=== PATIENT | male | born 1955 | race Two or more races ===

== ENCOUNTER 2017-09-29 12:45 | Emergency (ER) | payer MEDICAID ==
[~2017-09-29] VITALS: Ht 177.8 cm; Wt 90.3 kg
[2017-09-29 12:46] VITALS: BP 138/80
--- NOTE | 2017-09-29 12:46 | Emergency Room Report ---
History of Present Illness General Source: EMS Present Illness HPI Patient was sent from half-way after G-tube was accidentally removed. The patient was sent in for G-tube replacement. Tube been replaced with a Parks catheter. There was no drainage from the G-tube. Patient had not been vomiting. There was no fever. The patient noted be nonverbal. Allergies: Coded Allergies: No Known Allergies (Unverified , 09/29/17) Patient History Past Medical History: see triage record Reviewed Nursing Documentation: PMH: Agreed; PSxH: Agreed Review of Systems All Other Systems: limited - by nonverbal Physical Exam General Appearance: well appearing, no apparent distress, alert, Chronically Ill Head: atraumatic ENT: other - nonverbal Neck: supple, limited range of motion Respiratory: no respiratory distress Gastrointestinal: soft, other - abdomen with parks through stoma, slight drainage Musculoskeletal: no calf tenderness Neurologic: alert, motor weakness, other - eyes open, makes hand signs Psychiatric: mood/affect normal Skin: no rash, other - slight bleeding from stoma Medical Decision Making Diagnostic Impression: Primary Impression: PEG (percutaneous endoscopic gastrostomy) adjustment/replacement/removal ER Course Patient presented for G-tube replacement. Gastrostomy tube was replaced with sterile technique. Post procedure x-ray showed adequate gastrostomy tube placement. Patient tolerated well without complications. The patient was discharged back to half-way. Patient was return for persistent vomiting, other concerns. Status: improved Disposition: [facility] Condition: Stable Hansel Hernández MD Sep 29, 2017 12:46
[2017-09-29] MEDS ORDERED: Gastrograffin 30ml ORAL ONE (13:00)
--- NOTE | 2017-09-29 13:52 | Diagnostic Imaging Report ---
Indication: Dislodged gastrostomy tube. Status post Gastrostomy tube replacement. Technique: Portable frontal view of the abdomen obtained after injection of 30 mL of Gastrografin via the gastrostomy tube. Comparison: None Findings: Contrast opacification of the stomach, pylorus and proximal small bowel. Bowel gas pattern is nonspecific but not overtly obstructive. No acute osseous abnormality. Impression: Gastrostomy tube in the stomach.
== END 2017-09-29 13:10 ==
LOC: EDBD 12:45 → EMR 13:10
DX: Z43.1 Encounter for attention to gastrostomy (principal)
CPT/HCPCS: 43760; 74018; 99283; Q9963

== ENCOUNTER 2018-04-14 19:58 | Inpatient (IN) | payer MEDICAID, OTHER ==
[~2018-04-14] VITALS: Ht 180.3 cm; Wt 103.9 kg
[~2018-04-14 19:58] MED LIST: COLACE100 MG ORAL; DULCOLAX10 MG RC; FLEET ENEMA133 ML RECTAL; IPRATROPIUM BRO15 ML NS; MIDODRINE HCL10 MG ORAL; MILK OF MA400 MG/51 ORAL; PANTOPRAZOLE SO40 MG ORAL; SENNA8.6 M2 PO; TYLENOL325 MG ORAL; ZINC SULFATE220 M1 ORAL
--- NOTE | 2018-04-14 20:17 | Emergency Room Report ---
History of Present Illness General Chief Complaint: Altered Level of Consciousness Source: Medical Record, EMS Present Illness HPI 62-year-old [facility], history of diabetes dysphagia hyperlipidemia CVA bedbound is presenting with altered mental status. Reportedly patient is more altered than his normal. Patient is able to nod yes and no to questions, he seems to be alert, he is also following commands. It looks like he was discharged from [facility] at the end of January for acute renal failure hyperglycemia and hyperkalemia and respiratory distress Allergies: Coded Allergies: No Known Allergies (Unverified , 09/29/17) Patient History Limited by: medical condition Past Medical History: see triage record Past Surgical History: unable to obtain Pertinent Family History: unable to obtain Reviewed Nursing Documentation: PMH: Agreed; PSxH: Agreed Nursing Documentation-PMH Past Medical History: No History, Except For Hx Hypertension: Yes Hx Diabetes: Yes Hx Cerebrovascular Accident: Yes Review of Systems All Other Systems: limited - nonverb Physical Exam Vital Signs Date Time Temp Pulse Resp B/P (MAP) Pulse Ox O2 Delivery O2 Flow Rate FiO2 04/14/18 19:49 97.9 102 19 112/68 94 Nasal Cannula 2.0 Sp02 EP Interpretation: reviewed, normal General Appearance: mild distress, Chronically Ill Head: normocephalic, atraumatic Eyes: bilateral eye normal inspection, bilateral eye PERRL, bilateral eye EOMI ENT: normal ENT inspection, normal pharynx, normal voice, moist mucus membranes Neck: normal inspection, full range of motion, supple Respiratory: no respiratory distress, no retraction, no accessory muscle use Cardiovascular #1: normal inspection, regular rate, rhythm, no edema, normal capillary refill Cardiovascular #2: 2+ radial (R), 2+ radial (L) Gastrointestinal: other - peg tube, nontender entire abd Genitourinary: no CVA tenderness Musculoskeletal: normal inspection, back normal, normal range of motion, non- tender Neurologic: other - awake, eyes open, answering yes/no questiosn appropriately with head mvoements, squeezes hand on command Psychiatric: other Skin: normal inspection, normal color, no rash, warm/dry, well hydrated, normal turgor Medical Decision Making Diagnostic Impression: Primary Impression: Altered level of consciousness ER Course 61-year-old male here for being more altered than his normal, unknown time frame DDX: Dehydration, metabolic, ACS, UTI, pneumonia, ICH/CVA Plan: Obtain labs, ua, EKG, CXR CT head ER course: Patient has been monitored during ED stay, HD stable awake and alert Signed out to Dr Raines Pls follow up labs and reassess for final disposition Please note that this Emergency Department Report was dictated using [employer] nurse technology software, occasionally this can lead to erroneous entry secondary to interpretation by the dictation equipment. EKG Diagnostic Results EP Interpretation: Yes Rate: Tachycardic Rhythm: NSR ST Segments: No acute changes , PVCs ASA given to patient: No Rhythm Strip EP Interpretation: Yes Rate:105 Rhythm: NSR, + PVCs, no ectopy Chest X-ray CXR: Ordered: Yes 1 view Indication: Altered mental status EP interpretation: Yes Interpretation: No consolidation, no effusion, no PTX, no acute cardiopulmonary disease Impression: No acute disease Electronically signed by Maliha Thomas MD CT/MRI/US Diagnostic Results CT/MRI/US Diagnostic Results : Imaging Test Ordered: CT HEAD Impression No acute intracranial process. Involutional changes with small vessel disease. Old infarcts. Old orbital fractures. Last Vital Signs Date Time Temp Pulse Resp B/P (MAP) Pulse Ox O2 Delivery O2 Flow Rate FiO2 04/14/18 19:49 97.9 102 19 112/68 94 Nasal Cannula 2.0 Maliha Thomas M.D. Apr 14, 2018 20:17
[2018-04-14 21:25] LABS: HEMATOCRIT 28.8 % (42.0-52.0); HEMOGLOBIN 9.1 G/DL (14.2-18.0); MEAN CORPUSCULAR VOLUME 80 FL (80-99); PLATELET COUNT 480 K/UL (150-450); RED BLOOD COUNT 3.61 M/UL (4.70-6.10); RED CELL DISTRIBUTION WIDTH 15.8 % (11.6-14.8); WHITE BLOOD COUNT 18.3 K/UL (4.8-10.8)
[2018-04-14 21:26] LABS: BASOPHILS % (AUTO) 1.6 % (0.0-2.0); EOSINOPHILS % (AUTO) 2.2 % (0.0-3.0); LYMPHOCYTES % (AUTO) 11.3 % (20.0-45.0); MONOCYTES % (AUTO) 5.2 % (1.0-10.0); NEUTROPHILS % (AUTO) 79.7 % (45.0-75.0)
[2018-04-14 21:29] LABS: APPEARANCE,URINE SLIGHTLY CLOUDY; BILIRUBIN, URINE NEGATIVE (NEGATIVE); GLUCOSE, URINE (UA) 3+ (NEGATIVE); KETONES,URINE 1+ (NEGATIVE); LEUKOCYTE ESTERASE ,URINE 1+ (NEGATIVE); NITRITE,URINE NEGATIVE (NEGATIVE); PH,URINE 5 (4.5-8.0); PROTEIN,URINE 3+ (NEGATIVE); UROBILINOGEN,URINE 8 MG/DL (0.0-1.0)
[2018-04-14 21:30] VITALS: BP 145/93
[2018-04-14 21:30] LABS: COLOR,URINE AMBER
[2018-04-14 21:33] LABS: ANION GAP 5 mmol/L (5-15); BLOOD UREA NITROGEN 28 mg/dL (7-18); CALCIUM 8.8 MG/DL (8.5-10.1); CARBON DIOXIDE 32 MMOL/L (21-32); CHLORIDE 96 MMOL/L (98-107); CREATININE 0.7 MG/DL (0.55-1.30); POTASSIUM 3.5 MMOL/L (3.5-5.1); SODIUM 133 MMOL/L (136-145)
[2018-04-14 21:38] LABS: ALANINE AMINOTRANSFERASE 17 U/L (12-78); ALBUMIN 1.5 G/DL (3.4-5.0); ALBUMIN/GLOBULIN RATIO 0.3 (1.0-2.7); ALKALINE PHOSPHATASE 110 U/L (46-116); ASPARTATE AMINO TRANSFERASE 19 U/L (15-37); BILIRUBIN,TOTAL 0.6 MG/DL (0.2-1.0); CREATINE KINASE 44 U/L (26-308)
[2018-04-14] MEDS ORDERED: cefTRIAXone 1 GM in NS 55 ML IVPB ONE (22:15)
[2018-04-14 22:30] VITALS: BP 158/93
[2018-04-14 23:30] VITALS: BP 103/69
[2018-04-15] VITALS (7 sets, daily range): BP systolic 90–137; BP diastolic 48–70
[2018-04-15] MEDS ORDERED: Metoprolol 5mg/5ml Inj IVP ONE (01:00)
[2018-04-15] MEDS ORDERED: dilTIAZem HCl 25mg/5ml Inj ONE (02:41)
[2018-04-15 05:24] LABS: APPEARANCE,URINE CLOUDY; BILIRUBIN, URINE NEGATIVE (NEGATIVE); COLOR,URINE YELLOW; GLUCOSE, URINE (UA) NEGATIVE (NEGATIVE); KETONES,URINE NEGATIVE (NEGATIVE); LEUKOCYTE ESTERASE ,URINE 1+ (NEGATIVE); NITRITE,URINE NEGATIVE (NEGATIVE); PH,URINE 6 (4.5-8.0); PROTEIN,URINE 2+ (NEGATIVE); UROBILINOGEN,URINE 4 MG/DL (0.0-1.0)
[2018-04-15 05:46] LABS: HEMATOCRIT 26.1 % (42.0-52.0); HEMOGLOBIN 8.2 G/DL (14.2-18.0); MEAN CORPUSCULAR VOLUME 80 FL (80-99); PLATELET COUNT 435 K/UL (150-450); RED BLOOD COUNT 3.27 M/UL (4.70-6.10); RED CELL DISTRIBUTION WIDTH 16.3 % (11.6-14.8); WHITE BLOOD COUNT 15.5 K/UL (4.8-10.8)
[2018-04-15 06:01] LABS: ANION GAP 4 mmol/L (5-15); BLOOD UREA NITROGEN 21 mg/dL (7-18); CALCIUM 8.1 MG/DL (8.5-10.1); CARBON DIOXIDE 29 MMOL/L (21-32); CHLORIDE 102 MMOL/L (98-107); CREATININE 0.6 MG/DL (0.55-1.30); POTASSIUM 3.8 MMOL/L (3.5-5.1); SODIUM 135 MMOL/L (136-145)
[2018-04-15] MEDS ORDERED: Zinc Sulfate 220mg cap ORAL SCH (09:00)
[2018-04-15] MEDS ORDERED: Docusate 100mg/10ml Liq NG SCH (09:00)
[2018-04-15] MEDS ORDERED: Milk of Magnesia 30ml Ud ORAL SCH (09:00)
[2018-04-15] MEDS ORDERED: Docusate 100mg cap ORAL SCH (09:00)
[2018-04-15] MEDS ORDERED: Fleet's Enema 133ml RECTAL SCH (09:00)
[2018-04-15] MEDS ORDERED: Midodrine 10mg tab ORAL SCH (09:00)
[2018-04-15] MEDS ORDERED: Acetaminophen 650mg/20.3ml NG PRN ×2 (09:30→15:18)
[2018-04-15] MEDS ORDERED: Acetaminophen 650mg/20.3ml ORAL PRN (09:30)
--- NOTE | 2018-04-15 10:42 | Diagnostic Imaging Report ---
Indication: Shortness of breath Technique: One view of the chest Comparison: none Findings: The heart is upper limits normal in size. The lungs and pleural spaces are clear. Impression: No acute process
[2018-04-15] MEDS ORDERED: Midodrine 10mg tab NG SCH ×2 (13:00→18:00)
--- NOTE | 2018-04-15 13:37 | History and Physical ---
History of Present Illness General Date patient seen: Apr 15, 2018 Time patient seen: 08:30 Reason for Hospitalization: Altered Level of Consciousness Present Illness HPI 62 year old man from [facility], history of diabetes type 2, CVA, dysphagia hyperlipidemia who presented from the facility with confusion, worse than baseline mentation. In ED he was found to have fever of 101 and leukocytosis + pyuria. Patient is unable to provide any information due to his current medical condition Family and Social History - unable to obtain from patient Allergies: Coded Allergies: No Known Allergies (Unverified , 09/29/17) Medication History Scheduled Docusate Sodium* (Colace*), 100 MG ORAL DAILY, (Reported) Magnesium Hydroxide* (Milk Of Magnesia*), 30 ML ORAL DAILY, (Reported) Midodrine* (Proamatine*), 10 MG ORAL THREE TIMES A DAY, (Reported) Na Phos,M-B/Na Phos,Di-Ba* (Fleet Enema*), 133 ML RECTAL DAILY, (Reported) Pantoprazole* (Pantoprazole*), 40 MG ORAL DAILY, (Reported) Zinc Sulfate (Zinc Sulfate*), 220 MG ORAL DAILY, (Reported) Scheduled PRN Acetaminophen (Tylenol), 650 MG ORAL Q6H PRN for Prn Pain/Headache/Temp > 101, ( Reported) Miscellaneous Medications Bisacodyl (Dulcolax), 10 MG RC, (Reported) Ipratropium [place] (Ipratropium [place]), 15 ML NS, (Reported) Sennosides (Senna), 8.6 MG PO, (Reported) Patient History Healthcare decision maker Resuscitation status Advanced Directive on File Review of Systems ROS Narrative Unable to obtain due to acute encephalopathy Physical Exam General Appearance: no apparent distress, alert HEENT: normocephalic, atraumatic Neck: normal alignment, supple Respiratory/Chest: chest wall non-tender, lungs clear, normal breath sounds Cardiovascular/Chest: normal peripheral pulses, normal rate, regular rhythm Abdomen: normal bowel sounds, non tender Neurologic: alert Last 24 Hour Vital Signs Date Time Temp Pulse Resp B/P (MAP) Pulse Ox O2 Delivery O2 Flow Rate FiO2 04/15/18 10:32 98.2 116 20 111/65 (80) 97 04/15/18 05:27 Nasal Cannula 2.0 04/15/18 04:00 101.5 137 40 90/48 (62) 97 04/15/18 01:44 137 153/103 04/15/18 01:34 98.3 121 19 95/59 95 Nasal Cannula 2.0 04/14/18 23:30 97.9 119 19 103/69 97 Nasal Cannula 2.0 04/14/18 22:30 97.9 19 158/93 96 Nasal Cannula 2.0 04/14/18 21:30 97.9 122 19 145/93 96 Nasal Cannula 2.0 04/14/18 20:30 102 19 Nasal Cannula 2.0 04/14/18 19:49 97.9 102 19 112/68 94 Nasal Cannula 2.0 Laboratory Tests Test 04/14/18 20:50 04/14/18 21:10 04/15/18 01:32 04/15/18 04:43 White Blood Count 18.3 K/UL (4.8-10.8) H Red Blood Count 3.61 M/UL (4.70-6.10) L Hemoglobin 9.1 G/DL (14.2-18.0) L Hematocrit 28.8 % (42.0-52.0) L Mean Corpuscular Volume 80 FL (80-99) Mean Corpuscular Hemoglobin 25.3 PG (27.0-31.0) L Mean Corpuscular Hemoglobin Concent 31.7 G/DL (32.0-36.0) L Red Cell Distribution Width 15.8 % (11.6-14.8) H Platelet Count 480 K/UL (150-450) H Mean Platelet Volume 6.3 FL (6.5-10.1) L Neutrophils (%) (Auto) 79.7 % (45.0-75.0) H Lymphocytes (%) (Auto) 11.3 % (20.0-45.0) L Monocytes (%) (Auto) 5.2 % (1.0-10.0) Eosinophils (%) (Auto) 2.2 % (0.0-3.0) Basophils (%) (Auto) 1.6 % (0.0-2.0) Sodium Level 133 MMOL/L (136-145) L Potassium Level 3.5 MMOL/L (3.5-5.1) Chloride Level 96 MMOL/L (98-107) L Carbon Dioxide Level 32 MMOL/L (21-32) Anion Gap 5 mmol/L (5-15) Blood Urea Nitrogen 28 mg/dL (7-18) H Creatinine 0.7 MG/DL (0.55-1.30) Estimat Glomerular Filtration Rate > 60 mL/min (>60) Glucose Level 203 MG/DL (74-106) H Lactic Acid Level 1.30 mmol/L (0.4-2.0) Calcium Level 8.8 MG/DL (8.5-10.1) Total Bilirubin 0.6 MG/DL (0.2-1.0) Aspartate Amino Transf (AST/SGOT) 19 U/L (15-37) Alanine Aminotransferase (ALT/SGPT) 17 U/L (12-78) Alkaline Phosphatase 110 U/L (46-116) Total Creatine Kinase 44 U/L (26-308) Troponin I 0.000 ng/mL (0.000-0.056) Total Protein 7.3 G/DL (6.4-8.2) Albumin 1.5 G/DL (3.4-5.0) L Globulin 5.8 g/dL Albumin/Globulin Ratio 0.3 (1.0-2.7) L Urine Color Sera Yellow Urine Appearance Slightly cloudy Cloudy Urine pH 5 (4.5-8.0) 6 (4.5-8.0) Urine Specific [place] 1.010 (1.005-1.035) 1.015 (1.005-1.035) Urine Protein 3+ (NEGATIVE) H 2+ (NEGATIVE) H Urine Glucose (UA) 3+ (NEGATIVE) H Negative (NEGATIVE) Urine Ketones 1+ (NEGATIVE) H Negative (NEGATIVE) Urine Blood 5+ (NEGATIVE) H 5+ (NEGATIVE) H Urine Nitrite Negative (NEGATIVE) Negative (NEGATIVE) Urine Bilirubin Negative (NEGATIVE) Negative (NEGATIVE) Urine Ictotest Negative (NEGATIVE) Urine Urobilinogen 8 MG/DL (0.0-1.0) H 4 MG/DL (0.0-1.0) H Urine Leukocyte Esterase 1+ (NEGATIVE) H 1+ (NEGATIVE) H Urine RBC Tntc /HPF (0 - 0) H Tntc /HPF (0 - 0) H Urine WBC 5-10 /HPF (0 - 0) H 15-20 /HPF (0 - 0) H Urine Squamous Epithelial Cells Few /LPF (NONE/OCC) None /LPF (NONE/OCC) Urine Bacteria Few /HPF (NONE) Few /HPF (NONE) Arterial Blood pH 7.499 (7.350-7.450) Arterial Blood Partial Pressure CO2 38.3 mmHg (35.0-45.0) Arterial Blood Partial Pressure O2 69.3 mmHg (75.0-100.0) L Arterial Blood HCO3 29.1 mmol/L (22.0-26.0) H Arterial Blood Oxygen Saturation 93.7 % (95-100) L Arterial Blood Base Excess 5.6 (-2-2) H Richi Test Positive Test 04/15/18 05:24 White Blood Count 15.5 K/UL (4.8-10.8) H Red Blood Count 3.27 M/UL (4.70-6.10) L Hemoglobin 8.2 G/DL (14.2-18.0) L Hematocrit 26.1 % (42.0-52.0) L Mean Corpuscular Volume 80 FL (80-99) Mean Corpuscular Hemoglobin 25.1 PG (27.0-31.0) L Mean Corpuscular Hemoglobin Concent 31.5 G/DL (32.0-36.0) L Red Cell Distribution Width 16.3 % (11.6-14.8) H Platelet Count 435 K/UL (150-450) Mean Platelet Volume 6.6 FL (6.5-10.1) Neutrophils (%) (Auto) % (45.0-75.0) Lymphocytes (%) (Auto) % (20.0-45.0) Monocytes (%) (Auto) % (1.0-10.0) Eosinophils (%) (Auto) % (0.0-3.0) Basophils (%) (Auto) % (0.0-2.0) Sodium Level 135 MMOL/L (136-145) L Potassium Level 3.8 MMOL/L (3.5-5.1) Chloride Level 102 MMOL/L (98-107) Carbon Dioxide Level 29 MMOL/L (21-32) Anion Gap 4 mmol/L (5-15) L Blood Urea Nitrogen 21 mg/dL (7-18) H Creatinine 0.6 MG/DL (0.55-1.30) Estimat Glomerular Filtration Rate > 60 mL/min (>60) Glucose Level 196 MG/DL (74-106) H Calcium Level 8.1 MG/DL (8.5-10.1) L Height (Feet): 5 Height (Inches): 11.00 Weight (Pounds): 174 Medications Current Medications Medications (Trade) Dose Ordered Sig/Patience Route PRN Reason Start Time Stop Time Status Last Admin Dose Admin Acetaminophen (Tylenol) 650 mg Q6H PRN NG Prn Pain/Headache/Temp > 101 04/15/18 09:30 05/15/18 04:44 Ceftriaxone Sodium 1 gm/ Dextrose 55 ml @ 110 mls/hr Q24H IVPB 04/15/18 22:00 04/22/18 21:59 Docusate Sodium (Colace) 100 mg DAILY NG 04/15/18 09:00 05/15/18 08:59 04/15/18 12:29 Lansoprazole (Prevacid) 30 mg DAILY NG 04/16/18 09:00 05/16/18 08:59 Magnesium Hydroxide (Mom) 30 ml DAILY NG 04/16/18 09:00 05/15/18 08:59 Midodrine (Pro-Amatine) 10 mg THREE TIMES A DAY NG 04/15/18 13:00 05/15/18 08:59 04/15/18 12:30 Sennosides (Senokot) 8.6 mg BEDTIME NG 04/15/18 21:00 05/15/18 20:59 Sodium Phosphate (Fleet's Sodium Phosl Enema) 133 ml DAILY RECTAL 04/15/18 09:00 05/15/18 08:59 04/15/18 08:42 Zinc Sulfate (Zinc Sulfate) 220 mg DAILY NG 04/16/18 09:00 05/15/18 08:59 Assessment/Plan Assessment/Plan #Acute metabolic encephalopathy #Severe Sepsis #UTI #Hyponatremia -admit to telemetry unit -broaden antibiotic to meropenem -follow up blood and urine culture -IV hydration -Repeat BMP in AM -check serial troponins -ID evaluation -Supportive care -Fall precautions -Aspiration precautions Reginald Pulido MD Apr 15, 2018 13:37
--- NOTE | 2018-04-15 14:09 | Infectious Diseases Prog Note ---
Assessment/Plan Assessment/Plan Full consult dictated: A) 1) sepsis, leukocytosis, fevers 2) uti, + ua 3) pmh noted 4) allergies - nkda P) 1) vancomycin, meropenem 2) check cultures, labs and chest x-ray 3) thank you Subjective Allergies: Coded Allergies: No Known Allergies (Unverified , 09/29/17) Objective Vital Signs Last 24 Hour Vital Signs Date Time Temp Pulse Resp B/P (MAP) Pulse Ox O2 Delivery O2 Flow Rate FiO2 04/15/18 10:32 98.2 116 20 111/65 (80) 97 04/15/18 05:27 Nasal Cannula 2.0 04/15/18 04:00 101.5 137 40 90/48 (62) 97 04/15/18 01:44 137 153/103 04/15/18 01:34 98.3 121 19 95/59 95 Nasal Cannula 2.0 04/14/18 23:30 97.9 119 19 103/69 97 Nasal Cannula 2.0 04/14/18 22:30 97.9 19 158/93 96 Nasal Cannula 2.0 04/14/18 21:30 97.9 122 19 145/93 96 Nasal Cannula 2.0 04/14/18 20:30 102 19 Nasal Cannula 2.0 04/14/18 19:49 97.9 102 19 112/68 94 Nasal Cannula 2.0 Height (Feet): 5 Height (Inches): 11.00 Weight (Pounds): 174 Laboratory Tests Test 04/14/18 20:50 04/14/18 21:10 04/15/18 01:32 04/15/18 04:43 White Blood Count 18.3 K/UL (4.8-10.8) H Red Blood Count 3.61 M/UL (4.70-6.10) L Hemoglobin 9.1 G/DL (14.2-18.0) L Hematocrit 28.8 % (42.0-52.0) L Mean Corpuscular Volume 80 FL (80-99) Mean Corpuscular Hemoglobin 25.3 PG (27.0-31.0) L Mean Corpuscular Hemoglobin Concent 31.7 G/DL (32.0-36.0) L Red Cell Distribution Width 15.8 % (11.6-14.8) H Platelet Count 480 K/UL (150-450) H Mean Platelet Volume 6.3 FL (6.5-10.1) L Neutrophils (%) (Auto) 79.7 % (45.0-75.0) H Lymphocytes (%) (Auto) 11.3 % (20.0-45.0) L Monocytes (%) (Auto) 5.2 % (1.0-10.0) Eosinophils (%) (Auto) 2.2 % (0.0-3.0) Basophils (%) (Auto) 1.6 % (0.0-2.0) Sodium Level 133 MMOL/L (136-145) L Potassium Level 3.5 MMOL/L (3.5-5.1) Chloride Level 96 MMOL/L (98-107) L Carbon Dioxide Level 32 MMOL/L (21-32) Anion Gap 5 mmol/L (5-15) Blood Urea Nitrogen 28 mg/dL (7-18) H Creatinine 0.7 MG/DL (0.55-1.30) Estimat Glomerular Filtration Rate > 60 mL/min (>60) Glucose Level 203 MG/DL (74-106) H Lactic Acid Level 1.30 mmol/L (0.4-2.0) Calcium Level 8.8 MG/DL (8.5-10.1) Total Bilirubin 0.6 MG/DL (0.2-1.0) Aspartate Amino Transf (AST/SGOT) 19 U/L (15-37) Alanine Aminotransferase (ALT/SGPT) 17 U/L (12-78) Alkaline Phosphatase 110 U/L (46-116) Total Creatine Kinase 44 U/L (26-308) Troponin I 0.000 ng/mL (0.000-0.056) Total Protein 7.3 G/DL (6.4-8.2) Albumin 1.5 G/DL (3.4-5.0) L Globulin 5.8 g/dL Albumin/Globulin Ratio 0.3 (1.0-2.7) L Urine Color Sera Yellow Urine Appearance Slightly cloudy Cloudy Urine pH 5 (4.5-8.0) 6 (4.5-8.0) Urine Specific [place] 1.010 (1.005-1.035) 1.015 (1.005-1.035) Urine Protein 3+ (NEGATIVE) H 2+ (NEGATIVE) H Urine Glucose (UA) 3+ (NEGATIVE) H Negative (NEGATIVE) Urine Ketones 1+ (NEGATIVE) H Negative (NEGATIVE) Urine Blood 5+ (NEGATIVE) H 5+ (NEGATIVE) H Urine Nitrite Negative (NEGATIVE) Negative (NEGATIVE) Urine Bilirubin Negative (NEGATIVE) Negative (NEGATIVE) Urine Ictotest Negative (NEGATIVE) Urine Urobilinogen 8 MG/DL (0.0-1.0) H 4 MG/DL (0.0-1.0) H Urine Leukocyte Esterase 1+ (NEGATIVE) H 1+ (NEGATIVE) H Urine RBC Tntc /HPF (0 - 0) H Tntc /HPF (0 - 0) H Urine WBC 5-10 /HPF (0 - 0) H 15-20 /HPF (0 - 0) H Urine Squamous Epithelial Cells Few /LPF (NONE/OCC) None /LPF (NONE/OCC) Urine Bacteria Few /HPF (NONE) Few /HPF (NONE) Arterial Blood pH 7.499 (7.350-7.450) Arterial Blood Partial Pressure CO2 38.3 mmHg (35.0-45.0) Arterial Blood Partial Pressure O2 69.3 mmHg (75.0-100.0) L Arterial Blood HCO3 29.1 mmol/L (22.0-26.0) H Arterial Blood Oxygen Saturation 93.7 % (95-100) L Arterial Blood Base Excess 5.6 (-2-2) H Richi Test Positive Test 04/15/18 05:24 White Blood Count 15.5 K/UL (4.8-10.8) H Red Blood Count 3.27 M/UL (4.70-6.10) L Hemoglobin 8.2 G/DL (14.2-18.0) L Hematocrit 26.1 % (42.0-52.0) L Mean Corpuscular Volume 80 FL (80-99) Mean Corpuscular Hemoglobin 25.1 PG (27.0-31.0) L Mean Corpuscular Hemoglobin Concent 31.5 G/DL (32.0-36.0) L Red Cell Distribution Width 16.3 % (11.6-14.8) H Platelet Count 435 K/UL (150-450) Mean Platelet Volume 6.6 FL (6.5-10.1) Neutrophils (%) (Auto) % (45.0-75.0) Lymphocytes (%) (Auto) % (20.0-45.0) Monocytes (%) (Auto) % (1.0-10.0) Eosinophils (%) (Auto) % (0.0-3.0) Basophils (%) (Auto) % (0.0-2.0) Sodium Level 135 MMOL/L (136-145) L Potassium Level 3.8 MMOL/L (3.5-5.1) Chloride Level 102 MMOL/L (98-107) Carbon Dioxide Level 29 MMOL/L (21-32) Anion Gap 4 mmol/L (5-15) L Blood Urea Nitrogen 21 mg/dL (7-18) H Creatinine 0.6 MG/DL (0.55-1.30) Estimat Glomerular Filtration Rate > 60 mL/min (>60) Glucose Level 196 MG/DL (74-106) H Calcium Level 8.1 MG/DL (8.5-10.1) L Current Medications Medications (Trade) Dose Ordered Sig/Patience Route PRN Reason Start Time Stop Time Status Last Admin Dose Admin Acetaminophen (Tylenol) 650 mg Q6H PRN NG Prn Pain/Headache/Temp > 101 04/15/18 09:30 05/15/18 04:44 Docusate Sodium (Colace) 100 mg DAILY NG 04/15/18 09:00 05/15/18 08:59 04/15/18 12:29 Lansoprazole (Prevacid) 30 mg DAILY NG 04/16/18 09:00 05/16/18 08:59 Magnesium Hydroxide (Mom) 30 ml DAILY NG 04/16/18 09:00 05/15/18 08:59 Meropenem 1 gm/ Sodium Chloride 55 ml @ 110 mls/hr Q8H IVPB 04/15/18 15:00 04/20/18 14:59 Midodrine (Pro-Amatine) 10 mg THREE TIMES A DAY NG 04/15/18 13:00 05/15/18 08:59 04/15/18 12:30 Sennosides (Senokot) 8.6 mg BEDTIME NG 04/15/18 21:00 05/15/18 20:59 Sodium Chloride 1,000 ml @ 150 mls/hr Q6H40M IV 04/15/18 14:00 05/15/18 13:59 Sodium Phosphate (Fleet's Sodium Phosl Enema) 133 ml DAILY RECTAL 04/15/18 09:00 05/15/18 08:59 04/15/18 08:42 Zinc Sulfate (Zinc Sulfate) 220 mg DAILY NG 04/16/18 09:00 05/15/18 08:59 Gwendolyn Marquez MD Apr 15, 2018 14:09
[2018-04-15] MEDS: Vancomycin 1gm/D5W 275ml IVPB SCH ×2 (15:00)
[2018-04-15] MEDS ORDERED: Meropenem 1 GM in NS 55 ML IVPB SCH (15:00)
[2018-04-15] MEDS: Meropenem 1 GM in NS 55 ML IVPB SCH ×2 (15:22→23:33)
[2018-04-15 15:46] LABS: HEMATOCRIT 24.9 % (42.0-52.0); HEMOGLOBIN 7.8 G/DL (14.2-18.0); MEAN CORPUSCULAR VOLUME 80 FL (80-99); PLATELET COUNT 417 K/UL (150-450); RED CELL DISTRIBUTION WIDTH 16.2 % (11.6-14.8); WHITE BLOOD COUNT 12.7 K/UL (4.8-10.8)
[2018-04-15 15:48] LABS: BASOPHILS % (AUTO) 1.3 % (0.0-2.0); EOSINOPHILS % (AUTO) 2.3 % (0.0-3.0); LYMPHOCYTES % (AUTO) 13.9 % (20.0-45.0); MONOCYTES % (AUTO) 4.5 % (1.0-10.0)
[2018-04-15 16:08] LABS: ANION GAP 5 mmol/L (5-15); BLOOD UREA NITROGEN 21 mg/dL (7-18); CALCIUM 7.7 MG/DL (8.5-10.1); CARBON DIOXIDE 31 MMOL/L (21-32); CHLORIDE 103 MMOL/L (98-107); CREATININE 0.5 MG/DL (0.55-1.30); POTASSIUM 3.4 MMOL/L (3.5-5.1); SODIUM 139 MMOL/L (136-145)
[2018-04-15 16:12] LABS: ALANINE AMINOTRANSFERASE 6 U/L (12-78); ALBUMIN 1.1 G/DL (3.4-5.0); ALBUMIN/GLOBULIN RATIO 0.2 (1.0-2.7); ALKALINE PHOSPHATASE 79 U/L (46-116); ASPARTATE AMINO TRANSFERASE 19 U/L (15-37); BILIRUBIN,TOTAL 0.3 MG/DL (0.2-1.0); PHOSPHORUS 3.1 MG/DL (2.5-4.9)
[2018-04-15] MEDS: Vancomycin 1 GM in D5W 275 ML IVPB SCH ×2 (16:12→23:35)
--- NOTE | 2018-04-15 16:55 | Consultation ---
History of Present Illness General Date patient seen: Apr 15, 2018 Chief Complaint: Altered Level of Consciousness Reason for Consultation: sepsis/wounds Present Illness HPI 62 year old male detention resident noted to have leukocytosis, fevers, altered status. admitted for care and management. on admission noted to have multiple wounds requiring care. surgery called to evaluate and assist with care /management. patient seen, chart reviewed, patient examined. Allergies: Coded Allergies: No Known Allergies (Unverified , 09/29/17) Medication History Scheduled Docusate Sodium* (Colace*), 100 MG ORAL DAILY, (Reported) Magnesium Hydroxide* (Milk Of Magnesia*), 30 ML ORAL DAILY, (Reported) Midodrine* (Proamatine*), 10 MG ORAL THREE TIMES A DAY, (Reported) Na Phos,M-B/Na Phos,Di-Ba* (Fleet Enema*), 133 ML RECTAL DAILY, (Reported) Pantoprazole* (Pantoprazole*), 40 MG ORAL DAILY, (Reported) Zinc Sulfate (Zinc Sulfate*), 220 MG ORAL DAILY, (Reported) Scheduled PRN Acetaminophen (Tylenol), 650 MG ORAL Q6H PRN for Prn Pain/Headache/Temp > 101, ( Reported) Miscellaneous Medications Bisacodyl (Dulcolax), 10 MG RC, (Reported) Ipratropium [place]on (Ipratropium [place]), 15 ML NS, (Reported) Sennosides (Senna), 8.6 MG PO, (Reported) Patient History Limited by: medical condition History Provided By: Medical Record, PMD Healthcare decision maker Resuscitation status Advanced Directive on File Past Medical/Surgical History Past Medical/Surgical History: (1) Sacral decubitus ulcer (2) Sepsis (3) Leukocytosis (4) Fever Review of Systems All Other Systems: negative except mentioned in HPI Physical Exam General Appearance: no apparent distress, alert Lines, tubes and drains: peripheral HEENT: mucous membranes moist Neck: normal inspection Respiratory/Chest: normal breath sounds Cardiovascular/Chest: regularly irregular Abdomen: soft, no organomegaly, no mass Extremities: other Skin Exam: other Last 24 Hour Vital Signs Date Time Temp Pulse Resp B/P (MAP) Pulse Ox O2 Delivery O2 Flow Rate FiO2 04/15/18 14:45 95.7 74 16 137/52 (80) 99 04/15/18 10:32 98.2 116 20 111/65 (80) 97 04/15/18 05:27 Nasal Cannula 2.0 04/15/18 04:00 101.5 137 40 90/48 (62) 97 04/15/18 01:44 137 153/103 04/15/18 01:34 98.3 121 19 95/59 95 Nasal Cannula 2.0 04/14/18 23:30 97.9 119 19 103/69 97 Nasal Cannula 2.0 04/14/18 22:30 97.9 19 158/93 96 Nasal Cannula 2.0 04/14/18 21:30 97.9 122 19 145/93 96 Nasal Cannula 2.0 04/14/18 20:30 102 19 Nasal Cannula 2.0 04/14/18 19:49 97.9 102 19 112/68 94 Nasal Cannula 2.0 Laboratory Tests Test 04/14/18 20:50 04/14/18 21:10 04/15/18 01:32 04/15/18 04:43 White Blood Count 18.3 K/UL (4.8-10.8) H Red Blood Count 3.61 M/UL (4.70-6.10) L Hemoglobin 9.1 G/DL (14.2-18.0) L Hematocrit 28.8 % (42.0-52.0) L Mean Corpuscular Volume 80 FL (80-99) Mean Corpuscular Hemoglobin 25.3 PG (27.0-31.0) L Mean Corpuscular Hemoglobin Concent 31.7 G/DL (32.0-36.0) L Red Cell Distribution Width 15.8 % (11.6-14.8) H Platelet Count 480 K/UL (150-450) H Mean Platelet Volume 6.3 FL (6.5-10.1) L Neutrophils (%) (Auto) 79.7 % (45.0-75.0) H Lymphocytes (%) (Auto) 11.3 % (20.0-45.0) L Monocytes (%) (Auto) 5.2 % (1.0-10.0) Eosinophils (%) (Auto) 2.2 % (0.0-3.0) Basophils (%) (Auto) 1.6 % (0.0-2.0) Sodium Level 133 MMOL/L (136-145) L Potassium Level 3.5 MMOL/L (3.5-5.1) Chloride Level 96 MMOL/L (98-107) L Carbon Dioxide Level 32 MMOL/L (21-32) Anion Gap 5 mmol/L (5-15) Blood Urea Nitrogen 28 mg/dL (7-18) H Creatinine 0.7 MG/DL (0.55-1.30) Estimat Glomerular Filtration Rate > 60 mL/min (>60) Glucose Level 203 MG/DL (74-106) H Lactic Acid Level 1.30 mmol/L (0.4-2.0) Calcium Level 8.8 MG/DL (8.5-10.1) Total Bilirubin 0.6 MG/DL (0.2-1.0) Aspartate Amino Transf (AST/SGOT) 19 U/L (15-37) Alanine Aminotransferase (ALT/SGPT) 17 U/L (12-78) Alkaline Phosphatase 110 U/L (46-116) Total Creatine Kinase 44 U/L (26-308) Troponin I 0.000 ng/mL (0.000-0.056) Total Protein 7.3 G/DL (6.4-8.2) Albumin 1.5 G/DL (3.4-5.0) L Globulin 5.8 g/dL Albumin/Globulin Ratio 0.3 (1.0-2.7) L Urine Color Sera Yellow Urine Appearance Slightly cloudy Cloudy Urine pH 5 (4.5-8.0) 6 (4.5-8.0) Urine Specific Baring 1.010 (1.005-1.035) 1.015 (1.005-1.035) Urine Protein 3+ (NEGATIVE) H 2+ (NEGATIVE) H Urine Glucose (UA) 3+ (NEGATIVE) H Negative (NEGATIVE) Urine Ketones 1+ (NEGATIVE) H Negative (NEGATIVE) Urine Blood 5+ (NEGATIVE) H 5+ (NEGATIVE) H Urine Nitrite Negative (NEGATIVE) Negative (NEGATIVE) Urine Bilirubin Negative (NEGATIVE) Negative (NEGATIVE) Urine Ictotest Negative (NEGATIVE) Urine Urobilinogen 8 MG/DL (0.0-1.0) H 4 MG/DL (0.0-1.0) H Urine Leukocyte Esterase 1+ (NEGATIVE) H 1+ (NEGATIVE) H Urine RBC Tntc /HPF (0 - 0) H Tntc /HPF (0 - 0) H Urine WBC 5-10 /HPF (0 - 0) H 15-20 /HPF (0 - 0) H Urine Squamous Epithelial Cells Few /LPF (NONE/OCC) None /LPF (NONE/OCC) Urine Bacteria Few /HPF (NONE) Few /HPF (NONE) Arterial Blood pH 7.499 (7.350-7.450) Arterial Blood Partial Pressure CO2 38.3 mmHg (35.0-45.0) Arterial Blood Partial Pressure O2 69.3 mmHg (75.0-100.0) L Arterial Blood HCO3 29.1 mmol/L (22.0-26.0) H Arterial Blood Oxygen Saturation 93.7 % (95-100) L Arterial Blood Base Excess 5.6 (-2-2) H Richi Test Positive Test 04/15/18 05:24 04/15/18 14:02 04/15/18 15:15 White Blood Count 15.5 K/UL (4.8-10.8) H 12.7 K/UL (4.8-10.8) H Red Blood Count 3.27 M/UL (4.70-6.10) L 3.10 M/UL (4.70-6.10) L Hemoglobin 8.2 G/DL (14.2-18.0) L 7.8 G/DL (14.2-18.0) L Hematocrit 26.1 % (42.0-52.0) L 24.9 % (42.0-52.0) L Mean Corpuscular Volume 80 FL (80-99) 80 FL (80-99) Mean Corpuscular Hemoglobin 25.1 PG (27.0-31.0) L 25.2 PG (27.0-31.0) L Mean Corpuscular Hemoglobin Concent 31.5 G/DL (32.0-36.0) L 31.3 G/DL (32.0-36.0) L Red Cell Distribution Width 16.3 % (11.6-14.8) H 16.2 % (11.6-14.8) H Platelet Count 435 K/UL (150-450) 417 K/UL (150-450) Mean Platelet Volume 6.6 FL (6.5-10.1) 6.2 FL (6.5-10.1) L Neutrophils (%) (Auto) % (45.0-75.0) 78.0 % (45.0-75.0) H Lymphocytes (%) (Auto) % (20.0-45.0) 13.9 % (20.0-45.0) L Monocytes (%) (Auto) % (1.0-10.0) 4.5 % (1.0-10.0) Eosinophils (%) (Auto) % (0.0-3.0) 2.3 % (0.0-3.0) Basophils (%) (Auto) % (0.0-2.0) 1.3 % (0.0-2.0) Sodium Level 135 MMOL/L (136-145) L 139 MMOL/L (136-145) Potassium Level 3.8 MMOL/L (3.5-5.1) 3.4 MMOL/L (3.5-5.1) L Chloride Level 102 MMOL/L (98-107) 103 MMOL/L (98-107) Carbon Dioxide Level 29 MMOL/L (21-32) 31 MMOL/L (21-32) Anion Gap 4 mmol/L (5-15) L 5 mmol/L (5-15) Blood Urea Nitrogen 21 mg/dL (7-18) H 21 mg/dL (7-18) H Creatinine 0.6 MG/DL (0.55-1.30) 0.5 MG/DL (0.55-1.30) L Estimat Glomerular Filtration Rate > 60 mL/min (>60) > 60 mL/min (>60) Glucose Level 196 MG/DL (74-106) H 211 MG/DL (74-106) H Calcium Level 8.1 MG/DL (8.5-10.1) L 7.7 MG/DL (8.5-10.1) L Arterial Blood pH 7.424 (7.350-7.450) Arterial Blood Partial Pressure CO2 45.4 mmHg (35.0-45.0) H Arterial Blood Partial Pressure O2 114.9 mmHg (75.0-100.0) H Arterial Blood HCO3 29.1 mmol/L (22.0-26.0) H Arterial Blood Oxygen Saturation 97.7 % (95-100) Arterial Blood Base Excess 4.2 (-2-2) H Richi Test Positive Lactic Acid Level 0.90 mmol/L (0.4-2.0) Phosphorus Level 3.1 MG/DL (2.5-4.9) Magnesium Level 1.8 MG/DL (1.8-2.4) Total Bilirubin 0.3 MG/DL (0.2-1.0) Aspartate Amino Transf (AST/SGOT) 19 U/L (15-37) Alanine Aminotransferase (ALT/SGPT) 6 U/L (12-78) L Alkaline Phosphatase 79 U/L (46-116) Total Protein 6.0 G/DL (6.4-8.2) L Albumin 1.1 G/DL (3.4-5.0) L Globulin 4.9 g/dL Albumin/Globulin Ratio 0.2 (1.0-2.7) L Height (Feet): 5 Height (Inches): 11.00 Weight (Pounds): 174 Medications Current Medications Medications (Trade) Dose Ordered Sig/Patience Route PRN Reason Start Time Stop Time Status Last Admin Dose Admin Acetaminophen (Tylenol) 650 mg Q6H PRN NG Prn Pain/Headache/Temp > 101 04/15/18 15:18 05/15/18 15:17 Docusate Sodium (Colace) 100 mg DAILY NG 04/16/18 09:00 05/15/18 08:59 Lansoprazole (Prevacid) 30 mg DAILY NG 04/16/18 09:00 05/16/18 08:59 Magnesium Hydroxide (Mom) 30 ml DAILY NG 04/16/18 09:00 05/15/18 08:59 Meropenem 1 gm/ Sodium Chloride 55 ml @ 110 mls/hr Q8H IVPB 04/15/18 16:00 04/20/18 15:59 04/15/18 15:22 Midodrine (Pro-Amatine) 10 mg THREE TIMES A DAY NG 04/15/18 18:00 05/15/18 08:59 Sennosides (Senokot) 8.6 mg BEDTIME NG 04/15/18 21:00 05/15/18 20:59 Sodium Chloride 1,000 ml @ 150 mls/hr Q6H40M IV 04/15/18 15:15 05/15/18 13:59 04/15/18 15:23 Sodium Phosphate (Fleet's Sodium Phosl Enema) 133 ml DAILY RECTAL 04/16/18 09:00 05/15/18 08:59 Vancomycin HCl (Vanco rx to dose) 1 ea DAILY PRN MISC Per rx protocol 04/16/18 09:00 05/15/18 14:14 Vancomycin HCl 1 gm/Dextrose 275 ml @ 183.708 mls/hr Q8H IVPB 04/15/18 16:00 04/20/18 15:59 04/15/18 16:12 Zinc Sulfate (Zinc Sulfate) 220 mg DAILY NG 04/16/18 09:00 05/15/18 08:59 Assessment/Plan Problem List: (1) Sacral decubitus ulcer Assessment & Plan: Pt presents with multiple pressure injuries present on admission. Full thickness pressure injury R trochanter with 60% slough with surrounding pink granulation(L)3.8cm x (W)3.5cm.Periwound clean and intact. Full thickness pressure injury to sacrum .Bone is visible at base of wound .Wound bed otherwise beefy red with tunneling and undermining .Small amt sanguineous exudate noted .(L)10.5cm x (W)9cm x (D)4.1cm ,undermining 7 -4 by 5.8cm @9o'clock,Tunneling at 7o'clock by 7.7cm. Periwound indurated with non- blanchable erythema,with additional scattered partial thickness ulcers noted. # 3 partial thickness wounds distal/lateral R tibia. Wounds are dry without erythema or elevation in skin temp. DTPI lateral R malleolus ,wound is maroon and fluctuant (L)1.1cm x (W)1.2cm. DTPI lateral R heel .Wound is fluctuant with brownish discoloration and marginal erythema (L)2.5cm x (W)1.5cm. Partial thickness wound distal L tibia.wound bed moist and viable. Edges adherent and flat. Periwound is clean and intact (L)1.5cm x (W)1cm. DTPI noted to L lateral Malleolus.Wound is maroon in color and indurated (L) 1.5cm x (W)1.2cm.Periwound is marquez pink. DTPI lateral L malleolus.An indurated area that is maroon in colour with surrounding pink granulation. Periwound is fluctuant without erythema. (L)4cm x (W)3.8cm. Tx.Plan: Cleanse Sacral wound with Saline.Loosely pack with Hydrogel Impregnated Kerlix ( Attn.To tunneling at 7o'clock).Apply Triad Paste periwound.Cover with ABD pad and secure with Tegaderm drsg .Change daily and prn. Apply Triad paste to wound R trochanter.Cover with Optifoam drsg .Change Daily and prn. Apply Cavilon to wounds lateral R lower ext and cover with Optifoam drsg .Change every 3 days and prn. Apply Cavilon Skin Barrier to Lateral L malleolus and L heel .Cover with Optifoam drsg .Change every 7 days andprn. Apply Cavilon Skin Barrier to Wound L lower ext .Cover with Optifoam drsg .Change every 7 days and prn. Apply Cavilon Skin Barrier to L lateral Malleolus and L heel .Cover with Optifoam drsg .Change every 7 days and prn. Air Fluidized mattress. Reposition at least every 2 hours or as tolerated. Off-load heels with pillow. ICD Codes: L89.159 - Pressure ulcer of sacral region, unspecified stage SNOMED: 088012353 (2) Sepsis ICD Codes: A41.9 - Sepsis, unspecified organism SNOMED: 95225172 (3) Fever ICD Codes: R50.9 - Fever, unspecified SNOMED: 540235815 Tonio Raza Apr 15, 2018 16:55
[2018-04-15] MEDS ORDERED: Acetaminophen 650mg/20.3ml GT PRN (17:09)
--- NOTE | 2018-04-15 17:39 | Diagnostic Imaging Report ---
Indications: Altered mental status Technique: Spiral acquisitions obtained through the brain. Angled axial and coronal 5 x 5 mm slices were reconstructed. Total dose length product 1414.31 mGycm. CTDI vol(s) 70.38 mGy. Dose reduction achieved using automated exposure control Comparison: None. Findings: There is some image degradation due to motion artifact. There is age-related enlargement of the ventricles and extra axial CSF spaces. There is periventricular deep white matter low-attenuation. Multiple old lacunar infarcts are seen in the bilateral periventricular deep white matter, the left cerebellar hemisphere, and in the midbrain. There is an area of encephalomalacia involving the left high parietal lobe, consistent with old infarct. No acute intracranial hemorrhage or edema. No mass effect nor midline shift. There is minimal sphenoid sinus mucosal thickening. There is mild inward displacement of the medial orbital hidalgo, could be developmental or posttraumatic. The calvarium is grossly intact. Impression: Limited exam, due to image degradation from motion artifact. Subtle pathology could be obscured Chronic and age-related changes, as described Multiple old infarcts as described Negative for acute intracranial bleed or mass effect This agrees with the preliminary interpretation provided overnight by [facility] teleradiology service. The CT scanner at [facility] is accredited by the [employer] and the scans are performed using protocols designed to limit radiation exposure to as low as reasonably achievable to attain images of sufficient resolution adequate for diagnostic evaluation.
[2018-04-15] MEDS: Midodrine 10mg tab GT SCH (19:30)
[2018-04-15] MEDS: Sennosides 8.6mg tab GT SCH (20:55)
[2018-04-15] MEDS ORDERED: Sennosides 8.6mg tab NG SCH ×2 (21:00)
[2018-04-15] MEDS ORDERED: Lidocaine 1% MPF 10mg/ml 5ml INJ SCH (22:00)
[2018-04-15] MEDS ORDERED: cefTRIAXone 1gm/D5W 55ml IVPB SCH ×2 (22:00)
[2018-04-16] VITALS: BP 108/68
[2018-04-16 04:00] VITALS: BP 105/56
[2018-04-16 06:11] LABS: BASOPHILS % (AUTO) 2.2 % (0.0-2.0); EOSINOPHILS % (AUTO) 2.8 % (0.0-3.0); HEMATOCRIT 25.2 % (42.0-52.0); HEMOGLOBIN 8.1 G/DL (14.2-18.0); LYMPHOCYTES % (AUTO) 12.5 % (20.0-45.0); MEAN CORPUSCULAR VOLUME 81 FL (80-99); MONOCYTES % (AUTO) 6.4 % (1.0-10.0); NEUTROPHILS % (AUTO) 76.1 % (45.0-75.0); PLATELET COUNT 386 K/UL (150-450); RED BLOOD COUNT 3.12 M/UL (4.70-6.10); RED CELL DISTRIBUTION WIDTH 16.3 % (11.6-14.8); WHITE BLOOD COUNT 7.8 K/UL (4.8-10.8)
[2018-04-16 06:52] LABS: ALANINE AMINOTRANSFERASE 7 U/L (12-78); ALBUMIN 1.1 G/DL (3.4-5.0); ALBUMIN/GLOBULIN RATIO 0.2 (1.0-2.7); ALKALINE PHOSPHATASE 70 U/L (46-116); ANION GAP 4 mmol/L (5-15); ASPARTATE AMINO TRANSFERASE 18 U/L (15-37); BILIRUBIN,TOTAL 0.2 MG/DL (0.2-1.0); BLOOD UREA NITROGEN 16 mg/dL (7-18); CALCIUM 7.7 MG/DL (8.5-10.1); CARBON DIOXIDE 29 MMOL/L (21-32); CHLORIDE 105 MMOL/L (98-107); CREATININE 0.5 MG/DL (0.55-1.30); POTASSIUM 3.4 MMOL/L (3.5-5.1); SODIUM 138 MMOL/L (136-145)
[2018-04-16] MEDS: Vancomycin 1 GM in D5W 275 ML IVPB SCH ×3 (08:00→23:50)
[2018-04-16] MEDS: Vancomycin 1gm/D5W 275ml IVPB SCH ×2 (08:56)
[2018-04-16] MEDS ORDERED: Milk of Magnesia 30ml Ud NG SCH ×2 (09:00)
[2018-04-16] MEDS ORDERED: Zinc Sulfate 220mg cap NG SCH ×2 (09:00)
[2018-04-16] MEDS ORDERED: Docusate 100mg/10ml Liq NG SCH (09:00)
--- NOTE | 2018-04-16 09:05 | Diagnostic Imaging Report ---
Indication: Shortness of breath Technique: One view of the chest Comparison: 04/14/2018 Findings: There is some atelectasis at left lung base and equivocal retrocardiac opacity, both of which are new findings. The remainder of the lungs are clear. The pleural spaces are clear. The heart size is upper limits of normal Impression: Left basilar atelectasis. Questionable retrocardiac infiltrate
[2018-04-16] MEDS: Midodrine 10mg tab GT SCH ×3 (09:06→17:29)
[2018-04-16] MEDS: Zinc Sulfate 220mg cap GT SCH (09:06)
[2018-04-16] MEDS: Docusate 100mg/10ml Liq GT SCH (09:06)
[2018-04-16] MEDS: Milk of Magnesia 30ml Ud GT SCH (09:06)
--- NOTE | 2018-04-16 09:17 | General Progress Note ---
Assessment/Plan Assessment/Plan #Acute metabolic encephalopathy #Severe Sepsis #UTI -continue to monitor in step down unit -continue vancomycin and meropenem -ID eval appreciated -continue IV hydration -monitor daily labs -Supportive care -Fall precautions -Aspiration precautions -ok to restart tube feeds #Sacral pressure ulcers,present on admission -seen by Dr. Raza -wound care recs appreciated #Hyponatremia-present on admission, now resolved -continue to monitor BMP VTE PPx Heparin SC I spent 45 minutes on this patient's case, and 25 minutes was dedicated to counseling and/or care coordination. Subjective Date patient seen: Apr 16, 2018 Time patient seen: 08:30 ROS Limited/Unobtainable: Yes Allergies: Coded Allergies: No Known Allergies (Unverified , 09/29/17) Subjective Medicine follow up for sepsis possible due to UTI Also with dacral pressure ulcers, present on admission Overnight was transferred to step down unit for hypotension after [facility] was called. Responded well to IV fluids. More alert today. Objective Last 24 Hour Vital Signs Date Time Temp Pulse Resp B/P (MAP) Pulse Ox O2 Delivery O2 Flow Rate FiO2 04/16/18 04:00 80 04/16/18 04:00 97.6 19 105/56 (72) 96 04/16/18 00:00 97.4 20 108/68 (81) 96 04/16/18 00:00 86 04/15/18 20:07 Nasal Cannula 2.0 04/15/18 20:00 97.1 18 103/70 (81) 96 04/15/18 18:00 95.5 16 95/62 (73) 96 04/15/18 16:00 72 04/15/18 16:00 95.5 63 16 95/56 (69) 96 04/15/18 14:45 Nasal Cannula 2.0 04/15/18 14:45 95.7 74 16 137/52 (80) 99 04/15/18 10:32 98.2 116 20 111/65 (80) 97 Intake and Output 04/15/18 04/16/18 19:00 07:00 Intake Total 685.000 ml 3585.208 ml Output Total 300 ml 900 ml Balance 385.000 ml 2685.208 ml Intake Free Water 250 ml IV Total 685.000 ml 1535.208 ml Other 1800 ml Output Urine Total 300 ml 900 ml Laboratory Tests 04/15/18 14:02: Arterial Blood pH 7.424, Arterial Blood Partial Pressure CO2 45.4H, Arterial Blood Partial Pressure O2 114.9H, Arterial Blood HCO3 29.1H, Arterial Blood Oxygen Saturation 97.7, Arterial Blood Base Excess 4.2H, Richi Test Positive 04/15/18 15:15: White Blood Count 12.7H, Red Blood Count 3.10L, Hemoglobin 7.8L, Hematocrit 24.9L, Mean Corpuscular Volume 80, Mean Corpuscular Hemoglobin 25.2L, Mean Corpuscular Hemoglobin Concent 31.3L, Red Cell Distribution Width 16.2H, Platelet Count 417, Mean Platelet Volume 6.2L, Neutrophils (%) (Auto) 78.0H, Lymphocytes (%) (Auto) 13.9L, Monocytes (%) (Auto) 4.5, Eosinophils (%) (Auto) 2.3, Basophils (%) (Auto) 1.3, Sodium Level 139, Potassium Level 3.4L, Chloride Level 103, Carbon Dioxide Level 31, Anion Gap 5, Blood Urea Nitrogen 21H, Creatinine 0.5L, Estimat Glomerular Filtration Rate > 60, Glucose Level 211H, Lactic Acid Level 0.90, Calcium Level 7.7L, Phosphorus Level 3.1, Magnesium Level 1.8, Total Bilirubin 0.3, Aspartate Amino Transf (AST/SGOT) 19, Alanine Aminotransferase (ALT/SGPT) 6L, Alkaline Phosphatase 79, Total Protein 6.0L, Albumin 1.1L, Globulin 4.9, Albumin/Globulin Ratio 0.2L 04/16/18 05:05: White Blood Count 7.8, Red Blood Count 3.12L, Hemoglobin 8.1L, Hematocrit 25.2L , Mean Corpuscular Volume 81, Mean Corpuscular Hemoglobin 26.0L, Mean Corpuscular Hemoglobin Concent 32.2, Red Cell Distribution Width 16.3H, Platelet Count 386, Mean Platelet Volume 7.1, Neutrophils (%) (Auto) 76.1H, Lymphocytes (%) (Auto) 12.5L, Monocytes (%) (Auto) 6.4, Eosinophils (%) (Auto) 2.8, Basophils (%) (Auto) 2.2H, Sodium Level 138, Potassium Level 3.4L, Chloride Level 105, Carbon Dioxide Level 29, Anion Gap 4L, Blood Urea Nitrogen 16, Creatinine 0.5L, Estimat Glomerular Filtration Rate > 60, Glucose Level 138H , Calcium Level 7.7L, Total Bilirubin 0.2, Aspartate Amino Transf (AST/SGOT) 18 , Alanine Aminotransferase (ALT/SGPT) 7L, Alkaline Phosphatase 70, Total Protein 5.8L, Albumin 1.1L, Globulin 4.7, Albumin/Globulin Ratio 0.2L Height (Feet): 5 Height (Inches): 11.00 Weight (Pounds): 174 General Appearance: alert, confused Neck: normal alignment, normal inspection Cardiovascular: normal rate, regular rhythm Respiratory/Chest: chest wall non-tender, lungs clear, normal breath sounds Abdomen: non tender, soft Neurologic: alert, unresponsive Reginald Pulido MD Apr 16, 2018 09:17
[2018-04-16] MEDS: Meropenem 1 GM in NS 55 ML IVPB SCH ×3 (12:10→23:50)
[2018-04-16] MEDS: Fleet's Enema 133ml RECTAL SCH (12:18)
[2018-04-16] MEDS: Heparin 5000 units/ml inj SUBQ SCH ×2 (12:21→20:12)
[2018-04-16] MEDS: NovoLOG Insulin Flexpen SUBQ SCH ×3 (13:18→20:13)
--- NOTE | 2018-04-16 15:21 | Surgery Progress Note ---
Surgery Progress Note Subjective Additional Comments no acute events. stable. Objective Last 24 Hour Vital Signs Date Time Temp Pulse Resp B/P (MAP) Pulse Ox O2 Delivery O2 Flow Rate FiO2 04/16/18 04:00 80 04/16/18 04:00 97.6 19 105/56 (72) 96 04/16/18 00:00 97.4 20 108/68 (81) 96 04/16/18 00:00 86 04/15/18 20:07 Nasal Cannula 2.0 04/15/18 20:00 97.1 18 103/70 (81) 96 04/15/18 18:00 95.5 16 95/62 (73) 96 04/15/18 16:00 72 04/15/18 16:00 95.5 63 16 95/56 (69) 96 I&O Intake and Output 04/15/18 04/16/18 19:00 07:00 Intake Total 685.000 ml 3585.208 ml Output Total 300 ml 900 ml Balance 385.000 ml 2685.208 ml Intake Free Water 250 ml IV Total 685.000 ml 1535.208 ml Other 1800 ml Output Urine Total 300 ml 900 ml Dressing: saturated Wound: other Drains: other Cardiovascular: RSR Respiratory: clear, decreased breath sounds Abdomen: soft, non-distended Extremities: other Laboratory Tests Test 04/16/18 05:05 White Blood Count 7.8 K/UL (4.8-10.8) Red Blood Count 3.12 M/UL (4.70-6.10) L Hemoglobin 8.1 G/DL (14.2-18.0) L Hematocrit 25.2 % (42.0-52.0) L Mean Corpuscular Volume 81 FL (80-99) Mean Corpuscular Hemoglobin 26.0 PG (27.0-31.0) L Mean Corpuscular Hemoglobin Concent 32.2 G/DL (32.0-36.0) Red Cell Distribution Width 16.3 % (11.6-14.8) H Platelet Count 386 K/UL (150-450) Mean Platelet Volume 7.1 FL (6.5-10.1) Neutrophils (%) (Auto) 76.1 % (45.0-75.0) H Lymphocytes (%) (Auto) 12.5 % (20.0-45.0) L Monocytes (%) (Auto) 6.4 % (1.0-10.0) Eosinophils (%) (Auto) 2.8 % (0.0-3.0) Basophils (%) (Auto) 2.2 % (0.0-2.0) H Sodium Level 138 MMOL/L (136-145) Potassium Level 3.4 MMOL/L (3.5-5.1) L Chloride Level 105 MMOL/L (98-107) Carbon Dioxide Level 29 MMOL/L (21-32) Anion Gap 4 mmol/L (5-15) L Blood Urea Nitrogen 16 mg/dL (7-18) Creatinine 0.5 MG/DL (0.55-1.30) L Estimat Glomerular Filtration Rate > 60 mL/min (>60) Glucose Level 138 MG/DL (74-106) H Calcium Level 7.7 MG/DL (8.5-10.1) L Total Bilirubin 0.2 MG/DL (0.2-1.0) Aspartate Amino Transf (AST/SGOT) 18 U/L (15-37) Alanine Aminotransferase (ALT/SGPT) 7 U/L (12-78) L Alkaline Phosphatase 70 U/L (46-116) Total Protein 5.8 G/DL (6.4-8.2) L Albumin 1.1 G/DL (3.4-5.0) L Globulin 4.7 g/dL Albumin/Globulin Ratio 0.2 (1.0-2.7) L Plan Problems: (1) Sacral decubitus ulcer Assessment & Plan: Pt presents with multiple pressure injuries present on admission. Full thickness pressure injury R trochanter with 60% slough with surrounding pink granulation(L)3.8cm x (W)3.5cm.Periwound clean and intact. Full thickness pressure injury to sacrum .Bone is visible at base of wound .Wound bed otherwise beefy red with tunneling and undermining .Small amt sanguineous exudate noted .(L)10.5cm x (W)9cm x (D)4.1cm ,undermining 7 -4 by 5.8cm @9o'clock,Tunneling at 7o'clock by 7.7cm. Periwound indurated with non- blanchable erythema,with additional scattered partial thickness ulcers noted. # 3 partial thickness wounds distal/lateral R tibia. Wounds are dry without erythema or elevation in skin temp. DTPI lateral R malleolus ,wound is maroon and fluctuant (L)1.1cm x (W)1.2cm. DTPI lateral R heel .Wound is fluctuant with brownish discoloration and marginal erythema (L)2.5cm x (W)1.5cm. Partial thickness wound distal L tibia.wound bed moist and viable. Edges adherent and flat. Periwound is clean and intact (L)1.5cm x (W)1cm. DTPI noted to L lateral Malleolus.Wound is maroon in color and indurated (L) 1.5cm x (W)1.2cm.Periwound is marquez pink. DTPI lateral L malleolus.An indurated area that is maroon in colour with surrounding pink granulation. Periwound is fluctuant without erythema. (L)4cm x (W)3.8cm. Tx.Plan: Cleanse Sacral wound with Saline.Loosely pack with Hydrogel Impregnated Kerlix ( Attn.To tunneling at 7o'clock).Apply Triad Paste periwound.Cover with ABD pad and secure with Tegaderm drsg .Change daily and prn. Apply Triad paste to wound R trochanter.Cover with Optifoam drsg .Change Daily and prn. Apply Cavilon to wounds lateral R lower ext and cover with Optifoam drsg .Change every 3 days and prn. Apply Cavilon Skin Barrier to Lateral L malleolus and L heel .Cover with Optifoam drsg .Change every 7 days andprn. Apply Cavilon Skin Barrier to Wound L lower ext .Cover with Optifoam drsg .Change every 7 days and prn. Apply Cavilon Skin Barrier to L lateral Malleolus and L heel .Cover with Optifoam drsg .Change every 7 days and prn. Air Fluidized mattress. Reposition at least every 2 hours or as tolerated. Off-load heels with pillow. (2) Sepsis Assessment & Plan: leukocytosis resolving. labs noted. orders placed (3) Fever Tonio Raza Apr 16, 2018 15:21
--- NOTE | 2018-04-16 16:04 | Infectious Diseases Prog Note ---
Assessment/Plan Assessment/Plan Full consult dictated: A) 1) sepsis, leukocytosis, fevers 2) uti, + ua, ? pna 3) pmh noted 4) allergies - nkda P) 1) vancomycin, meropenem 2) check cultures, labs and chest x-ray 3) will f/u Subjective Allergies: Coded Allergies: No Known Allergies (Unverified , 09/29/17) Objective Vital Signs Last 24 Hour Vital Signs Date Time Temp Pulse Resp B/P (MAP) Pulse Ox O2 Delivery O2 Flow Rate FiO2 04/16/18 11:40 89 04/16/18 07:42 87 04/16/18 04:00 80 04/16/18 04:00 97.6 19 105/56 (72) 96 04/16/18 00:00 97.4 20 108/68 (81) 96 04/16/18 00:00 86 04/15/18 20:07 Nasal Cannula 2.0 04/15/18 20:00 97.1 18 103/70 (81) 96 04/15/18 18:00 95.5 16 95/62 (73) 96 Height (Feet): 5 Height (Inches): 11.00 Weight (Pounds): 174 Microbiology Date/Time Source Procedure Growth Status 04/14/18 20:50 Blood Blood Culture - Preliminary NO GROWTH AFTER 24 HOURS Resulted 04/14/18 20:35 Blood Blood Culture - Preliminary NO GROWTH AFTER 24 HOURS Resulted 04/15/18 20:10 Nasal Nares Influenza Types A,B Antigen (OLE) - Final Complete 04/15/18 04:43 Urine,Clean Catch Urine Culture - Preliminary NO GROWTH Resulted Laboratory Tests Test 04/16/18 05:05 White Blood Count 7.8 K/UL (4.8-10.8) Red Blood Count 3.12 M/UL (4.70-6.10) L Hemoglobin 8.1 G/DL (14.2-18.0) L Hematocrit 25.2 % (42.0-52.0) L Mean Corpuscular Volume 81 FL (80-99) Mean Corpuscular Hemoglobin 26.0 PG (27.0-31.0) L Mean Corpuscular Hemoglobin Concent 32.2 G/DL (32.0-36.0) Red Cell Distribution Width 16.3 % (11.6-14.8) H Platelet Count 386 K/UL (150-450) Mean Platelet Volume 7.1 FL (6.5-10.1) Neutrophils (%) (Auto) 76.1 % (45.0-75.0) H Lymphocytes (%) (Auto) 12.5 % (20.0-45.0) L Monocytes (%) (Auto) 6.4 % (1.0-10.0) Eosinophils (%) (Auto) 2.8 % (0.0-3.0) Basophils (%) (Auto) 2.2 % (0.0-2.0) H Sodium Level 138 MMOL/L (136-145) Potassium Level 3.4 MMOL/L (3.5-5.1) L Chloride Level 105 MMOL/L (98-107) Carbon Dioxide Level 29 MMOL/L (21-32) Anion Gap 4 mmol/L (5-15) L Blood Urea Nitrogen 16 mg/dL (7-18) Creatinine 0.5 MG/DL (0.55-1.30) L Estimat Glomerular Filtration Rate > 60 mL/min (>60) Glucose Level 138 MG/DL (74-106) H Calcium Level 7.7 MG/DL (8.5-10.1) L Total Bilirubin 0.2 MG/DL (0.2-1.0) Aspartate Amino Transf (AST/SGOT) 18 U/L (15-37) Alanine Aminotransferase (ALT/SGPT) 7 U/L (12-78) L Alkaline Phosphatase 70 U/L (46-116) Total Protein 5.8 G/DL (6.4-8.2) L Albumin 1.1 G/DL (3.4-5.0) L Globulin 4.7 g/dL Albumin/Globulin Ratio 0.2 (1.0-2.7) L Current Medications Medications (Trade) Dose Ordered Sig/Patience Route PRN Reason Start Time Stop Time Status Last Admin Dose Admin Acetaminophen (Tylenol) 650 mg Q6H PRN GT Prn Pain/Headache/Temp > 101 04/15/18 17:09 05/15/18 17:08 Dextrose (Dextrose 50%) 25 ml Q30M PRN IV Hypoglycemia 04/16/18 08:00 05/16/18 07:59 Dextrose (Dextrose 50%) 50 ml Q30M PRN IV Hypoglycemia 04/16/18 08:00 05/16/18 07:59 Docusate Sodium (Colace) 100 mg DAILY GT 04/16/18 09:00 05/15/18 08:59 04/16/18 09:06 Heparin Sodium (Porcine) (Heparin 5000 units/ml) 5,000 units EVERY 12 HOURS SUBQ 04/16/18 09:15 05/16/18 09:14 04/16/18 12:21 Insulin Aspart (NovoLOG) BEFORE MEALS AND HS SUBQ 04/16/18 11:30 05/16/18 11:29 04/16/18 13:18 Lansoprazole (Prevacid) 30 mg DAILY GT 04/16/18 09:00 05/16/18 08:59 04/16/18 09:06 Magnesium Hydroxide (Mom) 30 ml DAILY GT 04/16/18 09:00 05/15/18 08:59 04/16/18 09:06 Meropenem 1 gm/ Sodium Chloride 55 ml @ 110 mls/hr Q8H IVPB 04/15/18 16:00 04/20/18 15:59 04/16/18 15:44 Midodrine (Pro-Amatine) 10 mg THREE TIMES A DAY GT 04/15/18 18:00 05/15/18 08:59 04/16/18 13:21 Sennosides (Senokot) 8.6 mg BEDTIME GT 04/15/18 21:00 05/15/18 20:59 04/15/18 20:55 Sodium Chloride 1,000 ml @ 150 mls/hr Q6H40M IV 04/15/18 15:15 05/15/18 13:59 04/16/18 13:14 Sodium Phosphate (Fleet's Sodium Phosl Enema) 133 ml DAILY RECTAL 04/16/18 09:00 05/15/18 08:59 04/16/18 12:18 Vancomycin HCl (Vanco rx to dose) 1 ea DAILY PRN MISC Per rx protocol 04/16/18 09:00 05/15/18 14:14 Vancomycin HCl 1 gm/Dextrose 275 ml @ 183.708 mls/hr Q8H IVPB 04/15/18 16:00 04/20/18 15:59 04/16/18 08:00 Zinc Sulfate (Zinc Sulfate) 220 mg DAILY GT 04/16/18 09:00 05/15/18 08:59 04/16/18 09:06 Gwendolyn Marquez MD Apr 16, 2018 16:04
[2018-04-16 20:00] VITALS: BP 92/54
[2018-04-16] MEDS: Sennosides 8.6mg tab GT SCH (20:11)
--- NOTE | 2018-04-16 22:00 | Consultation ---
DATE OF CONSULTATION: 04/16/2018 INFECTIOUS DISEASE CONSULTATION: CONSULTING PHYSICIAN: Gwendolyn Marquez M.D. ATTENDING PHYSICIAN: David Lindsey M.D. REFERRING PHYSICIAN: Reginald Pulido M.D. REASON FOR CONSULTATION: Sepsis, leukocytosis, fevers, UTI, pneumonia. CHIEF COMPLAINT: The patient's chief complaint coming to the hospital was confusion, altered mental status, fevers, leukocytosis. HISTORY OF PRESENT ILLNESS: This is a 62-year-old male who comes in to [facility] with altered mental status, fevers, leukocytosis. The patient is septic. Workup shows that he has UTI, pneumonia. Infectious Diseases consult requested for antibiotic management. The patient was placed on Vanco, meropenem. He has a sacral wound that is being followed by Surgery, looks fairly clean. The patient is not a good historian, but is more alert today than yesterday. The patient is continued on Vanco and meropenem for now. He is currently in the step-down unit. REVIEW OF SYSTEMS: CONSTITUTIONAL: The patient has a Naik. He has generalized fatigue, but more alert today. HEAD AND NECK: No head pain or neck pain. CARDIAC: No chest pain. GASTROINTESTINAL: No nausea, vomiting, diarrhea. GENITOURINARY: Has a Naik. PULMONARY: Mild cough, congestion, but no significant increase in secretions or hemoptysis. SKIN: No rash or itching. EXTREMITIES: No extremity pain. NEUROLOGIC: No seizures. PAST MEDICAL HISTORY: Includes the following. The patient has a past medical history of dysphagia, hyperlipidemia, CVA, aspiration risk, diabetes. He comes from a senior living. Comes in with confusion, fevers, leukocytosis. He has a sacral wound that was noted. He has history of hypertension also. ALLERGIES: No known drug allergies. SOCIAL HISTORY: Negative for smoking, alcohol, or drug use currently. FAMILY HISTORY: Noncontributory. MEDICATIONS: Upon reviewing the MAR, he is on following medications. He is on insulin, Vanco, meropenem. He is on IV fluid. He is on docusate. He has been on Prevacid. He is on magnesium hydroxide, zinc sulfate, midodrine, acetaminophen. Outside medications noted also noted and reconciliated. PHYSICAL EXAMINATION: VITAL SIGNS: His T-max was 101.5 and his pulse rate has been as high as 137. Currently temperature 97.6, pulse rate 80, respiratory rate 19, blood pressure 105/56, saturation 96%. GENERAL: The patient is more alert today. No acute distress. HEAD AND NECK: Oral exam, no thrush. Eye exam, no icterus. Neck is supple. Normocephalic. No JVD. HEART: Regular. No obvious gallop or murmur. ABDOMEN: Soft. Positive bowel sounds. Nontender. LUNGS: Few bilateral rhonchi and possible rales at the bases. SKIN: No rash. Sacral wound was noted looks fairly clean. Other wounds were noted. MUSCULOSKELETAL: No effusion. Legs are without cellulitis. PERIPHERAL VASCULAR: No cyanosis or gangrene. GENITOURINARY: He does have a Naik. Urine is cloudy. LINE SITES: Without phlebitis. NEUROLOGIC: Generalized weakness. More responsive today. LABORATORY DATA: White count 7.8, hemoglobin 8.1, white count as high as 18.3 on admission. Creatinine is 0.5. UA had too many to count RBCs, 15 to 20 white blood cells, and 1+ leukocyte esterase. IMAGING STUDIES: Chest x-ray with left atelectasis with possible retrocardiac infiltrate. Cultures, blood and urine culture negative to date. Influenza screen is negative. Sputum culture has been ordered. ASSESSMENT AND PLAN: 1. The patient has sepsis, leukocytosis, fevers, tachycardia, SIRS criteria. Most likely, the patient has UTI, sepsis, rule out pneumonia. The patient is at risk for aspiration and also community-acquired pneumonia. He does have history of CVA and dysphagia putting him at risk for aspiration. Continue meropenem and Vanco for MRSA Streptococcus pneumoniae coverage and gram-negative anaerobic coverage. Continue Vanco, meropenem. Check cultures including urine culture for possible UTI, sputum culture for possible pneumonia, and continue treatment and monitor sepsis status. Leukocytosis and fevers have improved. 2. The patient has a history of CVA. 3. Dysphagia. 4. Aspiration risk. 5. Diabetes. 6. Hypertension. 7. Anemia. 8. Diabetes and hypertension treatment per primary. 9. Dyslipidemia. 10. Decubitus wound looks fairly clean at sacral area, followed by Surgery. Continue wound care per Surgery and protocol. 11. Altered mental status, sepsis, fevers, leukocytosis. 12. Allergies are negative. 13. Family history noncontributory. 14. MAR was noted. 15. Case was discussed with RN. 16. Social history is negative. Gwendolyn Marquez M.D. DR: JADE JOB#: [id number] CC:
[2018-04-17] VITALS: BP 90/52
[2018-04-17 04:00] VITALS: BP 124/74
[2018-04-17 04:57] LABS: BASOPHILS % (AUTO) 1.6 % (0.0-2.0); EOSINOPHILS % (AUTO) 3.2 % (0.0-3.0); HEMATOCRIT 27.1 % (42.0-52.0); HEMOGLOBIN 8.6 G/DL (14.2-18.0); LYMPHOCYTES % (AUTO) 28.6 % (20.0-45.0); MEAN CORPUSCULAR VOLUME 81 FL (80-99); MONOCYTES % (AUTO) 4.3 % (1.0-10.0); NEUTROPHILS % (AUTO) 62.3 % (45.0-75.0); PLATELET COUNT 477 K/UL (150-450); RED BLOOD COUNT 3.35 M/UL (4.70-6.10); RED CELL DISTRIBUTION WIDTH 16.1 % (11.6-14.8); WHITE BLOOD COUNT 6.1 K/UL (4.8-10.8)
[2018-04-17 05:07] LABS: ANION GAP 4 mmol/L (5-15); BLOOD UREA NITROGEN 12 mg/dL (7-18); CALCIUM 7.8 MG/DL (8.5-10.1); CARBON DIOXIDE 29 MMOL/L (21-32); CHLORIDE 103 MMOL/L (98-107); CREATININE 0.5 MG/DL (0.55-1.30); POTASSIUM 3.4 MMOL/L (3.5-5.1); SODIUM 136 MMOL/L (136-145)
[2018-04-17] MEDS: NovoLOG Insulin Flexpen SUBQ SCH ×3 (06:18→18:37)
[2018-04-17 08:00] VITALS: BP 118/70
[2018-04-17] MEDS: Meropenem 1 GM in NS 55 ML IVPB SCH ×2 (08:00→16:10)
[2018-04-17] MEDS: Vancomycin 1 GM in D5W 275 ML IVPB SCH ×2 (08:00→16:10)
--- NOTE | 2018-04-17 08:33 | General Progress Note ---
Assessment/Plan Assessment/Plan #Acute metabolic encephalopathy #Severe Sepsis #UTI -continue to monitor in step down unit -continue vancomycin and meropenem -ID eval appreciated -continue IV hydration -monitor daily labs -Supportive care -Fall precautions -Aspiration precautions -ok to restart tube feeds #Sacral pressure ulcers,present on admission -seen by Dr. Raza -wound care recs appreciated #Hyponatremia-present on admission, now resolved -continue to monitor BMP VTE PPx Heparin SC I have spent over 60 mins reviewing records and tests and communicating with other anesthesiology medical doctor, during/following contact with patient. I spent 40 minutes on this patient's case, and 30 minutes were dedicated to counseling and/or care coordination. Discussed with patient/family, nursing staff, SW/CM, [] regarding clinical status, treatment course, and disposition planning. Time of note may not reflect time of encounter. Subjective Allergies: Coded Allergies: No Known Allergies (Unverified , 09/29/17) Subjective Medicine follow up for sepsis possible due to UTI Also with dacral pressure ulcers, present on admission stable no acute events overnight noted Objective Last 24 Hour Vital Signs Date Time Temp Pulse Resp B/P (MAP) Pulse Ox O2 Delivery O2 Flow Rate FiO2 04/17/18 04:00 98.5 98 24 124/74 (91) 100 04/17/18 04:00 100 04/17/18 04:00 Nasal Cannula 2.0 04/17/18 00:00 97.3 93 24 90/52 (65) 96 04/17/18 00:00 91 04/17/18 00:00 Nasal Cannula 2.0 04/16/18 20:00 97.7 30 92/54 (67) 96 04/16/18 20:00 94 04/16/18 20:00 Nasal Cannula 2.0 04/16/18 16:00 91 04/16/18 12:00 Nasal Cannula 2.0 04/16/18 11:40 89 04/16/18 09:00 Nasal Cannula 2.0 Intake and Output 04/16/18 04/17/18 19:00 07:00 Intake Total 1510 ml 1842.500 ml Output Total 500 ml 450 ml Balance 1010 ml 1392.500 ml Intake Free Water 100 ml IV Total 1010 ml 1182.500 ml Tube Feeding 400 ml 660 ml Output Urine Total 500 ml 450 ml # Bowel Movements 2 Laboratory Tests 04/16/18 22:45: Vancomycin Level Trough 17.7H 04/17/18 03:38: White Blood Count 6.1, Red Blood Count 3.35L, Hemoglobin 8.6L, Hematocrit 27.1L , Mean Corpuscular Volume 81, Mean Corpuscular Hemoglobin 25.6L, Mean Corpuscular Hemoglobin Concent 31.7L, Red Cell Distribution Width 16.1H, Platelet Count 477H, Mean Platelet Volume 7.2, Neutrophils (%) (Auto) 62.3, Lymphocytes (%) (Auto) 28.6, Monocytes (%) (Auto) 4.3, Eosinophils (%) (Auto) 3.2H, Basophils (%) (Auto) 1.6, Sodium Level 136, Potassium Level 3.4L, Chloride Level 103, Carbon Dioxide Level 29, Anion Gap 4L, Blood Urea Nitrogen 12, Creatinine 0.5L, Estimat Glomerular Filtration Rate > 60, Glucose Level 141H , Calcium Level 7.8L Height (Feet): 5 Height (Inches): 11.00 Weight (Pounds): 174 Objective General Appearance: alert, confused Neck: normal alignment, normal inspection Cardiovascular: normal rate, regular rhythm Respiratory/Chest: chest wall non-tender, lungs clear, normal breath sounds Abdomen: non tender, soft Neurologic: alert, unresponsive Pepper Templeton MD Apr 17, 2018 08:33
[2018-04-17] MEDS: Fleet's Enema 133ml RECTAL SCH (09:04)
[2018-04-17] MEDS: Midodrine 10mg tab GT SCH ×3 (09:04→18:36)
[2018-04-17] MEDS: Zinc Sulfate 220mg cap GT SCH (09:04)
[2018-04-17] MEDS: Milk of Magnesia 30ml Ud GT SCH (09:04)
[2018-04-17] MEDS: Docusate 100mg/10ml Liq GT SCH (09:04)
[2018-04-17] MEDS: Heparin 5000 units/ml inj SUBQ SCH ×2 (09:05→20:55)
--- NOTE | 2018-04-17 09:17 | Diagnostic Imaging Report ---
EXAM: XR Chest, 1 View CLINICAL HISTORY: INFECT TECHNIQUE: Frontal view of the chest. COMPARISON: Chest x-ray dated 04/16/18 FINDINGS: Lungs: Sub-segmental atelectasis versus infiltrate in the medial left lung base, unchanged. Unchanged prominent interstitial markings. Pleural space: Unremarkable. The costophrenic angles are sharp. No visible pneumothorax. Heart: Unremarkable. No cardiomegaly. Mediastinum: Unremarkable. Bones/joints: Unremarkable. Tubes, lines and devices: EKG leads overlie the thorax. IMPRESSION: Sub-segmental atelectasis versus infiltrate in the medial left lung base, unchanged.
[2018-04-17 12:00] VITALS: BP 124/71
[2018-04-17 16:00] VITALS: BP 124/74
--- NOTE | 2018-04-17 16:07 | Surgery Progress Note ---
Surgery Progress Note Subjective Additional Comments no acute events. labs improved. Objective Last 24 Hour Vital Signs Date Time Temp Pulse Resp B/P (MAP) Pulse Ox O2 Delivery O2 Flow Rate FiO2 04/17/18 12:00 99.3 100 28 124/71 (88) 100 04/17/18 12:00 Nasal Cannula 2.0 04/17/18 11:51 104 04/17/18 08:00 Nasal Cannula 2.0 04/17/18 08:00 98.5 102 29 118/70 (86) 99 04/17/18 07:59 106 04/17/18 04:00 98.5 98 24 124/74 (91) 100 04/17/18 04:00 100 04/17/18 04:00 Nasal Cannula 2.0 04/17/18 00:00 97.3 93 24 90/52 (65) 96 04/17/18 00:00 91 04/17/18 00:00 Nasal Cannula 2.0 04/16/18 20:00 97.7 30 92/54 (67) 96 04/16/18 20:00 94 04/16/18 20:00 Nasal Cannula 2.0 I&O Intake and Output 04/16/18 04/17/18 18:59 06:59 Intake Total 1450 ml 1902.500 ml Output Total 500 ml 450 ml Balance 950 ml 1452.500 ml Intake Free Water 100 ml IV Total 1010 ml 1182.500 ml Tube Feeding 340 ml 720 ml Output Urine Total 500 ml 450 ml # Bowel Movements 2 Dressing: other Wound: other Drains: other Cardiovascular: RSR Respiratory: clear Abdomen: soft, non-tender, present bowel sounds Extremities: other Laboratory Tests Test 04/16/18 22:45 04/17/18 03:38 Vancomycin Level Trough 17.7 ug/mL (5.0-12.0) H White Blood Count 6.1 K/UL (4.8-10.8) Red Blood Count 3.35 M/UL (4.70-6.10) L Hemoglobin 8.6 G/DL (14.2-18.0) L Hematocrit 27.1 % (42.0-52.0) L Mean Corpuscular Volume 81 FL (80-99) Mean Corpuscular Hemoglobin 25.6 PG (27.0-31.0) L Mean Corpuscular Hemoglobin Concent 31.7 G/DL (32.0-36.0) L Red Cell Distribution Width 16.1 % (11.6-14.8) H Platelet Count 477 K/UL (150-450) H Mean Platelet Volume 7.2 FL (6.5-10.1) Neutrophils (%) (Auto) 62.3 % (45.0-75.0) Lymphocytes (%) (Auto) 28.6 % (20.0-45.0) Monocytes (%) (Auto) 4.3 % (1.0-10.0) Eosinophils (%) (Auto) 3.2 % (0.0-3.0) H Basophils (%) (Auto) 1.6 % (0.0-2.0) Sodium Level 136 MMOL/L (136-145) Potassium Level 3.4 MMOL/L (3.5-5.1) L Chloride Level 103 MMOL/L (98-107) Carbon Dioxide Level 29 MMOL/L (21-32) Anion Gap 4 mmol/L (5-15) L Blood Urea Nitrogen 12 mg/dL (7-18) Creatinine 0.5 MG/DL (0.55-1.30) L Estimat Glomerular Filtration Rate > 60 mL/min (>60) Glucose Level 141 MG/DL (74-106) H Calcium Level 7.8 MG/DL (8.5-10.1) L Plan Problems: (1) Sacral decubitus ulcer Assessment & Plan: Pt presents with multiple pressure injuries present on admission. Full thickness pressure injury R trochanter with 60% slough with surrounding pink granulation(L)3.8cm x (W)3.5cm.Periwound clean and intact. Full thickness pressure injury to sacrum .Bone is visible at base of wound .Wound bed otherwise beefy red with tunneling and undermining .Small amt sanguineous exudate noted .(L)10.5cm x (W)9cm x (D)4.1cm ,undermining 7 -4 by 5.8cm @9o'clock,Tunneling at 7o'clock by 7.7cm. Periwound indurated with non- blanchable erythema,with additional scattered partial thickness ulcers noted. # 3 partial thickness wounds distal/lateral R tibia. Wounds are dry without erythema or elevation in skin temp. DTPI lateral R malleolus ,wound is maroon and fluctuant (L)1.1cm x (W)1.2cm. DTPI lateral R heel .Wound is fluctuant with brownish discoloration and marginal erythema (L)2.5cm x (W)1.5cm. Partial thickness wound distal L tibia.wound bed moist and viable. Edges adherent and flat. Periwound is clean and intact (L)1.5cm x (W)1cm. DTPI noted to L lateral Malleolus.Wound is maroon in color and indurated (L) 1.5cm x (W)1.2cm.Periwound is marquez pink. DTPI lateral L malleolus.An indurated area that is maroon in colour with surrounding pink granulation. Periwound is fluctuant without erythema. (L)4cm x (W)3.8cm. Tx.Plan: Cleanse Sacral wound with Saline.Loosely pack with Hydrogel Impregnated Kerlix ( Attn.To tunneling at 7o'clock).Apply Triad Paste periwound.Cover with ABD pad and secure with Tegaderm drsg .Change daily and prn. Apply Triad paste to wound R trochanter.Cover with Optifoam drsg .Change Daily and prn. Apply Cavilon to wounds lateral R lower ext and cover with Optifoam drsg .Change every 3 days and prn. Apply Cavilon Skin Barrier to Lateral L malleolus and L heel .Cover with Optifoam drsg .Change every 7 days andprn. Apply Cavilon Skin Barrier to Wound L lower ext .Cover with Optifoam drsg .Change every 7 days and prn. Apply Cavilon Skin Barrier to L lateral Malleolus and L heel .Cover with Optifoam drsg .Change every 7 days and prn. Air Fluidized mattress. Reposition at least every 2 hours or as tolerated. Off-load heels with pillow. (2) Sepsis Assessment & Plan: leukocytosis resolving. labs noted. orders placed (3) Fever Tonio Raza Apr 17, 2018 16:07
--- NOTE | 2018-04-17 16:15 | Cardiology Report ---
APPROVED REPORT EKG Measurement Heart [id number] Sinus tachycardia with occasional premature ventricular complexes Otherwise normal ECG
[2018-04-17 20:00] VITALS: BP 117/70
[2018-04-17] MEDS: Sennosides 8.6mg tab GT SCH (20:53)
[2018-04-17] MEDS ORDERED: Acetaminophen 650mg/20.3ml GT PRN (23:15)
[2018-04-18] VITALS (7 sets, daily range): BP systolic 97–123; BP diastolic 53–77
[2018-04-18] MEDS: Meropenem 1 GM in NS 55 ML IVPB SCH ×5 (00:06→23:56)
[2018-04-18] MEDS: NovoLOG Insulin Flexpen SUBQ SCH ×4 (00:09→17:33)
[2018-04-18] MEDS: Vancomycin 1 GM in D5W 275 ML IVPB SCH ×5 (00:12→23:59)
--- NOTE | 2018-04-18 08:08 | General Progress Note ---
Assessment/Plan Assessment/Plan #Acute metabolic encephalopathy #Severe Sepsis #UTI -continue to monitor in step down unit -continue vancomycin and meropenem -ID eval appreciated -continue IV hydration -monitor daily labs -Supportive care -Fall precautions -Aspiration precautions -ok to restart tube feeds #Sacral pressure ulcers,present on admission -seen by Dr. Raza -wound care recs appreciated #Hyponatremia-present on admission, now resolved -continue to monitor BMP VTE PPx Heparin SC I have spent over 60 mins reviewing records and tests and communicating with other medical record coder, during/following contact with patient. I spent 40 minutes on this patient's case, and 30 minutes were dedicated to counseling and/or care coordination. Discussed with patient/family, nursing staff, SW/CM, [] regarding clinical status, treatment course, and disposition planning. Time of note may not reflect time of encounter. Subjective Date patient seen: Apr 18, 2018 Allergies: Coded Allergies: No Known Allergies (Unverified , 09/29/17) Subjective Medicine follow up for sepsis possible due to UTI Also with dacral pressure ulcers, present on admission stable no acute events overnight noted Objective Last 24 Hour Vital Signs Date Time Temp Pulse Resp B/P (MAP) Pulse Ox O2 Delivery O2 Flow Rate FiO2 04/18/18 04:00 97.5 89 22 119/77 (91) 100 04/18/18 04:00 Nasal Cannula 2.0 04/18/18 00:00 Nasal Cannula 2.0 04/18/18 00:00 98.1 89 22 97/53 (68) 100 04/17/18 23:26 97 04/17/18 20:00 Nasal Cannula 2.0 04/17/18 20:00 98.9 91 24 117/70 (86) 100 04/17/18 16:00 Nasal Cannula 2.0 04/17/18 16:00 99.3 91 29 124/74 (91) 99 04/17/18 15:35 97 04/17/18 12:00 99.3 100 28 124/71 (88) 100 04/17/18 12:00 Nasal Cannula 2.0 04/17/18 11:51 104 Intake and Output 04/17/18 04/18/18 19:00 07:00 Intake Total 3230.000 ml 1530 ml Output Total 700 ml 1700 ml Balance 2530.000 ml -170 ml Intake Free Water 150 ml IV Total 2240.000 ml 750 ml Tube Feeding 840 ml 630 ml Other 150 ml Output Urine Total 700 ml 1700 ml # Bowel Movements 1 1 Height (Feet): 5 Height (Inches): 11.00 Weight (Pounds): 174 Objective General Appearance: alert, confused Neck: normal alignment, normal inspection Cardiovascular: normal rate, regular rhythm Respiratory/Chest: chest wall non-tender, lungs clear, normal breath sounds Abdomen: non tender, soft Neurologic: alert, unresponsive Pepper Templeton MD Apr 18, 2018 08:08
[2018-04-18] MEDS: Midodrine 10mg tab GT SCH ×3 (08:24→17:30)
[2018-04-18] MEDS: Docusate 100mg/10ml Liq GT SCH (08:24)
[2018-04-18] MEDS: Milk of Magnesia 30ml Ud GT SCH (08:24)
[2018-04-18] MEDS: Zinc Sulfate 220mg cap GT SCH (08:24)
[2018-04-18] MEDS: Fleet's Enema 133ml RECTAL SCH (08:25)
[2018-04-18] MEDS: Heparin 5000 units/ml inj SUBQ SCH ×2 (08:28→20:50)
--- NOTE | 2018-04-18 15:51 | Surgery Progress Note ---
Surgery Progress Note Subjective Additional Comments no acute evens. stable. Objective Last 24 Hour Vital Signs Date Time Temp Pulse Resp B/P (MAP) Pulse Ox O2 Delivery O2 Flow Rate FiO2 04/18/18 13:22 97.8 87 20 121/71 (88) 100 04/18/18 12:00 97.6 81 17 123/77 (92) 100 04/18/18 08:00 Nasal Cannula 2.0 04/18/18 08:00 97.8 87 20 121/71 (88) 100 04/18/18 07:15 Nasal Cannula 2.0 28 04/18/18 07:15 98 Nasal Cannula 2.0 28 04/18/18 04:00 97.5 89 22 119/77 (91) 100 04/18/18 04:00 Nasal Cannula 2.0 04/18/18 00:00 Nasal Cannula 2.0 04/18/18 00:00 98.1 89 22 97/53 (68) 100 04/17/18 23:26 97 04/17/18 20:00 Nasal Cannula 2.0 04/17/18 20:00 98.9 91 24 117/70 (86) 100 04/17/18 16:00 Nasal Cannula 2.0 04/17/18 16:00 99.3 91 29 124/74 (91) 99 I&O Intake and Output 04/17/18 04/18/18 18:59 06:59 Intake Total 3132.500 ml 1730 ml Output Total 700 ml 1700 ml Balance 2432.500 ml 30 ml Intake Free Water 150 ml IV Total 2192.500 ml 900 ml Tube Feeding 840 ml 630 ml Other 100 ml 50 ml Output Urine Total 700 ml 1700 ml # Bowel Movements 1 1 Dressing: other Wound: other Drains: other Cardiovascular: RSR Respiratory: clear, decreased breath sounds Abdomen: soft, present bowel sounds, non-distended Extremities: other Plan Problems: (1) Sacral decubitus ulcer Assessment & Plan: Pt presents with multiple pressure injuries present on admission. Full thickness pressure injury R trochanter with 60% slough with surrounding pink granulation(L)3.8cm x (W)3.5cm.Periwound clean and intact. Full thickness pressure injury to sacrum .Bone is visible at base of wound .Wound bed otherwise beefy red with tunneling and undermining .Small amt sanguineous exudate noted .(L)10.5cm x (W)9cm x (D)4.1cm ,undermining 7 -4 by 5.8cm @9o'clock,Tunneling at 7o'clock by 7.7cm. Periwound indurated with non- blanchable erythema,with additional scattered partial thickness ulcers noted. # 3 partial thickness wounds distal/lateral R tibia. Wounds are dry without erythema or elevation in skin temp. DTPI lateral R malleolus ,wound is maroon and fluctuant (L)1.1cm x (W)1.2cm. DTPI lateral R heel .Wound is fluctuant with brownish discoloration and marginal erythema (L)2.5cm x (W)1.5cm. Partial thickness wound distal L tibia.wound bed moist and viable. Edges adherent and flat. Periwound is clean and intact (L)1.5cm x (W)1cm. DTPI noted to L lateral Malleolus.Wound is maroon in color and indurated (L) 1.5cm x (W)1.2cm.Periwound is marquez pink. DTPI lateral L malleolus.An indurated area that is maroon in colour with surrounding pink granulation. Periwound is fluctuant without erythema. (L)4cm x (W)3.8cm. Tx.Plan: Cleanse Sacral wound with Saline.Loosely pack with Hydrogel Impregnated Kerlix ( Attn.To tunneling at 7o'clock).Apply Triad Paste periwound.Cover with ABD pad and secure with Tegaderm drsg .Change daily and prn. Apply Triad paste to wound R trochanter.Cover with Optifoam drsg .Change Daily and prn. Apply Cavilon to wounds lateral R lower ext and cover with Optifoam drsg .Change every 3 days and prn. Apply Cavilon Skin Barrier to Lateral L malleolus and L heel .Cover with Optifoam drsg .Change every 7 days andprn. Apply Cavilon Skin Barrier to Wound L lower ext .Cover with Optifoam drsg .Change every 7 days and prn. Apply Cavilon Skin Barrier to L lateral Malleolus and L heel .Cover with Optifoam drsg .Change every 7 days and prn. Air Fluidized mattress. Reposition at least every 2 hours or as tolerated. Off-load heels with pillow. (2) Sepsis Assessment & Plan: leukocytosis resolving. labs noted. orders placed (3) Fever Tonio Raza Apr 18, 2018 15:51
--- NOTE | 2018-04-18 16:46 | Infectious Diseases Prog Note ---
Assessment/Plan Assessment/Plan ASSESSMENT AND PLAN: 1. sepsis, sirs, ? uti, ? pna, leukocytosis, fevers, 1/4 bc + gram + - meropenem and vancomycin - check cultures, labs and chest x-ray 2. The patient has a history of CVA. 3. Dysphagia. 4. Aspiration risk. 5. Diabetes. 6. Hypertension. 7. Anemia. 8. Diabetes and hypertension treatment per primary. 9. Dyslipidemia. 10. Decubitus wound looks fairly clean at sacral area, followed by Surgery. Continue wound care per Surgery and protocol. 11. Altered mental status, sepsis, fevers, leukocytosis. 12. Allergies are negative. 13. Family history noncontributory. 14. MAR was noted. 15. Case was discussed with RN. 16. Social history is negative. Subjective Constitutional: Denies: fever HEENT: Denies: congestion Respiratory: Denies: shortness of breath Cardiovascular: Denies: chest pain Gastrointestinal/Abdominal: Denies: nausea, vomiting, diarrhea Genitourinary: Reports: other - + parks Neurologic: Denies: headache Psychiatric: Denies: depression Skin: Denies: rash Musculoskeletal: Denies: pain Allergies: Coded Allergies: No Known Allergies (Unverified , 09/29/17) Objective Vital Signs Last 24 Hour Vital Signs Date Time Temp Pulse Resp B/P (MAP) Pulse Ox O2 Delivery O2 Flow Rate FiO2 04/18/18 13:22 97.8 87 20 121/71 (88) 100 04/18/18 12:00 97.6 81 17 123/77 (92) 100 04/18/18 08:00 Nasal Cannula 2.0 04/18/18 08:00 97.8 87 20 121/71 (88) 100 04/18/18 07:15 Nasal Cannula 2.0 28 04/18/18 07:15 98 Nasal Cannula 2.0 28 04/18/18 04:00 97.5 89 22 119/77 (91) 100 04/18/18 04:00 Nasal Cannula 2.0 04/18/18 00:00 Nasal Cannula 2.0 04/18/18 00:00 98.1 89 22 97/53 (68) 100 04/17/18 23:26 97 04/17/18 20:00 Nasal Cannula 2.0 04/17/18 20:00 98.9 91 24 117/70 (86) 100 Height (Feet): 5 Height (Inches): 11.00 Weight (Pounds): 174 General Appearance: no acute distress HEENT: normocephalic, atraumatic, anicteric, mucous membranes moist, supple, no JVD Respiratory/Chest: crackles/rales, rhonchi - bilaterally Cardiovascular: normal rate, regular rhythm, no gallop/murmur, no JVD Abdomen: normal bowel sounds, soft, non tender, no organomegaly, non distended Genitourinary: other - + parks - uirne slt cloudy Extremities: no cyanosis Skin: no rash 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 Unchanged prominent interstitial markings. Pleural space: Unremarkable. The costophrenic angles are sharp. No visible pneumothorax. Heart: Unremarkable. No cardiomegaly. Mediastinum: Unremarkable. Bones/joints: Unremarkable. Tubes, lines and devices: EKG leads overlie the thorax. IMPRESSION: Sub-segmental atelectasis versus infiltrate in the medial left lung base, unchanged. Microbiology Date/Time Source Procedure Growth Status 04/15/18 15:30 Blood Blood Culture - Preliminary NO GROWTH AFTER 48 HOURS Resulted 04/15/18 20:10 Nasal Nares Influenza Types A,B Antigen (OLE) - Final Complete 04/15/18 04:43 Urine,Clean Catch Urine Culture - Final NO GROWTH AFTER 48 HOURS Complete 04/15/18 03:00 Rectum - Final NO CARBAPENEM-RESISTANT ENTEROBACTERI... Complete Microbiology Date/Time Source Procedure Growth Status 04/15/18 20:10 Nasal Nares Influenza Types A,B Antigen (OLE) - Final Complete Labs Test 04/16/18 05:05 04/16/18 22:45 04/17/18 03:38 White Blood Count 7.8 K/UL (4.8-10.8) 6.1 K/UL (4.8-10.8) Red Blood Count 3.12 M/UL (4.70-6.10) 3.35 M/UL (4.70-6.10) Hemoglobin 8.1 G/DL (14.2-18.0) 8.6 G/DL (14.2-18.0) Hematocrit 25.2 % (42.0-52.0) 27.1 % (42.0-52.0) Mean Corpuscular Volume 81 FL (80-99) 81 FL (80-99) Mean Corpuscular Hemoglobin 26.0 PG (27.0-31.0) 25.6 PG (27.0-31.0) Mean Corpuscular Hemoglobin Concent 32.2 G/DL (32.0-36.0) 31.7 G/DL (32.0-36.0) Red Cell Distribution Width 16.3 % (11.6-14.8) 16.1 % (11.6-14.8) Platelet Count 386 K/UL (150-450) 477 K/UL (150-450) Mean Platelet Volume 7.1 FL (6.5-10.1) 7.2 FL (6.5-10.1) Neutrophils (%) (Auto) 76.1 % (45.0-75.0) 62.3 % (45.0-75.0) Lymphocytes (%) (Auto) 12.5 % (20.0-45.0) 28.6 % (20.0-45.0) Monocytes (%) (Auto) 6.4 % (1.0-10.0) 4.3 % (1.0-10.0) Eosinophils (%) (Auto) 2.8 % (0.0-3.0) 3.2 % (0.0-3.0) Basophils (%) (Auto) 2.2 % (0.0-2.0) 1.6 % (0.0-2.0) Sodium Level 138 MMOL/L (136-145) 136 MMOL/L (136-145) Potassium Level 3.4 MMOL/L (3.5-5.1) 3.4 MMOL/L (3.5-5.1) Chloride Level 105 MMOL/L (98-107) 103 MMOL/L (98-107) Carbon Dioxide Level 29 MMOL/L (21-32) 29 MMOL/L (21-32) Anion Gap 4 mmol/L (5-15) 4 mmol/L (5-15) Blood Urea Nitrogen 16 mg/dL (7-18) 12 mg/dL (7-18) Creatinine 0.5 MG/DL (0.55-1.30) 0.5 MG/DL (0.55-1.30) Estimat Glomerular Filtration Rate > 60 mL/min (>60) > 60 mL/min (>60) Glucose Level 138 MG/DL (74-106) 141 MG/DL (74-106) Calcium Level 7.7 MG/DL (8.5-10.1) 7.8 MG/DL (8.5-10.1) Total Bilirubin 0.2 MG/DL (0.2-1.0) Aspartate Amino Transf (AST/SGOT) 18 U/L (15-37) Alanine Aminotransferase (ALT/SGPT) 7 U/L (12-78) Alkaline Phosphatase 70 U/L (46-116) Total Protein 5.8 G/DL (6.4-8.2) Albumin 1.1 G/DL (3.4-5.0) Globulin 4.7 g/dL Albumin/Globulin Ratio 0.2 (1.0-2.7) Vancomycin Level Trough 17.7 ug/mL (5.0-12.0) Current Medications Medications (Trade) Dose Ordered Sig/Patience Route PRN Reason Start Time Stop Time Status Last Admin Dose Admin Acetaminophen (Tylenol) 650 mg Q6H PRN GT Prn Pain/Headache/Temp > 101 04/17/18 23:15 05/15/18 17:08 Dextrose (Dextrose 50%) 25 ml Q30M PRN IV Hypoglycemia 04/17/18 22:30 05/16/18 07:59 Dextrose (Dextrose 50%) 50 ml Q30M PRN IV Hypoglycemia 04/17/18 22:30 05/16/18 07:59 Docusate Sodium (Colace) 100 mg DAILY GT 04/18/18 09:00 05/15/18 08:59 04/18/18 08:24 Heparin Sodium (Porcine) (Heparin 5000 units/ml) 5,000 units EVERY 12 HOURS SUBQ 04/18/18 09:00 05/16/18 09:14 04/18/18 08:28 Insulin Aspart (NovoLOG) EVERY 6 HOURS SUBQ 04/18/18 00:00 05/16/18 11:29 04/18/18 12:49 Lansoprazole (Prevacid) 30 mg DAILY GT 04/18/18 09:00 05/16/18 08:59 04/18/18 08:25 Magnesium Hydroxide (Mom) 30 ml DAILY GT 04/18/18 09:00 05/15/18 08:59 04/18/18 08:24 Meropenem 1 gm/ Sodium Chloride 55 ml @ 110 mls/hr Q8H IVPB 04/18/18 00:00 04/20/18 15:59 04/18/18 08:25 Midodrine (Pro-Amatine) 10 mg THREE TIMES A DAY GT 04/18/18 09:00 05/15/18 08:59 04/18/18 12:47 Sennosides (Senokot) 8.6 mg BEDTIME GT 04/18/18 21:00 05/15/18 20:59 Sodium Chloride 1,000 ml @ 150 mls/hr Q6H40M IV 04/17/18 22:15 05/15/18 13:59 04/18/18 05:40 Sodium Phosphate (Fleet's Sodium Phosl Enema) 133 ml DAILY RECTAL 04/18/18 09:00 05/15/18 08:59 Vancomycin HCl (Vanco rx to dose) 1 ea DAILY PRN MISC Per rx protocol 04/18/18 09:00 05/15/18 14:14 Vancomycin HCl 1 gm/Dextrose 275 ml @ 183.708 mls/hr Q8H IVPB 04/18/18 00:00 04/20/18 15:59 04/18/18 09:27 Zinc Sulfate (Zinc Sulfate) 220 mg DAILY GT 04/18/18 09:00 05/15/18 08:59 04/18/18 08:24 Gwendolyn Marquez MD Apr 18, 2018 16:46
[2018-04-18] MEDS: Sennosides 8.6mg tab GT SCH (20:50)
[2018-04-19] VITALS: BP 117/61
[2018-04-19] MEDS: NovoLOG Insulin Flexpen SUBQ SCH ×4 (00:01→17:31)
[2018-04-19 04:00] VITALS: BP 125/73
[2018-04-19 07:43] LABS: BASOPHILS % (AUTO) 1.4 % (0.0-2.0); EOSINOPHILS % (AUTO) 4.4 % (0.0-3.0); HEMATOCRIT 28.8 % (42.0-52.0); HEMOGLOBIN 8.9 G/DL (14.2-18.0); LYMPHOCYTES % (AUTO) 28.5 % (20.0-45.0); MEAN CORPUSCULAR VOLUME 82 FL (80-99); MONOCYTES % (AUTO) 5.4 % (1.0-10.0); NEUTROPHILS % (AUTO) 60.3 % (45.0-75.0); PLATELET COUNT 469 K/UL (150-450); RED BLOOD COUNT 3.51 M/UL (4.70-6.10); RED CELL DISTRIBUTION WIDTH 16.9 % (11.6-14.8); WHITE BLOOD COUNT 6.7 K/UL (4.8-10.8)
[2018-04-19 08:00] VITALS: BP 119/75
[2018-04-19 08:16] LABS: ALANINE AMINOTRANSFERASE 12 U/L (12-78); ALBUMIN 1.3 G/DL (3.4-5.0); ALBUMIN/GLOBULIN RATIO 0.3 (1.0-2.7); ALKALINE PHOSPHATASE 98 U/L (46-116); ANION GAP 3 mmol/L (5-15); ASPARTATE AMINO TRANSFERASE 29 U/L (15-37); BILIRUBIN,TOTAL 0.2 MG/DL (0.2-1.0); BLOOD UREA NITROGEN 6 mg/dL (7-18); CALCIUM 7.7 MG/DL (8.5-10.1); CARBON DIOXIDE 31 MMOL/L (21-32); CHLORIDE 104 MMOL/L (98-107); CREATININE 0.5 MG/DL (0.55-1.30); SODIUM 138 MMOL/L (136-145)
[2018-04-19] MEDS: Milk of Magnesia 30ml Ud GT SCH (08:38)
[2018-04-19] MEDS: Midodrine 10mg tab GT SCH ×3 (08:38→17:23)
[2018-04-19] MEDS: Docusate 100mg/10ml Liq GT SCH (08:38)
[2018-04-19] MEDS: Meropenem 1 GM in NS 55 ML IVPB SCH ×2 (08:38→16:21)
[2018-04-19] MEDS: Zinc Sulfate 220mg cap GT SCH (08:38)
[2018-04-19] MEDS: Fleet's Enema 133ml RECTAL SCH (08:40)
[2018-04-19] MEDS: Heparin 5000 units/ml inj SUBQ SCH ×2 (08:40→21:06)
--- NOTE | 2018-04-19 09:16 | General Progress Note ---
Assessment/Plan Assessment/Plan #Acute metabolic encephalopathy #Severe Sepsis #Staphylococcus bacteremia #Possible UTI -continue vancomycin and meropenem -ID eval following -monitor daily labs -Supportive care -Fall precautions -Aspiration precautions #Sacral pressure ulcers,present on admission -seen by Dr. Raza -wound care recs appreciated #Hyponatremia-present on admission, now resolved -continue to monitor BMP VTE PPx Heparin SC I spent 45 minutes on this patient's case, and 26 minutes was dedicated to counseling and/or care coordination. Subjective Date patient seen: Apr 19, 2018 Time patient seen: 09:00 ROS Limited/Unobtainable: Yes Allergies: Coded Allergies: No Known Allergies (Unverified , 09/29/17) Subjective Medicine follow up for severe sepsis, acute metabolic encephalopathy Also with dacral pressure ulcers, present on admission Blood cltures growing Staphylococcus Objective Last 24 Hour Vital Signs Date Time Temp Pulse Resp B/P (MAP) Pulse Ox O2 Delivery O2 Flow Rate FiO2 04/19/18 04:00 98.6 82 18 125/73 (90) 97 04/19/18 01:00 Nasal Cannula 2.0 04/19/18 00:00 98.0 78 18 117/61 (79) 96 04/18/18 20:00 97.8 80 18 120/65 (83) 100 04/18/18 16:00 97.3 75 20 112/71 (85) 100 04/18/18 13:22 97.8 87 20 121/71 (88) 100 04/18/18 12:00 97.6 81 17 123/77 (92) 100 Intake and Output 04/18/18 04/19/18 19:00 07:00 Intake Total 2245.000 ml 1090 ml Output Total 2700 ml 651 ml Balance -455.000 ml 439 ml Intake Free Water 120 ml 250 ml IV Total 1285.000 ml Tube Feeding 840 ml 840 ml Output Urine Total 2700 ml 650 ml Stool Total 1 ml # Bowel Movements 1 Laboratory Tests 04/19/18 06:30: White Blood Count 6.7, Red Blood Count 3.51L, Hemoglobin 8.9L, Hematocrit 28.8L , Mean Corpuscular Volume 82, Mean Corpuscular Hemoglobin 25.5L, Mean Corpuscular Hemoglobin Concent 31.0L, Red Cell Distribution Width 16.9H, Platelet Count 469H, Mean Platelet Volume 6.2L, Neutrophils (%) (Auto) 60.3, Lymphocytes (%) (Auto) 28.5, Monocytes (%) (Auto) 5.4, Eosinophils (%) (Auto) 4.4H, Basophils (%) (Auto) 1.4, Sodium Level 138, Potassium Level 4.0, Chloride Level 104, Carbon Dioxide Level 31, Anion Gap 3L, Blood Urea Nitrogen 6L, Creatinine 0.5L, Estimat Glomerular Filtration Rate > 60, Glucose Level 145H, Calcium Level 7.7L, Total Bilirubin 0.2, Aspartate Amino Transf (AST/SGOT) 29, Alanine Aminotransferase (ALT/SGPT) 12, Alkaline Phosphatase 98, Total Protein 6.4, Albumin 1.3L, Globulin 5.1, Albumin/Globulin Ratio 0.3L Height (Feet): 5 Height (Inches): 11.00 Weight (Pounds): 174 General Appearance: alert, confused Neck: normal alignment, supple Cardiovascular: normal peripheral pulses, normal rate, regular rhythm Respiratory/Chest: chest wall non-tender, lungs clear, normal breath sounds Abdomen: soft Reginald Pulido MD Apr 19, 2018 09:16
[2018-04-19] MEDS: Vancomycin 1 GM in D5W 275 ML IVPB SCH ×2 (09:31→17:22)
[2018-04-19 12:00] VITALS: BP 121/76
--- NOTE | 2018-04-19 14:49 | Diagnostic Imaging Report ---
Indication: Dyspnea Comparison: 04/17/2018 A single view chest radiograph was obtained. Findings: Interstitial vascular prominence, cardiomegaly demonstrated. There is mild left basal atelectasis versus pneumonia. Findings appear relatively stable. IMPRESSION: Mild interstitial edema/CHF. Left basal parenchymal disease. Correlate for pneumonia
[2018-04-19 16:00] VITALS: BP 118/70
--- NOTE | 2018-04-19 16:18 | Surgery Progress Note ---
Surgery Progress Note Objective Last 24 Hour Vital Signs Date Time Temp Pulse Resp B/P (MAP) Pulse Ox O2 Delivery O2 Flow Rate FiO2 04/19/18 16:00 97.1 69 17 118/70 (86) 97 04/19/18 12:00 98.1 79 18 121/76 (91) 97 04/19/18 09:43 Nasal Cannula 2.0 04/19/18 08:00 97.2 82 18 119/75 (90) 97 04/19/18 04:00 98.6 82 18 125/73 (90) 97 04/19/18 01:00 Nasal Cannula 2.0 04/19/18 00:00 98.0 78 18 117/61 (79) 96 04/18/18 20:00 97.8 80 18 120/65 (83) 100 I&O Intake and Output 04/18/18 04/19/18 18:59 06:59 Intake Total 2215.000 ml 1120 ml Output Total 2700 ml 651 ml Balance -485.000 ml 469 ml Intake Free Water 90 ml 280 ml IV Total 1285.000 ml Tube Feeding 840 ml 840 ml Output Urine Total 2700 ml 650 ml Stool Total 1 ml # Bowel Movements 1 Laboratory Tests Test 04/19/18 06:30 04/19/18 15:20 White Blood Count 6.7 K/UL (4.8-10.8) Red Blood Count 3.51 M/UL (4.70-6.10) L Hemoglobin 8.9 G/DL (14.2-18.0) L Hematocrit 28.8 % (42.0-52.0) L Mean Corpuscular Volume 82 FL (80-99) Mean Corpuscular Hemoglobin 25.5 PG (27.0-31.0) L Mean Corpuscular Hemoglobin Concent 31.0 G/DL (32.0-36.0) L Red Cell Distribution Width 16.9 % (11.6-14.8) H Platelet Count 469 K/UL (150-450) H Mean Platelet Volume 6.2 FL (6.5-10.1) L Neutrophils (%) (Auto) 60.3 % (45.0-75.0) Lymphocytes (%) (Auto) 28.5 % (20.0-45.0) Monocytes (%) (Auto) 5.4 % (1.0-10.0) Eosinophils (%) (Auto) 4.4 % (0.0-3.0) H Basophils (%) (Auto) 1.4 % (0.0-2.0) Sodium Level 138 MMOL/L (136-145) Potassium Level 4.0 MMOL/L (3.5-5.1) Chloride Level 104 MMOL/L (98-107) Carbon Dioxide Level 31 MMOL/L (21-32) Anion Gap 3 mmol/L (5-15) L Blood Urea Nitrogen 6 mg/dL (7-18) L Creatinine 0.5 MG/DL (0.55-1.30) L Estimat Glomerular Filtration Rate > 60 mL/min (>60) Glucose Level 145 MG/DL (74-106) H Calcium Level 7.7 MG/DL (8.5-10.1) L Total Bilirubin 0.2 MG/DL (0.2-1.0) Aspartate Amino Transf (AST/SGOT) 29 U/L (15-37) Alanine Aminotransferase (ALT/SGPT) 12 U/L (12-78) Alkaline Phosphatase 98 U/L (46-116) Total Protein 6.4 G/DL (6.4-8.2) Albumin 1.3 G/DL (3.4-5.0) L Globulin 5.1 g/dL Albumin/Globulin Ratio 0.3 (1.0-2.7) L Vancomycin Level Trough 19.6 ug/mL (5.0-12.0) H Plan Problems: (1) Sacral decubitus ulcer Assessment & Plan: Pt presents with multiple pressure injuries present on admission. Full thickness pressure injury R trochanter with 60% slough with surrounding pink granulation(L)3.8cm x (W)3.5cm.Periwound clean and intact. Full thickness pressure injury to sacrum .Bone is visible at base of wound .Wound bed otherwise beefy red with tunneling and undermining .Small amt sanguineous exudate noted .(L)10.5cm x (W)9cm x (D)4.1cm ,undermining 7 -4 by 5.8cm @9o'clock,Tunneling at 7o'clock by 7.7cm. Periwound indurated with non- blanchable erythema,with additional scattered partial thickness ulcers noted. # 3 partial thickness wounds distal/lateral R tibia. Wounds are dry without erythema or elevation in skin temp. DTPI lateral R malleolus ,wound is maroon and fluctuant (L)1.1cm x (W)1.2cm. DTPI lateral R heel .Wound is fluctuant with brownish discoloration and marginal erythema (L)2.5cm x (W)1.5cm. Partial thickness wound distal L tibia.wound bed moist and viable. Edges adherent and flat. Periwound is clean and intact (L)1.5cm x (W)1cm. DTPI noted to L lateral Malleolus.Wound is maroon in color and indurated (L) 1.5cm x (W)1.2cm.Periwound is marquez pink. DTPI lateral L malleolus.An indurated area that is maroon in colour with surrounding pink granulation. Periwound is fluctuant without erythema. (L)4cm x (W)3.8cm. Tx.Plan: Cleanse Sacral wound with Saline.Loosely pack with Hydrogel Impregnated Kerlix ( Attn.To tunneling at 7o'clock).Apply Triad Paste periwound.Cover with ABD pad and secure with Tegaderm drsg .Change daily and prn. Apply Triad paste to wound R trochanter.Cover with Optifoam drsg .Change Daily and prn. Apply Cavilon to wounds lateral R lower ext and cover with Optifoam drsg .Change every 3 days and prn. Apply Cavilon Skin Barrier to Lateral L malleolus and L heel .Cover with Optifoam drsg .Change every 7 days andprn. Apply Cavilon Skin Barrier to Wound L lower ext .Cover with Optifoam drsg .Change every 7 days and prn. Apply Cavilon Skin Barrier to L lateral Malleolus and L heel .Cover with Optifoam drsg .Change every 7 days and prn. Air Fluidized mattress. Reposition at least every 2 hours or as tolerated. Off-load heels with pillow. (2) Sepsis Assessment & Plan: leukocytosis resolving. labs noted. orders placed (3) Fever ItalovaughnTonio Apr 19, 2018 16:18
[2018-04-19 20:00] VITALS: BP 109/65
[2018-04-19] MEDS ORDERED: Tubing IV Secondary IV ONE (20:01)
[2018-04-19] MEDS ORDERED: Sterile Water For Irrig 2000ml IRRIG ONE (20:01)
[2018-04-19] MEDS: Sennosides 8.6mg tab GT SCH (21:04)
--- NOTE | 2018-04-19 21:45 | Diagnostic Imaging Report ---
APPROVED REPORT CPT Code: 16810 Present Symptoms Comments: BILATERAL LEGS PAIN. BILATERAL: Imaging reveals a patent deep venous system bilaterally. There is no evidence of thrombus within the femoral, popliteal or tibial segments. The greater saphenous veins are also within normal limits. Doppler indicates normal spontaneous flow within these segments.
[2018-04-20] VITALS: BP 101/57
[2018-04-20] MEDS: Meropenem 1 GM in NS 55 ML IVPB SCH ×3 (00:24→16:57)
[2018-04-20] MEDS: NovoLOG Insulin Flexpen SUBQ SCH ×4 (00:33→18:06)
[2018-04-20] MEDS: Vancomycin 1 GM in D5W 275 ML IVPB SCH ×3 (02:32→17:55)
[2018-04-20 04:00] VITALS: BP 107/52
[2018-04-20 08:00] VITALS: BP 137/81
[2018-04-20] MEDS: Fleet's Enema 133ml RECTAL SCH (09:00)
[2018-04-20] MEDS: Heparin 5000 units/ml inj SUBQ SCH ×2 (09:00→20:38)
[2018-04-20] MEDS: Docusate 100mg/10ml Liq GT SCH (09:15)
[2018-04-20] MEDS: Midodrine 10mg tab GT SCH ×3 (09:15→17:54)
[2018-04-20] MEDS: Milk of Magnesia 30ml Ud GT SCH (09:15)
[2018-04-20] MEDS: Zinc Sulfate 220mg cap GT SCH (09:15)
[2018-04-20 12:00] VITALS: BP 135/80
--- NOTE | 2018-04-20 15:52 | General Progress Note ---
Assessment/Plan Assessment/Plan #Acute metabolic encephalopathy #Severe Sepsis #Staphylococcus hominis bacteremia (?contaminant) #Possible UTI -continue vancomycin and meropenem -ID follow up -monitor daily labs -Supportive care -Fall precautions -Aspiration precautions #Sacral pressure ulcers,present on admission -seen by Dr. Raza -wound care recs appreciated #Hyponatremia-present on admission, now resolved -continue to monitor BMP VTE PPx Heparin SC Subjective Date patient seen: Apr 20, 2018 Time patient seen: 08:55 ROS Limited/Unobtainable: Yes Allergies: Coded Allergies: No Known Allergies (Unverified , 09/29/17) Subjective Medicine follow up for severe sepsis, acute metabolic encephalopathy Also with sacral pressure ulcers, present on admission Blood cultures growing Staphylococcus hominis Objective Last 24 Hour Vital Signs Date Time Temp Pulse Resp B/P (MAP) Pulse Ox O2 Delivery O2 Flow Rate FiO2 04/20/18 12:00 97.7 84 17 135/80 (98) 100 04/20/18 09:00 Nasal Cannula 2.0 04/20/18 08:00 97.1 92 18 137/81 (99) 100 04/20/18 04:00 97.2 78 20 107/52 (70) 95 04/20/18 00:00 98.1 93 18 101/57 (72) 100 04/19/18 21:00 Nasal Cannula 2.0 04/19/18 20:00 97.2 82 20 109/65 (80) 100 04/19/18 16:00 97.1 69 17 118/70 (86) 97 Intake and Output 04/19/18 04/20/18 19:00 07:00 Intake Total 1938.708 ml 1280.000 ml Output Total 1400 ml Balance 1938.708 ml -120.000 ml Intake Free Water 100 ml IV Total 1138.708 ml 930.000 ml Tube Feeding 700 ml 350 ml Output Urine Total 1400 ml Height (Feet): 5 Height (Inches): 11.00 Weight (Pounds): 174 General Appearance: no apparent distress, alert Neck: normal alignment, supple Cardiovascular: normal rate, regular rhythm Respiratory/Chest: lungs clear, normal breath sounds Abdomen: non tender Reginald Pulido MD Apr 20, 2018 15:52
[2018-04-20 16:00] VITALS: BP 128/76
--- NOTE | 2018-04-20 16:43 | Infectious Diseases Prog Note ---
Assessment/Plan Assessment/Plan ASSESSMENT AND PLAN: 1. sepsis, sirs, ? uti, ? 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 The patient has a history of CVA. 3. Dysphagia. 4. Aspiration risk. 5. Diabetes. 6. Hypertension. 7. Anemia. 8. Diabetes and hypertension treatment per primary. 9. Dyslipidemia. 10. Decubitus wound looks fairly clean at sacral area, followed by Surgery. Continue wound care per Surgery and protocol. 11. Altered mental status, sepsis, fevers, leukocytosis. 12. Allergies are negative. 13. Family history noncontributory. 14. MAR was noted. 15. Case was discussed with RN. 16. Social history is negative. 17. mrsa and vre colonization Subjective Constitutional: Denies: fever HEENT: Denies: congestion Respiratory: Denies: shortness of breath Cardiovascular: Denies: chest pain Gastrointestinal/Abdominal: Denies: nausea, vomiting, diarrhea Genitourinary: Reports: other - + parks Neurologic: Denies: headache Psychiatric: Reports: other - na Skin: Denies: rash Hematologic: Denies: bleeding Musculoskeletal: Denies: pain Allergies: Coded Allergies: No Known Allergies (Unverified , 09/29/17) Objective Vital Signs Last 24 Hour Vital Signs Date Time Temp Pulse Resp B/P (MAP) Pulse Ox O2 Delivery O2 Flow Rate FiO2 04/20/18 12:00 97.7 84 17 135/80 (98) 100 04/20/18 09:00 Nasal Cannula 2.0 04/20/18 08:00 97.1 92 18 137/81 (99) 100 04/20/18 04:00 97.2 78 20 107/52 (70) 95 04/20/18 00:00 98.1 93 18 101/57 (72) 100 04/19/18 21:00 Nasal Cannula 2.0 04/19/18 20:00 97.2 82 20 109/65 (80) 100 Height (Feet): 5 Height (Inches): 11.00 Weight (Pounds): 174 General Appearance: no acute distress HEENT: normocephalic, atraumatic, anicteric Respiratory/Chest: crackles/rales, rhonchi - bilaterally Cardiovascular: normal rate, regular rhythm, no gallop/murmur, no JVD Abdomen: normal bowel sounds, soft, non tender, no organomegaly, non distended Genitourinary: other - + parks Extremities: no cyanosis Skin: no rash 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 Unchanged prominent interstitial markings. Pleural space: Unremarkable. The costophrenic angles are sharp. No visible pneumothorax. Heart: Unremarkable. No cardiomegaly. Mediastinum: Unremarkable. Bones/joints: Unremarkable. Tubes, lines and devices: EKG leads overlie the thorax. IMPRESSION: Sub-segmental atelectasis versus infiltrate in the medial left lung base, unchanged. Findings: Chest x-ray - 04/19/18 - Interstitial vascular prominence, cardiomegaly demonstrated. There is mild left basal atelectasis versus pneumonia. Findings appear relatively stable. IMPRESSION: Mild interstitial edema/CHF. Left basal parenchymal disease. Correlate for pneumonia Microbiology Date/Time Source Procedure Growth Status 04/15/18 15:30 Blood Blood Culture - Preliminary NO GROWTH AFTER 4 DAYS Resulted 04/19/18 13:20 Sputum Induced Gram Stain - Final Resulted 04/19/18 13:20 Sputum Induced Sputum Culture Pending Resulted 04/15/18 04:43 Urine,Clean Catch Urine Culture - Final NO GROWTH AFTER 48 HOURS Complete 04/15/18 03:00 Rectum - Final NO CARBAPENEM-RESISTANT ENTEROBACTERI... Complete Microbiology Date/Time Source Procedure Growth Status 04/19/18 13:20 Sputum Induced Gram Stain - Final Resulted 04/19/18 13:20 Sputum Induced Sputum Culture Pending Resulted Labs Test 04/19/18 06:30 04/19/18 15:20 White Blood Count 6.7 K/UL (4.8-10.8) Red Blood Count 3.51 M/UL (4.70-6.10) Hemoglobin 8.9 G/DL (14.2-18.0) Hematocrit 28.8 % (42.0-52.0) Mean Corpuscular Volume 82 FL (80-99) Mean Corpuscular Hemoglobin 25.5 PG (27.0-31.0) Mean Corpuscular Hemoglobin Concent 31.0 G/DL (32.0-36.0) Red Cell Distribution Width 16.9 % (11.6-14.8) Platelet Count 469 K/UL (150-450) Mean Platelet Volume 6.2 FL (6.5-10.1) Neutrophils (%) (Auto) 60.3 % (45.0-75.0) Lymphocytes (%) (Auto) 28.5 % (20.0-45.0) Monocytes (%) (Auto) 5.4 % (1.0-10.0) Eosinophils (%) (Auto) 4.4 % (0.0-3.0) Basophils (%) (Auto) 1.4 % (0.0-2.0) Sodium Level 138 MMOL/L (136-145) Potassium Level 4.0 MMOL/L (3.5-5.1) Chloride Level 104 MMOL/L (98-107) Carbon Dioxide Level 31 MMOL/L (21-32) Anion Gap 3 mmol/L (5-15) Blood Urea Nitrogen 6 mg/dL (7-18) Creatinine 0.5 MG/DL (0.55-1.30) Estimat Glomerular Filtration Rate > 60 mL/min (>60) Glucose Level 145 MG/DL (74-106) Calcium Level 7.7 MG/DL (8.5-10.1) Total Bilirubin 0.2 MG/DL (0.2-1.0) Aspartate Amino Transf (AST/SGOT) 29 U/L (15-37) Alanine Aminotransferase (ALT/SGPT) 12 U/L (12-78) Alkaline Phosphatase 98 U/L (46-116) Total Protein 6.4 G/DL (6.4-8.2) Albumin 1.3 G/DL (3.4-5.0) Globulin 5.1 g/dL Albumin/Globulin Ratio 0.3 (1.0-2.7) Vancomycin Level Trough 19.6 ug/mL (5.0-12.0) Current Medications Medications (Trade) Dose Ordered Sig/Patience Route PRN Reason Start Time Stop Time Status Last Admin Dose Admin Acetaminophen (Tylenol) 650 mg Q6H PRN GT Prn Pain/Headache/Temp > 101 04/17/18 23:15 3/16/19 17:08 Dextrose (Dextrose 50%) 25 ml Q30M PRN IV Hypoglycemia 04/17/18 22:30 05/16/18 07:59 Dextrose (Dextrose 50%) 50 ml Q30M PRN IV Hypoglycemia 04/17/18 22:30 05/16/18 07:59 Docusate Sodium (Colace) 100 mg DAILY GT 04/18/18 09:00 05/15/18 08:59 04/20/18 09:15 Heparin Sodium (Porcine) (Heparin 5000 units/ml) 5,000 units EVERY 12 HOURS SUBQ 04/18/18 09:00 05/16/18 09:14 04/20/18 09:00 Insulin Aspart (NovoLOG) EVERY 6 HOURS SUBQ 04/18/18 00:00 05/16/18 11:29 04/20/18 12:17 Lansoprazole (Prevacid) 30 mg DAILY GT 04/18/18 09:00 05/16/18 08:59 04/20/18 09:15 Magnesium Hydroxide (Mom) 30 ml DAILY GT 04/18/18 09:00 05/15/18 08:59 04/20/18 09:15 Meropenem 1 gm/ Sodium Chloride 55 ml @ 110 mls/hr Q8H IVPB 04/18/18 16:00 04/23/18 15:59 04/20/18 09:17 Midodrine (Pro-Amatine) 10 mg THREE TIMES A DAY GT 04/18/18 09:00 05/15/18 08:59 04/20/18 12:48 Sennosides (Senokot) 8.6 mg BEDTIME GT 04/18/18 21:00 05/15/18 20:59 04/19/18 21:04 Sodium Chloride 1,000 ml @ 150 mls/hr Q6H40M IV 04/17/18 22:15 05/15/18 13:59 04/20/18 10:15 Sodium Phosphate (Fleet's Sodium Phosl Enema) 133 ml DAILY RECTAL 04/18/18 09:00 05/15/18 08:59 Vancomycin HCl (Vanco rx to dose) 1 ea DAILY PRN MISC Per rx protocol 04/18/18 16:45 05/15/18 21:59 Vancomycin HCl 1 gm/Dextrose 275 ml @ 183.708 mls/hr Q8HR@0200,1000,1800 IVPB 04/19/18 18:00 04/24/18 17:59 04/20/18 09:58 Zinc Sulfate (Zinc Sulfate) 220 mg DAILY GT 04/18/18 09:00 05/15/18 08:59 04/20/18 09:15 Gwendolyn Marquez MD Apr 20, 2018 16:43
--- NOTE | 2018-04-20 18:38 | Surgery Progress Note ---
Surgery Progress Note Subjective Additional Comments no acute events. stable. improving Objective Last 24 Hour Vital Signs Date Time Temp Pulse Resp B/P (MAP) Pulse Ox O2 Delivery O2 Flow Rate FiO2 04/20/18 16:00 97.6 74 18 128/76 (93) 100 04/20/18 12:00 97.7 84 17 135/80 (98) 100 04/20/18 09:00 Nasal Cannula 2.0 04/20/18 08:00 97.1 92 18 137/81 (99) 100 04/20/18 04:00 97.2 78 20 107/52 (70) 95 04/20/18 00:00 98.1 93 18 101/57 (72) 100 04/19/18 21:00 Nasal Cannula 2.0 04/19/18 20:00 97.2 82 20 109/65 (80) 100 I&O Intake and Output 04/19/18 04/20/18 19:00 07:00 Intake Total 1938.708 ml 1280.000 ml Output Total 1400 ml Balance 1938.708 ml -120.000 ml Intake Free Water 100 ml IV Total 1138.708 ml 930.000 ml Tube Feeding 700 ml 350 ml Output Urine Total 1400 ml Dressing: other Wound: other Drains: other Cardiovascular: RSR Respiratory: clear Abdomen: soft, non-tender, present bowel sounds, non-distended Extremities: other Plan Problems: (1) Sacral decubitus ulcer Assessment & Plan: Pt presents with multiple pressure injuries present on admission. Full thickness pressure injury R trochanter with 60% slough with surrounding pink granulation(L)3.8cm x (W)3.5cm.Periwound clean and intact. Full thickness pressure injury to sacrum .Bone is visible at base of wound .Wound bed otherwise beefy red with tunneling and undermining .Small amt sanguineous exudate noted .(L)10.5cm x (W)9cm x (D)4.1cm ,undermining 7 -4 by 5.8cm @9o'clock,Tunneling at 7o'clock by 7.7cm. Periwound indurated with non- blanchable erythema,with additional scattered partial thickness ulcers noted. # 3 partial thickness wounds distal/lateral R tibia. Wounds are dry without erythema or elevation in skin temp. DTPI lateral R malleolus ,wound is maroon and fluctuant (L)1.1cm x (W)1.2cm. DTPI lateral R heel .Wound is fluctuant with brownish discoloration and marginal erythema (L)2.5cm x (W)1.5cm. Partial thickness wound distal L tibia.wound bed moist and viable. Edges adherent and flat. Periwound is clean and intact (L)1.5cm x (W)1cm. DTPI noted to L lateral Malleolus.Wound is maroon in color and indurated (L) 1.5cm x (W)1.2cm.Periwound is marquez pink. DTPI lateral L malleolus.An indurated area that is maroon in colour with surrounding pink granulation. Periwound is fluctuant without erythema. (L)4cm x (W)3.8cm. Tx.Plan: Cleanse Sacral wound with Saline.Loosely pack with Hydrogel Impregnated Kerlix ( Attn.To tunneling at 7o'clock).Apply Triad Paste periwound.Cover with ABD pad and secure with Tegaderm drsg .Change daily and prn. Apply Triad paste to wound R trochanter.Cover with Optifoam drsg .Change Daily and prn. Apply Cavilon to wounds lateral R lower ext and cover with Optifoam drsg .Change every 3 days and prn. Apply Cavilon Skin Barrier to Lateral L malleolus and L heel .Cover with Optifoam drsg .Change every 7 days andprn. Apply Cavilon Skin Barrier to Wound L lower ext .Cover with Optifoam drsg .Change every 7 days and prn. Apply Cavilon Skin Barrier to L lateral Malleolus and L heel .Cover with Optifoam drsg .Change every 7 days and prn. Air Fluidized mattress. Reposition at least every 2 hours or as tolerated. Off-load heels with pillow. (2) Sepsis Assessment & Plan: leukocytosis resolving. labs noted. orders placed (3) Fever RauldejuanbsaimTonio Apr 20, 2018 18:38
[2018-04-20 20:00] VITALS: BP 124/75
[2018-04-20] MEDS: Sennosides 8.6mg tab GT SCH (20:37)
[2018-04-21] VITALS: BP 108/63
[2018-04-21] MEDS: NovoLOG Insulin Flexpen SUBQ SCH ×4 (00:48→18:20)
[2018-04-21] MEDS: Meropenem 1 GM in NS 55 ML IVPB SCH ×3 (00:54→18:17)
[2018-04-21] MEDS: Vancomycin 1 GM in D5W 275 ML IVPB SCH ×3 (02:07→18:17)
[2018-04-21 04:00] VITALS: BP 117/63
[2018-04-21 07:34] LABS: ANION GAP 2 mmol/L (5-15); BLOOD UREA NITROGEN 7 mg/dL (7-18); CALCIUM 7.6 MG/DL (8.5-10.1); CARBON DIOXIDE 32 MMOL/L (21-32); CHLORIDE 101 MMOL/L (98-107); CREATININE 0.4 MG/DL (0.55-1.30); POTASSIUM 4.1 MMOL/L (3.5-5.1); SODIUM 135 MMOL/L (136-145)
[2018-04-21 07:44] LABS: EOSINOPHILS % (AUTO) 3.4 % (0.0-3.0); HEMATOCRIT 25.9 % (42.0-52.0); HEMOGLOBIN 8.3 G/DL (14.2-18.0); LYMPHOCYTES % (AUTO) 24.4 % (20.0-45.0); MEAN CORPUSCULAR VOLUME 81 FL (80-99); MONOCYTES % (AUTO) 3.2 % (1.0-10.0); NEUTROPHILS % (AUTO) 68.1 % (45.0-75.0); PLATELET COUNT 505 K/UL (150-450); RED CELL DISTRIBUTION WIDTH 17.8 % (11.6-14.8); WHITE BLOOD COUNT 8.5 K/UL (4.8-10.8)
[2018-04-21 08:00] VITALS: BP 123/74
[2018-04-21] MEDS: Zinc Sulfate 220mg cap GT SCH (09:03)
[2018-04-21] MEDS: Milk of Magnesia 30ml Ud GT SCH (09:03)
[2018-04-21] MEDS: Docusate 100mg/10ml Liq GT SCH (09:03)
[2018-04-21] MEDS: Midodrine 10mg tab GT SCH ×3 (09:03→18:19)
[2018-04-21] MEDS: Fleet's Enema 133ml RECTAL SCH (09:04)
[2018-04-21] MEDS: Heparin 5000 units/ml inj SUBQ SCH ×2 (09:13→21:42)
--- NOTE | 2018-04-21 11:53 | General Progress Note ---
Assessment/Plan Assessment/Plan #Acute metabolic encephalopathy #Severe Sepsis #Staphylococcus hominis bacteremia (?contaminant) #Possible UTI vs aspiration PNA -continue vancomycin and meropenem -await sputum culture -ID following -monitor daily labs -Supportive care -Fall precautions -Aspiration precautions #Sacral pressure ulcers,present on admission -seen by Dr. Raza -wound care recs appreciated #Hyponatremia-present on admission, now resolved -continue to monitor BMP VTE PPx Heparin SC Subjective Date patient seen: Apr 21, 2018 Time patient seen: 09:45 ROS Limited/Unobtainable: Yes Allergies: Coded Allergies: No Known Allergies (Unverified , 09/29/17) Subjective Medicine follow up for severe sepsis, acute metabolic encephalopathy Also with sacral pressure ulcers, present on admission Blood cultures growing Staphylococcus hominis thought to be contaminant Objective Last 24 Hour Vital Signs Date Time Temp Pulse Resp B/P (MAP) Pulse Ox O2 Delivery O2 Flow Rate FiO2 04/21/18 09:00 Nasal Cannula 2.0 04/21/18 08:00 97.3 84 20 123/74 (90) 100 04/21/18 04:00 98.0 95 18 117/63 (81) 98 04/21/18 00:00 98.3 75 20 108/63 (78) 100 04/20/18 21:00 Nasal Cannula 2.0 04/20/18 20:00 97.7 77 16 124/75 (91) 100 04/20/18 16:00 97.6 74 18 128/76 (93) 100 04/20/18 12:00 97.7 84 17 135/80 (98) 100 Intake and Output 04/20/18 04/21/18 19:00 07:00 Intake Total 990 ml 2270.000 ml Output Total 1800 ml Balance 990 ml 470.000 ml Intake Free Water 120 ml IV Total 150 ml 1380.000 ml Tube Feeding 840 ml 770 ml Output Urine Total 1800 ml Laboratory Tests 04/21/18 05:50: White Blood Count 8.5, Red Blood Count 3.20L, Hemoglobin 8.3L, Hematocrit 25.9L , Mean Corpuscular Volume 81, Mean Corpuscular Hemoglobin 25.8L, Mean Corpuscular Hemoglobin Concent 31.9L, Red Cell Distribution Width 17.8H, Platelet Count 505H, Mean Platelet Volume 6.4L, Neutrophils (%) (Auto) 68.1, Lymphocytes (%) (Auto) 24.4, Monocytes (%) (Auto) 3.2, Eosinophils (%) (Auto) 3.4H, Basophils (%) (Auto) 1.0, Sodium Level 135L, Potassium Level 4.1, Chloride Level 101, Carbon Dioxide Level 32, Anion Gap 2L, Blood Urea Nitrogen 7 , Creatinine 0.4L, Estimat Glomerular Filtration Rate > 60, Glucose Level 142H, Calcium Level 7.6L Height (Feet): 5 Height (Inches): 11.00 Weight (Pounds): 229 General Appearance: alert Cardiovascular: normal peripheral pulses, normal rate Respiratory/Chest: chest wall non-tender, lungs clear, normal breath sounds, no respiratory distress Abdomen: non tender, soft Reginald Pulido MD Apr 21, 2018 11:53
[2018-04-21 12:00] VITALS: BP 144/75
[2018-04-21 16:00] VITALS: BP 131/77
[2018-04-21 20:00] VITALS: BP 108/66
[2018-04-21] MEDS: Sennosides 8.6mg tab GT SCH (21:39)
[2018-04-22] VITALS: BP 112/71
[2018-04-22] MEDS: Meropenem 1 GM in NS 55 ML IVPB SCH ×2 (00:35→08:00)
[2018-04-22] MEDS: NovoLOG Insulin Flexpen SUBQ SCH ×3 (00:38→12:00)
[2018-04-22] MEDS: Vancomycin 1 GM in D5W 275 ML IVPB SCH ×2 (02:03→09:28)
[2018-04-22 04:30] VITALS: BP 118/72
[2018-04-22 08:00] VITALS: BP 136/76
[2018-04-22] MEDS: Fleet's Enema 133ml RECTAL SCH (09:00)
[2018-04-22] MEDS: Milk of Magnesia 30ml Ud GT SCH (09:27)
[2018-04-22] MEDS: Docusate 100mg/10ml Liq GT SCH (09:27)
[2018-04-22] MEDS: Heparin 5000 units/ml inj SUBQ SCH (09:27)
[2018-04-22] MEDS: Midodrine 10mg tab GT SCH ×2 (09:27→11:59)
[2018-04-22] MEDS: Zinc Sulfate 220mg cap GT SCH (09:27)
--- NOTE | 2018-04-22 10:31 | Diagnostic Imaging Report ---
Indication: Shortness of breath Technique: One view of the chest Comparison: 04/19/2018 Findings: The heart is enlarged. Mild interstitial congestive changes are stable. There may be some pleural fluid on the left. Findings are overall unchanged Impression: Unchanged, over 2 days, findings as above.
[2018-04-22 12:00] VITALS: BP 127/69
--- NOTE | 2018-04-22 13:02 | Surgery Progress Note ---
Surgery Progress Note Subjective Additional Comments wound VAC placed to wound. holding well. Objective Last 24 Hour Vital Signs Date Time Temp Pulse Resp B/P (MAP) Pulse Ox O2 Delivery O2 Flow Rate FiO2 04/22/18 12:00 97.8 74 20 127/69 (88) 100 04/22/18 09:00 Nasal Cannula 2.0 04/22/18 08:00 97.5 90 20 136/76 (96) 97 04/22/18 04:30 97.0 69 18 118/72 (87) 100 04/22/18 00:00 98.2 79 18 112/71 (85) 100 04/21/18 21:00 Nasal Cannula 2.0 04/21/18 20:04 Nasal Cannula 2.0 28 04/21/18 20:04 99 Nasal Cannula 2.0 28 04/21/18 20:00 97.6 83 20 108/66 (80) 100 04/21/18 18:49 98.0 04/21/18 16:00 98.0 86 19 131/77 (95) 96 I&O Intake and Output 04/21/18 04/22/18 19:00 07:00 Intake Total 500 ml 2450.000 ml Output Total 2250 ml 2900 ml Balance -1750 ml -450.000 ml Intake Free Water 360 ml 120 ml IV Total 1560.000 ml Tube Feeding 140 ml 770 ml Output Urine Total 2250 ml 2900 ml # Bowel Movements 1 Dressing: dry Wound: clean Drains: wound vac Cardiovascular: other Respiratory: other Abdomen: soft, non-distended Extremities: other Plan Problems: (1) Sacral decubitus ulcer Assessment & Plan: Pt presents with multiple pressure injuries present on admission. Full thickness pressure injury R trochanter with 60% slough with surrounding pink granulation(L)3.8cm x (W)3.5cm.Periwound clean and intact. Full thickness pressure injury to sacrum .Bone is visible at base of wound .Wound bed otherwise beefy red with tunneling and undermining .Small amt sanguineous exudate noted .(L)10.5cm x (W)9cm x (D)4.1cm ,undermining 7 -4 by 5.8cm @9o'clock,Tunneling at 7o'clock by 7.7cm. Periwound indurated with non- blanchable erythema,with additional scattered partial thickness ulcers noted. # 3 partial thickness wounds distal/lateral R tibia. Wounds are dry without erythema or elevation in skin temp. DTPI lateral R malleolus ,wound is maroon and fluctuant (L)1.1cm x (W)1.2cm. DTPI lateral R heel .Wound is fluctuant with brownish discoloration and marginal erythema (L)2.5cm x (W)1.5cm. Partial thickness wound distal L tibia.wound bed moist and viable. Edges adherent and flat. Periwound is clean and intact (L)1.5cm x (W)1cm. DTPI noted to L lateral Malleolus.Wound is maroon in color and indurated (L) 1.5cm x (W)1.2cm.Periwound is marquez pink. DTPI lateral L malleolus.An indurated area that is maroon in colour with surrounding pink granulation. Periwound is fluctuant without erythema. (L)4cm x (W)3.8cm. Tx.Plan: Wound VAC to sacral wound Apply Triad paste to wound R trochanter.Cover with Optifoam drsg .Change Daily and prn. Apply Cavilon to wounds lateral R lower ext and cover with Optifoam drsg .Change every 3 days and prn. Apply Cavilon Skin Barrier to Lateral L malleolus and L heel .Cover with Optifoam drsg .Change every 7 days andprn. Apply Cavilon Skin Barrier to Wound L lower ext .Cover with Optifoam drsg .Change every 7 days and prn. Apply Cavilon Skin Barrier to L lateral Malleolus and L heel .Cover with Optifoam drsg .Change every 7 days and prn. Air Fluidized mattress. Reposition at least every 2 hours or as tolerated. Off-load heels with pillow. (2) Sepsis Assessment & Plan: leukocytosis resolving. labs noted. orders placed (3) Fever Tonio Raza Apr 22, 2018 13:02
--- NOTE | 2018-04-22 13:47 | Infectious Diseases Prog Note ---
Assessment/Plan Assessment/Plan ASSESSMENT AND PLAN: 1. sepsis, sirs, ? uti, ? 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 The patient has a history of CVA. 3. Dysphagia. 4. Aspiration risk. 5. Diabetes. 6. Hypertension. 7. Anemia. 8. Diabetes and hypertension treatment per primary. 9. Dyslipidemia. 10. Decubitus wound looks fairly clean at sacral area, followed by Surgery. Continue wound care per Surgery and protocol. 11. Altered mental status, sepsis, fevers, leukocytosis. 12. Allergies are negative. 13. Family history noncontributory. 14. MAR was noted. 15. Case was discussed with RN. 16. Social history is negative. 17. mrsa and vre colonization Subjective Constitutional: Denies: fever HEENT: Denies: congestion Respiratory: Denies: shortness of breath Cardiovascular: Denies: chest pain Gastrointestinal/Abdominal: Denies: nausea, vomiting, diarrhea Genitourinary: Reports: other - no parks Neurologic: Reports: confusion, other - no change in mental status Psychiatric: Reports: other - na Skin: Denies: rash Hematologic: Denies: bleeding Musculoskeletal: Denies: pain Allergies: Coded Allergies: No Known Allergies (Unverified , 09/29/17) Objective Vital Signs Last 24 Hour Vital Signs Date Time Temp Pulse Resp B/P (MAP) Pulse Ox O2 Delivery O2 Flow Rate FiO2 04/22/18 12:00 97.8 74 20 127/69 (88) 100 04/22/18 09:00 Nasal Cannula 2.0 04/22/18 08:00 97.5 90 20 136/76 (96) 97 04/22/18 04:30 97.0 69 18 118/72 (87) 100 04/22/18 00:00 98.2 79 18 112/71 (85) 100 04/21/18 21:00 Nasal Cannula 2.0 04/21/18 20:04 Nasal Cannula 2.0 28 04/21/18 20:04 99 Nasal Cannula 2.0 28 04/21/18 20:00 97.6 83 20 108/66 (80) 100 04/21/18 18:49 98.0 04/21/18 16:00 98.0 86 19 131/77 (95) 96 Height (Feet): 5 Height (Inches): 11.00 Weight (Pounds): 229 General Appearance: no acute distress HEENT: atraumatic, anicteric, mucous membranes moist Respiratory/Chest: crackles/rales, rhonchi - bilaterally Cardiovascular: normal rate, regular rhythm, no gallop/murmur, no JVD Abdomen: normal bowel sounds, soft, non tender, no organomegaly, non distended Genitourinary: other - no parks Extremities: no cyanosis Skin: no rash 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 Unchanged prominent interstitial markings. Pleural space: Unremarkable. The costophrenic angles are sharp. No visible pneumothorax. Heart: Unremarkable. No cardiomegaly. Mediastinum: Unremarkable. Bones/joints: Unremarkable. Tubes, lines and devices: EKG leads overlie the thorax. IMPRESSION: Sub-segmental atelectasis versus infiltrate in the medial left lung base, unchanged. Findings: Chest x-ray - 04/19/18 - Interstitial vascular prominence, cardiomegaly demonstrated. There is mild left basal atelectasis versus pneumonia. Findings appear relatively stable. IMPRESSION: Mild interstitial edema/CHF. Left basal parenchymal disease. Correlate for pneumonia Chest x-ray - 04/22/18: Findings: The heart is enlarged. Mild interstitial congestive changes are stable. There may be some pleural fluid on the left. Findings are overall unchanged Impression: Unchanged, over 2 days, findings as above. Microbiology Date/Time Source Procedure Growth Status 04/15/18 15:30 Blood Blood Culture - Final NO GROWTH AFTER 5 DAYS Complete 04/19/18 13:20 Sputum Induced Gram Stain - Final Complete 04/19/18 13:20 Sputum Culture - Final Staphylococcus Aureus - Mrsa Usual Respiratory Leisa Complete 04/15/18 04:43 Urine,Clean Catch Urine Culture - Final NO GROWTH AFTER 48 HOURS Complete 04/15/18 03:00 Rectum - Final NO CARBAPENEM-RESISTANT ENTEROBACTERI... Complete Labs Test 04/19/18 15:20 04/21/18 05:50 Vancomycin Level Trough 19.6 ug/mL (5.0-12.0) White Blood Count 8.5 K/UL (4.8-10.8) Red Blood Count 3.20 M/UL (4.70-6.10) Hemoglobin 8.3 G/DL (14.2-18.0) Hematocrit 25.9 % (42.0-52.0) Mean Corpuscular Volume 81 FL (80-99) Mean Corpuscular Hemoglobin 25.8 PG (27.0-31.0) Mean Corpuscular Hemoglobin Concent 31.9 G/DL (32.0-36.0) Red Cell Distribution Width 17.8 % (11.6-14.8) Platelet Count 505 K/UL (150-450) Mean Platelet Volume 6.4 FL (6.5-10.1) Neutrophils (%) (Auto) 68.1 % (45.0-75.0) Lymphocytes (%) (Auto) 24.4 % (20.0-45.0) Monocytes (%) (Auto) 3.2 % (1.0-10.0) Eosinophils (%) (Auto) 3.4 % (0.0-3.0) Basophils (%) (Auto) 1.0 % (0.0-2.0) Sodium Level 135 MMOL/L (136-145) Potassium Level 4.1 MMOL/L (3.5-5.1) Chloride Level 101 MMOL/L (98-107) Carbon Dioxide Level 32 MMOL/L (21-32) Anion Gap 2 mmol/L (5-15) Blood Urea Nitrogen 7 mg/dL (7-18) Creatinine 0.4 MG/DL (0.55-1.30) Estimat Glomerular Filtration Rate > 60 mL/min (>60) Glucose Level 142 MG/DL (74-106) Calcium Level 7.6 MG/DL (8.5-10.1) Current Medications Medications (Trade) Dose Ordered Sig/Patience Route PRN Reason Start Time Stop Time Status Last Admin Dose Admin Acetaminophen (Tylenol) 650 mg Q6H PRN GT Prn Pain/Headache/Temp > 101 04/17/18 23:15 05/15/18 17:08 04/21/18 18:19 Dextrose (Dextrose 50%) 25 ml Q30M PRN IV Hypoglycemia 04/17/18 22:30 05/16/18 07:59 Dextrose (Dextrose 50%) 50 ml Q30M PRN IV Hypoglycemia 04/17/18 22:30 05/16/18 07:59 Docusate Sodium (Colace) 100 mg DAILY GT 04/18/18 09:00 05/15/18 08:59 04/22/18 09:27 Heparin Sodium (Porcine) (Heparin 5000 units/ml) 5,000 units EVERY 12 HOURS SUBQ 04/18/18 09:00 05/16/18 09:14 04/22/18 09:27 Insulin Aspart (NovoLOG) EVERY 6 HOURS SUBQ 04/18/18 00:00 05/16/18 11:29 04/22/18 12:00 Lansoprazole (Prevacid) 30 mg DAILY GT 04/18/18 09:00 05/16/18 08:59 04/22/18 09:27 Magnesium Hydroxide (Mom) 30 ml DAILY GT 04/18/18 09:00 05/15/18 08:59 04/22/18 09:27 Meropenem 1 gm/ Sodium Chloride 55 ml @ 110 mls/hr Q8H IVPB 04/18/18 16:00 04/23/18 15:59 04/22/18 08:00 Midodrine (Pro-Amatine) 10 mg THREE TIMES A DAY GT 04/18/18 09:00 05/15/18 08:59 04/22/18 11:59 Sennosides (Senokot) 8.6 mg BEDTIME GT 04/18/18 21:00 05/15/18 20:59 04/21/18 21:39 Sodium Chloride 1,000 ml @ 150 mls/hr Q6H40M IV 04/17/18 22:15 05/15/18 13:59 04/22/18 08:55 Sodium Phosphate (Fleet's Sodium Phosl Enema) 133 ml DAILY RECTAL 04/18/18 09:00 05/15/18 08:59 04/21/18 09:04 Vancomycin HCl (Vanco rx to dose) 1 ea DAILY PRN MISC Per rx protocol 04/18/18 16:45 05/15/18 21:59 Vancomycin HCl 1 gm/Dextrose 275 ml @ 183.708 mls/hr Q8HR@0200,1000,1800 IVPB 04/19/18 18:00 04/24/18 17:59 04/22/18 09:28 Zinc Sulfate (Zinc Sulfate) 220 mg DAILY GT 04/18/18 09:00 05/15/18 08:59 04/22/18 09:27 Gwendolyn Marquez MD Apr 22, 2018 13:47
[2018-04-22] MEDS ORDERED: AUGMENTIN 875-1 EAC1 GT (13:53)
[2018-04-22] MEDS ORDERED: BACTRIM DS TAB1 EAC1 GT (13:57)
--- NOTE | 2018-04-22 14:07 | Discharge Summary ---
Discharge Summary Hospital Course Date of Admission Apr 14, 2018 at 21:43 Date of Discharge Admitting Diagnosis AMS HPI Gerard Aldridge is a 62 year old male who was admitted on Apr 14, 2018 at 21: 43 for Altered Mental Status Hospital Course [facility], admitted to the medical service for severe sepsis and acute metabolic encephalopathy - suspected to be due to MRSA pneumonia. He was treated with broad spectrum antibiotics vancomycin and meropenem along with IV fluids. Seen by ID. Sputum culture grew MRSA and antibiotics adjusted, he will be on Augmentin and Bactrim 2 tab bid for 5 more days. Patient will need to have repeat BMP on Thursday to monitor renal function. Patient was also seen by Surgery for sacral ulcer, present on admission, n evidence of infection, wound vac recommended Vac settings 125 mm Hg, continuous, change Thursday and #Acute metabolic encephalopathy #Severe Sepsis, MRSA pneumonia #Staphylococcus hominis bacteremia, contaminant -transition to oral antibiotic -ID follow up appreciated -repeat CBC and BMP next week -Supportive care -Fall precautions -Aspiration precautions #Sacral pressure ulcers,present on admission -seen by Dr. Raza -wound care recs appreciated, will continue with [facility] vac at [facility] #Hyponatremia-present on admission, now resolved -continue to monitor BMP Time spent in preparing discharge was 35 minutes Discharge Medications New Medications: Amoxicillin/Potassium Clav 875-125* (Augmentin 875-125 Tablet*) 1 Each Tablet 1 TAB GT TWICE A DAY for 5 Days, #10 TAB Trimethoprim/Sulfamethoxazole 160/800* (Bactrim Ds Tablet*) 1 Each Tablet 2 TAB GT Q12H for 5 Days, #20 TAB 0 Refills Continued Medications: Acetaminophen (Tylenol) 325 Mg Tablet 650 MG ORAL Q6H PRN for Prn Pain/Headache/Temp > 101, #30 TAB 0 Refills Bisacodyl (Dulcolax) 10 Mg Supp.rect 10 MG RC, SUPP Docusate Sodium* (Colace*) 100 Mg Capsule 100 MG ORAL DAILY, CAP Ipratropium Blanchard (Ipratropium Blanchard) 15 Ml [place] 15 ML NS, SPRAY Magnesium Hydroxide* (Milk Of Magnesia*) 400 Mg/5 Ml Oral.susp 30 ML ORAL DAILY, ML Midodrine* (Proamatine*) 10 Mg Tablet 10 MG ORAL THREE TIMES A DAY, TAB Na Phos,M-B/Na Phos,Di-Ba* (Fleet Enema*) 133 Ml Enema 133 ML RECTAL DAILY, ML 0 Refills Pantoprazole* (Pantoprazole*) 40 Mg Tablet.dr 40 MG ORAL DAILY, TAB Sennosides (Senna) 8.6 Mg Tablet 8.6 MG PO, TAB Zinc Sulfate (Zinc Sulfate*) 220 Mg Capsule 220 MG ORAL DAILY, CAP 0 Refills Discharge Discharge Disposition Patient was discharged to SNF/Subacute Facility(03) Discharge Diagnoses: (1) Sepsis Reginald Pulido MD Apr 22, 2018 14:07
[2018-04-22] MEDS ORDERED: NS 275ml ONE (15:30)
[2018-04-22] MEDS ORDERED: Bactrim-DS 1 tab ORAL SCH (21:00)
[2018-04-22] MEDS ORDERED: Augmentin 875mg Tab ORAL SCH (21:00)
== END 2018-04-22 15:31 | DRG 720 ==
LOC: EDBD 19:58 → EMR 20:15 → 2E 21:43 → EDBEDREQ 04-15 00:21 → 2W 04-15 14:26 → 4E 04-17 22:25
DX: A41.9 Sepsis, unspecified organism (principal); G93.41 Metabolic encephalopathy; J15.212 Pneumonia due to Methicillin resistant Staphylococcus aureus; L89.159 Pressure ulcer of sacral region, unspecified stage; R13.10 Dysphagia, unspecified; E87.1 Hypo-osmolality and hyponatremia; R65.20 Severe sepsis without septic shock; E11.9 Type 2 diabetes mellitus without complications; Z86.73 Personal history of transient ischemic attack (TIA), and cerebral infarction without residual deficits; E78.5 Hyperlipidemia, unspecified; I10 Essential (primary) hypertension; D64.9 Anemia, unspecified
CPT/HCPCS: 36415; 36600; 70450; 71045; 80048; 80053; 80202; 81001; 81003; 82550; 82803; 82962; 83605; 83735; 84100; 84484; 85025; 86710; 87040; 87070; 87081; 87086; 87181; 87205; 93005; 93970; 94760; 96361; 96365; 96375; 99285; J1815

== ENCOUNTER 2018-07-01 10:51 | Inpatient (IN) | payer OTHER ==
[~2018-07-01] VITALS: Ht 172.7 cm; Wt 81.6 kg
[2018-07-01] VITALS (23 sets, daily range): BP systolic 69–129; BP diastolic 45–72
--- NOTE | 2018-07-01 10:44 | Emergency Room Report ---
History of Present Illness General Source: EMS Present Illness HPI Patient is a 62-year-old male who presented after increased altered mental status from nursing facility. Patient was noted to have increased hypotension and tachycardia. He was noted to be more altered than his baseline mental status. Patient is normally nonverbal but is able to track. Patient was noted to have increased congestion and difficulty breathing. He was brought in by EMS. Patient noted to be altered. patient was noted to be previously trach.History is limited by patient's mental status. Allergies: Coded Allergies: No Known Allergies (Unverified , 09/29/17) Patient History Past Medical History: see triage record Reviewed Nursing Documentation: PMH: Agreed; PSxH: Agreed Review of Systems All Other Systems: limited - Review of systems: Review systems is limited by patient's being a poor historian Physical Exam General Appearance: lethargic, Chronically Ill Neck: limited range of motion, other - old tracheostomy Respiratory: no respiratory distress, rhonchi Cardiovascular #1: normal peripheral pulses Gastrointestinal: soft Musculoskeletal: decreased range of motion Neurologic: motor weakness, other - somnolent Skin: other - large sacral decubitus ulcer Procedures Critical Care Time Critical Care Time Patient had a critical medical condition which untreated could potentially result in life or limb threatening injury. Total critical care time excluding procedures approximately 45 minutes. Medical Decision Making Diagnostic Impression: Primary Impression: Fever Additional Impressions: Sacral decubitus ulcer Septic shock Non-STEMI (non-ST elevated myocardial infarction) ER Course Patient presented for fever. Differential diagnosis included wasn't limited to pneumonia, urinary tract infection, drug fever, allergic reaction, sepsis, cholecystitis, among others. Because of complexity of patient's case laboratory testing and imaging studies were ordered. Laboratory showed markedly elevated white blood count. Patient was noted to have increased hypotension was started on IV fluids. Patient started on a Levophed drip. He was given a fluid bolus 30 cc/kg after blood cultures were obtained chest x- ray interpreted by me showed normal cardiac size without definite infiltrate. Patient was noted to have some evidence of urinary infection. He was also noted to have some decubitus ulcers. Patient was given the IV Zosyn as well as vancomycin.PICC line was placed by radiology.Patient was discussed with Dr. Alejo for [facility] due to prior admission. Patient is currently in critical condition. Labs Test 07/01/18 11:00 07/01/18 12:05 White Blood Count 29.4 K/UL (4.8-10.8) Red Blood Count 4.91 M/UL (4.70-6.10) Hemoglobin 11.6 G/DL (14.2-18.0) Hematocrit 37.5 % (42.0-52.0) Mean Corpuscular Volume 76 FL (80-99) Mean Corpuscular Hemoglobin 23.6 PG (27.0-31.0) Mean Corpuscular Hemoglobin Concent 30.9 G/DL (32.0-36.0) Red Cell Distribution Width 18.1 % (11.6-14.8) Platelet Count 330 K/UL (150-450) Mean Platelet Volume 7.2 FL (6.5-10.1) Neutrophils (%) (Auto) % (45.0-75.0) Lymphocytes (%) (Auto) % (20.0-45.0) Monocytes (%) (Auto) % (1.0-10.0) Eosinophils (%) (Auto) % (0.0-3.0) Basophils (%) (Auto) % (0.0-2.0) Differential Total Cells Counted 100 Neutrophils % (Manual) 63 % (45-75) Lymphocytes % (Manual) 4 % (20-45) Monocytes % (Manual) 5 % (1-10) Eosinophils % (Manual) 1 % (0-3) Basophils % (Manual) 0 % (0-2) Metamyelocytes % 1 % (0-0) Myelocytes % 1 % (0-0) Band Neutrophils 25 % (0-8) Platelet Estimate Adequate Platelet Morphology See comment Giant Platelets Rare Hypochromasia 2+ Anisocytosis 2+ Microcytosis 2+ Prothrombin Time 13.1 SEC (9.30-11.50) Prothromb Time International Ratio 1.3 (0.9-1.1) Activated Partial Thromboplast Time 34 SEC (23-33) Urine Color Yellow Urine Appearance Very cloudy Urine pH 8 (4.5-8.0) Urine Specific [place] 1.010 (1.005-1.035) Urine Protein 3+ (NEGATIVE) Urine Glucose (UA) Negative (NEGATIVE) Urine Ketones Negative (NEGATIVE) Urine Blood 5+ (NEGATIVE) Urine Nitrite Negative (NEGATIVE) Urine Bilirubin Negative (NEGATIVE) Urine Urobilinogen 1 MG/DL (0.0-1.0) Urine Leukocyte Esterase 3+ (NEGATIVE) Urine RBC 60-80 /HPF (0 - 0) Urine WBC 30-40 /HPF (0 - 0) Urine Squamous Epithelial Cells None /LPF (NONE/OCC) Urine Bacteria Many /HPF (NONE) Sodium Level 134 MMOL/L (136-145) Potassium Level 4.1 MMOL/L (3.5-5.1) Chloride Level 98 MMOL/L (98-107) Carbon Dioxide Level 22 MMOL/L (21-32) Anion Gap 14 mmol/L (5-15) Blood Urea Nitrogen 28 mg/dL (7-18) Creatinine 1.9 MG/DL (0.55-1.30) Estimat Glomerular Filtration Rate 36.0 mL/min (>60) Glucose Level 180 MG/DL (74-106) Calcium Level 9.2 MG/DL (8.5-10.1) Phosphorus Level 2.1 MG/DL (2.5-4.9) Magnesium Level 1.7 MG/DL (1.8-2.4) Total Bilirubin 0.3 MG/DL (0.2-1.0) Aspartate Amino Transf (AST/SGOT) 49 U/L (15-37) Alanine Aminotransferase (ALT/SGPT) 17 U/L (12-78) Alkaline Phosphatase 109 U/L (46-116) Total Creatine Kinase 734 U/L (26-308) Creatine Kinase MB 10.4 NG/ML (0.0-3.6) Creatine Kinase MB Relative Index 1.4 Troponin I 0.700 ng/mL (0.000-0.056) Total Protein 8.5 G/DL (6.4-8.2) Albumin 1.9 G/DL (3.4-5.0) Globulin 6.6 g/dL Albumin/Globulin Ratio 0.3 (1.0-2.7) Lactic Acid Level 8.50 mmol/L (0.66-2.22) Reevaluation Time: 15:44 See nurse's notes for vitals. Patient was noted to have improved mental status as well as improved perfusion peripherally. Cap refill was noted to be improved. Peripheral pulses are present. Skin is not mottled. Heart rate continues to be tachycardic with a heart rate of 121 oxygen saturation is 95% Status: unchanged Disposition: ADMITTED INPATIENT Condition: Critical Hansel Hernández MD July 01, 2018 10:44
[~2018-07-01 10:51] MED LIST changes: +AUGMENTIN 875-1 EAC1 GT; +BACTRIM DS TAB1 EAC1 GT
[2018-07-01] MEDS ORDERED: Piperacillin/Tazobactam 3.375 GM in NS 110 ML IVPB ONE (11:00)
--- NOTE | 2018-07-01 11:00 | NUR ---
ED Nurse Note: pt was brought in by ambulance from [facility] because of pt altered mental status and hypotension, pt bp upon arrival is 70/30. pt noted to have RR 145 and temp 102.5 rectal. pt came in with g 22 on the left wrist, with g tube and parks catheter. pt is non verbal. upon skin assessment pt noted to have pressure ulcer on left leg and left heel, on right ankle and unstageable pressure ulcer on the sacrococcyx area. ermd on bedside. will continue to monitor.
--- NOTE | 2018-07-01 11:30 | NUR ---
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
[2018-07-01 11:34] LABS: APPEARANCE,URINE VERY CLOUDY; BILIRUBIN, URINE NEGATIVE (NEGATIVE); GLUCOSE, URINE (UA) NEGATIVE (NEGATIVE); HEMATOCRIT 37.5 % (42.0-52.0); HEMOGLOBIN 11.6 G/DL (14.2-18.0); KETONES,URINE NEGATIVE (NEGATIVE); LEUKOCYTE ESTERASE ,URINE 3+ (NEGATIVE); MEAN CORPUSCULAR VOLUME 76 FL (80-99); NITRITE,URINE NEGATIVE (NEGATIVE); PH,URINE 8 (4.5-8.0); PLATELET COUNT 330 K/UL (150-450); PROTEIN,URINE 3+ (NEGATIVE); RED BLOOD COUNT 4.91 M/UL (4.70-6.10); RED CELL DISTRIBUTION WIDTH 18.1 % (11.6-14.8); UROBILINOGEN,URINE 1 MG/DL (0.0-1.0)
[2018-07-01 11:39] LABS: WHITE BLOOD COUNT 29.4 K/UL (4.8-10.8)
[2018-07-01 11:43] LABS: ANION GAP 14 mmol/L (5-15); BLOOD UREA NITROGEN 28 mg/dL (7-18); CALCIUM 9.2 MG/DL (8.5-10.1); CARBON DIOXIDE 22 MMOL/L (21-32); CHLORIDE 98 MMOL/L (98-107); CREATININE 1.9 MG/DL (0.55-1.30); POTASSIUM 4.1 MMOL/L (3.5-5.1); SODIUM 134 MMOL/L (136-145)
[2018-07-01 11:47] LABS: COLOR,URINE YELLOW
--- NOTE | 2018-07-01 11:52 | Diagnostic Imaging Report ---
Indication: Dyspnea Comparison: 04/22/2018 A single view chest radiograph was obtained. Findings: Some vascular and interstitial prominence are noted on the current examination. The heart is borderline enlarged. Lung volumes are low. IMPRESSION: Query mild interstitial edema.
[2018-07-01 11:56] LABS: ALANINE AMINOTRANSFERASE 17 U/L (12-78); ALBUMIN 1.9 G/DL (3.4-5.0); ALBUMIN/GLOBULIN RATIO 0.3 (1.0-2.7); ALKALINE PHOSPHATASE 109 U/L (46-116); ASPARTATE AMINO TRANSFERASE 49 U/L (15-37); BILIRUBIN,TOTAL 0.3 MG/DL (0.2-1.0); CKMB 10.4 NG/ML (0.0-3.6); CREATINE KINASE 734 U/L (26-308); PHOSPHORUS 2.1 MG/DL (2.5-4.9)
[2018-07-01 11:58] LABS: INR 1.3 (0.9-1.1)
[2018-07-01] MEDS ORDERED: Vancomycin 1.5gm Premix 275 ML IVPB ONE (12:00)
[2018-07-01] MEDS ORDERED: Vancomycin 1.5 GM in D5W 275 ML IVPB ONE (12:00)
--- NOTE | 2018-07-01 13:47 | NUR ---
ED Nurse Note: pt bp is 77/50, ermd ordered levophed iv and started on right ac as per md order, titration started @2mcg.
--- NOTE | 2018-07-01 14:15 | NUR ---
ED Nurse Note: pt vomited yellowish vomitus, pt head elevated, ermd made aware and ordered zofran iv and carried out
--- NOTE | 2018-07-01 14:20 | History and Physical ---
History of Present Illness General Date patient seen: July 01, 2018 Reason for Hospitalization: Altered Level of Consciousness Present Illness Allergies: Coded Allergies: No Known Allergies (Unverified , 09/29/17) Medication History Scheduled Amoxicillin/Potassium Clav 875-125* (Augmentin 875-125 Tablet*), 1 TAB GT TWICE A DAY Docusate Sodium* (Colace*), 100 MG ORAL DAILY, (Reported) Magnesium Hydroxide* (Milk Of Magnesia*), 30 ML ORAL DAILY, (Reported) Midodrine* (Proamatine*), 10 MG ORAL THREE TIMES A DAY, (Reported) Na Phos,M-B/Na Phos,Di-Ba* (Fleet Enema*), 133 ML RECTAL DAILY, (Reported) Pantoprazole* (Pantoprazole*), 40 MG ORAL DAILY, (Reported) Trimethoprim/Sulfamethoxazole 160/800* (Bactrim Ds Tablet*), 2 TAB GT Q12H Zinc Sulfate (Zinc Sulfate*), 220 MG ORAL DAILY, (Reported) Scheduled PRN Acetaminophen (Tylenol), 650 MG ORAL Q6H PRN for Prn Pain/Headache/Temp > 101, ( Reported) Miscellaneous Medications Bisacodyl (Dulcolax), 10 MG RC, (Reported) Ipratropium [place] (Ipratropium [place]), 15 ML NS, (Reported) Sennosides (Senna), 8.6 MG PO, (Reported) Patient History Healthcare decision maker Resuscitation status Advanced Directive on File Physical Exam Last 24 Hour Vital Signs Date Time Temp Pulse Resp B/P (MAP) Pulse Ox O2 Delivery O2 Flow Rate FiO2 07/01/18 13:47 68/51 07/01/18 12:31 145 16 Room Air 07/01/18 12:31 102.6 145 16 69/52 98 Room Air 07/01/18 10:41 102.6 148 16 98 Room Air Laboratory Tests Test 07/01/18 11:00 07/01/18 12:05 White Blood Count 29.4 K/UL (4.8-10.8) *H Red Blood Count 4.91 M/UL (4.70-6.10) Hemoglobin 11.6 G/DL (14.2-18.0) L Hematocrit 37.5 % (42.0-52.0) L Mean Corpuscular Volume 76 FL (80-99) L Mean Corpuscular Hemoglobin 23.6 PG (27.0-31.0) L Mean Corpuscular Hemoglobin Concent 30.9 G/DL (32.0-36.0) L Red Cell Distribution Width 18.1 % (11.6-14.8) H Platelet Count 330 K/UL (150-450) Mean Platelet Volume 7.2 FL (6.5-10.1) Neutrophils (%) (Auto) % (45.0-75.0) Lymphocytes (%) (Auto) % (20.0-45.0) Monocytes (%) (Auto) % (1.0-10.0) Eosinophils (%) (Auto) % (0.0-3.0) Basophils (%) (Auto) % (0.0-2.0) Differential Total Cells Counted 100 Neutrophils % (Manual) 63 % (45-75) Lymphocytes % (Manual) 4 % (20-45) L Monocytes % (Manual) 5 % (1-10) Eosinophils % (Manual) 1 % (0-3) Basophils % (Manual) 0 % (0-2) Metamyelocytes % 1 % (0-0) H Myelocytes % 1 % (0-0) H Band Neutrophils 25 % (0-8) H Platelet Estimate Adequate Platelet Morphology See comment Giant Platelets Rare Hypochromasia 2+ Anisocytosis 2+ Microcytosis 2+ Prothrombin Time 13.1 SEC (9.30-11.50) H Prothromb Time International Ratio 1.3 (0.9-1.1) H Activated Partial Thromboplast Time 34 SEC (23-33) H Urine Color Yellow Urine Appearance Very cloudy Urine pH 8 (4.5-8.0) Urine Specific [place] 1.010 (1.005-1.035) Urine Protein 3+ (NEGATIVE) H Urine Glucose (UA) Negative (NEGATIVE) Urine Ketones Negative (NEGATIVE) Urine Blood 5+ (NEGATIVE) H Urine Nitrite Negative (NEGATIVE) Urine Bilirubin Negative (NEGATIVE) Urine Urobilinogen 1 MG/DL (0.0-1.0) H Urine Leukocyte Esterase 3+ (NEGATIVE) H Urine RBC 60-80 /HPF (0 - 0) H Urine WBC 30-40 /HPF (0 - 0) H Urine Squamous Epithelial Cells None /LPF (NONE/OCC) Urine Bacteria Many /HPF (NONE) H Sodium Level 134 MMOL/L (136-145) L Potassium Level 4.1 MMOL/L (3.5-5.1) Chloride Level 98 MMOL/L (98-107) Carbon Dioxide Level 22 MMOL/L (21-32) Anion Gap 14 mmol/L (5-15) Blood Urea Nitrogen 28 mg/dL (7-18) H Creatinine 1.9 MG/DL (0.55-1.30) H Estimat Glomerular Filtration Rate 36.0 mL/min (>60) Glucose Level 180 MG/DL (74-106) H Lactic Acid Level 9.20 mmol/L (0.4-2.0) H 8.50 mmol/L (0.66-2.22) H Calcium Level 9.2 MG/DL (8.5-10.1) Phosphorus Level 2.1 MG/DL (2.5-4.9) L Magnesium Level 1.7 MG/DL (1.8-2.4) L Total Bilirubin 0.3 MG/DL (0.2-1.0) Aspartate Amino Transf (AST/SGOT) 49 U/L (15-37) H Alanine Aminotransferase (ALT/SGPT) 17 U/L (12-78) Alkaline Phosphatase 109 U/L (46-116) Total Creatine Kinase 734 U/L (26-308) H Creatine Kinase MB 10.4 NG/ML (0.0-3.6) H Creatine Kinase MB Relative Index 1.4 Troponin I 0.700 ng/mL (0.000-0.056) Total Protein 8.5 G/DL (6.4-8.2) H Albumin 1.9 G/DL (3.4-5.0) L Globulin 6.6 g/dL Albumin/Globulin Ratio 0.3 (1.0-2.7) L Height (Feet): 5 Height (Inches): 10.00 Weight (Pounds): 170 Medications Current Medications Medications (Trade) Dose Ordered Sig/Patience Route PRN Reason Start Time Stop Time Status Last Admin Dose Admin Norepinephrine Bitartrate 4 mg/ Dextrose 250 ml @ 0 mls/hr Q24H IV 07/01/18 13:30 07/31/18 13:29 07/01/18 13:47 MolReginald Mcgowan MD July 01, 2018 14:20
[2018-07-01] MEDS ORDERED: Heparin1,000 units/500ml Premix(Conc:2 units/ml) IV ONE (14:45)
[2018-07-01] MEDS ORDERED: Acetaminophen 650 MG SUPP RECTAL ONE (14:45)
[2018-07-01] MEDS ORDERED: Albuterol/Ipratropium 3ml neb HHN PRN (14:45)
[2018-07-01] MEDS ORDERED: Lidocaine 1% Plain 30 ml INJ ONE (14:45)
[2018-07-01] MEDS ORDERED: Acetaminophen 650 MG SUPP RECTAL PRN (14:45)
--- NOTE | 2018-07-01 14:49 | History and Physical ---
History of Present Illness General Date patient seen: July 01, 2018 Time patient seen: 14:45 Reason for Hospitalization: Altered Level of Consciousness Present Illness HPI 62 year old man from [facility], history of diabetes type 2, history of CVA, nonverbal, functional quadriplegia, dysphagia, hyperlipidemia who presented from the facility with confusion worse than baseline along with fever and tachycardia. Patient is unable to provide any information, obtained from ED physician. Patient was noted to be febrile to 102, tachycardic and hypotensive in ED with elevated lactate of 9. Patient referred for admission to ICU for septic shock, source possibly from infected sacral pressure ulcer. Social History: custodial resident Family History: Unable to obtain due to encephalopathy Allergies: Coded Allergies: No Known Allergies (Unverified , 09/29/17) Medication History Scheduled Amoxicillin/Potassium Clav 875-125* (Augmentin 875-125 Tablet*), 1 TAB GT TWICE A DAY Docusate Sodium* (Colace*), 100 MG ORAL DAILY, (Reported) Magnesium Hydroxide* (Milk Of Magnesia*), 30 ML ORAL DAILY, (Reported) Midodrine* (Proamatine*), 10 MG ORAL THREE TIMES A DAY, (Reported) Na Phos,M-B/Na Phos,Di-Ba* (Fleet Enema*), 133 ML RECTAL DAILY, (Reported) Pantoprazole* (Pantoprazole*), 40 MG ORAL DAILY, (Reported) Trimethoprim/Sulfamethoxazole 160/800* (Bactrim Ds Tablet*), 2 TAB GT Q12H Zinc Sulfate (Zinc Sulfate*), 220 MG ORAL DAILY, (Reported) Scheduled PRN Acetaminophen (Tylenol), 650 MG ORAL Q6H PRN for Prn Pain/Headache/Temp > 101, ( Reported) Miscellaneous Medications Bisacodyl (Dulcolax), 10 MG RC, (Reported) Ipratropium [place] (Ipratropium [place]), 15 ML NS, (Reported) Sennosides (Senna), 8.6 MG PO, (Reported) Patient History Healthcare decision maker Resuscitation status Advanced Directive on File Review of Systems ROS Narrative Unable to obtain due to encephalopathy Physical Exam General Appearance: alert, confused HEENT: normocephalic, atraumatic Respiratory/Chest: lungs clear, normal breath sounds, other - Tachypneic Cardiovascular/Chest: regular rhythm, tachycardia Abdomen: non tender, soft Neurologic: alert, disoriented Last 24 Hour Vital Signs Date Time Temp Pulse Resp B/P (MAP) Pulse Ox O2 Delivery O2 Flow Rate FiO2 07/01/18 13:47 68/51 07/01/18 12:31 145 16 Room Air 07/01/18 12:31 102.6 145 16 69/52 98 Room Air 07/01/18 10:41 102.6 148 16 98 Room Air Laboratory Tests Test 07/01/18 11:00 07/01/18 12:05 White Blood Count 29.4 K/UL (4.8-10.8) *H Red Blood Count 4.91 M/UL (4.70-6.10) Hemoglobin 11.6 G/DL (14.2-18.0) L Hematocrit 37.5 % (42.0-52.0) L Mean Corpuscular Volume 76 FL (80-99) L Mean Corpuscular Hemoglobin 23.6 PG (27.0-31.0) L Mean Corpuscular Hemoglobin Concent 30.9 G/DL (32.0-36.0) L Red Cell Distribution Width 18.1 % (11.6-14.8) H Platelet Count 330 K/UL (150-450) Mean Platelet Volume 7.2 FL (6.5-10.1) Neutrophils (%) (Auto) % (45.0-75.0) Lymphocytes (%) (Auto) % (20.0-45.0) Monocytes (%) (Auto) % (1.0-10.0) Eosinophils (%) (Auto) % (0.0-3.0) Basophils (%) (Auto) % (0.0-2.0) Differential Total Cells Counted 100 Neutrophils % (Manual) 63 % (45-75) Lymphocytes % (Manual) 4 % (20-45) L Monocytes % (Manual) 5 % (1-10) Eosinophils % (Manual) 1 % (0-3) Basophils % (Manual) 0 % (0-2) Metamyelocytes % 1 % (0-0) H Myelocytes % 1 % (0-0) H Band Neutrophils 25 % (0-8) H Platelet Estimate Adequate Platelet Morphology See comment Giant Platelets Rare Hypochromasia 2+ Anisocytosis 2+ Microcytosis 2+ Prothrombin Time 13.1 SEC (9.30-11.50) H Prothromb Time International Ratio 1.3 (0.9-1.1) H Activated Partial Thromboplast Time 34 SEC (23-33) H Urine Color Yellow Urine Appearance Very cloudy Urine pH 8 (4.5-8.0) Urine Specific [place] 1.010 (1.005-1.035) Urine Protein 3+ (NEGATIVE) H Urine Glucose (UA) Negative (NEGATIVE) Urine Ketones Negative (NEGATIVE) Urine Blood 5+ (NEGATIVE) H Urine Nitrite Negative (NEGATIVE) Urine Bilirubin Negative (NEGATIVE) Urine Urobilinogen 1 MG/DL (0.0-1.0) H Urine Leukocyte Esterase 3+ (NEGATIVE) H Urine RBC 60-80 /HPF (0 - 0) H Urine WBC 30-40 /HPF (0 - 0) H Urine Squamous Epithelial Cells None /LPF (NONE/OCC) Urine Bacteria Many /HPF (NONE) H Sodium Level 134 MMOL/L (136-145) L Potassium Level 4.1 MMOL/L (3.5-5.1) Chloride Level 98 MMOL/L (98-107) Carbon Dioxide Level 22 MMOL/L (21-32) Anion Gap 14 mmol/L (5-15) Blood Urea Nitrogen 28 mg/dL (7-18) H Creatinine 1.9 MG/DL (0.55-1.30) H Estimat Glomerular Filtration Rate 36.0 mL/min (>60) Glucose Level 180 MG/DL (74-106) H Lactic Acid Level 9.20 mmol/L (0.4-2.0) H 8.50 mmol/L (0.66-2.22) H Calcium Level 9.2 MG/DL (8.5-10.1) Phosphorus Level 2.1 MG/DL (2.5-4.9) L Magnesium Level 1.7 MG/DL (1.8-2.4) L Total Bilirubin 0.3 MG/DL (0.2-1.0) Aspartate Amino Transf (AST/SGOT) 49 U/L (15-37) H Alanine Aminotransferase (ALT/SGPT) 17 U/L (12-78) Alkaline Phosphatase 109 U/L (46-116) Total Creatine Kinase 734 U/L (26-308) H Creatine Kinase MB 10.4 NG/ML (0.0-3.6) H Creatine Kinase MB Relative Index 1.4 Troponin I 0.700 ng/mL (0.000-0.056) Total Protein 8.5 G/DL (6.4-8.2) H Albumin 1.9 G/DL (3.4-5.0) L Globulin 6.6 g/dL Albumin/Globulin Ratio 0.3 (1.0-2.7) L Height (Feet): 5 Height (Inches): 10.00 Weight (Pounds): 170 Medications Current Medications Medications (Trade) Dose Ordered Sig/Patience Route PRN Reason Start Time Stop Time Status Last Admin Dose Admin Acetaminophen (Tylenol) 650 mg ONCE ONCE RECTAL 07/01/18 14:45 07/01/18 14:46 Acetaminophen (Tylenol) 650 mg Q4H PRN RECTAL FEVER 07/01/18 14:45 07/31/18 14:44 Albuterol/ Ipratropium (Albuterol/ Ipratropium) 3 ml Q4H PRN HHN Shortness of Breath 07/01/18 14:45 07/06/18 14:44 Chlorhexidine Gluconate (Cristine-Hex 2%) 1 applic DAILY@2000 TOPIC 07/01/18 20:00 07/31/18 19:59 Dextrose (Dextrose 50%) 25 ml Q30M PRN IV Hypoglycemia 07/01/18 14:45 07/31/18 14:44 Dextrose (Dextrose 50%) 50 ml Q30M PRN IV Hypoglycemia 07/01/18 14:45 07/31/18 14:44 Heparin Sodium (Porcine) (Heparin 5000 units/ml) 5,000 units EVERY 12 HOURS SUBQ 07/01/18 21:00 07/31/18 20:59 Heparin Sodium/ Sodium Chloride (Heparin 1000 units/500ml Premix) 1,000 unit ONCE ONCE IV 07/01/18 14:45 07/01/18 14:46 Lidocaine HCl (Xylocaine 1% 30ml) 30 ml ONCE ONCE INJ 07/01/18 14:45 07/01/18 14:46 Norepinephrine Bitartrate 4 mg/ Dextrose 250 ml @ 0 mls/hr Q24H IV 07/01/18 13:30 07/31/18 13:29 07/01/18 13:47 Ondansetron HCl (Zofran) 4 mg Q6H PRN IVP Nausea & Vomiting 07/01/18 14:45 07/31/18 14:44 Piperacillin Sod/ Tazobactam Sod 3.375 gm/Sodium Chloride 110 ml @ 27.5 mls/hr EVERY 8 HOURS IVPB 07/01/18 22:00 07/06/18 21:59 UNV Sodium Chloride 1,000 ml @ 100 mls/hr Q10H IVLG 07/01/18 14:46 07/31/18 14:45 Vancomycin HCl (Vanco rx to dose) 1 ea DAILY PRN MISC Per rx protocol 07/01/18 14:45 07/31/18 14:44 UNV Assessment/Plan Assessment/Plan: #Acute metabolic encephalopathy #Severe Sepsis #Septic shock suspected to be due to infected pressure ulcers #Acute metabolic encephalopathy #Functional quadriplegia #Sacral pressure ulcers,present on admission -admit to ICU, consult Dr. Murrieta -Edwino and Zosyn - monitor drug levels per pharmacy protocol, consult ID -IV fluids -Vasopressors via central line -monitor daily labs -Supportive care -Fall precautions -Aspiration precautions -Surgical consult for wound care recs #DARRIAN secondary to ATN #Hyponatremia -continue IV hydration and treatment of sepsis -Nephrology consulted #Hypotension #Type 2 NSTEMI from demand ischemia from septic shock -continue supportive care -cardiology consult -cardiac monitoring -serial troponin VTE PPx Full Code I spent an additional 38 minutes on review of medical records including prior outside hospital records, consult notes, progress notes, procedures, imaging, labs, hemodynamics, and other clinical documentation. Reginald Pulido MD July 01, 2018 14:49
[2018-07-01] MEDS ORDERED: Albuterol/Ipratropium 3ml neb HHN ONE (15:00)
--- NOTE | 2018-07-01 15:00 | NUR ---
HAND-OFF: Report given to report given to Ginger calvo.
--- NOTE | 2018-07-01 15:08 | Consultation ---
Consult Note Assessment/Plan DICT: [id number] Partha Murrieta MD July 01, 2018 15:08
--- NOTE | 2018-07-01 15:10 | NUR ---
ED Nurse Note: received report from MARIA ELENA Gupta and assumed care, pt currently sinus tach, noted low bp 89/50, tacypnea RR40, on RA, o2sat 100%, noted open trach on neck, noted gtube and parks. pt parks changed 16fr, tolerated well. secured w/ dressing. pt cleaned and changed. noted pressure ulcer sacral, right buttock, left buttock, right heel and ankle and left heel and left lower leg noted. will cont monitor. pt currently nonverbal but makes eyecontact to voice.
--- NOTE | 2018-07-01 15:40 | NUR ---
ED Nurse Note: Pt receiving breathing tx, suctioned as well, will cont monitor.
--- NOTE | 2018-07-01 16:04 | Diagnostic Imaging Report ---
Indication: terminal superintendent venous access Findings: After the indications, procedure, risks, complications, and alternatives of the procedure were explained, written informed consent was obtained. The right upper extremity was prepped with alcohol. All elements of maximal sterile barrier technique were followed including usage of a cap, mask, sterile gown, sterile gloves, hand hygiene and a large sterile sheet. Sonographic evaluation of the upper extremity was performed demonstrating a patent and compressible basilic vein. Access was obtained under real-time ultrasound guidance (with utilization of sterile gel and sterile probe cover) and digital image was saved and archived. An .018 wire was introduced. Needle exchanged for a 5 American peel-away sheath. Measurements were obtained. A 5 American dual-lumen Power PICC line catheter was cut to 35 cm and introduced over the wire. Peel-away sheath and wire were removed.Catheter was secured to the skin using 2-0 Prolene suture. Both ports aspirate and flush easily. Post procedure chest x-ray demonstrates good position of the PICC line catheter within the SVC/innominate vein junction. Impression: Successful placement of an upper extremity PICC line catheter
--- NOTE | 2018-07-01 16:13 | Infectious Diseases Prog Note ---
Assessment/Plan Assessment/Plan Full consult dictated: A) sepsis shock uti possible sacral wound infection sirs, leukocytosis, fevers P) zosyn and vancomycin check cultures, labs and chest x-ray surgery evaluation of wound d/w Dr. Grewal thank you Subjective Allergies: Coded Allergies: No Known Allergies (Unverified , 09/29/17) Objective Vital Signs Last 24 Hour Vital Signs Date Time Temp Pulse Resp B/P (MAP) Pulse Ox O2 Delivery O2 Flow Rate FiO2 07/01/18 14:42 92/46 07/01/18 14:27 100/59 07/01/18 14:12 92/46 07/01/18 14:07 88/50 07/01/18 14:02 83/48 07/01/18 13:57 81/50 07/01/18 13:52 77/50 07/01/18 13:47 68/51 07/01/18 12:31 145 16 Room Air 07/01/18 12:31 102.6 145 16 69/52 98 Room Air 07/01/18 10:41 102.6 148 16 98 Room Air Height (Feet): 5 Height (Inches): 10.00 Weight (Pounds): 170 Laboratory Tests Test 07/01/18 11:00 07/01/18 12:05 White Blood Count 29.4 K/UL (4.8-10.8) *H Red Blood Count 4.91 M/UL (4.70-6.10) Hemoglobin 11.6 G/DL (14.2-18.0) L Hematocrit 37.5 % (42.0-52.0) L Mean Corpuscular Volume 76 FL (80-99) L Mean Corpuscular Hemoglobin 23.6 PG (27.0-31.0) L Mean Corpuscular Hemoglobin Concent 30.9 G/DL (32.0-36.0) L Red Cell Distribution Width 18.1 % (11.6-14.8) H Platelet Count 330 K/UL (150-450) Mean Platelet Volume 7.2 FL (6.5-10.1) Neutrophils (%) (Auto) % (45.0-75.0) Lymphocytes (%) (Auto) % (20.0-45.0) Monocytes (%) (Auto) % (1.0-10.0) Eosinophils (%) (Auto) % (0.0-3.0) Basophils (%) (Auto) % (0.0-2.0) Differential Total Cells Counted 100 Neutrophils % (Manual) 63 % (45-75) Lymphocytes % (Manual) 4 % (20-45) L Monocytes % (Manual) 5 % (1-10) Eosinophils % (Manual) 1 % (0-3) Basophils % (Manual) 0 % (0-2) Metamyelocytes % 1 % (0-0) H Myelocytes % 1 % (0-0) H Band Neutrophils 25 % (0-8) H Platelet Estimate Adequate Platelet Morphology See comment Giant Platelets Rare Hypochromasia 2+ Anisocytosis 2+ Microcytosis 2+ Prothrombin Time 13.1 SEC (9.30-11.50) H Prothromb Time International Ratio 1.3 (0.9-1.1) H Activated Partial Thromboplast Time 34 SEC (23-33) H Urine Color Yellow Urine Appearance Very cloudy Urine pH 8 (4.5-8.0) Urine Specific [place] 1.010 (1.005-1.035) Urine Protein 3+ (NEGATIVE) H Urine Glucose (UA) Negative (NEGATIVE) Urine Ketones Negative (NEGATIVE) Urine Blood 5+ (NEGATIVE) H Urine Nitrite Negative (NEGATIVE) Urine Bilirubin Negative (NEGATIVE) Urine Urobilinogen 1 MG/DL (0.0-1.0) H Urine Leukocyte Esterase 3+ (NEGATIVE) H Urine RBC 60-80 /HPF (0 - 0) H Urine WBC 30-40 /HPF (0 - 0) H Urine Squamous Epithelial Cells None /LPF (NONE/OCC) Urine Bacteria Many /HPF (NONE) H Sodium Level 134 MMOL/L (136-145) L Potassium Level 4.1 MMOL/L (3.5-5.1) Chloride Level 98 MMOL/L (98-107) Carbon Dioxide Level 22 MMOL/L (21-32) Anion Gap 14 mmol/L (5-15) Blood Urea Nitrogen 28 mg/dL (7-18) H Creatinine 1.9 MG/DL (0.55-1.30) H Estimat Glomerular Filtration Rate 36.0 mL/min (>60) Glucose Level 180 MG/DL (74-106) H Lactic Acid Level 9.20 mmol/L (0.4-2.0) H 8.50 mmol/L (0.66-2.22) H Calcium Level 9.2 MG/DL (8.5-10.1) Phosphorus Level 2.1 MG/DL (2.5-4.9) L Magnesium Level 1.7 MG/DL (1.8-2.4) L Total Bilirubin 0.3 MG/DL (0.2-1.0) Aspartate Amino Transf (AST/SGOT) 49 U/L (15-37) H Alanine Aminotransferase (ALT/SGPT) 17 U/L (12-78) Alkaline Phosphatase 109 U/L (46-116) Total Creatine Kinase 734 U/L (26-308) H Creatine Kinase MB 10.4 NG/ML (0.0-3.6) H Creatine Kinase MB Relative Index 1.4 Troponin I 0.700 ng/mL (0.000-0.056) Total Protein 8.5 G/DL (6.4-8.2) H Albumin 1.9 G/DL (3.4-5.0) L Globulin 6.6 g/dL Albumin/Globulin Ratio 0.3 (1.0-2.7) L Current Medications Medications (Trade) Dose Ordered Sig/Patience Route PRN Reason Start Time Stop Time Status Last Admin Dose Admin Acetaminophen (Tylenol) 650 mg Q4H PRN RECTAL FEVER 07/01/18 14:45 07/31/18 14:44 Albuterol/ Ipratropium (Albuterol/ Ipratropium) 3 ml Q4H PRN HHN Shortness of Breath 07/01/18 14:45 07/06/18 14:44 Chlorhexidine Gluconate (Cristine-Hex 2%) 1 applic DAILY@2000 TOPIC 07/01/18 20:00 07/31/18 19:59 Dextrose (Dextrose 50%) 25 ml Q30M PRN IV Hypoglycemia 07/01/18 14:45 07/31/18 14:44 Dextrose (Dextrose 50%) 50 ml Q30M PRN IV Hypoglycemia 07/01/18 14:45 07/31/18 14:44 Heparin Sodium (Porcine) (Heparin 5000 units/ml) 5,000 units EVERY 12 HOURS SUBQ 07/01/18 21:00 07/31/18 20:59 Norepinephrine Bitartrate 4 mg/ Dextrose 250 ml @ 0 mls/hr Q24H IV 07/01/18 13:30 07/31/18 13:29 07/01/18 13:47 Ondansetron HCl (Zofran) 4 mg Q6H PRN IVP Nausea & Vomiting 07/01/18 14:45 07/31/18 14:44 Piperacillin Sod/ Tazobactam Sod 3.375 gm/Sodium Chloride 110 ml @ 27.5 mls/hr EVERY 8 HOURS IVPB 07/01/18 22:00 07/06/18 21:59 UNV Sodium Chloride 1,000 ml @ 100 mls/hr Q10H IVLG 07/01/18 14:46 07/31/18 14:45 Vancomycin HCl (Vanco rx to dose) 1 ea DAILY PRN MISC Per rx protocol 07/01/18 14:45 07/31/18 14:44 UNV Gwendolyn Marquez MD July 01, 2018 16:12
--- NOTE | 2018-07-01 16:20 | NUR ---
ED Nurse Note: pt cleaned and changed.
--- NOTE | 2018-07-01 17:40 | NUR ---
ED Nurse Note: paged Dr. Lindsey to notify pt's current condition, pt has persistent cough, vomiting yellow brown color x2, pt was given zofran per order, ERMD notified regarding pt's condition as well.
--- NOTE | 2018-07-01 18:10 | NUR ---
ED Nurse Note: received order for bipap from RT GRIFFIN at the bedside. pt was suctioned by RT.
--- NOTE | 2018-07-01 19:30 | Consultation ---
DATE OF CONSULTATION: 07/01/2018 PULMONARY CONSULTATION CONSULTING PHYSICIAN: Partha Murrieta M.D. REFERRING PHYSICIAN: Dr. Reginald Alejo. REASON FOR CONSULTATION: Sepsis. HISTORY OF PRESENT ILLNESS: The patient is a 62-year-old male, nursing facility patient with a history of CVA, diabetes, prior tracheostomy, recent admission in April with pneumonia, now presenting from the facility with alteration in mental status, hypotension, increased respiratory secretions. The patient was started on pressors in the emergency room. He is currently on 10 mcg of norepinephrine. T-max is 102.6. He is actually saturating well on room air, but is having some respiratory distress. He tracks at baseline. No further history is available from the patient. History was obtained from record review and speaking with the ER physician and primary doctor. PAST MEDICAL HISTORY: 1. Prior CVA. 2. Nonverbal at baseline. 3. Dysphagia, status post G-tube. 4. Hypertension. 5. Hyperlipidemia. 6. Diabetes. 7. Known sacral wounds. 8. Recent admission with Staph aureus/MRSA pneumonia. PAST SURGICAL HISTORY: Unknown. ALLERGIES: No known drug allergies. MEDICATIONS: Prior to admission, medications reviewed. SOCIAL HISTORY: custodial resident, otherwise unknown. FAMILY HISTORY: Noncontributory. REVIEW OF SYSTEMS: Unobtainable. PHYSICAL EXAMINATION: VITAL SIGNS: Temperature 102.6, pulse 145, respiratory rate 16, and saturating 98% on room air. Blood pressure 68/51 on 10 mcg of norepinephrine. GENERAL: He is a nonverbal male. He tracks with his eyes. He is in mild respiratory distress. HEENT: Normocephalic and atraumatic. Oropharynx clear. NECK: Supple. Prior tracheostomy scar is noted. CHEST: Coarse bilateral rhonchi. HEART: Tachycardic but regular. ABDOMEN: Soft, nontender, and nondistended. G-tube is intact. Sacral wound is noted. EXTREMITIES: No cyanosis, clubbing, or edema. ANCILLARY DATA: White count 29.4, 25% of which is bands, hemoglobin 11.6, hematocrit 37.5, and platelet count 330. INR 1.3. Sodium 134, potassium 4.1, chloride 98, bicarb 24, BUN 28, creatinine 1.9. Creatinine on discharge April 21 was 0.4. Glucose 180. Lactic acid 9.2. Calcium 9.2, phosphorus 2.1, magnesium 1.7, total bilirubin 0.3, AST 49, ALT 17, alkaline phosphatase 109. CK 73, CK-MB 7.4, troponin 0.7. Total protein 8.5 and albumin 1.9. Globulin 6.6, 3+ protein, 5+ blood, 1+ urobilinogen, 3+ leukocyte esterase. No culture data yet. Chest x-ray reviewed by myself shows fluffy bilateral infiltrates. ASSESSMENT: The patient is a 62-year-old male retirement resident with a history of prior CVA, nonverbal at baseline, tracheostomy in the past, G-tube dependent, presenting with altered mental status, hypotension secondary to shock and likely sepsis. I suspect a respiratory source given increased respiratory secretions and scattered bilateral infiltrates. He is saturating well, but we will check ABG to assess baseline gas exchange. He has been started on pressors and broad-spectrum antimicrobial therapy by the emergency department. PROBLEM LIST: 1. Shock/sepsis. 2. Scattered bilateral interstitial opacities, possible multilobar pneumonia. 3. Urinary tract infection. 4. History of MRSA pneumonia in the past. 5. Acute kidney injury. 6. Lactic acidosis. 7. Non ST-elevation myocardial infarction/troponinemia, likely demand ischemia. 8. Protein-calorie malnutrition. 9. Leukocytosis with significant bandemia. 10. custodial resident. 11. 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 12. History of tracheostomy in the past. 13. Dysphagia, status post G-tube treatment. TREATMENT PLAN: 1. Stat ABG. 2. The patient is awaiting central access. 3. Titrate norepinephrine to keep mask greater than 60. 4. Intravenous fluids as tolerated. 5. Broad-spectrum antibiotics, the patient has been started on Zosyn and vancomycin for healthcare associated coverage in the ER. 6. Follow up cultures. 7. Trend lactic acid and monitor renal function. 8. Optimize pulmonary hygiene/mobilize as tolerated. 9. P.r.n. O2 to keep saturations greater than 92%. 10. [id number] and p.r.n. bronchodilators. 11. Hold tube feeds until patient is more stable. 12. DVT prophylaxis, heparin subcutaneous. 13. The patient is a full code, continue to discuss goals of care. Dr. Alejo, thank you for allowing me to assist in the care of your patient. If I may be of any assistance, please do not hesitate to ask. A 60 minutes of critical care time was spent in the care of this patient. Partha Murrieta M.D. DR: Gia JOB#: [id number] CC:
--- NOTE | 2018-07-01 19:50 | NUR ---
ED Nurse Note: REPORT GIVEN TO MARIA ELENA HERNANDEZ FROM ICU
--- NOTE | 2018-07-01 20:09 | NUR ---
NURSE NOTES: RECEIVED PATIENT FROM ER NURSE VIA HOSPITAL BED. PATIENT LETHARGIC, NON VERBAL, NO RESPONSE TO VERBAL STIMULI AT THIS TIME, ON BIPAP I/E /, FIO2 40%, RATE 16, O2 SATURATION OVER 98% NOTED, ABDOMEN SOFT, NO BOWEL MOVEMENT, G TUBE INTACT AND CLAMP STATUS, F/C INTACT AND PATENT PINKISH YELLOW URINE OUTED, PICC LINE TO RIGHT UPPER ARM, INTACT AND PATENT, ONGOING LEVOPHED 18MCG/MIN AND NS AT 100ML/HR VIA PICC LINE, MADE LOWER BED POSITION, HOB 30 DEGREE, PROVIDED CALL LIGHT WITHIN REACH, WILL CONTINUE TO MONITOR.
--- NOTE | 2018-07-01 20:10 | NUR ---
NURSE NOTES: SKIN IS DRY, PRESSURE ULCER TO SACRAL, SCATTERS HYPERPIGMENTATION TO BOTH ISCHIAL AREA, BOTH FEET, OPEN WOUND TO LEFT LATERAL LOWER LEG AND REDNESS TO BOTH MARQUIS AREA.
--- NOTE | 2018-07-01 20:12 | NUR ---
ED Nurse Note: pt transferred to ICU, no belongings, care endorsed to MARIA ELNEA Carlin, advised RN to notify Dr. Lindsey regarding bipap. iv intact and patent.
[2018-07-01] MEDS: Dyna-Hex 2% Top Sol 2oz TOPIC SCH (21:51)
[2018-07-01] MEDS: Heparin 5000 units/ml inj SUBQ SCH (21:52)
[2018-07-01] MEDS: Piperacillin/Tazobactam 3.375 GM in NS 110 ML IVPB SCH (21:54)
--- NOTE | 2018-07-01 22:00 | NUR ---
NURSE NOTES: REPOSITIONED, NO PAIN OR DISTRESS NOTED.
--- NOTE | 2018-07-01 23:00 | Consultation ---
History of Present Illness General Date patient seen: July 01, 2018 Time patient seen: 17:45 Chief Complaint: Altered Level of Consciousness Present Illness HPI Patient was brought in by ambulance from [facility] because of pt altered mental status and hypotension, pt bp upon arrival is 70/30. pt noted to have RR 145 and temp 102.5. He has a history of diabetes type 2, history of CVA, nonverbal, functional quadriplegia, dysphagia, hyperlipidemia. He was started on pressors and sent to ICU. Allergies: Coded Allergies: No Known Allergies (Unverified , 09/29/17) Medication History Scheduled Amoxicillin/Potassium Clav 875-125* (Augmentin 875-125 Tablet*), 1 TAB GT TWICE A DAY Docusate Sodium* (Colace*), 100 MG ORAL DAILY, (Reported) Magnesium Hydroxide* (Milk Of Magnesia*), 30 ML ORAL DAILY, (Reported) Midodrine* (Proamatine*), 10 MG ORAL THREE TIMES A DAY, (Reported) Na Phos,M-B/Na Phos,Di-Ba* (Fleet Enema*), 133 ML RECTAL DAILY, (Reported) Pantoprazole* (Pantoprazole*), 40 MG ORAL DAILY, (Reported) Trimethoprim/Sulfamethoxazole 160/800* (Bactrim Ds Tablet*), 2 TAB GT Q12H Zinc Sulfate (Zinc Sulfate*), 220 MG ORAL DAILY, (Reported) Scheduled PRN Acetaminophen (Tylenol), 650 MG ORAL Q6H PRN for Prn Pain/Headache/Temp > 101, ( Reported) Miscellaneous Medications Bisacodyl (Dulcolax), 10 MG RC, (Reported) Ipratropium [place] (Ipratropium Point Clear), 15 ML NS, (Reported) Sennosides (Senna), 8.6 MG PO, (Reported) Patient History Healthcare decision maker harry kirk Resuscitation status Full Code Advanced Directive on File No Review of Systems Constitutional: Reports: chills, sweats, fever Eye: Reports: no symptoms ENT: Reports: no symptoms Respiratory: Reports: orthopnea, shortness of breath Gastrointestinal: Reports: no symptoms Genitourinary: Reports: no symptoms Musculoskeletal: Reports: no symptoms Skin: Reports: no symptoms Psychiatric: Reports: no symptoms Neurological: Reports: no symptoms Endocrine: Reports: no symptoms Hematologic/Lymphatic: Reports: no symptoms Physical Exam General Appearance: lethargic, moderate distress Lines, tubes and drains: peripheral, central line HEENT: normocephalic, atraumatic, EOMI, pharynx normal, supple, no JVD Neck: non-tender, supple, normal inspection Respiratory/Chest: crackles/rales, rhonchi - bilaterally, rhonchi - left Cardiovascular/Chest: normal peripheral pulses, normal rate, regular rhythm Abdomen: normal bowel sounds, non tender, soft, no organomegaly, no mass Extremities: normal range of motion, non-tender, normal inspection, no calf tenderness, normal capillary refill, non-pitting Neurologic: director voice II-XII grossly normal, motor weakness Last 24 Hour Vital Signs Date Time Temp Pulse Resp B/P (MAP) Pulse Ox O2 Delivery O2 Flow Rate FiO2 07/01/18 22:35 112/67 07/01/18 21:03 106 28 99 Facial 40 07/01/18 20:56 40 07/01/18 20:30 108 18 100/65 (77) 99 07/01/18 20:15 107 07/01/18 20:15 98.6 107 20 116/65 (82) 97 07/01/18 20:14 98.7 104 34 120/67 100 Bi-pap 40 07/01/18 20:00 98.5 105 38 129/50 100 Bi-pap 40 07/01/18 19:54 116 32 95 Facial 40 07/01/18 19:25 40 07/01/18 19:20 118 40 Bi-pap 07/01/18 19:10 98.9 110 35 122/55 98 Bi-pap 40 07/01/18 19:01 128/71 07/01/18 18:15 120 39 95 Facial 40 07/01/18 18:10 98.7 118 40 110/48 96 Bi-pap 40 07/01/18 18:05 114/61 07/01/18 17:35 108/76 07/01/18 17:05 126/38 07/01/18 16:35 101/54 07/01/18 16:26 119 27 95 Room Air 21 07/01/18 16:10 118 30 94 Room Air 21 07/01/18 16:10 118 30 Room Air 21 07/01/18 16:05 113/46 07/01/18 15:50 109/61 07/01/18 15:35 113/46 07/01/18 15:30 100/24 07/01/18 15:25 98/52 07/01/18 15:20 92/50 07/01/18 15:15 87/42 07/01/18 15:10 87/45 07/01/18 15:05 89/56 07/01/18 15:00 86/49 07/01/18 15:00 100.5 118 38 86/49 98 Room Air 07/01/18 15:00 118 38 Room Air 07/01/18 14:42 92/46 07/01/18 14:27 100/59 07/01/18 14:12 92/46 07/01/18 14:07 88/50 07/01/18 14:02 83/48 07/01/18 13:57 81/50 07/01/18 13:52 77/50 07/01/18 13:47 68/51 07/01/18 12:31 145 16 Room Air 07/01/18 12:31 102.6 145 16 69/52 98 Room Air 07/01/18 10:41 102.6 148 16 98 Room Air Laboratory Tests Test 07/01/18 11:00 07/01/18 12:05 07/01/18 16:20 07/01/18 18:09 White Blood Count 29.4 K/UL (4.8-10.8) *H Red Blood Count 4.91 M/UL (4.70-6.10) Hemoglobin 11.6 G/DL (14.2-18.0) L Hematocrit 37.5 % (42.0-52.0) L Mean Corpuscular Volume 76 FL (80-99) L Mean Corpuscular Hemoglobin 23.6 PG (27.0-31.0) L Mean Corpuscular Hemoglobin Concent 30.9 G/DL (32.0-36.0) L Red Cell Distribution Width 18.1 % (11.6-14.8) H Platelet Count 330 K/UL (150-450) Mean Platelet Volume 7.2 FL (6.5-10.1) Neutrophils (%) (Auto) % (45.0-75.0) Lymphocytes (%) (Auto) % (20.0-45.0) Monocytes (%) (Auto) % (1.0-10.0) Eosinophils (%) (Auto) % (0.0-3.0) Basophils (%) (Auto) % (0.0-2.0) Differential Total Cells Counted 100 Neutrophils % (Manual) 63 % (45-75) Lymphocytes % (Manual) 4 % (20-45) L Monocytes % (Manual) 5 % (1-10) Eosinophils % (Manual) 1 % (0-3) Basophils % (Manual) 0 % (0-2) Metamyelocytes % 1 % (0-0) H Myelocytes % 1 % (0-0) H Band Neutrophils 25 % (0-8) H Platelet Estimate Adequate Platelet Morphology See comment Giant Platelets Rare Hypochromasia 2+ Anisocytosis 2+ Microcytosis 2+ Prothrombin Time 13.1 SEC (9.30-11.50) H Prothromb Time International Ratio 1.3 (0.9-1.1) H Activated Partial Thromboplast Time 34 SEC (23-33) H Urine Color Yellow Urine Appearance Very cloudy Urine pH 8 (4.5-8.0) Urine Specific [place] 1.010 (1.005-1.035) Urine Protein 3+ (NEGATIVE) H Urine Glucose (UA) Negative (NEGATIVE) Urine Ketones Negative (NEGATIVE) Urine Blood 5+ (NEGATIVE) H Urine Nitrite Negative (NEGATIVE) Urine Bilirubin Negative (NEGATIVE) Urine Urobilinogen 1 MG/DL (0.0-1.0) H Urine Leukocyte Esterase 3+ (NEGATIVE) H Urine RBC 60-80 /HPF (0 - 0) H Urine WBC 30-40 /HPF (0 - 0) H Urine Squamous Epithelial Cells None /LPF (NONE/OCC) Urine Bacteria Many /HPF (NONE) H Sodium Level 134 MMOL/L (136-145) L Potassium Level 4.1 MMOL/L (3.5-5.1) Chloride Level 98 MMOL/L (98-107) Carbon Dioxide Level 22 MMOL/L (21-32) Anion Gap 14 mmol/L (5-15) Blood Urea Nitrogen 28 mg/dL (7-18) H Creatinine 1.9 MG/DL (0.55-1.30) H Estimat Glomerular Filtration Rate 36.0 mL/min (>60) Glucose Level 180 MG/DL (74-106) H Lactic Acid Level 9.20 mmol/L (0.4-2.0) H 8.50 mmol/L (0.66-2.22) H Calcium Level 9.2 MG/DL (8.5-10.1) Phosphorus Level 2.1 MG/DL (2.5-4.9) L Magnesium Level 1.7 MG/DL (1.8-2.4) L Total Bilirubin 0.3 MG/DL (0.2-1.0) Aspartate Amino Transf (AST/SGOT) 49 U/L (15-37) H Alanine Aminotransferase (ALT/SGPT) 17 U/L (12-78) Alkaline Phosphatase 109 U/L (46-116) Total Creatine Kinase 734 U/L (26-308) H Creatine Kinase MB 10.4 NG/ML (0.0-3.6) H Creatine Kinase MB Relative Index 1.4 Troponin I 0.700 ng/mL (0.000-0.056) Total Protein 8.5 G/DL (6.4-8.2) H Albumin 1.9 G/DL (3.4-5.0) L Globulin 6.6 g/dL Albumin/Globulin Ratio 0.3 (1.0-2.7) L Arterial Blood pH 7.409 (7.350-7.450) 7.378 (7.350-7.450) Arterial Blood Partial Pressure CO2 28.4 mmHg (35.0-45.0) L 31.9 mmHg (35.0-45.0) L Arterial Blood Partial Pressure O2 85.2 mmHg (75.0-100.0) 88.9 mmHg (75.0-100.0) Arterial Blood HCO3 17.6 mmol/L (22.0-26.0) *L 18.4 mmol/L (22.0-26.0) L Arterial Blood Oxygen Saturation 95.8 % (95-100) 96.4 % (95-100) Arterial Blood Base Excess -6.0 (-2-2) L -5.9 (-2-2) L Richi Test Positive Positive Test 07/01/18 21:10 Lactic Acid Level 3.90 mmol/L (0.4-2.0) H Height (Feet): 5 Height (Inches): 8.00 Weight (Pounds): 170 Medications Current Medications Medications (Trade) Dose Ordered Sig/Patience Route PRN Reason Start Time Stop Time Status Last Admin Dose Admin Acetaminophen (Tylenol) 650 mg Q4H PRN RECTAL FEVER 07/01/18 14:45 07/31/18 14:44 Albuterol/ Ipratropium (Albuterol/ Ipratropium) 3 ml Q4H PRN HHN Shortness of Breath 07/01/18 14:45 07/06/18 14:44 Chlorhexidine Gluconate (Cristine-Hex 2%) 1 applic DAILY@2000 TOPIC 07/01/18 20:00 07/31/18 19:59 07/01/18 21:51 Dextrose (Dextrose 50%) 25 ml Q30M PRN IV Hypoglycemia 07/01/18 14:45 07/31/18 14:44 Dextrose (Dextrose 50%) 50 ml Q30M PRN IV Hypoglycemia 07/01/18 14:45 07/31/18 14:44 Heparin Sodium (Porcine) (Heparin 5000 units/ml) 5,000 units EVERY 12 HOURS SUBQ 07/01/18 21:00 07/31/18 20:59 07/01/18 21:52 Norepinephrine Bitartrate 4 mg/ Dextrose 250 ml @ 0 mls/hr Q24H IV 07/01/18 22:00 07/31/18 21:59 07/01/18 22:35 Ondansetron HCl (Zofran) 4 mg Q6H PRN IVP Nausea & Vomiting 07/01/18 14:45 07/31/18 14:44 07/01/18 18:23 Piperacillin Sod/ Tazobactam Sod 3.375 gm/Sodium Chloride 110 ml @ 27.5 mls/hr EVERY 8 HOURS IVPB 07/01/18 22:00 07/06/18 21:59 07/01/18 21:54 Sodium Chloride 1,000 ml @ 100 mls/hr Q10H IVLG 07/01/18 14:46 07/31/18 14:45 07/01/18 21:53 Vancomycin HCl (Vanco rx to dose) 1 ea DAILY PRN MISC Per rx protocol 07/01/18 14:45 07/31/18 14:44 Assessment/Plan Status: deteriorating Assessment/Plan: Assessment/Plan Assessment/Plan: #Acute metabolic encephalopathy #Septic shock suspected to be due to infected pressure ulcers #Acute metabolic encephalopathy #Functional quadriplegia #Sacral pressure ulcers,present on admission #DARRIAN secondary to ATN #Hyponatremia #Hypotension #Type 2 NSTEMI from demand ischemia from septic shock # Diabetes # Hx of stroke Elevated troponin -Continue to trend -Etiology likely sepsis -Defer cardiac cath or stress test at this time Hypotension -Continue pressors, wean as tolerated -Add midodrine prn -IV fluids DM -Insulin sliding scale Hypertension -Hold medications Hyperlipidemia -statin sacral uler -surgery consult Inocente Ponce MD July 01, 2018 23:00
--- NOTE | 2018-07-01 23:30 | Consultation ---
DATE OF CONSULTATION: 07/01/2018 INFECTIOUS DISEASE CONSULTATION CONSULTING PHYSICIAN: Gwendolyn Marquez M.D. ATTENDING PHYSICIAN: David Lindsey M.D. REFERRING PHYSICIAN: Dr. Reginald Robbins. REASON FOR CONSULTATION: Sepsis shock, possible sacral wound infection, and urinary tract infection. CHIEF COMPLAINT: The patient's chief complaint coming in to the hospital is altered mental status and sepsis shock. HISTORY OF PRESENT ILLNESS: This is a 62-year-old male, who has history of multiple medical problems, who I saw in the emergency room at [facility]. The patient is requiring pressors and septic shock with elevated white count. The patient has urinary tract infection, possible sacral wound infection. Infectious Disease consultation is requested for antibiotic management. The patient has been placed on vancomycin and Zosyn. Cultures are pending at this time. Blood and urine cultures have been ordered. The patient will be transferred I believe to the ICU. The patient will continue vancomycin and Zosyn for now. REVIEW OF SYSTEMS: CONSTITUTIONAL: The patient has a Naik. He is on pressors. He is not a very good historian. CARDIAC: He is on pressors. GASTROINTESTINAL: No nausea, vomiting, or diarrhea. GENITOURINARY: He has a Naik. PULMONARY: Mild cough and congestion. SKIN: He has sacral wound. NEUROLOGIC: No seizures, generalized fatigue, weakness, and not a very good historian. PAST MEDICAL HISTORY: The patient's past medical history is extensive. He has a past medical history of the following. The patient has a past medical history of diabetes, dysphagia, history of hyperlipidemia, history of osteoarthritis, hypertension, polyneuropathy, transient ischemic attack, history of cerebral infarction, history of UTIs, history of sepsis, history of encephalopathy, altered mental status, history of hemiplegia, history of hypoxia, failure to thrive, obesity, G-tube, dysphagia, hypercholesteremia, and CVA. MEDICATIONS: Upon reviewing the MAR, the patient is on the following medications. The patient is on Zosyn, chlorhexidine, albuterol treatment, Zofran, acetaminophen, and intravenous fluids. He is on vancomycin, Zosyn, and norepinephrine. Outside medications were noted and reconciliated. ALLERGIES: No known drug allergies. No antibiotic allergies. SOCIAL HISTORY: Negative for smoking, alcohol, or drug abuse. FAMILY HISTORY: Noncontributory. PHYSICAL EXAM: VITAL SIGNS: Blood pressure 92/46, was as low as 81/50 earlier. Temperature is 102.6, pulse rate 145, and respiratory rate 16. T-max 102.6 and saturation 98%. He is on pressors. GENERAL: Weak and opens eyes. HEAD AND NECK: Oral exam, no thrush. Eye exam, no icterus. Normocephalic. Neck is supple. LUNGS: Few bilateral rhonchi and crackles. No definite rales. HEART: Regular. No obvious gallop or murmur. ABDOMEN: Soft. Positive bowel sounds. SKIN: No rash. He has a sacral wound. MUSCULOSKELETAL: No effusion. Sacral wound at this time is covered. I do not have pictures. He has been in the ER. It is difficult to turn him over. Legs are without cellulitis. PERIPHERAL VASCULAR: No cyanosis or gangrene. GENITOURINARY: He has a Naik. Urine is cloudy. LINE SITES: Without phlebitis. NEUROLOGIC: Generalized weakness. Not a very good historian. LABORATORY DATA: Laboratory data is as follows. White count 29.4 and hemoglobin 11.6. Creatinine is 1.9. LFTs were noted. Urinalysis had 3+ leukocyte esterase and 30 to 40 white blood cells, many bacteria. Cultures are pending. Chest x-ray showed possible mild interstitial edema. No focal consolidation. Cultures and chest x-ray have been ordered again. ASSESSMENT AND PLAN: 1. The patient has sepsis shock requiring pressors. He has elevated white count, fevers, SIRS criteria, and likely has urinary tract infection with sepsis shock. Chest x-ray with edema. The patient also could have sacral wound infection. At this time, we will continue broad-spectrum antibiotics, vancomycin, and Zosyn for MRSA gram-negative coverage. Continue vancomycin and Zosyn for sepsis shock, urinary tract infection, possible sacral wound infection, leukocytosis, and fevers. Check cultures. Follow up on chest x-ray and surgical evaluation of the sacral wound. 2. Acute kidney injury with elevated creatinine. 3. Anemia. 4. Diabetes. 5. Hypertension. 6. Hyperlipidemia. 7. Blood sugar and blood pressure treatment primary for diabetes and hypertension. 8. CVA. 9. TIA. 10. Weakness. 11. Skin care protocol. 12. Gastroesophageal reflux disease. 13. Quadriplegia. 14. Dysphagia. 15. Dyslipidemia. 16. No known allergies. 17. Social history is negative. 18. Family history is noncontributory. 19. MAR was noted. 20. Case was discussed with RN. 21. Past medical history is noted. 22. Continue treatment per primary consultants. Gwendolyn Marquez M.D. DR: REMINGTON JOB#: [id number] CC:
[2018-07-02] VITALS (48 sets, daily range): BP systolic 89–119; BP diastolic 50–74
--- NOTE | 2018-07-02 00:10 | NUR ---
NURSE NOTES: ASLEEP STATUS.
--- NOTE | 2018-07-02 01:28 | Consultation ---
History of Present Illness General Date patient seen: July 02, 2018 Chief Complaint: Altered Level of Consciousness Referring physician: Dr. Robbins Present Illness HPI Gerard Kirk is a 62-year-old male, nursing facility patient with a history of CVA, diabetes, prior tracheostomy, functional quadriplegia, dysphagia, hyperlipidemia and recent admission in April with aspiration pneumonia. He now presents from his SNF with increased alteration in mental status, hypotension, and increased respiratory secretions. In the ED, he was found to be febrile and required pressor support for his blood pressure. He is on CPAP mask at time of his assessment in ICU but is intermittently following command as able with LUE and W/D in BLE. No response in his RUE- this may be his baseline given functional quadriplegia Allergies: Coded Allergies: No Known Allergies (Unverified , 09/29/17) Medication History Scheduled Amoxicillin/Potassium Clav 875-125* (Augmentin 875-125 Tablet*), 1 TAB GT TWICE A DAY Docusate Sodium* (Colace*), 100 MG ORAL DAILY, (Reported) Magnesium Hydroxide* (Milk Of Magnesia*), 30 ML ORAL DAILY, (Reported) Midodrine* (Proamatine*), 10 MG ORAL THREE TIMES A DAY, (Reported) Na Phos,M-B/Na Phos,Di-Ba* (Fleet Enema*), 133 ML RECTAL DAILY, (Reported) Pantoprazole* (Pantoprazole*), 40 MG ORAL DAILY, (Reported) Trimethoprim/Sulfamethoxazole 160/800* (Bactrim Ds Tablet*), 2 TAB GT Q12H Zinc Sulfate (Zinc Sulfate*), 220 MG ORAL DAILY, (Reported) Scheduled PRN Acetaminophen (Tylenol), 650 MG ORAL Q6H PRN for Prn Pain/Headache/Temp > 101, ( Reported) Miscellaneous Medications Bisacodyl (Dulcolax), 10 MG RC, (Reported) Ipratropium Crocheron (Ipratropium Crocheron), 15 ML NS, (Reported) Ipratropium/Albuterol Sulfate (DuoNeb 0.5-3(2.5)mg/3ml), 3 ML HHN, (Reported) Sennosides (Senna), 8.6 MG PO, (Reported) Patient History Limited by: medical condition History Provided By: Medical Record Healthcare decision maker harry kirk Resuscitation status Full Code Advanced Directive on File No Review of Systems All Other Systems: negative except mentioned in HPI ROS Narrative Unable to report Physical Exam General Appearance: lethargic, other Lines, tubes and drains: peripheral, other HEENT: normocephalic, atraumatic, anicteric, mucous membranes moist, PERRL Neck: normal alignment Skin Exam: normal pigmentation, warm/dry Neurologic: aphasia, other Last 24 Hour Vital Signs Date Time Temp Pulse Resp B/P (MAP) Pulse Ox O2 Delivery O2 Flow Rate FiO2 07/02/18 01:21 102 24 99 Facial 40 07/02/18 01:00 104 26 105/67 (80) 98 07/02/18 00:30 104 25 107/71 (83) 98 07/02/18 00:00 98.5 103 26 108/72 (84) 98 07/01/18 23:30 104 26 114/67 (83) 98 07/01/18 23:05 103 28 99 Facial 40 07/01/18 23:00 104 25 113/64 (80) 99 07/01/18 22:35 112/67 07/01/18 22:30 105 26 112/67 (82) 98 07/01/18 22:00 107 28 104/72 (83) 98 07/01/18 21:30 108 24 103/68 (80) 98 07/01/18 21:03 106 28 99 Facial 40 07/01/18 21:00 106 27 103/68 (80) 98 07/01/18 20:56 40 07/01/18 20:45 109 30 100/65 (77) 99 07/01/18 20:30 108 18 100/65 (77) 99 07/01/18 20:15 107 07/01/18 20:15 98.6 107 20 116/65 (82) 97 07/01/18 20:14 98.7 104 34 120/67 100 Bi-pap 40 07/01/18 20:00 98.5 105 38 129/50 100 Bi-pap 40 07/01/18 19:54 116 32 95 Facial 40 07/01/18 19:25 40 07/01/18 19:20 118 40 Bi-pap 07/01/18 19:10 98.9 110 35 122/55 98 Bi-pap 40 07/01/18 19:01 128/71 07/01/18 18:15 120 39 95 Facial 40 07/01/18 18:10 98.7 118 40 110/48 96 Bi-pap 40 07/01/18 18:05 114/61 07/01/18 17:35 108/76 07/01/18 17:05 126/38 07/01/18 16:35 101/54 07/01/18 16:26 119 27 95 Room Air 21 07/01/18 16:10 118 30 94 Room Air 21 07/01/18 16:10 118 30 Room Air 21 07/01/18 16:05 113/46 07/01/18 15:50 109/61 07/01/18 15:35 113/46 07/01/18 15:30 100/24 07/01/18 15:25 98/52 07/01/18 15:20 92/50 07/01/18 15:15 87/42 07/01/18 15:10 87/45 07/01/18 15:05 89/56 07/01/18 15:00 86/49 07/01/18 15:00 100.5 118 38 86/49 98 Room Air 07/01/18 15:00 118 38 Room Air 07/01/18 14:42 92/46 07/01/18 14:27 100/59 07/01/18 14:12 92/46 07/01/18 14:07 88/50 07/01/18 14:02 83/48 07/01/18 13:57 81/50 07/01/18 13:52 77/50 07/01/18 13:47 68/51 07/01/18 12:31 145 16 Room Air 07/01/18 12:31 102.6 145 16 69/52 98 Room Air 07/01/18 10:41 102.6 148 16 98 Room Air Intake and Output 07/01/18 07/02/18 19:00 07:00 Intake Total 2660 ml 2927.5 ml Output Total 2200 ml Balance 2660 ml 727.5 ml Intake IV Total 2660 ml 2927.5 ml Output Urine Total 2200 ml Laboratory Tests Test 07/01/18 11:00 07/01/18 12:05 07/01/18 16:20 07/01/18 18:09 White Blood Count 29.4 K/UL (4.8-10.8) *H Red Blood Count 4.91 M/UL (4.70-6.10) Hemoglobin 11.6 G/DL (14.2-18.0) L Hematocrit 37.5 % (42.0-52.0) L Mean Corpuscular Volume 76 FL (80-99) L Mean Corpuscular Hemoglobin 23.6 PG (27.0-31.0) L Mean Corpuscular Hemoglobin Concent 30.9 G/DL (32.0-36.0) L Red Cell Distribution Width 18.1 % (11.6-14.8) H Platelet Count 330 K/UL (150-450) Mean Platelet Volume 7.2 FL (6.5-10.1) Neutrophils (%) (Auto) % (45.0-75.0) Lymphocytes (%) (Auto) % (20.0-45.0) Monocytes (%) (Auto) % (1.0-10.0) Eosinophils (%) (Auto) % (0.0-3.0) Basophils (%) (Auto) % (0.0-2.0) Differential Total Cells Counted 100 Neutrophils % (Manual) 63 % (45-75) Lymphocytes % (Manual) 4 % (20-45) L Monocytes % (Manual) 5 % (1-10) Eosinophils % (Manual) 1 % (0-3) Basophils % (Manual) 0 % (0-2) Metamyelocytes % 1 % (0-0) H Myelocytes % 1 % (0-0) H Band Neutrophils 25 % (0-8) H Platelet Estimate Adequate Platelet Morphology See comment Giant Platelets Rare Hypochromasia 2+ Anisocytosis 2+ Microcytosis 2+ Prothrombin Time 13.1 SEC (9.30-11.50) H Prothromb Time International Ratio 1.3 (0.9-1.1) H Activated Partial Thromboplast Time 34 SEC (23-33) H Urine Color Yellow Urine Appearance Very cloudy Urine pH 8 (4.5-8.0) Urine Specific [place] 1.010 (1.005-1.035) Urine Protein 3+ (NEGATIVE) H Urine Glucose (UA) Negative (NEGATIVE) Urine Ketones Negative (NEGATIVE) Urine Blood 5+ (NEGATIVE) H Urine Nitrite Negative (NEGATIVE) Urine Bilirubin Negative (NEGATIVE) Urine Urobilinogen 1 MG/DL (0.0-1.0) H Urine Leukocyte Esterase 3+ (NEGATIVE) H Urine RBC 60-80 /HPF (0 - 0) H Urine WBC 30-40 /HPF (0 - 0) H Urine Squamous Epithelial Cells None /LPF (NONE/OCC) Urine Bacteria Many /HPF (NONE) H Sodium Level 134 MMOL/L (136-145) L Potassium Level 4.1 MMOL/L (3.5-5.1) Chloride Level 98 MMOL/L (98-107) Carbon Dioxide Level 22 MMOL/L (21-32) Anion Gap 14 mmol/L (5-15) Blood Urea Nitrogen 28 mg/dL (7-18) H Creatinine 1.9 MG/DL (0.55-1.30) H Estimat Glomerular Filtration Rate 36.0 mL/min (>60) Glucose Level 180 MG/DL (74-106) H Lactic Acid Level 9.20 mmol/L (0.4-2.0) H 8.50 mmol/L (0.66-2.22) H Calcium Level 9.2 MG/DL (8.5-10.1) Phosphorus Level 2.1 MG/DL (2.5-4.9) L Magnesium Level 1.7 MG/DL (1.8-2.4) L Total Bilirubin 0.3 MG/DL (0.2-1.0) Aspartate Amino Transf (AST/SGOT) 49 U/L (15-37) H Alanine Aminotransferase (ALT/SGPT) 17 U/L (12-78) Alkaline Phosphatase 109 U/L (46-116) Total Creatine Kinase 734 U/L (26-308) H Creatine Kinase MB 10.4 NG/ML (0.0-3.6) H Creatine Kinase MB Relative Index 1.4 Troponin I 0.700 ng/mL (0.000-0.056) Total Protein 8.5 G/DL (6.4-8.2) H Albumin 1.9 G/DL (3.4-5.0) L Globulin 6.6 g/dL Albumin/Globulin Ratio 0.3 (1.0-2.7) L Arterial Blood pH 7.409 (7.350-7.450) 7.378 (7.350-7.450) Arterial Blood Partial Pressure CO2 28.4 mmHg (35.0-45.0) L 31.9 mmHg (35.0-45.0) L Arterial Blood Partial Pressure O2 85.2 mmHg (75.0-100.0) 88.9 mmHg (75.0-100.0) Arterial Blood HCO3 17.6 mmol/L (22.0-26.0) *L 18.4 mmol/L (22.0-26.0) L Arterial Blood Oxygen Saturation 95.8 % (95-100) 96.4 % (95-100) Arterial Blood Base Excess -6.0 (-2-2) L -5.9 (-2-2) L Richi Test Positive Positive Test 07/01/18 21:10 07/01/18 23:40 Lactic Acid Level 3.90 mmol/L (0.4-2.0) H 2.60 mmol/L (0.66-2.22) H Height (Feet): 5 Height (Inches): 8.00 Weight (Pounds): 170 Medications Current Medications Medications (Trade) Dose Ordered Sig/Patience Route PRN Reason Start Time Stop Time Status Last Admin Dose Admin Acetaminophen (Tylenol) 650 mg Q4H PRN RECTAL FEVER 07/01/18 14:45 07/31/18 14:44 Albuterol/ Ipratropium (Albuterol/ Ipratropium) 3 ml Q4H PRN HHN Shortness of Breath 07/01/18 14:45 07/06/18 14:44 Chlorhexidine Gluconate (Cristine-Hex 2%) 1 applic DAILY@2000 TOPIC 07/01/18 20:00 07/31/18 19:59 07/01/18 21:51 Dextrose (Dextrose 50%) 25 ml Q30M PRN IV Hypoglycemia 07/01/18 14:45 07/31/18 14:44 Dextrose (Dextrose 50%) 50 ml Q30M PRN IV Hypoglycemia 07/01/18 14:45 07/31/18 14:44 Heparin Sodium (Porcine) (Heparin 5000 units/ml) 5,000 units EVERY 12 HOURS SUBQ 07/01/18 21:00 07/31/18 20:59 07/01/18 21:52 Norepinephrine Bitartrate 4 mg/ Dextrose 250 ml @ 0 mls/hr Q24H IV 07/01/18 22:00 07/31/18 21:59 07/01/18 22:35 Ondansetron HCl (Zofran) 4 mg Q6H PRN IVP Nausea & Vomiting 07/01/18 14:45 07/31/18 14:44 07/01/18 18:23 Piperacillin Sod/ Tazobactam Sod 3.375 gm/Sodium Chloride 110 ml @ 27.5 mls/hr EVERY 8 HOURS IVPB 07/01/18 22:00 07/06/18 21:59 07/01/18 21:54 Sodium Chloride 1,000 ml @ 100 mls/hr Q10H IVLG 07/01/18 14:46 07/31/18 14:45 07/01/18 21:53 Vancomycin HCl (Vanco rx to dose) 1 ea DAILY PRN MISC Per rx protocol 07/01/18 14:45 07/31/18 14:44 Objective Narrative He is on CPAP mask at time of his assessment in ICU but is intermittently following command as able with LUE and W/D in BLE. No response in his RUE- this may be his baseline given functional quadriplegia Assessment/Plan Problem List: (1) Acute encephalopathy ICD Codes: G93.40 - Encephalopathy, unspecified SNOMED: 42945816, 410992668 (2) Sepsis ICD Codes: A41.9 - Sepsis, unspecified organism SNOMED: 02621060 (3) Non-STEMI (non-ST elevated myocardial infarction) ICD Codes: I21.4 - Non-ST elevation (NSTEMI) myocardial infarction SNOMED: 43833808 (4) Fever ICD Codes: R50.9 - Fever, unspecified SNOMED: 252244607 Assessment/Plan: Empiric antibiotics as per ID Maintain MAP> 70 Septic Shock - for adequate cerebral perfusion Continue IVF/ Pressors as needed Q2 hr Neuro Checks CT Brain W/O Contrast with plan for MRI if negative to rule out acute CVA Maintain Na 135-145 Maintain normothermia Continue ventilatory support/ wean pressors and vent as able. Replete/ Correct Lytes Track / Trend LFTs, BUN/Cr, CBC, CMP Maintain normoglycemia with ISS Katlin Stokes N.PHammad July 02, 2018 01:28
--- NOTE | 2018-07-02 02:00 | NUR ---
NURSE NOTES: SEEN THE PATIENT BY ABDOUL/NURSING PROGRAM CHAIR, MADE NEW ORDER.
--- NOTE | 2018-07-02 04:20 | NUR ---
NURSE NOTES: MORNING CARE WAS DONE, NO BOWEL MOVEMENT.
[2018-07-02 05:05] LABS: HEMATOCRIT 31.3 % (42.0-52.0); HEMOGLOBIN 9.8 G/DL (14.2-18.0); MEAN CORPUSCULAR VOLUME 76 FL (80-99); PLATELET COUNT 373 K/UL (150-450); RED BLOOD COUNT 4.14 M/UL (4.70-6.10); RED CELL DISTRIBUTION WIDTH 18.3 % (11.6-14.8)
[2018-07-02 05:14] LABS: WHITE BLOOD COUNT 43.3 K/UL (4.8-10.8)
[2018-07-02 05:27] LABS: ALANINE AMINOTRANSFERASE 26 U/L (12-78); ALBUMIN 1.5 G/DL (3.4-5.0); ALKALINE PHOSPHATASE 95 U/L (46-116); ANION GAP 9 mmol/L (5-15); ASPARTATE AMINO TRANSFERASE 68 U/L (15-37); BILIRUBIN,DIRECT 0.2 MG/DL (0.0-0.3); BILIRUBIN,TOTAL 0.5 MG/DL (0.2-1.0); BLOOD UREA NITROGEN 29 mg/dL (7-18); CALCIUM 8.2 MG/DL (8.5-10.1); CARBON DIOXIDE 24 MMOL/L (21-32); CHLORIDE 103 MMOL/L (98-107); CREATININE 1.3 MG/DL (0.55-1.30); POTASSIUM 3.8 MMOL/L (3.5-5.1); SODIUM 136 MMOL/L (136-145)
--- NOTE | 2018-07-02 05:38 | NUR ---
RESPIRATORY NOTE: Received patient in ER by previous RT on bipap setting of 12/5 40% facial mask sating 100%. As I assessed the patient I noticed an open stoma. It was covered with gauze to avoid a leak. Patient was in no distress. ABG was drawn and PH was in normal limits but CO2 was low. Patient was transferred to ICU. Patient remains on the Bipap with current settings and in no distress. Will continue to monitor.
[2018-07-02] MEDS: Piperacillin/Tazobactam 3.375 GM in NS 110 ML IVPB SCH ×3 (05:50→22:26)
--- NOTE | 2018-07-02 06:54 | NUR ---
NURSE NOTES: PATIENT ASLEEP STATUS, ONGOING LEVOPHED 10MCG/MIN VIA PICC LINE, WILL CONTINUE PLAN OF CARE.
--- NOTE | 2018-07-02 07:02 | NUR ---
RESPIRATORY NOTE: Received pt on Bipap 12/5-40% FiO2- back up rate 16, saturates at 98%. Pt has a open stoma, covered by dressing, no redness, no bleeding/drainage noted. Alarms are set and audible, Bipap is plugged into red outlet, ambubag at bedside. Pt in no apparent distress at this time. Will continue to monitor pt.
--- NOTE | 2018-07-02 07:33 | NUR ---
HAND-OFF: Report given to MARIA ELENA RAMOS.
--- NOTE | 2018-07-02 07:34 | NUR ---
NURSE NOTES: Report received from Tesfaye Bell RN. Pt is sleeping in bed. Able to wake up to tactile stimuli. Pt is oriented to name. Afebrile. Sinus tachy with PVCs on surveillance monitor. Bi-pap 12/5, 40%. O2 sat 98%. No respiratory distress noted. Old trach site covered with dressing. G-tube in place and kept patient NPO as per order. Naik in place draining to gravity. Dressing on sacrum and left lower extremity, right ankle, and bilateral heels dry and intact. Awaiting for special mattress to arrive. Right UA PICC line patent and asymptomatic. NS is running at 100cc/hr and Levophed at 10mcg/min. Bed in lowest position. Side rails up x3. Will resume plan of care.
[2018-07-02] MEDS ORDERED: DUONEB 0.5-3(2.53 ML HHN (07:58)
[2018-07-02] MEDS ORDERED: Amikacin Rx to dose MISC PRN (08:15)
--- NOTE | 2018-07-02 08:32 | NUR ---
RADIOLOGY DEPT. , CHEST X-RAY DONE.-P.DYE
[2018-07-02] MEDS: Heparin 5000 units/ml inj SUBQ SCH ×2 (08:40→20:45)
--- NOTE | 2018-07-02 09:45 | NUR ---
RESPIRATORY NOTE: Pt off Bipap per Dr. Dacosta's order. Pt is on 5L NC 40% FiO2, saturates at 97%, pt is tolerating well, RR 25bpm, HR 110bpm, no resp distress noted. Bipap is standby, ABG in 1 hour. Will continue to monitor pt.
--- NOTE | 2018-07-02 09:54 | NUR ---
NURSE NOTES: Wound care nurse assessed wound at bedside. Dressing applied as per protocol by wound care nurse. Dr Dacosta at bedside, assessing the patient. Updated him with pt's current condition, including wound. Order to remove Bi-pap and get an ABG in hour received, noted, and carried out. Notified RT.
[2018-07-02] MEDS ORDERED: Amikacin 1,000 MG in NS 110 ML IV SCH (10:00)
--- NOTE | 2018-07-02 10:00 | Pulmonolgy Critical Care Note ---
Critical Care - Asmt/Plan Assessment/Plan: 1. Shock/sepsis. 2. Scattered bilateral interstitial opacities, possible multilobar pneumonia. 3. Urinary tract infection. 4. History of MRSA pneumonia in the past. 5. Acute kidney injury. 6. Lactic acidosis. 7. Non ST-elevation myocardial infarction/troponinemia, likely demand ischemia. 8. Protein-calorie malnutrition. 9. Bacteremia 10. group home resident. 11. 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 12. History of tracheostomy in the past. 13. Dysphagia, status post G-tube treatment. Plan: -stop BiPAP, ABG in one hour -Abx per ID -f/u cultures and sensitivities -wean pressors -wound care Respiratory: ABG, other - Remove from BiPAP, ABG one hour after Cardiac: continue pressors Renal: F/U I&O, keep IV fluid Infectious Disease: continue antibiotics Hematologic: monitor H/H Neurologic: keep patient comfortable Time Spent (Minutes): 40 - cc Discussed with: nurses Critical Care - Objective Last 24 Hour Vital Signs Date Time Temp Pulse Resp B/P (MAP) Pulse Ox O2 Delivery O2 Flow Rate FiO2 07/02/18 09:00 103 23 94/61 (72) 98 07/02/18 08:58 109 25 96 Facial 40 07/02/18 08:47 101/65 07/02/18 08:30 107 23 100/62 (75) 98 07/02/18 08:00 40 07/02/18 08:00 110 23 105/67 (80) 98 07/02/18 08:00 Bi-pap 07/02/18 07:30 98.2 108 24 113/66 (82) 98 07/02/18 07:02 105 22 98 Facial 40 07/02/18 07:00 98/62 07/02/18 07:00 104 24 98/62 (74) 98 07/02/18 06:30 108 25 108/66 (80) 98 07/02/18 06:00 110 25 100/63 (75) 97 07/02/18 06:00 100/63 07/02/18 05:30 114 32 103/66 (78) 98 07/02/18 05:14 103 19 97 Facial 40 07/02/18 05:00 103 26 93/63 (73) 96 07/02/18 05:00 93/63 07/02/18 04:30 110 27 103/66 (78) 100 07/02/18 04:00 40 07/02/18 04:00 98.5 112 27 111/71 (84) 97 07/02/18 04:00 Bi-pap 07/02/18 04:00 111/71 07/02/18 03:30 106 25 110/68 (82) 99 07/02/18 03:11 104 27 99 Facial 40 07/02/18 03:01 105 07/02/18 03:00 115/68 07/02/18 03:00 103 27 115/68 (84) 98 07/02/18 02:30 108/68 07/02/18 02:30 102 23 106/74 (85) 99 07/02/18 02:00 119/68 07/02/18 02:00 103 27 119/68 (85) 98 07/02/18 01:30 102 24 109/70 (83) 98 07/02/18 01:21 102 24 99 Facial 40 07/02/18 01:00 104 26 105/67 (80) 98 07/02/18 01:00 117/86 07/02/18 00:30 104 25 107/71 (83) 98 07/02/18 00:00 117/87 07/02/18 00:00 Bi-pap 07/02/18 00:00 98.5 103 26 108/72 (84) 98 07/02/18 00:00 103 07/01/18 23:30 104 26 114/67 (83) 98 07/01/18 23:05 103 28 99 Facial 40 07/01/18 23:00 134/47 07/01/18 23:00 104 25 113/64 (80) 99 07/01/18 22:35 112/67 07/01/18 22:30 105 26 112/67 (82) 98 07/01/18 22:00 107 28 104/72 (83) 98 07/01/18 21:30 108 24 103/68 (80) 98 07/01/18 21:03 106 28 99 Facial 40 07/01/18 21:00 106 27 103/68 (80) 98 07/01/18 20:56 40 07/01/18 20:56 Bi-pap Bi-pap 07/01/18 20:45 109 30 100/65 (77) 99 07/01/18 20:30 108 18 100/65 (77) 99 07/01/18 20:15 107 07/01/18 20:15 98.6 107 20 116/65 (82) 97 07/01/18 20:14 98.7 104 34 120/67 100 Bi-pap 40 07/01/18 20:00 98.5 105 38 129/50 100 Bi-pap 40 07/01/18 19:54 116 32 95 Facial 40 07/01/18 19:25 40 07/01/18 19:20 118 40 Bi-pap 07/01/18 19:10 98.9 110 35 122/55 98 Bi-pap 40 07/01/18 19:01 128/71 07/01/18 18:15 120 39 95 Facial 40 07/01/18 18:10 98.7 118 40 110/48 96 Bi-pap 40 07/01/18 18:05 114/61 07/01/18 17:35 108/76 07/01/18 17:05 126/38 07/01/18 16:35 101/54 07/01/18 16:26 119 27 95 Room Air 21 07/01/18 16:10 118 30 94 Room Air 21 07/01/18 16:10 118 30 Room Air 21 07/01/18 16:05 113/46 07/01/18 15:50 109/61 07/01/18 15:35 113/46 07/01/18 15:30 100/24 07/01/18 15:25 98/52 07/01/18 15:20 92/50 07/01/18 15:15 87/42 07/01/18 15:10 87/45 07/01/18 15:05 89/56 07/01/18 15:00 86/49 07/01/18 15:00 100.5 118 38 86/49 98 Room Air 07/01/18 15:00 118 38 Room Air 07/01/18 14:42 101.0 124 30 92/46 96 Room Air 07/01/18 14:42 92/46 07/01/18 14:27 101.5 122 32 100/59 96 Room Air 07/01/18 14:27 100/59 07/01/18 14:12 92/46 07/01/18 14:12 92/46 07/01/18 14:07 88/50 07/01/18 14:07 88/50 07/01/18 14:02 83/48 07/01/18 14:02 83/48 07/01/18 13:57 81/50 07/01/18 13:57 81/50 07/01/18 13:52 122 34 80/45 94 Room Air 07/01/18 13:52 77/50 07/01/18 13:47 124 37 77/50 94 Room Air 07/01/18 13:47 68/51 07/01/18 13:00 101.5 140 32 80/50 96 Room Air 07/01/18 12:31 145 16 Room Air 07/01/18 12:31 102.6 145 16 69/52 98 Room Air 07/01/18 10:41 102.6 148 16 98 Room Air Status: awake Condition: improving HEENT: atraumatic Lungs: clear Heart: HR/BP stable Abdomen: soft, non-tender Extremities: no C/C/E Micro: Microbiology Date/Time Source Procedure Growth Status 07/01/18 11:00 Blood Blood Culture - Preliminary Resulted 07/01/18 11:00 Urine,Clean Catch Urine Culture - Preliminary Gram Negative Keo Resulted 07/01/18 20:00 Rectum Received Critical Care - Subjective ROS Limited/Unobtainable: Yes Interval Events: Has been on continuous bipap. Alert. Bacteremia noted. Wound noted to be clean. Condition: stable EKG Rhythm: Sinus Rhythm FI02: 40 Vent Support Mode: BiLevel Sputum Amount: None I&O: Intake and Output 07/01/18 07/02/18 19:00 07:00 Intake Total 2660 ml 4290.5 ml Output Total 3210 ml Balance 2660 ml 1080.5 ml Intake IV Total 2660 ml 4290.5 ml Output Urine Total 3210 ml Fred Dacosta MD July 02, 2018 10:00
--- NOTE | 2018-07-02 10:47 | NUR ---
[employer] 62 Y/O MALE BIBA FROM [facility] [place] [facility] [place] CC:ALOC SI:FEVER . SEPTIC SHOCK . NSTEMI VS: BP 69/52, P 148, T 102.5, RR 40, SpO2 98 Bi-pap FiO2 40 WBC 43.3, RBC 4.14, H&H 9.8/31.3, BUN 29, TROPONIN 0.127, URINE: Many, Protein 3+, Blood 5+ CXR: Query mild interstitial edema. IS:ALBUTEROLM 3ml HHN ZOSYN 110ml IVPB NS x 2,300ml IVLG VANCOMYCIN 275ml IVPB NOREPINEPHRINE 250ml IV ZOFRAN 4mg IVP PICC LINE INSERTION 07/01 ADMITTED TO ICU DCP: RETURN TO [facility]
--- NOTE | 2018-07-02 10:51 | General Progress Note ---
Assessment/Plan Status: deteriorating Assessment/Plan: #Acute metabolic encephalopathy #Septic shock suspected to be due to infected pressure ulcers #Gram negative bacteremia #Acute metabolic encephalopathy #Functional quadriplegia #Sacral pressure ulcers,present on admission -continue ICU level of care while on Levophed -Antibiotics broadened as per ID recs - added amikacin, monitor drug levels and renal function -check CT A/P -check stool C. difficile -continue IV fluids -monitor daily labs -Supportive care -Fall precautions -Aspiration precautions -Surgical consult for pressure ulcers #DARRIAN secondary to ATN #Hyponatremia #Hypomagnesemia -improved renal function today -continue IV hydration and treatment of sepsis -replace electrolytes prn -Nephrology following #Hypotension #Type 2 NSTEMI from demand ischemia from septic shock -continue supportive care -cardiology consult -cardiac monitoring -serial troponin #Type 2 DM, uncontrolled -start ISS VTE PPx Full Code Subjective Date patient seen: July 02, 2018 Time patient seen: 10:45 ROS Limited/Unobtainable: Yes Allergies: Coded Allergies: No Known Allergies (Unverified , 09/29/17) Subjective Medicine followup for septic shock, gram negative bacteremia, acute metabolic encephalopathy, DARRIAN. Patient remains on Levophed. More alert, follows simple commands. Nonverbal (baseline) Objective Last 24 Hour Vital Signs Date Time Temp Pulse Resp B/P (MAP) Pulse Ox O2 Delivery O2 Flow Rate FiO2 07/02/18 09:45 110 25 97 07/02/18 09:00 103 23 94/61 (72) 98 07/02/18 08:58 109 25 96 Facial 40 07/02/18 08:47 101/65 07/02/18 08:30 107 23 100/62 (75) 98 07/02/18 08:00 40 07/02/18 08:00 110 23 105/67 (80) 98 07/02/18 08:00 Bi-pap 07/02/18 07:30 98.2 108 24 113/66 (82) 98 07/02/18 07:02 105 22 98 Facial 40 07/02/18 07:00 98/62 07/02/18 07:00 104 24 98/62 (74) 98 07/02/18 06:30 108 25 108/66 (80) 98 07/02/18 06:00 110 25 100/63 (75) 97 07/02/18 06:00 100/63 07/02/18 05:30 114 32 103/66 (78) 98 07/02/18 05:14 103 19 97 Facial 40 07/02/18 05:00 103 26 93/63 (73) 96 07/02/18 05:00 93/63 07/02/18 04:30 110 27 103/66 (78) 100 07/02/18 04:00 40 07/02/18 04:00 98.5 112 27 111/71 (84) 97 07/02/18 04:00 Bi-pap 07/02/18 04:00 111/71 07/02/18 03:30 106 25 110/68 (82) 99 07/02/18 03:11 104 27 99 Facial 40 07/02/18 03:01 105 07/02/18 03:00 115/68 07/02/18 03:00 103 27 115/68 (84) 98 07/02/18 02:30 108/68 07/02/18 02:30 102 23 106/74 (85) 99 07/02/18 02:00 119/68 07/02/18 02:00 103 27 119/68 (85) 98 07/02/18 01:30 102 24 109/70 (83) 98 07/02/18 01:21 102 24 99 Facial 40 07/02/18 01:00 104 26 105/67 (80) 98 07/02/18 01:00 117/86 07/02/18 00:30 104 25 107/71 (83) 98 07/02/18 00:00 117/87 07/02/18 00:00 Bi-pap 07/02/18 00:00 98.5 103 26 108/72 (84) 98 07/02/18 00:00 103 07/01/18 23:30 104 26 114/67 (83) 98 07/01/18 23:05 103 28 99 Facial 40 07/01/18 23:00 134/47 07/01/18 23:00 104 25 113/64 (80) 99 07/01/18 22:35 112/67 07/01/18 22:30 105 26 112/67 (82) 98 07/01/18 22:00 107 28 104/72 (83) 98 07/01/18 21:30 108 24 103/68 (80) 98 07/01/18 21:03 106 28 99 Facial 40 07/01/18 21:00 106 27 103/68 (80) 98 07/01/18 20:56 40 07/01/18 20:56 Bi-pap Bi-pap 07/01/18 20:45 109 30 100/65 (77) 99 07/01/18 20:30 108 18 100/65 (77) 99 07/01/18 20:15 107 07/01/18 20:15 98.6 107 20 116/65 (82) 97 07/01/18 20:14 98.7 104 34 120/67 100 Bi-pap 40 07/01/18 20:00 98.5 105 38 129/50 100 Bi-pap 40 07/01/18 19:54 116 32 95 Facial 40 07/01/18 19:25 40 07/01/18 19:20 118 40 Bi-pap 07/01/18 19:10 98.9 110 35 122/55 98 Bi-pap 40 07/01/18 19:01 128/71 07/01/18 18:15 120 39 95 Facial 40 07/01/18 18:10 98.7 118 40 110/48 96 Bi-pap 40 07/01/18 18:05 114/61 07/01/18 17:35 108/76 07/01/18 17:05 126/38 07/01/18 16:35 101/54 07/01/18 16:26 119 27 95 Room Air 21 07/01/18 16:10 118 30 94 Room Air 21 07/01/18 16:10 118 30 Room Air 21 07/01/18 16:05 113/46 07/01/18 15:50 109/61 07/01/18 15:35 113/46 07/01/18 15:30 100/24 07/01/18 15:25 98/52 07/01/18 15:20 92/50 07/01/18 15:15 87/42 07/01/18 15:10 87/45 07/01/18 15:05 89/56 07/01/18 15:00 86/49 07/01/18 15:00 100.5 118 38 86/49 98 Room Air 07/01/18 15:00 118 38 Room Air 07/01/18 14:42 101.0 124 30 92/46 96 Room Air 5/2/19 14:42 92/46 07/01/18 14:27 101.5 122 32 100/59 96 Room Air 07/01/18 14:27 100/59 07/01/18 14:12 92/46 07/01/18 14:12 92/46 07/01/18 14:07 88/50 07/01/18 14:07 88/50 07/01/18 14:02 83/48 07/01/18 14:02 83/48 07/01/18 13:57 81/50 07/01/18 13:57 81/50 07/01/18 13:52 122 34 80/45 94 Room Air 07/01/18 13:52 77/50 07/01/18 13:47 124 37 77/50 94 Room Air 07/01/18 13:47 68/51 07/01/18 13:00 101.5 140 32 80/50 96 Room Air 07/01/18 12:31 145 16 Room Air 07/01/18 12:31 102.6 145 16 69/52 98 Room Air Intake and Output 07/01/18 07/02/18 19:00 07:00 Intake Total 2660 ml 4290.5 ml Output Total 3210 ml Balance 2660 ml 1080.5 ml Intake IV Total 2660 ml 4290.5 ml Output Urine Total 3210 ml Laboratory Tests 07/01/18 11:00: White Blood Count 29.4*H, Red Blood Count 4.91, Hemoglobin 11.6L, Hematocrit 37.5L, Mean Corpuscular Volume 76L, Mean Corpuscular Hemoglobin 23.6L, Mean Corpuscular Hemoglobin Concent 30.9L, Red Cell Distribution Width 18.1H, Platelet Count 330, Mean Platelet Volume 7.2, Neutrophils (%) (Auto) , Lymphocytes (%) (Auto) , Monocytes (%) (Auto) , Eosinophils (%) (Auto) , Basophils (%) (Auto) , Differential Total Cells Counted 100, Neutrophils % ( Manual) 63, Lymphocytes % (Manual) 4L, Monocytes % (Manual) 5, Eosinophils % ( Manual) 1, Basophils % (Manual) 0, Metamyelocytes % 1H, Myelocytes % 1H, Band Neutrophils 25H, Platelet Estimate Adequate, Platelet Morphology See comment, Giant Platelets Rare, Hypochromasia 2+, Anisocytosis 2+, Microcytosis 2+, Prothrombin Time 13.1H, Prothromb Time International Ratio 1.3H, Activated Partial Thromboplast Time 34H, Urine Color Yellow, Urine Appearance Very cloudy , Urine pH 8, Urine Specific [place] 1.010, Urine Protein 3+H, Urine Glucose (UA ) Negative, Urine Ketones Negative, Urine Blood 5+H, Urine Nitrite Negative, Urine Bilirubin Negative, Urine Urobilinogen 1H, Urine Leukocyte Esterase 3+H, Urine RBC 60-80H, Urine WBC 30-40H, Urine Squamous Epithelial Cells None, Urine Bacteria ManyH, Sodium Level 134L, Potassium Level 4.1, Chloride Level 98, Carbon Dioxide Level 22, Anion Gap 14, Blood Urea Nitrogen 28H, Creatinine 1.9H , Estimat Glomerular Filtration Rate 36.0, Glucose Level 180H, Lactic Acid Level 9.20H, Calcium Level 9.2, Phosphorus Level 2.1L, Magnesium Level 1.7L, Total Bilirubin 0.3, Aspartate Amino Transf (AST/SGOT) 49H, Alanine Aminotransferase (ALT/SGPT) 17, Alkaline Phosphatase 109, Total Creatine Kinase 734H, Creatine Kinase MB 10.4H, Creatine Kinase MB Relative Index 1.4, Troponin I 0.700H, Total Protein 8.5H, Albumin 1.9L, Globulin 6.6, Albumin/Globulin Ratio 0.3L 07/01/18 12:05: Lactic Acid Level 8.50H 07/01/18 16:20: Arterial Blood pH 7.409, Arterial Blood Partial Pressure CO2 28.4L, Arterial Blood Partial Pressure O2 85.2, Arterial Blood HCO3 17.6*L, Arterial Blood Oxygen Saturation 95.8, Arterial Blood Base Excess -6.0L, Richi Test Positive 07/01/18 18:09: Arterial Blood pH 7.378, Arterial Blood Partial Pressure CO2 31.9L, Arterial Blood Partial Pressure O2 88.9, Arterial Blood HCO3 18.4L, Arterial Blood Oxygen Saturation 96.4, Arterial Blood Base Excess -5.9L, Richi Test Positive 07/01/18 21:10: Lactic Acid Level 3.90H 07/01/18 23:40: Lactic Acid Level 2.60H 07/02/18 04:15: Lactic Acid Level 2.90H, White Blood Count 43.3*H, Red Blood Count 4.14L, Hemoglobin 9.8L, Hematocrit 31.3L, Mean Corpuscular Volume 76L, Mean Corpuscular Hemoglobin 23.6L, Mean Corpuscular Hemoglobin Concent 31.3L, Red Cell Distribution Width 18.3H, Platelet Count 373, Mean Platelet Volume 7.2, Neutrophils (%) (Auto) , Lymphocytes (%) (Auto) , Monocytes (%) (Auto) , Eosinophils (%) (Auto) , Basophils (%) (Auto) , Differential Total Cells Counted 100, Neutrophils % (Manual) 75, Lymphocytes % (Manual) 2L, Monocytes % ( Manual) 3, Eosinophils % (Manual) 0, Basophils % (Manual) 0, Metamyelocytes % 1H , Band Neutrophils 19H, Platelet Estimate Adequate, Platelet Morphology Normal, Hypochromasia 1+, Anisocytosis 1+, Microcytosis 1+, Sodium Level 136, Potassium Level 3.8, Chloride Level 103, Carbon Dioxide Level 24, Anion Gap 9, Blood Urea Nitrogen 29H, Creatinine 1.3, Estimat Glomerular Filtration Rate 55.8, Glucose Level 328#H, Calcium Level 8.2L, Magnesium Level 1.7L, Total Bilirubin 0.5, Direct Bilirubin 0.2, Aspartate Amino Transf (AST/SGOT) 68H, Alanine Aminotransferase (ALT/SGPT) 26, Alkaline Phosphatase 95, Total Protein 7.3, Albumin 1.5L 07/02/18 07:06: Lactic Acid Level 2.60H, Troponin I 0.127H Height (Feet): 5 Height (Inches): 8.00 Weight (Pounds): 170 General Appearance: no apparent distress, alert Neck: normal alignment, supple Cardiovascular: normal rate, regular rhythm Respiratory/Chest: lungs clear, normal breath sounds, no respiratory distress Abdomen: non tender Neurologic: alert, disoriented Reginald Pulido MD July 02, 2018 10:51
--- NOTE | 2018-07-02 11:10 | NUR ---
NURSE NOTES: Placed pt on N/C 3L by RT as per order. Special mattress placed for pressure ulcer. Will notify Dr Dacosta regarding ABG result. O2 sat 98%. No SOB noted. Will continue to monitor.
--- NOTE | 2018-07-02 11:10 | NUR ---
RESPIRATORY NOTE: ABG DONE AND REPORT TO MARIA ELENA MILLARD. VERÓNICA UPPER LOBE RHONCHI DIMINISHED B/S HEARD UPON AUSCULTATION, NASOTRACHEAL SUCTIONED LARGE AMOUNT OF THICK ERNST YELLOW SECRETIONS WITHOUT INCIDENTS. MARIA ELENA MILLARD AT BEDSIDE. TITRATED FiO2 DOWN TO 3L NC POST ABG RESULT, SATURATES AT 98%. NO SOB OR RESP DISTRESS NOTED AT THIS TIME. WILL CONTINUE TO MONITOR.
--- NOTE | 2018-07-02 11:31 | NUR ---
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 2) Swallowing difficulty r/t dysphagia and h/o CVA as evidenced by pt is PEG dep. CURRENT TF:NPO ENTERAL NUTRITION RECOMMENDATIONS: Glucerna 1.5 @55ml/hr x24 hrs to provide 1320ml, 1980 kcal, 109g prot, 1002ml free H2O - With HEMODYNAMIC STABILTY and as medically appropriate , start glucerna 1.5 @ 25ml/hr, advance as tolerated 10ml/hr q 4-6 hrs to goal - Flush per MD. HOB over 30 degrees WITHOUT HEMODYNAMIC STABILITY, rec trophic feeding of Glucerna 1.5 @ 15ml/hr x 24 hrs ADDITIONAL RECOMMENDATIONS: 1) Wound care: add Vit C 500mg QD, Rafael 1pkt BID : TF @ goal will provide 100% RDI 2) Per SNF, pt's HT=5'10", YR=924dpt (obtained 06/12/18) 3) Re-calibrated bedscale wt, weekly wt monitoring 4) Monitor HD stability 5) Monitor lytes, replete as needed (low mag)
--- NOTE | 2018-07-02 11:38 | Diagnostic Imaging Report ---
Indication: Dyspnea Technique: One view of the chest Comparison: 07/01/2018 Findings: There is a band of atelectasis at the left lateral lung base. The lungs and pleural spaces are otherwise clear. The heart size is normal. Impression: Left lateral basilar atelectasis No acute process otherwise
--- NOTE | 2018-07-02 12:04 | Diagnostic Imaging Report ---
Indication: Shortness of breath Technique: One view of the chest Comparison: 07/01/2018 Findings: Lungs and pleural spaces are clear. The heart size is normal. Bones are unremarkable. There is no significant interim change Impression: Negative
[2018-07-02] MEDS: NovoLOG Insulin Flexpen SUBQ SCH ×3 (12:22→20:45)
--- NOTE | 2018-07-02 12:25 | Consultation ---
History of Present Illness General Date patient seen: July 02, 2018 Time patient seen: 12:25 Chief Complaint: Altered Level of Consciousness Reason for Consultation: Acute kidney injury Present Illness HPI 62 year old man with past medical history of diabetes type 2, history of CVA, nonverbal, functional quadriplegia, dysphagia, hyperlipidemia who presented from the facility with confusion worse than baseline along with fever and tachycardia. Patient is unable to provide any information, obtained from ED physician. Patient was noted to be febrile to 102, tachycardic and hypotensive in ED with elevated lactate of 9. Patient referred for admission to ICU for septic shock, source possibly from infected sacral pressure ulcer. Allergies: Coded Allergies: No Known Allergies (Unverified , 09/29/17) Medication History Scheduled Amoxicillin/Potassium Clav 875-125* (Augmentin 875-125 Tablet*), 1 TAB GT TWICE A DAY Docusate Sodium* (Colace*), 100 MG ORAL DAILY, (Reported) Magnesium Hydroxide* (Milk Of Magnesia*), 30 ML ORAL DAILY, (Reported) Midodrine* (Proamatine*), 10 MG ORAL THREE TIMES A DAY, (Reported) Na Phos,M-B/Na Phos,Di-Ba* (Fleet Enema*), 133 ML RECTAL DAILY, (Reported) Pantoprazole* (Pantoprazole*), 40 MG ORAL DAILY, (Reported) Trimethoprim/Sulfamethoxazole 160/800* (Bactrim Ds Tablet*), 2 TAB GT Q12H Zinc Sulfate (Zinc Sulfate*), 220 MG ORAL DAILY, (Reported) Scheduled PRN Acetaminophen (Tylenol), 650 MG ORAL Q6H PRN for Prn Pain/Headache/Temp > 101, ( Reported) Miscellaneous Medications Bisacodyl (Dulcolax), 10 MG RC, (Reported) Ipratropium [place] (Ipratropium [place]), 15 ML NS, (Reported) Ipratropium/Albuterol Sulfate (DuoNeb 0.5-3(2.5)mg/3ml), 3 ML HHN, (Reported) Sennosides (Senna), 8.6 MG PO, (Reported) Patient History Healthcare decision maker harry kirk Resuscitation status Full Code Advanced Directive on File No Past Medical/Surgical History Past Medical/Surgical History: (1) Leukocytosis (2) Non-STEMI (non-ST elevated myocardial infarction) (3) Septic shock (4) Fever (5) Sepsis (6) Acute encephalopathy (7) Sacral decubitus ulcer (8) Altered level of consciousness (9) PEG (percutaneous endoscopic gastrostomy) adjustment/replacement/removal Physical Exam General Appearance: no apparent distress HEENT: normocephalic, atraumatic, EOMI Neck: supple Respiratory/Chest: lungs clear Cardiovascular/Chest: normal peripheral pulses, normal rate, regular rhythm Abdomen: normal bowel sounds Extremities: no edema Musculoskeletal: atrophy Last 24 Hour Vital Signs Date Time Temp Pulse Resp B/P (MAP) Pulse Ox O2 Delivery O2 Flow Rate FiO2 07/02/18 11:30 99 28 99/55 (70) 99 07/02/18 11:10 Nasal Cannula 3.0 32 07/02/18 11:10 98 Nasal Cannula 3.0 32 07/02/18 11:09 111 28 98 07/02/18 11:00 102/62 07/02/18 11:00 111 28 102/62 (75) 99 07/02/18 10:30 106 26 107/66 (80) 99 07/02/18 10:00 110 27 105/58 (74) 98 07/02/18 10:00 105/58 07/02/18 09:45 110 25 97 07/02/18 09:45 3.0 07/02/18 09:30 112 28 103/65 (78) 97 07/02/18 09:00 103 23 94/61 (72) 98 07/02/18 09:00 94/61 07/02/18 08:58 109 25 96 Facial 40 07/02/18 08:47 101/65 07/02/18 08:30 107 23 100/62 (75) 98 07/02/18 08:00 105/67 07/02/18 08:00 40 07/02/18 08:00 110 23 105/67 (80) 98 07/02/18 08:00 Bi-pap 07/02/18 07:36 108 07/02/18 07:30 98.2 108 24 113/66 (82) 98 07/02/18 07:02 105 22 98 Facial 40 07/02/18 07:00 98/62 07/02/18 07:00 104 24 98/62 (74) 98 07/02/18 06:30 108 25 108/66 (80) 98 07/02/18 06:00 110 25 100/63 (75) 97 07/02/18 06:00 100/63 07/02/18 05:30 114 32 103/66 (78) 98 07/02/18 05:14 103 19 97 Facial 40 07/02/18 05:00 103 26 93/63 (73) 96 07/02/18 05:00 93/63 07/02/18 04:30 110 27 103/66 (78) 100 07/02/18 04:00 40 07/02/18 04:00 98.5 112 27 111/71 (84) 97 07/02/18 04:00 Bi-pap 07/02/18 04:00 111/71 07/02/18 03:30 106 25 110/68 (82) 99 07/02/18 03:11 104 27 99 Facial 40 07/02/18 03:01 105 07/02/18 03:00 115/68 07/02/18 03:00 103 27 115/68 (84) 98 07/02/18 02:30 108/68 07/02/18 02:30 102 23 106/74 (85) 99 07/02/18 02:00 119/68 07/02/18 02:00 103 27 119/68 (85) 98 07/02/18 01:30 102 24 109/70 (83) 98 07/02/18 01:21 102 24 99 Facial 40 07/02/18 01:00 104 26 105/67 (80) 98 07/02/18 01:00 117/86 07/02/18 00:30 104 25 107/71 (83) 98 07/02/18 00:00 117/87 07/02/18 00:00 Bi-pap 07/02/18 00:00 98.5 103 26 108/72 (84) 98 07/02/18 00:00 103 07/01/18 23:30 104 26 114/67 (83) 98 07/01/18 23:05 103 28 99 Facial 40 07/01/18 23:00 134/47 07/01/18 23:00 104 25 113/64 (80) 99 07/01/18 22:35 112/67 07/01/18 22:30 105 26 112/67 (82) 98 07/01/18 22:00 107 28 104/72 (83) 98 07/01/18 21:30 108 24 103/68 (80) 98 07/01/18 21:03 106 28 99 Facial 40 07/01/18 21:00 106 27 103/68 (80) 98 07/01/18 20:56 40 07/01/18 20:56 Bi-pap Bi-pap 07/01/18 20:45 109 30 100/65 (77) 99 07/01/18 20:30 108 18 100/65 (77) 99 07/01/18 20:15 107 07/01/18 20:15 98.6 107 20 116/65 (82) 97 07/01/18 20:14 98.7 104 34 120/67 100 Bi-pap 40 07/01/18 20:00 98.5 105 38 129/50 100 Bi-pap 40 07/01/18 19:54 116 32 95 Facial 40 07/01/18 19:25 40 07/01/18 19:20 118 40 Bi-pap 07/01/18 19:10 98.9 110 35 122/55 98 Bi-pap 40 07/01/18 19:01 128/71 07/01/18 18:15 120 39 95 Facial 40 07/01/18 18:10 98.7 118 40 110/48 96 Bi-pap 40 07/01/18 18:05 114/61 07/01/18 17:35 108/76 07/01/18 17:05 126/38 07/01/18 16:35 101/54 07/01/18 16:26 119 27 95 Room Air 21 07/01/18 16:10 118 30 94 Room Air 21 07/01/18 16:10 118 30 Room Air 21 07/01/18 16:05 113/46 07/01/18 15:50 109/61 07/01/18 15:35 113/46 07/01/18 15:30 100/24 07/01/18 15:25 98/52 07/01/18 15:20 92/50 07/01/18 15:15 87/42 07/01/18 15:10 87/45 07/01/18 15:05 89/56 07/01/18 15:00 86/49 07/01/18 15:00 100.5 118 38 86/49 98 Room Air 07/01/18 15:00 118 38 Room Air 07/01/18 14:42 101.0 124 30 92/46 96 Room Air 07/01/18 14:42 92/46 07/01/18 14:27 101.5 122 32 100/59 96 Room Air 07/01/18 14:27 100/59 07/01/18 14:12 92/46 07/01/18 14:12 92/46 07/01/18 14:07 88/50 07/01/18 14:07 88/50 07/01/18 14:02 83/48 07/01/18 14:02 83/48 07/01/18 13:57 81/50 07/01/18 13:57 81/50 07/01/18 13:52 122 34 80/45 94 Room Air 07/01/18 13:52 77/50 07/01/18 13:47 124 37 77/50 94 Room Air 07/01/18 13:47 68/51 07/01/18 13:00 101.5 140 32 80/50 96 Room Air 07/01/18 12:31 145 16 Room Air 07/01/18 12:31 102.6 145 16 69/52 98 Room Air Intake and Output 07/01/18 07/02/18 19:00 07:00 Intake Total 2660 ml 4290.5 ml Output Total 3210 ml Balance 2660 ml 1080.5 ml Intake IV Total 2660 ml 4290.5 ml Output Urine Total 3210 ml Laboratory Tests Test 07/01/18 16:20 07/01/18 18:09 07/01/18 21:10 07/01/18 23:40 Arterial Blood pH 7.409 (7.350-7.450) 7.378 (7.350-7.450) Arterial Blood Partial Pressure CO2 28.4 mmHg (35.0-45.0) L 31.9 mmHg (35.0-45.0) L Arterial Blood Partial Pressure O2 85.2 mmHg (75.0-100.0) 88.9 mmHg (75.0-100.0) Arterial Blood HCO3 17.6 mmol/L (22.0-26.0) *L 18.4 mmol/L (22.0-26.0) L Arterial Blood Oxygen Saturation 95.8 % (95-100) 96.4 % (95-100) Arterial Blood Base Excess -6.0 (-2-2) L -5.9 (-2-2) L Richi Test Positive Positive Lactic Acid Level 3.90 mmol/L (0.4-2.0) H 2.60 mmol/L (0.66-2.22) H Test 07/02/18 04:15 07/02/18 07:06 07/02/18 10:49 07/02/18 11:52 White Blood Count 43.3 K/UL (4.8-10.8) *H Red Blood Count 4.14 M/UL (4.70-6.10) L Hemoglobin 9.8 G/DL (14.2-18.0) L Hematocrit 31.3 % (42.0-52.0) L Mean Corpuscular Volume 76 FL (80-99) L Mean Corpuscular Hemoglobin 23.6 PG (27.0-31.0) L Mean Corpuscular Hemoglobin Concent 31.3 G/DL (32.0-36.0) L Red Cell Distribution Width 18.3 % (11.6-14.8) H Platelet Count 373 K/UL (150-450) Mean Platelet Volume 7.2 FL (6.5-10.1) Neutrophils (%) (Auto) % (45.0-75.0) Lymphocytes (%) (Auto) % (20.0-45.0) Monocytes (%) (Auto) % (1.0-10.0) Eosinophils (%) (Auto) % (0.0-3.0) Basophils (%) (Auto) % (0.0-2.0) Differential Total Cells Counted 100 Neutrophils % (Manual) 75 % (45-75) Lymphocytes % (Manual) 2 % (20-45) L Monocytes % (Manual) 3 % (1-10) Eosinophils % (Manual) 0 % (0-3) Basophils % (Manual) 0 % (0-2) Metamyelocytes % 1 % (0-0) H Band Neutrophils 19 % (0-8) H Platelet Estimate Adequate Platelet Morphology Normal Hypochromasia 1+ Anisocytosis 1+ Microcytosis 1+ Sodium Level 136 MMOL/L (136-145) Potassium Level 3.8 MMOL/L (3.5-5.1) Chloride Level 103 MMOL/L (98-107) Carbon Dioxide Level 24 MMOL/L (21-32) Anion Gap 9 mmol/L (5-15) Blood Urea Nitrogen 29 mg/dL (7-18) H Creatinine 1.3 MG/DL (0.55-1.30) Estimat Glomerular Filtration Rate 55.8 mL/min (>60) Glucose Level 328 MG/DL (74-106) #H Lactic Acid Level 2.90 mmol/L (0.4-2.0) H 2.60 mmol/L (0.66-2.22) H Calcium Level 8.2 MG/DL (8.5-10.1) L Magnesium Level 1.7 MG/DL (1.8-2.4) L Total Bilirubin 0.5 MG/DL (0.2-1.0) Direct Bilirubin 0.2 MG/DL (0.0-0.3) Aspartate Amino Transf (AST/SGOT) 68 U/L (15-37) H Alanine Aminotransferase (ALT/SGPT) 26 U/L (12-78) Alkaline Phosphatase 95 U/L (46-116) Total Protein 7.3 G/DL (6.4-8.2) Albumin 1.5 G/DL (3.4-5.0) L Troponin I 0.127 ng/mL (0.000-0.056) Arterial Blood pH 7.396 (7.350-7.450) Arterial Blood Partial Pressure CO2 36.9 mmHg (35.0-45.0) Arterial Blood Partial Pressure O2 140.0 mmHg (75.0-100.0) H Arterial Blood HCO3 22.1 mmol/L (22.0-26.0) Arterial Blood Oxygen Saturation 98.4 % (95-100) Arterial Blood Base Excess -2.4 (-2-2) L Richi Test Positive Random Vancomycin Level 10.4 ug/mL Microbiology Date/Time Source Procedure Growth Status 07/01/18 20:00 Rectum Received Height (Feet): 5 Height (Inches): 8.00 Weight (Pounds): 170 Medications Current Medications Medications (Trade) Dose Ordered Sig/Patience Route PRN Reason Start Time Stop Time Status Last Admin Dose Admin Acetaminophen (Tylenol) 650 mg Q4H PRN RECTAL FEVER 07/01/18 14:45 07/31/18 14:44 Albuterol/ Ipratropium (Albuterol/ Ipratropium) 3 ml Q4H PRN HHN Shortness of Breath 07/01/18 14:45 07/06/18 14:44 Amikacin Protocol (Amikacin pharmacy to dose) 1 ea DAILY PRN MISC Per rx protocol 07/02/18 08:15 08/01/18 08:14 Amikacin Sulfate 1000 mg/Sodium Chloride 114 ml @ 228 mls/hr Q36H IV 07/02/18 10:00 07/09/18 09:59 07/02/18 11:03 Barium Sulfate (Readi-Cat 2) 450 ml NOW PRN ORAL Radiology Procedure 07/02/18 08:15 07/04/18 08:03 Chlorhexidine Gluconate (Cristine-Hex 2%) 1 applic DAILY@2000 TOPIC 07/01/18 20:00 07/31/18 19:59 07/01/18 21:51 Dextrose (Dextrose 50%) 25 ml Q30M PRN IV Hypoglycemia 07/02/18 10:45 08/01/18 10:44 Dextrose (Dextrose 50%) 50 ml Q30M PRN IV Hypoglycemia 07/02/18 10:45 08/01/18 10:44 Heparin Sodium (Porcine) (Heparin 5000 units/ml) 5,000 units EVERY 12 HOURS SUBQ 07/01/18 21:00 07/31/18 20:59 07/02/18 08:40 Insulin Aspart (NovoLOG) BEFORE MEALS AND HS SUBQ 07/02/18 11:30 08/01/18 11:29 07/02/18 12:22 Norepinephrine Bitartrate 4 mg/ Dextrose 250 ml @ 0 mls/hr Q24H IV 07/01/18 22:00 07/31/18 21:59 07/02/18 08:47 Ondansetron HCl (Zofran) 4 mg Q6H PRN IVP Nausea & Vomiting 07/01/18 14:45 07/31/18 14:44 07/01/18 18:23 Piperacillin Sod/ Tazobactam Sod 3.375 gm/Sodium Chloride 110 ml @ 27.5 mls/hr EVERY 8 HOURS IVPB 07/01/18 22:00 07/06/18 21:59 07/02/18 05:50 Sodium Chloride 1,000 ml @ 100 mls/hr Q10H IVLG 07/01/18 14:46 07/31/18 14:45 07/02/18 08:33 Vancomycin HCl (Vanco rx to dose) 1 ea DAILY PRN MISC Per rx protocol 07/01/18 14:45 07/31/18 14:44 Assessment/Plan Problem List: (1) Acute kidney injury ICD Codes: N17.9 - Acute kidney failure, unspecified SNOMED: 90348491 (2) Non-STEMI (non-ST elevated myocardial infarction) ICD Codes: I21.4 - Non-ST elevation (NSTEMI) myocardial infarction SNOMED: 82457473 (3) Fever ICD Codes: R50.9 - Fever, unspecified SNOMED: 351584729 (4) Sacral decubitus ulcer ICD Codes: L89.159 - Pressure ulcer of sacral region, unspecified stage SNOMED: 141455865 (5) Sepsis ICD Codes: A41.9 - Sepsis, unspecified organism SNOMED: 43660918 (6) Acute encephalopathy ICD Codes: G93.40 - Encephalopathy, unspecified SNOMED: 48691979, 819418007 (7) Septic shock ICD Codes: A41.9 - Sepsis, unspecified organism; R65.21 - Severe sepsis with septic shock SNOMED: 16365216 (8) Leukocytosis ICD Codes: D72.829 - Elevated white blood cell count, unspecified SNOMED: 601845836, 435322383 Assessment/Plan: urine chemistries gente IVF monitor renal function antibiotics maintain MAP > 65 avoid nephrotoxins monitor electrolytes replete magensium trend lactate Latrell Pierre M.D. July 02, 2018 12:25
--- NOTE | 2018-07-02 13:50 | Consultation ---
History of Present Illness General Chief Complaint: Altered Level of Consciousness Reason for Consultation: wound Present Illness HPI 62 year old male well known to me from prior admission who has past medical history of diabetes type 2, history of CVA, nonverbal, functional quadriplegia, dysphagia, hyperlipidemia who presented from the facility with confusion worse than baseline along with fever and tachycardia. Patient is unable to provide any information and chart reviewed. Patient was noted to be febrile to 102, tachycardic and hypotensive in ED with elevated lactate of 9. Admitted to ICU for care. patient seen, chart reviewed, patient examined. Allergies: Coded Allergies: No Known Allergies (Unverified , 09/29/17) Medication History Scheduled Amoxicillin/Potassium Clav 875-125* (Augmentin 875-125 Tablet*), 1 TAB GT TWICE A DAY Docusate Sodium* (Colace*), 100 MG ORAL DAILY, (Reported) Magnesium Hydroxide* (Milk Of Magnesia*), 30 ML ORAL DAILY, (Reported) Midodrine* (Proamatine*), 10 MG ORAL THREE TIMES A DAY, (Reported) Na Phos,M-B/Na Phos,Di-Ba* (Fleet Enema*), 133 ML RECTAL DAILY, (Reported) Pantoprazole* (Pantoprazole*), 40 MG ORAL DAILY, (Reported) Trimethoprim/Sulfamethoxazole 160/800* (Bactrim Ds Tablet*), 2 TAB GT Q12H Zinc Sulfate (Zinc Sulfate*), 220 MG ORAL DAILY, (Reported) Scheduled PRN Acetaminophen (Tylenol), 650 MG ORAL Q6H PRN for Prn Pain/Headache/Temp > 101, ( Reported) Miscellaneous Medications Bisacodyl (Dulcolax), 10 MG RC, (Reported) Ipratropium [place] (Ipratropium [place]), 15 ML NS, (Reported) Ipratropium/Albuterol Sulfate (DuoNeb 0.5-3(2.5)mg/3ml), 3 ML HHN, (Reported) Sennosides (Senna), 8.6 MG PO, (Reported) Patient History Limited by: medical condition History Provided By: Medical Record, PMD Healthcare decision maker harry kirk Resuscitation status Full Code Advanced Directive on File No Past Medical/Surgical History Past Medical/Surgical History: (1) Non-STEMI (non-ST elevated myocardial infarction) (2) Fever (3) Sacral decubitus ulcer (4) Sepsis (5) Acute encephalopathy (6) Septic shock (7) Leukocytosis (8) Acute kidney injury Review of Systems ROS Narrative cannot obtain given medical condition Physical Exam General Appearance: no apparent distress Lines, tubes and drains: peripheral HEENT: mucous membranes moist Neck: normal inspection Respiratory/Chest: no respiratory distress, no accessory muscle use Cardiovascular/Chest: tachycardia Abdomen: soft, no organomegaly, no mass Skin Exam: other Neurologic: other Last 24 Hour Vital Signs Date Time Temp Pulse Resp B/P (MAP) Pulse Ox O2 Delivery O2 Flow Rate FiO2 07/02/18 13:00 104 25 108/66 (80) 98 07/02/18 12:30 104 28 107/66 (80) 98 07/02/18 12:00 97.8 104 27 101/65 (77) 97 07/02/18 12:00 Bi-pap 07/02/18 11:59 105 07/02/18 11:30 99 28 99/55 (70) 99 07/02/18 11:10 Nasal Cannula 3.0 32 07/02/18 11:10 98 Nasal Cannula 3.0 32 07/02/18 11:09 111 28 98 07/02/18 11:00 102/62 07/02/18 11:00 111 28 102/62 (75) 99 07/02/18 10:30 106 26 107/66 (80) 99 07/02/18 10:00 110 27 105/58 (74) 98 07/02/18 10:00 105/58 07/02/18 09:45 110 25 97 07/02/18 09:45 3.0 07/02/18 09:30 112 28 103/65 (78) 97 07/02/18 09:00 103 23 94/61 (72) 98 07/02/18 09:00 94/61 07/02/18 08:58 109 25 96 Facial 40 07/02/18 08:47 101/65 07/02/18 08:30 107 23 100/62 (75) 98 07/02/18 08:00 105/67 07/02/18 08:00 40 07/02/18 08:00 110 23 105/67 (80) 98 07/02/18 08:00 Bi-pap 07/02/18 07:36 108 07/02/18 07:30 98.2 108 24 113/66 (82) 98 07/02/18 07:02 105 22 98 Facial 40 07/02/18 07:00 98/62 07/02/18 07:00 104 24 98/62 (74) 98 07/02/18 06:30 108 25 108/66 (80) 98 07/02/18 06:00 110 25 100/63 (75) 97 07/02/18 06:00 100/63 07/02/18 05:30 114 32 103/66 (78) 98 07/02/18 05:14 103 19 97 Facial 40 07/02/18 05:00 103 26 93/63 (73) 96 07/02/18 05:00 93/63 07/02/18 04:30 110 27 103/66 (78) 100 07/02/18 04:00 40 07/02/18 04:00 98.5 112 27 111/71 (84) 97 07/02/18 04:00 Bi-pap 07/02/18 04:00 111/71 07/02/18 03:30 106 25 110/68 (82) 99 07/02/18 03:11 104 27 99 Facial 40 07/02/18 03:01 105 07/02/18 03:00 115/68 07/02/18 03:00 103 27 115/68 (84) 98 07/02/18 02:30 108/68 07/02/18 02:30 102 23 106/74 (85) 99 07/02/18 02:00 119/68 07/02/18 02:00 103 27 119/68 (85) 98 07/02/18 01:30 102 24 109/70 (83) 98 07/02/18 01:21 102 24 99 Facial 40 07/02/18 01:00 104 26 105/67 (80) 98 07/02/18 01:00 117/86 07/02/18 00:30 104 25 107/71 (83) 98 07/02/18 00:00 117/87 07/02/18 00:00 Bi-pap 07/02/18 00:00 98.5 103 26 108/72 (84) 98 07/02/18 00:00 103 07/01/18 23:30 104 26 114/67 (83) 98 07/01/18 23:05 103 28 99 Facial 40 07/01/18 23:00 134/47 07/01/18 23:00 104 25 113/64 (80) 99 07/01/18 22:35 112/67 07/01/18 22:30 105 26 112/67 (82) 98 07/01/18 22:00 107 28 104/72 (83) 98 07/01/18 21:30 108 24 103/68 (80) 98 07/01/18 21:03 106 28 99 Facial 40 07/01/18 21:00 106 27 103/68 (80) 98 07/01/18 20:56 40 07/01/18 20:56 Bi-pap Bi-pap 07/01/18 20:45 109 30 100/65 (77) 99 07/01/18 20:30 108 18 100/65 (77) 99 07/01/18 20:15 107 07/01/18 20:15 98.6 107 20 116/65 (82) 97 07/01/18 20:14 98.7 104 34 120/67 100 Bi-pap 40 07/01/18 20:00 98.5 105 38 129/50 100 Bi-pap 40 07/01/18 19:54 116 32 95 Facial 40 07/01/18 19:25 40 07/01/18 19:20 118 40 Bi-pap 07/01/18 19:10 98.9 110 35 122/55 98 Bi-pap 40 07/01/18 19:01 128/71 07/01/18 18:15 120 39 95 Facial 40 07/01/18 18:10 98.7 118 40 110/48 96 Bi-pap 40 07/01/18 18:05 114/61 07/01/18 17:35 108/76 07/01/18 17:05 126/38 07/01/18 16:35 101/54 07/01/18 16:26 119 27 95 Room Air 21 07/01/18 16:10 118 30 94 Room Air 21 07/01/18 16:10 118 30 Room Air 21 07/01/18 16:05 113/46 07/01/18 15:50 109/61 07/01/18 15:35 113/46 07/01/18 15:30 100/24 07/01/18 15:25 98/52 07/01/18 15:20 92/50 07/01/18 15:15 87/42 07/01/18 15:10 87/45 07/01/18 15:05 89/56 07/01/18 15:00 86/49 07/01/18 15:00 100.5 118 38 86/49 98 Room Air 07/01/18 15:00 118 38 Room Air 07/01/18 14:42 101.0 124 30 92/46 96 Room Air 07/01/18 14:42 92/46 07/01/18 14:27 101.5 122 32 100/59 96 Room Air 07/01/18 14:27 100/59 07/01/18 14:12 92/46 07/01/18 14:12 92/46 07/01/18 14:07 88/50 07/01/18 14:07 88/50 07/01/18 14:02 83/48 07/01/18 14:02 83/48 07/01/18 13:57 81/50 07/01/18 13:57 81/50 07/01/18 13:52 122 34 80/45 94 Room Air 07/01/18 13:52 77/50 Intake and Output 07/01/18 07/02/18 19:00 07:00 Intake Total 2660 ml 4290.5 ml Output Total 3210 ml Balance 2660 ml 1080.5 ml Intake IV Total 2660 ml 4290.5 ml Output Urine Total 3210 ml Laboratory Tests Test 07/01/18 16:20 07/01/18 18:09 07/01/18 21:10 07/01/18 23:40 Arterial Blood pH 7.409 (7.350-7.450) 7.378 (7.350-7.450) Arterial Blood Partial Pressure CO2 28.4 mmHg (35.0-45.0) L 31.9 mmHg (35.0-45.0) L Arterial Blood Partial Pressure O2 85.2 mmHg (75.0-100.0) 88.9 mmHg (75.0-100.0) Arterial Blood HCO3 17.6 mmol/L (22.0-26.0) *L 18.4 mmol/L (22.0-26.0) L Arterial Blood Oxygen Saturation 95.8 % (95-100) 96.4 % (95-100) Arterial Blood Base Excess -6.0 (-2-2) L -5.9 (-2-2) L Richi Test Positive Positive Lactic Acid Level 3.90 mmol/L (0.4-2.0) H 2.60 mmol/L (0.66-2.22) H Test 07/02/18 04:15 07/02/18 07:06 07/02/18 10:49 07/02/18 11:52 White Blood Count 43.3 K/UL (4.8-10.8) *H Red Blood Count 4.14 M/UL (4.70-6.10) L Hemoglobin 9.8 G/DL (14.2-18.0) L Hematocrit 31.3 % (42.0-52.0) L Mean Corpuscular Volume 76 FL (80-99) L Mean Corpuscular Hemoglobin 23.6 PG (27.0-31.0) L Mean Corpuscular Hemoglobin Concent 31.3 G/DL (32.0-36.0) L Red Cell Distribution Width 18.3 % (11.6-14.8) H Platelet Count 373 K/UL (150-450) Mean Platelet Volume 7.2 FL (6.5-10.1) Neutrophils (%) (Auto) % (45.0-75.0) Lymphocytes (%) (Auto) % (20.0-45.0) Monocytes (%) (Auto) % (1.0-10.0) Eosinophils (%) (Auto) % (0.0-3.0) Basophils (%) (Auto) % (0.0-2.0) Differential Total Cells Counted 100 Neutrophils % (Manual) 75 % (45-75) Lymphocytes % (Manual) 2 % (20-45) L Monocytes % (Manual) 3 % (1-10) Eosinophils % (Manual) 0 % (0-3) Basophils % (Manual) 0 % (0-2) Metamyelocytes % 1 % (0-0) H Band Neutrophils 19 % (0-8) H Platelet Estimate Adequate Platelet Morphology Normal Hypochromasia 1+ Anisocytosis 1+ Microcytosis 1+ Sodium Level 136 MMOL/L (136-145) Potassium Level 3.8 MMOL/L (3.5-5.1) Chloride Level 103 MMOL/L (98-107) Carbon Dioxide Level 24 MMOL/L (21-32) Anion Gap 9 mmol/L (5-15) Blood Urea Nitrogen 29 mg/dL (7-18) H Creatinine 1.3 MG/DL (0.55-1.30) Estimat Glomerular Filtration Rate 55.8 mL/min (>60) Glucose Level 328 MG/DL (74-106) #H Lactic Acid Level 2.90 mmol/L (0.4-2.0) H 2.60 mmol/L (0.66-2.22) H Calcium Level 8.2 MG/DL (8.5-10.1) L Magnesium Level 1.7 MG/DL (1.8-2.4) L Total Bilirubin 0.5 MG/DL (0.2-1.0) Direct Bilirubin 0.2 MG/DL (0.0-0.3) Aspartate Amino Transf (AST/SGOT) 68 U/L (15-37) H Alanine Aminotransferase (ALT/SGPT) 26 U/L (12-78) Alkaline Phosphatase 95 U/L (46-116) Total Protein 7.3 G/DL (6.4-8.2) Albumin 1.5 G/DL (3.4-5.0) L Troponin I 0.127 ng/mL (0.000-0.056) Arterial Blood pH 7.396 (7.350-7.450) Arterial Blood Partial Pressure CO2 36.9 mmHg (35.0-45.0) Arterial Blood Partial Pressure O2 140.0 mmHg (75.0-100.0) H Arterial Blood HCO3 22.1 mmol/L (22.0-26.0) Arterial Blood Oxygen Saturation 98.4 % (95-100) Arterial Blood Base Excess -2.4 (-2-2) L Richi Test Positive Random Vancomycin Level 10.4 ug/mL Microbiology Date/Time Source Procedure Growth Status 07/01/18 20:00 Rectum Received Height (Feet): 5 Height (Inches): 8.00 Weight (Pounds): 170 Medications Current Medications Medications (Trade) Dose Ordered Sig/Patience Route PRN Reason Start Time Stop Time Status Last Admin Dose Admin Acetaminophen (Tylenol) 650 mg Q4H PRN RECTAL FEVER 07/01/18 14:45 07/31/18 14:44 Albuterol/ Ipratropium (Albuterol/ Ipratropium) 3 ml Q4H PRN HHN Shortness of Breath 07/01/18 14:45 07/06/18 14:44 Amikacin Protocol (Amikacin pharmacy to dose) 1 ea DAILY PRN MISC Per rx protocol 07/02/18 08:15 08/01/18 08:14 Amikacin Sulfate 1000 mg/Sodium Chloride 114 ml @ 228 mls/hr Q36H IV 07/02/18 10:00 07/09/18 09:59 07/02/18 11:03 Barium Sulfate (Readi-Cat 2) 450 ml NOW PRN ORAL Radiology Procedure 07/02/18 08:15 07/04/18 08:03 Chlorhexidine Gluconate (Cristine-Hex 2%) 1 applic DAILY@2000 TOPIC 07/01/18 20:00 07/31/18 19:59 07/01/18 21:51 Dextrose (Dextrose 50%) 25 ml Q30M PRN IV Hypoglycemia 07/02/18 10:45 08/01/18 10:44 Dextrose (Dextrose 50%) 50 ml Q30M PRN IV Hypoglycemia 07/02/18 10:45 08/01/18 10:44 Heparin Sodium (Porcine) (Heparin 5000 units/ml) 5,000 units EVERY 12 HOURS SUBQ 07/01/18 21:00 07/31/18 20:59 07/02/18 08:40 Insulin Aspart (NovoLOG) BEFORE MEALS AND HS SUBQ 07/02/18 11:30 08/01/18 11:29 07/02/18 12:22 Magnesium Sulfate 100 ml @ 100 mls/hr Q1H IVPB 07/02/18 13:30 07/02/18 15:29 Norepinephrine Bitartrate 4 mg/ Dextrose 250 ml @ 0 mls/hr Q24H IV 07/01/18 22:00 07/31/18 21:59 07/02/18 08:47 Ondansetron HCl (Zofran) 4 mg Q6H PRN IVP Nausea & Vomiting 07/01/18 14:45 07/31/18 14:44 07/01/18 18:23 Piperacillin Sod/ Tazobactam Sod 3.375 gm/Sodium Chloride 110 ml @ 27.5 mls/hr EVERY 8 HOURS IVPB 07/01/18 22:00 07/06/18 21:59 07/02/18 05:50 Sodium Chloride 1,000 ml @ 100 mls/hr Q10H IVLG 07/01/18 14:46 07/31/18 14:45 07/02/18 08:33 Vancomycin HCl (Vanco rx to dose) 1 ea DAILY PRN MISC Per rx protocol 07/01/18 14:45 07/31/18 14:44 Vancomycin HCl 1 gm/Dextrose 275 ml @ 183.708 mls/hr ONCE IVPB 07/02/18 14:00 07/02/18 16:00 Assessment/Plan Problem List: (1) Non-STEMI (non-ST elevated myocardial infarction) ICD Codes: I21.4 - Non-ST elevation (NSTEMI) myocardial infarction SNOMED: 59074540 (2) Fever ICD Codes: R50.9 - Fever, unspecified SNOMED: 613618884 (3) Sacral decubitus ulcer Assessment & Plan: Pt presented on admission with multiple pressure injuries.Full thickness sacral pressure injury with undermining. Base of wound is beefy red. Bone is palpable.Borders red and flat. Darker skin tone periwound without erythema or induration. (L)8cm x (W)7.5cm x(D)3cm ,Undermining 7-5 by 5.5cm@ 8 o'clock. No odor noted .Small amt serous exudate noted. Partially opened DTPI L ischium.Base of wound dark brown. Areas that are fluctuant, with scattered openings that are viable within base of wound.Periwound without erythema or induration. (L)7.5cm x (W)4.2cmPartial thickness pressure injury noted to posterior Upper L thigh (L)0.6cm x (W) 0.5cm.Base of wound is moist -viable.No odor or exudate noted. Dry peeling skin without erythema periwound. Partially opened DTPI lateral L Tibia. Base of wound with 40% pink granulation otherwise with 60% soft urbina slough. Small amt non-odorous exudate noted. (L) 4.3cm x (W)4.2cm. L heel pressure injury with 80% mixed dry eschar and slough,20% pink granulation. No odor or exudate noted.Periwound is fluctuant but blanchable. Dark skin tone without induration or fluctuance noted to R ischium. Scattered partial thickness openings within affected area of discoloration.Full thickness pressure injury Lateral R malleolus. Base of wound erythematous with trace amt Biofilm.Small amt non-odorous serous exudate noted.Erythema noted along borders and periwound.No odor noted.(L)1cm x (W)1.2cm. Blood filled blister noted to lateral R heel. Base of wound is purple and fluctuant. Non-blanchable erythema with fluctuance noted periwound. (L)(L)2cm x (W)2.5cm. Tx.Plan: Cleanse sacral wound with Saline. Loosely pack with Hydrogel impregnated kerlix.Apply Triad paste periwound. Cover with Optifoam drsg. Change Daily and PRN. Cleanse L Ischium with Saline. Apply Triad Paste. Cover with Optifoam drsg. Change every 3 days and prn. Cleanse lateral tibia with Saline. Apply Therahoney. Cavilon Skin Barrier Periwound. Cover with Optifoam drsg. Change every 3 days and prn. Cleanse L heel with Saline. Apply Therahoney. Apply Cavilon Skin Barrier periwound. Cover with Optifoam drsg. Change every 3 days and prn. Apply Triad Paste to R ischium . Cover with Optifoam drsg. Change every 3 days and prn. Cleanse R lateral Malleolus with Saline. Apply Therahoney. Apply Cavilon Periwound. Cover with Optifoam drsg Change every 3 days and prn. Apply Cavilon Skin Barrier to R heel . Cover with Optifoam drsg. Change every 7 days and prn. APM/SELENA Mattress overlay. Reposition at least every 2hours or as tolerated. ICD Codes: L89.159 - Pressure ulcer of sacral region, unspecified stage SNOMED: 081810059 (4) Sepsis Assessment & Plan: Cont with IV Abx CXR noted AM labs ordered labs noted exam thus far stable wounds being cared for overall prognosis guarded ICD Codes: A41.9 - Sepsis, unspecified organism SNOMED: 69430093 (5) Acute encephalopathy ICD Codes: G93.40 - Encephalopathy, unspecified SNOMED: 59073542, 877140046 (6) Septic shock ICD Codes: A41.9 - Sepsis, unspecified organism; R65.21 - Severe sepsis with septic shock SNOMED: 34398534 (7) Leukocytosis ICD Codes: D72.829 - Elevated white blood cell count, unspecified SNOMED: 207525540, 303123475 (8) Acute kidney injury ICD Codes: N17.9 - Acute kidney failure, unspecified SNOMED: 46739448 Tonio Raza July 02, 2018 13:50
[2018-07-02] MEDS ORDERED: Vancomycin 1gm/D5W 275ml IVPB SCH ×2 (14:00)
--- NOTE | 2018-07-02 14:04 | NUR ---
RD ASSESSMENT & RECOMMENDATIONS SEE CARE ACTIVITY FOR COMPLETE ASSESSMENT DAILY ESTIMATED NEEDS: Needs based on Wounds, sepsis CANDY COUNTER CLERK TF/ 76kg 25-30 kcals/kg 2997-6962 total kcals 1.5-2.0 g protein/kg 114-152 g total protein 25-30 mL/kg 5358-5832 total fluid mLs NUTRITION DIAGNOSIS: 1) Increased kcal and protein needs r/t wound healing and sepsis as evidenced by pt adm w/ multiple wounds, including stage 4, stage 3, stage 2, DTI's, unstageable wounds, refer to WC eval, pt septic w/ critically elev wbc (43.3*), elev LA and RR. 2) Swallowing difficulty r/t dysphagia and h/o CVA as evidenced by pt is PEG dep. CURRENT TF:NPO ENTERAL NUTRITION RECOMMENDATIONS: Glucerna 1.5 @55ml/hr x24 hrs + Prosource 1pkt daily to provide 1320ml, 1980 kcal, 109g +11g prot, 1002ml free H2O - With HEMODYNAMIC STABILTY and as medically appropriate , start glucerna 1.5 @ 25ml/hr, advance as tolerated 10ml/hr q 4-6 hrs to goal - Add Prosource 1pkt QD to meet protein needs - Flush per MD. HOB over 30 degrees WITHOUT HEMODYNAMIC STABILITY, rec trophic feeding of Glucerna 1.5 @ 15ml/hr x 24 hrs ADDITIONAL RECOMMENDATIONS: 1) Wound care: add Vit C 500mg QD, Rafael 1pkt BID : TF @ goal will provide 100% RDI 2) Per SNF, pt's HT=5'10", CF=459wqq (obtained 06/12/18) 3) Re-calibrated bedscale wt, weekly wt monitoring 4) Monitor HD stability 5) Monitor lytes, replete as needed (low mag)
--- NOTE | 2018-07-02 14:16 | NUR ---
Social Work This Sw met with patient, currently in the ICU who is responsive with facial gestures (confused at times). This SW met spoke with niece, Annalise Aldridge ([phone]) who is the primary decision maker for patient, requesting full code, full treatment (this SW discussed POLST with family who explained they have not completed one, nor does patient have an Advance Directive. Niece requesting a transfer back to [facility] when ready for discharge. This Sw spoke with Flora in Medical Records @ [place], who also confirmed that patient does not have have a POLST or AD.
--- NOTE | 2018-07-02 14:16 | NUR ---
NURSE NOTES:WOUND CARE NOTES:Pt presented on admission with multiple pressure injuries.Full thickness sacral pressure injury with undermining. Base of wound is beefy red. Bone is palpable.Borders red and flat. Darker skin tone periwound without erythema or induration. (L)8cm x (W)7.5cm x(D)3cm ,Undermining 7-5 by 5.5cm@ 8 o'clock. No odor noted .Small amt serous exudate noted. Partially opened DTPI L ischium.Base of wound dark brown. Areas that are fluctuant, with scattered openings that are viable within base of wound.Periwound without erythema or induration. (L)7.5cm x (W)4.2cmPartial thickness pressure injury noted to posterior Upper L thigh (L)0.6cm x (W)0.5cm.Base of wound is moist -viable.No odor or exudate noted. Dry peeling skin without erythema periwound. Partially opened DTPI lateral L Tibia. Base of wound with 40% pink granulation otherwise with 60% soft urbina slough. Small amt non-odorous exudate noted. (L)4.3cm x (W)4.2cm. L heel pressure injury with 80% mixed dry eschar and slough,20% pink granulation. No odor or exudate noted.Periwound is fluctuant but blanchable. Dark skin tone without induration or fluctuance noted to R ischium. Scattered partial thickness openings within affected area of discoloration.Full thickness pressure injury Lateral R malleolus. Base of wound erythematous with trace amt Biofilm.Small amt non-odorous serous exudate noted.Erythema noted along borders and periwound.No odor noted.(L)1cm x (W)1.2cm. Blood filled blister noted to lateral R heel. Base of wound is purple and fluctuant. Non-blanchable erythema with fluctuance noted periwound. (L)(L)2cm x (W)2.5cm. Tx.Plan:Cleanse sacral wound with Saline. Loosely pack with Hydrogel impregnated kerlix.Apply Triad paste periwound. Cover with Optifoam drsg. Change Daily and PRN. Cleanse L Ischium with Saline. Apply Triad Paste. Cover with Optifoam drsg. Change every 3 days and prn. Cleanse lateral tibia with Saline. Apply Therahoney. Cavilon Skin Barrier Periwound. Cover with Optifoam drsg. Change every 3 days and prn. Cleanse L heel with Saline. Apply Therahoney. Apply Cavilon Skin Barrier periwound. Cover with Optifoam drsg. Change every 3 days and prn. Apply Triad Paste to R ischium . Cover with Optifoam drsg. Change every 3 days and prn. Cleanse R lateral Malleolus with Saline. Apply Therahoney. Apply Cavilon Periwound. Cover with Optifoam drsg. Change every 3 days and prn. Apply Cavilon Skin Barrier to R heel . Cover with Optifoam drsg. Change every 7 days and prn. APM/SELENA Mattress overlay. Reposition at least every 2hours or as tolerated.
--- NOTE | 2018-07-02 14:20 | NUR ---
NURSE NOTES: Turned and repositioned pt. Pt is on N/C 3L. Suctioned thick yellow secretion via nares by RT PRN. Pt is on Levophed 10mcg/min. BP 107/64. No acute distress noted.
--- NOTE | 2018-07-02 15:30 | Cardiology Report ---
APPROVED REPORT EKG Measurement Heart [id number] MI [id number] Sinus tachycardia Otherwise normal ECG
--- NOTE | 2018-07-02 15:57 | NUR ---
*-* INSURANCEV *-* CLINICALS AND REVIEWS HAVE BEEN FAXED TO [facility]: RAINER REEVES P [phone] F [phone]
--- NOTE | 2018-07-02 16:15 | Consultation ---
History of Present Illness General Chief Complaint: Altered Level of Consciousness Reason for Consultation: wound Present Illness Allergies: Coded Allergies: No Known Allergies (Unverified , 09/29/17) Medication History Scheduled Amoxicillin/Potassium Clav 875-125* (Augmentin 875-125 Tablet*), 1 TAB GT TWICE A DAY Docusate Sodium* (Colace*), 100 MG ORAL DAILY, (Reported) Magnesium Hydroxide* (Milk Of Magnesia*), 30 ML ORAL DAILY, (Reported) Midodrine* (Proamatine*), 10 MG ORAL THREE TIMES A DAY, (Reported) Na Phos,M-B/Na Phos,Di-Ba* (Fleet Enema*), 133 ML RECTAL DAILY, (Reported) Pantoprazole* (Pantoprazole*), 40 MG ORAL DAILY, (Reported) Trimethoprim/Sulfamethoxazole 160/800* (Bactrim Ds Tablet*), 2 TAB GT Q12H Zinc Sulfate (Zinc Sulfate*), 220 MG ORAL DAILY, (Reported) Scheduled PRN Acetaminophen (Tylenol), 650 MG ORAL Q6H PRN for Prn Pain/Headache/Temp > 101, ( Reported) Miscellaneous Medications Bisacodyl (Dulcolax), 10 MG RC, (Reported) Ipratropium [place] (Ipratropium [place]), 15 ML NS, (Reported) Ipratropium/Albuterol Sulfate (DuoNeb 0.5-3(2.5)mg/3ml), 3 ML HHN, (Reported) Sennosides (Senna), 8.6 MG PO, (Reported) Patient History Healthcare decision maker harry kirk Resuscitation status Full Code Advanced Directive on File No Physical Exam Last 24 Hour Vital Signs Date Time Temp Pulse Resp B/P (MAP) Pulse Ox O2 Delivery O2 Flow Rate FiO2 07/02/18 15:37 106/63 07/02/18 14:30 103 27 106/60 (75) 99 07/02/18 14:00 103 24 107/64 (78) 100 07/02/18 14:00 113/64 07/02/18 13:30 102 24 98/65 (76) 100 07/02/18 13:00 104 25 108/66 (80) 98 07/02/18 12:30 104 28 107/66 (80) 98 07/02/18 12:00 97.8 104 27 101/65 (77) 97 07/02/18 12:00 Bi-pap 07/02/18 11:59 105 07/02/18 11:30 99 28 99/55 (70) 99 07/02/18 11:10 Nasal Cannula 3.0 32 07/02/18 11:10 98 Nasal Cannula 3.0 32 07/02/18 11:09 111 28 98 07/02/18 11:00 102/62 07/02/18 11:00 111 28 102/62 (75) 99 07/02/18 10:30 106 26 107/66 (80) 99 07/02/18 10:00 110 27 105/58 (74) 98 07/02/18 10:00 105/58 07/02/18 09:45 110 25 97 07/02/18 09:45 3.0 07/02/18 09:30 112 28 103/65 (78) 97 07/02/18 09:00 103 23 94/61 (72) 98 07/02/18 09:00 94/61 07/02/18 08:58 109 25 96 Facial 40 07/02/18 08:47 101/65 07/02/18 08:30 107 23 100/62 (75) 98 07/02/18 08:00 105/67 07/02/18 08:00 40 07/02/18 08:00 110 23 105/67 (80) 98 07/02/18 08:00 Bi-pap 07/02/18 07:36 108 07/02/18 07:30 98.2 108 24 113/66 (82) 98 07/02/18 07:02 105 22 98 Facial 40 07/02/18 07:00 98/62 07/02/18 07:00 104 24 98/62 (74) 98 07/02/18 06:30 108 25 108/66 (80) 98 07/02/18 06:00 110 25 100/63 (75) 97 07/02/18 06:00 100/63 07/02/18 05:30 114 32 103/66 (78) 98 07/02/18 05:14 103 19 97 Facial 40 07/02/18 05:00 103 26 93/63 (73) 96 07/02/18 05:00 93/63 07/02/18 04:30 110 27 103/66 (78) 100 07/02/18 04:00 40 07/02/18 04:00 98.5 112 27 111/71 (84) 97 07/02/18 04:00 Bi-pap 07/02/18 04:00 111/71 07/02/18 03:30 106 25 110/68 (82) 99 07/02/18 03:11 104 27 99 Facial 40 07/02/18 03:01 105 07/02/18 03:00 115/68 07/02/18 03:00 103 27 115/68 (84) 98 07/02/18 02:30 108/68 07/02/18 02:30 102 23 106/74 (85) 99 07/02/18 02:00 119/68 07/02/18 02:00 103 27 119/68 (85) 98 07/02/18 01:30 102 24 109/70 (83) 98 07/02/18 01:21 102 24 99 Facial 40 07/02/18 01:00 104 26 105/67 (80) 98 07/02/18 01:00 117/86 07/02/18 00:30 104 25 107/71 (83) 98 07/02/18 00:00 117/87 07/02/18 00:00 Bi-pap 07/02/18 00:00 98.5 103 26 108/72 (84) 98 07/02/18 00:00 103 07/01/18 23:30 104 26 114/67 (83) 98 07/01/18 23:05 103 28 99 Facial 40 07/01/18 23:00 134/47 07/01/18 23:00 104 25 113/64 (80) 99 07/01/18 22:35 112/67 07/01/18 22:30 105 26 112/67 (82) 98 07/01/18 22:00 107 28 104/72 (83) 98 07/01/18 21:30 108 24 103/68 (80) 98 07/01/18 21:03 106 28 99 Facial 40 07/01/18 21:00 106 27 103/68 (80) 98 07/01/18 20:56 40 07/01/18 20:56 Bi-pap Bi-pap 07/01/18 20:45 109 30 100/65 (77) 99 07/01/18 20:30 108 18 100/65 (77) 99 07/01/18 20:15 107 07/01/18 20:15 98.6 107 20 116/65 (82) 97 07/01/18 20:14 98.7 104 34 120/67 100 Bi-pap 40 07/01/18 20:00 98.5 105 38 129/50 100 Bi-pap 40 07/01/18 19:54 116 32 95 Facial 40 07/01/18 19:25 40 07/01/18 19:20 118 40 Bi-pap 07/01/18 19:10 98.9 110 35 122/55 98 Bi-pap 40 07/01/18 19:01 128/71 07/01/18 18:15 120 39 95 Facial 40 07/01/18 18:10 98.7 118 40 110/48 96 Bi-pap 40 07/01/18 18:05 114/61 07/01/18 17:35 108/76 07/01/18 17:05 126/38 07/01/18 16:35 101/54 07/01/18 16:26 119 27 95 Room Air 21 Intake and Output 07/01/18 07/02/18 19:00 07:00 Intake Total 2660 ml 4290.5 ml Output Total 3210 ml Balance 2660 ml 1080.5 ml Intake IV Total 2660 ml 4290.5 ml Output Urine Total 3210 ml Laboratory Tests Test 07/01/18 16:20 07/01/18 18:09 07/01/18 21:10 07/01/18 23:40 Arterial Blood pH 7.409 (7.350-7.450) 7.378 (7.350-7.450) Arterial Blood Partial Pressure CO2 28.4 mmHg (35.0-45.0) L 31.9 mmHg (35.0-45.0) L Arterial Blood Partial Pressure O2 85.2 mmHg (75.0-100.0) 88.9 mmHg (75.0-100.0) Arterial Blood HCO3 17.6 mmol/L (22.0-26.0) *L 18.4 mmol/L (22.0-26.0) L Arterial Blood Oxygen Saturation 95.8 % (95-100) 96.4 % (95-100) Arterial Blood Base Excess -6.0 (-2-2) L -5.9 (-2-2) L Richi Test Positive Positive Lactic Acid Level 3.90 mmol/L (0.4-2.0) H 2.60 mmol/L (0.66-2.22) H Test 07/02/18 04:15 07/02/18 07:06 07/02/18 10:49 07/02/18 11:52 White Blood Count 43.3 K/UL (4.8-10.8) *H Red Blood Count 4.14 M/UL (4.70-6.10) L Hemoglobin 9.8 G/DL (14.2-18.0) L Hematocrit 31.3 % (42.0-52.0) L Mean Corpuscular Volume 76 FL (80-99) L Mean Corpuscular Hemoglobin 23.6 PG (27.0-31.0) L Mean Corpuscular Hemoglobin Concent 31.3 G/DL (32.0-36.0) L Red Cell Distribution Width 18.3 % (11.6-14.8) H Platelet Count 373 K/UL (150-450) Mean Platelet Volume 7.2 FL (6.5-10.1) Neutrophils (%) (Auto) % (45.0-75.0) Lymphocytes (%) (Auto) % (20.0-45.0) Monocytes (%) (Auto) % (1.0-10.0) Eosinophils (%) (Auto) % (0.0-3.0) Basophils (%) (Auto) % (0.0-2.0) Differential Total Cells Counted 100 Neutrophils % (Manual) 75 % (45-75) Lymphocytes % (Manual) 2 % (20-45) L Monocytes % (Manual) 3 % (1-10) Eosinophils % (Manual) 0 % (0-3) Basophils % (Manual) 0 % (0-2) Metamyelocytes % 1 % (0-0) H Band Neutrophils 19 % (0-8) H Platelet Estimate Adequate Platelet Morphology Normal Hypochromasia 1+ Anisocytosis 1+ Microcytosis 1+ Sodium Level 136 MMOL/L (136-145) Potassium Level 3.8 MMOL/L (3.5-5.1) Chloride Level 103 MMOL/L (98-107) Carbon Dioxide Level 24 MMOL/L (21-32) Anion Gap 9 mmol/L (5-15) Blood Urea Nitrogen 29 mg/dL (7-18) H Creatinine 1.3 MG/DL (0.55-1.30) Estimat Glomerular Filtration Rate 55.8 mL/min (>60) Glucose Level 328 MG/DL (74-106) #H Lactic Acid Level 2.90 mmol/L (0.4-2.0) H 2.60 mmol/L (0.66-2.22) H Calcium Level 8.2 MG/DL (8.5-10.1) L Magnesium Level 1.7 MG/DL (1.8-2.4) L Total Bilirubin 0.5 MG/DL (0.2-1.0) Direct Bilirubin 0.2 MG/DL (0.0-0.3) Aspartate Amino Transf (AST/SGOT) 68 U/L (15-37) H Alanine Aminotransferase (ALT/SGPT) 26 U/L (12-78) Alkaline Phosphatase 95 U/L (46-116) Total Protein 7.3 G/DL (6.4-8.2) Albumin 1.5 G/DL (3.4-5.0) L Troponin I 0.127 ng/mL (0.000-0.056) Arterial Blood pH 7.396 (7.350-7.450) Arterial Blood Partial Pressure CO2 36.9 mmHg (35.0-45.0) Arterial Blood Partial Pressure O2 140.0 mmHg (75.0-100.0) H Arterial Blood HCO3 22.1 mmol/L (22.0-26.0) Arterial Blood Oxygen Saturation 98.4 % (95-100) Arterial Blood Base Excess -2.4 (-2-2) L Richi Test Positive Random Vancomycin Level 10.4 ug/mL Test 07/02/18 14:30 Lactic Acid Level 2.50 mmol/L (0.4-2.0) H Troponin I 0.080 ng/mL (0.000-0.056) Microbiology Date/Time Source Procedure Growth Status 07/01/18 20:00 Rectum Received Height (Feet): 5 Height (Inches): 8.00 Weight (Pounds): 170 Medications Current Medications Medications (Trade) Dose Ordered Sig/Patience Route PRN Reason Start Time Stop Time Status Last Admin Dose Admin Acetaminophen (Tylenol) 650 mg Q4H PRN RECTAL FEVER 07/01/18 14:45 07/31/18 14:44 Albuterol/ Ipratropium (Albuterol/ Ipratropium) 3 ml Q4H PRN HHN Shortness of Breath 07/01/18 14:45 07/06/18 14:44 Amikacin Protocol (Amikacin pharmacy to dose) 1 ea DAILY PRN MISC Per rx protocol 07/02/18 08:15 08/01/18 08:14 Amikacin Sulfate 1000 mg/Sodium Chloride 114 ml @ 228 mls/hr Q36H IV 07/02/18 10:00 07/09/18 09:59 07/02/18 11:03 Barium Sulfate (Readi-Cat 2) 450 ml NOW PRN ORAL Radiology Procedure 07/02/18 08:15 07/04/18 08:03 Chlorhexidine Gluconate (Cristine-Hex 2%) 1 applic DAILY@2000 TOPIC 07/01/18 20:00 07/31/18 19:59 07/01/18 21:51 Dextrose (Dextrose 50%) 25 ml Q30M PRN IV Hypoglycemia 07/02/18 10:45 08/01/18 10:44 Dextrose (Dextrose 50%) 50 ml Q30M PRN IV Hypoglycemia 07/02/18 10:45 08/01/18 10:44 Heparin Sodium (Porcine) (Heparin 5000 units/ml) 5,000 units EVERY 12 HOURS SUBQ 07/01/18 21:00 07/31/18 20:59 07/02/18 08:40 Insulin Aspart (NovoLOG) BEFORE MEALS AND HS SUBQ 07/02/18 11:30 08/01/18 11:29 07/02/18 12:22 Norepinephrine Bitartrate 4 mg/ Dextrose 250 ml @ 0 mls/hr Q24H IV 07/01/18 22:00 07/31/18 21:59 07/02/18 15:37 Ondansetron HCl (Zofran) 4 mg Q6H PRN IVP Nausea & Vomiting 07/01/18 14:45 07/31/18 14:44 07/01/18 18:23 Piperacillin Sod/ Tazobactam Sod 3.375 gm/Sodium Chloride 110 ml @ 27.5 mls/hr EVERY 8 HOURS IVPB 07/01/18 22:00 07/06/18 21:59 07/02/18 15:31 Sodium Chloride 1,000 ml @ 100 mls/hr Q10H IVLG 07/01/18 14:46 07/31/18 14:45 07/02/18 08:33 Vancomycin HCl (Vanco rx to dose) 1 ea DAILY PRN MISC Per rx protocol 07/01/18 14:45 07/31/18 14:44 Assessment/Plan Assessment/Plan: Hematology Consultation REQ MD: Karon Pulido DOS: 07/02/18 RFC: Severe leukocytosis, anemia, coagulopathy Source: EMS HPI Patient is a 62-year-old male who presented after increased altered mental status from nursing facility. Patient was noted to have increased hypotension and tachycardia. He was noted to be more altered than his baseline mental status. Patient is normally nonverbal but is able to track. Patient was noted to have increased congestion and difficulty breathing. He was brought in by EMS. Patient noted to be altered. patient was noted to be previously trach.History is limited by patient's mental status. Currently patient in the icu Allergies: Coded Allergies: No Known Allergies (Unverified , 09/29/17) Past Medical History: see triage record Reviewed Nursing Documentation: PMH: Agreed; PSxH: Agree Review of Systems: limited - Review of systems: Review systems is limited by patient's being a poor historia PE General Appearance: lethargic, Chronically Ill Neck: limited range of motion, other - old tracheostomy Respiratory: no respiratory distress, rhonchi Cardiovascular: normal peripheral pulses Gastrointestinal: soft Musculoskeletal: decreased range of motion Neurologic: motor weakness, other - somnolent Skin: other - large sacral decubitus ulcer Labs Test 07/01/18 11:00 07/01/18 12:05 White Blood Count 29.4 K/UL (4.8-10.8) Red Blood Count 4.91 M/UL (4.70-6.10) Hemoglobin 11.6 G/DL (14.2-18.0) Hematocrit 37.5 % (42.0-52.0) Mean Corpuscular Volume 76 FL (80-99) Mean Corpuscular Hemoglobin 23.6 PG (27.0-31.0) Mean Corpuscular Hemoglobin Concent 30.9 G/DL (32.0-36.0) Red Cell Distribution Width 18.1 % (11.6-14.8) Platelet Count 330 K/UL (150-450) Mean Platelet Volume 7.2 FL (6.5-10.1) Neutrophils (%) (Auto) % (45.0-75.0) Lymphocytes (%) (Auto) % (20.0-45.0) Monocytes (%) (Auto) % (1.0-10.0) Eosinophils (%) (Auto) % (0.0-3.0) Basophils (%) (Auto) % (0.0-2.0) Differential Total Cells Counted 100 Neutrophils % (Manual) 63 % (45-75) Lymphocytes % (Manual) 4 % (20-45) Monocytes % (Manual) 5 % (1-10) Eosinophils % (Manual) 1 % (0-3) Basophils % (Manual) 0 % (0-2) Metamyelocytes % 1 % (0-0) Myelocytes % 1 % (0-0) Band Neutrophils 25 % (0-8) Platelet Estimate Adequate Platelet Morphology See comment Giant Platelets Rare Hypochromasia 2+ Anisocytosis 2+ Microcytosis 2+ Prothrombin Time 13.1 SEC (9.30-11.50) Prothromb Time International Ratio 1.3 (0.9-1.1) Activated Partial Thromboplast Time 34 SEC (23-33) Urine Color Yellow Urine Appearance Very cloudy Urine pH 8 (4.5-8.0) Urine Specific [place] 1.010 (1.005-1.035) Urine Protein 3+ (NEGATIVE) Urine Glucose (UA) Negative (NEGATIVE) Urine Ketones Negative (NEGATIVE) Urine Blood 5+ (NEGATIVE) Urine Nitrite Negative (NEGATIVE) Urine Bilirubin Negative (NEGATIVE) Urine Urobilinogen 1 MG/DL (0.0-1.0) Urine Leukocyte Esterase 3+ (NEGATIVE) Urine RBC 60-80 /HPF (0 - 0) Urine WBC 30-40 /HPF (0 - 0) Urine Squamous Epithelial Cells None /LPF (NONE/OCC) Urine Bacteria Many /HPF (NONE) Sodium Level 134 MMOL/L (136-145) Potassium Level 4.1 MMOL/L (3.5-5.1) Chloride Level 98 MMOL/L (98-107) Carbon Dioxide Level 22 MMOL/L (21-32) Anion Gap 14 mmol/L (5-15) Blood Urea Nitrogen 28 mg/dL (7-18) Creatinine 1.9 MG/DL (0.55-1.30) Estimat Glomerular Filtration Rate 36.0 mL/min (>60) Glucose Level 180 MG/DL (74-106) Calcium Level 9.2 MG/DL (8.5-10.1) Phosphorus Level 2.1 MG/DL (2.5-4.9) Magnesium Level 1.7 MG/DL (1.8-2.4) Total Bilirubin 0.3 MG/DL (0.2-1.0) Aspartate Amino Transf (AST/SGOT) 49 U/L (15-37) Alanine Aminotransferase (ALT/SGPT) 17 U/L (12-78) Alkaline Phosphatase 109 U/L (46-116) Total Creatine Kinase 734 U/L (26-308) Creatine Kinase MB 10.4 NG/ML (0.0-3.6) Creatine Kinase MB Relative Index 1.4 Troponin I 0.700 ng/mL (0.000-0.056) Total Protein 8.5 G/DL (6.4-8.2) Albumin 1.9 G/DL (3.4-5.0) Globulin 6.6 g/dL Albumin/Globulin Ratio 0.3 (1.0-2.7) Lactic Acid Level 8.50 mmol/L (0.66-2.22) Assessment and Recs: # Leukocytosis/Elevated white blood cell count, unspecified likely related to underlying stress reaction, versus in this case septic shock REQUIRING pressors , elevated lactate likely uti v in addition sacral ulceration infection --> have reviewed peripheral smear and bandemia/neutrophilia noted, also metamyelocytes and meylocytes noted initially --> continue antibiotics if they have been started by ID team --> monitor for resolution ==> trend 29k-->43k # Anemia of chronic disease (or of iron deficiency) due to underlying chronic medical issues, multifactorial --> Anemia workup has been ordered, rule out gi bleed --> No evidence of hemolysis is noted, peripheral smear has been reviewed. --> Hgb goal >7. Transfuse prn. --> Epogen or iron at this time is not particularly indicated --> Medications have been reviewed --> evaluate with Gi team prn --> transfuse if hgb is < 7 (will trend CBC daily) --> low threshold for gi evaluation in case has occult + Coagulation defect, multifactorial usually related to poor PO intake versus medications, vesus in this case septic shock, inr is 1.3 --> administer Vitamin K if patient is bleeding or FFP if the INR is >10 --> hold off on ffp unless active procedure/bleeding, first begin with vit K 10 --> mixing study as needed # DARRIAN secondary to ATN --> per renal # Septic shock suspected to be due to infected pressure ulcers --> on abx as per id # Gram negative bacteremia # Acute metabolic encephalopathy # Functional quadriplegia # Sacral pressure ulcers,present on admission --> per surg # Type 2 NSTEMI from demand ischemia from septic shock --> per cards The timing of this note does not necessarily reflect the time of the patient was seen. Greatly appreciate consultation! Huey Garcia MD July 02, 2018 16:15
--- NOTE | 2018-07-02 17:06 | NUR ---
NURSE NOTES: Pt is awake and alert to name. Non-verbal. Appears to be confused. No acute distress noted. Suctioned PRN. Turned and repositioned pt. Will continue to monitor.
[2018-07-02 18:15] LABS: INR 1.3 (0.9-1.1)
[2018-07-02 18:37] LABS: % IRON SATURATION 4 % (15-50); IRON 5 ug/dL (50-175); TOTAL IRON BINDING CAPACITY 132 ug/dL (250-450)
[2018-07-02 19:03] LABS: FERRITIN 381 NG/ML (8-388); LACTATE DEHYDROGENASE 166 U/L (81-234)
--- NOTE | 2018-07-02 19:20 | NUR ---
HAND-OFF: Report given to Tesfaye Bell RN.
--- NOTE | 2018-07-02 19:45 | NUR ---
NURSE NOTES: PATIENT AWOKE, OPEN EYES, ABLE TO EYE CONTACT AND MOVED ARM, RT>LT, ON O2 3LPM VIA NC, RESPIRATION REGULAR, NO SOB NOTED, O2 SATURATION OVER 98% NOTED, NO DISCHARGE OUTED FROM OLD TRACHEOSTOMY SITE, ABDOMEN SOFT, NON TENDER, HYPOACTIVE BOWEL SOUND, NO BOWEL MOVEMENT, G TUBE INTACT AND CLAMP STATUS, F/C INTACT AND PATENT, YELLOW URINE OUTED, PICC LINE TO RIGHT UPPER ARM, INTACT AND PATENT, ONGOING LEVOPHED 10MCG/MIN AND NS AT 100ML/HR VIA PICC LINE, ON P200 BED, MADE LOWER BED POSITION, HOB 30 DEGREE, PROVIDED CALL LIGHT WITHIN REACH, WILL CONTINUE TO MONITOR.
[2018-07-02] MEDS: Dyna-Hex 2% Top Sol 2oz TOPIC SCH (19:56)
--- NOTE | 2018-07-02 21:40 | NUR ---
NURSE NOTES: ORAL CARE WAS DONE, REPOSITIONED.
--- NOTE | 2018-07-02 22:02 | Neurology Progress Note ---
Interim History Interim History ROS Limited/Unobtainable: Yes Objective Physical Exam Last Vital Signs Date Time Temp Pulse Resp B/P (MAP) Pulse Ox O2 Delivery O2 Flow Rate FiO2 07/02/18 19:09 96 22 Nasal Cannula 3.0 32 07/02/18 19:09 99 07/02/18 19:00 108/65 (79) 07/02/18 16:00 98.2 Laboratory Tests Test 07/01/18 23:40 07/02/18 04:15 07/02/18 07:06 07/02/18 10:49 Lactic Acid Level 2.60 mmol/L (0.66-2.22) H 2.90 mmol/L (0.4-2.0) H 2.60 mmol/L (0.66-2.22) H White Blood Count 43.3 K/UL (4.8-10.8) *H Red Blood Count 4.14 M/UL (4.70-6.10) L Hemoglobin 9.8 G/DL (14.2-18.0) L Hematocrit 31.3 % (42.0-52.0) L Mean Corpuscular Volume 76 FL (80-99) L Mean Corpuscular Hemoglobin 23.6 PG (27.0-31.0) L Mean Corpuscular Hemoglobin Concent 31.3 G/DL (32.0-36.0) L Red Cell Distribution Width 18.3 % (11.6-14.8) H Platelet Count 373 K/UL (150-450) Mean Platelet Volume 7.2 FL (6.5-10.1) Neutrophils (%) (Auto) % (45.0-75.0) Lymphocytes (%) (Auto) % (20.0-45.0) Monocytes (%) (Auto) % (1.0-10.0) Eosinophils (%) (Auto) % (0.0-3.0) Basophils (%) (Auto) % (0.0-2.0) Differential Total Cells Counted 100 Neutrophils % (Manual) 75 % (45-75) Lymphocytes % (Manual) 2 % (20-45) L Monocytes % (Manual) 3 % (1-10) Eosinophils % (Manual) 0 % (0-3) Basophils % (Manual) 0 % (0-2) Metamyelocytes % 1 % (0-0) H Band Neutrophils 19 % (0-8) H Platelet Estimate Adequate Platelet Morphology Normal Hypochromasia 1+ Anisocytosis 1+ Microcytosis 1+ Reticulocyte Count 0.7 % (0.0-2.0) Sodium Level 136 MMOL/L (136-145) Potassium Level 3.8 MMOL/L (3.5-5.1) Chloride Level 103 MMOL/L (98-107) Carbon Dioxide Level 24 MMOL/L (21-32) Anion Gap 9 mmol/L (5-15) Blood Urea Nitrogen 29 mg/dL (7-18) H Creatinine 1.3 MG/DL (0.55-1.30) Estimat Glomerular Filtration Rate 55.8 mL/min (>60) Glucose Level 328 MG/DL (74-106) #H Calcium Level 8.2 MG/DL (8.5-10.1) L Magnesium Level 1.7 MG/DL (1.8-2.4) L Total Bilirubin 0.5 MG/DL (0.2-1.0) Direct Bilirubin 0.2 MG/DL (0.0-0.3) Aspartate Amino Transf (AST/SGOT) 68 U/L (15-37) H Alanine Aminotransferase (ALT/SGPT) 26 U/L (12-78) Alkaline Phosphatase 95 U/L (46-116) Total Protein 7.3 G/DL (6.4-8.2) Albumin 1.5 G/DL (3.4-5.0) L Troponin I 0.127 ng/mL (0.000-0.056) Arterial Blood pH 7.396 (7.350-7.450) Arterial Blood Partial Pressure CO2 36.9 mmHg (35.0-45.0) Arterial Blood Partial Pressure O2 140.0 mmHg (75.0-100.0) H Arterial Blood HCO3 22.1 mmol/L (22.0-26.0) Arterial Blood Oxygen Saturation 98.4 % (95-100) Arterial Blood Base Excess -2.4 (-2-2) L Richi Test Positive Test 07/02/18 11:52 07/02/18 14:30 07/02/18 17:15 Random Vancomycin Level 10.4 ug/mL Lactic Acid Level 2.50 mmol/L (0.4-2.0) H Troponin I 0.080 ng/mL (0.000-0.056) Haptoglobin Pending Prothrombin Time 13.6 SEC (9.30-11.50) H Prothromb Time International Ratio 1.3 (0.9-1.1) H Fibrinogen 566 mg/dL (200-400) H Iron Level 5 ug/dL (50-175) L Total Iron Binding Capacity 132 ug/dL (250-450) L Percent Iron Saturation 4 % (15-50) L Unsaturated Iron Binding 127 ug/dL (112-346) Ferritin 381 NG/ML (8-388) Lactate Dehydrogenase 166 U/L (81-234) Vitamin B12 Level 1301 PG/ML (193-986) H Thyroid Stimulating Hormone (TSH) 3.655 uiU/mL (0.358-3.740) General: other - More Alert today on exam Head: other Neurologic Exam Mental Status: other Speech: other Language: other Cranial Nerve II: other Cranial Nerves III, IV, : other Cranial Nerve V: other Cranial Nerve VII: other Cranial Nerve VIII: other Cranial Nerve IX: other Cranial Nerve XI: other Cranial Nerve XII: other Motor System: other Sensory: other Coordination: other Objective He is on CPAP mask at time of his assessment in ICU but is intermittently following command as able with LUE and W/D in BLE. No response in his RUE- this may be his baseline given functional quadriplegia Impression/Recommendations Problems: (1) Acute encephalopathy (2) Sepsis (3) Non-STEMI (non-ST elevated myocardial infarction) (4) Fever (5) Leukocytosis Status: stable, progressing Recommendations Maintain Sleep hygiene - COnsider MElatonin 3mg QHS Frequently reorient patient Avoid benzodiazapenes, anticholinergics and opioid narcotics Wean respiratory support as able. OOB as able with PT - or in chair Maintain normothermia Maintain normoglycemia with ISS Katlin Stokes N.P. July 02, 2018 22:02
--- NOTE | 2018-07-02 23:50 | NUR ---
NURSE NOTES: PATIENT ASLEEP STATUS, NO PAIN OR DISTRESS NOTED AT THIS TIME.
[2018-07-03] VITALS (43 sets, daily range): BP systolic 87–141; BP diastolic 48–71
--- NOTE | 2018-07-03 02:10 | NUR ---
NURSE NOTES: NO PAIN OR DISTRESS NOTED, ONGOING LEVOPHED 10MCG/MIN, WILL CONTINUE TO MONITOR.
--- NOTE | 2018-07-03 04:30 | NUR ---
NURSE NOTES: MORNING CARE AND ORAL CARE WAS DONE, NO BOWEL MOVEMENT STATUS.
[2018-07-03] MEDS: Piperacillin/Tazobactam 3.375 GM in NS 110 ML IVPB SCH ×3 (05:53→21:52)
[2018-07-03] MEDS: NovoLOG Insulin Flexpen SUBQ SCH ×3 (05:54→18:00)
--- NOTE | 2018-07-03 06:20 | NUR ---
NURSE NOTES: NO ACUTE DISTRESS NOTED AT THIS SHIFT.
[2018-07-03 06:24] LABS: ANION GAP 5 mmol/L (5-15); BLOOD UREA NITROGEN 16 mg/dL (7-18); CALCIUM 7.8 MG/DL (8.5-10.1); CARBON DIOXIDE 28 MMOL/L (21-32); CHLORIDE 106 MMOL/L (98-107); CREATININE 0.7 MG/DL (0.55-1.30); POTASSIUM 3.3 MMOL/L (3.5-5.1); SODIUM 139 MMOL/L (136-145)
[2018-07-03 06:46] LABS: HEMATOCRIT 26.2 % (42.0-52.0); HEMOGLOBIN 8.6 G/DL (14.2-18.0); MEAN CORPUSCULAR VOLUME 75 FL (80-99); PLATELET COUNT 277 K/UL (150-450); RED BLOOD COUNT 3.51 M/UL (4.70-6.10); RED CELL DISTRIBUTION WIDTH 18.2 % (11.6-14.8)
[2018-07-03 06:57] LABS: WHITE BLOOD COUNT 26.1 K/UL (4.8-10.8)
--- NOTE | 2018-07-03 07:15 | NUR ---
NURSE NOTES: Received pt from MARIA ELENA Carlin. Pt is alert, opens eyes spontaneously, aphasic, confused. On 3LNC, SPo2 96%. Breathing even and unlabored. No signs of acute distress noted. diminished bilateral b/s. PICC DONTRELL running NS@100 and Levophed@10mcg. GT clamped, NPO. F/C draining to gravity. SR w/PVC's on concierge. Dressing on sacral, ankle and heel clean and intact. Bed locked, alarmed and in lowest position. Will continue plan of care.
--- NOTE | 2018-07-03 07:34 | NUR ---
HAND-OFF: Report given to MARIA ELENA BALBUENA.
[2018-07-03] MEDS ORDERED: Vancomycin 1.25gm Premix IVPB ONE (08:00)
--- NOTE | 2018-07-03 09:30 | NUR ---
NURSE NOTES: Titrated Levophed to 8mcg to keep MAP >60
[2018-07-03] MEDS: Heparin 5000 units/ml inj SUBQ SCH ×2 (09:33→21:00)
--- NOTE | 2018-07-03 10:59 | NUR ---
NURSE NOTES: Titrated levophed to 6mcg to keep MAP >60. BP 141/61, MAP 80.
[2018-07-03] MEDS: Amikacin 1,000 MG in NS 110 ML IV SCH (11:36)
--- NOTE | 2018-07-03 11:52 | NUR ---
CASE MANAGEMENT: REVIEW SI: NSTEMI . SEPSIS T 99.2 HR 91 RR 26 BP 87/48 SAT 99% NC/3L WBC 26.1 H/H 8.6/26.2 K 3.3 IS: AMIKACIN IV Q24HR ZOSYN IV Q8HR LEVOPHED IV Q24HR NS IVF @ 100ML/HR ICU STATUS DCP: PATIENT IS FROM [facility]
--- NOTE | 2018-07-03 12:36 | NUR ---
NURSE NOTES: Pt not able to go down to CT because hemodynamically unstable. Turned and repositioned. continue Levophed gtt to keep MAP >60.
--- NOTE | 2018-07-03 13:04 | Surgery Progress Note ---
Surgery Progress Note Subjective Additional Comments still in ICU critically ill labs noted cxr reviewed Objective Last 24 Hour Vital Signs Date Time Temp Pulse Resp B/P (MAP) Pulse Ox O2 Delivery O2 Flow Rate FiO2 07/03/18 12:30 83 27 114/63 (80) 100 07/03/18 12:11 104/63 07/03/18 12:00 83 07/03/18 12:00 84 26 103/63 (76) 100 07/03/18 12:00 3.0 07/03/18 11:30 86 30 113/58 (76) 100 07/03/18 11:00 85 30 114/61 (78) 100 07/03/18 10:30 86 30 141/64 (89) 100 07/03/18 10:00 85 30 119/65 (83) 100 07/03/18 09:30 87 27 124/71 (88) 100 07/03/18 09:00 86 27 119/70 (86) 97 07/03/18 08:30 85 27 128/67 (87) 100 07/03/18 08:00 85 07/03/18 08:00 3.0 07/03/18 08:00 86 27 128/70 (89) 97 07/03/18 08:00 Nasal Cannula 3.0 07/03/18 07:30 99.2 87 27 121/68 (85) 99 07/03/18 07:00 88 27 114/66 (82) 97 07/03/18 06:30 86 27 112/60 (77) 97 07/03/18 06:00 88 28 116/60 (78) 97 07/03/18 06:00 116/60 07/03/18 05:30 90 26 107/64 (78) 98 07/03/18 05:00 87 26 110/60 (77) 99 07/03/18 05:00 110/60 07/03/18 04:30 123/62 07/03/18 04:30 91 29 100/53 (69) 98 07/03/18 04:00 97.9 91 26 87/48 (61) 99 07/03/18 04:00 3.0 07/03/18 04:00 87/48 07/03/18 04:00 Nasal Cannula 3.0 07/03/18 03:30 89 27 113/60 (77) 99 07/03/18 03:02 91 07/03/18 03:00 107/57 07/03/18 03:00 93 26 107/57 (74) 96 07/03/18 02:30 91 26 106/55 (72) 93 07/03/18 02:00 107/61 07/03/18 02:00 89 25 107/61 (76) 99 07/03/18 01:30 90 25 100/58 (72) 97 07/03/18 01:00 112/51 07/03/18 01:00 88 25 112/51 (71) 99 07/03/18 00:30 92 24 99/55 (70) 100 07/03/18 00:00 Nasal Cannula 3.0 07/03/18 00:00 115/59 07/03/18 00:00 98.5 86 22 115/59 (77) 100 07/03/18 00:00 3.0 07/02/18 23:30 94 25 110/58 (75) 100 07/02/18 23:01 95 07/02/18 23:00 104/51 07/02/18 23:00 93 28 104/51 (68) 99 07/02/18 22:30 93 27 104/69 (81) 100 07/02/18 22:26 108/62 07/02/18 22:00 101 28 89/54 (66) 97 07/02/18 22:00 89/54 07/02/18 21:30 94 26 108/66 (80) 98 07/02/18 21:00 102/61 07/02/18 21:00 96 27 102/61 (75) 98 07/02/18 21:00 3.0 07/02/18 20:30 96 27 99/61 (74) 98 07/02/18 20:00 101/57 07/02/18 20:00 97.7 96 27 101/57 (72) 98 07/02/18 20:00 Nasal Cannula 3.0 07/02/18 20:00 3.0 07/02/18 19:39 93 07/02/18 19:30 96 26 98/61 (73) 99 07/02/18 19:09 96 22 Nasal Cannula 3.0 32 07/02/18 19:09 Nasal Cannula 3.0 32 07/02/18 19:09 99 Nasal Cannula 3.0 32 07/02/18 19:00 96 23 108/65 (79) 99 07/02/18 19:00 108/65 07/02/18 18:30 99 25 97/50 (66) 96 07/02/18 18:00 98/57 07/02/18 18:00 99 25 98/57 (71) 100 07/02/18 17:30 99 26 98/59 (72) 99 07/02/18 17:00 99 27 101/58 (72) 98 07/02/18 17:00 103/62 07/02/18 16:30 98 29 103/62 (76) 97 07/02/18 16:00 98.2 99 26 107/60 (76) 98 07/02/18 16:00 Nasal Cannula 3.0 07/02/18 16:00 107/60 07/02/18 16:00 3.0 07/02/18 15:47 101 07/02/18 15:37 106/63 07/02/18 15:30 101 26 105/61 (76) 98 07/02/18 15:00 102 26 105/63 (77) 98 07/02/18 15:00 105/63 07/02/18 14:30 103 27 106/60 (75) 99 07/02/18 14:00 103 24 107/64 (78) 100 07/02/18 14:00 113/64 07/02/18 13:30 102 24 98/65 (76) 100 I&O Intake and Output 07/02/18 07/03/18 19:00 07:00 Intake Total 2091.5 ml 1815.0 ml Output Total 915 ml 705 ml Balance 1176.5 ml 1110.0 ml Intake IV Total 2091.5 ml 1815.0 ml Output Urine Total 915 ml 705 ml Dressing: saturated Wound: other Drains: other Cardiovascular: RSR Respiratory: decreased breath sounds Abdomen: soft, non-distended, decreased bowel sounds Extremities: no cyanosis Laboratory Tests Test 07/02/18 14:30 07/02/18 17:15 07/02/18 22:10 07/03/18 05:35 Lactic Acid Level 2.50 mmol/L (0.4-2.0) H 1.40 mmol/L (0.4-2.0) Troponin I 0.080 ng/mL (0.000-0.056) 0.060 ng/mL (0.000-0.056) Haptoglobin Pending Prothrombin Time 13.6 SEC (9.30-11.50) H Prothromb Time International Ratio 1.3 (0.9-1.1) H Fibrinogen 566 mg/dL (200-400) H Iron Level 5 ug/dL (50-175) L Total Iron Binding Capacity 132 ug/dL (250-450) L Percent Iron Saturation 4 % (15-50) L Unsaturated Iron Binding 127 ug/dL (112-346) Ferritin 381 NG/ML (8-388) Lactate Dehydrogenase 166 U/L (81-234) Vitamin B12 Level 1301 PG/ML (193-986) H Thyroid Stimulating Hormone (TSH) 3.655 uiU/mL (0.358-3.740) Random Amikacin Level 8.6 ug/mL White Blood Count 26.1 K/UL (4.8-10.8) *H Red Blood Count 3.51 M/UL (4.70-6.10) L Hemoglobin 8.6 G/DL (14.2-18.0) L Hematocrit 26.2 % (42.0-52.0) L Mean Corpuscular Volume 75 FL (80-99) L Mean Corpuscular Hemoglobin 24.4 PG (27.0-31.0) L Mean Corpuscular Hemoglobin Concent 32.7 G/DL (32.0-36.0) Red Cell Distribution Width 18.2 % (11.6-14.8) H Platelet Count 277 K/UL (150-450) Mean Platelet Volume 7.7 FL (6.5-10.1) Neutrophils (%) (Auto) % (45.0-75.0) Lymphocytes (%) (Auto) % (20.0-45.0) Monocytes (%) (Auto) % (1.0-10.0) Eosinophils (%) (Auto) % (0.0-3.0) Basophils (%) (Auto) % (0.0-2.0) Differential Total Cells Counted 100 Neutrophils % (Manual) 85 % (45-75) H Lymphocytes % (Manual) 4 % (20-45) L Monocytes % (Manual) 2 % (1-10) Eosinophils % (Manual) 0 % (0-3) Basophils % (Manual) 0 % (0-2) Band Neutrophils 9 % (0-8) H Platelet Estimate Adequate Platelet Morphology Normal Hypochromasia 1+ Anisocytosis 1+ Microcytosis 1+ Sodium Level 139 MMOL/L (136-145) Potassium Level 3.3 MMOL/L (3.5-5.1) L Chloride Level 106 MMOL/L (98-107) Carbon Dioxide Level 28 MMOL/L (21-32) Anion Gap 5 mmol/L (5-15) Blood Urea Nitrogen 16 mg/dL (7-18) Creatinine 0.7 MG/DL (0.55-1.30) Estimat Glomerular Filtration Rate > 60 mL/min (>60) Glucose Level 191 MG/DL (74-106) #H Calcium Level 7.8 MG/DL (8.5-10.1) L Magnesium Level 1.8 MG/DL (1.8-2.4) Random Vancomycin Level 12.3 ug/mL Plan Problems: (1) Non-STEMI (non-ST elevated myocardial infarction) (2) Fever (3) Sacral decubitus ulcer Assessment & Plan: Pt presented on admission with multiple pressure injuries.Full thickness sacral pressure injury with undermining. Base of wound is beefy red. Bone is palpable.Borders red and flat. Darker skin tone periwound without erythema or induration. (L)8cm x (W)7.5cm x(D)3cm ,Undermining 7-5 by 5.5cm@ 8 o'clock. No odor noted .Small amt serous exudate noted. Partially opened DTPI L ischium.Base of wound dark brown. Areas that are fluctuant, with scattered openings that are viable within base of wound.Periwound without erythema or induration. (L)7.5cm x (W)4.2cmPartial thickness pressure injury noted to posterior Upper L thigh (L)0.6cm x (W) 0.5cm.Base of wound is moist -viable.No odor or exudate noted. Dry peeling skin without erythema periwound. Partially opened DTPI lateral L Tibia. Base of wound with 40% pink granulation otherwise with 60% soft urbina slough. Small amt non-odorous exudate noted. (L) 4.3cm x (W)4.2cm. L heel pressure injury with 80% mixed dry eschar and slough,20% pink granulation. No odor or exudate noted.Periwound is fluctuant but blanchable. Dark skin tone without induration or fluctuance noted to R ischium. Scattered partial thickness openings within affected area of discoloration.Full thickness pressure injury Lateral R malleolus. Base of wound erythematous with trace amt Biofilm.Small amt non-odorous serous exudate noted.Erythema noted along borders and periwound.No odor noted.(L)1cm x (W)1.2cm. Blood filled blister noted to lateral R heel. Base of wound is purple and fluctuant. Non-blanchable erythema with fluctuance noted periwound. (L)(L)2cm x (W)2.5cm. Tx.Plan: Cleanse sacral wound with Saline. Loosely pack with Hydrogel impregnated kerlix.Apply Triad paste periwound. Cover with Optifoam drsg. Change Daily and PRN. Cleanse L Ischium with Saline. Apply Triad Paste. Cover with Optifoam drsg. Change every 3 days and prn. Cleanse lateral tibia with Saline. Apply Therahoney. Cavilon Skin Barrier Periwound. Cover with Optifoam drsg. Change every 3 days and prn. Cleanse L heel with Saline. Apply Therahoney. Apply Cavilon Skin Barrier periwound. Cover with Optifoam drsg. Change every 3 days and prn. Apply Triad Paste to R ischium . Cover with Optifoam drsg. Change every 3 days and prn. Cleanse R lateral Malleolus with Saline. Apply Therahoney. Apply Cavilon Periwound. Cover with Optifoam drsg Change every 3 days and prn. Apply Cavilon Skin Barrier to R heel . Cover with Optifoam drsg. Change every 7 days and prn. APM/SELENA Mattress overlay. Reposition at least every 2hours or as tolerated. (4) Sepsis Assessment & Plan: Cont with IV Abx CXR noted AM labs ordered labs noted exam thus far stable wounds being cared for overall prognosis guarded DAILY ESTIMATED NEEDS: Needs based on Wounds, sepsis [employer]ITY [employer]ACH ADVOCATE TF/ 76kg 25-30 kcals/kg 1606-8409 total kcals 1.5-2.0 g protein/kg 114-152 g total protein 25-30 mL/kg 1536-5643 total fluid mLs NUTRITION DIAGNOSIS: 1) Increased kcal and protein needs r/t wound healing and sepsis as evidenced by pt adm w/ multiple wounds, including stage 4, stage 3, stage 2, DTI's, unstageable wounds, refer to WC eval, pt septic w/ critically elev wbc (43.3*), elev LA and RR. 2) Swallowing difficulty r/t dysphagia and h/o CVA as evidenced by pt is PEG dep. CURRENT TF:NPO ENTERAL NUTRITION RECOMMENDATIONS: Glucerna 1.5 @55ml/hr x24 hrs + Prosource 1pkt daily to provide 1320ml, 1980 kcal, 109g +11g prot, 1002ml free H2O - With HEMODYNAMIC STABILTY and as medically appropriate , start glucerna 1.5 @ 25ml/hr, advance as tolerated 10ml/hr q 4-6 hrs to goal - Add Prosource 1pkt QD to meet protein needs - Flush per MD. HOB over 30 degrees WITHOUT HEMODYNAMIC STABILITY, rec trophic feeding of Glucerna 1.5 @ 15ml/hr x 24 hrs ADDITIONAL RECOMMENDATIONS: 1) Wound care: add Vit C 500mg QD, Rafael 1pkt BID : TF @ goal will provide 100% RDI 2) Per SNF, pt's HT=5'10", BZ=[id number] (obtained 06/12/18) 3) Re-calibrated bedscale wt, weekly wt monitoring 4) Monitor HD stability 5) Monitor lytes, replete as needed (low mag) (5) Acute encephalopathy (6) Septic shock (7) Leukocytosis (8) Acute kidney injury Tonio Raza July 03, 2018 13:04
--- NOTE | 2018-07-03 14:20 | General Progress Note ---
Assessment/Plan Status: deteriorating Assessment/Plan: #Acute metabolic encephalopathy #Septic shock suspected to be due to infected pressure ulcers #Gram negative bacteremia #Acute metabolic encephalopathy #Functional quadriplegia #Sacral pressure ulcers,present on admission -continue ICU level of care while on Levophed -Antibiotics broadened as per ID recs - added amikacin, monitor drug levels and renal function -f/u CT A/P, still too unstable to go to scanner -f/u stool C. diff -continue IV fluids -monitor daily labs -Supportive care -Fall precautions -Aspiration precautions -Surgical consult for pressure ulcers #DARRIAN secondary to ATN #Hyponatremia #Hypomagnesemia -improved renal function today -continue IV hydration and treatment of sepsis -replace electrolytes prn -Nephrology following #Hypotension #Type 2 NSTEMI from demand ischemia from septic shock -continue supportive care -cardiology consult -cardiac monitoring -serial troponin #Type 2 DM, uncontrolled -start ISS VTE PPx Full Code I spent a total of 36 mins of critical care time, reviewing telemetry data, pressor requirement and vent settings in a critically ill patient requiring ventilator support Subjective Date patient seen: July 03, 2018 Time patient seen: 14:18 ROS Limited/Unobtainable: Yes Allergies: Coded Allergies: No Known Allergies (Unverified , 09/29/17) Subjective Pt intubated and partially sedated. Opens eyes to verbal stim. remains on vasopressors and intubated. Objective Last 24 Hour Vital Signs Date Time Temp Pulse Resp B/P (MAP) Pulse Ox O2 Delivery O2 Flow Rate FiO2 07/03/18 13:30 84 28 111/57 (75) 100 07/03/18 13:00 97.8 88 26 119/65 (83) 100 07/03/18 12:30 83 27 114/63 (80) 100 07/03/18 12:11 104/63 07/03/18 12:00 83 07/03/18 12:00 Nasal Cannula 3.0 07/03/18 12:00 84 26 103/63 (76) 100 07/03/18 12:00 3.0 07/03/18 11:30 86 30 113/58 (76) 100 07/03/18 11:00 85 30 114/61 (78) 100 07/03/18 10:30 86 30 141/64 (89) 100 07/03/18 10:00 85 30 119/65 (83) 100 07/03/18 09:30 87 27 124/71 (88) 100 07/03/18 09:00 86 27 119/70 (86) 97 07/03/18 08:30 85 27 128/67 (87) 100 07/03/18 08:00 85 07/03/18 08:00 3.0 07/03/18 08:00 86 27 128/70 (89) 97 07/03/18 08:00 Nasal Cannula 3.0 07/03/18 07:30 99.2 87 27 121/68 (85) 99 07/03/18 07:00 88 27 114/66 (82) 97 07/03/18 06:30 86 27 112/60 (77) 97 07/03/18 06:00 88 28 116/60 (78) 97 07/03/18 06:00 116/60 07/03/18 05:30 90 26 107/64 (78) 98 07/03/18 05:00 87 26 110/60 (77) 99 07/03/18 05:00 110/60 07/03/18 04:30 123/62 07/03/18 04:30 91 29 100/53 (69) 98 07/03/18 04:00 97.9 91 26 87/48 (61) 99 07/03/18 04:00 3.0 07/03/18 04:00 87/48 07/03/18 04:00 Nasal Cannula 3.0 07/03/18 03:30 89 27 113/60 (77) 99 07/03/18 03:02 91 07/03/18 03:00 107/57 07/03/18 03:00 93 26 107/57 (74) 96 07/03/18 02:30 91 26 106/55 (72) 93 07/03/18 02:00 107/61 07/03/18 02:00 89 25 107/61 (76) 99 07/03/18 01:30 90 25 100/58 (72) 97 07/03/18 01:00 112/51 07/03/18 01:00 88 25 112/51 (71) 99 07/03/18 00:30 92 24 99/55 (70) 100 07/03/18 00:00 Nasal Cannula 3.0 07/03/18 00:00 115/59 5/4/19 00:00 98.5 86 22 115/59 (77) 100 07/03/18 00:00 3.0 07/02/18 23:30 94 25 110/58 (75) 100 07/02/18 23:01 95 07/02/18 23:00 104/51 07/02/18 23:00 93 28 104/51 (68) 99 07/02/18 22:30 93 27 104/69 (81) 100 07/02/18 22:26 108/62 07/02/18 22:00 101 28 89/54 (66) 97 07/02/18 22:00 89/54 07/02/18 21:30 94 26 108/66 (80) 98 07/02/18 21:00 102/61 07/02/18 21:00 96 27 102/61 (75) 98 07/02/18 21:00 3.0 07/02/18 20:30 96 27 99/61 (74) 98 07/02/18 20:00 101/57 07/02/18 20:00 97.7 96 27 101/57 (72) 98 07/02/18 20:00 Nasal Cannula 3.0 07/02/18 20:00 3.0 07/02/18 19:39 93 07/02/18 19:30 96 26 98/61 (73) 99 07/02/18 19:09 96 22 Nasal Cannula 3.0 32 07/02/18 19:09 Nasal Cannula 3.0 32 07/02/18 19:09 99 Nasal Cannula 3.0 32 07/02/18 19:00 96 23 108/65 (79) 99 07/02/18 19:00 108/65 07/02/18 18:30 99 25 97/50 (66) 96 07/02/18 18:00 98/57 07/02/18 18:00 99 25 98/57 (71) 100 07/02/18 17:30 99 26 98/59 (72) 99 07/02/18 17:00 99 27 101/58 (72) 98 07/02/18 17:00 103/62 07/02/18 16:30 98 29 103/62 (76) 97 07/02/18 16:00 98.2 99 26 107/60 (76) 98 07/02/18 16:00 Nasal Cannula 3.0 07/02/18 16:00 107/60 07/02/18 16:00 3.0 07/02/18 15:47 101 07/02/18 15:37 106/63 07/02/18 15:30 101 26 105/61 (76) 98 07/02/18 15:00 102 26 105/63 (77) 98 07/02/18 15:00 105/63 07/02/18 14:30 103 27 106/60 (75) 99 Intake and Output 07/02/18 07/03/18 19:00 07:00 Intake Total 2091.5 ml 1815.0 ml Output Total 915 ml 705 ml Balance 1176.5 ml 1110.0 ml Intake IV Total 2091.5 ml 1815.0 ml Output Urine Total 915 ml 705 ml Laboratory Tests 07/02/18 14:30: Lactic Acid Level 2.50H, Troponin I 0.080H 07/02/18 17:15: Haptoglobin [Pending], Prothrombin Time 13.6H, Prothromb Time International Ratio 1.3H, Fibrinogen 566H, Iron Level 5L, Total Iron Binding Capacity 132L, Percent Iron Saturation 4L, Unsaturated Iron Binding 127, Ferritin 381, Lactate Dehydrogenase 166, Vitamin B12 Level 1301H, Thyroid Stimulating Hormone (TSH) 3.655 07/02/18 22:10: Lactic Acid Level 1.40, Troponin I 0.060H, Random Amikacin Level 8.6 07/03/18 05:35: White Blood Count 26.1*H, Red Blood Count 3.51L, Hemoglobin 8.6L, Hematocrit 26.2L, Mean Corpuscular Volume 75L, Mean Corpuscular Hemoglobin 24.4L, Mean Corpuscular Hemoglobin Concent 32.7, Red Cell Distribution Width 18.2H, Platelet Count 277, Mean Platelet Volume 7.7, Neutrophils (%) (Auto) , Lymphocytes (%) (Auto) , Monocytes (%) (Auto) , Eosinophils (%) (Auto) , Basophils (%) (Auto) , Differential Total Cells Counted 100, Neutrophils % ( Manual) 85H, Lymphocytes % (Manual) 4L, Monocytes % (Manual) 2, Eosinophils % ( Manual) 0, Basophils % (Manual) 0, Band Neutrophils 9H, Platelet Estimate Adequate, Platelet Morphology Normal, Hypochromasia 1+, Anisocytosis 1+, Microcytosis 1+, Sodium Level 139, Potassium Level 3.3L, Chloride Level 106, Carbon Dioxide Level 28, Anion Gap 5, Blood Urea Nitrogen 16, Creatinine 0.7, Estimat Glomerular Filtration Rate > 60, Glucose Level 191#H, Calcium Level 7.8L , Magnesium Level 1.8, Random Vancomycin Level 12.3 Height (Feet): 5 Height (Inches): 8.00 Weight (Pounds): 172 Objective General: +intubated Head: normocephalic, without obvious abnormality, atraumatic Eyes: conjunctivae/corneas clear. PERRL, EOM's intact Throat: +intubated Neck: supple, symmetrical, trachea midline, and no JVD Lungs: clear to auscultation bilaterally Heart: regular rate and rhythm, S1, S2 normal, no murmur, click, rub or gallop Abdomen: soft, non-tender, non-distended, bowel sounds normal; no masses or organomegaly Extremities: extremities normal, atraumatic, no cyanosis or edema Pulses: 2+ and symmetric Skin: skin color, texture, turgor normal; no rashes or lesions David Lindsey MD July 03, 2018 14:20
--- NOTE | 2018-07-03 14:23 | NUR ---
NURSE NOTES: Turned and repositioned. Kept dry and clean. No distress noted.
--- NOTE | 2018-07-03 14:37 | Cardiology Progress Note ---
Assessment/Plan Status: stable Assessment/Plan Assessment/Plan Assessment/Plan: #Acute metabolic encephalopathy #Septic shock suspected to be due to infected pressure ulcers #Acute metabolic encephalopathy #Functional quadriplegia #Sacral pressure ulcers,present on admission #DARRIAN secondary to ATN #Hyponatremia #Hypotension #Type 2 NSTEMI from demand ischemia from septic shock # Diabetes # Hx of stroke Elevated troponin -Continue to trend -Etiology likely sepsis -Defer cardiac cath or stress test at this time Hypotension -Continue pressors, wean as tolerated -Add midodrine prn -IV fluids DM -Insulin sliding scale Hypertension -Hold medications Hyperlipidemia -statin sacral uler -surgery consult I spent a total of 36 mins of critical care time, reviewing telemetry data, pressor requirement and vent settings in a critically ill patient requiring ventilator support Subjective Cardiovascular: Reports: no symptoms Respiratory: Reports: no symptoms Gastrointestinal/Abdominal: Reports: no symptoms Genitourinary: Reports: no symptoms Subjective No fevers, wbc trending down, remains on levophed but titrating down, CXR clear Objective Last 24 Hour Vital Signs Date Time Temp Pulse Resp B/P (MAP) Pulse Ox O2 Delivery O2 Flow Rate FiO2 07/03/18 13:30 84 28 111/57 (75) 100 07/03/18 13:00 97.8 88 26 119/65 (83) 100 07/03/18 12:30 83 27 114/63 (80) 100 07/03/18 12:11 104/63 07/03/18 12:00 83 07/03/18 12:00 Nasal Cannula 3.0 07/03/18 12:00 84 26 103/63 (76) 100 07/03/18 12:00 3.0 07/03/18 11:30 86 30 113/58 (76) 100 07/03/18 11:00 85 30 114/61 (78) 100 07/03/18 10:30 86 30 141/64 (89) 100 07/03/18 10:00 85 30 119/65 (83) 100 07/03/18 09:30 87 27 124/71 (88) 100 07/03/18 09:00 86 27 119/70 (86) 97 07/03/18 08:30 85 27 128/67 (87) 100 07/03/18 08:00 85 07/03/18 08:00 3.0 07/03/18 08:00 86 27 128/70 (89) 97 07/03/18 08:00 Nasal Cannula 3.0 07/03/18 07:30 99.2 87 27 121/68 (85) 99 07/03/18 07:00 88 27 114/66 (82) 97 07/03/18 06:30 86 27 112/60 (77) 97 07/03/18 06:00 88 28 116/60 (78) 97 07/03/18 06:00 116/60 07/03/18 05:30 90 26 107/64 (78) 98 07/03/18 05:00 87 26 110/60 (77) 99 07/03/18 05:00 110/60 07/03/18 04:30 123/62 07/03/18 04:30 91 29 100/53 (69) 98 07/03/18 04:00 97.9 91 26 87/48 (61) 99 07/03/18 04:00 3.0 07/03/18 04:00 87/48 07/03/18 04:00 Nasal Cannula 3.0 07/03/18 03:30 89 27 113/60 (77) 99 07/03/18 03:02 91 07/03/18 03:00 107/57 07/03/18 03:00 93 26 107/57 (74) 96 07/03/18 02:30 91 26 106/55 (72) 93 07/03/18 02:00 107/61 07/03/18 02:00 89 25 107/61 (76) 99 07/03/18 01:30 90 25 100/58 (72) 97 07/03/18 01:00 112/51 07/03/18 01:00 88 25 112/51 (71) 99 07/03/18 00:30 92 24 99/55 (70) 100 07/03/18 00:00 Nasal Cannula 3.0 07/03/18 00:00 115/59 07/03/18 00:00 98.5 86 22 115/59 (77) 100 07/03/18 00:00 3.0 07/02/18 23:30 94 25 110/58 (75) 100 07/02/18 23:01 95 07/02/18 23:00 104/51 07/02/18 23:00 93 28 104/51 (68) 99 5/3/19 22:30 93 27 104/69 (81) 100 07/02/18 22:26 108/62 07/02/18 22:00 101 28 89/54 (66) 97 07/02/18 22:00 89/54 07/02/18 21:30 94 26 108/66 (80) 98 07/02/18 21:00 102/61 07/02/18 21:00 96 27 102/61 (75) 98 07/02/18 21:00 3.0 07/02/18 20:30 96 27 99/61 (74) 98 07/02/18 20:00 101/57 07/02/18 20:00 97.7 96 27 101/57 (72) 98 07/02/18 20:00 Nasal Cannula 3.0 07/02/18 20:00 3.0 07/02/18 19:39 93 07/02/18 19:30 96 26 98/61 (73) 99 07/02/18 19:09 96 22 Nasal Cannula 3.0 32 07/02/18 19:09 Nasal Cannula 3.0 32 07/02/18 19:09 99 Nasal Cannula 3.0 32 07/02/18 19:00 96 23 108/65 (79) 99 07/02/18 19:00 108/65 07/02/18 18:30 99 25 97/50 (66) 96 07/02/18 18:00 98/57 07/02/18 18:00 99 25 98/57 (71) 100 07/02/18 17:30 99 26 98/59 (72) 99 07/02/18 17:00 99 27 101/58 (72) 98 07/02/18 17:00 103/62 07/02/18 16:30 98 29 103/62 (76) 97 07/02/18 16:00 98.2 99 26 107/60 (76) 98 07/02/18 16:00 Nasal Cannula 3.0 07/02/18 16:00 107/60 07/02/18 16:00 3.0 07/02/18 15:47 101 07/02/18 15:37 106/63 07/02/18 15:30 101 26 105/61 (76) 98 07/02/18 15:00 102 26 105/63 (77) 98 5/3/19 15:00 105/63 General Appearance: no apparent distress EENT: PERRL/EOMI, normal ENT inspection, TMs normal, pharynx normal Neck: non-tender, normal alignment, supple, normal inspection, no JVD Rhythm: NSR Cardiovascular: normal peripheral pulses, normal rate Respiratory/Chest: chest wall non-tender, accessory muscle use, crackles/rales Abdomen: normal bowel sounds, non tender, soft, no organomegaly, no mass Extremities: non-pitting, slow capillary refill Neurologic: abnormal CN, motor weakness, sensory deficit Intake and Output 07/02/18 07/03/18 19:00 07:00 Intake Total 2091.5 ml 1815.0 ml Output Total 915 ml 705 ml Balance 1176.5 ml 1110.0 ml Intake IV Total 2091.5 ml 1815.0 ml Output Urine Total 915 ml 705 ml Laboratory Tests Test 07/02/18 17:15 07/02/18 22:10 07/03/18 05:35 Haptoglobin Pending Prothrombin Time 13.6 SEC (9.30-11.50) H Prothromb Time International Ratio 1.3 (0.9-1.1) H Fibrinogen 566 mg/dL (200-400) H Iron Level 5 ug/dL (50-175) L Total Iron Binding Capacity 132 ug/dL (250-450) L Percent Iron Saturation 4 % (15-50) L Unsaturated Iron Binding 127 ug/dL (112-346) Ferritin 381 NG/ML (8-388) Lactate Dehydrogenase 166 U/L (81-234) Vitamin B12 Level 1301 PG/ML (193-986) H Thyroid Stimulating Hormone (TSH) 3.655 uiU/mL (0.358-3.740) Lactic Acid Level 1.40 mmol/L (0.4-2.0) Troponin I 0.060 ng/mL (0.000-0.056) Random Amikacin Level 8.6 ug/mL White Blood Count 26.1 K/UL (4.8-10.8) *H Red Blood Count 3.51 M/UL (4.70-6.10) L Hemoglobin 8.6 G/DL (14.2-18.0) L Hematocrit 26.2 % (42.0-52.0) L Mean Corpuscular Volume 75 FL (80-99) L Mean Corpuscular Hemoglobin 24.4 PG (27.0-31.0) L Mean Corpuscular Hemoglobin Concent 32.7 G/DL (32.0-36.0) Red Cell Distribution Width 18.2 % (11.6-14.8) H Platelet Count 277 K/UL (150-450) Mean Platelet Volume 7.7 FL (6.5-10.1) Neutrophils (%) (Auto) % (45.0-75.0) Lymphocytes (%) (Auto) % (20.0-45.0) Monocytes (%) (Auto) % (1.0-10.0) Eosinophils (%) (Auto) % (0.0-3.0) Basophils (%) (Auto) % (0.0-2.0) Differential Total Cells Counted 100 Neutrophils % (Manual) 85 % (45-75) H Lymphocytes % (Manual) 4 % (20-45) L Monocytes % (Manual) 2 % (1-10) Eosinophils % (Manual) 0 % (0-3) Basophils % (Manual) 0 % (0-2) Band Neutrophils 9 % (0-8) H Platelet Estimate Adequate Platelet Morphology Normal Hypochromasia 1+ Anisocytosis 1+ Microcytosis 1+ Sodium Level 139 MMOL/L (136-145) Potassium Level 3.3 MMOL/L (3.5-5.1) L Chloride Level 106 MMOL/L (98-107) Carbon Dioxide Level 28 MMOL/L (21-32) Anion Gap 5 mmol/L (5-15) Blood Urea Nitrogen 16 mg/dL (7-18) Creatinine 0.7 MG/DL (0.55-1.30) Estimat Glomerular Filtration Rate > 60 mL/min (>60) Glucose Level 191 MG/DL (74-106) #H Calcium Level 7.8 MG/DL (8.5-10.1) L Magnesium Level 1.8 MG/DL (1.8-2.4) Random Vancomycin Level 12.3 ug/mL Microbiology Date/Time Source Procedure Growth Status 07/01/18 11:15 Blood Blood Culture - Preliminary Gram Negative Keo Staphylococcus Sp Coag Neg Resulted 07/01/18 11:00 Blood Blood Culture - Preliminary Gram Negative Keo Resulted 07/01/18 11:00 Urine,Clean Catch Urine Culture - Preliminary Gram Negative Keo Resulted 07/01/18 20:00 Rectum Received Inocente Ponce MD July 03, 2018 14:37
--- NOTE | 2018-07-03 15:06 | Infectious Diseases Prog Note ---
Assessment/Plan Assessment/Plan ASSESSMENT AND PLAN: 1. gram neg uti/pyelonephritis, gram neg bacteremia, sepsis, shock, leukocytosis , fevers, sacral wound is clean - zosyn and amikacin, discontinue vancomycin - check blood cultures, labs, check urine culture - doubt sacral wound sepsis source - continue local wound care per surgery recommendations - chest x-ray with atx - assorter laundry blood culture is likely contaminant 2. Acute kidney injury with elevated creatinine. 3. Anemia. 4. Diabetes. 5. Hypertension. 6. Hyperlipidemia. 7. Blood sugar and blood pressure treatment primary for diabetes and hypertension. 8. CVA. 9. TIA. 10. Weakness. 11. Skin care protocol. 12. Gastroesophageal reflux disease. 13. Quadriplegia. 14. Dysphagia. 15. Dyslipidemia. 16. No known allergies. 17. Social history is negative. 18. Family history is noncontributory. 19. MAR was noted. 20. Case was discussed with RN. 21. Past medical history is noted. 22. Continue treatment per primary consultants. Subjective Constitutional: Reports: fatigue, other - + pressors ; Denies: fever HEENT: Reports: congestion - mild Respiratory: Reports: shortness of breath - mild Cardiovascular: Denies: chest pain Gastrointestinal/Abdominal: Denies: nausea, vomiting, diarrhea Genitourinary: Reports: other - + parks Neurologic: Denies: headache Psychiatric: Reports: other - na Skin: Denies: rash Hematologic: Denies: bleeding Musculoskeletal: Denies: pain Allergies: Coded Allergies: No Known Allergies (Unverified , 09/29/17) Objective Vital Signs Last 24 Hour Vital Signs Date Time Temp Pulse Resp B/P (MAP) Pulse Ox O2 Delivery O2 Flow Rate FiO2 07/03/18 13:30 84 28 111/57 (75) 100 07/03/18 13:00 97.8 88 26 119/65 (83) 100 07/03/18 12:30 83 27 114/63 (80) 100 07/03/18 12:11 104/63 07/03/18 12:00 83 07/03/18 12:00 Nasal Cannula 3.0 07/03/18 12:00 84 26 103/63 (76) 100 07/03/18 12:00 3.0 07/03/18 11:30 86 30 113/58 (76) 100 07/03/18 11:00 85 30 114/61 (78) 100 07/03/18 10:30 86 30 141/64 (89) 100 07/03/18 10:00 85 30 119/65 (83) 100 07/03/18 09:30 87 27 124/71 (88) 100 07/03/18 09:00 86 27 119/70 (86) 97 07/03/18 08:30 85 27 128/67 (87) 100 07/03/18 08:00 85 07/03/18 08:00 3.0 07/03/18 08:00 86 27 128/70 (89) 97 07/03/18 08:00 Nasal Cannula 3.0 07/03/18 07:30 99.2 87 27 121/68 (85) 99 07/03/18 07:00 88 27 114/66 (82) 97 07/03/18 06:30 86 27 112/60 (77) 97 07/03/18 06:00 88 28 116/60 (78) 97 07/03/18 06:00 116/60 07/03/18 05:30 90 26 107/64 (78) 98 07/03/18 05:00 87 26 110/60 (77) 99 07/03/18 05:00 110/60 07/03/18 04:30 123/62 07/03/18 04:30 91 29 100/53 (69) 98 07/03/18 04:00 97.9 91 26 87/48 (61) 99 07/03/18 04:00 3.0 07/03/18 04:00 87/48 07/03/18 04:00 Nasal Cannula 3.0 07/03/18 03:30 89 27 113/60 (77) 99 07/03/18 03:02 91 07/03/18 03:00 107/57 07/03/18 03:00 93 26 107/57 (74) 96 07/03/18 02:30 91 26 106/55 (72) 93 07/03/18 02:00 107/61 07/03/18 02:00 89 25 107/61 (76) 99 07/03/18 01:30 90 25 100/58 (72) 97 07/03/18 01:00 112/51 07/03/18 01:00 88 25 112/51 (71) 99 07/03/18 00:30 92 24 99/55 (70) 100 07/03/18 00:00 Nasal Cannula 3.0 07/03/18 00:00 115/59 07/03/18 00:00 98.5 86 22 115/59 (77) 100 07/03/18 00:00 3.0 07/02/18 23:30 94 25 110/58 (75) 100 07/02/18 23:01 95 07/02/18 23:00 104/51 07/02/18 23:00 93 28 104/51 (68) 99 07/02/18 22:30 93 27 104/69 (81) 100 07/02/18 22:26 108/62 07/02/18 22:00 101 28 89/54 (66) 97 07/02/18 22:00 89/54 07/02/18 21:30 94 26 108/66 (80) 98 07/02/18 21:00 102/61 07/02/18 21:00 96 27 102/61 (75) 98 07/02/18 21:00 3.0 07/02/18 20:30 96 27 99/61 (74) 98 07/02/18 20:00 101/57 07/02/18 20:00 97.7 96 27 101/57 (72) 98 07/02/18 20:00 Nasal Cannula 3.0 07/02/18 20:00 3.0 07/02/18 19:39 93 07/02/18 19:30 96 26 98/61 (73) 99 07/02/18 19:09 96 22 Nasal Cannula 3.0 32 07/02/18 19:09 Nasal Cannula 3.0 32 07/02/18 19:09 99 Nasal Cannula 3.0 32 07/02/18 19:00 96 23 108/65 (79) 99 07/02/18 19:00 108/65 07/02/18 18:30 99 25 97/50 (66) 96 07/02/18 18:00 98/57 07/02/18 18:00 99 25 98/57 (71) 100 07/02/18 17:30 99 26 98/59 (72) 99 07/02/18 17:00 99 27 101/58 (72) 98 07/02/18 17:00 103/62 07/02/18 16:30 98 29 103/62 (76) 97 07/02/18 16:00 98.2 99 26 107/60 (76) 98 07/02/18 16:00 Nasal Cannula 3.0 07/02/18 16:00 107/60 07/02/18 16:00 3.0 07/02/18 15:47 101 07/02/18 15:37 106/63 07/02/18 15:30 101 26 105/61 (76) 98 07/02/18 15:00 102 26 105/63 (77) 98 07/02/18 15:00 105/63 Height (Feet): 5 Height (Inches): 8.00 Weight (Pounds): 172 General Appearance: no acute distress HEENT: normocephalic, atraumatic, anicteric, mucous membranes moist Respiratory/Chest: lungs clear, normal breath sounds, no respiratory distress Cardiovascular: normal rate, regular rhythm, no gallop/murmur, no JVD Abdomen: normal bowel sounds, soft, non tender, no organomegaly, non distended Genitourinary: other - + parks - urine cloudy Extremities: no cyanosis Skin: no rash 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 The lungs and pleural spaces are otherwise clear. The heart size is normal. Impression: Left lateral basilar atelectasis No acute process otherwise Microbiology Date/Time Source Procedure Growth Status 07/01/18 11:15 Blood Blood Culture - Preliminary Gram Negative Keo Staphylococcus Sp Coag Neg Resulted 07/01/18 11:00 Urine,Clean Catch Urine Culture - Preliminary Gram Negative Keo Resulted 07/01/18 20:00 Rectum Received Microbiology Date/Time Source Procedure Growth Status 07/01/18 11:15 Blood Blood Culture - Preliminary Gram Negative Keo Staphylococcus Sp Coag Neg Resulted 07/01/18 11:00 Blood Blood Culture - Preliminary Gram Negative Keo Resulted 07/01/18 11:00 Urine,Clean Catch Urine Culture - Preliminary Gram Negative Keo Resulted 07/01/18 20:00 Rectum Received Laboratory Tests Test 07/02/18 17:15 07/02/18 22:10 07/03/18 05:35 Haptoglobin Pending Prothrombin Time 13.6 SEC (9.30-11.50) H Prothromb Time International Ratio 1.3 (0.9-1.1) H Fibrinogen 566 mg/dL (200-400) H Iron Level 5 ug/dL (50-175) L Total Iron Binding Capacity 132 ug/dL (250-450) L Percent Iron Saturation 4 % (15-50) L Unsaturated Iron Binding 127 ug/dL (112-346) Ferritin 381 NG/ML (8-388) Lactate Dehydrogenase 166 U/L (81-234) Vitamin B12 Level 1301 PG/ML (193-986) H Thyroid Stimulating Hormone (TSH) 3.655 uiU/mL (0.358-3.740) Lactic Acid Level 1.40 mmol/L (0.4-2.0) Troponin I 0.060 ng/mL (0.000-0.056) Random Amikacin Level 8.6 ug/mL White Blood Count 26.1 K/UL (4.8-10.8) *H Red Blood Count 3.51 M/UL (4.70-6.10) L Hemoglobin 8.6 G/DL (14.2-18.0) L Hematocrit 26.2 % (42.0-52.0) L Mean Corpuscular Volume 75 FL (80-99) L Mean Corpuscular Hemoglobin 24.4 PG (27.0-31.0) L Mean Corpuscular Hemoglobin Concent 32.7 G/DL (32.0-36.0) Red Cell Distribution Width 18.2 % (11.6-14.8) H Platelet Count 277 K/UL (150-450) Mean Platelet Volume 7.7 FL (6.5-10.1) Neutrophils (%) (Auto) % (45.0-75.0) Lymphocytes (%) (Auto) % (20.0-45.0) Monocytes (%) (Auto) % (1.0-10.0) Eosinophils (%) (Auto) % (0.0-3.0) Basophils (%) (Auto) % (0.0-2.0) Differential Total Cells Counted 100 Neutrophils % (Manual) 85 % (45-75) H Lymphocytes % (Manual) 4 % (20-45) L Monocytes % (Manual) 2 % (1-10) Eosinophils % (Manual) 0 % (0-3) Basophils % (Manual) 0 % (0-2) Band Neutrophils 9 % (0-8) H Platelet Estimate Adequate Platelet Morphology Normal Hypochromasia 1+ Anisocytosis 1+ Microcytosis 1+ Sodium Level 139 MMOL/L (136-145) Potassium Level 3.3 MMOL/L (3.5-5.1) L Chloride Level 106 MMOL/L (98-107) Carbon Dioxide Level 28 MMOL/L (21-32) Anion Gap 5 mmol/L (5-15) Blood Urea Nitrogen 16 mg/dL (7-18) Creatinine 0.7 MG/DL (0.55-1.30) Estimat Glomerular Filtration Rate > 60 mL/min (>60) Glucose Level 191 MG/DL (74-106) #H Calcium Level 7.8 MG/DL (8.5-10.1) L Magnesium Level 1.8 MG/DL (1.8-2.4) Random Vancomycin Level 12.3 ug/mL Current Medications Medications (Trade) Dose Ordered Sig/Patience Route PRN Reason Start Time Stop Time Status Last Admin Dose Admin Acetaminophen (Tylenol) 650 mg Q4H PRN RECTAL FEVER 07/01/18 14:45 07/31/18 14:44 Albuterol/ Ipratropium (Albuterol/ Ipratropium) 3 ml Q4H PRN HHN Shortness of Breath 07/01/18 14:45 07/06/18 14:44 Amikacin Protocol (Amikacin pharmacy to dose) 1 ea DAILY PRN MISC Per rx protocol 07/02/18 08:15 08/01/18 08:14 Amikacin Sulfate 1000 mg/Sodium Chloride 114 ml @ 228 mls/hr Q24H IV 07/03/18 11:00 07/10/18 10:59 07/03/18 11:36 Barium Sulfate (Readi-Cat 2) 450 ml NOW PRN ORAL Radiology Procedure 07/02/18 08:15 07/04/18 08:03 Chlorhexidine Gluconate (Cristine-Hex 2%) 1 applic DAILY@1999 TOPIC 07/01/18 20:00 07/31/18 19:59 07/02/18 19:56 Dextrose (Dextrose 50%) 25 ml Q30M PRN IV Hypoglycemia 07/02/18 10:45 08/01/18 10:44 Dextrose (Dextrose 50%) 50 ml Q30M PRN IV Hypoglycemia 07/02/18 10:45 08/01/18 10:44 Heparin Sodium (Porcine) (Heparin 5000 units/ml) 5,000 units EVERY 12 HOURS SUBQ 07/01/18 21:00 07/31/18 20:59 07/03/18 09:33 Insulin Aspart (NovoLOG) Q6HR SUBQ 07/03/18 13:00 08/02/18 12:59 07/03/18 13:53 Norepinephrine Bitartrate 4 mg/ Dextrose 250 ml @ 0 mls/hr Q24H IV 07/01/18 22:00 07/31/18 21:59 07/03/18 12:11 Ondansetron HCl (Zofran) 4 mg Q6H PRN IVP Nausea & Vomiting 07/01/18 14:45 07/31/18 14:44 07/01/18 18:23 Piperacillin Sod/ Tazobactam Sod 3.375 gm/Sodium Chloride 110 ml @ 27.5 mls/hr EVERY 8 HOURS IVPB 07/01/18 22:00 07/06/18 21:59 07/03/18 05:53 Potassium Chloride (K-Dur) 40 meq ONCE NGT 07/03/18 15:30 07/03/18 16:30 Sodium Chloride 1,000 ml @ 100 mls/hr Q10H IVLG 07/01/18 14:46 07/31/18 14:45 07/03/18 04:43 Vancomycin HCl (Vanco rx to dose) 1 ea DAILY PRN MISC Per rx protocol 07/01/18 14:45 07/31/18 14:44 Vancomycin HCl/ Dextrose 275 ml @ 183.333 mls/hr Q12HR IVPB 07/03/18 21:00 07/08/18 20:59 Gwendolyn Marquez MD July 03, 2018 15:06
--- NOTE | 2018-07-03 16:12 | NUR ---
NURSE NOTES: 40meq KCL given via GT. Titrated Levophed to keep MAP >60. BP 108/58 MAP 70. No distress noted.
--- NOTE | 2018-07-03 18:34 | NUR ---
NURSE NOTES: Turned off Levophed, BP 136/99 MAP 109. Deep sxn and ora care given. Turned and repositioned. No BM during shift. Dressing clean and intact. patient more alert and able to follow simple commands.
--- NOTE | 2018-07-03 19:25 | NUR ---
HAND-OFF: Report given to MARIA ELENA Carlton using SBAR.
--- NOTE | 2018-07-03 20:00 | NUR ---
NURSE NOTES: Received pt in no apparent distress;awake, alert, follow commands but aphasic. No breathing difficulty noted; pt on O2via NC at 3l/m and saturating 100%. Chest sounds with scattered rhonchi; coughs productively but unable to expectorate sputum. PICC on DONTRELL intact, IVF of NS infuses @100ml/h. GT intact but clamped;pt remains NPO. BP stable; pt had been off Levophed gtt since 1800H. SR on the scope; afebrile. FC intact, UOp 40-60ml/h. Wound dressings dry and intact. Will continue to monitor VS suma BP and restart pressors if becomes hypotensive again.
--- NOTE | 2018-07-03 20:46 | Pulmonolgy Critical Care Note ---
Critical Care - Asmt/Plan Assessment/Plan: 1. Shock/sepsis. 2. Scattered bilateral interstitial opacities, possible multilobar pneumonia. 3. Urinary tract infection. 4. History of MRSA pneumonia in the past. 5. Acute kidney injury. 6. Lactic acidosis. 7. Non ST-elevation myocardial infarction/troponinemia, likely demand ischemia. 8. Protein-calorie malnutrition. 9. Bacteremia 10. residential resident. 11. 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 12. History of tracheostomy in the past. 13. Dysphagia, status post G-tube treatment. Plan: -stop BiPAP, ABG in one hour -Abx per ID -f/u cultures and sensitivities -wean pressors -wound care Respiratory: CXR, other - bubipap Cardiac: continue to monitor HR/BP Renal: F/U I&O, keep IV fluid Gastrointestinal: continue feedings/current rate Neurologic: PRN Ativan, PRN Morphine Prophylaxis: Protonix, Heparin Disposition: keep in ICU Time Spent (Minutes): 50 Notes Reviewed: cardio, renal Discussed with: nurses Critical Care - Objective Last 24 Hour Vital Signs Date Time Temp Pulse Resp B/P (MAP) Pulse Ox O2 Delivery O2 Flow Rate FiO2 07/03/18 20:00 98 Nasal Cannula 3.0 32 07/03/18 20:00 Nasal Cannula 3.0 32 07/03/18 19:00 93 26 94/57 (69) 100 07/03/18 18:30 91 26 99/57 (71) 100 07/03/18 18:00 90 26 105/63 (77) 100 07/03/18 18:00 136/99 07/03/18 17:30 93 29 109/61 (77) 100 07/03/18 17:00 84 26 109/64 (79) 100 07/03/18 17:00 122/67 07/03/18 16:30 97.6 83 28 114/68 (83) 100 07/03/18 16:00 84 28 108/58 (75) 100 07/03/18 16:00 84 07/03/18 16:00 Nasal Cannula 3.0 07/03/18 16:00 108/58 07/03/18 16:00 3.0 07/03/18 15:30 85 28 102/63 (76) 100 07/03/18 15:00 84 26 103/55 (71) 100 07/03/18 15:00 106/59 07/03/18 14:30 85 27 111/66 (81) 100 07/03/18 14:00 108/64 07/03/18 14:00 85 28 108/64 (79) 100 07/03/18 13:30 84 28 111/57 (75) 100 07/03/18 13:00 97.8 88 26 119/65 (83) 100 07/03/18 13:00 119/65 07/03/18 12:30 83 27 114/63 (80) 100 07/03/18 12:11 104/63 07/03/18 12:00 83 07/03/18 12:00 Nasal Cannula 3.0 07/03/18 12:00 84 26 103/63 (76) 100 07/03/18 12:00 104/63 07/03/18 12:00 3.0 07/03/18 11:30 86 30 113/58 (76) 100 07/03/18 11:00 85 30 114/61 (78) 100 07/03/18 11:00 114/61 07/03/18 10:30 86 30 141/64 (89) 100 07/03/18 10:00 85 30 119/65 (83) 100 07/03/18 10:00 119/65 07/03/18 09:30 87 27 124/71 (88) 100 07/03/18 09:00 128/67 07/03/18 09:00 86 27 119/70 (86) 97 07/03/18 08:30 85 27 128/67 (87) 100 07/03/18 08:00 85 07/03/18 08:00 3.0 07/03/18 08:00 86 27 128/70 (89) 97 07/03/18 08:00 121/68 07/03/18 08:00 Nasal Cannula 3.0 07/03/18 07:30 99.2 87 27 121/68 (85) 99 07/03/18 07:00 114/66 07/03/18 07:00 88 27 114/66 (82) 97 07/03/18 06:30 86 27 112/60 (77) 97 07/03/18 06:00 88 28 116/60 (78) 97 5/4/19 06:00 116/60 07/03/18 05:30 90 26 107/64 (78) 98 07/03/18 05:00 87 26 110/60 (77) 99 07/03/18 05:00 110/60 07/03/18 04:30 123/62 07/03/18 04:30 91 29 100/53 (69) 98 07/03/18 04:00 97.9 91 26 87/48 (61) 99 07/03/18 04:00 3.0 07/03/18 04:00 87/48 07/03/18 04:00 Nasal Cannula 3.0 07/03/18 03:30 89 27 113/60 (77) 99 07/03/18 03:02 91 07/03/18 03:00 107/57 07/03/18 03:00 93 26 107/57 (74) 96 07/03/18 02:30 91 26 106/55 (72) 93 07/03/18 02:00 107/61 07/03/18 02:00 89 25 107/61 (76) 99 07/03/18 01:30 90 25 100/58 (72) 97 07/03/18 01:00 112/51 07/03/18 01:00 88 25 112/51 (71) 99 07/03/18 00:30 92 24 99/55 (70) 100 07/03/18 00:00 Nasal Cannula 3.0 07/03/18 00:00 115/59 07/03/18 00:00 98.5 86 22 115/59 (77) 100 07/03/18 00:00 3.0 07/02/18 23:30 94 25 110/58 (75) 100 07/02/18 23:01 95 07/02/18 23:00 104/51 07/02/18 23:00 93 28 104/51 (68) 99 07/02/18 22:30 93 27 104/69 (81) 100 07/02/18 22:26 108/62 07/02/18 22:00 101 28 89/54 (66) 97 07/02/18 22:00 89/54 07/02/18 21:30 94 26 108/66 (80) 98 07/02/18 21:00 102/61 07/02/18 21:00 96 27 102/61 (75) 98 07/02/18 21:00 3.0 Status: awake Condition: improving Neck: trach - ostomy Lungs: rhonchi Abdomen: soft, active bowel sounds Extremities: edema Micro: Microbiology Date/Time Source Procedure Growth Status 07/01/18 11:15 Blood Blood Culture - Preliminary Gram Negative Keo Staphylococcus Sp Coag Neg Resulted 07/01/18 11:00 Blood Blood Culture - Preliminary Gram Negative Keo Resulted 07/01/18 11:00 Urine,Clean Catch Urine Culture - Preliminary Gram Negative Keo Resulted 07/01/18 20:00 Rectum Received Accucheck: 131 Blood Sugars: BS controlled Critical Care - Subjective Condition: critical FI02: 32 Vent Support Mode: BiLevel Sputum Amount: Moderate I&O: Intake and Output 07/02/18 07/03/18 18:59 06:59 Intake Total 2119.0 ml 1787.5 ml Output Total 995 ml 705 ml Balance 1124.0 ml 1082.5 ml IV Total 2119.0 ml 1787.5 ml Output Urine Total 995 ml 705 ml Subjective: confused awake ostomy dressed off bipap at thsi tiem time no reports of cp nv or bleeding on IVf no fever Labs: Current Medications Medications (Trade) Dose Ordered Sig/Patience Route PRN Reason Start Time Stop Time Status Last Admin Dose Admin Acetaminophen (Tylenol) 650 mg Q4H PRN RECTAL FEVER 07/01/18 14:45 07/31/18 14:44 Albuterol/ Ipratropium (Albuterol/ Ipratropium) 3 ml Q4H PRN HHN Shortness of Breath 07/01/18 14:45 07/06/18 14:44 Amikacin Protocol (Amikacin pharmacy to dose) 1 ea DAILY PRN MISC Per rx protocol 07/02/18 08:15 08/01/18 08:14 Amikacin Sulfate 1000 mg/Sodium Chloride 114 ml @ 228 mls/hr Q24H IV 07/03/18 11:00 07/10/18 10:59 07/03/18 11:36 Barium Sulfate (Readi-Cat 2) 450 ml NOW PRN ORAL Radiology Procedure 07/02/18 08:15 07/04/18 08:03 Chlorhexidine Gluconate (Cristine-Hex 2%) 1 applic DAILY@1999 TOPIC 07/01/18 20:00 07/31/18 19:59 07/03/18 20:58 Dextrose (Dextrose 50%) 25 ml Q30M PRN IV Hypoglycemia 07/02/18 10:45 08/01/18 10:44 Dextrose (Dextrose 50%) 50 ml Q30M PRN IV Hypoglycemia 07/02/18 10:45 08/01/18 10:44 Heparin Sodium (Porcine) (Heparin 5000 units/ml) 5,000 units EVERY 12 HOURS SUBQ 07/01/18 21:00 07/31/18 20:59 07/03/18 21:00 Insulin Aspart (NovoLOG) Q6HR SUBQ 07/03/18 13:00 08/02/18 12:59 07/03/18 13:53 Norepinephrine Bitartrate 4 mg/ Dextrose 250 ml @ 0 mls/hr Q24H IV 07/01/18 22:00 07/31/18 21:59 07/03/18 12:11 Ondansetron HCl (Zofran) 4 mg Q6H PRN IVP Nausea & Vomiting 07/01/18 14:45 07/31/18 14:44 07/01/18 18:23 Piperacillin Sod/ Tazobactam Sod 3.375 gm/Sodium Chloride 110 ml @ 27.5 mls/hr EVERY 8 HOURS IVPB 07/01/18 22:00 07/06/18 21:59 07/03/18 14:54 Sodium Chloride 1,000 ml @ 100 mls/hr Q10H IVLG 07/01/18 14:46 07/31/18 14:45 07/03/18 16:46 Laboratory Tests Test 07/02/18 22:10 07/03/18 05:35 Lactic Acid Level 1.40 mmol/L (0.4-2.0) Troponin I 0.060 ng/mL (0.000-0.056) Random Amikacin Level 8.6 ug/mL White Blood Count 26.1 K/UL (4.8-10.8) *H Red Blood Count 3.51 M/UL (4.70-6.10) L Hemoglobin 8.6 G/DL (14.2-18.0) L Hematocrit 26.2 % (42.0-52.0) L Mean Corpuscular Volume 75 FL (80-99) L Mean Corpuscular Hemoglobin 24.4 PG (27.0-31.0) L Mean Corpuscular Hemoglobin Concent 32.7 G/DL (32.0-36.0) Red Cell Distribution Width 18.2 % (11.6-14.8) H Platelet Count 277 K/UL (150-450) Mean Platelet Volume 7.7 FL (6.5-10.1) Neutrophils (%) (Auto) % (45.0-75.0) Lymphocytes (%) (Auto) % (20.0-45.0) Monocytes (%) (Auto) % (1.0-10.0) Eosinophils (%) (Auto) % (0.0-3.0) Basophils (%) (Auto) % (0.0-2.0) Differential Total Cells Counted 100 Neutrophils % (Manual) 85 % (45-75) H Lymphocytes % (Manual) 4 % (20-45) L Monocytes % (Manual) 2 % (1-10) Eosinophils % (Manual) 0 % (0-3) Basophils % (Manual) 0 % (0-2) Band Neutrophils 9 % (0-8) H Platelet Estimate Adequate Platelet Morphology Normal Hypochromasia 1+ Anisocytosis 1+ Microcytosis 1+ Sodium Level 139 MMOL/L (136-145) Potassium Level 3.3 MMOL/L (3.5-5.1) L Chloride Level 106 MMOL/L (98-107) Carbon Dioxide Level 28 MMOL/L (21-32) Anion Gap 5 mmol/L (5-15) Blood Urea Nitrogen 16 mg/dL (7-18) Creatinine 0.7 MG/DL (0.55-1.30) Estimat Glomerular Filtration Rate > 60 mL/min (>60) Glucose Level 191 MG/DL (74-106) #H Calcium Level 7.8 MG/DL (8.5-10.1) L Magnesium Level 1.8 MG/DL (1.8-2.4) Random Vancomycin Level 12.3 ug/mL Camryn Hui DO July 03, 2018 20:46
[2018-07-03] MEDS: Dyna-Hex 2% Top Sol 2oz TOPIC SCH (20:58)
[2018-07-03] MEDS ORDERED: Vancomycin 1.25gm Premix IVPB SCH (21:00)
--- NOTE | 2018-07-03 22:00 | NUR ---
NURSE NOTES: suctioned via NT by RT and obtained thick yellow sputum. Oral care rendered. Weekly wound photos taken and redressed .
[2018-07-04] VITALS (24 sets, daily range): BP systolic 90–112; BP diastolic 46–74
--- NOTE | 2018-07-04 | NUR ---
NURSE NOTES: Remains awake but passive. Afebrile; BP stable
--- NOTE | 2018-07-04 02:00 | NUR ---
NURSE NOTES: HOB maintained >30 degrees. Suctioned orally, obtained thick yellow sputum; oral care done
--- NOTE | 2018-07-04 04:00 | NUR ---
NURSE NOTES: No BM, still NPO. Complete bed bath rendered. Wound dressings dry and intact. PICC patent. Afebrile, BP stable, NSR. Old trach site covered with clean and dry dressing.
[2018-07-04 04:43] LABS: BASOPHILS % (AUTO) 0.7 % (0.0-2.0); EOSINOPHILS % (AUTO) 3.1 % (0.0-3.0); HEMATOCRIT 27.4 % (42.0-52.0); HEMOGLOBIN 8.5 G/DL (14.2-18.0); MEAN CORPUSCULAR VOLUME 76 FL (80-99); MONOCYTES % (AUTO) 1.3 % (1.0-10.0); NEUTROPHILS % (AUTO) 84.9 % (45.0-75.0); PLATELET COUNT 259 K/UL (150-450); RED BLOOD COUNT 3.59 M/UL (4.70-6.10); RED CELL DISTRIBUTION WIDTH 18.1 % (11.6-14.8); WHITE BLOOD COUNT 13.4 K/UL (4.8-10.8)
[2018-07-04 05:08] LABS: ANION GAP 5 mmol/L (5-15); BLOOD UREA NITROGEN 14 mg/dL (7-18); CALCIUM 7.8 MG/DL (8.5-10.1); CARBON DIOXIDE 28 MMOL/L (21-32); CHLORIDE 106 MMOL/L (98-107); CREATININE 0.6 MG/DL (0.55-1.30); POTASSIUM 3.6 MMOL/L (3.5-5.1); SODIUM 139 MMOL/L (136-145)
[2018-07-04] MEDS: Piperacillin/Tazobactam 3.375 GM in NS 110 ML IVPB SCH ×3 (05:53→21:30)
[2018-07-04] MEDS: NovoLOG Insulin Flexpen SUBQ SCH ×4 (05:54→17:06)
--- NOTE | 2018-07-04 07:07 | NUR ---
HAND-OFF: Report given to Gladis Etienne RN.
--- NOTE | 2018-07-04 07:25 | NUR ---
NURSE NOTES: Received pt from MARIA ELENA Carlton. Patient is awake, able to follow simple commands, baseline aphasic. No distress noted. On 3LNC, Spo2 100%. Thick yellow secretions noted upon deep sxn with RT. Afebrile. NSR on secured entrance monitor. PEG clamped, NPO. PICC DONTRELL running NS@100cc/hr. No pressors. FC draining cloudy yellow urine with sediments to gravity. Dressings clean and intact. Bed locked, alarmed and in lowest position. Will continue plan of care.
--- NOTE | 2018-07-04 09:31 | NUR ---
NURSE NOTES: Received orders to start GTF. Following dietitian recommendations. Flushed 60cc free water and started Glucerna 1.5@15ml/hr. Goal is 55cc/hr. HOB 35 degrees.
[2018-07-04] MEDS: Heparin 5000 units/ml inj SUBQ SCH ×2 (09:37→21:05)
--- NOTE | 2018-07-04 10:33 | NUR ---
CASE MANAGEMENT: REVIEW SI: NSTEMI . SEPSIS T 97.6 HR 85 RR 26 BP 94/50 SAT 98% NC/3L WBC 13.4 H/H 8.5/27.4 IS: AMIKACIN IV Q24HR ZOSYN IV Q8HR LEVOPHED IV Q24HR NS IVF @ 100ML/HR ICU STATUS DCP: PATIENT IS FROM [facility]
[2018-07-04] MEDS ORDERED: Amikacin 1,000 MG in NS 110 ML IV SCH (11:00)
[2018-07-04] MEDS: Amikacin 1,000 MG in NS 110 ML IV SCH (11:32)
--- NOTE | 2018-07-04 12:50 | NUR ---
NURSE NOTES: Blood sugar 106, no coverage given. Patient awake, watching television. Turned and repositioned. Kept dry and clean. Oral care given.
--- NOTE | 2018-07-04 12:57 | Surgery Progress Note ---
Surgery Progress Note Subjective Additional Comments leukocytosis improved significantly today. labs noted awake, responsive. off bipap abg improved Objective Last 24 Hour Vital Signs Date Time Temp Pulse Resp B/P (MAP) Pulse Ox O2 Delivery O2 Flow Rate FiO2 07/04/18 12:00 98.6 91 26 104/74 (84) 100 07/04/18 12:00 91 07/04/18 12:00 Nasal Cannula 3.0 07/04/18 11:00 83 21 98/58 (71) 100 07/04/18 10:00 85 26 102/61 (75) 100 07/04/18 09:00 85 25 102/51 (68) 100 07/04/18 08:00 96 07/04/18 08:00 97.6 85 26 104/62 (76) 100 07/04/18 08:00 Nasal Cannula 3.0 07/04/18 07:04 83 26 94/50 (65) 100 07/04/18 06:40 98 Nasal Cannula 3.0 32 07/04/18 06:40 Nasal Cannula 3.0 32 07/04/18 06:40 95 20 Nasal Cannula 3.0 32 07/04/18 06:00 90 27 91/66 (74) 100 07/04/18 05:00 89 27 95/53 (67) 100 07/04/18 04:00 Nasal Cannula 3.0 07/04/18 04:00 90 07/04/18 04:00 98.0 90 26 94/56 (69) 100 07/04/18 03:00 86 28 96/56 (69) 99 07/04/18 02:00 87 29 96/60 (72) 100 07/04/18 01:00 86 32 95/55 (68) 100 07/04/18 00:00 97.9 90 29 90/46 (61) 100 07/04/18 00:00 90 07/04/18 00:00 Nasal Cannula 3.0 07/03/18 23:00 95 28 97/60 (72) 100 07/03/18 22:00 93 31 97/52 (67) 100 07/03/18 21:00 94 23 100/58 (72) 100 07/03/18 20:00 92 07/03/18 20:00 98 Nasal Cannula 3.0 32 07/03/18 20:00 98.7 92 26 97/67 (77) 100 07/03/18 20:00 92 20 Nasal Cannula 3.0 32 07/03/18 20:00 Nasal Cannula 3.0 32 07/03/18 20:00 Nasal Cannula 3.0 07/03/18 19:00 93 26 94/57 (69) 100 07/03/18 18:30 91 26 99/57 (71) 100 07/03/18 18:00 90 26 105/63 (77) 100 07/03/18 18:00 136/99 07/03/18 17:30 93 29 109/61 (77) 100 07/03/18 17:00 84 26 109/64 (79) 100 07/03/18 17:00 122/67 07/03/18 16:30 97.6 83 28 114/68 (83) 100 07/03/18 16:00 84 28 108/58 (75) 100 07/03/18 16:00 84 07/03/18 16:00 Nasal Cannula 3.0 07/03/18 16:00 108/58 07/03/18 16:00 3.0 07/03/18 15:30 85 28 102/63 (76) 100 07/03/18 15:00 84 26 103/55 (71) 100 07/03/18 15:00 106/59 07/03/18 14:30 85 27 111/66 (81) 100 07/03/18 14:00 108/64 07/03/18 14:00 85 28 108/64 (79) 100 07/03/18 13:30 84 28 111/57 (75) 100 07/03/18 13:00 97.8 88 26 119/65 (83) 100 07/03/18 13:00 119/65 I&O Intake and Output 07/03/18 07/04/18 19:00 07:00 Intake Total 1622.5 ml 1210.0 ml Output Total 1000 ml 525 ml Balance 622.5 ml 685.0 ml Intake Oral 0 ml Free Water 60 ml IV Total 1462.5 ml 1210.0 ml Other 100 ml Output Urine Total 1000 ml 525 ml Dressing: saturated Wound: clean Drains: other Cardiovascular: RSR Respiratory: clear Abdomen: soft, present bowel sounds, non-distended Extremities: no cyanosis Laboratory Tests Test 07/04/18 03:50 White Blood Count 13.4 K/UL (4.8-10.8) H Red Blood Count 3.59 M/UL (4.70-6.10) L Hemoglobin 8.5 G/DL (14.2-18.0) L Hematocrit 27.4 % (42.0-52.0) L Mean Corpuscular Volume 76 FL (80-99) L Mean Corpuscular Hemoglobin 23.6 PG (27.0-31.0) L Mean Corpuscular Hemoglobin Concent 31.0 G/DL (32.0-36.0) L Red Cell Distribution Width 18.1 % (11.6-14.8) H Platelet Count 259 K/UL (150-450) Mean Platelet Volume 7.4 FL (6.5-10.1) Neutrophils (%) (Auto) 84.9 % (45.0-75.0) H Lymphocytes (%) (Auto) 10.0 % (20.0-45.0) L Monocytes (%) (Auto) 1.3 % (1.0-10.0) Eosinophils (%) (Auto) 3.1 % (0.0-3.0) H Basophils (%) (Auto) 0.7 % (0.0-2.0) Sodium Level 139 MMOL/L (136-145) Potassium Level 3.6 MMOL/L (3.5-5.1) Chloride Level 106 MMOL/L (98-107) Carbon Dioxide Level 28 MMOL/L (21-32) Anion Gap 5 mmol/L (5-15) Blood Urea Nitrogen 14 mg/dL (7-18) Creatinine 0.6 MG/DL (0.55-1.30) Estimat Glomerular Filtration Rate > 60 mL/min (>60) Glucose Level 98 MG/DL (74-106) Calcium Level 7.8 MG/DL (8.5-10.1) L Plan Problems: (1) Non-STEMI (non-ST elevated myocardial infarction) (2) Fever (3) Sacral decubitus ulcer Assessment & Plan: Pt presented on admission with multiple pressure injuries.Full thickness sacral pressure injury with undermining. Base of wound is beefy red. Bone is palpable.Borders red and flat. Darker skin tone periwound without erythema or induration. (L)8cm x (W)7.5cm x(D)3cm ,Undermining 7-5 by 5.5cm@ 8 o'clock. No odor noted .Small amt serous exudate noted. Partially opened DTPI L ischium.Base of wound dark brown. Areas that are fluctuant, with scattered openings that are viable within base of wound.Periwound without erythema or induration. (L)7.5cm x (W)4.2cmPartial thickness pressure injury noted to posterior Upper L thigh (L)0.6cm x (W) 0.5cm.Base of wound is moist -viable.No odor or exudate noted. Dry peeling skin without erythema periwound. Partially opened DTPI lateral L Tibia. Base of wound with 40% pink granulation otherwise with 60% soft urbina slough. Small amt non-odorous exudate noted. (L) 4.3cm x (W)4.2cm. L heel pressure injury with 80% mixed dry eschar and slough,20% pink granulation. No odor or exudate noted.Periwound is fluctuant but blanchable. Dark skin tone without induration or fluctuance noted to R ischium. Scattered partial thickness openings within affected area of discoloration.Full thickness pressure injury Lateral R malleolus. Base of wound erythematous with trace amt Biofilm.Small amt non-odorous serous exudate noted.Erythema noted along borders and periwound.No odor noted.(L)1cm x (W)1.2cm. Blood filled blister noted to lateral R heel. Base of wound is purple and fluctuant. Non-blanchable erythema with fluctuance noted periwound. (L)(L)2cm x (W)2.5cm. Tx.Plan: Cleanse sacral wound with Saline. Loosely pack with Hydrogel impregnated kerlix.Apply Triad paste periwound. Cover with Optifoam drsg. Change Daily and PRN. Cleanse L Ischium with Saline. Apply Triad Paste. Cover with Optifoam drsg. Change every 3 days and prn. Cleanse lateral tibia with Saline. Apply Therahoney. Cavilon Skin Barrier Periwound. Cover with Optifoam drsg. Change every 3 days and prn. Cleanse L heel with Saline. Apply Therahoney. Apply Cavilon Skin Barrier periwound. Cover with Optifoam drsg. Change every 3 days and prn. Apply Triad Paste to R ischium . Cover with Optifoam drsg. Change every 3 days and prn. Cleanse R lateral Malleolus with Saline. Apply Therahoney. Apply Cavilon Periwound. Cover with Optifoam drsg Change every 3 days and prn. Apply Cavilon Skin Barrier to R heel . Cover with Optifoam drsg. Change every 7 days and prn. APM/SELENA Mattress overlay. Reposition at least every 2hours or as tolerated. (4) Sepsis Assessment & Plan: Cont with IV Abx CXR noted AM labs ordered labs noted exam thus far stable wounds being cared for overall prognosis guarded DAILY ESTIMATED NEEDS: Needs based on Wounds, sepsis [employer] TF/ 76kg 25-30 kcals/kg 9074-1015 total kcals 1.5-2.0 g protein/kg 114-152 g total protein 25-30 mL/kg 2176-2896 total fluid mLs NUTRITION DIAGNOSIS: 1) Increased kcal and protein needs r/t wound healing and sepsis as evidenced by pt adm w/ multiple wounds, including stage 4, stage 3, stage 2, DTI's, unstageable wounds, refer to WC eval, pt septic w/ critically elev wbc (43.3*), elev LA and RR. 2) Swallowing difficulty r/t dysphagia and h/o CVA as evidenced by pt is PEG dep. CURRENT TF:NPO ENTERAL NUTRITION RECOMMENDATIONS: Glucerna 1.5 @55ml/hr x24 hrs + Prosource 1pkt daily to provide 1320ml, 1980 kcal, 109g +11g prot, 1002ml free H2O - With HEMODYNAMIC STABILTY and as medically appropriate , start glucerna 1.5 @ 25ml/hr, advance as tolerated 10ml/hr q 4-6 hrs to goal - Add Prosource 1pkt QD to meet protein needs - Flush per MD. HOB over 30 degrees WITHOUT HEMODYNAMIC STABILITY, rec trophic feeding of Glucerna 1.5 @ 15ml/hr x 24 hrs ADDITIONAL RECOMMENDATIONS: 1) Wound care: add Vit C 500mg QD, Rafael 1pkt BID : TF @ goal will provide 100% RDI 2) Per SNF, pt's HT=5'10", VO=493mqq (obtained 06/12/18) 3) Re-calibrated bedscale wt, weekly wt monitoring 4) Monitor HD stability 5) Monitor lytes, replete as needed (low mag) (5) Acute encephalopathy (6) Septic shock (7) Leukocytosis (8) Acute kidney injury Tonio Raza July 04, 2018 12:57
--- NOTE | 2018-07-04 14:41 | NUR ---
NURSE NOTES: No signs of distress. Nasopharyngeal sxn given by RT. yellow sputum noted, collected and sent to lab for sputum culture.
--- NOTE | 2018-07-04 14:48 | General Progress Note ---
Assessment/Plan Status: stable Assessment/Plan: #Acute metabolic encephalopathy #Septic shock suspected to be due to infected pressure ulcers #Gram negative bacteremia #Acute metabolic encephalopathy #Functional quadriplegia #Sacral pressure ulcers,present on admission -continue ICU level of care while on Levophed -Antibiotics broadened as per ID recs - added amikacin, monitor drug levels and renal function -f/u CT A/P, still too unstable to go to scanner -f/u stool C. diff -continue IV fluids -monitor daily labs -Supportive care -Fall precautions -Aspiration precautions -Surgical consult for pressure ulcers #DARRIAN secondary to ATN #Hyponatremia #Hypomagnesemia -improved renal function today -continue IV hydration and treatment of sepsis -replace electrolytes prn -Nephrology following #Hypotension #Type 2 NSTEMI from demand ischemia from septic shock -continue supportive care -cardiology consult -cardiac monitoring -serial troponin #Type 2 DM, uncontrolled -start ISS -OK to restart tube feeds, d/w Surgery as well. VTE PPx Full Code I spent a total of 35 mins of critical care time, reviewing telemetry data, pressor requirement and vent settings in a critically ill patient requiring ventilator support Subjective Date patient seen: July 04, 2018 Time patient seen: 14:48 ROS Limited/Unobtainable: Yes Allergies: Coded Allergies: No Known Allergies (Unverified , 09/29/17) Subjective Pt trached and remains on vent. Opens eyes to verbal stim. Off vasopressors and was tolerating well, but just now BP dropped, and most likely to be placed back on vasopressors. Objective Last 24 Hour Vital Signs Date Time Temp Pulse Resp B/P (MAP) Pulse Ox O2 Delivery O2 Flow Rate FiO2 07/04/18 14:00 92 26 100/50 (67) 100 07/04/18 13:00 95 21 97/59 (72) 100 07/04/18 12:00 98.6 91 26 104/74 (84) 100 07/04/18 12:00 91 07/04/18 12:00 Nasal Cannula 3.0 07/04/18 11:00 83 21 98/58 (71) 100 07/04/18 10:00 85 26 102/61 (75) 100 07/04/18 09:00 85 25 102/51 (68) 100 07/04/18 08:00 96 07/04/18 08:00 97.6 85 26 104/62 (76) 100 07/04/18 08:00 Nasal Cannula 3.0 07/04/18 07:04 83 26 94/50 (65) 100 07/04/18 06:40 98 Nasal Cannula 3.0 32 07/04/18 06:40 Nasal Cannula 3.0 32 07/04/18 06:40 95 20 Nasal Cannula 3.0 32 07/04/18 06:00 90 27 91/66 (74) 100 07/04/18 05:00 89 27 95/53 (67) 100 07/04/18 04:00 Nasal Cannula 3.0 07/04/18 04:00 90 07/04/18 04:00 98.0 90 26 94/56 (69) 100 07/04/18 03:00 86 28 96/56 (69) 99 07/04/18 02:00 87 29 96/60 (72) 100 07/04/18 01:00 86 32 95/55 (68) 100 07/04/18 00:00 97.9 90 29 90/46 (61) 100 07/04/18 00:00 90 07/04/18 00:00 Nasal Cannula 3.0 07/03/18 23:00 95 28 97/60 (72) 100 07/03/18 22:00 93 31 97/52 (67) 100 07/03/18 21:00 94 23 100/58 (72) 100 07/03/18 20:00 92 07/03/18 20:00 98 Nasal Cannula 3.0 32 07/03/18 20:00 98.7 92 26 97/67 (77) 100 07/03/18 20:00 92 20 Nasal Cannula 3.0 32 07/03/18 20:00 Nasal Cannula 3.0 32 07/03/18 20:00 Nasal Cannula 3.0 07/03/18 19:00 93 26 94/57 (69) 100 07/03/18 18:30 91 26 99/57 (71) 100 07/03/18 18:00 90 26 105/63 (77) 100 07/03/18 18:00 136/99 07/03/18 17:30 93 29 109/61 (77) 100 07/03/18 17:00 84 26 109/64 (79) 100 07/03/18 17:00 122/67 07/03/18 16:30 97.6 83 28 114/68 (83) 100 07/03/18 16:00 84 28 108/58 (75) 100 07/03/18 16:00 84 07/03/18 16:00 Nasal Cannula 3.0 07/03/18 16:00 108/58 07/03/18 16:00 3.0 07/03/18 15:30 85 28 102/63 (76) 100 07/03/18 15:00 84 26 103/55 (71) 100 07/03/18 15:00 106/59 Intake and Output 07/03/18 07/04/18 19:00 07:00 Intake Total 1622.5 ml 1310.0 ml Output Total 1000 ml 525 ml Balance 622.5 ml 785.0 ml Intake Oral 0 ml Free Water 60 ml IV Total 1462.5 ml 1310.0 ml Other 100 ml Output Urine Total 1000 ml 525 ml Laboratory Tests 07/04/18 03:50: White Blood Count 13.4H, Red Blood Count 3.59L, Hemoglobin 8.5L, Hematocrit 27.4L, Mean Corpuscular Volume 76L, Mean Corpuscular Hemoglobin 23.6L, Mean Corpuscular Hemoglobin Concent 31.0L, Red Cell Distribution Width 18.1H, Platelet Count 259, Mean Platelet Volume 7.4, Neutrophils (%) (Auto) 84.9H, Lymphocytes (%) (Auto) 10.0L, Monocytes (%) (Auto) 1.3, Eosinophils (%) (Auto) 3.1H, Basophils (%) (Auto) 0.7, Sodium Level 139, Potassium Level 3.6, Chloride Level 106, Carbon Dioxide Level 28, Anion Gap 5, Blood Urea Nitrogen 14, Creatinine 0.6, Estimat Glomerular Filtration Rate > 60, Glucose Level 98, Calcium Level 7.8L Height (Feet): 5 Height (Inches): 8.00 Weight (Pounds): 175 Objective General: +trached/vented Head: normocephalic, without obvious abnormality, atraumatic Eyes: conjunctivae/corneas clear. PERRL, EOM's intact Throat: +trached/vented Neck: supple, symmetrical, trachea midline, and no JVD Lungs: clear to auscultation bilaterally Heart: regular rate and rhythm, S1, S2 normal, no murmur, click, rub or gallop Abdomen: soft, non-tender, non-distended, bowel sounds normal; no masses or organomegaly Extremities: extremities normal, atraumatic, no cyanosis or edema Pulses: 2+ and symmetric Skin: skin color, texture, turgor normal; no rashes or lesions David Lindsey MD July 04, 2018 14:48
--- NOTE | 2018-07-04 16:27 | General Progress Note ---
Assessment/Plan Status: stable Assessment/Plan: Assessment and Recs: # Leukocytosis/Elevated white blood cell count, unspecified likely related to underlying stress reaction, versus in this case septic shock REQUIRING pressors , elevated lactate likely uti v in addition sacral ulceration infection --> have reviewed peripheral smear and bandemia/neutrophilia noted, also metamyelocytes and meylocytes noted initially --> continue antibiotics if they have been started by ID team --> monitor for resolution ==> trend 29k-->43k-->13k # Anemia of chronic disease (or of iron deficiency) due to underlying chronic medical issues, multifactorial --> Anemia workup has been ordered, rule out gi bleed --> No evidence of hemolysis is noted, peripheral smear has been reviewed. --> Hgb goal >7. Transfuse prn. --> Epogen or iron at this time is not particularly indicated --> Medications have been reviewed --> evaluate with Gi team prn --> transfuse if hgb is < 7 (will trend CBC daily) --> low threshold for gi evaluation in case has occult + ==> hgb 9.8-->8.5 # Coagulation defect, multifactorial usually related to poor PO intake versus medications, vesus in this case septic shock, inr is 1.3 --> administer Vitamin K if patient is bleeding or FFP if the INR is >10 --> hold off on ffp unless active procedure/bleeding, first begin with vit K 10 --> mixing study as needed # DARRIAN secondary to ATN --> per renal # Septic shock suspected to be due to infected pressure ulcers --> on abx as per id # Gram negative bacteremia # Acute metabolic encephalopathy # Functional quadriplegia # Sacral pressure ulcers,present on admission --> per surg # Type 2 NSTEMI from demand ischemia from septic shock --> per cards The timing of this note does not necessarily reflect the time of the patient was seen. Greatly appreciate consultation! Subjective Constitutional: Denies: no symptoms, chills, diaphoresis, fever, malaise, weakness, other HEENT: Denies: no symptoms, eye pain, blurred vision, tearing, double vision, ear pain, ear discharge, nose pain, nose congestion, throat pain, throat swelling, mouth pain, mouth swelling, other Respiratory: Denies: no symptoms, cough, orthopnea, shortness of breath, SOB with excertion, SOB at rest, sputum, stridor, wheezing, other Gastrointestinal/Abdominal: Denies: no symptoms, abdomen distended, abdominal pain, black stools, tarry stools, blood in stool, constipated, diarrhea, difficulty swallowing, nausea, poor appetite, poor fluid intake, rectal bleeding , vomiting, other Genitourinary: Denies: no symptoms, burning, discharge, frequency, flank pain, hematuria, incontinence, pain, urgency, other Neurologic/Psychiatric: Denies: no symptoms, anxiety, depressed, emotional problems, headache, numbness, paresthesia, pre-existing deficit, seizure, tingling, tremors, weakness, other Endocrine: Denies: no symptoms, excessive sweating, flushing, intolerance to cold, intolerance to heat, increased hunger, increased thirst, increased urine, unexplained weight gain, unexplained weight loss, other Allergies: Coded Allergies: No Known Allergies (Unverified , 09/29/17) Subjective 07/04: remains in the icu, labs have been reviewed, wbc has improved, on abx Objective Last 24 Hour Vital Signs Date Time Temp Pulse Resp B/P (MAP) Pulse Ox O2 Delivery O2 Flow Rate FiO2 07/04/18 15:00 84 25 101/61 (74) 100 07/04/18 14:00 92 26 100/50 (67) 100 07/04/18 13:00 95 21 97/59 (72) 100 07/04/18 12:00 98.6 91 26 104/74 (84) 100 07/04/18 12:00 91 07/04/18 12:00 Nasal Cannula 3.0 07/04/18 11:00 83 21 98/58 (71) 100 07/04/18 10:00 85 26 102/61 (75) 100 07/04/18 09:00 85 25 102/51 (68) 100 07/04/18 08:00 96 07/04/18 08:00 97.6 85 26 104/62 (76) 100 07/04/18 08:00 Nasal Cannula 3.0 07/04/18 07:04 83 26 94/50 (65) 100 07/04/18 06:40 98 Nasal Cannula 3.0 32 07/04/18 06:40 Nasal Cannula 3.0 32 07/04/18 06:40 95 20 Nasal Cannula 3.0 32 07/04/18 06:00 90 27 91/66 (74) 100 07/04/18 05:00 89 27 95/53 (67) 100 07/04/18 04:00 Nasal Cannula 3.0 07/04/18 04:00 90 07/04/18 04:00 98.0 90 26 94/56 (69) 100 07/04/18 03:00 86 28 96/56 (69) 99 07/04/18 02:00 87 29 96/60 (72) 100 07/04/18 01:00 86 32 95/55 (68) 100 07/04/18 00:00 97.9 90 29 90/46 (61) 100 07/04/18 00:00 90 07/04/18 00:00 Nasal Cannula 3.0 07/03/18 23:00 95 28 97/60 (72) 100 07/03/18 22:00 93 31 97/52 (67) 100 07/03/18 21:00 94 23 100/58 (72) 100 07/03/18 20:00 92 07/03/18 20:00 98 Nasal Cannula 3.0 32 07/03/18 20:00 98.7 92 26 97/67 (77) 100 07/03/18 20:00 92 20 Nasal Cannula 3.0 32 07/03/18 20:00 Nasal Cannula 3.0 32 07/03/18 20:00 Nasal Cannula 3.0 07/03/18 19:00 93 26 94/57 (69) 100 07/03/18 18:30 91 26 99/57 (71) 100 07/03/18 18:00 90 26 105/63 (77) 100 07/03/18 18:00 136/99 07/03/18 17:30 93 29 109/61 (77) 100 07/03/18 17:00 84 26 109/64 (79) 100 07/03/18 17:00 122/67 07/03/18 16:30 97.6 83 28 114/68 (83) 100 Intake and Output 07/03/18 07/04/18 19:00 07:00 Intake Total 1622.5 ml 1310.0 ml Output Total 1000 ml 525 ml Balance 622.5 ml 785.0 ml Intake Oral 0 ml Free Water 60 ml IV Total 1462.5 ml 1310.0 ml Other 100 ml Output Urine Total 1000 ml 525 ml Laboratory Tests 07/04/18 03:50: White Blood Count 13.4H, Red Blood Count 3.59L, Hemoglobin 8.5L, Hematocrit 27.4L, Mean Corpuscular Volume 76L, Mean Corpuscular Hemoglobin 23.6L, Mean Corpuscular Hemoglobin Concent 31.0L, Red Cell Distribution Width 18.1H, Platelet Count 259, Mean Platelet Volume 7.4, Neutrophils (%) (Auto) 84.9H, Lymphocytes (%) (Auto) 10.0L, Monocytes (%) (Auto) 1.3, Eosinophils (%) (Auto) 3.1H, Basophils (%) (Auto) 0.7, Sodium Level 139, Potassium Level 3.6, Chloride Level 106, Carbon Dioxide Level 28, Anion Gap 5, Blood Urea Nitrogen 14, Creatinine 0.6, Estimat Glomerular Filtration Rate > 60, Glucose Level 98, Calcium Level 7.8L Height (Feet): 5 Height (Inches): 8.00 Weight (Pounds): 175 Objective PE General Appearance: lethargic, Chronically Ill Neck: limited range of motion, other - old tracheostomy Respiratory: no respiratory distress, rhonchi Cardiovascular: normal peripheral pulses Gastrointestinal: soft Musculoskeletal: decreased range of motion Neurologic: motor weakness, other - somnolent Skin: other - large sacral decubitus ulcer Huey Garcia MD July 04, 2018 16:27
--- NOTE | 2018-07-04 16:38 | NUR ---
NURSE NOTES: Turned and repositioned. Kept dry and clean. Sxn provided.
--- NOTE | 2018-07-04 18:20 | NUR ---
NURSE NOTES: Turned and repositioned. Kept dry and clean. BP stable.
--- NOTE | 2018-07-04 18:32 | Pulmonolgy Critical Care Note ---
Critical Care - Asmt/Plan Assessment/Plan: 1. Shock/sepsis. 2. Scattered bilateral interstitial opacities, possible multilobar pneumonia. 3. Urinary tract infection. 4. History of MRSA pneumonia in the past. 5. Acute kidney injury. 6. Lactic acidosis. 7. Non ST-elevation myocardial infarction/troponinemia, likely demand ischemia. 8. Protein-calorie malnutrition. 9. Bacteremia 10. [facility] resident. 11. 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 12. History of tracheostomy in the past. 13. Dysphagia, status post G-tube treatment. Plan: -prn bipap nebs and suction -wound carer -Abx per ID wean pressors -f/u cultures and sensitivities Respiratory: CXR Cardiac: continue pressors Gastrointestinal: continue feedings/current rate Neurologic: PRN Ativan Prophylaxis: Protonix Disposition: keep in ICU Time Spent (Minutes): 40 Notes Reviewed: english faculty member, cardio Discussed with: nurses Critical Care - Objective Last 24 Hour Vital Signs Date Time Temp Pulse Resp B/P (MAP) Pulse Ox O2 Delivery O2 Flow Rate FiO2 07/04/18 18:00 93 25 94/56 (69) 100 07/04/18 17:00 93 25 106/63 (77) 100 07/04/18 16:00 98.4 99 29 112/62 (79) 100 07/04/18 16:00 97 07/04/18 16:00 Nasal Cannula 3.0 07/04/18 15:00 84 25 101/61 (74) 100 07/04/18 14:00 92 26 100/50 (67) 100 07/04/18 13:00 95 21 97/59 (72) 100 07/04/18 12:00 98.6 91 26 104/74 (84) 100 07/04/18 12:00 91 07/04/18 12:00 Nasal Cannula 3.0 07/04/18 11:00 83 21 98/58 (71) 100 07/04/18 10:00 85 26 102/61 (75) 100 07/04/18 09:00 85 25 102/51 (68) 100 07/04/18 08:00 96 07/04/18 08:00 97.6 85 26 104/62 (76) 100 07/04/18 08:00 Nasal Cannula 3.0 07/04/18 07:04 83 26 94/50 (65) 100 07/04/18 06:40 98 Nasal Cannula 3.0 32 07/04/18 06:40 Nasal Cannula 3.0 32 07/04/18 06:40 95 20 Nasal Cannula 3.0 32 07/04/18 06:00 90 27 91/66 (74) 100 07/04/18 05:00 89 27 95/53 (67) 100 07/04/18 04:00 Nasal Cannula 3.0 07/04/18 04:00 90 07/04/18 04:00 98.0 90 26 94/56 (69) 100 07/04/18 03:00 86 28 96/56 (69) 99 07/04/18 02:00 87 29 96/60 (72) 100 07/04/18 01:00 86 32 95/55 (68) 100 07/04/18 00:00 97.9 90 29 90/46 (61) 100 07/04/18 00:00 90 07/04/18 00:00 Nasal Cannula 3.0 07/03/18 23:00 95 28 97/60 (72) 100 07/03/18 22:00 93 31 97/52 (67) 100 07/03/18 21:00 94 23 100/58 (72) 100 07/03/18 20:00 92 07/03/18 20:00 98 Nasal Cannula 3.0 32 07/03/18 20:00 98.7 92 26 97/67 (77) 100 07/03/18 20:00 92 20 Nasal Cannula 3.0 32 07/03/18 20:00 Nasal Cannula 3.0 32 07/03/18 20:00 Nasal Cannula 3.0 07/03/18 19:00 93 26 94/57 (69) 100 Status: awake Condition: improving Lungs: rhonchi Heart: HR/BP stable Abdomen: soft, non-tender Extremities: edema Micro: Microbiology Date/Time Source Procedure Growth Status 07/01/18 20:00 Nasal Nares MRSA Culture - Final Staphylococcus Aureus - Mrsa Complete 07/01/18 20:00 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 Complete Accucheck: 116 Critical Care - Subjective ROS Limited/Unobtainable: Yes Condition: improving FI02: 32 Vent Support Mode: BiLevel Sputum Amount: Moderate Tube Feeding Amount: 25 I&O: Intake and Output 07/03/18 07/04/18 19:00 07:00 Intake Total 1622.5 ml 1310.0 ml Output Total 1000 ml 525 ml Balance 622.5 ml 785.0 ml Intake Oral 0 ml Free Water 60 ml IV Total 1462.5 ml 1310.0 ml Other 100 ml Output Urine Total 1000 ml 525 ml Subjective: confused awake ostomy dressed off bipap at thsi tiem time no reports of cp nv or bleeding on IVf no fever no events over night still on pressors Labs: Laboratory Tests Test 07/04/18 03:50 White Blood Count 13.4 K/UL (4.8-10.8) H Red Blood Count 3.59 M/UL (4.70-6.10) L Hemoglobin 8.5 G/DL (14.2-18.0) L Hematocrit 27.4 % (42.0-52.0) L Mean Corpuscular Volume 76 FL (80-99) L Mean Corpuscular Hemoglobin 23.6 PG (27.0-31.0) L Mean Corpuscular Hemoglobin Concent 31.0 G/DL (32.0-36.0) L Red Cell Distribution Width 18.1 % (11.6-14.8) H Platelet Count 259 K/UL (150-450) Mean Platelet Volume 7.4 FL (6.5-10.1) Neutrophils (%) (Auto) 84.9 % (45.0-75.0) H Lymphocytes (%) (Auto) 10.0 % (20.0-45.0) L Monocytes (%) (Auto) 1.3 % (1.0-10.0) Eosinophils (%) (Auto) 3.1 % (0.0-3.0) H Basophils (%) (Auto) 0.7 % (0.0-2.0) Sodium Level 139 MMOL/L (136-145) Potassium Level 3.6 MMOL/L (3.5-5.1) Chloride Level 106 MMOL/L (98-107) Carbon Dioxide Level 28 MMOL/L (21-32) Anion Gap 5 mmol/L (5-15) Blood Urea Nitrogen 14 mg/dL (7-18) Creatinine 0.6 MG/DL (0.55-1.30) Estimat Glomerular Filtration Rate > 60 mL/min (>60) Glucose Level 98 MG/DL (74-106) Calcium Level 7.8 MG/DL (8.5-10.1) L Current Medications Medications (Trade) Dose Ordered Sig/Patience Route PRN Reason Start Time Stop Time Status Last Admin Dose Admin Acetaminophen (Tylenol) 650 mg Q4H PRN RECTAL FEVER 07/01/18 14:45 07/31/18 14:44 Albuterol/ Ipratropium (Albuterol/ Ipratropium) 3 ml Q4H PRN HHN Shortness of Breath 07/01/18 14:45 07/06/18 14:44 Amikacin Protocol (Amikacin pharmacy to dose) 1 ea DAILY PRN MISC Per rx protocol 07/02/18 08:15 08/01/18 08:14 Amikacin Sulfate 1000 mg/Sodium Chloride 114 ml @ 228 mls/hr Q24H IV 07/03/18 11:00 07/10/18 10:59 07/04/18 11:32 Chlorhexidine Gluconate (Cristine-Hex 2%) 1 applic DAILY@2000 TOPIC 07/01/18 20:00 07/31/18 19:59 07/03/18 20:58 Dextrose (Dextrose 50%) 25 ml Q30M PRN IV Hypoglycemia 07/02/18 10:45 08/01/18 10:44 Dextrose (Dextrose 50%) 50 ml Q30M PRN IV Hypoglycemia 07/02/18 10:45 08/01/18 10:44 Heparin Sodium (Porcine) (Heparin 5000 units/ml) 5,000 units EVERY 12 HOURS SUBQ 07/01/18 21:00 07/31/18 20:59 07/04/18 09:37 Insulin Aspart (NovoLOG) Q6HR SUBQ 07/03/18 13:00 08/02/18 12:59 07/04/18 17:06 Norepinephrine Bitartrate 4 mg/ Dextrose 250 ml @ 0 mls/hr Q24H IV 07/01/18 22:00 07/31/18 21:59 07/03/18 12:11 Ondansetron HCl (Zofran) 4 mg Q6H PRN IVP Nausea & Vomiting 07/01/18 14:45 07/31/18 14:44 07/01/18 18:23 Piperacillin Sod/ Tazobactam Sod 3.375 gm/Sodium Chloride 110 ml @ 27.5 mls/hr EVERY 8 HOURS IVPB 07/01/18 22:00 07/06/18 21:59 07/04/18 14:10 Sodium Chloride 1,000 ml @ 100 mls/hr Q10H IVLG 07/01/18 14:46 07/31/18 14:45 07/04/18 12:48 Camryn Hui DO July 04, 2018 18:32
--- NOTE | 2018-07-04 19:12 | NUR ---
HAND-OFF: Report given to MARI AELENA Carlton using SBAR.
--- NOTE | 2018-07-04 19:30 | NUR ---
NURSE NOTES: Received pt in no acute distress. Awake, alert, opens eyes spontaneously but non verbal. No evidence of pain or discomfort; no respiratory difficulty. Saturating 100% on 3l/ via NC. HOB elevated. Moves BUE purposefully but weak. NSR, afebrile, BP stable. Right upper arm PICC intact with IVF of NS infusing at 100ml/h. GT patent. GTF with Glucerna 1.5 running at 25ml./h with 0 residuals. FC intact, UOp dark lucita, cldy, 40-55ml/h. Wound dressings dry and intact. Will continue to monitor. Fall precautions in place. Isolation precautions observed.
[2018-07-04] MEDS: Dyna-Hex 2% Top Sol 2oz TOPIC SCH (21:04)
--- NOTE | 2018-07-04 21:30 | NUR ---
NURSE NOTES: Remains awake with HOB elevated. Tolerating tube feeding. Coughing productively but unable to expectorate. RT suctioned via NT and obtained thick, yellow sputum
[2018-07-05] VITALS (16 sets, daily range): BP systolic 94–155; BP diastolic 39–72
--- NOTE | 2018-07-05 | NUR ---
NURSE NOTES: Sleeping, HOB elevated. VSS. No distress
--- NOTE | 2018-07-05 02:00 | NUR ---
NURSE NOTES: Calm, passive, asleep, no distress. GTF placed on hold; pt for CT abdomen today. IV NS continues at 100ml/h
--- NOTE | 2018-07-05 04:00 | NUR ---
NURSE NOTES: Complete bed bath done. Wound on sacral area redressed. GT site dressing changed. VSS; GTF remains on hold. Afebrile; NSR; BP stable.
[2018-07-05] MEDS: Piperacillin/Tazobactam 3.375 GM in NS 110 ML IVPB SCH ×3 (05:49→21:32)
[2018-07-05] MEDS: NovoLOG Insulin Flexpen SUBQ SCH ×4 (05:58→17:02)
--- NOTE | 2018-07-05 07:18 | NUR ---
HAND-OFF: Report given to Bubba Pretty RN.
--- NOTE | 2018-07-05 07:30 | NUR ---
NURSE NOTES: Report received from Brandt ARREDONDO. Pt alert and oriented, x 1-2, pt aphasic. Pt connected to extrusion engineer, SR. Pt on 3 L O2, saturating 100%, pt has bipap prn on standby but hasn't used it for 2 days. Rhonchi auscultated bilaterally. Pt with peg tube clamped, pt kept NPO for now for CT abdomen today. Naik noted and intact with clear, yellow urine draining to gravity. ERNESTO PICC noted and intact with maintenance IVF running. Dr Carver here to see pt this morning and said pt is stable for transfer to [facility]. Safety measures in place with bed locked and in lowest position, side rails x3 up and bed alarm on. Will continue to monitor and continue plan of care.
[2018-07-05] MEDS: Heparin 5000 units/ml inj SUBQ SCH (08:25)
[2018-07-05] MEDS ORDERED: Tubing IV Secondary IV ONE ×2 (09:33→09:40)
[2018-07-05] MEDS ORDERED: NS 275ml ONE ×2 (09:35→09:40)
[2018-07-05] MEDS: Amikacin 1,000 MG in NS 110 ML IV SCH (10:23)
--- NOTE | 2018-07-05 10:40 | NUR ---
NURSE NOTES: Pt deep suctioned nasotracheally with thick yellowish sections. VSS. Will continue to monitor.
--- NOTE | 2018-07-05 11:12 | NUR ---
RD ASSESSMENT & RECOMMENDATIONS SEE CARE ACTIVITY FOR COMPLETE ASSESSMENT DAILY ESTIMATED NEEDS: Needs based on Wounds, sepsis METALSMITH TF/ 76kg 25-30 kcals/kg 4536-3812 total kcals 1.5-2.0 g protein/kg 114-152 g total protein 25-30 mL/kg 1610-6194 total fluid mLs NUTRITION DIAGNOSIS: 1) Increased kcal and protein needs r/t wound healing and sepsis as evidenced by pt adm w/ multiple wounds, including stage 4, stage 3, stage 2, DTI's, unstageable wounds, refer to WC eval, pt septic w/ critically elev wbc (43.3*-> 13.4), elev LA and RR. 2) Swallowing difficulty r/t dysphagia and h/o CVA as evidenced by pt is PEG dep. CURRENT TF: HELD for CT abdomen ENTERAL NUTRITION RECOMMENDATIONS: Glucerna 1.5 @55ml/hr x24 hrs + Prosource 1pkt daily to provide 1320ml, 1980 kcal, 109g +11g prot, 1002ml free H2O - As medically appropriate , start Glucerna 1.5 @ 25ml/hr, advance as tolerated 10ml/hr q 4-6 hrs to goal - Add Prosource 1pkt QD to meet protein needs - Flush per MD. HOB over 30 degrees WITHOUT HEMODYNAMIC STABILITY, rec trophic feeding of Glucerna 1.5 @ 15ml/hr x 24 hrs ----- ADDITIONAL RECOMMENDATIONS: 1) Wound care: add Vit C 500mg QD, Rafael 1pkt BID, ZnSO4 220mg [id number] -> TF @ goal will provide 100% RDI 2) Per SNF, pt's HT=5'10", [id number] (obtained 06/12/18) 3) Re-calibrated bedscale wt, weekly wt monitoring 4) Monitor HD stability- now off Levo 5) Monitor lytes, updated as able
--- NOTE | 2018-07-05 12:00 | NUR ---
NURSE NOTES: Turned and repositioned pt. VSS. Will continue to monitor.
--- NOTE | 2018-07-05 12:26 | NUR ---
OIL HEATERMANAERODYNAMICS ENGINEER SI:NSTEMI . SEPSIS VS: BP 155/51, P 93, T 98.0, RR 27, SpO2 100 WBC 13.4, RBC 3.59, H&H 8.5/27.4 IS:AMIKACIN SULFATE 114ml IV NS x1L IVLG HEPARIN SUBQ ZOSYN 110ml IVPB ICU STATUS
--- NOTE | 2018-07-05 13:19 | Surgery Progress Note ---
Surgery Progress Note Subjective Additional Comments slowly improving CT A and Head pending doing well with deep suctioning labs pending exam stable. plan to downgrade from ICU Objective Last 24 Hour Vital Signs Date Time Temp Pulse Resp B/P (MAP) Pulse Ox O2 Delivery O2 Flow Rate FiO2 07/05/18 12:00 Nasal Cannula 3.0 07/05/18 11:00 89 27 155/51 (85) 100 07/05/18 10:00 93 27 146/39 (74) 99 07/05/18 09:00 86 16 150/39 (76) 99 07/05/18 08:00 98.0 85 26 139/48 (78) 100 07/05/18 08:00 90 07/05/18 08:00 Nasal Cannula 3.0 07/05/18 07:00 88 27 147/68 (94) 100 07/05/18 06:52 96 20 Nasal Cannula 2.0 28 07/05/18 06:52 Nasal Cannula 2.0 28 07/05/18 06:52 96 Nasal Cannula 2.0 28 07/05/18 06:00 84 26 138/59 (85) 100 07/05/18 05:00 86 27 94/53 (67) 100 07/05/18 04:00 91 07/05/18 04:00 98.8 91 32 101/50 (67) 99 07/05/18 04:00 Nasal Cannula 3.0 07/05/18 03:00 86 26 100/53 (69) 100 07/05/18 02:00 87 25 97/54 (68) 100 07/05/18 01:00 90 28 104/65 (78) 100 07/05/18 00:00 Nasal Cannula 3.0 07/05/18 00:00 98.5 83 26 98/65 (76) 100 07/04/18 23:00 85 24 93/60 (71) 100 07/04/18 22:04 98 16 94/58 (70) 100 07/04/18 21:31 94/55 07/04/18 21:00 88 23 94/55 (68) 100 07/04/18 20:17 Nasal Cannula 3.0 32 07/04/18 20:16 95 Nasal Cannula 3.0 32 07/04/18 20:15 97 25 Nasal Cannula 3.0 32 07/04/18 20:00 98.7 88 24 111/60 (77) 100 07/04/18 20:00 88 07/04/18 20:00 Nasal Cannula 3.0 07/04/18 19:00 91 25 94/56 (69) 100 07/04/18 18:00 93 25 94/56 (69) 100 07/04/18 17:00 93 25 106/63 (77) 100 07/04/18 16:00 98.4 99 29 112/62 (79) 100 07/04/18 16:00 97 07/04/18 16:00 Nasal Cannula 3.0 07/04/18 15:00 84 25 101/61 (74) 100 07/04/18 14:00 92 26 100/50 (67) 100 I&O Intake and Output 07/04/18 07/05/18 19:00 07:00 Intake Total 1450 ml 1417.5 ml Output Total 640 ml 620 ml Balance 810 ml 797.5 ml Intake Oral 0 ml Free Water 100 ml IV Total 1200 ml 1237.5 ml Tube Feeding 150 ml 180 ml Output Urine Total 640 ml 620 ml Dressing: saturated Wound: clean Drains: other Cardiovascular: RSR Respiratory: decreased breath sounds Abdomen: soft, present bowel sounds, non-distended Extremities: no cyanosis Plan Problems: (1) Non-STEMI (non-ST elevated myocardial infarction) (2) Fever (3) Sacral decubitus ulcer Assessment & Plan: Pt presented on admission with multiple pressure injuries.Full thickness sacral pressure injury with undermining. Base of wound is beefy red. Bone is palpable.Borders red and flat. Darker skin tone periwound without erythema or induration. (L)8cm x (W)7.5cm x(D)3cm ,Undermining 7-5 by 5.5cm@ 8 o'clock. No odor noted .Small amt serous exudate noted. Partially opened DTPI L ischium.Base of wound dark brown. Areas that are fluctuant, with scattered openings that are viable within base of wound.Periwound without erythema or induration. (L)7.5cm x (W)4.2cmPartial thickness pressure injury noted to posterior Upper L thigh (L)0.6cm x (W) 0.5cm.Base of wound is moist -viable.No odor or exudate noted. Dry peeling skin without erythema periwound. Partially opened DTPI lateral L Tibia. Base of wound with 40% pink granulation otherwise with 60% soft urbina slough. Small amt non-odorous exudate noted. (L) 4.3cm x (W)4.2cm. L heel pressure injury with 80% mixed dry eschar and slough,20% pink granulation. No odor or exudate noted.Periwound is fluctuant but blanchable. Dark skin tone without induration or fluctuance noted to R ischium. Scattered partial thickness openings within affected area of discoloration.Full thickness pressure injury Lateral R malleolus. Base of wound erythematous with trace amt Biofilm.Small amt non-odorous serous exudate noted.Erythema noted along borders and periwound.No odor noted.(L)1cm x (W)1.2cm. Blood filled blister noted to lateral R heel. Base of wound is purple and fluctuant. Non-blanchable erythema with fluctuance noted periwound. (L)(L)2cm x (W)2.5cm. Tx.Plan: Cleanse sacral wound with Saline. Loosely pack with Hydrogel impregnated kerlix.Apply Triad paste periwound. Cover with Optifoam drsg. Change Daily and PRN. Cleanse L Ischium with Saline. Apply Triad Paste. Cover with Optifoam drsg. Change every 3 days and prn. Cleanse lateral tibia with Saline. Apply Therahoney. Cavilon Skin Barrier Periwound. Cover with Optifoam drsg. Change every 3 days and prn. Cleanse L heel with Saline. Apply Therahoney. Apply Cavilon Skin Barrier periwound. Cover with Optifoam drsg. Change every 3 days and prn. Apply Triad Paste to R ischium . Cover with Optifoam drsg. Change every 3 days and prn. Cleanse R lateral Malleolus with Saline. Apply Therahoney. Apply Cavilon Periwound. Cover with Optifoam drsg Change every 3 days and prn. Apply Cavilon Skin Barrier to R heel . Cover with Optifoam drsg. Change every 7 days and prn. APM/SELENA Mattress overlay. Reposition at least every 2hours or as tolerated. (4) Sepsis Assessment & Plan: Cont with IV Abx CXR noted AM labs ordered labs noted exam thus far stable wounds being cared for overall prognosis guarded DAILY ESTIMATED NEEDS: Needs based on Wounds, sepsis [employer] BLASTING TF/ 76kg 25-30 kcals/kg 6989-4824 total kcals 1.5-2.0 g protein/kg 114-152 g total protein 25-30 mL/kg 3188-6483 total fluid mLs NUTRITION DIAGNOSIS: 1) Increased kcal and protein needs r/t wound healing and sepsis as evidenced by pt adm w/ multiple wounds, including stage 4, stage 3, stage 2, DTI's, unstageable wounds, refer to WC eval, pt septic w/ critically elev wbc (43.3*), elev LA and RR. 2) Swallowing difficulty r/t dysphagia and h/o CVA as evidenced by pt is PEG dep. CURRENT TF:NPO ENTERAL NUTRITION RECOMMENDATIONS: Glucerna 1.5 @55ml/hr x24 hrs + Prosource 1pkt daily to provide 1320ml, 1980 kcal, 109g +11g prot, 1002ml free H2O - With HEMODYNAMIC STABILTY and as medically appropriate , start glucerna 1.5 @ 25ml/hr, advance as tolerated 10ml/hr q 4-6 hrs to goal - Add Prosource 1pkt QD to meet protein needs - Flush per MD. HOB over 30 degrees WITHOUT HEMODYNAMIC STABILITY, rec trophic feeding of Glucerna 1.5 @ 15ml/hr x 24 hrs ADDITIONAL RECOMMENDATIONS: 1) Wound care: add Vit C 500mg QD, Rafael 1pkt BID : TF @ goal will provide 100% RDI 2) Per SNF, pt's HT=5'10", [id number] (obtained 06/12/18) 3) Re-calibrated bedscale wt, weekly wt monitoring 4) Monitor HD stability 5) Monitor lytes, replete as needed (low mag) (5) Acute encephalopathy (6) Septic shock (7) Leukocytosis (8) Acute kidney injury Tonio Raza July 05, 2018 13:19
--- NOTE | 2018-07-05 13:34 | General Progress Note ---
Assessment/Plan Status: stable, progressing Assessment/Plan: #Acute metabolic encephalopathy #Septic shock suspected to be due to infected pressure ulcers #Polymicrobial bacteremia and UTI #Acute metabolic encephalopathy #Functional quadriplegia #Sacral pressure ulcers,present on admission -Continue Zosyn and amikacin per ID -continue IV fluids -monitor daily labs -Supportive care -Fall precautions -Aspiration precautions -Surgical consult for pressure ulcers #DARRIAN secondary to ATN, resolved #Hyponatremia #Hypomagnesemia -continue supportive care -replace electrolytes prn -Nephrology following #Hypotension #Type 2 NSTEMI from demand ischemia from septic shock -continue supportive care -cardiology consult -cardiac monitoring -serial troponin #Type 2 DM, uncontrolled -start ISS VTE PPx Full Code Subjective Date patient seen: July 05, 2018 Time patient seen: 08:00 ROS Limited/Unobtainable: Yes Allergies: Coded Allergies: No Known Allergies (Unverified , 09/29/17) Subjective Medicine followup for septic shock, gram negative bacteremia, UTI, acute metabolic encephalopathy, DARRIAN due to ATN> Mentation and leukocytosis improved. Objective Last 24 Hour Vital Signs Date Time Temp Pulse Resp B/P (MAP) Pulse Ox O2 Delivery O2 Flow Rate FiO2 07/05/18 13:00 87 28 147/50 (82) 100 07/05/18 12:00 Nasal Cannula 3.0 07/05/18 12:00 98.0 85 27 138/52 (80) 100 07/05/18 12:00 91 07/05/18 11:00 89 27 155/51 (85) 100 07/05/18 10:00 93 27 146/39 (74) 99 07/05/18 09:00 86 16 150/39 (76) 99 07/05/18 08:00 98.0 85 26 139/48 (78) 100 07/05/18 08:00 90 07/05/18 08:00 Nasal Cannula 3.0 07/05/18 07:00 88 27 147/68 (94) 100 07/05/18 06:52 96 20 Nasal Cannula 2.0 28 07/05/18 06:52 Nasal Cannula 2.0 28 07/05/18 06:52 96 Nasal Cannula 2.0 28 07/05/18 06:00 84 26 138/59 (85) 100 07/05/18 05:00 86 27 94/53 (67) 100 07/05/18 04:00 91 07/05/18 04:00 98.8 91 32 101/50 (67) 99 07/05/18 04:00 Nasal Cannula 3.0 07/05/18 03:00 86 26 100/53 (69) 100 07/05/18 02:00 87 25 97/54 (68) 100 07/05/18 01:00 90 28 104/65 (78) 100 07/05/18 00:00 Nasal Cannula 3.0 07/05/18 00:00 98.5 83 26 98/65 (76) 100 07/04/18 23:00 85 24 93/60 (71) 100 07/04/18 22:04 98 16 94/58 (70) 100 07/04/18 21:31 94/55 07/04/18 21:00 88 23 94/55 (68) 100 07/04/18 20:17 Nasal Cannula 3.0 32 07/04/18 20:16 95 Nasal Cannula 3.0 32 07/04/18 20:15 97 25 Nasal Cannula 3.0 32 07/04/18 20:00 98.7 88 24 111/60 (77) 100 07/04/18 20:00 88 07/04/18 20:00 Nasal Cannula 3.0 07/04/18 19:00 91 25 94/56 (69) 100 07/04/18 18:00 93 25 94/56 (69) 100 07/04/18 17:00 93 25 106/63 (77) 100 07/04/18 16:00 98.4 99 29 112/62 (79) 100 07/04/18 16:00 97 07/04/18 16:00 Nasal Cannula 3.0 07/04/18 15:00 84 25 101/61 (74) 100 07/04/18 14:00 92 26 100/50 (67) 100 Intake and Output 07/04/18 07/05/18 19:00 07:00 Intake Total 1450 ml 1417.5 ml Output Total 640 ml 620 ml Balance 810 ml 797.5 ml Intake Oral 0 ml Free Water 100 ml IV Total 1200 ml 1237.5 ml Tube Feeding 150 ml 180 ml Output Urine Total 640 ml 620 ml Height (Feet): 5 Height (Inches): 8.00 Weight (Pounds): 180 General Appearance: alert Cardiovascular: normal rate Respiratory/Chest: lungs clear, normal breath sounds Abdomen: normal bowel sounds, non tender, soft Reginald Pulido MD July 05, 2018 13:34
[2018-07-05] MEDS ORDERED: Albuterol/Ipratropium 3ml neb HHN PRN ×2 (14:07→17:15)
[2018-07-05] MEDS ORDERED: Acetaminophen 650 MG SUPP RECTAL PRN (14:07)
--- NOTE | 2018-07-05 14:10 | NUR ---
HAND-OFF: Report given to Nick ARREDONDO.
--- NOTE | 2018-07-05 14:15 | NUR ---
NURSE NOTES: Received report from MARIA ELENA Mason. Patient is resting in bed, in stable condition. No s/sx of SOB, breathing is even and unlabored. Observed no presence of pain or discomfort at this time, pt noted to be aphasic. Per, MARIA ELENA Mason, pt HR recorded as low as 44 bpm, pt current HR is is 55. Patient noted with multiple wounds, sacral stage 4 is most noted. Pictures taken upon cowlman and uploaded. Dressings are dry and intact. Bed is in lowest position, brakes engaged. Call light is kept within easy reach. Will continue to monitor patient.
--- NOTE | 2018-07-05 14:47 | NUR ---
*-* INSURANCE *-* CLINICALS AND REVIEWS HAVE BEEN FAXED TO [facility]: RAINER REEVES P [phone] F [phone]
--- NOTE | 2018-07-05 16:14 | Infectious Diseases Prog Note ---
Assessment/Plan Assessment/Plan ASSESSMENT AND PLAN: 1. 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 Acute kidney injury with elevated creatinine. 3. Anemia. 4. Diabetes. 5. Hypertension. 6. Hyperlipidemia. 7. Blood sugar and blood pressure treatment primary for diabetes and hypertension. 8. CVA. 9. TIA. 10. Weakness. 11. Skin care protocol. 12. Gastroesophageal reflux disease. 13. Quadriplegia. 14. Dysphagia. 15. Dyslipidemia. 16. No known allergies. 17. Social history is negative. 18. Family history is noncontributory. 19. MAR was noted. 20. Case was discussed with RN. 21. Past medical history is noted. 22. Continue treatment per primary consultants. Subjective Constitutional: Reports: fatigue; Denies: fever HEENT: Denies: congestion Respiratory: Denies: shortness of breath Cardiovascular: Denies: chest pain Gastrointestinal/Abdominal: Denies: nausea, vomiting, diarrhea Genitourinary: Reports: other - parks Neurologic: Denies: headache Psychiatric: Denies: depression Skin: Denies: rash Hematologic: Denies: bleeding Musculoskeletal: Denies: pain Allergies: Coded Allergies: No Known Allergies (Unverified , 09/29/17) Objective Vital Signs Last 24 Hour Vital Signs Date Time Temp Pulse Resp B/P (MAP) Pulse Ox O2 Delivery O2 Flow Rate FiO2 07/05/18 13:00 87 28 147/50 (82) 100 07/05/18 12:00 Nasal Cannula 3.0 07/05/18 12:00 98.0 85 27 138/52 (80) 100 07/05/18 12:00 91 07/05/18 11:00 89 27 155/51 (85) 100 07/05/18 10:00 93 27 146/39 (74) 99 07/05/18 09:00 86 16 150/39 (76) 99 07/05/18 08:00 98.0 85 26 139/48 (78) 100 07/05/18 08:00 90 07/05/18 08:00 Nasal Cannula 3.0 07/05/18 07:00 88 27 147/68 (94) 100 07/05/18 06:52 96 20 Nasal Cannula 2.0 28 07/05/18 06:52 Nasal Cannula 2.0 28 07/05/18 06:52 96 Nasal Cannula 2.0 28 07/05/18 06:00 84 26 138/59 (85) 100 07/05/18 05:00 86 27 94/53 (67) 100 07/05/18 04:00 91 07/05/18 04:00 98.8 91 32 101/50 (67) 99 07/05/18 04:00 Nasal Cannula 3.0 07/05/18 03:00 86 26 100/53 (69) 100 07/05/18 02:00 87 25 97/54 (68) 100 07/05/18 01:00 90 28 104/65 (78) 100 07/05/18 00:00 Nasal Cannula 3.0 07/05/18 00:00 98.5 83 26 98/65 (76) 100 07/04/18 23:00 85 24 93/60 (71) 100 07/04/18 22:04 98 16 94/58 (70) 100 07/04/18 21:31 94/55 07/04/18 21:00 88 23 94/55 (68) 100 07/04/18 20:17 Nasal Cannula 3.0 32 07/04/18 20:16 95 Nasal Cannula 3.0 32 07/04/18 20:15 97 25 Nasal Cannula 3.0 32 07/04/18 20:00 98.7 88 24 111/60 (77) 100 07/04/18 20:00 88 07/04/18 20:00 Nasal Cannula 3.0 07/04/18 19:00 91 25 94/56 (69) 100 07/04/18 18:00 93 25 94/56 (69) 100 07/04/18 17:00 93 25 106/63 (77) 100 07/04/18 16:00 98.4 99 29 112/62 (79) 100 07/04/18 16:00 97 07/04/18 16:00 Nasal Cannula 3.0 Height (Feet): 5 Height (Inches): 8.00 Weight (Pounds): 180 General Appearance: no acute distress HEENT: normocephalic, atraumatic, anicteric, mucous membranes moist Respiratory/Chest: crackles/rales, rhonchi - bilaterally Cardiovascular: normal rate, regular rhythm, no gallop/murmur, no JVD Abdomen: normal bowel sounds, soft, non tender, no organomegaly, non distended Genitourinary: other - + parks - urine clearer Extremities: no cyanosis Skin: no rash Neurologic/Psychiatric: home demonstration agent II-XII grossly normal, alert, responsive Lymphatic: no neck adenopathy Musculoskeletal: no effusion Objective Chest - 07/02/18 - Procedure: XRAY Chest 1v Indication: Dyspnea Technique: One view of the chest Comparison: 07/01/2018 Findings: There is a band of atelectasis at the left lateral lung base. The lungs and pleural spaces are otherwise clear. The heart size is normal. Impression: Left lateral basilar atelectasis No acute process otherwise Microbiology Date/Time Source Procedure Growth Status 07/03/18 16:00 Blood Blood Culture - Preliminary NO GROWTH AFTER 24 HOURS Resulted 07/03/18 15:45 Blood Blood Culture - Preliminary NO GROWTH AFTER 24 HOURS Resulted 07/04/18 13:00 Sputum Induced Gram Stain - Final Resulted 07/04/18 13:00 Sputum Induced Sputum Culture Pending Resulted Labs Test 07/02/18 17:15 07/02/18 22:10 07/03/18 05:35 07/04/18 03:50 Haptoglobin 271 mg/dL (34-200) Prothrombin Time 13.6 SEC (9.30-11.50) Prothromb Time International Ratio 1.3 (0.9-1.1) Fibrinogen 566 mg/dL (200-400) Iron Level 5 ug/dL (50-175) Total Iron Binding Capacity 132 ug/dL (250-450) Percent Iron Saturation 4 % (15-50) Unsaturated Iron Binding 127 ug/dL (112-346) Ferritin 381 NG/ML (8-388) Lactate Dehydrogenase 166 U/L (81-234) Vitamin B12 Level 1301 PG/ML (193-986) Thyroid Stimulating Hormone (TSH) 3.655 uiU/mL (0.358-3.740) Lactic Acid Level 1.40 mmol/L (0.4-2.0) Troponin I 0.060 ng/mL (0.000-0.056) Random Amikacin Level 8.6 ug/mL White Blood Count 26.1 K/UL (4.8-10.8) 13.4 K/UL (4.8-10.8) Red Blood Count 3.51 M/UL (4.70-6.10) 3.59 M/UL (4.70-6.10) Hemoglobin 8.6 G/DL (14.2-18.0) 8.5 G/DL (14.2-18.0) Hematocrit 26.2 % (42.0-52.0) 27.4 % (42.0-52.0) Mean Corpuscular Volume 75 FL (80-99) 76 FL (80-99) Mean Corpuscular Hemoglobin 24.4 PG (27.0-31.0) 23.6 PG (27.0-31.0) Mean Corpuscular Hemoglobin Concent 32.7 G/DL (32.0-36.0) 31.0 G/DL (32.0-36.0) Red Cell Distribution Width 18.2 % (11.6-14.8) 18.1 % (11.6-14.8) Platelet Count 277 K/UL (150-450) 259 K/UL (150-450) Mean Platelet Volume 7.7 FL (6.5-10.1) 7.4 FL (6.5-10.1) Neutrophils (%) (Auto) % (45.0-75.0) 84.9 % (45.0-75.0) Lymphocytes (%) (Auto) % (20.0-45.0) 10.0 % (20.0-45.0) Monocytes (%) (Auto) % (1.0-10.0) 1.3 % (1.0-10.0) Eosinophils (%) (Auto) % (0.0-3.0) 3.1 % (0.0-3.0) Basophils (%) (Auto) % (0.0-2.0) 0.7 % (0.0-2.0) Differential Total Cells Counted 100 Neutrophils % (Manual) 85 % (45-75) Lymphocytes % (Manual) 4 % (20-45) Monocytes % (Manual) 2 % (1-10) Eosinophils % (Manual) 0 % (0-3) Basophils % (Manual) 0 % (0-2) Band Neutrophils 9 % (0-8) Platelet Estimate Adequate Platelet Morphology Normal Hypochromasia 1+ Anisocytosis 1+ Microcytosis 1+ Sodium Level 139 MMOL/L (136-145) 139 MMOL/L (136-145) Potassium Level 3.3 MMOL/L (3.5-5.1) 3.6 MMOL/L (3.5-5.1) Chloride Level 106 MMOL/L (98-107) 106 MMOL/L (98-107) Carbon Dioxide Level 28 MMOL/L (21-32) 28 MMOL/L (21-32) Anion Gap 5 mmol/L (5-15) 5 mmol/L (5-15) Blood Urea Nitrogen 16 mg/dL (7-18) 14 mg/dL (7-18) Creatinine 0.7 MG/DL (0.55-1.30) 0.6 MG/DL (0.55-1.30) Estimat Glomerular Filtration Rate > 60 mL/min (>60) > 60 mL/min (>60) Glucose Level 191 MG/DL (74-106) 98 MG/DL (74-106) Calcium Level 7.8 MG/DL (8.5-10.1) 7.8 MG/DL (8.5-10.1) Magnesium Level 1.8 MG/DL (1.8-2.4) Random Vancomycin Level 12.3 ug/mL Current Medications Medications (Trade) Dose Ordered Sig/Patience Route PRN Reason Start Time Stop Time Status Last Admin Dose Admin Acetaminophen (Tylenol) 650 mg Q4H PRN RECTAL FEVER 07/05/18 14:07 08/04/18 14:06 Albuterol/ Ipratropium (Albuterol/ Ipratropium) 3 ml Q4H PRN HHN Shortness of Breath 07/05/18 14:07 07/10/18 14:06 Amikacin Protocol (Amikacin pharmacy to dose) 1 ea DAILY PRN MISC Per rx protocol 07/06/18 09:00 08/01/18 08:14 Amikacin Sulfate 1000 mg/Sodium Chloride 114 ml @ 228 mls/hr Q24H IV 07/06/18 11:00 07/10/18 10:59 Chlorhexidine Gluconate (Cristine-Hex 2%) 1 applic DAILY@2000 TOPIC 07/05/18 20:00 07/31/18 19:59 Dextrose (Dextrose 50%) 25 ml Q30M PRN IV Hypoglycemia 07/05/18 14:15 08/01/18 10:44 Dextrose (Dextrose 50%) 50 ml Q30M PRN IV Hypoglycemia 07/05/18 14:15 08/01/18 10:44 Heparin Sodium (Porcine) (Heparin 5000 units/ml) 5,000 units EVERY 12 HOURS SUBQ 07/05/18 21:00 07/31/18 20:59 Insulin Aspart (NovoLOG) Q6HR SUBQ 07/05/18 18:00 08/02/18 12:59 Ondansetron HCl (Zofran) 4 mg Q6H PRN IVP Nausea & Vomiting 07/05/18 14:08 08/04/18 14:07 Piperacillin Sod/ Tazobactam Sod 3.375 gm/Sodium Chloride 110 ml @ 27.5 mls/hr EVERY 8 HOURS IVPB 07/05/18 14:10 07/12/18 14:09 07/05/18 14:21 Sodium Chloride 1,000 ml @ 100 mls/hr Q10H IVLG 07/05/18 14:07 08/04/18 14:06 07/05/18 14:20 Gwendolyn Marquez MD July 05, 2018 16:14
--- NOTE | 2018-07-05 16:39 | Diagnostic Imaging Report ---
Indication: Altered mental status Technique: Contiguous 5 mm thick transaxial imaging of the head obtained in a Siemens Sensation [address] scanner. Soft tissue and bone windows generated. Automatic Exposure Control was utilized. Total Dose length Product (DLP): 1432.[address] Dose Index Volume (CTDIvol): 70.38 mGy Comparison: 04/14/2018 Findings: There is an area of a low attenuation edema within the left parietal lobe. This is cortical-based seen near the vertex and is in the area that measures about 6 x 3 x 4 cm and is consistent with an acute infarct. There is no hemorrhage. There is no mass effect on the lateral ventricle and no midline shift. There is a moderate degree of generalized atrophy of the cerebrum and cerebellum characterized by prominence of the sulci ventricles and basal cisterns. There is a moderate degree of periventricular and deep white matter low-attenuation likely due to chronic small vessel disease. Small air-fluid level noted within the right sphenoid sinus. The mastoids are clear bilaterally. IMPRESSION: Acute left parietal infarct. Critical value communication. Findings were discussed via telephone with Dr. Burton via telephone 4:30 PM 07/05/2018. The CT scanner at [facility] is accredited by the [employer] and the scans are performed using dose optimization techniques as appropriate to a performed exam including Automatic Exposure control.
--- NOTE | 2018-07-05 17:03 | General Progress Note ---
Assessment/Plan Status: stable, progressing Assessment/Plan: Assessment and Recs: # Leukocytosis/Elevated white blood cell count, unspecified likely related to underlying stress reaction, versus in this case septic shock REQUIRING pressors , elevated lactate likely uti v in addition sacral ulceration infection --> have reviewed peripheral smear and bandemia/neutrophilia noted, also metamyelocytes and meylocytes noted initially --> continue antibiotics if they have been started by ID team --> monitor for resolution ==> trend 29k-->43k-->13k # Anemia of chronic disease (or of iron deficiency) due to underlying chronic medical issues, multifactorial --> Anemia workup has been ordered, rule out gi bleed --> No evidence of hemolysis is noted, peripheral smear has been reviewed. --> Hgb goal >7. Transfuse prn. --> Epogen or iron at this time is not particularly indicated --> Medications have been reviewed --> evaluate with Gi team prn --> transfuse if hgb is < 7 (will trend CBC daily) --> low threshold for gi evaluation in case has occult + ==> hgb 9.8-->8.5 # Coagulation defect, multifactorial usually related to poor PO intake versus medications, vesus in this case septic shock, inr is 1.3 --> administer Vitamin K if patient is bleeding or FFP if the INR is >10 --> hold off on ffp unless active procedure/bleeding, first begin with vit K 10 --> mixing study as needed # DARRIAN secondary to ATN --> per renal # Septic shock suspected to be due to infected pressure ulcers --> on abx as per id # Gram negative bacteremia --> on abx # Acute metabolic encephalopathy # Functional quadriplegia # Sacral pressure ulcers,present on admission --> per surg # Type 2 NSTEMI from demand ischemia from septic shock --> per cards # Respiraotry failure on bipap prn The timing of this note does not necessarily reflect the time of the patient was seen. Greatly appreciate consultation! Subjective Constitutional: Denies: no symptoms, chills, diaphoresis, fever, malaise, weakness, other Cardiovascular: Denies: no symptoms, chest pain, edema, irregular heart rate, lightheadedness, palpitations, syncope, other Respiratory: Denies: no symptoms, cough, orthopnea, shortness of breath, SOB with excertion, SOB at rest, sputum, stridor, wheezing, other Gastrointestinal/Abdominal: Denies: no symptoms, abdomen distended, abdominal pain, black stools, tarry stools, blood in stool, constipated, diarrhea, difficulty swallowing, nausea, poor appetite, poor fluid intake, rectal bleeding , vomiting, other Genitourinary: Denies: no symptoms, burning, discharge, frequency, flank pain, hematuria, incontinence, pain, urgency, other Neurologic/Psychiatric: Denies: no symptoms, anxiety, depressed, emotional problems, headache, numbness, paresthesia, pre-existing deficit, seizure, tingling, tremors, weakness, other Endocrine: Denies: no symptoms, excessive sweating, flushing, intolerance to cold, intolerance to heat, increased hunger, increased thirst, increased urine, unexplained weight gain, unexplained weight loss, other Allergies: Coded Allergies: No Known Allergies (Unverified , 09/29/17) Subjective 07/04: remains in the icu, labs have been reviewed, wbc has improved, on abx 07/05: in am transferred to sdu, on bipap prn and peg feeds Objective Last 24 Hour Vital Signs Date Time Temp Pulse Resp B/P (MAP) Pulse Ox O2 Delivery O2 Flow Rate FiO2 07/05/18 13:00 87 28 147/50 (82) 100 07/05/18 12:00 Nasal Cannula 3.0 07/05/18 12:00 98.0 85 27 138/52 (80) 100 07/05/18 12:00 91 07/05/18 11:00 89 27 155/51 (85) 100 07/05/18 10:00 93 27 146/39 (74) 99 07/05/18 09:00 86 16 150/39 (76) 99 07/05/18 08:00 98.0 85 26 139/48 (78) 100 07/05/18 08:00 90 07/05/18 08:00 Nasal Cannula 3.0 07/05/18 07:00 88 27 147/68 (94) 100 07/05/18 06:52 96 20 Nasal Cannula 2.0 28 07/05/18 06:52 Nasal Cannula 2.0 28 07/05/18 06:52 96 Nasal Cannula 2.0 28 07/05/18 06:00 84 26 138/59 (85) 100 07/05/18 05:00 86 27 94/53 (67) 100 07/05/18 04:00 91 07/05/18 04:00 98.8 91 32 101/50 (67) 99 07/05/18 04:00 Nasal Cannula 3.0 07/05/18 03:00 86 26 100/53 (69) 100 07/05/18 02:00 87 25 97/54 (68) 100 07/05/18 01:00 90 28 104/65 (78) 100 07/05/18 00:00 Nasal Cannula 3.0 07/05/18 00:00 98.5 83 26 98/65 (76) 100 07/04/18 23:00 85 24 93/60 (71) 100 07/04/18 22:04 98 16 94/58 (70) 100 07/04/18 21:31 94/55 07/04/18 21:00 88 23 94/55 (68) 100 07/04/18 20:17 Nasal Cannula 3.0 32 07/04/18 20:16 95 Nasal Cannula 3.0 32 07/04/18 20:15 97 25 Nasal Cannula 3.0 32 07/04/18 20:00 98.7 88 24 111/60 (77) 100 07/04/18 20:00 88 07/04/18 20:00 Nasal Cannula 3.0 07/04/18 19:00 91 25 94/56 (69) 100 07/04/18 18:00 93 25 94/56 (69) 100 Intake and Output 07/04/18 07/05/18 19:00 07:00 Intake Total 1450 ml 1417.5 ml Output Total 640 ml 620 ml Balance 810 ml 797.5 ml Intake Oral 0 ml Free Water 100 ml IV Total 1200 ml 1237.5 ml Tube Feeding 150 ml 180 ml Output Urine Total 640 ml 620 ml Height (Feet): 5 Height (Inches): 8.00 Weight (Pounds): 180 Objective PE General Appearance: lethargic, Chronically Ill Neck: limited range of motion, other - old tracheostomy Respiratory: no respiratory distress, rhonchi Cardiovascular: normal peripheral pulses Gastrointestinal: soft Musculoskeletal: decreased range of motion Neurologic: motor weakness, other - somnolent Skin: other - large sacral decubitus ulcer Huey Garcia MD July 05, 2018 17:03
--- NOTE | 2018-07-05 17:04 | Diagnostic Imaging Report ---
Indication: Abdominal pain Technique: Continuous helical transaxial imaging of the abdomen and pelvis was obtained from the lung bases to the pubic symphysis. No intravenous contrast was administered. Coronal 2-D reformats were also obtained. Automatic Exposure Control was utilized. Total Dose length Product (DLP): 1196.[address] Dose Index Volume (CTDIvol): 19.51 mGy Comparison: none Findings: There is a moderate amount of artifact limiting evaluation. Trace bilateral pleural effusion posterior basal atelectasis versus pneumonia demonstrated. A small pericardial effusion is present. Gastrostomy appears in good position. Small gallstones versus sludge may be present. No nephrolithiasis or hydronephrosis demonstrated. Small umbilical hernia containing fat demonstrated. Small amount of free fluid noted within the pelvis there is a moderate degree of a thickening of the wall of distal small bowel including the terminal ileum. There is a small left ventral hernia containing fat. Naik catheter appears to be in good position. There is a prominent grade 4 sacral decubitus ulcer extending to the lower sacrum, coccyx region. There is a marked erosion of the lower sacrum and coccyx. Findings consistent with osteomyelitis. IMPRESSION: Terminal ileitis with the moderate wall thickening noted. Nature of this is not known and could be infectious, ischemic or due to inflammatory bowel disease. Correlate clinically. Grade 4 decubitus ulcer with erosion osteomyelitis of the lower sacrum and coccyx. No abscess identified. Anasarca Trace free fluid in the abdomen Gastrostomy Trace basilar effusions and atelectasis versus infiltrate. Trace pericardial effusion Left inguinal hernia containing fat. The CT scanner at [facility] is accredited by the [employer] and the scans are performed using dose optimization techniques as appropriate to a performed exam including Automatic Exposure control.
--- NOTE | 2018-07-05 17:11 | NUR ---
NURSE NOTES: Dr. Hernadez seen and examined patient. Ordered Duoneb INH HHN Q6HR PRN for SOB, Keep SpO2 between 90-96%. Order entered, noted, and carried out. Patient noted on room air SpO2 94% with no SOB. Will continue to monitor patient.
--- NOTE | 2018-07-05 17:40 | NUR ---
NURSE NOTES: Called and left message for MARIANN Stokes with phone number provided in wei, . Message in regards to new Head CT results of Left parietal infarct. Awaiting call back. Will continue to monitor patient. Addendum: 07/05/18 at 1822 by KERVIN GREENE RN NURSE NOTES: Correction: Head CT result of Acute left parietal infarct. Noted.
[2018-07-05] MEDS: Vancomycin 1gm/D5W 275ml IVPB SCH ×2 (17:45)
--- NOTE | 2018-07-05 18:10 | NUR ---
NURSE NOTES: Placed 2nd call to MARIANN Stokes for neurologist, regarding Head CT result of Acute left parietal infarct. Awaiting call back. Will continue to monitor patient.
[2018-07-05 18:56] LABS: BASOPHILS % (AUTO) 1.6 % (0.0-2.0); EOSINOPHILS % (AUTO) 3.8 % (0.0-3.0); HEMOGLOBIN 9.3 G/DL (14.2-18.0); MEAN CORPUSCULAR VOLUME 74 FL (80-99); MONOCYTES % (AUTO) 3.2 % (1.0-10.0); NEUTROPHILS % (AUTO) 75.5 % (45.0-75.0); PLATELET COUNT 238 K/UL (150-450); RED BLOOD COUNT 3.91 M/UL (4.70-6.10); RED CELL DISTRIBUTION WIDTH 17.7 % (11.6-14.8); WHITE BLOOD COUNT 7.7 K/UL (4.8-10.8)
--- NOTE | 2018-07-05 19:00 | NUR ---
NURSE NOTES: Contacted and informed Dr. Alejo that this nurse called and left message for MARIANN Stokes twice with no call back at this time, regarding Head CT result of Acute left parietal infarct. Dr. Alejo acknowledged with no new orders at this time. Noted. Charge nurse made aware. Will continue to monitor patient.
--- NOTE | 2018-07-05 19:25 | NUR ---
HAND-OFF: Report given to MARIA ELENA Montgomery.
--- NOTE | 2018-07-05 19:30 | NUR ---
NURSE NOTES: Received Pt is resting on the bed and awake and confused and non-verbal. abled to open the eyes spontaneously. On RA with SaO2 95% noted. Given oral suction and provided oral care. On G-tube feeding with Glucerna 1.5 @ 20cc/hr. No residual noted. On tele monitor with SR. Dressing is clean and dry on multiple wounds area. Changed position. On P-200 mattress for wound management. Pt has PICC line on Rt. upper arm area and dressing is clean and dry. On Naik cath and patent and drainage well. Noted open wound on penis area. Applied Skin barrier cream. CT head result was notified to Dr. Alejo by previous nurse and no new order noted. Checked neuro assessment. No facial drooping noted. but still noted Rt. side weakness. Placed fall precaution. Will continue to care plan.
[2018-07-05] MEDS: Dyna-Hex 2% Top Sol 2oz TOPIC SCH (20:10)
[2018-07-05] MEDS ORDERED: Heparin 5000 units/ml inj SUBQ SCH (21:00)
--- NOTE | 2018-07-05 21:04 | Pulmonology Progress Note ---
Assessment/Plan Assessment/Plan Pulmonary Progress Note Assessment/Plan: 1. Shock/sepsis. 2. Scattered bilateral interstitial opacities, possible multilobar pneumonia. 3. Urinary tract infection. 4. History of MRSA pneumonia in the past. 5. Acute kidney injury. 6. Lactic acidosis. 7. Non ST-elevation myocardial infarction/troponinemia, likely demand ischemia. 8. Protein-calorie malnutrition. 9. Bacteremia 10. long-term resident. 11. 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 12. History of tracheostomy in the past. 13. Dysphagia, status post G-tube treatment. 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 Discussed with: nurses Critical Care - Objective Vital Signs Noted Status: awake Condition: improving Lungs: rhonchi Heart: HR/BP stable Abdomen: soft, non-tender Extremities: edema Micro: Microbiology Date/Time Source Procedure Growth Status 07/01/18 20:00 Nasal Nares MRSA Culture - Final Staphylococcus Aureus - Mrsa Complete 07/01/18 20:00 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 Complete Accucheck: 116 Critical Care - Subjective ROS Limited/Unobtainable: Yes Condition: improving FI02: 32 Vent Support Mode: BiLevel Sputum Amount: Moderate Tube Feeding Amount: 25 Subjective: confused awake ostomy dressed off bipap at thsi tiem time no reports of cp nv or bleeding on IVf no fever no events over night Labs: Laboratory Tests Noted Test 07/04/18 03:50 White Blood Count 13.4 K/UL (4.8-10.8) H Red Blood Count 3.59 M/UL (4.70-6.10) L Hemoglobin 8.5 G/DL (14.2-18.0) L Hematocrit 27.4 % (42.0-52.0) L Mean Corpuscular Volume 76 FL (80-99) L Mean Corpuscular Hemoglobin 23.6 PG (27.0-31.0) L Mean Corpuscular Hemoglobin Concent 31.0 G/DL (32.0-36.0) L Red Cell Distribution Width 18.1 % (11.6-14.8) H Platelet Count 259 K/UL (150-450) Mean Platelet Volume 7.4 FL (6.5-10.1) Neutrophils (%) (Auto) 84.9 % (45.0-75.0) H Lymphocytes (%) (Auto) 10.0 % (20.0-45.0) L Monocytes (%) (Auto) 1.3 % (1.0-10.0) Eosinophils (%) (Auto) 3.1 % (0.0-3.0) H Basophils (%) (Auto) 0.7 % (0.0-2.0) Sodium Level 139 MMOL/L (136-145) Potassium Level 3.6 MMOL/L (3.5-5.1) Chloride Level 106 MMOL/L (98-107) Carbon Dioxide Level 28 MMOL/L (21-32) Anion Gap 5 mmol/L (5-15) Blood Urea Nitrogen 14 mg/dL (7-18) Creatinine 0.6 MG/DL (0.55-1.30) Estimat Glomerular Filtration Rate > 60 mL/min (>60) Glucose Level 98 MG/DL (74-106) Calcium Level 7.8 MG/DL (8.5-10.1) L Current Medications Medications (Trade) Dose Ordered Sig/Patience Route PRN Reason Start Time Stop Time Status Last Admin Dose Admin Acetaminophen (Tylenol) 650 mg Q4H PRN RECTAL FEVER 07/01/18 14:45 07/31/18 14:44 Albuterol/ Ipratropium (Albuterol/ Ipratropium) 3 ml Q4H PRN HHN Shortness of Breath 07/01/18 14:45 07/06/18 14:44 Amikacin Protocol (Amikacin pharmacy to dose) 1 ea DAILY PRN MISC Per rx protocol 07/02/18 08:15 08/01/18 08:14 Amikacin Sulfate 1000 mg/Sodium Chloride 114 ml @ 228 mls/hr Q24H IV 07/03/18 11:00 07/10/18 10:59 07/04/18 11:32 Chlorhexidine Gluconate (Cristine-Hex 2%) 1 applic DAILY@2000 TOPIC 07/01/18 20:00 07/31/18 19:59 07/03/18 20:58 Dextrose (Dextrose 50%) 25 ml Q30M PRN IV Hypoglycemia 07/02/18 10:45 08/01/18 10:44 Dextrose (Dextrose 50%) 50 ml Q30M PRN IV Hypoglycemia 07/02/18 10:45 08/01/18 10:44 Heparin Sodium (Porcine) (Heparin 5000 units/ml) 5,000 units EVERY 12 HOURS SUBQ 07/01/18 21:00 07/31/18 20:59 07/04/18 09:37 Insulin Aspart (NovoLOG) Q6HR SUBQ 07/03/18 13:00 08/02/18 12:59 07/04/18 17:06 Norepinephrine Bitartrate 4 mg/ Dextrose 250 ml @ 0 mls/hr Q24H IV 07/01/18 22:00 07/31/18 21:59 07/03/18 12:11 Ondansetron HCl (Zofran) 4 mg Q6H PRN IVP Nausea & Vomiting 07/01/18 14:45 07/31/18 14:44 07/01/18 18:23 Piperacillin Sod/ Tazobactam Sod 3.375 gm/Sodium Chloride 110 ml @ 27.5 mls/hr EVERY 8 HOURS IVPB 07/01/18 22:00 07/06/18 21:59 07/04/18 14:10 Sodium Chloride 1,000 ml @ 100 mls/hr Q10H IVLG 07/01/18 14:46 07/31/18 14:45 07/04/18 12:48 Subjective ROS Limited/Unobtainable: No Allergies: Coded Allergies: No Known Allergies (Unverified , 09/29/17) Objective Last 24 Hour Vital Signs Date Time Temp Pulse Resp B/P (MAP) Pulse Ox O2 Delivery O2 Flow Rate FiO2 07/05/18 20:00 97.5 100 24 140/65 (90) 95 07/05/18 20:00 97 07/05/18 19:00 96 Nasal Cannula 2.0 28 07/05/18 19:00 Nasal Cannula 2.0 28 07/05/18 19:00 94 20 Nasal Cannula 2.0 28 07/05/18 16:00 91 07/05/18 16:00 97.2 97 24 109/72 (84) 95 07/05/18 16:00 Nasal Cannula 3.0 5/6/19 13:00 87 28 147/50 (82) 100 07/05/18 12:00 Nasal Cannula 3.0 07/05/18 12:00 98.0 85 27 138/52 (80) 100 07/05/18 12:00 91 07/05/18 11:00 89 27 155/51 (85) 100 07/05/18 10:00 93 27 146/39 (74) 99 07/05/18 09:00 86 16 150/39 (76) 99 07/05/18 08:00 98.0 85 26 139/48 (78) 100 07/05/18 08:00 90 07/05/18 08:00 Nasal Cannula 3.0 07/05/18 07:00 88 27 147/68 (94) 100 07/05/18 06:52 96 20 Nasal Cannula 2.0 28 07/05/18 06:52 Nasal Cannula 2.0 28 07/05/18 06:52 96 Nasal Cannula 2.0 28 07/05/18 06:00 84 26 138/59 (85) 100 07/05/18 05:00 86 27 94/53 (67) 100 07/05/18 04:00 91 07/05/18 04:00 98.8 91 32 101/50 (67) 99 07/05/18 04:00 Nasal Cannula 3.0 07/05/18 03:00 86 26 100/53 (69) 100 07/05/18 02:00 87 25 97/54 (68) 100 07/05/18 01:00 90 28 104/65 (78) 100 07/05/18 00:00 Nasal Cannula 3.0 07/05/18 00:00 98.5 83 26 98/65 (76) 100 07/04/18 23:00 85 24 93/60 (71) 100 07/04/18 22:04 98 16 94/58 (70) 100 07/04/18 21:31 94/55 Intake and Output 07/04/18 07/05/18 19:00 07:00 Intake Total 1450 ml 1417.5 ml Output Total 640 ml 620 ml Balance 810 ml 797.5 ml Intake Oral 0 ml Free Water 100 ml IV Total 1200 ml 1237.5 ml Tube Feeding 150 ml 180 ml Output Urine Total 640 ml 620 ml Microbiology Date/Time Source Procedure Growth Status 07/03/18 16:00 Blood Blood Culture - Preliminary NO GROWTH AFTER 24 HOURS Resulted 07/03/18 15:45 Blood Blood Culture - Preliminary NO GROWTH AFTER 24 HOURS Resulted 07/04/18 13:00 Sputum Induced Gram Stain - Final Resulted 07/04/18 13:00 Sputum Induced Sputum Culture Pending Resulted Laboratory Tests 07/05/18 18:05: White Blood Count 7.7, Red Blood Count 3.91L, Hemoglobin 9.3L, Hematocrit 29.0L , Mean Corpuscular Volume 74L, Mean Corpuscular Hemoglobin 23.8L, Mean Corpuscular Hemoglobin Concent 32.0, Red Cell Distribution Width 17.7H, Platelet Count 238, Mean Platelet Volume 6.3L, Neutrophils (%) (Auto) 75.5H, Lymphocytes (%) (Auto) 16.0L, Monocytes (%) (Auto) 3.2, Eosinophils (%) (Auto) 3.8H, Basophils (%) (Auto) 1.6 07/05/18 18:09: Prothrombin Time 11.0, Prothromb Time International Ratio 1.0 Current Medications Medications (Trade) Dose Ordered Sig/Patience Route PRN Reason Start Time Stop Time Status Last Admin Dose Admin Acetaminophen (Tylenol) 650 mg Q4H PRN RECTAL FEVER 07/05/18 14:07 08/04/18 14:06 Albuterol/ Ipratropium (Albuterol/ Ipratropium) 3 ml Q6H PRN HHN Shortness of Breath 07/05/18 17:15 07/10/18 17:14 Amikacin Protocol (Amikacin pharmacy to dose) 1 ea DAILY PRN MISC Per rx protocol 07/06/18 09:00 08/01/18 08:14 Amikacin Sulfate 1000 mg/Sodium Chloride 114 ml @ 228 mls/hr Q24H IV 07/06/18 11:00 07/10/18 10:59 Chlorhexidine Gluconate (Cristine-Hex 2%) 1 applic DAILY@2000 TOPIC 07/05/18 20:00 07/31/18 19:59 07/05/18 20:10 Dextrose (Dextrose 50%) 25 ml Q30M PRN IV Hypoglycemia 07/05/18 14:15 08/01/18 10:44 Dextrose (Dextrose 50%) 50 ml Q30M PRN IV Hypoglycemia 07/05/18 14:15 08/01/18 10:44 Heparin Sodium (Porcine) (Heparin 5000 units/ml) 5,000 units EVERY 12 HOURS SUBQ 07/05/18 21:00 07/31/18 20:59 Insulin Aspart (NovoLOG) Q6HR SUBQ 07/05/18 18:00 08/02/18 12:59 Ondansetron HCl (Zofran) 4 mg Q6H PRN IVP Nausea & Vomiting 07/05/18 14:08 08/04/18 14:07 Piperacillin Sod/ Tazobactam Sod 3.375 gm/Sodium Chloride 110 ml @ 27.5 mls/hr EVERY 8 HOURS IVPB 07/05/18 14:10 07/12/18 14:09 07/05/18 14:21 Sodium Chloride 1,000 ml @ 100 mls/hr Q10H IVLG 07/05/18 14:07 08/04/18 14:06 07/05/18 14:20 Vancomycin HCl (Vanco rx to dose) 1 ea DAILY PRN MISC Per rx protocol 07/05/18 16:00 08/04/18 15:59 Vancomycin HCl 1 gm/Dextrose 275 ml @ 183.708 mls/hr Q12HR@0500,1700 IVPB 07/05/18 17:00 07/10/18 16:59 07/05/18 17:45 Inocente Hernadez MD July 05, 2018 21:04
--- NOTE | 2018-07-05 21:43 | Neurology Progress Note ---
Interim History Interim History ROS Limited/Unobtainable: Yes Complaints: Acute CVA Events: On room air- following midline commands Interim History HEad CT confirming acute CVA - left parietal infarct Review of Systems All Systems: reviewed and negative except above Objective Physical Exam Last Vital Signs Date Time Temp Pulse Resp B/P (MAP) Pulse Ox O2 Delivery O2 Flow Rate FiO2 07/05/18 20:00 97.5 100 24 140/65 (90) 95 07/05/18 19:00 Nasal Cannula 2.0 28 Laboratory Tests Test 07/05/18 18:05 07/05/18 18:09 White Blood Count 7.7 K/UL (4.8-10.8) Red Blood Count 3.91 M/UL (4.70-6.10) L Hemoglobin 9.3 G/DL (14.2-18.0) L Hematocrit 29.0 % (42.0-52.0) L Mean Corpuscular Volume 74 FL (80-99) L Mean Corpuscular Hemoglobin 23.8 PG (27.0-31.0) L Mean Corpuscular Hemoglobin Concent 32.0 G/DL (32.0-36.0) Red Cell Distribution Width 17.7 % (11.6-14.8) H Platelet Count 238 K/UL (150-450) Mean Platelet Volume 6.3 FL (6.5-10.1) L Neutrophils (%) (Auto) 75.5 % (45.0-75.0) H Lymphocytes (%) (Auto) 16.0 % (20.0-45.0) L Monocytes (%) (Auto) 3.2 % (1.0-10.0) Eosinophils (%) (Auto) 3.8 % (0.0-3.0) H Basophils (%) (Auto) 1.6 % (0.0-2.0) Prothrombin Time 11.0 SEC (9.30-11.50) Prothromb Time International Ratio 1.0 (0.9-1.1) General: other - More Alert today on exam Head: other Neurologic Exam Mental Status: other Speech: other Language: other Cranial Nerve II: other Cranial Nerves III, IV, : other Cranial Nerve V: other Cranial Nerve VII: other Cranial Nerve VIII: other Cranial Nerve IX: other Cranial Nerve XI: other Cranial Nerve XII: other Motor System: other Sensory: other Coordination: other Objective He is on room air now and following midline and LUE commands. His RUE has no movement, and there is very minimal movement in LEs. Appears he is back to his baseline. He is still nonverbal. Pupils PERRL. functional quadriplegia Impression/Recommendations Problems: (1) Acute encephalopathy (2) Sepsis (3) Non-STEMI (non-ST elevated myocardial infarction) (4) Fever (5) Leukocytosis (6) Acute CVA (cerebrovascular accident) Assessment & Plan: Start Atorvastatin 40mg Continue ASA 81mg Consider MRI Brain for better characterization of stroke SBP< 140 Check Lipids Check HgBA1c Maintain normoglycemia with ISS (7) Hypocalcemia (8) Hypokalemia Status: doing well, stable, progressing Recommendations Maintain Sleep hygiene - COnsider MElatonin 3mg QHS Frequently reorient patient Avoid benzodiazapenes, anticholinergics and opioid narcotics OOB as able with PT - or in chair Maintain normothermia Maintain normoglycemia with ISS Continue Q 4 hour obs Correct/ Replete Lytes as needed Start Atorvastatin 40mg Contine ASA 81mg SBP<140 TTE Bilateral Carotid U/S Katlin Stokes N.P. July 05, 2018 21:43
[2018-07-06] VITALS: BP 120/73
[2018-07-06 04:00] VITALS: BP 120/75
[2018-07-06] MEDS: Vancomycin 1gm/D5W 275ml IVPB SCH ×4 (04:56→17:18)
[2018-07-06 05:29] LABS: BASOPHILS % (AUTO) 0.8 % (0.0-2.0); EOSINOPHILS % (AUTO) 3.8 % (0.0-3.0); HEMATOCRIT 27.1 % (42.0-52.0); HEMOGLOBIN 8.5 G/DL (14.2-18.0); LYMPHOCYTES % (AUTO) 17.7 % (20.0-45.0); MEAN CORPUSCULAR VOLUME 75 FL (80-99); MONOCYTES % (AUTO) 3.1 % (1.0-10.0); NEUTROPHILS % (AUTO) 74.5 % (45.0-75.0); PLATELET COUNT 276 K/UL (150-450); RED BLOOD COUNT 3.59 M/UL (4.70-6.10); RED CELL DISTRIBUTION WIDTH 17.8 % (11.6-14.8); WHITE BLOOD COUNT 7.7 K/UL (4.8-10.8)
[2018-07-06 05:44] LABS: ANION GAP 5 mmol/L (5-15); BLOOD UREA NITROGEN 8 mg/dL (7-18); CALCIUM 7.7 MG/DL (8.5-10.1); CARBON DIOXIDE 30 MMOL/L (21-32); CREATININE 0.5 MG/DL (0.55-1.30)
[2018-07-06 05:58] LABS: SODIUM 146 MMOL/L (136-145)
[2018-07-06 05:59] LABS: CHLORIDE 110 MMOL/L (98-107); POTASSIUM 2.6 MMOL/L (3.5-5.1)
[2018-07-06] MEDS: Piperacillin/Tazobactam 3.375 GM in NS 110 ML IVPB SCH ×3 (06:33→21:00)
[2018-07-06] MEDS: NovoLOG Insulin Flexpen SUBQ SCH ×5 (07:02→23:05)
[2018-07-06 07:11] LABS: ANION GAP 3 mmol/L (5-15); BLOOD UREA NITROGEN 8 mg/dL (7-18); CALCIUM 7.7 MG/DL (8.5-10.1); CARBON DIOXIDE 32 MMOL/L (21-32); CHLORIDE 107 MMOL/L (98-107); CREATININE 0.5 MG/DL (0.55-1.30); SODIUM 141 MMOL/L (136-145)
[2018-07-06 07:15] LABS: POTASSIUM 2.6 MMOL/L (3.5-5.1)
--- NOTE | 2018-07-06 07:15 | NUR ---
NURSE NOTES: Received report from MARIA ELENA Montgomery. Observed patient in bed, opens eyes spontaneously, nonverbal. No distress noted on room air. GT site intact with ongoing feeding. HOB elevated. Naik intact and draining well. PICC line patent, IV fluid running at prescribed rate. No s/s of pain at this time. Bed at lowest position, side rails up, call light within reach. Will continue to monitor.
--- NOTE | 2018-07-06 07:25 | NUR ---
HAND-OFF: Report given to MARIA ELENA Gonzalez. Pt is resting on the bed and No sign of acute distress noted. On RA with SaO2 94% noted.
--- NOTE | 2018-07-06 07:37 | NUR ---
NURSE NOTES: Informed Dr Palafox regarding low potassium level. With new orders, carried out.
--- NOTE | 2018-07-06 07:59 | NUR ---
NURSE NOTES: Clarified heparin order with Dr Garcia d/t decreased hemoglobin. Ordered to hold heparin for now.
[2018-07-06 08:00] VITALS: BP 122/87
[2018-07-06] MEDS ORDERED: Amikacin Rx to dose MISC PRN (09:00)
--- NOTE | 2018-07-06 09:04 | Pulmonology Progress Note ---
Assessment/Plan Problems: (1) Sepsis (2) Sacral decubitus ulcer (3) Fever (4) Non-STEMI (non-ST elevated myocardial infarction) (5) Acute kidney injury (6) Acute encephalopathy (7) Leukocytosis Assessment/Plan ASSESSMENT: The patient is a 62-year-old male intermediate resident with a history of prior CVA, nonverbal at baseline, tracheostomy in the past, G-tube dependent, presenting with altered mental status, hypotension secondary to shock and likely sepsis. I suspect a respiratory source given increased respiratory secretions and scattered bilateral infiltrates. He is saturating well, but we will check ABG to assess baseline gas exchange. He has been started on pressors and broad-spectrum antimicrobial therapy by the emergency department. PROBLEM LIST: 1. Shock/sepsis - HEMODYNAMICALLY STABLE 2. Scattered bilateral interstitial opacities, possible multilobar pneumonia. 3. Providencia UTI and sepsis 4. History of MRSA pneumonia in the past. 5. Acute kidney injury - RESOLVED 6. Lactic acidosis - RESOLVED 7. Non ST-elevation myocardial infarction/troponinemia, likely demand ischemia. 8. Protein-calorie malnutrition. 9. Leukocytosis with significant bandemia - RESOLVED 10. detention resident. 11. 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 12. History of tracheostomy in the past. 13. Dysphagia, status post G-tube treatment 14. Terminal ileitis TREATMENT PLAN: -Optimize pulmonary hygiene -PRN O2 -Monitor prior trach site -RTC and PRN HHN's -Abx per ID, F/U repeat Cx's -CXR pending -Wound care -TF's -Hep SQ -?GI eval -FC, continue to discuss GOC Subjective Allergies: Coded Allergies: No Known Allergies (Unverified , 09/29/17) Subjective AFVSS, on 2L, secretions stable, kiersten TF's, CT AP with terminal ileitis ad stage IV decub, lung cuts with small b effusion and BiB atx + congestion + scattered coarse sounds no distress Objective Last 24 Hour Vital Signs Date Time Temp Pulse Resp B/P (MAP) Pulse Ox O2 Delivery O2 Flow Rate FiO2 07/06/18 08:00 91 07/06/18 08:00 97.7 99 26 122/87 (99) 94 07/06/18 08:00 Room Air 07/06/18 04:00 Room Air 07/06/18 04:00 97 07/06/18 04:00 97.4 92 24 120/75 (90) 98 07/06/18 00:00 97.6 93 24 120/73 (89) 98 07/06/18 00:00 94 07/06/18 00:00 Room Air 07/05/18 20:00 97.5 100 24 140/65 (90) 95 07/05/18 20:00 97 07/05/18 20:00 Room Air 07/05/18 19:00 96 Nasal Cannula 2.0 28 07/05/18 19:00 Nasal Cannula 2.0 28 07/05/18 19:00 94 20 Nasal Cannula 2.0 28 07/05/18 16:00 91 07/05/18 16:00 97.2 97 24 109/72 (84) 95 07/05/18 16:00 Nasal Cannula 3.0 07/05/18 13:00 87 28 147/50 (82) 100 07/05/18 12:00 Nasal Cannula 3.0 07/05/18 12:00 98.0 85 27 138/52 (80) 100 07/05/18 12:00 91 07/05/18 11:00 89 27 155/51 (85) 100 07/05/18 10:00 93 27 146/39 (74) 99 07/05/18 09:00 86 16 150/39 (76) 99 Intake and Output 07/05/18 07/06/18 18:59 06:59 Intake Total 40 ml 2264.000 ml Output Total 815 ml 900 ml Balance -775 ml 1364.000 ml IV Total 1924.000 ml Tube Feeding 40 ml 340 ml Output Urine Total 815 ml 900 ml General Appearance: no acute distress, other - non verbal HEENT: normocephalic, atraumatic, anicteric, mucous membranes moist Respiratory/Chest: rhonchi - coarse B Cardiovascular: normal peripheral pulses, normal rate, regular rhythm Abdomen: normal bowel sounds, soft, non tender, no organomegaly, non distended , other - GT Extremities: no cyanosis, no clubbing, no edema Microbiology Date/Time Source Procedure Growth Status 07/03/18 16:00 Blood Blood Culture - Preliminary NO GROWTH AFTER 24 HOURS Resulted 07/03/18 15:45 Blood Blood Culture - Preliminary NO GROWTH AFTER 24 HOURS Resulted 07/04/18 13:00 Sputum Induced Gram Stain - Final Resulted 07/04/18 13:00 Sputum Induced Sputum Culture Pending Resulted Laboratory Tests 07/05/18 18:05: White Blood Count 7.7, Red Blood Count 3.91L, Hemoglobin 9.3L, Hematocrit 29.0L , Mean Corpuscular Volume 74L, Mean Corpuscular Hemoglobin 23.8L, Mean Corpuscular Hemoglobin Concent 32.0, Red Cell Distribution Width 17.7H, Platelet Count 238, Mean Platelet Volume 6.3L, Neutrophils (%) (Auto) 75.5H, Lymphocytes (%) (Auto) 16.0L, Monocytes (%) (Auto) 3.2, Eosinophils (%) (Auto) 3.8H, Basophils (%) (Auto) 1.6 07/05/18 18:09: Prothrombin Time 11.0, Prothromb Time International Ratio 1.0 07/06/18 03:50: White Blood Count 7.7, Red Blood Count 3.59L, Hemoglobin 8.5L, Hematocrit 27.1L , Mean Corpuscular Volume 75L, Mean Corpuscular Hemoglobin 23.7L, Mean Corpuscular Hemoglobin Concent 31.4L, Red Cell Distribution Width 17.8H, Platelet Count 276, Mean Platelet Volume 7.5, Neutrophils (%) (Auto) 74.5, Lymphocytes (%) (Auto) 17.7L, Monocytes (%) (Auto) 3.1, Eosinophils (%) (Auto) 3.8H, Basophils (%) (Auto) 0.8, Sodium Level 146H, Potassium Level 2.6*L, Chloride Level 110H, Carbon Dioxide Level 30, Anion Gap 5, Blood Urea Nitrogen 8 , Creatinine 0.5L, Estimat Glomerular Filtration Rate > 60, Glucose Level 91, Calcium Level 7.7L 07/06/18 06:50: Sodium Level 141, Potassium Level 2.6*L, Chloride Level 107, Carbon Dioxide Level 32, Anion Gap 3L, Blood Urea Nitrogen 8, Creatinine 0.5L, Estimat Glomerular Filtration Rate > 60, Glucose Level 139H, Calcium Level 7.7L Current Medications Medications (Trade) Dose Ordered Sig/Patience Route PRN Reason Start Time Stop Time Status Last Admin Dose Admin Acetaminophen (Tylenol) 650 mg Q4H PRN RECTAL FEVER 07/05/18 14:07 08/04/18 14:06 Albuterol/ Ipratropium (Albuterol/ Ipratropium) 3 ml Q6H PRN HHN Shortness of Breath 07/05/18 17:15 07/10/18 17:14 Amikacin Protocol (Amikacin pharmacy to dose) 1 ea DAILY PRN MISC Per rx protocol 07/06/18 09:00 08/01/18 08:14 Amikacin Sulfate 1000 mg/Sodium Chloride 114 ml @ 228 mls/hr Q24H IV 07/06/18 11:00 07/10/18 10:59 Chlorhexidine Gluconate (Cristine-Hex 2%) 1 applic DAILY@2000 TOPIC 07/05/18 20:00 07/31/18 19:59 07/05/18 20:10 Dextrose (Dextrose 50%) 25 ml Q30M PRN IV Hypoglycemia 07/05/18 14:15 08/01/18 10:44 Dextrose (Dextrose 50%) 50 ml Q30M PRN IV Hypoglycemia 07/05/18 14:15 08/01/18 10:44 Insulin Aspart (NovoLOG) Q6HR SUBQ 07/05/18 18:00 08/02/18 12:59 07/06/18 07:02 Ondansetron HCl (Zofran) 4 mg Q6H PRN IVP Nausea & Vomiting 07/05/18 14:08 08/04/18 14:07 Piperacillin Sod/ Tazobactam Sod 3.375 gm/Sodium Chloride 110 ml @ 27.5 mls/hr EVERY 8 HOURS IVPB 07/05/18 14:10 07/12/18 14:09 07/06/18 06:33 Potassium Chloride 100 ml @ 100 mls/hr Q1H IVPB 07/06/18 08:00 07/06/18 11:59 07/06/18 08:20 Sodium Chloride 1,000 ml @ 100 mls/hr Q10H IVLG 07/05/18 14:07 08/04/18 14:06 07/05/18 21:33 Vancomycin HCl (Vanco rx to dose) 1 ea DAILY PRN MISC Per rx protocol 07/05/18 16:00 08/04/18 15:59 Vancomycin HCl 1 gm/Dextrose 275 ml @ 183.708 mls/hr Q12HR@0500,1700 IVPB 07/05/18 17:00 07/10/18 16:59 07/06/18 04:56 Partha Murrieta MD July 06, 2018 09:04
--- NOTE | 2018-07-06 09:22 | NUR ---
NURSE NOTES: Informed Dr Garcia that Dr Murrieta resumed heparin. Dr Garcia okay to restart heparin.
[2018-07-06] MEDS: Heparin 5000 units/ml inj SUBQ SCH ×2 (09:32→20:05)
--- NOTE | 2018-07-06 10:03 | NUR ---
*-* INSURANCE *-* CLINICALS HAVE BEEN FAXED TO [facility]: RAINER Thompson [phone]
--- NOTE | 2018-07-06 10:07 | NUR ---
RADIOLOGY DEPT., CHEST X-RAY COMPLETED.-P.DYE
[2018-07-06] MEDS: Amikacin 1,000 MG in NS 110 ML IV SCH (11:03)
--- NOTE | 2018-07-06 11:20 | Diagnostic Imaging Report ---
Indication: Cough Comparison: 07/02/2018 A single view chest radiograph was obtained. Findings: Increasing interstitial edema/vascular congestion suspected. The heart is enlarged. No definite pleural effusion seen. PICC line is in good position and stable. IMPRESSION: Suspicion of worsening pulmonary edema
--- NOTE | 2018-07-06 11:29 | Surgery Progress Note ---
Surgery Progress Note Subjective Additional Comments no acute events. downgraded. stable. comfortable. Objective Last 24 Hour Vital Signs Date Time Temp Pulse Resp B/P (MAP) Pulse Ox O2 Delivery O2 Flow Rate FiO2 07/06/18 08:00 91 07/06/18 08:00 97.7 99 26 122/87 (99) 94 07/06/18 08:00 Room Air 07/06/18 04:00 Room Air 07/06/18 04:00 97 07/06/18 04:00 97.4 92 24 120/75 (90) 98 07/06/18 00:00 97.6 93 24 120/73 (89) 98 07/06/18 00:00 94 07/06/18 00:00 Room Air 07/05/18 20:00 97.5 100 24 140/65 (90) 95 07/05/18 20:00 97 07/05/18 20:00 Room Air 07/05/18 19:00 96 Nasal Cannula 2.0 28 07/05/18 19:00 Nasal Cannula 2.0 28 07/05/18 19:00 94 20 Nasal Cannula 2.0 28 07/05/18 16:00 91 07/05/18 16:00 97.2 97 24 109/72 (84) 95 07/05/18 16:00 Nasal Cannula 3.0 07/05/18 13:00 87 28 147/50 (82) 100 07/05/18 12:00 Nasal Cannula 3.0 07/05/18 12:00 98.0 85 27 138/52 (80) 100 07/05/18 12:00 91 I&O Intake and Output 07/05/18 07/06/18 19:00 07:00 Intake Total 659 ml 1785.000 ml Output Total 770 ml 900 ml Balance -111 ml 885.000 ml IV Total 599 ml 1425.000 ml Tube Feeding 60 ml 360 ml Output Urine Total 770 ml 900 ml Drains: other Cardiovascular: RSR Respiratory: clear Abdomen: soft, present bowel sounds, non-distended Extremities: no tenderness, no cyanosis Laboratory Tests Test 07/05/18 18:05 07/05/18 18:09 07/06/18 03:50 07/06/18 06:35 White Blood Count 7.7 K/UL (4.8-10.8) 7.7 K/UL (4.8-10.8) Red Blood Count 3.91 M/UL (4.70-6.10) L 3.59 M/UL (4.70-6.10) L Hemoglobin 9.3 G/DL (14.2-18.0) L 8.5 G/DL (14.2-18.0) L Hematocrit 29.0 % (42.0-52.0) L 27.1 % (42.0-52.0) L Mean Corpuscular Volume 74 FL (80-99) L 75 FL (80-99) L Mean Corpuscular Hemoglobin 23.8 PG (27.0-31.0) L 23.7 PG (27.0-31.0) L Mean Corpuscular Hemoglobin Concent 32.0 G/DL (32.0-36.0) 31.4 G/DL (32.0-36.0) L Red Cell Distribution Width 17.7 % (11.6-14.8) H 17.8 % (11.6-14.8) H Platelet Count 238 K/UL (150-450) 276 K/UL (150-450) Mean Platelet Volume 6.3 FL (6.5-10.1) L 7.5 FL (6.5-10.1) Neutrophils (%) (Auto) 75.5 % (45.0-75.0) H 74.5 % (45.0-75.0) Lymphocytes (%) (Auto) 16.0 % (20.0-45.0) L 17.7 % (20.0-45.0) L Monocytes (%) (Auto) 3.2 % (1.0-10.0) 3.1 % (1.0-10.0) Eosinophils (%) (Auto) 3.8 % (0.0-3.0) H 3.8 % (0.0-3.0) H Basophils (%) (Auto) 1.6 % (0.0-2.0) 0.8 % (0.0-2.0) Prothrombin Time 11.0 SEC (9.30-11.50) Prothromb Time International Ratio 1.0 (0.9-1.1) Sodium Level 146 MMOL/L (136-145) H Potassium Level 2.6 MMOL/L (3.5-5.1) *L Chloride Level 110 MMOL/L (98-107) H Carbon Dioxide Level 30 MMOL/L (21-32) Anion Gap 5 mmol/L (5-15) Blood Urea Nitrogen 8 mg/dL (7-18) Creatinine 0.5 MG/DL (0.55-1.30) L Estimat Glomerular Filtration Rate > 60 mL/min (>60) Glucose Level 91 MG/DL (74-106) Calcium Level 7.7 MG/DL (8.5-10.1) L Pro-B-Type Natriuretic Peptide 7227 pg/mL (0-125) H Test 07/06/18 06:50 Sodium Level 141 MMOL/L (136-145) Potassium Level 2.6 MMOL/L (3.5-5.1) *L Chloride Level 107 MMOL/L (98-107) Carbon Dioxide Level 32 MMOL/L (21-32) Anion Gap 3 mmol/L (5-15) L Blood Urea Nitrogen 8 mg/dL (7-18) Creatinine 0.5 MG/DL (0.55-1.30) L Estimat Glomerular Filtration Rate > 60 mL/min (>60) Glucose Level 139 MG/DL (74-106) H Calcium Level 7.7 MG/DL (8.5-10.1) L Plan Problems: (1) Non-STEMI (non-ST elevated myocardial infarction) (2) Fever (3) Sacral decubitus ulcer Assessment & Plan: Pt presented on admission with multiple pressure injuries.Full thickness sacral pressure injury with undermining. Base of wound is beefy red. Bone is palpable.Borders red and flat. Darker skin tone periwound without erythema or induration. (L)8cm x (W)7.5cm x(D)3cm ,Undermining 7-5 by 5.5cm@ 8 o'clock. No odor noted .Small amt serous exudate noted. Partially opened DTPI L ischium.Base of wound dark brown. Areas that are fluctuant, with scattered openings that are viable within base of wound.Periwound without erythema or induration. (L)7.5cm x (W)4.2cmPartial thickness pressure injury noted to posterior Upper L thigh (L)0.6cm x (W) 0.5cm.Base of wound is moist -viable.No odor or exudate noted. Dry peeling skin without erythema periwound. Partially opened DTPI lateral L Tibia. Base of wound with 40% pink granulation otherwise with 60% soft urbina slough. Small amt non-odorous exudate noted. (L) 4.3cm x (W)4.2cm. L heel pressure injury with 80% mixed dry eschar and slough,20% pink granulation. No odor or exudate noted.Periwound is fluctuant but blanchable. Dark skin tone without induration or fluctuance noted to R ischium. Scattered partial thickness openings within affected area of discoloration.Full thickness pressure injury Lateral R malleolus. Base of wound erythematous with trace amt Biofilm.Small amt non-odorous serous exudate noted.Erythema noted along borders and periwound.No odor noted.(L)1cm x (W)1.2cm. Blood filled blister noted to lateral R heel. Base of wound is purple and fluctuant. Non-blanchable erythema with fluctuance noted periwound. (L)(L)2cm x (W)2.5cm. Tx.Plan: Cleanse sacral wound with Saline. Loosely pack with Hydrogel impregnated kerlix.Apply Triad paste periwound. Cover with Optifoam drsg. Change Daily and PRN. Cleanse L Ischium with Saline. Apply Triad Paste. Cover with Optifoam drsg. Change every 3 days and prn. Cleanse lateral tibia with Saline. Apply Therahoney. Cavilon Skin Barrier Periwound. Cover with Optifoam drsg. Change every 3 days and prn. Cleanse L heel with Saline. Apply Therahoney. Apply Cavilon Skin Barrier periwound. Cover with Optifoam drsg. Change every 3 days and prn. Apply Triad Paste to R ischium . Cover with Optifoam drsg. Change every 3 days and prn. Cleanse R lateral Malleolus with Saline. Apply Therahoney. Apply Cavilon Periwound. Cover with Optifoam drsg Change every 3 days and prn. Apply Cavilon Skin Barrier to R heel . Cover with Optifoam drsg. Change every 7 days and prn. APM/SELENA Mattress overlay. Reposition at least every 2hours or as tolerated. 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 2) Swallowing difficulty r/t dysphagia and h/o CVA as evidenced by pt is PEG dep. CURRENT TF:NPO ENTERAL NUTRITION RECOMMENDATIONS: Glucerna 1.5 @55ml/hr x24 hrs + Prosource 1pkt daily to provide 1320ml, 1980 kcal, 109g +11g prot, 1002ml free H2O - With HEMODYNAMIC STABILTY and as medically appropriate , start glucerna 1.5 @ 25ml/hr, advance as tolerated 10ml/hr q 4-6 hrs to goal - Add Prosource 1pkt QD to meet protein needs - Flush per MD. HOB over 30 degrees WITHOUT HEMODYNAMIC STABILITY, rec trophic feeding of Glucerna 1.5 @ 15ml/hr x 24 hrs ADDITIONAL RECOMMENDATIONS: 1) Wound care: add Vit C 500mg QD, Rafael 1pkt BID : TF @ goal will provide 100% RDI 2) Per SNF, pt's HT=5'10", QJ=225hwe (obtained 06/12/18) 3) Re-calibrated bedscale wt, weekly wt monitoring 4) Monitor HD stability 5) Monitor lytes, replete as needed (low mag) (5) Acute encephalopathy (6) Septic shock (7) Leukocytosis (8) Acute kidney injury Tonio Raza July 06, 2018 11:29
[2018-07-06 12:00] VITALS: BP 113/69
--- NOTE | 2018-07-06 13:10 | General Progress Note ---
Assessment/Plan Status: stable, progressing Assessment/Plan: Assessment and Recs: # Leukocytosis/Elevated white blood cell count, unspecified likely related to underlying stress reaction, versus in this case septic shock REQUIRING pressors , elevated lactate likely uti v in addition sacral ulceration infection --> have reviewed peripheral smear and bandemia/neutrophilia noted, also metamyelocytes and meylocytes noted initially --> continue antibiotics if they have been started by ID team --> monitor for resolution ==> trend 29k-->43k-->13k-->7 # Anemia of chronic disease (or of iron deficiency) due to underlying chronic medical issues, multifactorial --> Anemia workup has been ordered, rule out gi bleed --> No evidence of hemolysis is noted, peripheral smear has been reviewed. --> Hgb goal >7. Transfuse prn. --> Epogen or iron at this time is not particularly indicated --> Medications have been reviewed --> evaluate with Gi team prn --> transfuse if hgb is < 7 (will trend CBC daily) --> low threshold for gi evaluation in case has occult + ==> hgb 9.8-->8.5-->8.5 # Coagulation defect, multifactorial usually related to poor PO intake versus medications, vesus in this case septic shock, inr is 1.3 --> administer Vitamin K if patient is bleeding or FFP if the INR is >10 --> hold off on ffp unless bleeding, consider vit K as needed --> mixing study as needed # DARRIAN secondary to ATN --> per renal # Septic shock suspected to be due to infected pressure ulcers --> on abx as per id # Gram negative bacteremia --> on abx # Acute metabolic encephalopathy # Functional quadriplegia # Sacral pressure ulcers,present on admission --> per surg # Type 2 NSTEMI from demand ischemia from septic shock --> per cards # Respiraotry failure on bipap prn --> hx of old trach # DVT ppx with hep sq as long as h/h stable The timing of this note does not necessarily reflect the time of the patient was seen. Greatly appreciate consultation! Subjective Constitutional: Denies: no symptoms, chills, diaphoresis, fever, malaise, weakness, other HEENT: Denies: no symptoms, eye pain, blurred vision, tearing, double vision, ear pain, ear discharge, nose pain, nose congestion, throat pain, throat swelling, mouth pain, mouth swelling, other Cardiovascular: Denies: no symptoms, chest pain, edema, irregular heart rate, lightheadedness, palpitations, syncope, other Respiratory: Denies: no symptoms, cough, orthopnea, shortness of breath, SOB with excertion, SOB at rest, sputum, stridor, wheezing, other Gastrointestinal/Abdominal: Denies: no symptoms, abdomen distended, abdominal pain, black stools, tarry stools, blood in stool, constipated, diarrhea, difficulty swallowing, nausea, poor appetite, poor fluid intake, rectal bleeding , vomiting, other Genitourinary: Denies: no symptoms, burning, discharge, frequency, flank pain, hematuria, incontinence, pain, urgency, other Neurologic/Psychiatric: Denies: no symptoms, anxiety, depressed, emotional problems, headache, numbness, paresthesia, pre-existing deficit, seizure, tingling, tremors, weakness, other Endocrine: Denies: no symptoms, excessive sweating, flushing, intolerance to cold, intolerance to heat, increased hunger, increased thirst, increased urine, unexplained weight gain, unexplained weight loss, other Hematologic/Lymphatic: Denies: no symptoms, anemia, easy bleeding, easy bruising, other Allergies: Coded Allergies: No Known Allergies (Unverified , 09/29/17) Subjective 07/04: remains in the icu, labs have been reviewed, wbc has improved, on abx 07/05: in am transferred to sdu, on bipap prn and peg feeds 07/06: no events to report, currently downgraded, no f/c, no night sweats, peg tube+ Objective Last 24 Hour Vital Signs Date Time Temp Pulse Resp B/P (MAP) Pulse Ox O2 Delivery O2 Flow Rate FiO2 07/06/18 12:00 Room Air 07/06/18 12:00 103 07/06/18 12:00 97.8 101 28 113/69 (84) 96 07/06/18 08:00 91 07/06/18 08:00 97.7 99 26 122/87 (99) 94 07/06/18 08:00 Room Air 07/06/18 04:00 Room Air 07/06/18 04:00 97 07/06/18 04:00 97.4 92 24 120/75 (90) 98 07/06/18 00:00 97.6 93 24 120/73 (89) 98 07/06/18 00:00 94 07/06/18 00:00 Room Air 07/05/18 20:00 97.5 100 24 140/65 (90) 95 07/05/18 20:00 97 07/05/18 20:00 Room Air 07/05/18 19:00 96 Nasal Cannula 2.0 28 07/05/18 19:00 Nasal Cannula 2.0 28 07/05/18 19:00 94 20 Nasal Cannula 2.0 28 07/05/18 16:00 91 07/05/18 16:00 97.2 97 24 109/72 (84) 95 07/05/18 16:00 Nasal Cannula 3.0 Intake and Output 07/05/18 07/06/18 19:00 07:00 Intake Total 659 ml 1785.000 ml Output Total 770 ml 900 ml Balance -111 ml 885.000 ml IV Total 599 ml 1425.000 ml Tube Feeding 60 ml 360 ml Output Urine Total 770 ml 900 ml Laboratory Tests 07/05/18 18:05: White Blood Count 7.7, Red Blood Count 3.91L, Hemoglobin 9.3L, Hematocrit 29.0L , Mean Corpuscular Volume 74L, Mean Corpuscular Hemoglobin 23.8L, Mean Corpuscular Hemoglobin Concent 32.0, Red Cell Distribution Width 17.7H, Platelet Count 238, Mean Platelet Volume 6.3L, Neutrophils (%) (Auto) 75.5H, Lymphocytes (%) (Auto) 16.0L, Monocytes (%) (Auto) 3.2, Eosinophils (%) (Auto) 3.8H, Basophils (%) (Auto) 1.6 07/05/18 18:09: Prothrombin Time 11.0, Prothromb Time International Ratio 1.0 07/06/18 03:50: White Blood Count 7.7, Red Blood Count 3.59L, Hemoglobin 8.5L, Hematocrit 27.1L , Mean Corpuscular Volume 75L, Mean Corpuscular Hemoglobin 23.7L, Mean Corpuscular Hemoglobin Concent 31.4L, Red Cell Distribution Width 17.8H, Platelet Count 276, Mean Platelet Volume 7.5, Neutrophils (%) (Auto) 74.5, Lymphocytes (%) (Auto) 17.7L, Monocytes (%) (Auto) 3.1, Eosinophils (%) (Auto) 3.8H, Basophils (%) (Auto) 0.8, Sodium Level 146H, Potassium Level 2.6*L, Chloride Level 110H, Carbon Dioxide Level 30, Anion Gap 5, Blood Urea Nitrogen 8 , Creatinine 0.5L, Estimat Glomerular Filtration Rate > 60, Glucose Level 91, Calcium Level 7.7L 07/06/18 06:35: Pro-B-Type Natriuretic Peptide 7227H 07/06/18 06:50: Sodium Level 141, Potassium Level 2.6*L, Chloride Level 107, Carbon Dioxide Level 32, Anion Gap 3L, Blood Urea Nitrogen 8, Creatinine 0.5L, Estimat Glomerular Filtration Rate > 60, Glucose Level 139H, Calcium Level 7.7L Height (Feet): 5 Height (Inches): 8.00 Weight (Pounds): 180 Objective PE General Appearance: lethargic, Chronically Ill Neck: limited range of motion, other - old tracheostomy Respiratory: no respiratory distress, rhonchi Cardiovascular: normal peripheral pulses Gastrointestinal: soft + peg Musculoskeletal: decreased range of motion Neurologic: motor weakness, other - somnolent Skin: other - large sacral decubitus ulcer Huey Garcia MD July 06, 2018 13:10
[2018-07-06] MEDS: Albuterol/Ipratropium 3ml neb HHN SCH ×2 (13:12→19:44)
[2018-07-06 16:00] VITALS: BP 130/85
--- NOTE | 2018-07-06 16:39 | NUR ---
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 LEUKOCYTOSIS VS: BP 113/69, P 103, T 97.4, RR 28, SpO2 94 RBC 3.59, Hgb 8.5, Hct 27.1, K 2.6, BUN 3, Na 146, CR 0.5 CXR: Suspicion of worsening pulmonary edema IS:ZOSYN 110ml IVPB ALBUTEROL 3ml HHN NS x1L IVLG NOVOLOG SUBQ POTASSIUM CHLORIDE 100ml IVPB AMIKACIN SULFATE 114ml IV HEPARIN SUBQ VANCOMYCIN HCI 275ml IVPB DOWNGRADED FROM ICU 07/05 SDU STATUS
[2018-07-06] MEDS: Ascorbic Acid 500mg tab GT SCH (17:16)
--- NOTE | 2018-07-06 17:33 | General Progress Note ---
Assessment/Plan Status: stable, progressing Assessment/Plan: #Acute metabolic encephalopathy #Septic shock suspected to be due to infected pressure ulcers #Polymicrobial bacteremia and UTI #Acute metabolic encephalopathy #Functional quadriplegia #Sacral pressure ulcers,present on admission -Continue Zosyn and amikacin per ID -continue IV fluids -monitor daily labs -Supportive care -Fall precautions -Aspiration precautions -Surgical consult for pressure ulcers #DARRIAN secondary to ATN, resolved #Hyponatremia #Hypomagnesemia #Hypokalemia -continue supportive care -replace electrolytes prn, labs in AM -Nephrology following #Hypotension #Type 2 NSTEMI from demand ischemia from septic shock -continue supportive care -cardiology consult -cardiac monitoring -serial troponin #Type 2 DM, uncontrolled -start ISS VTE PPx Full Code Subjective Date patient seen: July 06, 2018 Time patient seen: 17:30 ROS Limited/Unobtainable: Yes Allergies: Coded Allergies: No Known Allergies (Unverified , 09/29/17) Subjective Medicine followup for septic shock, gram negative bacteremia, UTI, acute metabolic encephalopathy, DARRIAN due to ATN, leukocytosis resolved. Objective Last 24 Hour Vital Signs Date Time Temp Pulse Resp B/P (MAP) Pulse Ox O2 Delivery O2 Flow Rate FiO2 07/06/18 16:00 103 07/06/18 16:00 Room Air 07/06/18 13:26 95 18 99 Room Air 21 07/06/18 13:15 21 07/06/18 13:15 95 16 96 Room Air 21 07/06/18 13:15 Room Air 21 07/06/18 13:15 96 Room Air 21 07/06/18 13:15 99 16 Room Air 21 07/06/18 12:00 Room Air 07/06/18 12:00 103 07/06/18 12:00 97.8 101 28 113/69 (84) 96 07/06/18 08:00 91 07/06/18 08:00 97.7 99 26 122/87 (99) 94 07/06/18 08:00 Room Air 07/06/18 04:00 Room Air 07/06/18 04:00 97 07/06/18 04:00 97.4 92 24 120/75 (90) 98 07/06/18 00:00 97.6 93 24 120/73 (89) 98 07/06/18 00:00 94 07/06/18 00:00 Room Air 07/05/18 20:00 97.5 100 24 140/65 (90) 95 07/05/18 20:00 97 07/05/18 20:00 Room Air 07/05/18 19:00 96 Nasal Cannula 2.0 28 07/05/18 19:00 Nasal Cannula 2.0 28 07/05/18 19:00 94 20 Nasal Cannula 2.0 28 Intake and Output 07/05/18 07/06/18 19:00 07:00 Intake Total 659 ml 1785.000 ml Output Total 770 ml 900 ml Balance -111 ml 885.000 ml IV Total 599 ml 1425.000 ml Tube Feeding 60 ml 360 ml Output Urine Total 770 ml 900 ml Laboratory Tests 07/05/18 18:05: White Blood Count 7.7, Red Blood Count 3.91L, Hemoglobin 9.3L, Hematocrit 29.0L , Mean Corpuscular Volume 74L, Mean Corpuscular Hemoglobin 23.8L, Mean Corpuscular Hemoglobin Concent 32.0, Red Cell Distribution Width 17.7H, Platelet Count 238, Mean Platelet Volume 6.3L, Neutrophils (%) (Auto) 75.5H, Lymphocytes (%) (Auto) 16.0L, Monocytes (%) (Auto) 3.2, Eosinophils (%) (Auto) 3.8H, Basophils (%) (Auto) 1.6 07/05/18 18:09: Prothrombin Time 11.0, Prothromb Time International Ratio 1.0 07/06/18 03:50: White Blood Count 7.7, Red Blood Count 3.59L, Hemoglobin 8.5L, Hematocrit 27.1L , Mean Corpuscular Volume 75L, Mean Corpuscular Hemoglobin 23.7L, Mean Corpuscular Hemoglobin Concent 31.4L, Red Cell Distribution Width 17.8H, Platelet Count 276, Mean Platelet Volume 7.5, Neutrophils (%) (Auto) 74.5, Lymphocytes (%) (Auto) 17.7L, Monocytes (%) (Auto) 3.1, Eosinophils (%) (Auto) 3.8H, Basophils (%) (Auto) 0.8, Sodium Level 146H, Potassium Level 2.6*L, Chloride Level 110H, Carbon Dioxide Level 30, Anion Gap 5, Blood Urea Nitrogen 8 , Creatinine 0.5L, Estimat Glomerular Filtration Rate > 60, Glucose Level 91, Calcium Level 7.7L 07/06/18 06:35: Pro-B-Type Natriuretic Peptide 7227H 07/06/18 06:50: Sodium Level 141, Potassium Level 2.6*L, Chloride Level 107, Carbon Dioxide Level 32, Anion Gap 3L, Blood Urea Nitrogen 8, Creatinine 0.5L, Estimat Glomerular Filtration Rate > 60, Glucose Level 139H, Calcium Level 7.7L 07/06/18 17:05: Stool Occult Blood [Pending] Height (Feet): 5 Height (Inches): 8.00 Weight (Pounds): 180 General Appearance: alert, confused Neck: normal alignment, supple Cardiovascular: normal rate, regular rhythm Respiratory/Chest: lungs clear, normal breath sounds Reginald Pulido MD July 06, 2018 17:33
--- NOTE | 2018-07-06 19:02 | NUR ---
HAND-OFF: Report given to MARIA ELENA Diego. Patient in stable condition.
--- NOTE | 2018-07-06 19:05 | NUR ---
NURSE NOTES: Received patient from MARIA ELENA Gonzalez and MARIA ELENA Raines. Will continue plan of care.
[2018-07-06 20:00] VITALS: BP 132/71
[2018-07-06] MEDS: Dyna-Hex 2% Top Sol 2oz TOPIC SCH (20:10)
[2018-07-06] MEDS: Atorvastatin 20mg tab ORAL SCH (21:00)
--- NOTE | 2018-07-06 21:27 | Neurology Progress Note ---
Interim History Interim History ROS Limited/Unobtainable: Yes Complaints: Acute CVA Events: On room air- following midline commands Review of Systems All Systems: reviewed and negative except above Objective Physical Exam Last Vital Signs Date Time Temp Pulse Resp B/P (MAP) Pulse Ox O2 Delivery O2 Flow Rate FiO2 07/06/18 20:00 97.5 100 28 132/71 (91) 93 07/06/18 20:00 Room Air 07/06/18 19:46 21 07/05/18 19:00 2.0 Laboratory Tests Test 07/06/18 03:50 07/06/18 06:35 07/06/18 06:50 07/06/18 17:05 White Blood Count 7.7 K/UL (4.8-10.8) Red Blood Count 3.59 M/UL (4.70-6.10) L Hemoglobin 8.5 G/DL (14.2-18.0) L Hematocrit 27.1 % (42.0-52.0) L Mean Corpuscular Volume 75 FL (80-99) L Mean Corpuscular Hemoglobin 23.7 PG (27.0-31.0) L Mean Corpuscular Hemoglobin Concent 31.4 G/DL (32.0-36.0) L Red Cell Distribution Width 17.8 % (11.6-14.8) H Platelet Count 276 K/UL (150-450) Mean Platelet Volume 7.5 FL (6.5-10.1) Neutrophils (%) (Auto) 74.5 % (45.0-75.0) Lymphocytes (%) (Auto) 17.7 % (20.0-45.0) L Monocytes (%) (Auto) 3.1 % (1.0-10.0) Eosinophils (%) (Auto) 3.8 % (0.0-3.0) H Basophils (%) (Auto) 0.8 % (0.0-2.0) Sodium Level 146 MMOL/L (136-145) H 141 MMOL/L (136-145) Potassium Level 2.6 MMOL/L (3.5-5.1) *L 2.6 MMOL/L (3.5-5.1) *L Chloride Level 110 MMOL/L (98-107) H 107 MMOL/L (98-107) Carbon Dioxide Level 30 MMOL/L (21-32) 32 MMOL/L (21-32) Anion Gap 5 mmol/L (5-15) 3 mmol/L (5-15) L Blood Urea Nitrogen 8 mg/dL (7-18) 8 mg/dL (7-18) Creatinine 0.5 MG/DL (0.55-1.30) L 0.5 MG/DL (0.55-1.30) L Estimat Glomerular Filtration Rate > 60 mL/min (>60) > 60 mL/min (>60) Glucose Level 91 MG/DL (74-106) 139 MG/DL (74-106) H Calcium Level 7.7 MG/DL (8.5-10.1) L 7.7 MG/DL (8.5-10.1) L Pro-B-Type Natriuretic Peptide 7227 pg/mL (0-125) H Stool Occult Blood Pending General: other - More Alert today on exam Head: other Neurologic Exam Mental Status: other Speech: other Language: other Cranial Nerve II: other Cranial Nerves III, IV, : other Cranial Nerve V: other Cranial Nerve VII: other Cranial Nerve VIII: other Cranial Nerve IX: other Cranial Nerve XI: other Cranial Nerve XII: other Motor System: other Sensory: other Coordination: other Objective He is on room air now and following midline and LUE commands. His RUE has no movement, and there is very minimal movement in LEs. Appears he is back to his baseline. He is still nonverbal. Pupils PERRL. functional quadriplegia Impression/Recommendations Problems: (1) Acute encephalopathy (2) Sepsis (3) Non-STEMI (non-ST elevated myocardial infarction) (4) Fever (5) Leukocytosis (6) Acute CVA (cerebrovascular accident) Assessment & Plan: Start Atorvastatin 40mg Continue ASA 81mg Consider MRI Brain for better characterization of stroke SBP< 140 Check Lipids Check HgBA1c Maintain normoglycemia with ISS (7) Hypocalcemia (8) Hypokalemia Status: doing well, stable, progressing Recommendations Frequently reorient patient Avoid benzodiazapenes, anticholinergics and opioid narcotics OOB as able with PT - or in chair Maintain normothermia Maintain normoglycemia with ISS Continue Q 4 hour obs Correct/ Replete Lytes as needed Katlin Stokes N.P. July 06, 2018 21:27
[2018-07-07] VITALS: BP 115/66
[2018-07-07] MEDS: Albuterol/Ipratropium 3ml neb HHN SCH ×4 (01:32→19:57)
[2018-07-07 04:00] VITALS: BP 127/79
[2018-07-07 05:05] LABS: ANION GAP 6 mmol/L (5-15); BLOOD UREA NITROGEN 7 mg/dL (7-18); CARBON DIOXIDE 25 MMOL/L (21-32); CHLORIDE 115 MMOL/L (98-107); CREATININE 0.5 MG/DL (0.55-1.30); SODIUM 147 MMOL/L (136-145)
[2018-07-07 05:20] LABS: POTASSIUM 2.7 MMOL/L (3.5-5.1)
[2018-07-07 05:53] LABS: BASOPHILS % (AUTO) 0.9 % (0.0-2.0); HEMATOCRIT 26.8 % (42.0-52.0); HEMOGLOBIN 8.4 G/DL (14.2-18.0); LYMPHOCYTES % (AUTO) 20.8 % (20.0-45.0); MEAN CORPUSCULAR VOLUME 75 FL (80-99); MONOCYTES % (AUTO) 4.9 % (1.0-10.0); NEUTROPHILS % (AUTO) 70.4 % (45.0-75.0); PLATELET COUNT 318 K/UL (150-450); RED BLOOD COUNT 3.59 M/UL (4.70-6.10)
[2018-07-07] MEDS: Vancomycin 1.5gm/D5W 275ml IVPB SCH ×4 (05:59→17:50)
[2018-07-07] MEDS: Piperacillin/Tazobactam 3.375 GM in NS 110 ML IVPB SCH ×3 (05:59→21:46)
[2018-07-07] MEDS: NovoLOG Insulin Flexpen SUBQ SCH ×3 (06:01→17:54)
--- NOTE | 2018-07-07 06:26 | NUR ---
NURSE NOTES: Left message for Dr. Alejo regarding patient's potassium this AM resulting at 2.7. Awaiting new orders and/or further instructions.
--- NOTE | 2018-07-07 07:08 | NUR ---
HAND-OFF: Report given to MARIA ELENA Raines and MARIA ELENA Gonzalez.
--- NOTE | 2018-07-07 07:25 | NUR ---
NURSE NOTES: Received report from MARIA ELENA Diego. Observed patient in bed, awake, nonverbal but able to follow simple commands. Patient on RA with no distress noted. GT intact, feeding infusing at prescribed rate, tolerating well. PICC line intact with IV fluids infusing at prescribed rate. External catheter in place and draining well. No s/s of pain at this time. Bed in lowest position, side rails up, and call light within reach. Will continue to monitor.
[2018-07-07 08:00] VITALS: BP 130/85
[2018-07-07] MEDS: Ascorbic Acid 500mg tab GT SCH ×2 (08:08→18:04)
[2018-07-07] MEDS: Zinc Sulfate 220mg cap GT SCH (08:08)
[2018-07-07] MEDS: Heparin 5000 units/ml inj SUBQ SCH ×2 (08:10→20:30)
--- NOTE | 2018-07-07 09:08 | NUR ---
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 LEUKOCYTOSIS VS: BP 130/85, P 110, T 97.5, RR 40, SpO2 94 RBC 3.59, H&H 8.4/26.8, Na 147, K 2.7, CR 0.5 IS:HEPARIN SUBQ POTASSIUM CHLORIDE 100ml IVPB K-DUR 40meq ALBUTEROL 3ml HHN NS x1L IV ZOSYN 110ml IVPB VANCOMYCIN 275ml IVPB SDU STATUS
--- NOTE | 2018-07-07 10:19 | NUR ---
*-* INSURANCE *-* UPDTED CLINICALS AND REVIEWS HAVE BEEN FAXED TO [facility]: RAINER REEVES P [phone] F [phone]
[2018-07-07] MEDS: Amikacin 1,000 MG in NS 110 ML IV SCH (10:21)
[2018-07-07 12:00] VITALS: BP 124/65
--- NOTE | 2018-07-07 13:13 | Pulmonology Progress Note ---
Assessment/Plan Problems: (1) Sepsis (2) Sacral decubitus ulcer (3) Fever (4) Non-STEMI (non-ST elevated myocardial infarction) (5) Acute kidney injury (6) Acute encephalopathy (7) Leukocytosis Assessment/Plan ASSESSMENT: The patient is a 62-year-old male [facility] resident with a history of prior CVA, nonverbal at baseline, tracheostomy in the past, G-tube dependent, presenting with altered mental status, hypotension secondary to shock and likely sepsis. I suspect a respiratory source given increased respiratory secretions and scattered bilateral infiltrates. He is saturating well, but we will check ABG to assess baseline gas exchange. He has been started on pressors and broad-spectrum antimicrobial therapy by the emergency department. PROBLEM LIST: 1. Shock/sepsis - HEMODYNAMICALLY STABLE 2. Scattered bilateral interstitial opacities, possible multilobar pneumonia. 3. Providencia UTI and sepsis 4. History of MRSA pneumonia in the past. 5. Acute kidney injury - RESOLVED 6. Lactic acidosis - RESOLVED 7. Non ST-elevation myocardial infarction/troponinemia, likely demand ischemia. 8. Protein-calorie malnutrition. 9. Leukocytosis with significant bandemia - RESOLVED 10. correction resident. 11. 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 12. History of tracheostomy in the past. 13. Dysphagia, status post G-tube treatment 14. Terminal ileitis TREATMENT PLAN: -Optimize pulmonary hygiene -PRN O2 -Monitor prior trach site -RTC and PRN HHN's -Abx per ID, F/U repeat Cx's -Monitor volumes and renal function --> LASIX 20 IV x 1 given -Wound care -TF's -Hep SQ -?GI eval -FC, continue to discuss GOC Subjective Allergies: Coded Allergies: No Known Allergies (Unverified , 09/29/17) Subjective AFVSS, on RA, secretions stable, CXR with inc PVC kiersten TF's + congestion + scattered coarse sounds no distress Objective Last 24 Hour Vital Signs Date Time Temp Pulse Resp B/P (MAP) Pulse Ox O2 Delivery O2 Flow Rate FiO2 07/07/18 12:55 99 18 98 Room Air 21 07/07/18 12:45 102 16 97 Room Air 21 07/07/18 12:45 21 07/07/18 12:00 98.1 107 30 124/65 (84) 94 07/07/18 12:00 104 07/07/18 12:00 Room Air 07/07/18 08:00 Room Air 07/07/18 08:00 108 07/07/18 08:00 98.0 110 29 130/85 (100) 94 07/07/18 07:23 92 18 99 Room Air 21 07/07/18 07:14 21 07/07/18 07:14 97 Room Air 21 07/07/18 07:14 99 16 97 Room Air 07/07/18 07:14 Room Air 07/07/18 04:00 Room Air 07/07/18 04:00 97.5 92 40 127/79 (95) 96 07/07/18 03:00 100 07/07/18 01:33 97 18 97 Room Air 21 07/07/18 01:22 94 18 95 Room Air 21 07/07/18 00:48 97 07/07/18 00:00 97.2 94 36 115/66 (82) 99 07/07/18 00:00 Room Air 07/06/18 20:00 97.5 100 28 132/71 (91) 93 07/06/18 20:00 Room Air 07/06/18 19:46 98 18 99 Room Air 21 07/06/18 19:45 Room Air 21 07/06/18 19:45 96 Room Air 21 07/06/18 19:44 96 18 Room Air 21 07/06/18 19:35 96 18 97 Room Air 21 07/06/18 19:06 99 07/06/18 16:00 98.0 103 29 130/85 (100) 96 07/06/18 16:00 103 07/06/18 16:00 Room Air 07/06/18 13:26 95 18 99 Room Air 21 07/06/18 13:15 21 07/06/18 13:15 95 16 96 Room Air 21 07/06/18 13:15 Room Air 21 07/06/18 13:15 96 Room Air 21 07/06/18 13:15 99 16 Room Air 21 Intake and Output 07/06/18 07/07/18 19:00 07:00 Intake Total 2639.000 ml 2450.30 ml Output Total 1150 ml 1000 ml Balance 1489.000 ml 1450.30 ml Free Water 200 ml 200 ml IV Total 1809.000 ml 1590.30 ml Tube Feeding 630 ml 660 ml Output Urine Total 1150 ml 1000 ml # Bowel Movements 2 1 General Appearance: no acute distress, cachetic HEENT: normocephalic, atraumatic, anicteric, mucous membranes moist Respiratory/Chest: crackles/rales, rhonchi Cardiovascular: normal peripheral pulses, normal rate, regular rhythm Abdomen: normal bowel sounds, soft, non tender, no organomegaly, non distended , no mass Extremities: no cyanosis, no clubbing, no edema Laboratory Tests 07/06/18 17:05: Stool Occult Blood Negative 07/07/18 04:00: Sodium Level 147H, Potassium Level 2.7*L, Chloride Level 115H, Carbon Dioxide Level 25, Anion Gap 6, Blood Urea Nitrogen 7, Creatinine 0.5L, Estimat Glomerular Filtration Rate > 60, Glucose Level 107H, Calcium Level 6.0#L, Vancomycin Level Trough 10.2 07/07/18 05:30: White Blood Count 8.0, Red Blood Count 3.59L, Hemoglobin 8.4L, Hematocrit 26.8L , Mean Corpuscular Volume 75L, Mean Corpuscular Hemoglobin 23.3L, Mean Corpuscular Hemoglobin Concent 31.2L, Red Cell Distribution Width 18.0H, Platelet Count 318, Mean Platelet Volume 7.5, Neutrophils (%) (Auto) 70.4, Lymphocytes (%) (Auto) 20.8, Monocytes (%) (Auto) 4.9, Eosinophils (%) (Auto) 3.0, Basophils (%) (Auto) 0.9 Current Medications Medications (Trade) Dose Ordered Sig/Patience Route PRN Reason Start Time Stop Time Status Last Admin Dose Admin Acetaminophen (Tylenol) 650 mg Q4H PRN RECTAL FEVER 07/05/18 14:07 08/04/18 14:06 Albuterol/ Ipratropium (Albuterol/ Ipratropium) 3 ml Q6H PRN HHN Shortness of Breath 07/05/18 17:15 07/10/18 17:14 Albuterol/ Ipratropium (Albuterol/ Ipratropium) 3 ml Q6HRT HHN 07/06/18 13:00 07/11/18 12:59 07/07/18 12:45 Amikacin Protocol (Amikacin pharmacy to dose) 1 ea DAILY PRN MISC Per rx protocol 07/06/18 09:00 08/01/18 08:14 Amikacin Sulfate 1000 mg/Sodium Chloride 114 ml @ 228 mls/hr Q24H IV 07/06/18 11:00 07/10/18 10:59 07/07/18 10:21 Ascorbic Acid (Vitamin C) 250 mg TWICE A DAY GT 07/06/18 18:00 08/05/18 17:59 07/07/18 08:08 Atorvastatin Calcium (Lipitor) 40 mg BEDTIME ORAL 07/06/18 21:00 08/05/18 20:59 07/06/18 21:00 Chlorhexidine Gluconate (Cristine-Hex 2%) 1 applic DAILY@2000 TOPIC 07/05/18 20:00 07/31/18 19:59 07/06/18 20:10 Dextrose (Dextrose 50%) 25 ml Q30M PRN IV Hypoglycemia 07/05/18 14:15 08/01/18 10:44 Dextrose (Dextrose 50%) 50 ml Q30M PRN IV Hypoglycemia 07/05/18 14:15 08/01/18 10:44 Heparin Sodium (Porcine) (Heparin 5000 units/ml) 5,000 units EVERY 12 HOURS SUBQ 07/06/18 09:00 08/05/18 08:59 07/07/18 08:10 Insulin Aspart (NovoLOG) Q6HR SUBQ 07/05/18 18:00 08/02/18 12:59 07/07/18 12:17 Ondansetron HCl (Zofran) 4 mg Q6H PRN IVP Nausea & Vomiting 07/05/18 14:08 08/04/18 14:07 Piperacillin Sod/ Tazobactam Sod 3.375 gm/Sodium Chloride 110 ml @ 27.5 mls/hr EVERY 8 HOURS IVPB 07/05/18 14:10 07/12/18 14:09 07/07/18 05:59 Potassium Chloride 100 ml @ 100 mls/hr Q1H IVPB 07/07/18 11:00 07/07/18 13:59 07/07/18 12:13 Sodium Chloride 1,000 ml @ 100 mls/hr Q10H IVLG 07/05/18 14:07 08/04/18 14:06 07/07/18 06:14 Vancomycin HCl (Vanco rx to dose) 1 ea DAILY PRN MISC Per rx protocol 07/05/18 16:00 08/04/18 15:59 Vancomycin HCl 1.5 gm/Dextrose 275 ml @ 137.5 mls/ hr Q12H IVPB 07/07/18 06:00 07/12/18 05:59 07/07/18 05:59 Zinc Sulfate (Zinc Sulfate) 220 mg DAILY GT 07/07/18 09:00 07/17/18 08:59 07/07/18 08:08 Partha Murrieta MD July 07, 2018 13:13
--- NOTE | 2018-07-07 13:13 | General Progress Note ---
Assessment/Plan Status: doing well, stable, progressing Assessment/Plan: #Acute metabolic encephalopathy #Septic shock suspected to be due to infected pressure ulcers #Polymicrobial bacteremia and UTI #Acute metabolic encephalopathy #Functional quadriplegia #Sacral pressure ulcers,present on admission -Continue Zosyn and amikacin per ID -continue IV fluids -monitor daily labs -Supportive care -Fall precautions -Aspiration precautions -Surgery following for wound care #DARRIAN secondary to ATN, resolved #Hyponatremia #Hypomagnesemia #Hypokalemia -continue supportive care -replace electrolytes prn, labs in AM -Nephrology following #Hypotension #Type 2 NSTEMI from demand ischemia from septic shock -continue supportive care -cardiology consult -cardiac monitoring -serial troponin #Type 2 DM, uncontrolled -start ISS VTE PPx Full Code Subjective Date patient seen: July 07, 2018 Time patient seen: 12:05 Allergies: Coded Allergies: No Known Allergies (Unverified , 09/29/17) Subjective Medicine followup for septic shock, gram negative bacteremia, UTI, acute metabolic encephalopathy, DARRIAN due to ATN. Objective Last 24 Hour Vital Signs Date Time Temp Pulse Resp B/P (MAP) Pulse Ox O2 Delivery O2 Flow Rate FiO2 07/07/18 12:55 99 18 98 Room Air 07/07/18 12:45 102 16 97 Room Air 07/07/18 12:45 21 07/07/18 12:00 98.1 107 30 124/65 (84) 94 07/07/18 12:00 104 07/07/18 12:00 Room Air 07/07/18 08:00 Room Air 07/07/18 08:00 108 07/07/18 08:00 98.0 110 29 130/85 (100) 94 07/07/18 07:23 92 18 99 Room Air 21 07/07/18 07:14 21 07/07/18 07:14 97 Room Air 07/07/18 07:14 99 16 97 Room Air 07/07/18 07:14 Room Air 07/07/18 04:00 Room Air 07/07/18 04:00 97.5 92 40 127/79 (95) 96 07/07/18 03:00 100 07/07/18 01:33 97 18 97 Room Air 07/07/18 01:22 94 18 95 Room Air 07/07/18 00:48 97 07/07/18 00:00 97.2 94 36 115/66 (82) 99 07/07/18 00:00 Room Air 07/06/18 20:00 97.5 100 28 132/71 (91) 93 07/06/18 20:00 Room Air 07/06/18 19:46 98 18 99 Room Air 21 07/06/18 19:45 Room Air 21 07/06/18 19:45 96 Room Air 21 07/06/18 19:44 96 18 Room Air 07/06/18 19:35 96 18 97 Room Air 21 07/06/18 19:06 99 07/06/18 16:00 98.0 103 29 130/85 (100) 96 07/06/18 16:00 103 07/06/18 16:00 Room Air 07/06/18 13:26 95 18 99 Room Air 21 07/06/18 13:15 21 07/06/18 13:15 95 16 96 Room Air 21 07/06/18 13:15 Room Air 21 07/06/18 13:15 96 Room Air 21 07/06/18 13:15 99 16 Room Air 21 Intake and Output 07/06/18 07/07/18 19:00 07:00 Intake Total 2639.000 ml 2450.30 ml Output Total 1150 ml 1000 ml Balance 1489.000 ml 1450.30 ml Free Water 200 ml 200 ml IV Total 1809.000 ml 1590.30 ml Tube Feeding 630 ml 660 ml Output Urine Total 1150 ml 1000 ml # Bowel Movements 2 1 Laboratory Tests 07/06/18 17:05: Stool Occult Blood Negative 07/07/18 04:00: Sodium Level 147H, Potassium Level 2.7*L, Chloride Level 115H, Carbon Dioxide Level 25, Anion Gap 6, Blood Urea Nitrogen 7, Creatinine 0.5L, Estimat Glomerular Filtration Rate > 60, Glucose Level 107H, Calcium Level 6.0#L, Vancomycin Level Trough 10.2 07/07/18 05:30: White Blood Count 8.0, Red Blood Count 3.59L, Hemoglobin 8.4L, Hematocrit 26.8L , Mean Corpuscular Volume 75L, Mean Corpuscular Hemoglobin 23.3L, Mean Corpuscular Hemoglobin Concent 31.2L, Red Cell Distribution Width 18.0H, Platelet Count 318, Mean Platelet Volume 7.5, Neutrophils (%) (Auto) 70.4, Lymphocytes (%) (Auto) 20.8, Monocytes (%) (Auto) 4.9, Eosinophils (%) (Auto) 3.0, Basophils (%) (Auto) 0.9 Height (Feet): 5 Height (Inches): 8.00 Weight (Pounds): 179 General Appearance: alert, confused Neck: normal alignment, supple Cardiovascular: regular rhythm, tachycardia Respiratory/Chest: other - Bilateral chest congestion Abdomen: non tender, soft Reginald Pulido MD July 07, 2018 13:13
--- NOTE | 2018-07-07 13:24 | General Progress Note ---
Assessment/Plan Status: doing well, stable, progressing Assessment/Plan: Assessment and Recs: # Leukocytosis/Elevated white blood cell count, unspecified likely related to underlying stress reaction, versus in this case septic shock REQUIRING pressors , elevated lactate likely uti v in addition sacral ulceration infection --> have reviewed peripheral smear and bandemia/neutrophilia noted, also metamyelocytes and meylocytes noted initially --> continue antibiotics if they have been started by ID team --> monitor for resolution ==> trend 29k-->43k-->13k-->7 # Anemia of chronic disease (or of iron deficiency) due to underlying chronic medical issues, multifactorial --> Anemia workup has been ordered, rule out gi bleed --> No evidence of hemolysis is noted, peripheral smear has been reviewed. --> Hgb goal >7. Transfuse prn. --> Epogen or iron at this time is not particularly indicated --> Medications have been reviewed --> evaluate with Gi team prn --> transfuse if hgb is < 7 (will trend CBC daily) --> low threshold for gi evaluation in case has occult + ==> hgb 9.8-->8.5-->8.5-->8.4 # Coagulation defect, multifactorial usually related to poor PO intake versus medications, vesus in this case septic shock, inr is 1.3 --> administer Vitamin K if patient is bleeding or FFP if the INR is >10 --> hold off on ffp unless bleeding, consider vit K as needed --> mixing study as needed # DARRIAN secondary to ATN --> per renal # Septic shock suspected to be due to infected pressure ulcers --> on abx as per id # Gram negative bacteremia --> on abx as per ID # Acute metabolic encephalopathy # Functional quadriplegia # Sacral pressure ulcers,present on admission --> per surg # Type 2 NSTEMI from demand ischemia from septic shock --> per cards # Respiraotry failure on bipap prn --> hx of old trach # DVT ppx with hep sq as long as h/h stable The timing of this note does not necessarily reflect the time of the patient was seen. Greatly appreciate consultation! Subjective Constitutional: Denies: no symptoms, chills, diaphoresis, fever, malaise, weakness, other HEENT: Denies: no symptoms, eye pain, blurred vision, tearing, double vision, ear pain, ear discharge, nose pain, nose congestion, throat pain, throat swelling, mouth pain, mouth swelling, other Cardiovascular: Denies: no symptoms, chest pain, edema, irregular heart rate, lightheadedness, palpitations, syncope, other Respiratory: Denies: no symptoms, cough, orthopnea, shortness of breath, SOB with excertion, SOB at rest, sputum, stridor, wheezing, other Gastrointestinal/Abdominal: Denies: no symptoms, abdomen distended, abdominal pain, black stools, tarry stools, blood in stool, constipated, diarrhea, difficulty swallowing, nausea, poor appetite, poor fluid intake, rectal bleeding , vomiting, other Neurologic/Psychiatric: Denies: no symptoms, anxiety, depressed, emotional problems, headache, numbness, paresthesia, pre-existing deficit, seizure, tingling, tremors, weakness, other Allergies: Coded Allergies: No Known Allergies (Unverified , 09/29/17) Subjective 07/04: remains in the icu, labs have been reviewed, wbc has improved, on abx 07/05: in am transferred to [facility], on bipap prn and peg feeds 07/06: no events to report, currently downgraded, no f/c, no night sweats, peg tube+ 07/07: no events noted, hgb better as is inr, on ra, seen by pulm, notes reviewed Objective Last 24 Hour Vital Signs Date Time Temp Pulse Resp B/P (MAP) Pulse Ox O2 Delivery O2 Flow Rate FiO2 07/07/18 12:55 99 18 98 Room Air 07/07/18 12:45 102 16 97 Room Air 21 07/07/18 12:45 21 07/07/18 12:00 98.1 107 30 124/65 (84) 94 07/07/18 12:00 104 07/07/18 12:00 Room Air 07/07/18 08:00 Room Air 07/07/18 08:00 108 07/07/18 08:00 98.0 110 29 130/85 (100) 94 07/07/18 07:23 92 18 99 Room Air 21 07/07/18 07:14 21 07/07/18 07:14 97 Room Air 21 07/07/18 07:14 99 16 97 Room Air 21 07/07/18 07:14 Room Air 21 07/07/18 04:00 Room Air 07/07/18 04:00 97.5 92 40 127/79 (95) 96 07/07/18 03:00 100 07/07/18 01:33 97 18 97 Room Air 21 07/07/18 01:22 94 18 95 Room Air 21 07/07/18 00:48 97 07/07/18 00:00 97.2 94 36 115/66 (82) 99 07/07/18 00:00 Room Air 07/06/18 20:00 97.5 100 28 132/71 (91) 93 07/06/18 20:00 Room Air 07/06/18 19:46 98 18 99 Room Air 07/06/18 19:45 Room Air 21 07/06/18 19:45 96 Room Air 21 07/06/18 19:44 96 18 Room Air 07/06/18 19:35 96 18 97 Room Air 07/06/18 19:06 99 07/06/18 16:00 98.0 103 29 130/85 (100) 96 07/06/18 16:00 103 07/06/18 16:00 Room Air 07/06/18 13:26 95 18 99 Room Air Intake and Output 07/06/18 07/07/18 19:00 07:00 Intake Total 2639.000 ml 2450.30 ml Output Total 1150 ml 1000 ml Balance 1489.000 ml 1450.30 ml Free Water 200 ml 200 ml IV Total 1809.000 ml 1590.30 ml Tube Feeding 630 ml 660 ml Output Urine Total 1150 ml 1000 ml # Bowel Movements 2 1 Laboratory Tests 07/06/18 17:05: Stool Occult Blood Negative 07/07/18 04:00: Sodium Level 147H, Potassium Level 2.7*L, Chloride Level 115H, Carbon Dioxide Level 25, Anion Gap 6, Blood Urea Nitrogen 7, Creatinine 0.5L, Estimat Glomerular Filtration Rate > 60, Glucose Level 107H, Calcium Level 6.0#L, Vancomycin Level Trough 10.2 07/07/18 05:30: White Blood Count 8.0, Red Blood Count 3.59L, Hemoglobin 8.4L, Hematocrit 26.8L , Mean Corpuscular Volume 75L, Mean Corpuscular Hemoglobin 23.3L, Mean Corpuscular Hemoglobin Concent 31.2L, Red Cell Distribution Width 18.0H, Platelet Count 318, Mean Platelet Volume 7.5, Neutrophils (%) (Auto) 70.4, Lymphocytes (%) (Auto) 20.8, Monocytes (%) (Auto) 4.9, Eosinophils (%) (Auto) 3.0, Basophils (%) (Auto) 0.9 Height (Feet): 5 Height (Inches): 8.00 Weight (Pounds): 179 Objective PE General Appearance: lethargic, Chronically Ill Neck: limited range of motion, other - old tracheostomy Respiratory: no respiratory distress, rhonchi Cardiovascular: normal peripheral pulses Gastrointestinal: soft + peg Musculoskeletal: decreased range of motion Neurologic: motor weakness, other - somnolent Skin: other - large sacral decubitus ulcer Huey Garcia MD July 07, 2018 13:24
--- NOTE | 2018-07-07 14:21 | Cardiology Report ---
APPROVED REPORT EXAM: Two-dimensional and M-mode echocardiogram with Doppler and color Doppler. INDICATION CVA M-Mode DIMENSIONS IVSd1.2 (0.7-1.1cm)Left Atrium (MM)4.4 (1.6-4.0cm) LVDd4.6 (3.5-5.6cm)Aortic Root3.5 (2.0-3.7cm) PWd0.9 (0.7-1.1cm)Aortic Cusp Exc.1.5 (1.5-2.0cm) IVSs2.0 cm LVDs3.0 (2.5-4.0cm) PWs0.9 cm Other Information Quality : Poor ventilator . Normal left ventricular chamber size, systolic function and wall motion to extend visualzed . This study pre-cludes analysis of segmental LV wall motion. Left ventricular ejection fraction estimated to be 55-60%. No evidence of left ventricular hypertrophy . Anterior Echo-free space, may be due to pericardial fat or effusion. All other cardiac chamber sizes are within normal limits. Aortic valve calcification with normal cusp excursion . Mildly thickened mitral valve leaflets with normal excursion. Mild mitral annulus and aortic root calcification. Pulmonic valve not well visualized. IVC at 1.2cm with physiologic collapse . A color flow and spectral Doppler study was performed and revealed: No aortic insufficiency . Mitral inflow velocities indicates possible pseudo normalization pattern implying moderately elevated left atrial pressure (Grade II ) Trace mitral regurgitation. Trace tricuspid regurgitation. Tricuspid systolic velocities suggests peak right ventricular systolic pressure of 11 mmHg.
--- NOTE | 2018-07-07 14:30 | Infectious Diseases Prog Note ---
Assessment/Plan Assessment/Plan ASSESSMENT AND PLAN: 1. providencia/klebsiella uti/pyelonephritis, providencia/proteus bacteremia, sepsis, shock, leukocytosis, fevers, sacral wound is clean ? 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 Alejo 2. Acute kidney injury with elevated creatinine. 3. Anemia. 4. Diabetes. 5. Hypertension. 6. Hyperlipidemia. 7. Blood sugar and blood pressure treatment primary for diabetes and hypertension. 8. CVA. 9. TIA. 10. Weakness. 11. Skin care protocol. 12. Gastroesophageal reflux disease. 13. Quadriplegia. 14. Dysphagia. 15. Dyslipidemia. 16. No known allergies. 17. Social history is negative. 18. Family history is noncontributory. 19. MAR was noted. 20. Case was discussed with RN. 21. Past medical history is noted. 22. Continue treatment per primary consultants. Subjective Constitutional: Denies: fever HEENT: Denies: congestion Respiratory: Denies: shortness of breath Cardiovascular: Denies: chest pain Gastrointestinal/Abdominal: Denies: nausea, vomiting, diarrhea Genitourinary: Reports: other - + condom cath Neurologic: Denies: headache Psychiatric: Denies: depression Skin: Denies: rash Hematologic: Denies: bleeding Musculoskeletal: Denies: pain Allergies: Coded Allergies: No Known Allergies (Unverified , 09/29/17) Objective Vital Signs Last 24 Hour Vital Signs Date Time Temp Pulse Resp B/P (MAP) Pulse Ox O2 Delivery O2 Flow Rate FiO2 07/07/18 12:55 99 18 98 Room Air 21 07/07/18 12:45 102 16 97 Room Air 21 07/07/18 12:45 21 07/07/18 12:00 98.1 107 30 124/65 (84) 94 07/07/18 12:00 104 07/07/18 12:00 Room Air 07/07/18 08:00 Room Air 07/07/18 08:00 108 07/07/18 08:00 98.0 110 29 130/85 (100) 94 07/07/18 07:23 92 18 99 Room Air 21 07/07/18 07:14 21 07/07/18 07:14 97 Room Air 07/07/18 07:14 99 16 97 Room Air 07/07/18 07:14 Room Air 21 07/07/18 04:00 Room Air 07/07/18 04:00 97.5 92 40 127/79 (95) 96 07/07/18 03:00 100 07/07/18 01:33 97 18 97 Room Air 21 07/07/18 01:22 94 18 95 Room Air 07/07/18 00:48 97 07/07/18 00:00 97.2 94 36 115/66 (82) 99 07/07/18 00:00 Room Air 07/06/18 20:00 97.5 100 28 132/71 (91) 93 07/06/18 20:00 Room Air 07/06/18 19:46 98 18 99 Room Air 21 07/06/18 19:45 Room Air 21 07/06/18 19:45 96 Room Air 21 07/06/18 19:44 96 18 Room Air 07/06/18 19:35 96 18 97 Room Air 21 07/06/18 19:06 99 07/06/18 16:00 98.0 103 29 130/85 (100) 96 07/06/18 16:00 103 07/06/18 16:00 Room Air Height (Feet): 5 Height (Inches): 8.00 Weight (Pounds): 179 General Appearance: no acute distress HEENT: normocephalic, atraumatic, anicteric, mucous membranes moist Respiratory/Chest: crackles/rales, rhonchi - bilaterally Cardiovascular: normal rate, regular rhythm, no gallop/murmur, no JVD Abdomen: normal bowel sounds, soft, non tender, no organomegaly, non distended Genitourinary: other - + condom catheter - urine clear Extremities: no cyanosis Skin: no rash 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 The lungs and pleural spaces are otherwise clear. The heart size is normal. Impression: Left lateral basilar atelectasis No acute process otherwise CT chest - IMPRESSION: Terminal ileitis with the moderate wall thickening noted. Nature of this is not known and could be infectious, ischemic or due to inflammatory bowel disease. Correlate clinically. Grade 4 decubitus ulcer with erosion osteomyelitis of the lower sacrum and coccyx. No abscess identified. Anasarca Trace free fluid in the abdomen Gastrostomy Trace basilar effusions and atelectasis versus infiltrate. Trace pericardial effusion Left inguinal hernia containing fat. Chest x-ray - 07/06/18 - worsening pulmonary edema Microbiology Date/Time Source Procedure Growth Status 07/03/18 16:00 Blood Blood Culture - Preliminary NO GROWTH AFTER 24 HOURS Resulted 07/04/18 13:00 Sputum Induced Gram Stain - Final Resulted 07/04/18 13:00 Sputum Culture - Preliminary Gram Negative Bacillus 1 Resulted 07/01/18 11:00 Urine,Clean Catch Urine Culture - Final Providencia Stuartii K.pneumoniae Carbapenem Resist Complete 07/02/18 17:00 Rectum - Final NO CARBAPENEM-RESISTANT ENTEROBACTERI... Complete Laboratory Tests Test 07/06/18 17:05 07/07/18 04:00 07/07/18 05:30 Stool Occult Blood Negative (NEGATIVE) Sodium Level 147 MMOL/L (136-145) H Potassium Level 2.7 MMOL/L (3.5-5.1) *L Chloride Level 115 MMOL/L (98-107) H Carbon Dioxide Level 25 MMOL/L (21-32) Anion Gap 6 mmol/L (5-15) Blood Urea Nitrogen 7 mg/dL (7-18) Creatinine 0.5 MG/DL (0.55-1.30) L Estimat Glomerular Filtration Rate > 60 mL/min (>60) Glucose Level 107 MG/DL (74-106) H Calcium Level 6.0 MG/DL (8.5-10.1) #L Vancomycin Level Trough 10.2 ug/mL (5.0-12.0) White Blood Count 8.0 K/UL (4.8-10.8) Red Blood Count 3.59 M/UL (4.70-6.10) L Hemoglobin 8.4 G/DL (14.2-18.0) L Hematocrit 26.8 % (42.0-52.0) L Mean Corpuscular Volume 75 FL (80-99) L Mean Corpuscular Hemoglobin 23.3 PG (27.0-31.0) L Mean Corpuscular Hemoglobin Concent 31.2 G/DL (32.0-36.0) L Red Cell Distribution Width 18.0 % (11.6-14.8) H Platelet Count 318 K/UL (150-450) Mean Platelet Volume 7.5 FL (6.5-10.1) Neutrophils (%) (Auto) 70.4 % (45.0-75.0) Lymphocytes (%) (Auto) 20.8 % (20.0-45.0) Monocytes (%) (Auto) 4.9 % (1.0-10.0) Eosinophils (%) (Auto) 3.0 % (0.0-3.0) Basophils (%) (Auto) 0.9 % (0.0-2.0) Current Medications Medications (Trade) Dose Ordered Sig/Patience Route PRN Reason Start Time Stop Time Status Last Admin Dose Admin Acetaminophen (Tylenol) 650 mg Q4H PRN RECTAL FEVER 07/05/18 14:07 08/04/18 14:06 Albuterol/ Ipratropium (Albuterol/ Ipratropium) 3 ml Q6H PRN HHN Shortness of Breath 07/05/18 17:15 07/10/18 17:14 Albuterol/ Ipratropium (Albuterol/ Ipratropium) 3 ml Q6HRT HHN 07/06/18 13:00 07/11/18 12:59 07/07/18 12:45 Amikacin Protocol (Amikacin pharmacy to dose) 1 ea DAILY PRN MISC Per rx protocol 07/06/18 09:00 08/01/18 08:14 Amikacin Sulfate 1000 mg/Sodium Chloride 114 ml @ 228 mls/hr Q24H IV 07/06/18 11:00 07/10/18 10:59 07/07/18 10:21 Ascorbic Acid (Vitamin C) 250 mg TWICE A DAY GT 07/06/18 18:00 08/05/18 17:59 07/07/18 08:08 Atorvastatin Calcium (Lipitor) 40 mg BEDTIME ORAL 07/06/18 21:00 08/05/18 20:59 07/06/18 21:00 Chlorhexidine Gluconate (Cristine-Hex 2%) 1 applic DAILY@2000 TOPIC 07/05/18 20:00 07/31/18 19:59 07/06/18 20:10 Dextrose (Dextrose 50%) 25 ml Q30M PRN IV Hypoglycemia 07/05/18 14:15 08/01/18 10:44 Dextrose (Dextrose 50%) 50 ml Q30M PRN IV Hypoglycemia 07/05/18 14:15 08/01/18 10:44 Furosemide (Lasix) 20 mg ONCE IV 07/07/18 13:15 07/07/18 14:30 07/07/18 13:25 Heparin Sodium (Porcine) (Heparin 5000 units/ml) 5,000 units EVERY 12 HOURS SUBQ 07/06/18 09:00 08/05/18 08:59 07/07/18 08:10 Insulin Aspart (NovoLOG) Q6HR SUBQ 07/05/18 18:00 08/02/18 12:59 07/07/18 12:17 Ondansetron HCl (Zofran) 4 mg Q6H PRN IVP Nausea & Vomiting 07/05/18 14:08 08/04/18 14:07 Piperacillin Sod/ Tazobactam Sod 3.375 gm/Sodium Chloride 110 ml @ 27.5 mls/hr EVERY 8 HOURS IVPB 07/05/18 14:10 07/12/18 14:09 07/07/18 13:40 Sodium Chloride 1,000 ml @ 100 mls/hr Q10H IVLG 07/05/18 14:07 08/04/18 14:06 07/07/18 06:14 Vancomycin HCl (Vanco rx to dose) 1 ea DAILY PRN MISC Per rx protocol 07/05/18 16:00 08/04/18 15:59 Vancomycin HCl 1.5 gm/Dextrose 275 ml @ 137.5 mls/ hr Q12H IVPB 07/07/18 06:00 07/12/18 05:59 07/07/18 05:59 Zinc Sulfate (Zinc Sulfate) 220 mg DAILY GT 07/07/18 09:00 07/17/18 08:59 07/07/18 08:08 Gwendolyn Marquez MD July 07, 2018 14:30
--- NOTE | 2018-07-07 15:33 | Surgery Progress Note ---
Surgery Progress Note Subjective Symptoms: improved Additional Comments CT noted. exam unchanged. doing well. labs improved. Objective Last 24 Hour Vital Signs Date Time Temp Pulse Resp B/P (MAP) Pulse Ox O2 Delivery O2 Flow Rate FiO2 07/07/18 12:55 99 18 98 Room Air 21 07/07/18 12:45 102 16 97 Room Air 21 07/07/18 12:45 21 07/07/18 12:00 98.1 107 30 124/65 (84) 94 07/07/18 12:00 104 07/07/18 12:00 Room Air 07/07/18 08:00 Room Air 07/07/18 08:00 108 07/07/18 08:00 98.0 110 29 130/85 (100) 94 07/07/18 07:23 92 18 99 Room Air 07/07/18 07:14 21 07/07/18 07:14 97 Room Air 07/07/18 07:14 99 16 97 Room Air 07/07/18 07:14 Room Air 07/07/18 04:00 Room Air 07/07/18 04:00 97.5 92 40 127/79 (95) 96 07/07/18 03:00 100 07/07/18 01:33 97 18 97 Room Air 07/07/18 01:22 94 18 95 Room Air 07/07/18 00:48 97 07/07/18 00:00 97.2 94 36 115/66 (82) 99 07/07/18 00:00 Room Air 07/06/18 20:00 97.5 100 28 132/71 (91) 93 07/06/18 20:00 Room Air 07/06/18 19:46 98 18 99 Room Air 21 07/06/18 19:45 Room Air 21 07/06/18 19:45 96 Room Air 21 07/06/18 19:44 96 18 Room Air 21 07/06/18 19:35 96 18 97 Room Air 21 07/06/18 19:06 99 07/06/18 16:00 98.0 103 29 130/85 (100) 96 07/06/18 16:00 103 07/06/18 16:00 Room Air I&O Intake and Output 07/06/18 07/07/18 19:00 07:00 Intake Total 2639.000 ml 2450.30 ml Output Total 1150 ml 1000 ml Balance 1489.000 ml 1450.30 ml Free Water 200 ml 200 ml IV Total 1809.000 ml 1590.30 ml Tube Feeding 630 ml 660 ml Output Urine Total 1150 ml 1000 ml # Bowel Movements 2 1 Dressing: saturated Wound: clean Cardiovascular: RSR Respiratory: clear Abdomen: soft, flat, non-tender, present bowel sounds Extremities: no cyanosis Laboratory Tests Test 07/06/18 17:05 07/07/18 04:00 07/07/18 05:30 Stool Occult Blood Negative (NEGATIVE) Sodium Level 147 MMOL/L (136-145) H Potassium Level 2.7 MMOL/L (3.5-5.1) *L Chloride Level 115 MMOL/L (98-107) H Carbon Dioxide Level 25 MMOL/L (21-32) Anion Gap 6 mmol/L (5-15) Blood Urea Nitrogen 7 mg/dL (7-18) Creatinine 0.5 MG/DL (0.55-1.30) L Estimat Glomerular Filtration Rate > 60 mL/min (>60) Glucose Level 107 MG/DL (74-106) H Calcium Level 6.0 MG/DL (8.5-10.1) #L Vancomycin Level Trough 10.2 ug/mL (5.0-12.0) White Blood Count 8.0 K/UL (4.8-10.8) Red Blood Count 3.59 M/UL (4.70-6.10) L Hemoglobin 8.4 G/DL (14.2-18.0) L Hematocrit 26.8 % (42.0-52.0) L Mean Corpuscular Volume 75 FL (80-99) L Mean Corpuscular Hemoglobin 23.3 PG (27.0-31.0) L Mean Corpuscular Hemoglobin Concent 31.2 G/DL (32.0-36.0) L Red Cell Distribution Width 18.0 % (11.6-14.8) H Platelet Count 318 K/UL (150-450) Mean Platelet Volume 7.5 FL (6.5-10.1) Neutrophils (%) (Auto) 70.4 % (45.0-75.0) Lymphocytes (%) (Auto) 20.8 % (20.0-45.0) Monocytes (%) (Auto) 4.9 % (1.0-10.0) Eosinophils (%) (Auto) 3.0 % (0.0-3.0) Basophils (%) (Auto) 0.9 % (0.0-2.0) Plan Problems: (1) Non-STEMI (non-ST elevated myocardial infarction) (2) Fever (3) Sacral decubitus ulcer Assessment & Plan: Pt presented on admission with multiple pressure injuries.Full thickness sacral pressure injury with undermining. Base of wound is beefy red. Bone is palpable.Borders red and flat. Darker skin tone periwound without erythema or induration. (L)8cm x (W)7.5cm x(D)3cm ,Undermining 7-5 by 5.5cm@ 8 o'clock. No odor noted .Small amt serous exudate noted. Partially opened DTPI L ischium.Base of wound dark brown. Areas that are fluctuant, with scattered openings that are viable within base of wound.Periwound without erythema or induration. (L)7.5cm x (W)4.2cmPartial thickness pressure injury noted to posterior Upper L thigh (L)0.6cm x (W) 0.5cm.Base of wound is moist -viable.No odor or exudate noted. Dry peeling skin without erythema periwound. Partially opened DTPI lateral L Tibia. Base of wound with 40% pink granulation otherwise with 60% soft urbina slough. Small amt non-odorous exudate noted. (L) 4.3cm x (W)4.2cm. L heel pressure injury with 80% mixed dry eschar and slough,20% pink granulation. No odor or exudate noted.Periwound is fluctuant but blanchable. Dark skin tone without induration or fluctuance noted to R ischium. Scattered partial thickness openings within affected area of discoloration.Full thickness pressure injury Lateral R malleolus. Base of wound erythematous with trace amt Biofilm.Small amt non-odorous serous exudate noted.Erythema noted along borders and periwound.No odor noted.(L)1cm x (W)1.2cm. Blood filled blister noted to lateral R heel. Base of wound is purple and fluctuant. Non-blanchable erythema with fluctuance noted periwound. (L)(L)2cm x (W)2.5cm. Tx.Plan: Cleanse sacral wound with Saline. Loosely pack with Hydrogel impregnated kerlix.Apply Triad paste periwound. Cover with Optifoam drsg. Change Daily and PRN. Cleanse L Ischium with Saline. Apply Triad Paste. Cover with Optifoam drsg. Change every 3 days and prn. Cleanse lateral tibia with Saline. Apply Therahoney. Cavilon Skin Barrier Periwound. Cover with Optifoam drsg. Change every 3 days and prn. Cleanse L heel with Saline. Apply Therahoney. Apply Cavilon Skin Barrier periwound. Cover with Optifoam drsg. Change every 3 days and prn. Apply Triad Paste to R ischium . Cover with Optifoam drsg. Change every 3 days and prn. Cleanse R lateral Malleolus with Saline. Apply Therahoney. Apply Cavilon Periwound. Cover with Optifoam drsg Change every 3 days and prn. Apply Cavilon Skin Barrier to R heel . Cover with Optifoam drsg. Change every 7 days and prn. APM/SELENA Mattress overlay. Reposition at least every 2hours or as tolerated. 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 2) Swallowing difficulty r/t dysphagia and h/o CVA as evidenced by pt is PEG dep. CURRENT TF:NPO ENTERAL NUTRITION RECOMMENDATIONS: Glucerna 1.5 @55ml/hr x24 hrs + Prosource 1pkt daily to provide 1320ml, 1980 kcal, 109g +11g prot, 1002ml free H2O - With HEMODYNAMIC STABILTY and as medically appropriate , start glucerna 1.5 @ 25ml/hr, advance as tolerated 10ml/hr q 4-6 hrs to goal - Add Prosource 1pkt QD to meet protein needs - Flush per MD. HOB over 30 degrees WITHOUT HEMODYNAMIC STABILITY, rec trophic feeding of Glucerna 1.5 @ 15ml/hr x 24 hrs ADDITIONAL RECOMMENDATIONS: 1) Wound care: add Vit C 500mg QD, Rafael 1pkt BID : TF @ goal will provide 100% RDI 2) Per SNF, pt's HT=5'10", WB=[id number] (obtained 06/12/18) 3) Re-calibrated bedscale wt, weekly wt monitoring 4) Monitor HD stability 5) Monitor lytes, replete as needed (low mag) (5) Acute encephalopathy (6) Septic shock (7) Leukocytosis (8) Acute kidney injury Tonio Raza July 07, 2018 15:33
[2018-07-07 16:00] VITALS: BP 122/75
--- NOTE | 2018-07-07 16:06 | NUR ---
NURSE NOTES: Called and left message to Dr. Alejo regarding episode of trigeminal PVCs. Awaiting for call back.
--- NOTE | 2018-07-07 18:33 | NUR ---
NURSE NOTES: Called and informed Dr. Ponce regarding episode of trigeminy PVCs with no new order at this time.
--- NOTE | 2018-07-07 19:20 | NUR ---
NURSE NOTES: Received report from Rafa Ruiz RN and Tere Nath RN. Patient is awake in bed, non-verbal, but able to follow commands. Sinus tach on cardiac rehabilitation specialist. No s/s of acute distress noted at this time. Saturating well on room air. Receiving Glucerna 1.5 @ 55 cc/hr via GT, tolerating well. Condom catheter intact and draining well to gravity. Right upper arm PICC, intact and patent, running NS @ 100 cc/hr. Bed locked in lowest position with side rails up x3. Call light left within reach. Will continue to monitor.
--- NOTE | 2018-07-07 19:20 | NUR ---
HAND-OFF: Report given to MARIA ELENA Segundo. Stable condition.
[2018-07-07 20:00] VITALS: BP 128/77
[2018-07-07] MEDS: Atorvastatin 20mg tab ORAL SCH (20:30)
[2018-07-07] MEDS: Dyna-Hex 2% Top Sol 2oz TOPIC SCH (20:30)
[2018-07-08] VITALS: BP 133/74
[2018-07-08] MEDS: NovoLOG Insulin Flexpen SUBQ SCH ×3 (00:10→11:39)
[2018-07-08] MEDS: Albuterol/Ipratropium 3ml neb HHN SCH ×3 (01:19→12:36)
[2018-07-08 04:00] VITALS: BP 120/76
--- NOTE | 2018-07-08 04:17 | Neurology Progress Note ---
Interim History Interim History ROS Limited/Unobtainable: Yes Complaints: Acute CVA Events: On room air- following midline commands Interim History This visit was conducted on July 07, 2018 under the supervision of Dr. Amish Chery. Review of Systems Neuro Review of Systems Still nonverbal but briskly alert and following commands. All Systems: reviewed and negative except above Objective Physical Exam Last Vital Signs Date Time Temp Pulse Resp B/P (MAP) Pulse Ox O2 Delivery O2 Flow Rate FiO2 07/08/18 01:19 98 18 97 Room Air 21 07/08/18 00:00 98.3 133/74 (93) 07/05/18 19:00 2.0 Laboratory Tests Test 07/07/18 05:30 White Blood Count 8.0 K/UL (4.8-10.8) Red Blood Count 3.59 M/UL (4.70-6.10) L Hemoglobin 8.4 G/DL (14.2-18.0) L Hematocrit 26.8 % (42.0-52.0) L Mean Corpuscular Volume 75 FL (80-99) L Mean Corpuscular Hemoglobin 23.3 PG (27.0-31.0) L Mean Corpuscular Hemoglobin Concent 31.2 G/DL (32.0-36.0) L Red Cell Distribution Width 18.0 % (11.6-14.8) H Platelet Count 318 K/UL (150-450) Mean Platelet Volume 7.5 FL (6.5-10.1) Neutrophils (%) (Auto) 70.4 % (45.0-75.0) Lymphocytes (%) (Auto) 20.8 % (20.0-45.0) Monocytes (%) (Auto) 4.9 % (1.0-10.0) Eosinophils (%) (Auto) 3.0 % (0.0-3.0) Basophils (%) (Auto) 0.9 % (0.0-2.0) General: other - More Alert today on exam Head: other Neurologic Exam Mental Status: other Speech: other Language: other Cranial Nerve II: other Cranial Nerves III, IV, : other Cranial Nerve V: other Cranial Nerve VII: other Cranial Nerve VIII: other Cranial Nerve IX: other Cranial Nerve XI: other Cranial Nerve XII: other Motor System: other Sensory: other Coordination: other Objective He is on room air now and following midline and LUE commands. His RUE has no movement, and there is very minimal movement in LEs. Appears he is back to his baseline. He is still nonverbal. Pupils PERRL. functional quadriplegia Impression/Recommendations Problems: (1) Acute encephalopathy (2) Sepsis (3) Non-STEMI (non-ST elevated myocardial infarction) (4) Fever (5) Leukocytosis (6) Acute CVA (cerebrovascular accident) Assessment & Plan: Atorvastatin 40mg Continue ASA 81mg Consider MRI Brain for better characterization of stroke SBP< 140 Check Lipids Check HgBA1c Maintain normoglycemia with ISS (7) Hypocalcemia (8) Hypokalemia Status: doing well, stable, progressing Recommendations Frequently reorient patient Avoid benzodiazapenes, anticholinergics and opioid narcotics OOB as able with PT - or in chair Maintain normothermia Maintain normoglycemia with ISS Continue Q 4 hour obs Correct/ Replete Lytes as needed Katlin Stokes N.P. July 08, 2018 04:17
--- NOTE | 2018-07-08 04:18 | Neurology Progress Note ---
Interim History Interim History ROS Limited/Unobtainable: Yes Complaints: Acute CVA Events: On room air- following midline commands Interim History This visit was conducted on July 08, 2018. Review of Systems All Systems: reviewed and negative except above Objective Physical Exam Last Vital Signs Date Time Temp Pulse Resp B/P (MAP) Pulse Ox O2 Delivery O2 Flow Rate FiO2 07/08/18 01:19 98 18 97 Room Air 21 07/08/18 00:00 98.3 133/74 (93) 07/05/18 19:00 2.0 Laboratory Tests Test 07/07/18 05:30 White Blood Count 8.0 K/UL (4.8-10.8) Red Blood Count 3.59 M/UL (4.70-6.10) L Hemoglobin 8.4 G/DL (14.2-18.0) L Hematocrit 26.8 % (42.0-52.0) L Mean Corpuscular Volume 75 FL (80-99) L Mean Corpuscular Hemoglobin 23.3 PG (27.0-31.0) L Mean Corpuscular Hemoglobin Concent 31.2 G/DL (32.0-36.0) L Red Cell Distribution Width 18.0 % (11.6-14.8) H Platelet Count 318 K/UL (150-450) Mean Platelet Volume 7.5 FL (6.5-10.1) Neutrophils (%) (Auto) 70.4 % (45.0-75.0) Lymphocytes (%) (Auto) 20.8 % (20.0-45.0) Monocytes (%) (Auto) 4.9 % (1.0-10.0) Eosinophils (%) (Auto) 3.0 % (0.0-3.0) Basophils (%) (Auto) 0.9 % (0.0-2.0) General: other - More Alert today on exam Head: other Neurologic Exam Mental Status: other Speech: other Language: other Cranial Nerve II: other Cranial Nerves III, IV, : other Cranial Nerve V: other Cranial Nerve VII: other Cranial Nerve VIII: other Cranial Nerve IX: other Cranial Nerve XI: other Cranial Nerve XII: other Motor System: other Sensory: other Coordination: other Objective He is on room air now and following midline and LUE commands. His RUE has no movement, and there is very minimal movement in LEs. Appears he is back to his baseline. He is still nonverbal. Pupils PERRL. functional quadriplegia Impression/Recommendations Problems: (1) Acute encephalopathy (2) Sepsis (3) Non-STEMI (non-ST elevated myocardial infarction) (4) Fever (5) Leukocytosis (6) Acute CVA (cerebrovascular accident) Assessment & Plan: Atorvastatin 40mg Continue ASA 81mg Consider MRI Brain for better characterization of stroke SBP< 140 Check Lipids Check HgBA1c Maintain normoglycemia with ISS (7) Hypocalcemia (8) Hypokalemia Status: doing well, stable, progressing Recommendations No changes to plan today. Frequently reorient patient Avoid benzodiazapenes, anticholinergics and opioid narcotics OOB as able with PT - or in chair Maintain normothermia Maintain normoglycemia with ISS Continue Q 4 hour obs Correct/ Replete Lytes as needed Katlin Stokes N.P. July 08, 2018 04:18
[2018-07-08 05:00] LABS: BASOPHILS % (AUTO) 1.1 % (0.0-2.0); EOSINOPHILS % (AUTO) 5.4 % (0.0-3.0); HEMATOCRIT 27.6 % (42.0-52.0); HEMOGLOBIN 8.6 G/DL (14.2-18.0); LYMPHOCYTES % (AUTO) 24.6 % (20.0-45.0); MEAN CORPUSCULAR VOLUME 75 FL (80-99); MONOCYTES % (AUTO) 6.6 % (1.0-10.0); NEUTROPHILS % (AUTO) 62.2 % (45.0-75.0); PLATELET COUNT 393 K/UL (150-450); RED CELL DISTRIBUTION WIDTH 17.7 % (11.6-14.8); WHITE BLOOD COUNT 6.3 K/UL (4.8-10.8)
[2018-07-08 05:21] LABS: ANION GAP 5 mmol/L (5-15); BLOOD UREA NITROGEN 10 mg/dL (7-18); CALCIUM 7.9 MG/DL (8.5-10.1); CARBON DIOXIDE 31 MMOL/L (21-32); CHLORIDE 104 MMOL/L (98-107); CREATININE 0.7 MG/DL (0.55-1.30); POTASSIUM 3.5 MMOL/L (3.5-5.1); SODIUM 140 MMOL/L (136-145)
[2018-07-08] MEDS: Piperacillin/Tazobactam 3.375 GM in NS 110 ML IVPB SCH ×2 (06:00→14:00)
[2018-07-08] MEDS: Vancomycin 1.5gm/D5W 275ml IVPB SCH ×2 (06:00)
--- NOTE | 2018-07-08 07:15 | NUR ---
HAND-OFF: Report given to Karine Maloney RN.
--- NOTE | 2018-07-08 07:20 | NUR ---
NURSE NOTES: Report received from Kayla Lazar RN.Pt resting in bed awake,alert but non verbal,follows command,noted no resp distress on RA,no signs of pain or discomfort,Stach on the monitor,GTF Glucerna 1.5 at 55 ml/hr,no residual noted,condom cath in placed,draining yellow urine,IV site to DONTRELL PICC line intact with IVF NS at 100 ml/hr,skin warm and dry ,SR up x2 HOB elevated bed lock in lowest position ,will continue with plans of care.
[2018-07-08 08:00] VITALS: BP 120/76
[2018-07-08] MEDS: Ascorbic Acid 500mg tab GT SCH (09:20)
[2018-07-08] MEDS: Zinc Sulfate 220mg cap GT SCH (09:20)
[2018-07-08] MEDS: Heparin 5000 units/ml inj SUBQ SCH (09:22)
--- NOTE | 2018-07-08 09:32 | NUR ---
RADIOLOGY DEPT., CHEST X-RAY DONE.-P.DYE
--- NOTE | 2018-07-08 10:10 | NUR ---
NURSE NOTES: Seen by SHEREE Richardson,wound measurement ,drsg change done.
--- NOTE | 2018-07-08 11:30 | Diagnostic Imaging Report ---
Indication: Dyspnea Comparison: 07/06/2018 A single view chest radiograph was obtained. Findings: Vascular and interstitial prominence demonstrated with cardiomegaly with a relatively unchanged. Retrocardiac opacity again noted silhouetting out the left hemidiaphragm. PICC line remains in good position. IMPRESSION: No change from the prior exam. Suspected pulmonary vascular congestion. Retrocardiac density nonspecific
[2018-07-08] MEDS: Amikacin 1,000 MG in NS 110 ML IV SCH (11:37)
--- NOTE | 2018-07-08 11:41 | NUR ---
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 2) Swallowing difficulty r/t dysphagia and h/o CVA as evidenced by pt is PEG dep. CURRENT TF:Glucerna 1.5 @55ml/hr x24 hrs + Prosource 1pkt daily ENTERAL NUTRITION RECOMMENDATIONS: Glucerna 1.5 @55ml/hr x24 hrs + Prosource 1pkt daily to provide 1320ml, 1980 kcal, 109g +11g prot, 1002ml free H2O - Maintain current TF order + Prosource 1pkt QD - Flush per MD. HOB over 30 degrees ADDITIONAL RECOMMENDATIONS: 1) Wound care: Continue Vit C, ZnSO4, and Rafael 1pkt BID : TF @ goal will provide 100% RDI 2) Per SNF, pt's HT=5'10", YF=[id number] (obtained 06/12/18) 3) Re-calibrated bedscale wt, weekly wt monitoring 4) Monitor lytes, updated as able .
--- NOTE | 2018-07-08 11:48 | NUR ---
MOLD PARTER NOTES SPOKE WITH WALDEMAR FROM [facility], PT ACCEPTED BACK TO ROOM [address] BED [address]. [facility] TO TRANSPORT PT. NCM TO CALL FOR ETA. SKILLED LEVEL OF CARE. SOLBOULDER RUBINA [phone]
--- NOTE | 2018-07-08 11:56 | NUR ---
DISCHARGE PLANNING Discharge order noted Patient has been referred to [facility] [phone] Await Acceptance and Room Number
--- NOTE | 2018-07-08 11:57 | NUR ---
DISCHARGE PLANNING DISCHARGE ORDER NOTED Patient has been accepted back to; [facility] [address] [place] [address] Bed: 111-C Skilled for Nurse to Nurse report [facility] ETA for transportation: 13:00
[2018-07-08 12:00] VITALS: BP 126/75
--- NOTE | 2018-07-08 12:08 | NUR ---
NURSE NOTES: Seen by Dr Alejo,discharge orders written.
[2018-07-08] MEDS ORDERED: ZOSYN3.375 GM IV (12:09)
[2018-07-08] MEDS ORDERED: VANCOMYCIN1 GM/200 M IV (12:09)
[2018-07-08] MEDS ORDERED: AMIKACIN S1000 MG/4 IJ (12:09)
--- NOTE | 2018-07-08 12:13 | Discharge Summary ---
Discharge Summary Hospital Course Date of Admission July 01, 2018 at 13:40 Date of Discharge 07/08 Admitting Diagnosis severe sepsis HPI Gerard Aldridge is a 62 year old male who was admitted on July 01, 2018 at 13: 40 for Severe Sepsis Hospital Course #Acute metabolic encephalopathy #Septic shock #Polymicrobial bacteremia and UTI #Acute metabolic encephalopathy #Functional quadriplegia #Sacral pressure ulcers,present on admission #Acute CVA -To continue 3 more days of Vanco,Zosyn and amikacin per ID, will be given via PICC at SNF -monitor vanco and amikacin levels -Supportive care -Fall precautions -Aspiration precautions -Seen by Surgery for sacral ulcer -Seen by Neurology for CVA #DARRIAN secondary to ATN, resolved #Hyponatremia #Hypomagnesemia #Hypokalemia -continue to monitor labs as outpatient #Hypotension #Type 2 NSTEMI from demand ischemia from septic shock -continue supportive care -Seen by Cardiology -cardiac monitoring -serial troponin #Type 2 DM -continue ISS Time spent preparing discharge was 35 minutes which included coordination with consultants, nursing and case management Discharge Discharge Disposition Patient was discharged to SNF Discharge Diagnoses: (1) Septic shock (2) Acute CVA (cerebrovascular accident) Reginald Pulido MD July 08, 2018 12:13
[2018-07-08] MEDS ORDERED: ASPIR 8181 MG ORAL (12:14)
--- NOTE | 2018-07-08 12:16 | General Progress Note ---
Assessment/Plan Status: doing well, stable, progressing Assessment/Plan: Assessment and Recs: # Leukocytosis/Elevated white blood cell count, unspecified likely related to underlying stress reaction, versus in this case septic shock REQUIRING pressors , elevated lactate likely uti v in addition sacral ulceration infection --> have reviewed peripheral smear and bandemia/neutrophilia noted, also metamyelocytes and meylocytes noted initially --> continue antibiotics if they have been started by ID team --> monitor for resolution ==> trend 29k-->43k-->13k-->7->6 # Anemia of chronic disease due to underlying chronic medical issues, multifactorial --> Anemia workup has been ordered, rule out gi bleed --> No evidence of hemolysis is noted, peripheral smear has been reviewed. --> Hgb goal >7. Transfuse prn. --> Epogen or iron at this time is not particularly indicated --> Medications have been reviewed --> evaluate with Gi team prn --> transfuse if hgb is < 7 (will trend CBC daily) --> low threshold for gi evaluation in case has occult + ==> hgb 9.8-->8.5-->8.5-->8.4-->8.6 # Coagulation defect, multifactorial usually related to poor PO intake versus medications, vesus in this case septic shock, inr is 1.3 --> administer Vitamin K if patient is bleeding or FFP if the INR is >10 --> hold off on ffp unless bleeding, consider vit K as needed --> mixing study as needed # DARRIAN secondary to ATN --> per renal # Septic shock suspected to be due to infected pressure ulcers --> on abx as per id # Gram negative bacteremia --> on abx as per ID # Acute metabolic encephalopathy # Functional quadriplegia # Sacral pressure ulcers,present on admission --> per surg # Type 2 NSTEMI from demand ischemia from septic shock --> per cards # Respiratory failure on bipap prn --> hx of old trach # DVT ppx with hep sq as long as h/h stable The timing of this note does not necessarily reflect the time of the patient was seen. Greatly appreciate consultation! Subjective Constitutional: Denies: no symptoms, chills, diaphoresis, fever, malaise, weakness, other HEENT: Denies: no symptoms, eye pain, blurred vision, tearing, double vision, ear pain, ear discharge, nose pain, nose congestion, throat pain, throat swelling, mouth pain, mouth swelling, other Respiratory: Denies: no symptoms, cough, orthopnea, shortness of breath, SOB with excertion, SOB at rest, sputum, stridor, wheezing, other Gastrointestinal/Abdominal: Denies: no symptoms, abdomen distended, abdominal pain, black stools, tarry stools, blood in stool, constipated, diarrhea, difficulty swallowing, nausea, poor appetite, poor fluid intake, rectal bleeding , vomiting, other Genitourinary: Denies: no symptoms, burning, discharge, frequency, flank pain, hematuria, incontinence, pain, urgency, other Neurologic/Psychiatric: Denies: no symptoms, anxiety, depressed, emotional problems, headache, numbness, paresthesia, pre-existing deficit, seizure, tingling, tremors, weakness, other Hematologic/Lymphatic: Denies: no symptoms, anemia, easy bleeding, easy bruising, other Allergies: Coded Allergies: No Known Allergies (Unverified , 09/29/17) Subjective 07/04: remains in the icu, labs have been reviewed, wbc has improved, on abx 07/05: in am transferred to sdu, on bipap prn and peg feeds 07/06: no events to report, currently downgraded, no f/c, no night sweats, peg tube+ 07/07: no events noted, hgb better as is inr, on ra, seen by pulm, notes reviewed 59: on gluverna, no fevers or chills, minimally verbal, but able to understand Objective Last 24 Hour Vital Signs Date Time Temp Pulse Resp B/P (MAP) Pulse Ox O2 Delivery O2 Flow Rate FiO2 07/08/18 08:00 96.0 96 22 120/76 (91) 96 07/08/18 08:00 112 07/08/18 08:00 Room Air 07/08/18 07:03 94 18 99 Room Air 21 07/08/18 06:55 Room Air 21 07/08/18 06:55 95 Room Air 21 07/08/18 06:55 99 18 93 Room Air 21 07/08/18 04:00 98.1 101 24 120/76 (91) 95 07/08/18 04:00 Room Air 07/08/18 03:42 108 07/08/18 01:19 98 18 97 Room Air 21 07/08/18 01:09 97 18 95 Room Air 21 07/08/18 00:00 98.3 101 24 133/74 (93) 94 07/08/18 00:00 Room Air 07/07/18 23:36 108 07/07/18 20:00 Room Air 07/07/18 20:00 98.0 105 24 128/77 (94) 97 07/07/18 19:59 114 18 98 Room Air 21 07/07/18 19:58 94 Room Air 21 07/07/18 19:58 Room Air 21 07/07/18 19:50 112 18 94 Room Air 21 07/07/18 19:47 106 07/07/18 16:00 Room Air 07/07/18 16:00 98.0 102 31 122/75 (91) 97 07/07/18 16:00 117 07/07/18 12:55 99 18 98 Room Air 07/07/18 12:45 102 16 97 Room Air 07/07/18 12:45 21 Intake and Output 07/07/18 07/08/18 18:59 06:59 Intake Total 2878.32 ml 2312.57758 ml Output Total 50 ml 3400 ml Balance 2828.32 ml -1087.56534 ml Free Water 260 ml 200 ml IV Total 1958.32 ml 1452.61660 ml Tube Feeding 660 ml 660 ml Output Urine Total 50 ml 3400 ml # Voids 3 # Bowel Movements 1 2 Laboratory Tests 07/08/18 03:20: White Blood Count 6.3, Red Blood Count 3.70L, Hemoglobin 8.6L, Hematocrit 27.6L , Mean Corpuscular Volume 75L, Mean Corpuscular Hemoglobin 23.3L, Mean Corpuscular Hemoglobin Concent 31.2L, Red Cell Distribution Width 17.7H, Platelet Count 393, Mean Platelet Volume 7.8, Neutrophils (%) (Auto) 62.2, Lymphocytes (%) (Auto) 24.6, Monocytes (%) (Auto) 6.6, Eosinophils (%) (Auto) 5.4H, Basophils (%) (Auto) 1.1, Sodium Level 140, Potassium Level 3.5, Chloride Level 104, Carbon Dioxide Level 31, Anion Gap 5, Blood Urea Nitrogen 10, Creatinine 0.7, Estimat Glomerular Filtration Rate > 60, Glucose Level 125H, Calcium Level 7.9#L Height (Feet): 5 Height (Inches): 8.00 Weight (Pounds): 180 Objective PE General Appearance: lethargic, Chronically Ill Neck: limited range of motion, other - old tracheostomy Respiratory: no respiratory distress, rhonchi Cardiovascular: normal peripheral pulses Gastrointestinal: soft + peg Musculoskeletal: decreased range of motion Neurologic: motor weakness, other - somnolent Skin: other - large sacral decubitus ulcer Huey Garcia MD July 08, 2018 12:16
--- NOTE | 2018-07-08 13:45 | NUR ---
NURSE NOTES: Report called out to [facility],spoke with Bere ARREDONDO,updated re pt's status,V/S,and antibiotics ,pt will keep his IV to [facility] PICC line.
[2018-07-08] MEDS ORDERED: NS 275ml ONE ×2 (14:03)
[2018-07-08] MEDS ORDERED: Tubing IV Secondary IV ONE ×2 (14:03)
--- NOTE | 2018-07-08 14:05 | NUR ---
NURSE NOTES: Pt discharged and out of the unit accompanied by ambulance personnel,awake,alert non verbal but able to follow commands.Pt to be transported to [facility]
--- NOTE | 2018-07-08 14:10 | NUR ---
*-* INSURANCE *-* UPDATED CLINICALS HAVE BEEN FAXED TO [facility]: RAINER REEVES P [phone] F [phone]
--- NOTE | 2018-07-08 14:18 | Diagnostic Imaging Report ---
APPROVED REPORT CPT Code: 88575 Vascular Symptoms CVA/TIA: Comments: Altered mental status Technically difficult study due to rapid breathing. Doppler Spectral Velocity Analysis RightLeft arteries. The Doppler spectral flow analysis indicates the degree of stenosis is mild (40%) in the common carotid artery, moderate (70-75%) in the internal carotid artery, and mild (40%) in the external carotid artery. arteries. The Doppler spectral flow analysis indicates the degree of stenosis is mild (40%) in the common carotid artery, moderate (70%) in the internal carotid artery, and mild (40%) in the external carotid artery. VERTEBRAL/SUBCLAVIAN- The vertebral and subclavian arteries are within normal limits, bilaterally.
--- NOTE | 2018-07-08 15:52 | Surgery Progress Note ---
Surgery Progress Note Subjective Additional Comments patient seen early this AM; surgeries completed; now writing note. seen and examined. wound clean and improving. okay for d/c today. recommend VAC when at long-term Objective Last 24 Hour Vital Signs Date Time Temp Pulse Resp B/P (MAP) Pulse Ox O2 Delivery O2 Flow Rate FiO2 07/08/18 12:40 87 18 99 Room Air 21 07/08/18 12:36 87 18 95 Room Air 21 07/08/18 12:00 97.3 95 22 126/75 (92) 94 07/08/18 12:00 Room Air 07/08/18 12:00 91 07/08/18 08:00 96.0 96 22 120/76 (91) 96 07/08/18 08:00 112 07/08/18 08:00 Room Air 07/08/18 07:03 94 18 99 Room Air 07/08/18 06:55 Room Air 21 07/08/18 06:55 95 Room Air 07/08/18 06:55 99 18 93 Room Air 07/08/18 04:00 98.1 101 24 120/76 (91) 95 07/08/18 04:00 Room Air 07/08/18 03:42 108 07/08/18 01:19 98 18 97 Room Air 21 07/08/18 01:09 97 18 95 Room Air 07/08/18 00:00 98.3 101 24 133/74 (93) 94 07/08/18 00:00 Room Air 07/07/18 23:36 108 07/07/18 20:00 Room Air 07/07/18 20:00 98.0 105 24 128/77 (94) 97 07/07/18 19:59 114 18 98 Room Air 21 07/07/18 19:58 94 Room Air 21 07/07/18 19:58 Room Air 21 07/07/18 19:50 112 18 94 Room Air 07/07/18 19:47 106 07/07/18 16:00 Room Air 07/07/18 16:00 98.0 102 31 122/75 (91) 97 07/07/18 16:00 117 I&O Intake and Output 07/07/18 07/08/18 18:59 06:59 Intake Total 2878.32 ml 2312.56355 ml Output Total 50 ml 3400 ml Balance 2828.32 ml -1087.45782 ml Free Water 260 ml 200 ml IV Total 1958.32 ml 1452.56805 ml Tube Feeding 660 ml 660 ml Output Urine Total 50 ml 3400 ml # Voids 3 # Bowel Movements 1 2 Dressing: dry Wound: clean Cardiovascular: RSR Respiratory: clear Abdomen: soft, present bowel sounds Extremities: no cyanosis Laboratory Tests Test 07/08/18 03:20 White Blood Count 6.3 K/UL (4.8-10.8) Red Blood Count 3.70 M/UL (4.70-6.10) L Hemoglobin 8.6 G/DL (14.2-18.0) L Hematocrit 27.6 % (42.0-52.0) L Mean Corpuscular Volume 75 FL (80-99) L Mean Corpuscular Hemoglobin 23.3 PG (27.0-31.0) L Mean Corpuscular Hemoglobin Concent 31.2 G/DL (32.0-36.0) L Red Cell Distribution Width 17.7 % (11.6-14.8) H Platelet Count 393 K/UL (150-450) Mean Platelet Volume 7.8 FL (6.5-10.1) Neutrophils (%) (Auto) 62.2 % (45.0-75.0) Lymphocytes (%) (Auto) 24.6 % (20.0-45.0) Monocytes (%) (Auto) 6.6 % (1.0-10.0) Eosinophils (%) (Auto) 5.4 % (0.0-3.0) H Basophils (%) (Auto) 1.1 % (0.0-2.0) Sodium Level 140 MMOL/L (136-145) Potassium Level 3.5 MMOL/L (3.5-5.1) Chloride Level 104 MMOL/L (98-107) Carbon Dioxide Level 31 MMOL/L (21-32) Anion Gap 5 mmol/L (5-15) Blood Urea Nitrogen 10 mg/dL (7-18) Creatinine 0.7 MG/DL (0.55-1.30) Estimat Glomerular Filtration Rate > 60 mL/min (>60) Glucose Level 125 MG/DL (74-106) H Calcium Level 7.9 MG/DL (8.5-10.1) #L Plan Problems: (1) Non-STEMI (non-ST elevated myocardial infarction) (2) Fever (3) Sacral decubitus ulcer Assessment & Plan: Pt presented on admission with multiple pressure injuries.Full thickness sacral pressure injury with undermining. Base of wound is beefy red. Bone is palpable.Borders red and flat. Darker skin tone periwound without erythema or induration. (L)8cm x (W)7.5cm x(D)3cm ,Undermining 7-5 by 5.5cm@ 8 o'clock. No odor noted .Small amt serous exudate noted. Partially opened DTPI L ischium.Base of wound dark brown. Areas that are fluctuant, with scattered openings that are viable within base of wound.Periwound without erythema or induration. (L)7.5cm x (W)4.2cmPartial thickness pressure injury noted to posterior Upper L thigh (L)0.6cm x (W) 0.5cm.Base of wound is moist -viable.No odor or exudate noted. Dry peeling skin without erythema periwound. Partially opened DTPI lateral L Tibia. Base of wound with 40% pink granulation otherwise with 60% soft urbina slough. Small amt non-odorous exudate noted. (L) 4.3cm x (W)4.2cm. L heel pressure injury with 80% mixed dry eschar and slough,20% pink granulation. No odor or exudate noted.Periwound is fluctuant but blanchable. Dark skin tone without induration or fluctuance noted to R ischium. Scattered partial thickness openings within affected area of discoloration.Full thickness pressure injury Lateral R malleolus. Base of wound erythematous with trace amt Biofilm.Small amt non-odorous serous exudate noted.Erythema noted along borders and periwound.No odor noted.(L)1cm x (W)1.2cm. Blood filled blister noted to lateral R heel. Base of wound is purple and fluctuant. Non-blanchable erythema with fluctuance noted periwound. (L)(L)2cm x (W)2.5cm. Tx.Plan: Cleanse sacral wound with Saline. Loosely pack with Hydrogel impregnated kerlix.Apply Triad paste periwound. Cover with Optifoam drsg. Change Daily and PRN. Cleanse L Ischium with Saline. Apply Triad Paste. Cover with Optifoam drsg. Change every 3 days and prn. Cleanse lateral tibia with Saline. Apply Therahoney. Cavilon Skin Barrier Periwound. Cover with Optifoam drsg. Change every 3 days and prn. Cleanse L heel with Saline. Apply Therahoney. Apply Cavilon Skin Barrier periwound. Cover with Optifoam drsg. Change every 3 days and prn. Apply Triad Paste to R ischium . Cover with Optifoam drsg. Change every 3 days and prn. Cleanse R lateral Malleolus with Saline. Apply Therahoney. Apply Cavilon Periwound. Cover with Optifoam drsg Change every 3 days and prn. Apply Cavilon Skin Barrier to R heel . Cover with Optifoam drsg. Change every 7 days and prn. APM/SELENA Mattress overlay. Reposition at least every 2hours or as tolerated. 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 2) Swallowing difficulty r/t dysphagia and h/o CVA as evidenced by pt is PEG dep. CURRENT TF:NPO ENTERAL NUTRITION RECOMMENDATIONS: Glucerna 1.5 @55ml/hr x24 hrs + Prosource 1pkt daily to provide 1320ml, 1980 kcal, 109g +11g prot, 1002ml free H2O - With HEMODYNAMIC STABILTY and as medically appropriate , start glucerna 1.5 @ 25ml/hr, advance as tolerated 10ml/hr q 4-6 hrs to goal - Add Prosource 1pkt QD to meet protein needs - Flush per MD. HOB over 30 degrees WITHOUT HEMODYNAMIC STABILITY, rec trophic feeding of Glucerna 1.5 @ 15ml/hr x 24 hrs ADDITIONAL RECOMMENDATIONS: 1) Wound care: add Vit C 500mg QD, Rafael 1pkt BID : TF @ goal will provide 100% RDI 2) Per SNF, pt's HT=5'10", ZN=[id number] (obtained 06/12/18) 3) Re-calibrated bedscale wt, weekly wt monitoring 4) Monitor HD stability 5) Monitor lytes, replete as needed (low mag) (5) Acute encephalopathy (6) Septic shock (7) Leukocytosis (8) Acute kidney injury Tonio Raza July 08, 2018 15:52
--- NOTE | 2018-07-08 16:12 | Pulmonology Progress Note ---
Assessment/Plan Problems: (1) Sepsis (2) Sacral decubitus ulcer (3) Fever (4) Non-STEMI (non-ST elevated myocardial infarction) (5) Acute kidney injury (6) Acute encephalopathy (7) Leukocytosis Assessment/Plan ASSESSMENT: The patient is a 62-year-old male halfway resident with a history of prior CVA, nonverbal at baseline, tracheostomy in the past, G-tube dependent, presenting with altered mental status, hypotension secondary to shock and likely sepsis. I suspect a respiratory source given increased respiratory secretions and scattered bilateral infiltrates. He is saturating well, but we will check ABG to assess baseline gas exchange. He has been started on pressors and broad-spectrum antimicrobial therapy by the emergency department. PROBLEM LIST: 1. Shock/sepsis - HEMODYNAMICALLY STABLE 2. Scattered bilateral interstitial opacities, possible multilobar pneumonia. 3. Providencia UTI and sepsis 4. History of MRSA pneumonia in the past. 5. Acute kidney injury - RESOLVED 6. Lactic acidosis - RESOLVED 7. Non ST-elevation myocardial infarction/troponinemia, likely demand ischemia. 8. Protein-calorie malnutrition. 9. Leukocytosis with significant bandemia - RESOLVED 10. senior care resident. 11. 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 12. History of tracheostomy in the past. 13. Dysphagia, status post G-tube treatment 14. Terminal ileitis TREATMENT PLAN: -Optimize pulmonary hygiene -PRN O2 -Monitor prior trach site -RTC and PRN HHN's -Abx per ID -Monitor volumes and renal function -Wound care -TF's -Hep SQ -?GI eval -FC, continue to discuss GOC Subjective Allergies: Coded Allergies: No Known Allergies (Unverified , 09/29/17) Subjective Seen earlier discharged to SNF since AFVSS, on RA, secretions stable, CXR unchanged kiersten TF's Less congestion + scattered coarse sounds no distress Objective Last 24 Hour Vital Signs Date Time Temp Pulse Resp B/P (MAP) Pulse Ox O2 Delivery O2 Flow Rate FiO2 07/08/18 12:40 87 18 99 Room Air 21 07/08/18 12:36 87 18 95 Room Air 21 07/08/18 12:00 97.3 95 22 126/75 (92) 94 07/08/18 12:00 Room Air 07/08/18 12:00 91 07/08/18 08:00 96.0 96 22 120/76 (91) 96 07/08/18 08:00 112 07/08/18 08:00 Room Air 07/08/18 07:03 94 18 99 Room Air 07/08/18 06:55 Room Air 21 07/08/18 06:55 95 Room Air 07/08/18 06:55 99 18 93 Room Air 21 07/08/18 04:00 98.1 101 24 120/76 (91) 95 07/08/18 04:00 Room Air 07/08/18 03:42 108 07/08/18 01:19 98 18 97 Room Air 21 07/08/18 01:09 97 18 95 Room Air 07/08/18 00:00 98.3 101 24 133/74 (93) 94 07/08/18 00:00 Room Air 07/07/18 23:36 108 07/07/18 20:00 Room Air 07/07/18 20:00 98.0 105 24 128/77 (94) 97 07/07/18 19:59 114 18 98 Room Air 07/07/18 19:58 94 Room Air 07/07/18 19:58 Room Air 07/07/18 19:50 112 18 94 Room Air 07/07/18 19:47 106 Intake and Output 07/07/18 07/08/18 19:00 07:00 Intake Total 2759.416 ml 2289.07807 ml Output Total 50 ml 3400 ml Balance 2709.416 ml -1110.35987 ml Free Water 260 ml 200 ml IV Total 1839.416 ml 1429.89628 ml Tube Feeding 660 ml 660 ml Output Urine Total 50 ml 3400 ml # Voids 3 # Bowel Movements 1 2 General Appearance: no acute distress, cachetic HEENT: normocephalic, atraumatic, anicteric, mucous membranes moist Respiratory/Chest: rhonchi Cardiovascular: normal peripheral pulses, normal rate, regular rhythm Abdomen: normal bowel sounds, soft, non tender, no organomegaly, non distended , no mass Extremities: no cyanosis, no clubbing, no edema Laboratory Tests 07/08/18 03:20: White Blood Count 6.3, Red Blood Count 3.70L, Hemoglobin 8.6L, Hematocrit 27.6L , Mean Corpuscular Volume 75L, Mean Corpuscular Hemoglobin 23.3L, Mean Corpuscular Hemoglobin Concent 31.2L, Red Cell Distribution Width 17.7H, Platelet Count 393, Mean Platelet Volume 7.8, Neutrophils (%) (Auto) 62.2, Lymphocytes (%) (Auto) 24.6, Monocytes (%) (Auto) 6.6, Eosinophils (%) (Auto) 5.4H, Basophils (%) (Auto) 1.1, Sodium Level 140, Potassium Level 3.5, Chloride Level 104, Carbon Dioxide Level 31, Anion Gap 5, Blood Urea Nitrogen 10, Creatinine 0.7, Estimat Glomerular Filtration Rate > 60, Glucose Level 125H, Calcium Level 7.9#L Partha Murrieta MD July 08, 2018 16:12
== END 2018-07-08 14:04 | DRG 720 ==
LOC: EDBD 10:51 → EMR 11:38 → EDBEDREQ 13:36 → EDBEDREQSVC 13:36 → ICU 13:40 → EDBEDREQ 19:09 → 2W 07-05 14:08
PROC: 5A1935Z Respiratory Ventilation, Less than 24 Consecutive Hours (ICD-10-PCS; principal; 2018-07-01)
PROC: 02HV33Z Insertion of Infusion Device into Superior Vena Cava, Percutaneous Approach (ICD-10-PCS; 2018-07-01)
DX: A41.9 Sepsis, unspecified organism (principal); I21.A1 Myocardial infarction type 2; N17.0 Acute kidney failure with tubular necrosis; I63.9 Cerebral infarction, unspecified; R65.21 Severe sepsis with septic shock; L89.150 Pressure ulcer of sacral region, unstageable; G93.41 Metabolic encephalopathy; E46 Unspecified protein-calorie malnutrition; R53.2 Functional quadriplegia; Z68.25 Body mass index [BMI] 25.0-25.9, adult; N39.0 Urinary tract infection, site not specified; E87.1 Hypo-osmolality and hyponatremia; E83.42 Hypomagnesemia; E11.9 Type 2 diabetes mellitus without complications; R13.10 Dysphagia, unspecified; Z43.1 Encounter for attention to gastrostomy; Z86.73 Personal history of transient ischemic attack (TIA), and cerebral infarction without residual deficits; K52.89 Other specified noninfective gastroenteritis and colitis
CPT/HCPCS: 36415; 36569; 36600; 70450; 71045; 74176; 76937; 80048; 80053; 80076; 80150; 80202; 81003; 82270; 82550; 82553; 82607; 82728; 82803; 82962; 83010; 83540; 83550; 83605; 83615; 83735; 83880; 84100; 84443; 84484; 85007; 85025; 85044; 85060; 85384; 85610; 85730; 87040; 87070; 87081; 87086; 87181; 87205; 93005; 93306; 93880; 94640; 94660; 94664; 94760; 96361; 96365; 96367; 99291; J1815; J2405; J7620; J8499

== ENCOUNTER 2019-01-01 21:31 | Inpatient (IN) | payer OTHER ==
[~2019-01-01] VITALS: Ht 172.7 cm; Wt 78.3 kg
[~2019-01-01 21:31] MED LIST changes: +AMIKACIN S1000 MG/4 IJ; +ASPIR 8181 MG ORAL; +DUONEB 0.5-3(2.53 ML HHN; +VANCOMYCIN1 GM/200 M IV; +ZOSYN3.375 GM IV
--- NOTE | 2019-01-01 21:39 | NUR ---
ED Nurse Note: pt presents to ED via EMS arrival for AMS. pt was also tachy at 130 en route. paramedics put an IV in pt with 500 mL of NS running. pt came with a parks already inserted. he is on 6 L O2 via simple facemask. he is on 2L O2 NC at home. pt has a g tube and tracheosomy site, wounds on bilat feet and one sacral pressure ulcer. he has a h/o dysphagia, sacral pressure ulcer and DM2. per EMS, his blood sugar was 425. pt is nonverbal and awake but not oriented. his vital signs are: 107, 30, 98% on 6 L via simple facemask and 129/79.
[2019-01-01] MEDS ORDERED: Sodium Chloride 2,200 ML IVLG ONE (21:45)
--- NOTE | 2019-01-01 21:47 | Emergency Room Report ---
History of Present Illness General Chief Complaint: Altered Level of Consciousness Source: Medical Record, EMS Present Illness HPI This is an unfortunate 63-year-old male with a history of CVA, previous tracheostomy and feeding tube. He has multiple medical problems. He presents with chief complaint of altered mental status and respiratory distress. Onset today. History is from [facility]. Per EMS, he has increased respiration and was hypoxic. He was placed on oxygen and brought here. Heart rate was elevated. He is more sedated than baseline. Unable to get any other history from this patient. 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 Hx Dysphasia: Yes Review of Systems Constitutional: Reports: weakness Eye: Denies: eye pain, blurred vision ENT: Denies: ear pain, nose congestion, throat swelling Respiratory: Reports: shortness of breath; Denies: cough Cardiovascular: Denies: chest pain, palpitations Gastrointestinal: Denies: abdominal pain, diarrhea, nausea, vomiting Musculoskeletal: Denies: back pain, joint pain Skin: Denies: rash Neurological: Denies: headache, numbness Endocrine: Denies: increased thirst, increased urine Hematologic/Lymphatic: Denies: easy bruising All Other Systems: negative except mentioned in HPI Physical Exam Vital Signs Date Time Temp Pulse Resp B/P (MAP) Pulse Ox O2 Delivery O2 Flow Rate FiO2 01/01/19 21:27 99.9 140 34 119/78 (92) 96 Simple Mask 6.0 Vitals with tachycardia and fever Sp02 EP Interpretation: abnormal General Appearance: moderate distress, cachetic, Chronically Ill, Stupor Head: normocephalic, atraumatic Eyes: bilateral eye PERRL, bilateral eye EOMI ENT: dry mucus membranes Neck: no meningismus, other - Neck is chronically stiff, tracheotomy - Old tracheostomy site is clean Respiratory: chest non-tender, respiratory distress, decreased breath sounds, accessory muscle use, rhonchi Cardiovascular #1: regular rate, rhythm, no murmur, tachycardia Gastrointestinal: normal bowel sounds, non tender, no mass, no organomegaly, no bruit, non-distended, other - G-tube intact Genitourinary: other - Naik with cloudy urine Musculoskeletal: other - Contracted Psychiatric: other Skin: other - Warm to the touch Procedures Critical Care Time Critical Care Time Critical care is mandated in this patient who presented with sepsis from pneumonia and UTI. Patient require my urgent intervention to attenuate the risks of metabolic collapse which may lead to cardiovascular collapse and . Critical care time is 35 minutes excluding any reportable procedure. Critical care time included evaluation, multiple reevaluation, looking at old charts, interpreting laboratory and diagnostic data, discussing case with patient and family and consultants, and charting. Medical Decision Making Diagnostic Impression: Primary Impression: Severe sepsis Additional Impressions: HCAP (healthcare-associated pneumonia) UTI (urinary tract infection) Qualified Codes: N30.00 - Acute cystitis without hematuria DARRIAN (acute kidney injury) Hypernatremia Dehydration ER Course Patient presents with severe sepsis secondary to healthcare associated pneumonia and UTI. He grew out several multidrug-resistant gram-negative rods in the past. I gave him cefepime and Levaquin here. He is much improved after IV fluid. More awake. Blood pressure stable. Heart rate down to 100. I discussed the case with Dr. Santana who will be admitting for Dr. Lindsey. Sepsis reevaluation: Vital signs: Blood pressure stable. Heart rate 100. Oxygenation 99% on 4 L. Mental status: Improved. Cardiovascular: Regular rate and rhythm Lungs: Good air movement Abdomen: Soft Extremity: No edema Skin: No mottling Capillary refills: Less than 2 seconds EKG Diagnostic Results Rhythm: NSR ST Segments: other - NSST changes Rhythm Strip Diag. Results EP Interpretation: yes Rate: 120 Rhythm: NSR, no PVC's, no ectopy Chest X-Ray Diagnostic Results Chest X-Ray Diagnostic Results : Chest X-Ray Ordered: Yes # of Views/Limited/Complete: 1 View Indication: Shortness of Breath EP Interpretation: Yes Interpretation: no effusion, no pneumothorax, other - Right lower quadrant interstitial infiltrate Impression: Other - RLL infiltrates Electronically Signed by: Arsenio Blandon MD Last Vital Signs Date Time Temp Pulse Resp B/P (MAP) Pulse Ox O2 Delivery O2 Flow Rate FiO2 01/01/19 21:27 99.9 140 34 119/78 (92) 96 Simple Mask 6.0 Status: improved Disposition: ADMITTED INPATIENT Condition: Serious Arsenio Blandon MD Jan 01, 2019 21:47
[2019-01-01 21:50] VITALS: BP 119/78
[2019-01-01] MEDS ORDERED: Acetaminophen 650 MG SUPP RECTAL ONE (22:00)
[2019-01-01] MEDS ORDERED: Cefepime HCl 1 GM in D5W 55 ML IVPB ONE (22:45)
[2019-01-01 22:47] LABS: APPEARANCE,URINE VERY CLOUDY; BILIRUBIN, URINE NEGATIVE (NEGATIVE); GLUCOSE, URINE (UA) 4+ (NEGATIVE); KETONES,URINE 1+ (NEGATIVE); LEUKOCYTE ESTERASE ,URINE 3+ (NEGATIVE); NITRITE,URINE NEGATIVE (NEGATIVE); PH,URINE 6.5 (4.5-8.0); PROTEIN,URINE 4+ (NEGATIVE); UROBILINOGEN,URINE 1 MG/DL (0.0-1.0)
[2019-01-01 22:49] LABS: BASOPHILS % (AUTO) 1.8 % (0.0-2.0); EOSINOPHILS % (AUTO) 4.2 % (0.0-3.0); HEMATOCRIT 39.7 % (42.0-52.0); HEMOGLOBIN 12.3 G/DL (14.2-18.0); LYMPHOCYTES % (AUTO) 24.3 % (20.0-45.0); MEAN CORPUSCULAR VOLUME 87 FL (80-99); MONOCYTES % (AUTO) 3.6 % (1.0-10.0); NEUTROPHILS % (AUTO) 66.1 % (45.0-75.0); PLATELET COUNT 308 K/UL (150-450); RED BLOOD COUNT 4.58 M/UL (4.70-6.10); RED CELL DISTRIBUTION WIDTH 14.9 % (11.6-14.8); WHITE BLOOD COUNT 12.7 K/UL (4.8-10.8)
[2019-01-01 22:49] LABS: COLOR,URINE YELLOW
[2019-01-01 22:55] LABS: INR 1.1 (0.9-1.1)
[2019-01-01 22:57] VITALS: BP 129/79
[2019-01-01] MEDS ORDERED: FLEET ENEMA133 ML RECTAL (22:58)
[2019-01-01] MEDS ORDERED: COLACE100 MG GT (22:58)
[2019-01-01] MEDS ORDERED: CATAPRES0.1 MG ORAL (22:58)
[2019-01-01] MEDS ORDERED: MULTIVITAMINS1 EA13 GT (22:58)
[2019-01-01] MEDS ORDERED: MILK OF MA400 MG/51 GT (22:58)
[2019-01-01] MEDS ORDERED: ASPIR 8181 MG GT (22:58)
[2019-01-01] MEDS ORDERED: HUMALOG100 UNIT/3 SUBQ (22:58)
[2019-01-01] MEDS ORDERED: BISACODYL5 MG GT (22:58)
[2019-01-01] MEDS ORDERED: PRO-AMATINE10 MG GT (22:58)
[2019-01-01] MEDS ORDERED: DUONEB 0.5-3(2.53 ML HHN (22:58)
[2019-01-01] MEDS ORDERED: BENADRYL25 MG GT (22:58)
[2019-01-01] MEDS ORDERED: IBUPROFEN200 M2 GT (22:58)
[2019-01-01 23:12] LABS: ALANINE AMINOTRANSFERASE 34 U/L (12-78); ALBUMIN 2.4 G/DL (3.4-5.0); ALBUMIN/GLOBULIN RATIO 0.4 (1.0-2.7); ALKALINE PHOSPHATASE 106 U/L (46-116); ANION GAP 8 mmol/L (5-15); ASPARTATE AMINO TRANSFERASE 29 U/L (15-37); BILIRUBIN,TOTAL 0.3 MG/DL (0.2-1.0); BLOOD UREA NITROGEN 57 mg/dL (7-18); CALCIUM 9.5 MG/DL (8.5-10.1); CARBON DIOXIDE 36 MMOL/L (21-32); CHLORIDE 123 MMOL/L (98-107); CREATINE KINASE 92 U/L (26-308); CREATININE 1.1 MG/DL (0.55-1.30); POTASSIUM 3.3 MMOL/L (3.5-5.1)
[2019-01-01] MEDS ORDERED: EMERGEN-C 500500 MG GT (23:17)
[2019-01-01] MEDS ORDERED: SENNA8.6 M2 GT (23:17)
[2019-01-01] MEDS ORDERED: PRO-STAT LIQUID30 ML GT (23:17)
[2019-01-01] MEDS ORDERED: TYLENOL325 MG GT (23:17)
[2019-01-01] MEDS ORDERED: PROTONIX40 MG GT (23:17)
[2019-01-01] MEDS ORDERED: UTI-STAT L3875 MG/31 GT (23:17)
[2019-01-01 23:22] LABS: SODIUM 166 MMOL/L (136-145)
[2019-01-01 23:30] VITALS: BP 120/78
[2019-01-01] MEDS ORDERED: Insulin Human Regular 100units/ml 3ml IV ONE (23:45)
[2019-01-01] MEDS ORDERED: Miralax 17gm pkt ORAL PRN (23:45)
[2019-01-01] MEDS ORDERED: Morphine Sulfate 2mg/ml Inj(IV/IM USE ONLY) IVP PRN (23:45)
[2019-01-01] MEDS ORDERED: LORazepam 1mg tab ORAL PRN (23:45)
[2019-01-02] VITALS (7 sets, daily range): BP systolic 102–131; BP diastolic 69–83
[2019-01-02] MEDS ORDERED: NovoLOG Insulin Flexpen SUBQ SCH
--- NOTE | 2019-01-02 01:55 | NUR ---
ED Nurse Note: gave report to MARIA ELENA Barton
--- NOTE | 2019-01-02 02:15 | NUR ---
ED Nurse Note: pt is in no acute distress with stable vital signs. parks is draining dark yellow urine
--- NOTE | 2019-01-02 02:20 | NUR ---
NURSE NOTES: Received report from Pamela Peterson RN. regarding patients transfer to TELE floor from ED. arrived via gurney and helped transfer to bed with staff assist. Belongings checked and noted with head to toe assessment initiated. Skin issues noted with bilateral foot dried ulcer and stage 4 sacral pressure ulcer. WC consult ordered per protocol, kept affected area clean and dry. New orders received and carried out. Safety precaution in place; siderails X3 up, call light within reach, bed in lowest position, brakes and alarm on at all times. Placed on continuous cardiac monitoring per protocol. Needs and wants anticipated and attended. Will continue plan of care.
[2019-01-02] MEDS: NovoLOG Insulin Flexpen SUBQ SCH ×4 (03:26→17:45)
[2019-01-02] MEDS ORDERED: Piperacillin/Tazobactam 3.375 GM in NS 110 ML IVPB SCH (06:00)
--- NOTE | 2019-01-02 07:25 | NUR ---
HAND-OFF: Report given to Yajaira Rebolledo RN. Endorsed plan of care, patient stable in bed.
--- NOTE | 2019-01-02 07:25 | NUR ---
NURSE NOTES: Received bedside report from Mick ARREDONDO. Pt. in bed, awake, non-verbal. No sign of distress. On 2LPM via NC. No grimacing noted. HOB elevated at all times. On GTF Glucerna 1.2 @ 35cc/hr. Tolerating well. IV site at left AC #20g. in placed and right FA #20g. running at NS at 75cc/hr. Bed in low position, locked. Call light within reach. Will cont. to monitor.
--- NOTE | 2019-01-02 07:36 | History and Physical ---
History of Present Illness General Date patient seen: Jan 02, 2019 Reason for Hospitalization: Altered Level of Consciousness, Sepsis Present Illness HPI This Is a 63-year-old male with a past medical history of CVA status post trach and PEG with chronic indwelling Naik secondary to neurogenic bladder, diabetes mellitus type 2, multiple ulcers including stage IV decubitus ulcer presenting with altered mental status, respiratory distress, and tachycardia. Patient presenting from [facility]. He presents with chief complaint of altered mental status and respiratory distress. Onset today. [facility]. Per EMS, he has increased respiration and was hypoxic. He was placed on oxygen and brought here. Heart rate was elevated. He is more sedated than baseline. Unable to get any other history from this patient as patient is nonverbal. In the ER the patient had a temperature of 99.9 pulse up to 140, respirations 34 , blood pressure 119/78, saturating 96% on 6 L nasal cannula. WBCs 12.7 lactate 2, sodium up to 166 with a blood sugar of 493 correcting it to 175. Potassium 3.3, BUN 7. Troponin negative EKG showed sinus tachycardia no ST changes. UA was positive. Chest x-ray showed right lower lobe infiltrate. Patient was given IV fluids 30 cc/kg as well as Cefepime and Zosyn. The patient was admitted to telemetry Allergies: NKA Unable to obtain surgical, family, social history as patient is nonverbal and no family available Medications: Reviewed Allergies: Coded Allergies: No Known Allergies (Unverified , 09/29/17) Medication History Scheduled Amino Acids/Protein Hydrolys (Pro-Stat Liquid), 30 ML GT DAILY, (Reported) Aspirin* (Aspir 81*), 81 MG GT DAILY, (Reported) Bisacodyl* (Dulcolax*), 10 MG GT ONCE, (Reported) Clonidine Hcl* (Catapres*), 0.1 MG ORAL EVERY 6 HOURS, (Reported) Cran/Vitc/Mannose/Inulin/Brom (Uti-Stat Liquid), 3,875 MG GT EVERY 12 HOURS, ( Reported) Docusate Sodium* (Colace*), 100 MG GT DAILY, (Reported) Ibuprofen (Ibuprofen), 600 MG GT Q6H, (Reported) Magnesium Hydroxide* (Milk Of Magnesia*), 30 ML ORAL DAILY, (Reported) Magnesium Hydroxide* (Milk Of Magnesia*), 30 ML GT QHS, (Reported) Midodrine (Midodrine HCl), 10 MG GT THREE TIMES A DAY, (Reported) Multivitamin with Minerals (Multivitamins with Minerals), 1 TAB GT DAILY, ( Reported) Na Phos,M-B/Na Phos,Di-Ba* (Fleet Enema*), 133 ML RECTAL DAILY, (Reported) Pantoprazole* (Protonix*), 40 MG GT DAILY, (Reported) Sennosides (Senna), 8.6 MG GT BEDTIME, (Reported) Vit C/Ascorb Sod/Multivit-Min (Emergen-C 500 mg Chewable Tab), 500 MG GT DAILY, (Reported) Scheduled PRN Acetaminophen (Tylenol), 650 MG GT Q4HR PRN for Prn Headache/Temp > 101, ( Reported) Acetaminophen (Tylenol), 650 MG GT Q4HR PRN for Pain Scale (3-5), (Reported) Diphenhydramine Hcl* (Benadryl*), 25 MG GT Q6H PRN for Itching, (Reported) Ipratropium/Albuterol Sulfate (DuoNeb 0.5-3(2.5)mg/3ml), 3 ML HHN for Shortness of Breath, (Reported) Miscellaneous Medications Insulin Lispro (Humalog), 0 SUBQ, (Reported) Discontinued Medications Acetaminophen (Tylenol), 650 MG ORAL Q6H PRN for Prn Pain/Headache/Temp > 101, ( Reported) Discontinued Reason: MD discontinued med Amikacin Sulfate (Amikacin Sulfate), 1,000 MG IJ Q24H Discontinued Reason: discontinued med Aspirin* (Aspir 81*), 81 MG ORAL DAILY Discontinued Reason: MD discontinued med Bisacodyl (Dulcolax), 10 MG RC, (Reported) Discontinued Reason: MD discontinued med Docusate Sodium* (Colace*), 100 MG ORAL DAILY, (Reported) Discontinued Reason: MD discontinued med Ipratropium Eola (Ipratropium Eola), 15 ML NS, (Reported) Discontinued Reason: MD discontinued med Ipratropium/Albuterol Sulfate (DuoNeb 0.5-3(2.5)mg/3ml), 3 ML HHN, (Reported) Discontinued Reason: MD discontinued med Midodrine* (Proamatine*), 10 MG ORAL THREE TIMES A DAY, (Reported) Discontinued Reason: MD discontinued med Na Phos,M-B/Na Phos,Di-Ba* (Fleet Enema*), 133 ML RECTAL DAILY, (Reported) Discontinued Reason: MD discontinued med Pantoprazole* (Pantoprazole*), 40 MG ORAL DAILY, (Reported) Discontinued Reason: MD discontinued med Piperacillin/Tazobactam Sod (Zosyn 3.375 Gram Vial), 3.375 GM IV EVERY 8 HOURS Discontinued Reason: MD discontinued med Sennosides (Senna), 8.6 MG PO, (Reported) Discontinued Reason: MD discontinued med Trimethoprim/Sulfamethoxazole 160/800* (Bactrim Ds Tablet*), 2 TAB GT Q12H Discontinued Reason: MD discontinued med Vancomycin Hcl/D5w (Vancomycin Hcl 1G/200 Ml Bag), 1.5 GM IV Q12HR Discontinued Reason: MD discontinued med Zinc Sulfate (Zinc Sulfate*), 220 MG ORAL DAILY, (Reported) Discontinued Reason: MD discontinued med Patient History Healthcare decision maker Resuscitation status Advanced Directive on File Review of Systems ROS Narrative Unable to obtain review of systems as patient is altered and nonverbal Physical Exam General Appearance: WD/WN, no apparent distress, alert, mild distress, other - Nonverbal Lines, tubes and drains: peripheral HEENT: normocephalic, atraumatic, anicteric Neck: non-tender, trach Respiratory/Chest: chest wall non-tender, lungs clear, normal breath sounds, other - Mild respiratory distress Cardiovascular/Chest: normal peripheral pulses, normal rate, regular rhythm, no JVD Abdomen: normal bowel sounds, non tender, soft, feeding tube, other - G-tube in place area is clean dry and intact Extremities: normal range of motion, non-tender, normal inspection, other - No lower extremity edema bilaterally Skin Exam: normal pigmentation, warm/dry Neurologic: zinc skimmer II-XII grossly normal, no motor/sensory deficits, alert, oriented x 3, responsive, other - Nonverbal Lymphatic: anterior cervical - No lymphadenopathy Musculoskeletal: normal muscle bulk, no effusion Last 24 Hour Vital Signs Date Time Temp Pulse Resp B/P (MAP) Pulse Ox O2 Delivery O2 Flow Rate FiO2 01/02/19 04:00 97.8 103 24 131/80 (97) 100 01/02/19 02:30 98.8 103 24 107/73 (84) 97 01/02/19 01:57 98.4 103 25 114/72 94 Simple Mask 6.0 01/02/19 01:12 98.4 100 30 102/69 99 Simple Mask 6.0 01/01/19 23:30 107 30 120/78 100 Simple Mask 6.0 01/01/19 22:57 36 129/79 99 Simple Mask 6.0 01/01/19 22:35 98.4 01/01/19 21:50 99.9 34 119/78 96 Simple Mask 6.0 01/01/19 21:50 140 34 Simple Mask 6.0 01/01/19 21:27 99.9 140 34 119/78 (92) 96 Simple Mask 6.0 Intake and Output 01/01/19 01/02/19 19:00 07:00 Output Total 250 ml Balance -250 ml Output Urine Total 250 ml Laboratory Tests Test 01/01/19 21:50 01/01/19 22:27 White Blood Count 12.7 K/UL (4.8-10.8) H Red Blood Count 4.58 M/UL (4.70-6.10) L Hemoglobin 12.3 G/DL (14.2-18.0) L Hematocrit 39.7 % (42.0-52.0) L Mean Corpuscular Volume 87 FL (80-99) Mean Corpuscular Hemoglobin 26.8 PG (27.0-31.0) L Mean Corpuscular Hemoglobin Concent 30.9 G/DL (32.0-36.0) L Red Cell Distribution Width 14.9 % (11.6-14.8) H Platelet Count 308 K/UL (150-450) Mean Platelet Volume 8.9 FL (6.5-10.1) Neutrophils (%) (Auto) 66.1 % (45.0-75.0) Lymphocytes (%) (Auto) 24.3 % (20.0-45.0) Monocytes (%) (Auto) 3.6 % (1.0-10.0) Eosinophils (%) (Auto) 4.2 % (0.0-3.0) H Basophils (%) (Auto) 1.8 % (0.0-2.0) Prothrombin Time 11.4 SEC (9.30-11.50) Prothromb Time International Ratio 1.1 (0.9-1.1) Activated Partial Thromboplast Time 26 SEC (23-33) Sodium Level 166 MMOL/L (136-145) *H Potassium Level 3.3 MMOL/L (3.5-5.1) L Chloride Level 123 MMOL/L (98-107) H Carbon Dioxide Level 36 MMOL/L (21-32) H Anion Gap 8 mmol/L (5-15) Blood Urea Nitrogen 57 mg/dL (7-18) H Creatinine 1.1 MG/DL (0.55-1.30) Estimat Glomerular Filtration Rate > 60 mL/min (>60) Glucose Level 493 MG/DL (74-106) H Lactic Acid Level 2.00 mmol/L (0.4-2.0) Calcium Level 9.5 MG/DL (8.5-10.1) Total Bilirubin 0.3 MG/DL (0.2-1.0) Aspartate Amino Transf (AST/SGOT) 29 U/L (15-37) Alanine Aminotransferase (ALT/SGPT) 34 U/L (12-78) Alkaline Phosphatase 106 U/L (46-116) Total Creatine Kinase 92 U/L (26-308) Troponin I 0.000 ng/mL (0.000-0.056) Total Protein 8.4 G/DL (6.4-8.2) H Albumin 2.4 G/DL (3.4-5.0) L Globulin 6.0 g/dL Albumin/Globulin Ratio 0.4 (1.0-2.7) L Urine Color Yellow Urine Appearance Very cloudy Urine pH 6.5 (4.5-8.0) Urine Specific [place] 1.015 (1.005-1.035) Urine Protein 4+ (NEGATIVE) H Urine Glucose (UA) 4+ (NEGATIVE) H Urine Ketones 1+ (NEGATIVE) H Urine Blood 5+ (NEGATIVE) H Urine Nitrite Negative (NEGATIVE) Urine Bilirubin Negative (NEGATIVE) Urine Urobilinogen 1 MG/DL (0.0-1.0) H Urine Leukocyte Esterase 3+ (NEGATIVE) H Urine RBC Tntc /HPF (0 - 0) H Urine WBC Tntc /HPF (0 - 0) H Urine Squamous Epithelial Cells None /LPF (NONE/OCC) Urine Bacteria Many /HPF (NONE) H Height (Feet): 5 Height (Inches): 8.00 Weight (Pounds): 160 Medications Current Medications Medications (Trade) Dose Ordered Sig/Patience Route PRN Reason Start Time Stop Time Status Last Admin Dose Admin Acetaminophen (Tylenol) 650 mg Q4H PRN ORAL Mild Pain (Pain Scale 1-3) 01/01/19 23:45 01/31/19 23:44 Acetaminophen (Tylenol) 650 mg Q4H PRN ORAL fever 01/01/19 23:45 01/31/19 23:44 Albuterol/ Ipratropium (Albuterol/ Ipratropium) 3 ml Q4HRT HHN 01/02/19 03:00 01/07/19 02:59 Dextrose (Dextrose 50%) 25 ml Q30M PRN IV Hypoglycemia 01/02/19 00:00 02/01/19 00:00 Dextrose (Dextrose 50%) 50 ml Q30M PRN IV Hypoglycemia 01/02/19 00:00 02/01/19 00:00 Diphenhydramine HCl (Benadryl) 25 mg Q6H PRN ORAL Itching/Pruritis 01/01/19 23:45 01/31/19 23:44 Heparin Sodium (Porcine) (Heparin 5000 units/ml) 5,000 units EVERY 12 HOURS SUBQ 01/02/19 09:00 02/01/19 08:59 Insulin Aspart (NovoLOG) Q6HR SUBQ 01/02/19 03:30 02/01/19 03:29 01/02/19 06:14 Lorazepam (Ativan) 1 mg Q4H PRN ORAL For Anxiety 01/01/19 23:45 01/08/19 23:44 Morphine Sulfate (Morphine Sulfate) 1 mg Q4HR PRN IVP For Pain 01/01/19 23:45 01/08/19 23:44 Ondansetron HCl (Zofran) 4 mg Q6H PRN IVP Nausea & Vomiting 01/01/19 23:45 01/31/19 23:44 Piperacillin Sod/ Tazobactam Sod 4.5 gm/Sodium Chloride 110 ml @ 27.5 mls/hr EVERY 8 HOURS IVPB 01/02/19 12:00 01/07/19 11:59 Polyethylene Glycol (Miralax) 17 gm DAILYPRN PRN ORAL Constipation 01/01/19 23:45 01/31/19 23:44 Sodium Chloride 1,000 ml @ 75 mls/hr [id number] IVLG 01/02/19 00:42 02/01/19 00:41 01/02/19 03:27 Assessment/Plan Problem List: (1) HCAP (healthcare-associated pneumonia) ICD Codes: J18.9 - Pneumonia, unspecified organism SNOMED: 969555488, 469462132 (2) Severe sepsis ICD Codes: A41.9 - Sepsis, unspecified organism; R65.20 - Severe sepsis without septic shock SNOMED: 72120402, 764852923 (3) History of CVA (cerebrovascular accident) ICD Codes: Z86.73 - Personal history of transient ischemic attack (TIA), and cerebral infarction without residual deficits SNOMED: 712916794 (4) Stage IV decubitus ulcer ICD Codes: L89.94 - Pressure ulcer of unspecified site, stage 4 SNOMED: 277463095 (5) DARRIAN (acute kidney injury) ICD Codes: N17.9 - Acute kidney failure, unspecified SNOMED: 21913527, 0448290 (6) UTI (urinary tract infection) ICD Codes: N39.0 - Urinary tract infection, site not specified SNOMED: 70244716, 776536191 Qualifiers: Qualified Codes: N30.00 - Acute cystitis without hematuria (7) Hypernatremia ICD Codes: E87.0 - Hyperosmolality and hypernatremia SNOMED: 668784956 (8) Dehydration ICD Codes: E86.0 - Dehydration SNOMED: 38029636 (9) Hypocalcemia ICD Codes: E83.51 - Hypocalcemia SNOMED: 6645146 (10) Hypokalemia ICD Codes: E87.6 - Hypokalemia SNOMED: 91475593 Assessment/Plan: This Is a 63-year-old male with a past medical history of CVA status post trach and PEG with chronic indwelling Naik secondary to neurogenic bladder, diabetes mellitus type 2, multiple ulcers including stage IV decubitus ulcer presenting with altered mental status, HAP, Severe sepsis, hypernatremia, and CAUTI ( present on admission) #Severe sepsis (tachycardia, WBC, altered mental status, elevated lactate), secondary to HCAP and UTI #Healthcare associated pneumonia #CAUTI (present on admission) #Chronic indwelling Naik secondary to neurogenic bladder #Stage IV decubitus ulcer, does not appear to be source -Admit to telemetry -Blood cultures x2 -Sputum culture -Follow urine culture -Urine Legionella -Appreciate general surgery recommendations for evaluation of decubitus ulcer: Dr. Raza -Check ESR and CRP -Trend lactate -Vancomycin per pharmacy (01/02 - ) -Zosyn (01/02 - ) -LR 75 cc/hr -2D echocardiogram #Hypernatremia. Corrected sodium 175 on admission. #Elevated chloride #Severe dehydration > Free water deficit of 10 L -LR as above -FWF of 250 cc q4 hour -Trend BMP every 6 hours -Goal to correct no more than 6-8 MEQ per day #Hyperglycemia #Diabetes mellitus type 2 -Does not appear patient is on any long-acting insulin at the facility -Accu-Cheks G3oilot -SSI -Hypoglycemia protocol -May initiate long-acting insulin depending on 24-hour insulin requirement #History of CVA #Dysphasia #Status post PEG #History of tracheostomy -Tube feeds -Elevate head of bed -aspirin 81mg daily -patient not on statin. Unclear reason #Stage IV decubitus ulcer, present on admission #Bilateral foot ulcers present on admission -Wound consult FENPPX DVTPPX: heparin SQ GI PPX: Protonix Fluids: as above Diet: Tube feeds Lines: peripheral PT/OT: pending Code status: Full Dispo: Back to snf Reason for Continued Hospitalization:Sepsis 73 minutes spent on this encounter. Discussed with RN and Ed staff. > 50% spent on counseling and care coordination. Time of note may not reflect time patient was seen. Lucio Thayer D.O. Jan 02, 2019 07:36
[2019-01-02] MEDS: Albuterol/Ipratropium 3ml neb HHN SCH ×4 (07:59→19:25)
[2019-01-02] MEDS ORDERED: Vancomycin 1.25gm/NS Premix 275 ML IVPB ONE (08:00)
[2019-01-02] MEDS: Heparin 5000 units/ml inj SUBQ SCH ×2 (08:15→21:27)
[2019-01-02] MEDS ORDERED: Vancomycin 1.5gm/NS Premix IVPB ONE (09:00)
[2019-01-02 09:02] LABS: ALANINE AMINOTRANSFERASE 29 U/L (12-78); ALBUMIN 2.1 G/DL (3.4-5.0); ALBUMIN/GLOBULIN RATIO 0.4 (1.0-2.7); ALKALINE PHOSPHATASE 92 U/L (46-116); ANION GAP 2 mmol/L (5-15); ASPARTATE AMINO TRANSFERASE 22 U/L (15-37); BILIRUBIN,TOTAL 0.4 MG/DL (0.2-1.0); BLOOD UREA NITROGEN 45 mg/dL (7-18); CALCIUM 9.2 MG/DL (8.5-10.1); CARBON DIOXIDE 37 MMOL/L (21-32); CHLORIDE 127 MMOL/L (98-107); CREATININE 0.9 MG/DL (0.55-1.30); PHOSPHORUS 2.5 MG/DL (2.5-4.9); POTASSIUM 3.5 MMOL/L (3.5-5.1)
[2019-01-02 09:04] LABS: BASOPHILS % (AUTO) 1.3 % (0.0-2.0); EOSINOPHILS % (AUTO) 4.6 % (0.0-3.0); HEMOGLOBIN 10.6 G/DL (14.2-18.0); LYMPHOCYTES % (AUTO) 17.8 % (20.0-45.0); MEAN CORPUSCULAR VOLUME 86 FL (80-99); MONOCYTES % (AUTO) 3.7 % (1.0-10.0); NEUTROPHILS % (AUTO) 72.6 % (45.0-75.0); PLATELET COUNT 250 K/UL (150-450); RED BLOOD COUNT 3.95 M/UL (4.70-6.10); RED CELL DISTRIBUTION WIDTH 14.7 % (11.6-14.8); SODIUM 167 MMOL/L (136-145); WHITE BLOOD COUNT 11.5 K/UL (4.8-10.8)
--- NOTE | 2019-01-02 09:18 | NUR ---
NURSE NOTES: Paged Dr. Enrique Nice awaiting for response.
[2019-01-02] MEDS: Midodrine 10mg tab GT SCH ×3 (09:24→17:45)
[2019-01-02 10:20] LABS: PHOSPHORUS 2.5 MG/DL (2.5-4.9)
--- NOTE | 2019-01-02 10:20 | NUR ---
NURSE NOTES: Received new order from Dr. Nunez for LR at 75cc/hr. Addendum: 01/02/19 at 1858 by RON HYATT RN RN Informed Dr. Nunez pt. Na 167.
--- NOTE | 2019-01-02 11:02 | Diagnostic Imaging Report ---
Indication: Reason For Exam: SOB Technique: Single AP view of the chest. Comparison: Chest radiograph dated 07/08/2018 Findings: The cardiomediastinal silhouette is unchanged. Redemonstration of obscuration of the left diaphragm and heart border, which may be due to cardiophrenic fat versus small effusion with atelectasis. Mild pulmonary vascular congestion. No new airspace consolidation. No pneumothorax. No acute osseous abnormality. IMPRESSION: No significant change from prior examination.
--- NOTE | 2019-01-02 11:16 | NUR ---
RD ASSESSMENT & RECOMMENDATIONS SEE CARE ACTIVITY FOR COMPLETE ASSESSMENT DAILY ESTIMATED NEEDS: Needs based on Wounds, sepsis FELT HAT STEAMER TF/69kg 25-30 kcals/kg 1707-7556 total kcals 1.25-2 g protein/kg 86-138 g total protein 25-30 mL/kg 1026-0223 total fluid mLs NUTRITION DIAGNOSIS: 1) Increased kcal and protein needs r/t wound healing as evidenced by pt adm w/ multiple wounds, including stage 4 sacral wound, WC eval pending. 2) Swallowing difficulty r/t dysphagia and h/o CVA as evidenced by pt is PEG dep. CURRENT TF:Glucerna 1.2 @35ml/hr x24 hrs ENTERAL NUTRITION RECOMMENDATIONS: Glucerna 1.5 @55ml/hr x24 hrs to provide 1320ml, 1980 kcal, 109g prot, 1002ml free H2O - Rec TF change to better meet est needs, start Glucerna 1.5 @25ml/hr. - Advance as tolerated 10ml q4-6 hrs to goal - Flush per MD, HOB over 30 degrees ADDITIONAL RECOMMENDATIONS: 1) Wound care: Rafael 1pkt BID, Vit C 250mg BID TF @ goal will provide 100% RDI Add Zn SO4 220mg daily x10 days 2) F/up w/ H&P 3) Per SNF, pt's HT=5'10", [id number] 4) Consider long acting insulin for improved glycemic control 5) Increase water flushes (Elev Na, BUN)
[2019-01-02] MEDS: Pantoprazole Inj IVP SCH (11:26)
[2019-01-02] MEDS: LR 1000ml 1,000 ML IV SCH (12:02)
[2019-01-02] MEDS: Zosyn 4.5gm q8h **Extended infusion IVPB SCH ×4 (12:03→21:28)
[2019-01-02] MEDS: Aspirin Baby 81mg NG SCH (15:43)
--- NOTE | 2019-01-02 18:56 | NUR ---
HAND-OFF: Report given to Mick RN. Pt. remain stable.
--- NOTE | 2019-01-02 19:00 | NUR ---
NURSE NOTES: Received report from Yajaira Rebolledo RN. Patient in bed asleep with no S/S of acute pain or discomfort noted. Kept clean, dry, and comfortable in bed. Patient bedbound and incontinent with FC in place per MD order, changed when soiled PRN. IV line intact and patent with prescribed fluids running as ordered. WC order in place per protocol, kept dressing dry and intact. Safety precaution in place; siderails X3 up, call light within reach, bed in lowest position, brakes and alarm on at all times. Needs and wants anticipated and attended. Will continue plan of care and monitor for any changes noted. IV fluids changed to LR at 75/hr
--- NOTE | 2019-01-02 19:26 | NUR ---
CASE MANAGEMENT: INITIAL REVIEW 63 YO M DAVE FROM [facility] CC: ALOC PMHx: HTN. COPD. OA. DM. HLD. SI:SEPSIS. PNA. T 99.9 HR 140 RR 34 B/P 119/78 SATS 96% ON 6L/SIMPLE MASK WBC 12.7 NA 166 K 3.3 CL 123 CO2 36 BUN 57 GLU 493 IS: NS BOLUS X1 TYLENOL REC X1 CEFEPIME IV X1 LEVAQUIN IV X1 PATIENT ADMITTED TO TELE 01/02/2019 @ 0216 DCP: PATIENT TO BE DISCHARGED TO SNF ONCE MEDICALLY CLEARED. PLAN OF CARE: SPUTUM INDUCEMENT WOUND CARE Addendum: 01/02/19 at 2113 by Lou Brody CM INTERQUAL MET
--- NOTE | 2019-01-02 19:44 | Consultation ---
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 Patient presents with severely abnormal labs, leukocytosis, sepsis. Admitted for care and management. Surgery called to evaluate and assist with care. patient seen, chart reviewed, patient examined. wounds noted, care input placed, abx initiated , labs pending. Allergies: Coded Allergies: No Known Allergies (Unverified , 09/29/17) Medication History Scheduled Amino Acids/Protein Hydrolys (Pro-Stat Liquid), 30 ML GT DAILY, (Reported) Aspirin* (Aspir 81*), 81 MG GT DAILY, (Reported) Bisacodyl* (Dulcolax*), 10 MG GT ONCE, (Reported) Clonidine Hcl* (Catapres*), 0.1 MG ORAL EVERY 6 HOURS, (Reported) Cran/Vitc/Mannose/Inulin/Brom (Uti-Stat Liquid), 3,875 MG GT EVERY 12 HOURS, ( Reported) Docusate Sodium* (Colace*), 100 MG GT DAILY, (Reported) Ibuprofen (Ibuprofen), 600 MG GT Q6H, (Reported) Magnesium Hydroxide* (Milk Of Magnesia*), 30 ML ORAL DAILY, (Reported) Magnesium Hydroxide* (Milk Of Magnesia*), 30 ML GT QHS, (Reported) Midodrine (Midodrine HCl), 10 MG GT THREE TIMES A DAY, (Reported) Multivitamin with Minerals (Multivitamins with Minerals), 1 TAB GT DAILY, ( Reported) Na Phos,M-B/Na Phos,Di-Ba* (Fleet Enema*), 133 ML RECTAL DAILY, (Reported) Pantoprazole* (Protonix*), 40 MG GT DAILY, (Reported) Sennosides (Senna), 8.6 MG GT BEDTIME, (Reported) Vit C/Ascorb Sod/Multivit-Min (Emergen-C 500 mg Chewable Tab), 500 MG GT DAILY, (Reported) Scheduled PRN Acetaminophen (Tylenol), 650 MG GT Q4HR PRN for Prn Headache/Temp > 101, ( Reported) Acetaminophen (Tylenol), 650 MG GT Q4HR PRN for Pain Scale (3-5), (Reported) Diphenhydramine Hcl* (Benadryl*), 25 MG GT Q6H PRN for Itching, (Reported) Ipratropium/Albuterol Sulfate (DuoNeb 0.5-3(2.5)mg/3ml), 3 ML HHN for Shortness of Breath, (Reported) Miscellaneous Medications Insulin Lispro (Humalog), 0 SUBQ, (Reported) Discontinued Medications Acetaminophen (Tylenol), 650 MG ORAL Q6H PRN for Prn Pain/Headache/Temp > 101, ( Reported) Discontinued Reason: MD discontinued med Amikacin Sulfate (Amikacin Sulfate), 1,000 MG IJ Q24H Discontinued Reason: MD discontinued med Aspirin* (Aspir 81*), 81 MG ORAL DAILY Discontinued Reason: MD discontinued med Bisacodyl (Dulcolax), 10 MG RC, (Reported) Discontinued Reason: MD discontinued med Docusate Sodium* (Colace*), 100 MG ORAL DAILY, (Reported) Discontinued Reason: MD discontinued med Ipratropium [place] (Ipratropium [place]), 15 ML NS, (Reported) Discontinued Reason: MD discontinued med Ipratropium/Albuterol Sulfate (DuoNeb 0.5-3(2.5)mg/3ml), 3 ML HHN, (Reported) Discontinued Reason: MD discontinued med Midodrine* (Proamatine*), 10 MG ORAL THREE TIMES A DAY, (Reported) Discontinued Reason: MD discontinued med Na Phos,M-B/Na Phos,Di-Ba* (Fleet Enema*), 133 ML RECTAL DAILY, (Reported) Discontinued Reason: MD discontinued med Pantoprazole* (Pantoprazole*), 40 MG ORAL DAILY, (Reported) Discontinued Reason: MD discontinued med Piperacillin/Tazobactam Sod (Zosyn 3.375 Gram Vial), 3.375 GM IV EVERY 8 HOURS Discontinued Reason: MD discontinued med Sennosides (Senna), 8.6 MG PO, (Reported) Discontinued Reason: MD discontinued med Trimethoprim/Sulfamethoxazole 160/800* (Bactrim Ds Tablet*), 2 TAB GT Q12H Discontinued Reason: MD discontinued med Vancomycin Hcl/D5w (Vancomycin Hcl 1G/200 Ml Bag), 1.5 GM IV Q12HR Discontinued Reason: MD discontinued med Zinc Sulfate (Zinc Sulfate*), 220 MG ORAL DAILY, (Reported) Discontinued Reason: discontinued med Patient History Limited by: medical condition History Provided By: Medical Record, PMD Healthcare decision maker Resuscitation status Full Code Advanced Directive on File Past Medical/Surgical History Past Medical/Surgical History: (1) Fever (2) Sacral decubitus ulcer (3) Sepsis (4) Acute encephalopathy (5) Septic shock (6) Leukocytosis (7) Acute kidney injury (8) Acute CVA (cerebrovascular accident) (9) Dehydration (10) Hypernatremia (11) UTI (urinary tract infection) (12) Severe sepsis (13) HCAP (healthcare-associated pneumonia) (14) DARRIAN (acute kidney injury) (15) Hypokalemia (16) Hypocalcemia (17) Stage IV decubitus ulcer (18) History of CVA (cerebrovascular accident) Review of Systems ROS Narrative cannot obtain given medical condition Physical Exam General Appearance: no apparent distress Lines, tubes and drains: peripheral HEENT: mucous membranes moist Neck: normal alignment, normal inspection Respiratory/Chest: normal breath sounds, no respiratory distress, no accessory muscle use Cardiovascular/Chest: normal peripheral pulses, normal rate Abdomen: soft, no organomegaly, no mass, feeding tube, other Extremities: non-tender, inflammation, slow capillary refill, other Skin Exam: warm/dry Neurologic: alert Last 24 Hour Vital Signs Date Time Temp Pulse Resp B/P (MAP) Pulse Ox O2 Delivery O2 Flow Rate FiO2 01/02/19 19:26 99 Nasal Cannula 2.0 28 01/02/19 19:25 90 20 100 Nasal Cannula 2.0 28 88 20 99 01/02/19 16:03 98 01/02/19 16:00 97.7 97 20 121/76 (91) 98 01/02/19 13:52 98 20 99 Nasal Cannula 2.0 28 90 20 99 01/02/19 12:00 98.2 89 18 130/79 (96) 98 01/02/19 11:54 87 01/02/19 09:00 Room Air 01/02/19 08:07 99 Nasal Cannula 2.0 28 01/02/19 08:03 98 20 100 Nasal Cannula 2.0 28 97 20 99 01/02/19 08:00 97.4 96 20 128/83 (98) 97 01/02/19 07:37 97 01/02/19 04:00 97.8 103 24 131/80 (97) 100 01/02/19 04:00 99 01/02/19 02:50 Nasal Cannula 2.0 01/02/19 02:30 98.8 103 24 107/73 (84) 97 01/02/19 02:30 98 01/02/19 01:57 98.4 103 25 114/72 94 Simple Mask 6.0 01/02/19 01:12 98.4 100 30 102/69 99 Simple Mask 6.0 01/01/19 23:30 107 30 120/78 100 Simple Mask 6.0 01/01/19 22:57 36 129/79 99 Simple Mask 6.0 01/01/19 22:35 98.4 01/01/19 21:50 99.9 34 119/78 96 Simple Mask 6.0 01/01/19 21:50 140 34 Simple Mask 6.0 01/01/19 21:27 99.9 140 34 119/78 (92) 96 Simple Mask 6.0 Intake and Output 01/01/19 01/02/19 19:00 07:00 Intake Total 35 ml Output Total 750 ml Balance -715 ml Intake Tube Feeding 35 ml Output Urine Total 750 ml Laboratory Tests Test 01/01/19 21:50 01/01/19 22:27 01/02/19 08:00 01/02/19 08:52 White Blood Count 12.7 K/UL (4.8-10.8) H 11.5 K/UL (4.8-10.8) H Red Blood Count 4.58 M/UL (4.70-6.10) L 3.95 M/UL (4.70-6.10) L Hemoglobin 12.3 G/DL (14.2-18.0) L 10.6 G/DL (14.2-18.0) L Hematocrit 39.7 % (42.0-52.0) L 34.0 % (42.0-52.0) L Mean Corpuscular Volume 87 FL (80-99) 86 FL (80-99) Mean Corpuscular Hemoglobin 26.8 PG (27.0-31.0) L 26.9 PG (27.0-31.0) L Mean Corpuscular Hemoglobin Concent 30.9 G/DL (32.0-36.0) L 31.2 G/DL (32.0-36.0) L Red Cell Distribution Width 14.9 % (11.6-14.8) H 14.7 % (11.6-14.8) Platelet Count 308 K/UL (150-450) 250 K/UL (150-450) Mean Platelet Volume 8.9 FL (6.5-10.1) 9.9 FL (6.5-10.1) Neutrophils (%) (Auto) 66.1 % (45.0-75.0) 72.6 % (45.0-75.0) Lymphocytes (%) (Auto) 24.3 % (20.0-45.0) 17.8 % (20.0-45.0) L Monocytes (%) (Auto) 3.6 % (1.0-10.0) 3.7 % (1.0-10.0) Eosinophils (%) (Auto) 4.2 % (0.0-3.0) H 4.6 % (0.0-3.0) H Basophils (%) (Auto) 1.8 % (0.0-2.0) 1.3 % (0.0-2.0) Prothrombin Time 11.4 SEC (9.30-11.50) Prothromb Time International Ratio 1.1 (0.9-1.1) Activated Partial Thromboplast Time 26 SEC (23-33) Sodium Level 166 MMOL/L (136-145) *H Pending Potassium Level 3.3 MMOL/L (3.5-5.1) L Pending Chloride Level 123 MMOL/L (98-107) H Pending Carbon Dioxide Level 36 MMOL/L (21-32) H Pending Anion Gap 8 mmol/L (5-15) 2 mmol/L (5-15) L Blood Urea Nitrogen 57 mg/dL (7-18) H Pending Creatinine 1.1 MG/DL (0.55-1.30) Pending Estimat Glomerular Filtration Rate > 60 mL/min (>60) Pending Glucose Level 493 MG/DL (74-106) H Pending Lactic Acid Level 2.00 mmol/L (0.4-2.0) 1.70 mmol/L (0.4-2.0) Calcium Level 9.5 MG/DL (8.5-10.1) Pending Total Bilirubin 0.3 MG/DL (0.2-1.0) Pending Aspartate Amino Transf (AST/SGOT) 29 U/L (15-37) Pending Alanine Aminotransferase (ALT/SGPT) 34 U/L (12-78) Pending Alkaline Phosphatase 106 U/L (46-116) Pending Total Creatine Kinase 92 U/L (26-308) Troponin I 0.000 ng/mL (0.000-0.056) Total Protein 8.4 G/DL (6.4-8.2) H Pending Albumin 2.4 G/DL (3.4-5.0) L Pending Globulin 6.0 g/dL Pending Albumin/Globulin Ratio 0.4 (1.0-2.7) L 0.4 (1.0-2.7) L Urine Color Yellow Urine Appearance Very cloudy Urine pH 6.5 (4.5-8.0) Urine Specific [place] 1.015 (1.005-1.035) Urine Protein 4+ (NEGATIVE) H Urine Glucose (UA) 4+ (NEGATIVE) H Urine Ketones 1+ (NEGATIVE) H Urine Blood 5+ (NEGATIVE) H Urine Nitrite Negative (NEGATIVE) Urine Bilirubin Negative (NEGATIVE) Urine Urobilinogen 1 MG/DL (0.0-1.0) H Urine Leukocyte Esterase 3+ (NEGATIVE) H Urine RBC Tntc /HPF (0 - 0) H Urine WBC Tntc /HPF (0 - 0) H Urine Squamous Epithelial Cells None /LPF (NONE/OCC) Urine Bacteria Many /HPF (NONE) H Erythrocyte Sedimentation Rate 53 MM/HR (0-20) H Phosphorus Level 2.5 MG/DL (2.5-4.9) Magnesium Level 2.2 MG/DL (1.8-2.4) C-Reactive Protein, Quantitative 5.7 mg/dL (0.00-0.90) H Test 01/02/19 11:15 Urine Legionella Antigen Pending Microbiology Date/Time Source Procedure Growth Status 01/01/19 22:27 Urine,Clean Catch Urine Culture - Preliminary Resulted 01/02/19 11:15 Rectum Received Height (Feet): 5 Height (Inches): 8.00 Weight (Pounds): 160 Medications Current Medications Medications (Trade) Dose Ordered Sig/Patience Route PRN Reason Start Time Stop Time Status Last Admin Dose Admin Acetaminophen (Tylenol) 650 mg Q4H PRN ORAL Mild Pain (Pain Scale 1-3) 01/01/19 23:45 01/31/19 23:44 Acetaminophen (Tylenol) 650 mg Q4H PRN ORAL fever 01/01/19 23:45 01/31/19 23:44 Albuterol/ Ipratropium (Albuterol/ Ipratropium) 3 ml Q6HRT HHN 01/02/19 13:00 01/07/19 12:59 01/02/19 19:25 Aspirin (ASA) 81 mg DAILY NG 01/02/19 14:00 02/01/19 13:59 01/02/19 15:43 Dextrose (Dextrose 50%) 25 ml Q30M PRN IV Hypoglycemia 01/02/19 00:00 02/01/19 00:00 Dextrose (Dextrose 50%) 50 ml Q30M PRN IV Hypoglycemia 01/02/19 00:00 02/01/19 00:00 Diphenhydramine HCl (Benadryl) 25 mg Q6H PRN ORAL Itching/Pruritis 01/01/19 23:45 01/31/19 23:44 Heparin Sodium (Porcine) (Heparin 5000 units/ml) 5,000 units EVERY 12 HOURS SUBQ 01/02/19 09:00 02/01/19 08:59 01/02/19 08:15 Insulin Aspart (NovoLOG) Q6HR SUBQ 01/02/19 03:30 02/01/19 03:29 01/02/19 17:45 Lactated Ringer's 1,000 ml @ 75 mls/hr [id number] IV 01/02/19 11:30 02/01/19 11:29 01/02/19 12:02 Lorazepam (Ativan) 1 mg Q4H PRN ORAL For Anxiety 01/01/19 23:45 01/08/19 23:44 Midodrine (Pro-Amatine) 10 mg THREE TIMES A DAY GT 01/02/19 09:00 02/01/19 08:59 01/02/19 17:45 Morphine Sulfate (Morphine Sulfate) 1 mg Q4HR PRN IVP For Pain 01/01/19 23:45 01/08/19 23:44 Ondansetron HCl (Zofran) 4 mg Q6H PRN IVP Nausea & Vomiting 01/01/19 23:45 01/31/19 23:44 Pantoprazole (Protonix) 40 mg DAILY IVP 01/02/19 10:15 02/01/19 10:14 01/02/19 11:26 Piperacillin Sod/ Tazobactam Sod 4.5 gm/Sodium Chloride 110 ml @ 27.5 mls/hr EVERY 8 HOURS IVPB 01/02/19 12:00 01/07/19 11:59 01/02/19 12:03 Polyethylene Glycol (Miralax) 17 gm DAILYPRN PRN ORAL Constipation 01/01/19 23:45 01/31/19 23:44 Sennosides (Senokot) 8.6 mg BEDTIME GT 01/02/19 21:00 02/01/19 20:59 Vancomycin HCl (Vanco rx to dose) 1 ea DAILY PRN MISC Per rx protocol 01/02/19 08:00 02/01/19 07:59 Vancomycin/Sodium Chloride 275 ml @ 183.333 mls/hr Q12HR IVPB 01/02/19 21:00 01/07/19 20:59 Assessment/Plan Problem List: (1) Sepsis Assessment & Plan: leukocytosis abnormal labs hyperNa electrolytes abnormal exam as below unlikely etiology of sepsis wounds IV Abx as per ID AM labs trend labs will follow with recs thank you ICD Codes: A41.9 - Sepsis, unspecified organism SNOMED: 81528896 (2) Leukocytosis ICD Codes: D72.829 - Elevated white blood cell count, unspecified SNOMED: 883230903, 135483051 (3) Stage IV decubitus ulcer Assessment & Plan: Pt presented on admission with multiple pressure injuries.Full thickness sacral pressure injury with undermining. Base of wound is beefy red. Bone is palpable.Borders red and flat. Darker skin tone periwound without erythema or induration. (L)8cm x (W)7.5cm x(D)3cm ,Undermining 7-5 by 5.5cm@ 8 o'clock. No odor noted .Small amt serous exudate noted. Partially opened DTPI L ischium.Base of wound dark brown. Areas that are fluctuant, with scattered openings that are viable within base of wound.Periwound without erythema or induration. (L)7.5cm x (W)4.2cmPartial thickness pressure injury noted to posterior Upper L thigh (L)0.6cm x (W) 0.5cm.Base of wound is moist -viable.No odor or exudate noted. Dry peeling skin without erythema periwound. Partially opened DTPI lateral L Tibia. Base of wound with 40% pink granulation otherwise with 60% soft urbina slough. Small amt non-odorous exudate noted. (L) 4.3cm x (W)4.2cm. L heel pressure injury with 80% mixed dry eschar and slough,20% pink granulation. No odor or exudate noted.Periwound is fluctuant but blanchable. Dark skin tone without induration or fluctuance noted to R ischium. Scattered partial thickness openings within affected area of discoloration.Full thickness pressure injury Lateral R malleolus. Base of wound erythematous with trace amt Biofilm.Small amt non-odorous serous exudate noted.Erythema noted along borders and periwound.No odor noted.(L)1cm x (W)1.2cm. Blood filled blister noted to lateral R heel. Base of wound is purple and fluctuant. Non-blanchable erythema with fluctuance noted periwound. (L)(L)2cm x (W)2.5cm. Tx.Plan: Cleanse sacral wound with Saline. Loosely pack with Hydrogel impregnated kerlix. Apply Triad paste periwound. Cover with Optifoam drsg. Change Daily and PRN. Cleanse L Ischium with Saline. Apply Triad Paste. Cover with Optifoam drsg. Change every 3 days and prn. Cleanse lateral tibia with Saline. Apply Therahoney. Cavilon Skin Barrier Periwound. Cover with Optifoam drsg. Change every 3 days and prn. Cleanse L heel with Saline. Apply Therahoney. Apply Cavilon Skin Barrier periwound. Cover with Optifoam drsg. Change every 3 days and prn. Apply Triad Paste to R ischium . Cover with Optifoam drsg. Change every 3 days and prn. Cleanse R lateral Malleolus with Saline. Apply Therahoney. Apply Cavilon Periwound. Cover with Optifoam drsg Change every 3 days and prn. Apply Cavilon Skin Barrier to R heel . Cover with Optifoam drsg. Change every 7 days and prn. APM/SELENA Mattress overlay. Reposition at least every 2hours or as tolerated. ICD Codes: L89.94 - Pressure ulcer of unspecified site, stage 4 SNOMED: 352162744 Tonio Raza Jan 02, 2019 19:44
[2019-01-02] MEDS: Sennosides 8.6mg tab GT SCH (21:25)
[2019-01-02] MEDS: Vancomycin 1.25gm/NS Premix IVPB SCH (21:26)
[2019-01-03] VITALS: BP 128/72
[2019-01-03] MEDS: LR 1000ml 1,000 ML IV SCH (00:50)
[2019-01-03] MEDS: NovoLOG Insulin Flexpen SUBQ SCH ×4 (00:54→17:38)
[2019-01-03 01:21] LABS: ANION GAP 3 mmol/L (5-15); BLOOD UREA NITROGEN 37 mg/dL (7-18); CARBON DIOXIDE 37 MMOL/L (21-32); CHLORIDE 129 MMOL/L (98-107); CREATININE 0.8 MG/DL (0.55-1.30); POTASSIUM 3.6 MMOL/L (3.5-5.1)
[2019-01-03] MEDS: Albuterol/Ipratropium 3ml neb HHN SCH ×4 (01:29→20:00)
[2019-01-03 01:35] LABS: SODIUM 167 MMOL/L (136-145)
[2019-01-03 04:00] VITALS: BP 121/74
[2019-01-03] MEDS: Zosyn 4.5gm q8h **Extended infusion IVPB SCH ×6 (05:31→22:46)
--- NOTE | 2019-01-03 07:20 | NUR ---
NURSE NOTES: Received report from Cortes Bills RN. Patient in bed asleep with no S/S of acute pain or discomfort noted. Patient bedbound and incontinent with FC in place per MD order, changed when soiled PRN. IV lines are dy, intact, and patent with prescribed fluids running as ordered. Wound care order in place per protocol, kept dressing dry and intact. Safety precaution in place; side rails X3 up, call light within reach, bed in lowest position, brakes and alarm on at all times. Will continue plan of care and monitor for any changes noted.
[2019-01-03 07:32] LABS: HEMATOCRIT 30.8 % (42.0-52.0); HEMOGLOBIN 9.5 G/DL (14.2-18.0); MEAN CORPUSCULAR VOLUME 87 FL (80-99); PLATELET COUNT 248 K/UL (150-450); RED BLOOD COUNT 3.54 M/UL (4.70-6.10); RED CELL DISTRIBUTION WIDTH 16.7 % (11.6-14.8); WHITE BLOOD COUNT 9.1 K/UL (4.8-10.8)
--- NOTE | 2019-01-03 07:48 | NUR ---
HAND-OFF: Report given to Mayela Sebastian RN. Patient in bed with no S/S of distress. Endorsed plan of care.
[2019-01-03 08:00] VITALS: BP 129/68
[2019-01-03 08:08] LABS: ALANINE AMINOTRANSFERASE 24 U/L (12-78); ALBUMIN/GLOBULIN RATIO 0.4 (1.0-2.7); ALKALINE PHOSPHATASE 83 U/L (46-116); ANION GAP 3 mmol/L (5-15); ASPARTATE AMINO TRANSFERASE 20 U/L (15-37); BILIRUBIN,TOTAL 0.3 MG/DL (0.2-1.0); BLOOD UREA NITROGEN 34 mg/dL (7-18); CALCIUM 9.2 MG/DL (8.5-10.1); CARBON DIOXIDE 35 MMOL/L (21-32); CHLORIDE 128 MMOL/L (98-107); CREATININE 0.8 MG/DL (0.55-1.30); PHOSPHORUS 3.3 MG/DL (2.5-4.9); POTASSIUM 3.4 MMOL/L (3.5-5.1)
[2019-01-03 08:13] LABS: SODIUM 166 MMOL/L (136-145)
--- NOTE | 2019-01-03 08:18 | NUR ---
NURSE NOTES: 8:12am- Received critical lab value from renny Sanon of NA 166. 8:17am- Called Dr. Del Real's group to report critical lab. Awaiting call back.
--- NOTE | 2019-01-03 08:34 | NUR ---
NURSE NOTES: Received call back from Dr. Toribio. Reported critical lab of Na 166 and potassium 3.4. Received orders and were entered.
[2019-01-03] MEDS: Aspirin Baby 81mg NG SCH (09:22)
[2019-01-03] MEDS: Pantoprazole Inj IVP SCH (09:22)
[2019-01-03] MEDS: Midodrine 10mg tab GT SCH ×3 (09:22→17:35)
[2019-01-03] MEDS: Vancomycin 1.25gm/NS Premix IVPB SCH (09:22)
[2019-01-03] MEDS: Heparin 5000 units/ml inj SUBQ SCH ×2 (09:24→21:15)
--- NOTE | 2019-01-03 09:45 | NUR ---
*-* NO INSURANCE INFORMATION IN THE BAR UNABLE TO SEND CLINICALS OR REVIEWS *-* Addendum: 01/03/19 at 1626 by STAR SPRINGER LVN LVN [facility]
--- NOTE | 2019-01-03 10:40 | Surgery Progress Note ---
Surgery Progress Note Subjective Additional Comments no acute events leukocytosis improved exam stable labs noted TF 30cc/hr Objective Last 24 Hour Vital Signs Date Time Temp Pulse Resp B/P (MAP) Pulse Ox O2 Delivery O2 Flow Rate FiO2 01/03/19 08:00 97.7 93 20 129/68 (88) 100 01/03/19 07:56 92 20 100 Nasal Cannula 2.0 28 83 20 99 01/03/19 07:56 99 Nasal Cannula 2.0 28 01/03/19 04:00 90 01/03/19 04:00 97.8 94 19 121/74 (90) 99 01/03/19 01:29 91 20 100 Nasal Cannula 2.0 28 89 20 99 01/03/19 00:00 88 01/03/19 00:00 97.8 98 19 128/72 (90) 98 01/02/19 21:00 Room Air 01/02/19 20:00 94 01/02/19 20:00 97.5 96 19 124/75 (91) 99 01/02/19 19:26 99 Nasal Cannula 2.0 28 01/02/19 19:25 90 20 100 Nasal Cannula 2.0 28 88 20 99 01/02/19 16:03 98 01/02/19 16:00 97.7 97 20 121/76 (91) 98 01/02/19 13:52 98 20 99 Nasal Cannula 2.0 28 90 20 99 01/02/19 12:00 98.2 89 18 130/79 (96) 98 01/02/19 11:54 87 I&O Intake and Output 01/02/19 01/03/19 19:00 07:00 Output Total 400 ml 200 ml Balance -400 ml -200 ml Output Urine Total 400 ml 200 ml # Voids 1 Dressing: saturated Wound: other Drains: other Cardiovascular: RSR Respiratory: decreased breath sounds Abdomen: soft, non-tender, present bowel sounds, non-distended Extremities: no tenderness, no cyanosis, other Laboratory Tests Test 01/02/19 11:15 01/03/19 01:00 01/03/19 06:59 Urine Legionella Antigen Pending Sodium Level 167 MMOL/L (136-145) *H 166 MMOL/L (136-145) *H Potassium Level 3.6 MMOL/L (3.5-5.1) 3.4 MMOL/L (3.5-5.1) L Chloride Level 129 MMOL/L (98-107) H 128 MMOL/L (98-107) H Carbon Dioxide Level 37 MMOL/L (21-32) H 35 MMOL/L (21-32) H Anion Gap 3 mmol/L (5-15) L 3 mmol/L (5-15) L Blood Urea Nitrogen 37 mg/dL (7-18) H 34 mg/dL (7-18) H Creatinine 0.8 MG/DL (0.55-1.30) 0.8 MG/DL (0.55-1.30) Estimat Glomerular Filtration Rate > 60 mL/min (>60) > 60 mL/min (>60) Glucose Level 246 MG/DL (74-106) H 238 MG/DL (74-106) H Calcium Level 9.0 MG/DL (8.5-10.1) 9.2 MG/DL (8.5-10.1) White Blood Count 9.1 K/UL (4.8-10.8) Red Blood Count 3.54 M/UL (4.70-6.10) L Hemoglobin 9.5 G/DL (14.2-18.0) L Hematocrit 30.8 % (42.0-52.0) L Mean Corpuscular Volume 87 FL (80-99) Mean Corpuscular Hemoglobin 26.8 PG (27.0-31.0) L Mean Corpuscular Hemoglobin Concent 30.8 G/DL (32.0-36.0) L Red Cell Distribution Width 16.7 % (11.6-14.8) H Platelet Count 248 K/UL (150-450) Mean Platelet Volume 9.5 FL (6.5-10.1) Neutrophils (%) (Auto) % (45.0-75.0) Lymphocytes (%) (Auto) % (20.0-45.0) Monocytes (%) (Auto) % (1.0-10.0) Eosinophils (%) (Auto) % (0.0-3.0) Basophils (%) (Auto) % (0.0-2.0) Differential Total Cells Counted 100 Neutrophils % (Manual) 64 % (45-75) Lymphocytes % (Manual) 23 % (20-45) Monocytes % (Manual) 3 % (1-10) Eosinophils % (Manual) 10 % (0-3) H Basophils % (Manual) 0 % (0-2) Band Neutrophils 0 % (0-8) Platelet Estimate Adequate Platelet Morphology Normal Anisocytosis 1+ Hemoglobin A1c 8.0 % (4.3-6.0) H Phosphorus Level 3.3 MG/DL (2.5-4.9) Total Bilirubin 0.3 MG/DL (0.2-1.0) Aspartate Amino Transf (AST/SGOT) 20 U/L (15-37) Alanine Aminotransferase (ALT/SGPT) 24 U/L (12-78) Alkaline Phosphatase 83 U/L (46-116) Total Protein 7.2 G/DL (6.4-8.2) Albumin 2.0 G/DL (3.4-5.0) L Globulin 5.2 g/dL Albumin/Globulin Ratio 0.4 (1.0-2.7) L Plan Problems: (1) Sepsis Assessment & Plan: leukocytosis improving abnormal labs labs improved electrolytes abnormal - replaced exam as below unlikely etiology of sepsis wounds IV Abx as per ID AM labs trend labs will follow with recs thank you (2) Leukocytosis (3) Stage IV decubitus ulcer Assessment & Plan: Pt presented on admission with multiple pressure injuries.Full thickness sacral pressure injury with undermining. Base of wound is beefy red. Bone is palpable.Borders red and flat. Darker skin tone periwound without erythema or induration. (L)8cm x (W)7.5cm x(D)3cm ,Undermining 7-5 by 5.5cm@ 8 o'clock. No odor noted .Small amt serous exudate noted. Partially opened DTPI L ischium.Base of wound dark brown. Areas that are fluctuant, with scattered openings that are viable within base of wound.Periwound without erythema or induration. (L)7.5cm x (W)4.2cmPartial thickness pressure injury noted to posterior Upper L thigh (L)0.6cm x (W) 0.5cm.Base of wound is moist -viable.No odor or exudate noted. Dry peeling skin without erythema periwound. Partially opened DTPI lateral L Tibia. Base of wound with 40% pink granulation otherwise with 60% soft urbina slough. Small amt non-odorous exudate noted. (L) 4.3cm x (W)4.2cm. L heel pressure injury with 80% mixed dry eschar and slough,20% pink granulation. No odor or exudate noted.Periwound is fluctuant but blanchable. Dark skin tone without induration or fluctuance noted to R ischium. Scattered partial thickness openings within affected area of discoloration.Full thickness pressure injury Lateral R malleolus. Base of wound erythematous with trace amt Biofilm.Small amt non-odorous serous exudate noted.Erythema noted along borders and periwound.No odor noted.(L)1cm x (W)1.2cm. Blood filled blister noted to lateral R heel. Base of wound is purple and fluctuant. Non-blanchable erythema with fluctuance noted periwound. (L)(L)2cm x (W)2.5cm. Tx.Plan: Cleanse sacral wound with Saline. Loosely pack with Hydrogel impregnated kerlix. Apply Triad paste periwound. Cover with Optifoam drsg. Change Daily and PRN. Cleanse L Ischium with Saline. Apply Triad Paste. Cover with Optifoam drsg. Change every 3 days and prn. Cleanse lateral tibia with Saline. Apply Therahoney. Cavilon Skin Barrier Periwound. Cover with Optifoam drsg. Change every 3 days and prn. Cleanse L heel with Saline. Apply Therahoney. Apply Cavilon Skin Barrier periwound. Cover with Optifoam drsg. Change every 3 days and prn. Apply Triad Paste to R ischium . Cover with Optifoam drsg. Change every 3 days and prn. Cleanse R lateral Malleolus with Saline. Apply Therahoney. Apply Cavilon Periwound. Cover with Optifoam drsg Change every 3 days and prn. Apply Cavilon Skin Barrier to R heel . Cover with Optifoam drsg. Change every 7 days and prn. APM/SELENA Mattress overlay. Reposition at least every 2hours or as tolerated. Tonio Raza Jan 03, 2019 10:40
[2019-01-03 12:00] VITALS: BP 123/79
--- NOTE | 2019-01-03 12:16 | Cardiology Report ---
APPROVED REPORT EXAM: Two-dimensional and M-mode echocardiogram with Doppler and color Doppler. INDICATION Chest Pain M-Mode DIMENSIONS IVSd1.1 (0.7-1.1cm)Left Atrium (MM)3.4 (1.6-4.0cm) LVDd3.8 (3.5-5.6cm)Aortic Root4.7 (2.0-3.7cm) PWd0.8 (0.7-1.1cm)Aortic Cusp Exc.1.9 (1.5-2.0cm) IVSs1.3 cm LVDs2.4 (2.5-4.0cm) PWs1.3 cm Study quality precludes accurate assessment of regional wall motion. Normal left ventricular chamber size, systolic function and wall motion to extent visualized. Left ventricular ejection fraction estimated to be grossly normal. All other cardiac chamber sizes are within normal limits. Focal aortic valve sclerosis with adequate cusp excursion. Heavily thickened mitral valve leaflets with normal excursion. Mitral annulus and aortic root calcification. Normal pulmonic valve structure. Normal tricuspid valve structure. Subcostal views are not obtainable . A color flow and spectral Doppler study was performed and revealed: Trace mitral regurgitation. Mitral diastolic velocities suggest reduced left ventricular relaxation c/w mild LV diastolic dysfunction (Grade I ) Trace tricuspid regurgitation. Tricuspid systolic velocities suggests peak right ventricular systolic pressure of 23 mmHg.
--- NOTE | 2019-01-03 13:59 | General Progress Note ---
Assessment/Plan Problem List: (1) Dehydration ICD Codes: E86.0 - Dehydration SNOMED: 75618246 (2) Hypernatremia ICD Codes: E87.0 - Hyperosmolality and hypernatremia SNOMED: 281475228 (3) UTI (urinary tract infection) ICD Codes: N39.0 - Urinary tract infection, site not specified SNOMED: 53607839, 656943993 Qualifiers: Qualified Codes: N30.00 - Acute cystitis without hematuria (4) Severe sepsis ICD Codes: A41.9 - Sepsis, unspecified organism; R65.20 - Severe sepsis without septic shock SNOMED: 91534954, 729033008 (5) HCAP (healthcare-associated pneumonia) ICD Codes: J18.9 - Pneumonia, unspecified organism SNOMED: 659137591, 421570607 (6) DARRIAN (acute kidney injury) ICD Codes: N17.9 - Acute kidney failure, unspecified SNOMED: 48531637, 8524431 (7) Hypokalemia ICD Codes: E87.6 - Hypokalemia SNOMED: 14058905 (8) Stage IV decubitus ulcer ICD Codes: L89.94 - Pressure ulcer of unspecified site, stage 4 SNOMED: 560998497 Status: unchanged Assessment/Plan: This Is a 63-year-old male with a past medical history of CVA status post trach and PEG with chronic indwelling Naik secondary to neurogenic bladder, diabetes mellitus type 2, multiple ulcers including stage IV decubitus ulcer presenting with altered mental status, HAP, Severe sepsis, hypernatremia, and CAUTI ( present on admission) #Severe sepsis (tachycardia, WBC, altered mental status, elevated lactate), secondary to HCAP and UTI #Healthcare associated pneumonia #CAUTI (present on admission) #Chronic indwelling Naik secondary to neurogenic bladder #Stage IV decubitus ulcer, does not appear to be source -Admitted to telemetry -Blood cultures x2 -Sputum culture -Follow urine culture -Urine Legionella -Appreciate general surgery recommendations for evaluation of decubitus ulcer: Dr. Raza -Check ESR and CRP -Trend lactate -Vancomycin per pharmacy (01/02 - ) -Zosyn (01/02 - ) -LR 75 cc/hr, will change to free water through peg due to persistent hypernatremia (Has normal BP and no need at the moment for colloids) -2D echocardiogram #Hypernatremia. Corrected sodium 175 on admission. currently 169 #Elevated chloride #Severe dehydration #Hypokalemia > Free water deficit of 10 L on admission, currently about 7 L -Free water via PEG of 250 cc q4 hour -Trend BMP every 6 hours -Goal to correct no more than 6-8 MEQ per day -replace via peg #Hyperglycemia #Diabetes mellitus type 2 -Does not appear patient is on any long-acting insulin at the facility -Accu-Cheks [id number] -SSI -Hypoglycemia protocol -May initiate long-acting insulin depending on 24-hour insulin requirement #History of CVA #Dysphasia #Status post PEG #History of tracheostomy -Tube feeds -Elevate head of bed -aspirin 81mg daily -patient not on statin. Unclear reason #Stage IV decubitus ulcer, present on admission #Bilateral foot ulcers present on admission -Wound consult #Severe protein calorie malnutrition -nutrition consult -continue tube feeds FENPPX DVTPPX: heparin SQ GI PPX: Protonix Fluids: as above Diet: Tube feeds Lines: peripheral PT/OT: pending Code status: Full Dispo: Back to snf Reason for Continued Hospitalization:Sepsis, hypernatremia, hyperglycemia 40 minutes spent on this encounter. Discussed with RN and Ed staff. > 50% spent on counseling and care coordination. I spent an additional 31 minutes reviewing chart and hospitalization. Time of note may not reflect time patient was seen. Subjective Date patient seen: Jan 03, 2019 ROS Limited/Unobtainable: Yes Allergies: Coded Allergies: No Known Allergies (Unverified , 09/29/17) Subjective patient non verbal. in no acute distress. No overnight events. Sodium remains high but improving. Telemetry reviewed SR with PVCs Objective Last 24 Hour Vital Signs Date Time Temp Pulse Resp B/P (MAP) Pulse Ox O2 Delivery O2 Flow Rate FiO2 01/03/19 12:00 98.1 79 20 123/79 (94) 100 01/03/19 11:47 91 01/03/19 09:00 Room Air 01/03/19 08:00 97.7 93 20 129/68 (88) 100 01/03/19 07:56 92 20 100 Nasal Cannula 2.0 28 83 20 99 01/03/19 07:56 99 Nasal Cannula 2.0 28 01/03/19 07:52 89 01/03/19 04:00 90 01/03/19 04:00 97.8 94 19 121/74 (90) 99 01/03/19 01:29 91 20 100 Nasal Cannula 2.0 28 89 20 99 01/03/19 00:00 88 01/03/19 00:00 97.8 98 19 128/72 (90) 98 01/02/19 21:00 Room Air 01/02/19 20:00 94 01/02/19 20:00 97.5 96 19 124/75 (91) 99 01/02/19 19:26 99 Nasal Cannula 2.0 28 01/02/19 19:25 90 20 100 Nasal Cannula 2.0 28 88 20 99 01/02/19 16:03 98 01/02/19 16:00 97.7 97 20 121/76 (91) 98 Intake and Output 01/02/19 01/03/19 19:00 07:00 Output Total 400 ml 200 ml Balance -400 ml -200 ml Output Urine Total 400 ml 200 ml # Voids 1 Laboratory Tests 01/03/19 01:00: Sodium Level 167*H, Potassium Level 3.6, Chloride Level 129H, Carbon Dioxide Level 37H, Anion Gap 3L, Blood Urea Nitrogen 37H, Creatinine 0.8, Estimat Glomerular Filtration Rate > 60, Glucose Level 246H, Calcium Level 9.0 01/03/19 06:59: Sodium Level 166*H, Potassium Level 3.4L, Chloride Level 128H, Carbon Dioxide Level 35H, Anion Gap 3L, Blood Urea Nitrogen 34H, Creatinine 0.8, Estimat Glomerular Filtration Rate > 60, Glucose Level 238H, Calcium Level 9.2, White Blood Count 9.1, Red Blood Count 3.54L, Hemoglobin 9.5L, Hematocrit 30.8L, Mean Corpuscular Volume 87, Mean Corpuscular Hemoglobin 26.8L, Mean Corpuscular Hemoglobin Concent 30.8L, Red Cell Distribution Width 16.7H, Platelet Count 248 , Mean Platelet Volume 9.5, Neutrophils (%) (Auto) , Lymphocytes (%) (Auto) , Monocytes (%) (Auto) , Eosinophils (%) (Auto) , Basophils (%) (Auto) , Differential Total Cells Counted 100, Neutrophils % (Manual) 64, Lymphocytes % ( Manual) 23, Monocytes % (Manual) 3, Eosinophils % (Manual) 10H, Basophils % ( Manual) 0, Band Neutrophils 0, Platelet Estimate Adequate, Platelet Morphology Normal, Anisocytosis 1+, Hemoglobin A1c 8.0H, Phosphorus Level 3.3, Total Bilirubin 0.3, Aspartate Amino Transf (AST/SGOT) 20, Alanine Aminotransferase ( ALT/SGPT) 24, Alkaline Phosphatase 83, Total Protein 7.2, Albumin 2.0L, Globulin 5.2, Albumin/Globulin Ratio 0.4L Height (Feet): 5 Height (Inches): 8.00 Weight (Pounds): 160 Objective HEENT: normocephalic, atraumatic, anicteric Neck: non-tender, trach Respiratory/Chest: chest wall non-tender, lungs clear, normal breath sounds, other - Mild respiratory distress Cardiovascular/Chest: normal peripheral pulses, normal rate, regular rhythm, no JVD Abdomen: normal bowel sounds, non tender, soft, feeding tube, other - G-tube in place area is clean dry and intact Extremities: normal range of motion, non-tender, normal inspection, other - No lower extremity edema bilaterally Skin Exam: normal pigmentation, warm/dry 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 Jan 03, 2019 13:59
[2019-01-03 16:00] VITALS: BP 103/57
[2019-01-03 16:12] LABS: ANION GAP 4 mmol/L (5-15); BLOOD UREA NITROGEN 32 mg/dL (7-18); CALCIUM 8.8 MG/DL (8.5-10.1); CARBON DIOXIDE 34 MMOL/L (21-32); CHLORIDE 129 MMOL/L (98-107); CREATININE 0.8 MG/DL (0.55-1.30); POTASSIUM 4.2 MMOL/L (3.5-5.1)
--- NOTE | 2019-01-03 16:27 | NUR ---
*-*INSURANCE *-*. ALL AVAILABLE CLINICALS HAVE BEEN FAXED TO: [facility] Ref#[id number] CM: Zoran
--- NOTE | 2019-01-03 16:27 | NUR ---
CASE MANAGEMENT:REVIEW 01/03/19 SI: SEPSIS. PNA S/P TRACH AND PEG. NEUROGENIC BLADDER STAGE IV DECUB ULCERS 97.7 89 20 103/57 100% ON 2L/NC IS: IVF@100/HR IV VANCOMYCIN Q12 IV ZOSYN Q8HRS DUONEB HHN Q6HRS RTC : TELEMETRY UNIT DCP: FROM [facility]
[2019-01-03 16:29] LABS: SODIUM 167 MMOL/L (136-145)
--- NOTE | 2019-01-03 19:20 | NUR ---
HAND-OFF: Report given to MARIA ELENA Fay.
--- NOTE | 2019-01-03 19:39 | NUR ---
NURSE NOTES: Received pt from MARIA ELENA Pak. Pt is awake and resting in bed in no acute distress. Pt nonverbal. IV site intact. Naik catheter intact and draining. Gtube intact and patent, feeding at 35cc/hr. patient repositioned on side, bilateral heels elevated. Bed locked in lowest position, call light within reach. Will continue with plan of care.
[2019-01-03 19:59] LABS: ANION GAP 2 mmol/L (5-15); BLOOD UREA NITROGEN 29 mg/dL (7-18); CALCIUM 8.8 MG/DL (8.5-10.1); CARBON DIOXIDE 34 MMOL/L (21-32); CHLORIDE 126 MMOL/L (98-107); CREATININE 0.8 MG/DL (0.55-1.30); POTASSIUM 3.6 MMOL/L (3.5-5.1)
[2019-01-03 20:00] VITALS: BP 124/64
[2019-01-03 20:09] LABS: SODIUM 162 MMOL/L (136-145)
[2019-01-03] MEDS: Vancomycin 1gm/D5W 275ml IVPB SCH ×2 (21:14)
[2019-01-03] MEDS: Sennosides 8.6mg tab GT SCH (21:14)
--- NOTE | 2019-01-03 22:00 | NUR ---
Flushed G-tube 250ml per md order
[2019-01-04] VITALS: BP 105/62
[2019-01-04] MEDS: Albuterol/Ipratropium 3ml neb HHN SCH ×4 (00:01→19:47)
[2019-01-04] MEDS: NovoLOG Insulin Flexpen SUBQ SCH ×4 (00:10→17:40)
[2019-01-04 01:44] LABS: ANION GAP 4 mmol/L (5-15); BLOOD UREA NITROGEN 26 mg/dL (7-18); CALCIUM 8.8 MG/DL (8.5-10.1); CARBON DIOXIDE 31 MMOL/L (21-32); CHLORIDE 124 MMOL/L (98-107); CREATININE 0.8 MG/DL (0.55-1.30); POTASSIUM 3.2 MMOL/L (3.5-5.1); SODIUM 159 MMOL/L (136-145)
--- NOTE | 2019-01-04 02:00 | NUR ---
Flushed G-tube 250ml per md order
[2019-01-04 04:00] VITALS: BP 100/53
--- NOTE | 2019-01-04 06:00 | NUR ---
Flushed G-tube 250ml per md order
[2019-01-04] MEDS: Zosyn 4.5gm q8h **Extended infusion IVPB SCH ×6 (06:01→22:28)
--- NOTE | 2019-01-04 07:18 | NUR ---
HAND-OFF: Report given to MARIA ELENA Quintero. Endorsed plan of care.
--- NOTE | 2019-01-04 07:19 | NUR ---
NURSE NOTES: I received the patient resting in bed. Patient does not display any signs of distress or SOB. Bed in the lowest position and call light within reach. I will continue to monitor the patient and implement care.
--- NOTE | 2019-01-04 07:28 | Cardiology Report ---
APPROVED REPORT EKG Measurement Heart [id number] [id number] Sinus tachycardia Nonspecific ST and T wave abnormality Abnormal ECG
[2019-01-04 08:00] VITALS: BP 102/53
[2019-01-04 08:43] LABS: BASOPHILS % (AUTO) 1.4 % (0.0-2.0); EOSINOPHILS % (AUTO) 13.6 % (0.0-3.0); HEMATOCRIT 28.9 % (42.0-52.0); LYMPHOCYTES % (AUTO) 21.7 % (20.0-45.0); MEAN CORPUSCULAR VOLUME 88 FL (80-99); MONOCYTES % (AUTO) 3.2 % (1.0-10.0); NEUTROPHILS % (AUTO) 60.1 % (45.0-75.0); PLATELET COUNT 208 K/UL (150-450); RED CELL DISTRIBUTION WIDTH 16.7 % (11.6-14.8); WHITE BLOOD COUNT 8.1 K/UL (4.8-10.8)
[2019-01-04] MEDS: Pantoprazole Inj IVP SCH (09:03)
[2019-01-04] MEDS: Midodrine 10mg tab GT SCH ×3 (09:03→17:39)
[2019-01-04] MEDS: Aspirin Baby 81mg NG SCH (09:04)
[2019-01-04] MEDS: Heparin 5000 units/ml inj SUBQ SCH ×2 (09:04→20:40)
[2019-01-04 09:20] LABS: ALBUMIN 1.8 G/DL (3.4-5.0); ALKALINE PHOSPHATASE 77 U/L (46-116); ANION GAP 3 mmol/L (5-15); ASPARTATE AMINO TRANSFERASE 25 U/L (15-37); BILIRUBIN,TOTAL 0.3 MG/DL (0.2-1.0); BLOOD UREA NITROGEN 25 mg/dL (7-18); CALCIUM 8.6 MG/DL (8.5-10.1); CARBON DIOXIDE 34 MMOL/L (21-32); CHLORIDE 123 MMOL/L (98-107); CREATININE 0.8 MG/DL (0.55-1.30); PHOSPHORUS 3.4 MG/DL (2.5-4.9); POTASSIUM 3.2 MMOL/L (3.5-5.1); SODIUM 160 MMOL/L (136-145)
[2019-01-04 09:31] LABS: ALANINE AMINOTRANSFERASE 22 U/L (12-78)
[2019-01-04] MEDS: Vancomycin 1gm/D5W 275ml IVPB SCH ×4 (10:50→20:39)
--- NOTE | 2019-01-04 11:13 | NUR ---
*-*INSURANCE *-*. UPDATED CLINICALS HAVE BEEN FAXED TO: [facility] Ref#[id number] CM: Zoran #[phone] Addendum: 01/04/19 at 1115 by BHARATI BAUER CM SPOKE TO SARATH:ZORAN AND HE STATED HE HAS BEEN RECEIVING CLINICALS...
[2019-01-04 12:00] VITALS: BP 104/61
--- NOTE | 2019-01-04 12:19 | NUR ---
CASE MANAGEMENT:REVIEW 01/04/19 SI: SEPSIS. PNA S/P TRACH AND PEG. NEUROGENIC BLADDER STAGE IV DECUB ULCERS 97.8 71 18 102/53 100% ON 2L/NC H/H-9.0/28.9 NA+160 K-3.2 BUN+25 IS: IV VANCOMYCIN Q12 IV ZOSYN Q8HRS DUONEB HHN Q6HRS RTC : TELEMETRY UNIT DCP: FROM [facility] PLAN: FREE WATER 400CC Q4HRS VIA PEG
--- NOTE | 2019-01-04 12:51 | Surgery Progress Note ---
Surgery Progress Note Subjective Additional Comments leukocytosis resolved electrolytes still very abnormal TF at 35cc/hr more responsive today Objective Last 24 Hour Vital Signs Date Time Temp Pulse Resp B/P (MAP) Pulse Ox O2 Delivery O2 Flow Rate FiO2 01/04/19 12:00 97.0 73 20 104/61 (75) 98 01/04/19 09:00 Room Air 01/04/19 08:00 97.8 71 18 102/53 (69) 100 01/04/19 07:46 72 01/04/19 07:26 100 Nasal Cannula 2.0 28 01/04/19 07:26 80 16 100 Nasal Cannula 2.0 28 74 18 100 01/04/19 04:00 68 01/04/19 04:00 97.5 68 18 100/53 (69) 100 01/04/19 00:01 85 20 100 Nasal Cannula 2.0 28 86 20 97 01/04/19 00:00 87 01/04/19 00:00 98.0 87 20 105/62 (76) 98 01/03/19 21:00 Room Air 01/03/19 20:01 97 Nasal Cannula 2.0 28 01/03/19 20:00 82 01/03/19 20:00 98.4 82 20 124/64 (84) 100 01/03/19 20:00 89 20 99 Nasal Cannula 2.0 28 86 20 97 01/03/19 16:00 97.7 89 20 103/57 (72) 97 01/03/19 15:12 87 I&O Intake and Output 01/03/19 01/04/19 19:00 07:00 Output Total 600 ml 800 ml Balance -600 ml -800 ml Output Urine Total 600 ml 800 ml Dressing: saturated Wound: other Drains: other Cardiovascular: RSR Respiratory: decreased breath sounds Abdomen: soft, non-tender, present bowel sounds Extremities: no cyanosis, other Laboratory Tests Test 01/03/19 15:20 01/03/19 19:30 01/04/19 01:00 01/04/19 07:00 Sodium Level 167 MMOL/L (136-145) *H 162 MMOL/L (136-145) *H 159 MMOL/L (136-145) H 160 MMOL/L (136-145) H Potassium Level 4.2 MMOL/L (3.5-5.1) 3.6 MMOL/L (3.5-5.1) 3.2 MMOL/L (3.5-5.1) L 3.2 MMOL/L (3.5-5.1) L Chloride Level 129 MMOL/L (98-107) H 126 MMOL/L (98-107) H 124 MMOL/L (98-107) H 123 MMOL/L (98-107) H Carbon Dioxide Level 34 MMOL/L (21-32) H 34 MMOL/L (21-32) H 31 MMOL/L (21-32) 34 MMOL/L (21-32) H Anion Gap 4 mmol/L (5-15) L 2 mmol/L (5-15) L 4 mmol/L (5-15) L 3 mmol/L (5-15) L Blood Urea Nitrogen 32 mg/dL (7-18) H 29 mg/dL (7-18) H 26 mg/dL (7-18) H 25 mg/dL (7-18) H Creatinine 0.8 MG/DL (0.55-1.30) 0.8 MG/DL (0.55-1.30) 0.8 MG/DL (0.55-1.30) 0.8 MG/DL (0.55-1.30) Estimat Glomerular Filtration Rate > 60 mL/min (>60) > 60 mL/min (>60) > 60 mL/min (>60) > 60 mL/min (>60) Glucose Level 224 MG/DL (74-106) H 188 MG/DL (74-106) H 210 MG/DL (74-106) H 169 MG/DL (74-106) H Calcium Level 8.8 MG/DL (8.5-10.1) 8.8 MG/DL (8.5-10.1) 8.8 MG/DL (8.5-10.1) 8.6 MG/DL (8.5-10.1) Vancomycin Level Trough 25.4 ug/mL (5.0-12.0) H White Blood Count 8.1 K/UL (4.8-10.8) Red Blood Count 3.30 M/UL (4.70-6.10) L Hemoglobin 9.0 G/DL (14.2-18.0) L Hematocrit 28.9 % (42.0-52.0) L Mean Corpuscular Volume 88 FL (80-99) Mean Corpuscular Hemoglobin 27.2 PG (27.0-31.0) Mean Corpuscular Hemoglobin Concent 31.0 G/DL (32.0-36.0) L Red Cell Distribution Width 16.7 % (11.6-14.8) H Platelet Count 208 K/UL (150-450) Mean Platelet Volume 9.4 FL (6.5-10.1) Neutrophils (%) (Auto) 60.1 % (45.0-75.0) Lymphocytes (%) (Auto) 21.7 % (20.0-45.0) Monocytes (%) (Auto) 3.2 % (1.0-10.0) Eosinophils (%) (Auto) 13.6 % (0.0-3.0) H Basophils (%) (Auto) 1.4 % (0.0-2.0) Phosphorus Level 3.4 MG/DL (2.5-4.9) Total Bilirubin 0.3 MG/DL (0.2-1.0) Aspartate Amino Transf (AST/SGOT) 25 U/L (15-37) Alanine Aminotransferase (ALT/SGPT) 22 U/L (12-78) Alkaline Phosphatase 77 U/L (46-116) Total Protein 6.7 G/DL (6.4-8.2) Albumin 1.8 G/DL (3.4-5.0) L Globulin 4.9 g/dL Plan Problems: (1) Sepsis Assessment & Plan: leukocytosis improving abnormal labs labs improved electrolytes abnormal - replaced exam as below unlikely etiology of sepsis wounds IV Abx as per ID AM labs trend labs will follow with recs thank you (2) Leukocytosis (3) Stage IV decubitus ulcer Assessment & Plan: Pt presented on admission with multiple pressure injuries.Full thickness sacral pressure injury with undermining. Base of wound is beefy red. Bone is palpable.Borders red and flat. Darker skin tone periwound without erythema or induration. (L)8cm x (W)7.5cm x(D)3cm ,Undermining 7-5 by 5.5cm@ 8 o'clock. No odor noted .Small amt serous exudate noted. Partially opened DTPI L ischium.Base of wound dark brown. Areas that are fluctuant, with scattered openings that are viable within base of wound.Periwound without erythema or induration. (L)7.5cm x (W)4.2cmPartial thickness pressure injury noted to posterior Upper L thigh (L)0.6cm x (W) 0.5cm.Base of wound is moist -viable.No odor or exudate noted. Dry peeling skin without erythema periwound. Partially opened DTPI lateral L Tibia. Base of wound with 40% pink granulation otherwise with 60% soft urbina slough. Small amt non-odorous exudate noted. (L) 4.3cm x (W)4.2cm. L heel pressure injury with 80% mixed dry eschar and slough,20% pink granulation. No odor or exudate noted.Periwound is fluctuant but blanchable. Dark skin tone without induration or fluctuance noted to R ischium. Scattered partial thickness openings within affected area of discoloration.Full thickness pressure injury Lateral R malleolus. Base of wound erythematous with trace amt Biofilm.Small amt non-odorous serous exudate noted.Erythema noted along borders and periwound.No odor noted.(L)1cm x (W)1.2cm. Blood filled blister noted to lateral R heel. Base of wound is purple and fluctuant. Non-blanchable erythema with fluctuance noted periwound. (L)(L)2cm x (W)2.5cm. Tx.Plan: Cleanse sacral wound with Saline. Loosely pack with Hydrogel impregnated kerlix. Apply Triad paste periwound. Cover with Optifoam drsg. Change Daily and PRN. Cleanse L Ischium with Saline. Apply Triad Paste. Cover with Optifoam drsg. Change every 3 days and prn. Cleanse lateral tibia with Saline. Apply Therahoney. Cavilon Skin Barrier Periwound. Cover with Optifoam drsg. Change every 3 days and prn. Cleanse L heel with Saline. Apply Therahoney. Apply Cavilon Skin Barrier periwound. Cover with Optifoam drsg. Change every 3 days and prn. Apply Triad Paste to R ischium . Cover with Optifoam drsg. Change every 3 days and prn. Cleanse R lateral Malleolus with Saline. Apply Therahoney. Apply Cavilon Periwound. Cover with Optifoam drsg Change every 3 days and prn. Apply Cavilon Skin Barrier to R heel . Cover with Optifoam drsg. Change every 7 days and prn. APM/SELENA Mattress overlay. Reposition at least every 2hours or as tolerated. Tonio Raza Jan 04, 2019 12:51
[2019-01-04 13:15] LABS: ANION GAP 4 mmol/L (5-15); BLOOD UREA NITROGEN 26 mg/dL (7-18); CARBON DIOXIDE 33 MMOL/L (21-32); CHLORIDE 122 MMOL/L (98-107); CREATININE 0.8 MG/DL (0.55-1.30); SODIUM 159 MMOL/L (136-145)
[2019-01-04] MEDS ORDERED: LORazepam 1mg tab GT PRN (14:15)
[2019-01-04] MEDS ORDERED: Acetaminophen 650mg/20.3ml GT PRN ×2 (14:15)
[2019-01-04] MEDS ORDERED: Miralax 17gm pkt GT PRN (14:15)
[2019-01-04] MEDS ORDERED: DiphenhydrAMINE 25mg/10ml Elixir GT PRN (14:15)
--- NOTE | 2019-01-04 15:47 | General Progress Note ---
Assessment/Plan Problem List: (1) Dehydration ICD Codes: E86.0 - Dehydration SNOMED: 99502090 (2) Hypernatremia ICD Codes: E87.0 - Hyperosmolality and hypernatremia SNOMED: 923108308 (3) UTI (urinary tract infection) ICD Codes: N39.0 - Urinary tract infection, site not specified SNOMED: 73461211, 316790817 Qualifiers: Qualified Codes: N30.00 - Acute cystitis without hematuria (4) Severe sepsis ICD Codes: A41.9 - Sepsis, unspecified organism; R65.20 - Severe sepsis without septic shock SNOMED: 13326089, 616451388 (5) HCAP (healthcare-associated pneumonia) ICD Codes: J18.9 - Pneumonia, unspecified organism SNOMED: 925915292, 936392897 (6) DARRIAN (acute kidney injury) ICD Codes: N17.9 - Acute kidney failure, unspecified SNOMED: 38571494, 4000880 (7) Hypokalemia ICD Codes: E87.6 - Hypokalemia SNOMED: 32014824 (8) Stage IV decubitus ulcer ICD Codes: L89.94 - Pressure ulcer of unspecified site, stage 4 SNOMED: 783329700 Status: unchanged Assessment/Plan: This Is a 63-year-old male with a past medical history of CVA status post trach and PEG with chronic indwelling Naik secondary to neurogenic bladder, diabetes mellitus type 2, multiple ulcers including stage IV decubitus ulcer presenting with altered mental status, HAP, Severe sepsis, hypernatremia, and CAUTI ( present on admission) #Severe sepsis (tachycardia, WBC, altered mental status, elevated lactate), secondary to HCAP and UTI #Healthcare associated pneumonia #CAUTI (present on admission) #Chronic indwelling Naik secondary to neurogenic bladder #Stage IV decubitus ulcer, does not appear to be source -Admitted to telemetry -Blood cultures x2, negative to date -Sputum culture: group G strep, gram negative bacillus, pending sensitivities -Follow urine culture, Proteus Mirabilis sensitive to zosyn, ertapenem, Amikacin -Urine Legionella -Appreciate general surgery recommendations for evaluation of decubitus ulcer: Dr. Raza -Check ESR and CRP -Trend lactate -Vancomycin per pharmacy (11/3 - ) -Zosyn (01/02 - ) -s/p LR 75 cc/hr, will change to free water through peg due to severe hypernatremia (Has normal BP and no need at the moment for colloids) -2D echocardiogram #Hypernatremia. Corrected sodium 175 on admission. currently 159. free water deficit 5 L #Elevated chloride #Severe dehydration #Hypokalemia > Free water deficit of 10 L on admission, currently about 5 L -Free water via PEG of 250 ml q4 hour, increase to 400 ml q4hr -Trend BMP every 6 hours -Goal to correct no more than 6-8 MEQ per day -K: replace via peg #Hyperglycemia #Diabetes mellitus type 2 -Does not appear patient is on any long-acting insulin at the facility -Accu-Cheks [id number] -SSI -Hypoglycemia protocol -May initiate long-acting insulin depending on 24-hour insulin requirement #History of CVA #Dysphasia #Status post PEG #History of tracheostomy -Tube feeds -Elevate head of bed -aspirin 81mg daily -patient not on statin. Unclear reason #Stage IV decubitus ulcer, present on admission #Bilateral foot ulcers present on admission -Wound consult #Severe protein calorie malnutrition -nutrition consult -continue tube feeds FENPPX DVTPPX: heparin SQ GI PPX: Protonix Fluids: as above Diet: Tube feeds Lines: peripheral PT/OT: pending Code status: Full Dispo: Back to snf Reason for Continued Hospitalization:Sepsis, hypernatremia, hyperglycemia 40 minutes spent on this encounter. Discussed with RN and Ed staff. > 50% spent on counseling and care coordination. Time of note may not reflect time patient was seen. Subjective Date patient seen: Jan 04, 2019 ROS Limited/Unobtainable: Yes Allergies: Coded Allergies: No Known Allergies (Unverified , 09/29/17) Subjective patient non verbal. in no acute distress. No overnight events. Sodium remains high but improving. More responsive today Objective Last 24 Hour Vital Signs Date Time Temp Pulse Resp B/P (MAP) Pulse Ox O2 Delivery O2 Flow Rate FiO2 01/04/19 13:02 62 18 100 Nasal Cannula 2.0 28 60 16 97 01/04/19 12:42 66 01/04/19 12:00 97.0 73 20 104/61 (75) 98 01/04/19 09:00 Room Air 01/04/19 08:00 97.8 71 18 102/53 (69) 100 01/04/19 07:46 72 01/04/19 07:26 100 Nasal Cannula 2.0 28 01/04/19 07:26 80 16 100 Nasal Cannula 2.0 28 74 18 100 01/04/19 04:00 68 01/04/19 04:00 97.5 68 18 100/53 (69) 100 01/04/19 00:01 85 20 100 Nasal Cannula 2.0 28 86 20 97 01/04/19 00:00 87 01/04/19 00:00 98.0 87 20 105/62 (76) 98 01/03/19 21:00 Room Air 01/03/19 20:01 97 Nasal Cannula 2.0 28 01/03/19 20:00 82 01/03/19 20:00 98.4 82 20 124/64 (84) 100 01/03/19 20:00 89 20 99 Nasal Cannula 2.0 28 86 20 97 01/03/19 16:00 97.7 89 20 103/57 (72) 97 Intake and Output 01/03/19 01/04/19 19:00 07:00 Output Total 600 ml 800 ml Balance -600 ml -800 ml Output Urine Total 600 ml 800 ml Laboratory Tests 01/03/19 19:30: Sodium Level 162*H, Potassium Level 3.6, Chloride Level 126H, Carbon Dioxide Level 34H, Anion Gap 2L, Blood Urea Nitrogen 29H, Creatinine 0.8, Estimat Glomerular Filtration Rate > 60, Glucose Level 188H, Calcium Level 8.8, Vancomycin Level Trough 25.4H 01/04/19 01:00: Sodium Level 159H, Potassium Level 3.2L, Chloride Level 124H, Carbon Dioxide Level 31, Anion Gap 4L, Blood Urea Nitrogen 26H, Creatinine 0.8, Estimat Glomerular Filtration Rate > 60, Glucose Level 210H, Calcium Level 8.8 01/04/19 07:00: Sodium Level 160H, Potassium Level 3.2L, Chloride Level 123H, Carbon Dioxide Level 34H, Anion Gap 3L, Blood Urea Nitrogen 25H, Creatinine 0.8, Estimat Glomerular Filtration Rate > 60, Glucose Level 169H, Calcium Level 8.6, White Blood Count 8.1, Red Blood Count 3.30L, Hemoglobin 9.0L, Hematocrit 28.9L, Mean Corpuscular Volume 88, Mean Corpuscular Hemoglobin 27.2, Mean Corpuscular Hemoglobin Concent 31.0L, Red Cell Distribution Width 16.7H, Platelet Count 208 , Mean Platelet Volume 9.4, Neutrophils (%) (Auto) 60.1, Lymphocytes (%) (Auto) 21.7, Monocytes (%) (Auto) 3.2, Eosinophils (%) (Auto) 13.6H, Basophils (%) ( Auto) 1.4, Phosphorus Level 3.4, Total Bilirubin 0.3, Aspartate Amino Transf ( AST/SGOT) 25, Alanine Aminotransferase (ALT/SGPT) 22, Alkaline Phosphatase 77, Total Protein 6.7, Albumin 1.8L, Globulin 4.9 01/04/19 12:53: Sodium Level 159H, Potassium Level 4.0, Chloride Level 122H, Carbon Dioxide Level 33H, Anion Gap 4L, Blood Urea Nitrogen 26H, Creatinine 0.8, Estimat Glomerular Filtration Rate > 60, Glucose Level 175H, Calcium Level 9.0 Height (Feet): 5 Height (Inches): 8.00 Weight (Pounds): 160 Objective General: non verbal, more responsive HEENT: normocephalic, atraumatic, anicteric Neck: non-tender, trach Respiratory/Chest: chest wall non-tender, lungs clear, normal breath sounds, other - Mild respiratory distress Cardiovascular/Chest: normal peripheral pulses, normal rate, regular rhythm, no JVD Abdomen: normal bowel sounds, non tender, soft, feeding tube, other - G-tube in place area is clean dry and intact Extremities: normal range of motion, non-tender, normal inspection, other - No lower extremity edema bilaterally Skin Exam: normal pigmentation, warm/dry, sacral ulcers Neurologic: awake, unable to fully assess Lymphatic: anterior cervical - No lymphadenopathy Musculoskeletal: normal muscle bulk, no effusion Frank Toribio M.D. Jan 04, 2019 15:47
[2019-01-04 16:00] VITALS: BP 103/57
--- NOTE | 2019-01-04 17:26 | NUR ---
NURSE NOTES:WOUND CARE NOTES:Pt presented on admission with multiple pressure injuries.Non-blanching erythema noted to clefts of R and L ears. Full thickness sacral pressure injury with undermining. Beefy talat granulation at base of wound.Scattered slough along borders of wound. No odor noted Small amt serous exudate noted.(L)6cm x (W07.5cm x (D)3cm, undermining clockwise 8-4 by 5cm @40'clock. Periwound erythematous, macerated with additional scattered wounds with biofilm. An area of maroon discoloration with surrounding non-blanching erythema noted to lateral L tibia (L)2cm x (W)0.4cm. Resolving pressure injuries (2 sites) noted to R ischium:Most inner aspect pressure injury (L)1cm x (W)1.4cm. Base of wound moist -viable with surrounding dry pink epithelial. Second wound in close proximity Moist and viable with surrounding pink epithelial, bordered by darker skin tone without erythema or induration. (L)2.5cm x (W)3cm. Dry scaly skin noted to R and L heels . Both heels are soft and boggy but both heels are blanchable. Nail matrix L 1st and L 2nd metatarsals are necrotic but dry. Tx.Plan: Cleanse Sacral wound with Saline. Loosely pack with Hydrogel impregnated Kerlix. Apply Moisture Barrier Paste periwound. Cover with Optifoam drsg. Change Daily and prn. Apply Moisture Barrier Paste to L ischium. Cover with Optifoam drsg. Change every 3 days and prn. Apply Cavilon Skin Barrier to Lateral L tibia. Cover with Optifoam drsg. Change every 7 days and prn. Apply Cavilon Skin Barrier to both heels. Cover each heel with Optifoam drsg. Change every 7 days and prn. Swab L1st and L 2nd metatarsals with Betadine Daily. Air Fluidized mattress. Reposition at least every 2hours or as tolerated. Off-load heels with pillow.
--- NOTE | 2019-01-04 19:08 | NUR ---
HAND-OFF: Report given to Rafa Monk RN.
--- NOTE | 2019-01-04 19:20 | NUR ---
NURSE NOTES: Received pt from MARIA ELENA Quintero. Pt is awake and resting in bed. IV sites intact and patent. Gtube feeding intact and patent. Naik catheter intact and draining. HOb elevated, BLE elevated. Bed locked in lowest position, bed alarm on, call light within reach. Will continue with plan of care.
[2019-01-04 20:00] VITALS: BP 125/69
[2019-01-04 20:21] LABS: ANION GAP 3 mmol/L (5-15); BLOOD UREA NITROGEN 22 mg/dL (7-18); CALCIUM 8.4 MG/DL (8.5-10.1); CARBON DIOXIDE 33 MMOL/L (21-32); CHLORIDE 119 MMOL/L (98-107); CREATININE 0.8 MG/DL (0.55-1.30); POTASSIUM 4.3 MMOL/L (3.5-5.1); SODIUM 155 MMOL/L (136-145)
[2019-01-04] MEDS: Sennosides 8.6mg tab GT SCH (20:39)
[2019-01-05] VITALS: BP 107/57
[2019-01-05] MEDS: NovoLOG Insulin Flexpen SUBQ SCH ×5 (00:17→23:53)
[2019-01-05] MEDS: Albuterol/Ipratropium 3ml neb HHN SCH ×4 (00:42→20:02)
[2019-01-05 04:00] VITALS: BP 109/62
[2019-01-05] MEDS: Zosyn 4.5gm q8h **Extended infusion IVPB SCH ×6 (06:14→22:12)
[2019-01-05 06:30] LABS: BASOPHILS % (AUTO) 1.1 % (0.0-2.0); EOSINOPHILS % (AUTO) 9.7 % (0.0-3.0); HEMATOCRIT 32.6 % (42.0-52.0); HEMOGLOBIN 10.1 G/DL (14.2-18.0); LYMPHOCYTES % (AUTO) 19.8 % (20.0-45.0); MEAN CORPUSCULAR VOLUME 87 FL (80-99); MONOCYTES % (AUTO) 2.9 % (1.0-10.0); NEUTROPHILS % (AUTO) 66.5 % (45.0-75.0); PLATELET COUNT 244 K/UL (150-450); RED BLOOD COUNT 3.75 M/UL (4.70-6.10); RED CELL DISTRIBUTION WIDTH 16.4 % (11.6-14.8); WHITE BLOOD COUNT 9.3 K/UL (4.8-10.8)
[2019-01-05 06:32] LABS: ANION GAP 2 mmol/L (5-15); BLOOD UREA NITROGEN 18 mg/dL (7-18); CALCIUM 8.6 MG/DL (8.5-10.1); CARBON DIOXIDE 33 MMOL/L (21-32); CHLORIDE 115 MMOL/L (98-107); CREATININE 0.9 MG/DL (0.55-1.30); POTASSIUM 3.5 MMOL/L (3.5-5.1); SODIUM 150 MMOL/L (136-145)
--- NOTE | 2019-01-05 07:23 | NUR ---
NURSE NOTES: I received the patient awake and resting in bed. Patient alert to name. Bed in the lowest position and call light within reach. Patient does not display any signs of distress or SOB. I will continue to monitor the patient and implement care.
--- NOTE | 2019-01-05 07:23 | NUR ---
HAND-OFF: Report given to MARIA ELENA Quintero. Endorsed plan of care. pt stable resting in bed in no distress.
[2019-01-05 08:00] VITALS: BP 102/64
--- NOTE | 2019-01-05 09:12 | General Progress Note ---
Assessment/Plan Problem List: (1) Dehydration ICD Codes: E86.0 - Dehydration SNOMED: 42528132 (2) Hypernatremia ICD Codes: E87.0 - Hyperosmolality and hypernatremia SNOMED: 210058488 (3) UTI (urinary tract infection) ICD Codes: N39.0 - Urinary tract infection, site not specified SNOMED: 28284760, 853552501 Qualifiers: Qualified Codes: N30.00 - Acute cystitis without hematuria (4) Severe sepsis ICD Codes: A41.9 - Sepsis, unspecified organism; R65.20 - Severe sepsis without septic shock SNOMED: 93053413, 534934145 (5) HCAP (healthcare-associated pneumonia) ICD Codes: J18.9 - Pneumonia, unspecified organism SNOMED: 593994785, 356609359 (6) DARRIAN (acute kidney injury) ICD Codes: N17.9 - Acute kidney failure, unspecified SNOMED: 88037377, 1688604 (7) Hypokalemia ICD Codes: E87.6 - Hypokalemia SNOMED: 50024561 (8) Stage IV decubitus ulcer ICD Codes: L89.94 - Pressure ulcer of unspecified site, stage 4 SNOMED: 897946910 Status: unchanged Assessment/Plan: This Is a 63-year-old male with a past medical history of CVA status post trach and PEG with chronic indwelling Naik secondary to neurogenic bladder, diabetes mellitus type 2, multiple ulcers including stage IV decubitus ulcer presenting with altered mental status, HAP, Severe sepsis, hypernatremia, and CAUTI ( present on admission) #Severe sepsis (tachycardia, WBC, altered mental status, elevated lactate), secondary to HCAP and UTI- resolving #Healthcare associated pneumonia #CAUTI (present on admission) #Chronic indwelling Naik secondary to neurogenic bladder #Stage IV decubitus ulcer, does not appear to be the source -Admitted to telemetry -Blood cultures x2, negative to date -Sputum culture: group G strep, gram negative bacillus, pending sensitivities -urine culture, Proteus Mirabilis sensitive to Zosyn, ertapenem, Amikacin -Urine Legionella -Appreciate general surgery recommendations for evaluation of decubitus ulcer: Dr. Raza -Vancomycin per pharmacy (01/02 - ) -Zosyn (01/02 - ) -s/p LR 75 cc/hr, will change to free water through peg due to severe hypernatremia (Has normal BP and no need at the moment for colloids) -2D echocardiogram--> mild diastolic dysfunction #Hypernatremia. Corrected sodium 175 on admission. currently 150. free water deficit 2.5L #Elevated chloride #Severe dehydration #Hypokalemia > Free water deficit of 10 L on admission, currently about 5 L -Free water via PEG of 400 ml q4 hour, will consider reducing tomorrow -Trend BMP every 12 hours -Goal to correct no more than 6-8 MEQ per day -K: replace via peg #Hyperglycemia #Diabetes mellitus type 2 -Does not appear patient is on any long-acting insulin at the facility -Accu-Cheks [id number] -SSI -Hypoglycemia protocol -May initiate long-acting insulin depending on 24-hour insulin requirement #History of CVA #Dysphasia #Status post PEG #History of tracheostomy -Tube feeds -Elevate head of bed -aspirin 81mg daily -patient not on statin. Unclear reason #Stage IV decubitus ulcer, present on admission #Bilateral foot ulcers present on admission -Wound consult #Severe protein calorie malnutrition -nutrition consult -continue tube feeds FENPPX DVTPPX: heparin SQ GI PPX: Protonix Fluids: as above Diet: Tube feeds Lines: peripheral PT/OT: pending Code status: Full Dispo: Back to snf Reason for Continued Hospitalization:Sepsis, hypernatremia, hyperglycemia 40 minutes spent on this encounter. Discussed with RN and Ed staff. > 50% spent on counseling and care coordination. d/w RN Time of note may not reflect time patient was seen. Subjective Date patient seen: Jan 05, 2019 ROS Limited/Unobtainable: Yes Allergies: Coded Allergies: No Known Allergies (Unverified , 09/29/17) Subjective patient non verbal. in no acute distress. No overnight events. Sodium remains however with much improvement. More responsive today, trying to communicate. Objective Last 24 Hour Vital Signs Date Time Temp Pulse Resp B/P (MAP) Pulse Ox O2 Delivery O2 Flow Rate FiO2 01/05/19 08:00 98.0 76 18 102/64 (77) 100 01/05/19 07:51 92 Nasal Cannula 2.0 28 01/05/19 07:51 76 18 92 Nasal Cannula 2.0 28 01/05/19 04:00 72 01/05/19 04:00 98.0 72 20 109/62 (78) 98 01/05/19 00:42 74 18 100 Nasal Cannula 2.0 28 73 18 96 01/05/19 00:00 67 01/05/19 00:00 98.5 67 18 107/57 (74) 99 01/04/19 21:00 Room Air 01/04/19 20:00 71 01/04/19 20:00 98.0 71 18 125/69 (87) 98 01/04/19 19:51 100 Nasal Cannula 2.0 28 01/04/19 19:51 67 18 100 Nasal Cannula 2.0 28 64 18 98 01/04/19 16:03 98 01/04/19 16:00 97.8 74 18 103/57 (72) 97 01/04/19 13:02 62 18 100 Nasal Cannula 2.0 28 60 16 97 01/04/19 12:42 66 01/04/19 12:00 97.0 73 20 104/61 (75) 98 Intake and Output 01/04/19 01/05/19 19:00 07:00 Intake Total 1620 ml 1550 ml Output Total 700 ml Balance 920 ml 1550 ml Intake Free Water 1200 ml 1200 ml Tube Feeding 420 ml 350 ml Output Urine Total 700 ml Laboratory Tests 01/04/19 12:53: Sodium Level 159H, Potassium Level 4.0, Chloride Level 122H, Carbon Dioxide Level 33H, Anion Gap 4L, Blood Urea Nitrogen 26H, Creatinine 0.8, Estimat Glomerular Filtration Rate > 60, Glucose Level 175H, Calcium Level 9.0 01/04/19 19:20: Sodium Level 155H, Potassium Level 4.3, Chloride Level 119H, Carbon Dioxide Level 33H, Anion Gap 3L, Blood Urea Nitrogen 22H, Creatinine 0.8, Estimat Glomerular Filtration Rate > 60, Glucose Level 152H, Calcium Level 8.4L 01/05/19 06:12: Sodium Level 150H, Potassium Level 3.5, Chloride Level 115H, Carbon Dioxide Level 33H, Anion Gap 2L, Blood Urea Nitrogen 18, Creatinine 0.9, Estimat Glomerular Filtration Rate > 60, Glucose Level 147H, Calcium Level 8.6, White Blood Count 9.3, Red Blood Count 3.75L, Hemoglobin 10.1L, Hematocrit 32.6L, Mean Corpuscular Volume 87, Mean Corpuscular Hemoglobin 27.0, Mean Corpuscular Hemoglobin Concent 31.1L, Red Cell Distribution Width 16.4H, Platelet Count 244 , Mean Platelet Volume 9.7, Neutrophils (%) (Auto) 66.5, Lymphocytes (%) (Auto) 19.8L, Monocytes (%) (Auto) 2.9, Eosinophils (%) (Auto) 9.7H, Basophils (%) ( Auto) 1.1 Height (Feet): 5 Height (Inches): 8.00 Weight (Pounds): 172 Objective General: non verbal, more responsive HEENT: normocephalic, atraumatic, anicteric Neck: non-tender, trach Respiratory/Chest: chest wall non-tender, lungs clear, normal breath sounds, other - Mild respiratory distress Cardiovascular/Chest: normal peripheral pulses, normal rate, regular rhythm, no JVD Abdomen: normal bowel sounds, non tender, soft, feeding tube, other - G-tube in place area is clean dry and intact Extremities: normal range of motion, non-tender, normal inspection, other - No lower extremity edema bilaterally Skin Exam: normal pigmentation, warm/dry, sacral ulcers Neurologic: awake, unable to fully assess Lymphatic: anterior cervical - No lymphadenopathy Musculoskeletal: normal muscle bulk, no effusion Frank Toribio M.D. Jan 05, 2019 09:12
[2019-01-05] MEDS: Vancomycin 1gm/D5W 275ml IVPB SCH ×2 (09:23)
[2019-01-05] MEDS: Aspirin Baby 81mg NG SCH (09:23)
[2019-01-05] MEDS: Midodrine 10mg tab GT SCH ×3 (09:23→17:11)
[2019-01-05] MEDS: Heparin 5000 units/ml inj SUBQ SCH ×2 (09:24→20:31)
--- NOTE | 2019-01-05 11:28 | NUR ---
CASE MANAGEMENT:REVIEW 01/05/19 SI: SEPSIS. PNA S/P TRACH AND PEG. NEUROGENIC BLADDER STAGE IV DECUB ULCERS 98.0 76 18 102/64 100% ON RA H/H-10.1/32.6 NA+150 IS: IV VANCOMYCIN Q12 IV ZOSYN Q8HRS DUONEB HHN Q6HRS RTC : TELEMETRY UNIT DCP: FROM [facility] PLAN: FREE WATER 400CC Q4HRS VIA PEG
[2019-01-05 12:00] VITALS: BP 107/64
--- NOTE | 2019-01-05 14:48 | NUR ---
*-*INSURANCE *-*. UPDATED CLINICALS HAVE BEEN FAXED TO: [facility] Ref#[id number] CM: Zoran #[phone]
--- NOTE | 2019-01-05 15:32 | NUR ---
HAND-OFF: Report given to MARIA ELENA Allen.
[2019-01-05 16:00] VITALS: BP 129/68
--- NOTE | 2019-01-05 16:59 | Surgery Progress Note ---
Surgery Progress Note Subjective Additional Comments Patient seen and examined bedside. No acute events. Labs noted and stable. Exam stable and if not improved as he is more awake alert and responsive. Able to follow some commands. Trach site noted and new dressings applied. Objective Last 24 Hour Vital Signs Date Time Temp Pulse Resp B/P (MAP) Pulse Ox O2 Delivery O2 Flow Rate FiO2 01/05/19 16:00 97.9 73 18 129/68 (88) 92 83 01/05/19 13:24 72 18 94 Room Air 21.0 21 01/05/19 12:00 97.7 73 19 107/64 (78) 96 01/05/19 11:36 67 01/05/19 09:00 Room Air 01/05/19 08:00 98.0 76 18 102/64 (77) 100 01/05/19 07:51 92 Nasal Cannula 2.0 28 01/05/19 07:51 82 18 96 Nasal Cannula 2.0 28 76 18 92 01/05/19 07:41 77 01/05/19 04:00 72 01/05/19 04:00 98.0 72 20 109/62 (78) 98 01/05/19 00:42 74 18 100 Nasal Cannula 2.0 28 73 18 96 01/05/19 00:00 67 01/05/19 00:00 98.5 67 18 107/57 (74) 99 01/04/19 21:00 Room Air 01/04/19 20:00 71 01/04/19 20:00 98.0 71 18 125/69 (87) 98 01/04/19 19:51 100 Nasal Cannula 2.0 28 01/04/19 19:51 67 18 100 Nasal Cannula 2.0 28 64 18 98 I&O Intake and Output 01/04/19 01/05/19 19:00 07:00 Intake Total 1620 ml 1550 ml Output Total 700 ml Balance 920 ml 1550 ml Intake Free Water 1200 ml 1200 ml Tube Feeding 420 ml 350 ml Output Urine Total 700 ml Dressing: dry Wound: clean Cardiovascular: RSR Respiratory: decreased breath sounds Abdomen: soft, present bowel sounds, non-distended Extremities: no edema, no tenderness, no cyanosis Laboratory Tests Test 01/04/19 19:20 01/05/19 06:12 Sodium Level 155 MMOL/L (136-145) H 150 MMOL/L (136-145) H Potassium Level 4.3 MMOL/L (3.5-5.1) 3.5 MMOL/L (3.5-5.1) Chloride Level 119 MMOL/L (98-107) H 115 MMOL/L (98-107) H Carbon Dioxide Level 33 MMOL/L (21-32) H 33 MMOL/L (21-32) H Anion Gap 3 mmol/L (5-15) L 2 mmol/L (5-15) L Blood Urea Nitrogen 22 mg/dL (7-18) H 18 mg/dL (7-18) Creatinine 0.8 MG/DL (0.55-1.30) 0.9 MG/DL (0.55-1.30) Estimat Glomerular Filtration Rate > 60 mL/min (>60) > 60 mL/min (>60) Glucose Level 152 MG/DL (74-106) H 147 MG/DL (74-106) H Calcium Level 8.4 MG/DL (8.5-10.1) L 8.6 MG/DL (8.5-10.1) White Blood Count 9.3 K/UL (4.8-10.8) Red Blood Count 3.75 M/UL (4.70-6.10) L Hemoglobin 10.1 G/DL (14.2-18.0) L Hematocrit 32.6 % (42.0-52.0) L Mean Corpuscular Volume 87 FL (80-99) Mean Corpuscular Hemoglobin 27.0 PG (27.0-31.0) Mean Corpuscular Hemoglobin Concent 31.1 G/DL (32.0-36.0) L Red Cell Distribution Width 16.4 % (11.6-14.8) H Platelet Count 244 K/UL (150-450) Mean Platelet Volume 9.7 FL (6.5-10.1) Neutrophils (%) (Auto) 66.5 % (45.0-75.0) Lymphocytes (%) (Auto) 19.8 % (20.0-45.0) L Monocytes (%) (Auto) 2.9 % (1.0-10.0) Eosinophils (%) (Auto) 9.7 % (0.0-3.0) H Basophils (%) (Auto) 1.1 % (0.0-2.0) Plan Problems: (1) Sepsis Assessment & Plan: leukocytosis improving abnormal labs labs improved electrolytes abnormal - replaced exam as below unlikely etiology of sepsis wounds IV Abx as per ID AM labs dressings prior trach site prn until dry. trend labs will follow with recs thank you (2) Leukocytosis (3) Stage IV decubitus ulcer Assessment & Plan: Pt presented on admission with multiple pressure injuries.Non-blanching erythema noted to clefts of R and L ears. Full thickness sacral pressure injury with undermining. Beefy talat granulation at base of wound.Scattered slough along borders of wound. No odor noted Small amt serous exudate noted.(L)6cm x (W07.5cm x (D)3cm, undermining clockwise 8-4 by 5cm @40'clock. Periwound erythematous, macerated with additional scattered wounds with biofilm. An area of maroon discoloration with surrounding non-blanching erythema noted to lateral L tibia (L)2cm x (W)0.4cm. Resolving pressure injuries (2 sites) noted to R ischium:Most inner aspect pressure injury (L)1cm x (W)1.4cm. Base of wound moist -viable with surrounding dry pink epithelial. Second wound in close proximity Moist and viable with surrounding pink epithelial, bordered by darker skin tone without erythema or induration. (L)2.5cm x (W)3cm. Dry scaly skin noted to R and L heels . Both heels are soft and boggy but both heels are blanchable. Nail matrix L 1st and L 2nd metatarsals are necrotic but dry. Tx.Plan: Cleanse Sacral wound with Saline. Loosely pack with Hydrogel impregnated Kerlix. Apply Moisture Barrier Paste periwound. Cover with Optifoam drsg. Change Daily and prn. Apply Moisture Barrier Paste to L ischium. Cover with Optifoam drsg. Change every 3 days and prn. Apply Cavilon Skin Barrier to Lateral L tibia. Cover with Optifoam drsg. Change every 7 days and prn. Apply Cavilon Skin Barrier to both heels. Cover each heel with Optifoam drsg. Change every 7 days and prn. Swab L1st and L 2nd metatarsals with Betadine Daily. Air Fluidized mattress. Reposition at least every 2hours or as tolerated. Off-load heels with pillow. Tonio Raza Jan 05, 2019 16:58
--- NOTE | 2019-01-05 19:25 | NUR ---
HAND-OFF: Report given to MARIA ELENA Floyd. PT stable.
--- NOTE | 2019-01-05 20:00 | NUR ---
NURSE NOTES: Report received from Tiffany ARREDONDO. Patient is observed in bed, asleep but arousable by voice. Respiratory even and unlabored. IV site is asymptomatic, patent, and intact. Denies pain at this time. GTF is running at a prescribed rate. Bed is in lowest position with side rails up x2 and brakes are engaged. Bed alarm is on. HOB is elevated. Aspiration precautions implemented. Will continue to monitor.
[2019-01-05] MEDS: Sennosides 8.6mg tab GT SCH (20:30)
[2019-01-06 00:08] VITALS: BP 123/64
--- NOTE | 2019-01-06 01:19 | NUR ---
NURSE NOTES: Patient is asleep but arousable by voice. No s/s of acute distress noted at this time. HOB is elevated. Patient was able to tolerate gtube flush. VSS. Will continue to monitor.
[2019-01-06] MEDS: Albuterol/Ipratropium 3ml neb HHN SCH ×4 (01:42→19:21)
[2019-01-06 04:00] VITALS: BP 136/90
[2019-01-06] MEDS: NovoLOG Insulin Flexpen SUBQ SCH ×4 (05:58→23:37)
[2019-01-06] MEDS: Zosyn 4.5gm q8h **Extended infusion IVPB SCH ×6 (05:58→22:49)
--- NOTE | 2019-01-06 07:14 | NUR ---
HAND-OFF: Report given to Teresa ARREDONDO. Patient is in stable condition.
[2019-01-06 07:29] LABS: ANION GAP 5 mmol/L (5-15); BLOOD UREA NITROGEN 13 mg/dL (7-18); CALCIUM 8.7 MG/DL (8.5-10.1); CARBON DIOXIDE 29 MMOL/L (21-32); CHLORIDE 112 MMOL/L (98-107); CREATININE 0.8 MG/DL (0.55-1.30); POTASSIUM 3.9 MMOL/L (3.5-5.1); SODIUM 146 MMOL/L (136-145)
--- NOTE | 2019-01-06 07:56 | NUR ---
NURSE NOTES: Received patient from Ashely Floyd. Patient is awake in bed nods and shakes head to questions. patient NPO. TF with glucerna @35 ML/hr. No complain of pain or discomfort this time. fall precautions in place. Call prince within patients reached. will follow.
[2019-01-06 08:00] VITALS: BP 119/75
[2019-01-06] MEDS: Midodrine 10mg tab GT SCH ×3 (09:31→17:34)
[2019-01-06] MEDS: Aspirin Baby 81mg NG SCH (09:31)
[2019-01-06] MEDS: Heparin 5000 units/ml inj SUBQ SCH ×2 (09:33→21:58)
[2019-01-06] MEDS: Vancomycin 500mg/D5W 110ml IVPB SCH ×4 (09:35→22:41)
--- NOTE | 2019-01-06 10:29 | General Progress Note ---
Assessment/Plan Problem List: (1) Dehydration ICD Codes: E86.0 - Dehydration SNOMED: 67289423 (2) Hypernatremia ICD Codes: E87.0 - Hyperosmolality and hypernatremia SNOMED: 845705982 (3) UTI (urinary tract infection) ICD Codes: N39.0 - Urinary tract infection, site not specified SNOMED: 64983919, 985145192 Qualifiers: Qualified Codes: N30.00 - Acute cystitis without hematuria (4) Severe sepsis ICD Codes: A41.9 - Sepsis, unspecified organism; R65.20 - Severe sepsis without septic shock SNOMED: 13935019, 621867351 (5) HCAP (healthcare-associated pneumonia) ICD Codes: J18.9 - Pneumonia, unspecified organism SNOMED: 720347879, 435250353 (6) DARRIAN (acute kidney injury) ICD Codes: N17.9 - Acute kidney failure, unspecified SNOMED: 21597838, 3939498 (7) Hypokalemia ICD Codes: E87.6 - Hypokalemia SNOMED: 75923380 (8) Stage IV decubitus ulcer ICD Codes: L89.94 - Pressure ulcer of unspecified site, stage 4 SNOMED: 736452697 Status: unchanged Assessment/Plan: This Is a 63-year-old male with a past medical history of CVA status post trach and PEG with chronic indwelling Naik secondary to neurogenic bladder, diabetes mellitus type 2, multiple ulcers including stage IV decubitus ulcer presenting with altered mental status, HAP, Severe sepsis, hypernatremia, and CAUTI ( present on admission) #Severe sepsis (tachycardia, WBC, altered mental status, elevated lactate), secondary to HCAP and UTI- resolving #Healthcare associated pneumonia #CAUTI (present on admission) #Chronic indwelling Naik secondary to neurogenic bladder #Stage IV decubitus ulcer, does not appear to be the source -Admitted to telemetry -Blood cultures x2, negative to date -Sputum culture: group G strep, pseudomonas aeruginosa sensitive to Zosyn -urine culture, Proteus Mirabilis sensitive to Zosyn, ertapenem, Amikacin -Urine Legionella -Appreciate general surgery recommendations for evaluation of decubitus ulcer: Dr. Raza -Vancomycin per pharmacy (01/02 - ) -Zosyn (01/02 - ) -s/p LR 75 cc/hr, will change to free water through peg due to severe hypernatremia (Has normal BP and no need at the moment for colloids) -2D echocardiogram--> mild diastolic dysfunction #Hypernatremia. Corrected sodium 175 on admission. currently 146. free water deficit 1.6L #Elevated chloride #Severe dehydration #Hypokalemia > Free water deficit of 10 L on admission, currently about 1.6 L -Free water via PEG of 400 ml q4 hour, consider reducing to 250 ml q4hr -Trend BMP daily now -Goal to correct no more than 6-8 MEQ per day -K: replace via peg #Hyperglycemia #Diabetes mellitus type 2 -Does not appear patient is on any long-acting insulin at the facility -Accu-Cheks [id number] -SSI -Hypoglycemia protocol -May initiate long-acting insulin depending on 24-hour insulin requirement #History of CVA #Dysphasia #Status post PEG #History of tracheostomy -Tube feeds -Elevate head of bed -aspirin 81mg daily -patient not on statin. Unclear reason #Stage IV decubitus ulcer, present on admission #Bilateral foot ulcers present on admission -Wound consult #Severe protein calorie malnutrition -nutrition consult -continue tube feeds FENPPX DVTPPX: heparin SQ GI PPX: Protonix Fluids: as above Diet: Tube feeds Lines: peripheral PT/OT: pending Code status: Full Dispo: Back to snf Reason for Continued Hospitalization:Sepsis, hypernatremia, hyperglycemia, estimated discharge 01/07 40 minutes spent on this encounter. Discussed with RN and Ed staff. > 50% spent on counseling and care coordination. d/w RN Time of note may not reflect time patient was seen. Subjective Date patient seen: Jan 06, 2019 ROS Limited/Unobtainable: Yes Allergies: Coded Allergies: No Known Allergies (Unverified , 09/29/17) Subjective patient non verbal. in no acute distress. No overnight events. Sodium with much improvement. More responsive today. Objective Last 24 Hour Vital Signs Date Time Temp Pulse Resp B/P (MAP) Pulse Ox O2 Delivery O2 Flow Rate FiO2 01/06/19 09:00 Room Air 01/06/19 08:00 98.2 77 18 119/75 (90) 96 01/06/19 08:00 67 01/06/19 07:15 79 18 100 Nasal Cannula 2.0 28 78 16 99 01/06/19 07:15 99 Nasal Cannula 2.0 28 01/06/19 04:00 97.7 84 21 136/90 (105) 96 83 01/06/19 03:46 83 01/06/19 01:42 85 18 97 Nasal Cannula 2.0 28 81 16 97 01/06/19 00:08 98.0 85 21 123/64 (83) 96 83 01/05/19 23:29 75 01/05/19 21:00 Room Air 01/05/19 20:07 80 20 95 Nasal Cannula 2.0 28 79 20 95 01/05/19 20:06 95 Nasal Cannula 2.0 28 01/05/19 19:00 75 01/05/19 16:00 97.9 73 18 129/68 (88) 92 83 01/05/19 15:18 73 01/05/19 13:24 72 18 94 Room Air 21.0 21 01/05/19 12:00 97.7 73 19 107/64 (78) 96 01/05/19 11:36 67 Intake and Output 01/05/19 01/06/19 18:59 06:59 Intake Total 650.0 ml Output Total 1400 ml 1900 ml Balance -750.0 ml -1900 ml Intake Free Water 400 ml IV Total 110.0 ml Tube Feeding 140 ml Output Urine Total 1400 ml 1900 ml # Bowel Movements 3 Laboratory Tests 01/05/19 19:45: Vancomycin Level Trough 27.5H 01/06/19 06:33: Sodium Level 146H, Potassium Level 3.9, Chloride Level 112H, Carbon Dioxide Level 29, Anion Gap 5, Blood Urea Nitrogen 13, Creatinine 0.8, Estimat Glomerular Filtration Rate > 60, Glucose Level 166H, Calcium Level 8.7, Random Vancomycin Level 19.6 Height (Feet): 5 Height (Inches): 8.00 Weight (Pounds): 172 Objective General: non verbal, more responsive HEENT: normocephalic, atraumatic, anicteric Neck: non-tender, trach Respiratory/Chest: chest wall non-tender, lungs clear, normal breath sounds, other - Mild respiratory distress Cardiovascular/Chest: normal peripheral pulses, normal rate, regular rhythm, no JVD Abdomen: normal bowel sounds, non tender, soft, feeding tube, other - G-tube in place area is clean dry and intact Extremities: normal range of motion, non-tender, normal inspection, other - No lower extremity edema bilaterally Skin Exam: normal pigmentation, warm/dry, sacral ulcers Neurologic: awake, unable to fully assess Lymphatic: anterior cervical - No lymphadenopathy Musculoskeletal: normal muscle bulk, no effusion Frank Toribio M.D. Jan 06, 2019 10:29
--- NOTE | 2019-01-06 11:16 | NUR ---
RD ASSESSMENT & RECOMMENDATIONS SEE CARE ACTIVITY FOR COMPLETE ASSESSMENT DAILY ESTIMATED NEEDS: Needs based on Wounds, sepsis [employer] TF/69kg 25-30 kcals/kg 7836-7878 total kcals 1.25-2 g protein/kg 86-138 g total protein 25-30 mL/kg 2235-2065 total fluid mLs NUTRITION DIAGNOSIS: 1) Increased kcal and protein needs r/t wound healing as evidenced by pt adm w/ multiple wounds, including stage 4 sacral wound, non-blanchable erythema at R and L ears, and resolving pressure injuries at R ischium. 2) Swallowing difficulty r/t dysphagia and h/o CVA as evidenced by pt is PEG dep. CURRENT TF:Glucerna 1.2 @ 35ml/hr x24 hrs ENTERAL NUTRITION RECOMMENDATIONS: Glucerna 1.2 @ 65ml/hr x 24 hrs to provide 1560ml, 1872kcal, 94g prot, 1256ml free water - Increase goal rate to 65ml/hr x 24 hrs : advance as tolerated 10ml q4-6 hrs to goal - Water flush of 200ml q 6 hrs - HOB over 30 degrees ADDITIONAL RECOMMENDATIONS: 1) Wound care: Add Rafael 1pkt BID, Vit C 250mg BID TF @ goal will provide 100% RDI Add Zn SO4 220mg daily x10 days 2) Per SNF, pt's HT=5'10", JD=[id number] 3) Monitor BGs closely: 300's and 400's upon adm -> now 100's 4) Monitor hydration status: Na trending down, BUN normalized %) Monitor lytes, replete as needed
--- NOTE | 2019-01-06 11:30 | NUR ---
NURSE NOTES: experimental machining lab manager Lyndsey made aware of possible discharge of patient tomorrow back to SNF as per Dr. Toribio.
--- NOTE | 2019-01-06 11:30 | NUR ---
DISCHARGE PLANNING FAXED CLINICALS TO [facility] T: [phone] ANTICIPATE DISCHARGE TOMORROW
[2019-01-06 12:00] VITALS: BP 122/80
--- NOTE | 2019-01-06 12:09 | NUR ---
CASE MANAGEMENT:REVIEW 01/06/19 SI: SEPSIS. PNA NEUROGENIC BLADDER. H/O TRACH AND PEG STAGE IV DECUB ULCERS 97.4 96 20 128/83 97% ON 2L/NC NA-146 IS: IV VANCOMYCIN Q12 IV ZOSYN Q8HRS DUONEB HHN Q6HRS RTC : TELEMETRY UNIT DCP: FROM [facility] PLAN: FREE WATER 400CC Q4HRS VIA PEG DISCHARGE PLANNING ~ RETURN TO [facility] TOMORROW
[2019-01-06] MEDS ORDERED: NS 275ml ONE (15:13)
[2019-01-06] MEDS ORDERED: Tubing IV Secondary IV ONE (15:13)
--- NOTE | 2019-01-06 15:59 | Surgery Progress Note ---
Surgery Progress Note Subjective Additional Comments no acute events improving daily moving around tolerating feeds Objective Last 24 Hour Vital Signs Date Time Temp Pulse Resp B/P (MAP) Pulse Ox O2 Delivery O2 Flow Rate FiO2 01/06/19 12:35 79 18 99 Nasal Cannula 2.0 28 76 16 96 01/06/19 12:00 67 01/06/19 12:00 98.3 81 18 122/80 (94) 97 01/06/19 09:00 Room Air 01/06/19 08:00 98.2 77 18 119/75 (90) 96 01/06/19 08:00 77 01/06/19 07:15 79 18 100 Nasal Cannula 2.0 28 78 16 99 01/06/19 07:15 99 Nasal Cannula 2.0 28 01/06/19 04:00 97.7 84 21 136/90 (105) 96 83 01/06/19 03:46 83 01/06/19 01:42 85 18 97 Nasal Cannula 2.0 28 81 16 97 01/06/19 00:08 98.0 85 21 123/64 (83) 96 83 01/05/19 23:29 75 01/05/19 21:00 Room Air 01/05/19 20:07 80 20 95 Nasal Cannula 2.0 28 79 20 95 01/05/19 20:06 95 Nasal Cannula 2.0 28 01/05/19 19:00 75 01/05/19 16:00 97.9 73 18 129/68 (88) 92 83 I&O Intake and Output 01/05/19 01/06/19 19:00 07:00 Intake Total 650.0 ml Output Total 1400 ml 1900 ml Balance -750.0 ml -1900 ml Intake Free Water 400 ml IV Total 110.0 ml Tube Feeding 140 ml Output Urine Total 1400 ml 1900 ml # Bowel Movements 3 Dressing: saturated Wound: other Drains: other Cardiovascular: RSR Respiratory: decreased breath sounds Abdomen: soft, non-tender, present bowel sounds Extremities: no cyanosis Laboratory Tests Test 01/05/19 19:45 01/06/19 06:33 Vancomycin Level Trough 27.5 ug/mL (5.0-12.0) H Sodium Level 146 MMOL/L (136-145) H Potassium Level 3.9 MMOL/L (3.5-5.1) Chloride Level 112 MMOL/L (98-107) H Carbon Dioxide Level 29 MMOL/L (21-32) Anion Gap 5 mmol/L (5-15) Blood Urea Nitrogen 13 mg/dL (7-18) Creatinine 0.8 MG/DL (0.55-1.30) Estimat Glomerular Filtration Rate > 60 mL/min (>60) Glucose Level 166 MG/DL (74-106) H Calcium Level 8.7 MG/DL (8.5-10.1) Random Vancomycin Level 19.6 ug/mL Plan Problems: (1) Sepsis Assessment & Plan: leukocytosis improving abnormal labs labs improved electrolytes abnormal - replaced exam as below unlikely etiology of sepsis wounds IV Abx as per ID AM labs dressings prior trach site prn until dry. trend labs will follow with recs thank you (2) Leukocytosis (3) Stage IV decubitus ulcer Assessment & Plan: Pt presented on admission with multiple pressure injuries.Non-blanching erythema noted to clefts of R and L ears. Full thickness sacral pressure injury with undermining. Beefy talat granulation at base of wound.Scattered slough along borders of wound. No odor noted Small amt serous exudate noted.(L)6cm x (W07.5cm x (D)3cm, undermining clockwise 8-4 by 5cm @40'clock. Periwound erythematous, macerated with additional scattered wounds with biofilm. An area of maroon discoloration with surrounding non-blanching erythema noted to lateral L tibia (L)2cm x (W)0.4cm. Resolving pressure injuries (2 sites) noted to R ischium:Most inner aspect pressure injury (L)1cm x (W)1.4cm. Base of wound moist -viable with surrounding dry pink epithelial. Second wound in close proximity Moist and viable with surrounding pink epithelial, bordered by darker skin tone without erythema or induration. (L)2.5cm x (W)3cm. Dry scaly skin noted to R and L heels . Both heels are soft and boggy but both heels are blanchable. Nail matrix L 1st and L 2nd metatarsals are necrotic but dry. Tx.Plan: Cleanse Sacral wound with Saline. Loosely pack with Hydrogel impregnated Kerlix. Apply Moisture Barrier Paste periwound. Cover with Optifoam drsg. Change Daily and prn. Apply Moisture Barrier Paste to L ischium. Cover with Optifoam drsg. Change every 3 days and prn. Apply Cavilon Skin Barrier to Lateral L tibia. Cover with Optifoam drsg. Change every 7 days and prn. Apply Cavilon Skin Barrier to both heels. Cover each heel with Optifoam drsg. Change every 7 days and prn. Swab L1st and L 2nd metatarsals with Betadine Daily. Air Fluidized mattress. Reposition at least every 2hours or as tolerated. Off-load heels with pillow. Tonio Raza Jan 06, 2019 15:59
[2019-01-06 16:00] VITALS: BP 119/69
--- NOTE | 2019-01-06 19:30 | NUR ---
NURSE NOTES: Received patient from Teresa ARREDONDO. Patient on 2L NC, no signs of respiratory distress. 35ml of residual from Gtube, on glucerna 1.2 at 55ml/hr. Naik catheter intact, patent. Bed in low position, locked, bed alarm on, call light within reach.
--- NOTE | 2019-01-06 19:53 | NUR ---
HAND-OFF: Report given to Ashely Lewis. Plan of endorsed.
[2019-01-06 20:00] VITALS: BP_SYST 11; BP_SYST 111; BP_DIAS 52
[2019-01-06] MEDS: Sennosides 8.6mg tab GT SCH (21:50)
--- NOTE | 2019-01-06 23:30 | NUR ---
NURSE NOTES: No residual from Gtube, increased tube feeding rate to 65ml/hr.
[2019-01-07] VITALS: BP 110/65
[2019-01-07] MEDS: Albuterol/Ipratropium 3ml neb HHN SCH ×2 (01:19→07:28)
--- NOTE | 2019-01-07 03:21 | NUR ---
HAND-OFF: Report given to Edison ARREDONDO. Patient awake in bed, HOB elevated >30 degrees. Naik catheter intact. Bed in low position, locked, bed alarm on, call light within reach. Wound dressings changed. 22 gauge IV on right forearm intact, patent. Plan of care endorsed.
[2019-01-07 04:00] VITALS: BP 104/58
[2019-01-07] MEDS: NovoLOG Insulin Flexpen SUBQ SCH (06:09)
[2019-01-07 06:50] LABS: ANION GAP 4 mmol/L (5-15); BLOOD UREA NITROGEN 13 mg/dL (7-18); CALCIUM 8.2 MG/DL (8.5-10.1); CARBON DIOXIDE 31 MMOL/L (21-32); CHLORIDE 112 MMOL/L (98-107); CREATININE 0.7 MG/DL (0.55-1.30); POTASSIUM 3.4 MMOL/L (3.5-5.1); SODIUM 147 MMOL/L (136-145)
--- NOTE | 2019-01-07 07:05 | NUR ---
HAND-OFF: Report given to MARIA ELENA Moore.
--- NOTE | 2019-01-07 07:35 | NUR ---
NURSE NOTES: Received patient from Taj Hogan. patient is awake in bed. No complain of pain or discomfort. fall precautions in place. Call placed to pharmacy will administer missed dose of Zosyn @ 0600. will follow.
[2019-01-07] MEDS: Zosyn 4.5gm q8h **Extended infusion IVPB SCH ×2 (07:39)
[2019-01-07 08:00] VITALS: BP 95/59
--- NOTE | 2019-01-07 08:06 | Discharge Summary ---
Discharge Summary Hospital Course Date of Admission Jan 01, 2019 at 23:26 Date of Discharge 01/07/2019 Admitting Diagnosis sepsis, pneumonia HPI Gerard Aldridge is a 63 year old male who was admitted on Jan 01, 2019 at 23:26 for Sepsis, Pneumonia Consultations general surgery; Dr. Raza Hospital Course This Is a 63-year-old male with a past medical history of CVA status post trach and PEG with chronic indwelling Naik secondary to neurogenic bladder, diabetes mellitus type 2, multiple ulcers including stage IV decubitus ulcer presenting with altered mental status, HAP, Severe sepsis, hypernatremia, and CAUTI ( present on admission), resolved now. Today patient is awake and alert. Lung: cta bl, +sacral decub, heart: s1s2, no m/r/g, ext: no edema #Severe sepsis (tachycardia, WBC, altered mental status, elevated lactate), secondary to HCAP and UTI- resolved #Healthcare associated pneumonia #CAUTI (present on admission) #Chronic indwelling Naik secondary to neurogenic bladder #Stage IV decubitus ulcer, does not appear to be the source -Admitted to telemetry -Blood cultures x2, negative to date -Sputum culture: group G strep, pseudomonas aeruginosa sensitive to Zosyn -urine culture, Proteus Mirabilis sensitive to Zosyn, ertapenem, Amikacin -Urine Legionella -Appreciate general surgery recommendations for evaluation of decubitus ulcer: Dr. Raza -Vancomycin per pharmacy (01/02 - 01/07) -Zosyn (01/02 -01/07 ) -s/p LR 75 cc/hr, will change to free water through peg due to severe hypernatremia (Has normal BP and no need at the moment for colloids) -2D echocardiogram--> mild diastolic dysfunction #Hypernatremia. Corrected sodium 175 on admission. currently 146. free water deficit 1.6L #Elevated chloride #Severe dehydration #Hypokalemia > Free water deficit of 10 L on admission- sodium 146 now -Free water via PEG of 350 ml q4 hour -Trend BMP daily now -Goal to correct no more than 6-8 MEQ per day -K: replace via peg #Hyperglycemia #Diabetes mellitus type 2 -Accu-Cheks [id number] -SSI -Hypoglycemia protocol #History of CVA #Dysphasia #Status post PEG #History of tracheostomy -Tube feeds -Elevate head of bed -aspirin 81mg daily -patient not on statin. Unclear reason #Stage IV decubitus ulcer, present on admission #Bilateral foot ulcers present on admission -Wound consult #Severe protein calorie malnutrition -nutrition consult -continue tube feeds FENPPX DVTPPX: heparin SQ GI PPX: Protonix Fluids: as above Diet: Tube feeds Lines: peripheral PT/OT: pending Code status: Full Dispo: Back to [facility] 35 minutes spent on this encounter. Discussed with RN and Ed staff. > 50% spent on counseling and care coordination. d/w RN Time of note may not reflect time patient was seen. Discharge Medications New Medications: Insulin Aspart (Novolog Flexpen) 100 Unit/1 Ml Insuln.pen 0 UNITS SUBQ Q6HR for 30 Days, #1 EA Potassium Chloride (K-Tab ER) 20 Meq Tablet.er 20 MEQ ORAL DAILY for 30 Days, #30 TAB Continued Medications: Acetaminophen (Tylenol) 325 Mg Tablet 650 MG GT Q4HR PRN for Prn Headache/Temp > 101, #30 TAB 0 Refills (This prescription has been renewed) Acetaminophen (Tylenol) 325 Mg Tablet 650 MG GT Q4HR PRN for Pain Scale (3-5), #30 TAB 0 Refills (This prescription has been renewed) Amino Acids/Protein Hydrolys (Pro-Stat Liquid) 30 Ml Liquid.pkt 30 ML GT DAILY for wound management, ML (This prescription has been renewed) Aspirin* (Aspir 81*) 81 Mg Tablet. 81 MG GT DAILY for cva prophylaxis, TAB (This prescription has been renewed) Bisacodyl* (Dulcolax*) 5 Mg Tablet. 10 MG GT ONCE for constipation,mom ineffecitve, #4 TAB 0 Refills (This prescription has been renewed) Clonidine Hcl* (Catapres*) 0.1 Mg Tablet 0.1 MG ORAL EVERY 6 HOURS for htn (sbp >160), TAB (This prescription has been renewed) Cran/Vitc/Mannose/Inulin/Brom (Uti-Stat Liquid) 3,875 Mg/30 Ml Liquid 3875 MG GT EVERY 12 HOURS for uti prophylaxis, ML (This prescription has been renewed) Diphenhydramine Hcl* (Benadryl*) 25 Mg Capsule 25 MG GT Q6H PRN for Itching, CAP (This prescription has been renewed) Docusate Sodium* (Colace*) 100 Mg Capsule 100 MG GT DAILY for stool softener, CAP (This prescription has been renewed) Ipratropium/Albuterol Sulfate (DuoNeb 0.5-3(2.5)mg/3ml) 3 Ml Ampul.neb 3 ML HHN PRN for Shortness of Breath, EA (This prescription has been renewed) Magnesium Hydroxide* (Milk Of Magnesia*) 400 Mg/5 Ml Oral.susp 30 ML ORAL DAILY, ML Magnesium Hydroxide* (Milk Of Magnesia*) 400 Mg/5 Ml Oral.susp 30 ML GT QHS for constipation, ML (This prescription has been renewed) Midodrine (Midodrine HCl) 10 Mg Tablet 10 MG GT THREE TIMES A DAY for orthostatic hypotension, TAB (This prescription has been renewed) Multivitamin with Minerals (Multivitamins with Minerals) 1 Each Tablet 1 TAB GT DAILY for wound healing , TAB (This prescription has been renewed) Na Phos,M-B/Na Phos,Di-Ba* (Fleet Enema*) 133 Ml Enema 133 ML RECTAL DAILY for constipation, ML 0 Refills (This prescription has been renewed) Pantoprazole* (Protonix*) 40 Mg Tablet.dr 40 MG GT DAILY for gerd, TAB (This prescription has been renewed) Sennosides (Senna) 8.6 Mg Tablet 8.6 MG GT BEDTIME for bowel movement, TAB (This prescription has been renewed) Vit C/Ascorb Sod/Multivit-Min (Emergen-C 500 mg Chewable Tab) 500 Mg Tab.chew 500 MG GT DAILY for wound healing, TAB (This prescription has been renewed) Discontinued Medications: Ibuprofen (Ibuprofen) 200 Mg Capsule 600 MG GT Q6H for pain, #30 CAP 0 Refills Insulin Lispro (Humalog) 100 Unit/1 Ml Insuln.pen 0 SUBQ, #1 EA 0 Refills Discharge Condition Upon Discharge: stable Discharge Disposition Patient was discharged to [facility] Discharge Diagnoses: (1) Dehydration (2) UTI (urinary tract infection) (3) HCAP (healthcare-associated pneumonia) (4) Hypokalemia (5) Hypocalcemia (6) History of CVA (cerebrovascular accident) (7) Stage IV decubitus ulcer (8) Leukocytosis (9) Sepsis (10) Fever (11) Acute encephalopathy Frank oTribio M.D. Jan 07, 2019 08:06
[2019-01-07] MEDS: Midodrine 10mg tab GT SCH (08:39)
[2019-01-07] MEDS: Aspirin Baby 81mg NG SCH (08:39)
[2019-01-07] MEDS: Heparin 5000 units/ml inj SUBQ SCH (08:42)
--- NOTE | 2019-01-07 09:00 | NUR ---
NURSE NOTES: Received discharge order from Dr. Toribio. PAtient to b discharge back to [facility]. case folder Lyndsey made aware will follow.
[2019-01-07] MEDS: Vancomycin 500mg/D5W 110ml IVPB SCH ×2 (09:43)
--- NOTE | 2019-01-07 09:49 | NUR ---
DISCHARGE PLANNED PATIENT IS RETURNING TO [facility] (BED CONFIRMED YESTERDAY WITH DONALDO) ROOM [address] CARE HOME T: [phone] FOR NURSE TO NURSE REPORT [facility] HAS BEEN ARRANGED FOR [address] MAIL LIST LIBRARIAN
--- NOTE | 2019-01-07 10:30 | NUR ---
NURSE NOTES: awaiting patient roller picker arranged at 11:30
--- NOTE | 2019-01-07 10:30 | NUR ---
NURSE NOTES: Report given to Ada at [facility]. Saray Woody made aware of patients discharge. will follow.
[2019-01-07] MEDS ORDERED: K-TAB ER20 MEQ ORAL (10:39)
[2019-01-07] MEDS ORDERED: NOVOLOG100 UNITS1 SUBQ (10:39)
--- NOTE | 2019-01-07 10:41 | Discharge Instructions ---
Discharge Instructions Discharge Instructions Special Instructions patient should receive 350 ml free water every 4 hours via PEG to avoid extreme dehydration and hypernatremia continue tube feeds as adjusted by dietitian. bmp in 3-4 days to check serum sodium insulin lispro as ordered via sliding scale For Congestive Heart Failure Reminder Report to your physician any weight gain of 5 pounds or more in one week. Frank Toribio M.D. Jan 07, 2019 10:41
--- NOTE | 2019-01-07 12:00 | NUR ---
NURSE NOTES: Patient discharge to [facility]. picked up by 2 ambulance personnel patient stable. denies pain or discomfort. belongings sent with patient. Wound photos taken. account resolution specialist and IV removed. patient left facility in no distress.
== END 2019-01-07 11:45 | DRG 720 ==
LOC: EDBD 21:31 → EMR 22:05 → 2E 23:26 → EDBEDREQ 01-02 01:47 → 2E 01-02 02:24
DX: A41.9 Sepsis, unspecified organism (principal); R65.20 Severe sepsis without septic shock; J18.9 Pneumonia, unspecified organism; N39.0 Urinary tract infection, site not specified; N17.9 Acute kidney failure, unspecified; Y95 Nosocomial condition; E43 Unspecified severe protein-calorie malnutrition; T83.511A Infection and inflammatory reaction due to indwelling urethral catheter, initial encounter; Z86.73 Personal history of transient ischemic attack (TIA), and cerebral infarction without residual deficits; N31.9 Neuromuscular dysfunction of bladder, unspecified; E11.65 Type 2 diabetes mellitus with hyperglycemia; E87.0 Hyperosmolality and hypernatremia; E86.0 Dehydration; E83.51 Hypocalcemia; E87.6 Hypokalemia; R13.10 Dysphagia, unspecified
CPT/HCPCS: 36415; 71045; 80048; 80053; 80069; 80202; 81003; 82164; 82550; 82962; 83036; 83605; 83735; 84100; 84484; 85007; 85025; 85610; 85651; 85730; 86140; 87040; 87070; 87081; 87086; 87181; 87205; 93005; 93306; 94640; 96361; 96365; 96367; 99291; J1815; J7030; J7620; J8499

== ENCOUNTER 2019-01-30 17:20 | Inpatient (IN) | payer OTHER ==
[~2019-01-30] VITALS: Ht 165.1 cm; Wt 76.2 kg
[~2019-01-30 17:20] MED LIST changes: +ASPIR 8181 MG GT; +BENADRYL25 MG GT; +BISACODYL5 MG GT; +CATAPRES0.1 MG ORAL; +COLACE100 MG GT; +EMERGEN-C 500500 MG GT; +HUMALOG100 UNIT/3 SUBQ; +IBUPROFEN200 M2 GT; +K-TAB ER20 MEQ ORAL; +MILK OF MA400 MG/51 GT; +MULTIVITAMINS1 EA13 GT; +NOVOLOG100 UNITS1 SUBQ; +PRO-AMATINE10 MG GT; +PRO-STAT LIQUID30 ML GT; +PROTONIX40 MG GT; +SENNA8.6 M2 GT; +TYLENOL325 MG GT; +UTI-STAT L3875 MG/31 GT
--- NOTE | 2019-01-30 17:25 | NUR ---
ED Nurse Note: Patient brought into ED from [facility] for sugar of 450. patient is awake, nonverbal. patient placed on a monitor and on a hospital gown. patient has g-tube. patient came in with indwelling parks, urine bag changed.
[2019-01-30] MEDS ORDERED: Acetaminophen 650 MG SUPP RECTAL ONE (17:45)
[2019-01-30 18:05] VITALS: BP 110/66
[2019-01-30 18:26] LABS: BASOPHILS % (AUTO) 1.1 % (0.0-2.0); HEMATOCRIT 40.8 % (42.0-52.0); HEMOGLOBIN 12.2 G/DL (14.2-18.0); LYMPHOCYTES % (AUTO) 11.7 % (20.0-45.0); MEAN CORPUSCULAR VOLUME 87 FL (80-99); MONOCYTES % (AUTO) 3.7 % (1.0-10.0); NEUTROPHILS % (AUTO) 82.4 % (45.0-75.0); PLATELET COUNT 299 K/UL (150-450); RED BLOOD COUNT 4.67 M/UL (4.70-6.10); RED CELL DISTRIBUTION WIDTH 18.1 % (11.6-14.8)
[2019-01-30 18:29] LABS: ALANINE AMINOTRANSFERASE 17 U/L (12-78); ALBUMIN 2.3 G/DL (3.4-5.0); ALBUMIN/GLOBULIN RATIO 0.3 (1.0-2.7); ALKALINE PHOSPHATASE 115 U/L (46-116); ANION GAP 6 mmol/L (5-15); ASPARTATE AMINO TRANSFERASE 14 U/L (15-37); BILIRUBIN,TOTAL 0.3 MG/DL (0.2-1.0); BLOOD UREA NITROGEN 60 mg/dL (7-18); CALCIUM 9.4 MG/DL (8.5-10.1); CARBON DIOXIDE 36 MMOL/L (21-32); CHLORIDE 123 MMOL/L (98-107); POTASSIUM 3.5 MMOL/L (3.5-5.1)
[2019-01-30] MEDS ORDERED: Piperacillin/Tazobactam 3.375 GM in NS 110 ML IVPB ONE (18:30)
[2019-01-30] MEDS ORDERED: Azithromycin 500 MG in NS 275 ML IV ONE (18:30)
[2019-01-30 18:32] LABS: SODIUM 164 MMOL/L (136-145)
[2019-01-30 18:35] LABS: APPEARANCE,URINE CLEAR; BILIRUBIN, URINE NEGATIVE (NEGATIVE); GLUCOSE, URINE (UA) 2+ (NEGATIVE); KETONES,URINE 1+ (NEGATIVE); LEUKOCYTE ESTERASE ,URINE 3+ (NEGATIVE); NITRITE,URINE NEGATIVE (NEGATIVE); PH,URINE 6 (4.5-8.0); PROTEIN,URINE 4+ (NEGATIVE); UROBILINOGEN,URINE 4 MG/DL (0.0-1.0)
[2019-01-30 18:37] LABS: COLOR,URINE YELLOW
[2019-01-30] MEDS ORDERED: ZINC SULFATE220 M1 GT (18:38)
[2019-01-30] MEDS ORDERED: Insulin Human Regular 100units/ml 3ml IV ONE (18:45)
--- NOTE | 2019-01-30 19:08 | NUR ---
HAND-OFF: Report given to Elsa JUNE. endorsed all plan of care to Elsa June
[2019-01-30 19:09] VITALS: BP 130/64
--- NOTE | 2019-01-30 19:09 | NUR ---
ED Nurse Note: Received report from Juliana ARREDONDO.
--- NOTE | 2019-01-30 19:49 | Emergency Room Report ---
History of Present Illness General Chief Complaint: Generalized Weakness Source: Medical Record, EMS Present Illness HPI 63-year-old male presents to ED for evaluation. [facility]. Reported high blood sugar. History of diabetes. Also fever x1 day. Patient nonverbal at baseline. Unable to provide any additional history at this time. No reported cough or shortness of breath. No nausea or vomiting. No other aggravating relieving factors. No other associated symptoms Allergies: Coded Allergies: No Known Allergies (Unverified , 09/29/17) Patient History Past Medical History: HTN, pneumonia, CVA/TIA, dementia Past Surgical History: other - Gtube Social History: Denies: smoking, alcohol use, drug use Immunizations: UTD Reviewed Nursing Documentation: PMH: Agreed; PSxH: Agreed Nursing Documentation-PMH Past Medical History: No History, Except For Hx Cardiac Problems: Yes - cva LT side weakness, HF, hemiplegia, TIA, hyperlipidemia Hx Hypertension: Yes Hx COPD: Yes - pneumonia Hx Diabetes: Yes - DM II Hx Cancer: No Hx Gastrointestinal Problems: Yes - g-tube, uti Hx Neurological Problems: Yes - dysphagia, demenita, dysfunction of bladder Hx Cerebrovascular Accident: Yes Hx Transient Ischemic Attacks: Yes Hx Paralysis: Yes 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 Hx Dysphasia: Yes Review of Systems All Other Systems: limited Physical Exam Vital Signs Date Time Temp Pulse Resp B/P (MAP) Pulse Ox O2 Delivery O2 Flow Rate FiO2 01/30/19 17:16 100.0 125 18 115/57 (76) 97 Room Air 01/30/19 18:05 4.0 Sp02 EP Interpretation: reviewed, normal General Appearance: no apparent distress, lethargic Head: normocephalic Eyes: bilateral eye normal inspection, bilateral eye PERRL ENT: normal ENT inspection Neck: normal inspection Respiratory: crackles Cardiovascular #1: no edema, tachycardia Gastrointestinal: normal bowel sounds, non tender, soft, non-distended, no guarding, no rebound Rectal: deferred Genitourinary: no CVA tenderness Musculoskeletal: normal inspection Neurologic: other - nonverbal Psychiatric: other - nonverbal Skin: other - see nursing skin notes Lymphatic: normal inspection Procedures Critical Care Time Critical Care Time i. I feel this is a highly complex case requiring extensive working including EKG/Rhythm strip, Xray/CT/US, Blood/urine lab work, repeat exams while in ED, and administration of strong opiates/narcotics for pain control, admission to hospital or close patient follow up. Total time: 50 min bedside evaluation and treatment excludes procedures (EKG). Reason for critical care: hypernatremia, sepsis, hyperglycemia, UTI, decubitus ulcer, pneumonia Possible complications: hypotension, hypertension, ME, shock, arrhythmias, metabolic acidosis, end organ damage, respiratory failure. Interventions: Labs, IV fluids, EKG, chest x-ray, antibiotics, insulin Course: Presenting with fever, hyperglycemia. Febrile. Given Tylenol. Given IV fluids. Significant leukocytosis, sodium 164, lactic elevated, glucose greater than 400 no evidence of DKA UA positive. Pneumonia chest x-ray. Significant decubitus ulcer noted. Given 30 cc/kg fluid bolus. Given broad- spectrum antibiotics. Given insulin. Tachycardia resolving. Consultations: nursing staff, EMS, family Performed by: Dr Cerna Tolerated well condition = serious j. because of unstable vital signs this patient had a condition that could potentially threaten life or limb. I feel this is a critical patient who required my full attention while patient was considered critical. Total Critical Care Time excluding procedures was greater than 50 minutes Medical Decision Making Diagnostic Impression: Primary Impression: Sepsis Qualified Codes: A41.9 - Sepsis, unspecified organism Additional Impressions: Hyperglycemia Hypernatremia UTI (urinary tract infection) Qualified Codes: N39.0 - Urinary tract infection, site not specified Pneumonia Qualified Codes: J18.9 - Pneumonia, unspecified organism Sacral decubitus ulcer Qualified Codes: L89.159 - Pressure ulcer of sacral region, unspecified stage ER Course Hospital Course 63 yo M presents with fever, high BS Differential diagnoses include: Pneumonia, UTI, sepsis, dehydration, DKA Clinical course Patient placed on stretcher. On vacuum system tester with tachycardia. After initial history and physical, I ordered labs, IV fluids, EKG, chest x-ray, blood cultures, UA. Labs - noted leukocytosis, glucose > 400 no evidence of DKA, lactic elevated, UA + bacteria, Na 164 EKG - sinus tachycardia no acute ischemic changes inteprreted by me CXR - bilaterla infiltrates 30 cc/kg fluid bolus given. broad spectrum abx given. insulin given. Case discussed with Dr Sher and they agreed to admit patient to their service for further care and support I feel this is a highly complex case requiring extensive working including EKG/ Rhythm strip, Xray/CT/US, Blood/urine lab work, repeat exams while in ED, and administration of strong opiates/narcotics for pain control, admission to hospital or close patient follow up. Diagnosis -sepsis, hyperglycemia, hyponatremia, UTI, pneumonia, sacral decubitus ulcer Patient admitted to telemetry in serious condition Labs Test 01/30/19 17:45 01/30/19 18:45 White Blood Count 16.0 K/UL (4.8-10.8) Red Blood Count 4.67 M/UL (4.70-6.10) Hemoglobin 12.2 G/DL (14.2-18.0) Hematocrit 40.8 % (42.0-52.0) Mean Corpuscular Volume 87 FL (80-99) Mean Corpuscular Hemoglobin 26.1 PG (27.0-31.0) Mean Corpuscular Hemoglobin Concent 29.8 G/DL (32.0-36.0) Red Cell Distribution Width 18.1 % (11.6-14.8) Platelet Count 299 K/UL (150-450) Mean Platelet Volume 10.0 FL (6.5-10.1) Neutrophils (%) (Auto) 82.4 % (45.0-75.0) Lymphocytes (%) (Auto) 11.7 % (20.0-45.0) Monocytes (%) (Auto) 3.7 % (1.0-10.0) Eosinophils (%) (Auto) 1.0 % (0.0-3.0) Basophils (%) (Auto) 1.1 % (0.0-2.0) Urine Color Yellow Urine Appearance Clear Urine pH 6 (4.5-8.0) Urine Specific [place] 1.015 (1.005-1.035) Urine Protein 4+ (NEGATIVE) Urine Glucose (UA) 2+ (NEGATIVE) Urine Ketones 1+ (NEGATIVE) Urine Blood 4+ (NEGATIVE) Urine Nitrite Negative (NEGATIVE) Urine Bilirubin Negative (NEGATIVE) Urine Urobilinogen 4 MG/DL (0.0-1.0) Urine Leukocyte Esterase 3+ (NEGATIVE) Urine RBC 5-10 /HPF (0 - 0) Urine WBC 15-20 /HPF (0 - 0) Urine Squamous Epithelial Cells None /LPF (NONE/OCC) Urine Bacteria Many /HPF (NONE) Urine Fine Granular Casts 0-2 /LPF (NONE) Sodium Level 164 MMOL/L (136-145) Potassium Level 3.5 MMOL/L (3.5-5.1) Chloride Level 123 MMOL/L (98-107) Carbon Dioxide Level 36 MMOL/L (21-32) Anion Gap 6 mmol/L (5-15) Blood Urea Nitrogen 60 mg/dL (7-18) Creatinine 1.0 MG/DL (0.55-1.30) Estimat Glomerular Filtration Rate > 60 mL/min (>60) Glucose Level 402 MG/DL (74-106) Lactic Acid Level 2.60 mmol/L (0.4-2.0) 2.30 mmol/L (0.66-2.22) Calcium Level 9.4 MG/DL (8.5-10.1) Magnesium Level 2.7 MG/DL (1.8-2.4) Total Bilirubin 0.3 MG/DL (0.2-1.0) Aspartate Amino Transf (AST/SGOT) 14 U/L (15-37) Alanine Aminotransferase (ALT/SGPT) 17 U/L (12-78) Alkaline Phosphatase 115 U/L (46-116) Total Protein 9.1 G/DL (6.4-8.2) Albumin 2.3 G/DL (3.4-5.0) Globulin 6.8 g/dL Albumin/Globulin Ratio 0.3 (1.0-2.7) Acetone Level Negative (NEGATIVE) EKG Diagnostic Results Rate: tachycardiac Rhythm: NSR ST Segments: no acute changes ASA given to the pt in ED: No Rhythm Strip Diag. Results EP Interpretation: yes Rhythm: NSR, no PVC's, no ectopy Chest X-Ray Diagnostic Results Chest X-Ray Diagnostic Results : Chest X-Ray Ordered: Yes # of Views/Limited/Complete: 1 View Indication: Other - AMS EP Interpretation: Yes Interpretation: no pneumothorax, other - consolidation lower lung crawford Impression: Other - pneumonia Electronically Signed by: Electronically signed by Jose Cerna MD Last Vital Signs Date Time Temp Pulse Resp B/P (MAP) Pulse Ox O2 Delivery O2 Flow Rate FiO2 01/30/19 18:23 125 31 Nasal Cannula 4.0 01/30/19 18:05 100.0 110/66 99 Status: improved Disposition: ADMITTED INPATIENT Condition: Serious Referrals: NON PHYSICIAN (PCP) Jose Cerna MD Jan 30, 2019 19:49
--- NOTE | 2019-01-30 21:22 | NUR ---
ED Nurse Note: Report given to Lou ARREDONDO from Tele.
[2019-01-30 21:25] VITALS: BP 109/67
--- NOTE | 2019-01-30 21:25 | NUR ---
TRANSFER TO FLOOR: Patient transferred to Tele unit as ordered. Report given to Lou ARREDONDO. Pt alert and oriented x1, non verbal. On O2 tx @2L/min via nc. No SOB. Pt has GT and FC 16FR patent and draining well. On 1L NS @200ml/hr patent and infusing well. Afebrile. Med recon done. Swabs are sent. Pt doesnt have any belongings.
[2019-01-30 21:30] VITALS: BP 117/69
--- NOTE | 2019-01-30 21:30 | NUR ---
NURSE NOTES: Received report from MARIA ELENA Hunter. Patient is asleep, nonverbal, responsive to verbal and tactile stimuli, lying in semi cormier's; resting comfortably. A/Ox1. No signs of acute distress noted. On oxygen via NC @ 2LPM. With G tube patent, no gastric residual noted. Checked IV site and flushed with ongoing NS 1L @ 200mls/hr. No erythema, bleeding or infiltration noted. With parks catheter draining well to gravity. Body assessment done. Bed at lowest position, brakes on, siderails x3. Call light within reach. Vital signs taken which revealed T=96.8, HR=89, RR=16, DK=970/69, O2 sat=97%. Will continue to monitor. Paged Dr. Lindsey's office and spoke with Traci for admitting orders. Awaiting for callback.
--- NOTE | 2019-01-30 22:50 | NUR ---
NURSE NOTES: Admitting orders and verified with Dr. Soares. Noted and carried out.
[2019-01-30] MEDS ORDERED: Albuterol/Ipratropium 3ml neb HHN PRN (23:30)
[2019-01-30] MEDS ORDERED: DiphenhydrAMINE 25mg/10ml Elixir GT PRN (23:45)
[2019-01-30] MEDS ORDERED: Acetaminophen 650mg/20.3ml GT PRN ×2 (23:45)
[2019-01-31] VITALS: BP 138/87
--- NOTE | 2019-01-31 | NUR ---
NURSE NOTES: Patient noted to have an output of 30ml, greenish, bilious colored gastric output. Paged Dr. Lindsey's office and spoke with Reggie regarding patient's condition. Awaiting for callback.
--- NOTE | 2019-01-31 01:40 | NUR ---
NURSE NOTES: Per Dr. Soares, to hold G tube feeding and IV fluid NS 1L @ 70mls/hr. Noted and carried out. Will continue to monitor. Addendum: 01/31/19 at 0523 by Lou Ramos RN NS 1L @75mls/hr
[2019-01-31] MEDS: Piperacillin/Tazobactam 3.375 GM in NS 110 ML IVPB SCH ×3 (01:41→21:25)
[2019-01-31] MEDS: NovoLOG Insulin Flexpen SUBQ SCH ×5 (01:44→23:30)
[2019-01-31 04:00] VITALS: BP 127/79
[2019-01-31] MEDS ORDERED: NovoLOG Insulin Flexpen SUBQ SCH ×2 (06:30)
--- NOTE | 2019-01-31 07:15 | NUR ---
HAND-OFF: Report given to MARIA ELENA Corona. Plan of care endorsed.
[2019-01-31 07:23] LABS: BASOPHILS % (AUTO) 1.3 % (0.0-2.0); EOSINOPHILS % (AUTO) 2.8 % (0.0-3.0); HEMATOCRIT 34.5 % (42.0-52.0); HEMOGLOBIN 10.5 G/DL (14.2-18.0); LYMPHOCYTES % (AUTO) 15.5 % (20.0-45.0); MEAN CORPUSCULAR VOLUME 88 FL (80-99); MONOCYTES % (AUTO) 3.6 % (1.0-10.0); NEUTROPHILS % (AUTO) 76.8 % (45.0-75.0); PLATELET COUNT 192 K/UL (150-450); RED BLOOD COUNT 3.92 M/UL (4.70-6.10); RED CELL DISTRIBUTION WIDTH 18.3 % (11.6-14.8)
--- NOTE | 2019-01-31 07:26 | NUR ---
NURSE NOTES: Pt in bed laying right lateral, bed in low position, call light at bedside, GTube feeding stopped d/t greenish residual, pt appears to be comfortable, no pain, IV running ABX patent and asymptomatic, pt has no orientation is non-verbal, no s/s of distress or sob noted. will wait for PCP to come and assess pt to continue G-Tube feeding.
[2019-01-31 08:00] VITALS: BP 121/75
[2019-01-31 08:17] LABS: ANION GAP 2 mmol/L (5-15); BLOOD UREA NITROGEN 11 mg/dL (7-18); CARBON DIOXIDE 33 MMOL/L (21-32); CHLORIDE 105 MMOL/L (98-107); CREATININE 0.8 MG/DL (0.55-1.30); POTASSIUM 4.5 MMOL/L (3.5-5.1); SODIUM 140 MMOL/L (136-145)
--- NOTE | 2019-01-31 08:51 | History and Physical ---
History of Present Illness General Date patient seen: Jan 31, 2019 Reason for Hospitalization: Generalized Weakness Present Illness HPI patient is a poor historian. History obtained via chart review. 63-year-old male Brought in by EMS from [facility] facility. Reported high blood sugar. History of diabetes. Also fever x1 day. Patient nonverbal at baseline. Unable to provide any additional history at this time. No reported cough or shortness of breath. No nausea or vomiting. No other aggravating relieving factors. No other associated symptoms Unable to obtain surgical, family, social history as patient is nonverbal and no family available Allergies: Coded Allergies: No Known Allergies (Unverified , 09/29/17) Medication History Scheduled Amino Acids/Protein Hydrolys (Pro-Stat Liquid), 30 ML GT BID, (Reported) Ascorbic Acid* (Ascorbic Acid*), 500 MG GT DAILY, (Reported) Aspirin* (Aspir 81*), 81 MG GT DAILY, (Reported) Clonidine Hcl* (Catapres*), 0.1 MG GT EVERY 6 HOURS, (Reported) Cran/Vitc/Mannose/Inulin/Brom (Uti-Stat Liquid), 3,875 MG GT EVERY 12 HOURS, ( Reported) Docusate Sodium* (Colace*), 100 MG GT DAILY, (Reported) Magnesium Hydroxide* (Milk Of Magnesia*), 30 ML GT QHS, (Reported) Midodrine (Midodrine HCl), 10 MG GT THREE TIMES A DAY, (Reported) Multivitamin with Minerals (Multivitamins with Minerals), 1 TAB GT DAILY, ( Reported) Pantoprazole* (Protonix*), 40 MG GT DAILY, (Reported) Potassium Chloride (K-Tab ER), 20 MEQ ORAL DAILY Sennosides (Senna), 17.2 MG GT BEDTIME, (Reported) Zinc Sulfate (Zinc Sulfate*), 220 MG GT DAILY, (Reported) Scheduled PRN Acetaminophen (Tylenol), 650 MG GT Q4HR PRN for Prn Headache/Temp > 101, ( Reported) Acetaminophen (Tylenol), 650 MG GT Q4HR PRN for Pain Scale (3-5), (Reported) Bisacodyl (Bisacodyl), 10 MG RC DAILY PRN for Constipation, (Reported) Ipratropium/Albuterol Sulfate (DuoNeb 0.5-3(2.5)mg/3ml), 3 ML HHN Q6HR PRN for Shortness of Breath, (Reported) Na Phos,M-B/Na Phos,Di-Ba* (Fleet Enema*), 133 ML RECTAL QOD PRN for Constipation, (Reported) Tramadol Hcl* (Ultram*), 50 MG GT DAILY PRN for For Pain, (Reported) Miscellaneous Medications Insulin Aspart (Novolog), (Reported) Discontinued Medications Bisacodyl* (Dulcolax*), 10 MG GT ONCE, (Reported) Discontinued Reason: Prescription changed Clonidine Hcl* (Catapres*), 0.1 MG ORAL EVERY 6 HOURS, (Reported) Discontinued Reason: Pt stopped taking med Diphenhydramine Hcl* (Benadryl*), 25 MG GT Q6H PRN for Itching, (Reported) Discontinued Reason: Pt stopped taking med Insulin Aspart (Novolog Flexpen), 0 UNITS SUBQ Q6HR Discontinued Reason: Pt stopped taking med Magnesium Hydroxide* (Milk Of Magnesia*), 30 ML ORAL DAILY, (Reported) Discontinued Reason: Pt stopped taking med Vit C/Ascorb Sod/Multivit-Min (Emergen-C 500 mg Chewable Tab), 500 MG GT DAILY, (Reported) Discontinued Reason: Pt stopped taking med Patient History Healthcare decision maker Resuscitation status Full Code Advanced Directive on File Review of Systems ROS Narrative unable to obtain, non verbal Physical Exam Physical Exam Narrative General Appearance: no distress , awake, Nonverbal Lines, tubes and drains: peripheral HEENT: normocephalic, atraumatic, anicteric Neck: non-tender, trach Respiratory/Chest: chest wall non-tender, lungs clear, normal breath sounds, other - Mild respiratory distress Cardiovascular/Chest: normal peripheral pulses, normal rate, regular rhythm, no JVD Abdomen: normal bowel sounds, non tender, soft, feeding tube, other - G-tube in place area is clean dry and intact Extremities: normal range of motion, non-tender, normal inspection, other - No lower extremity edema bilaterally Skin Exam: normal pigmentation, warm/dry, multiple pressure ulcers Neurologic: awake, Nonverbal Lymphatic: anterior cervical - No lymphadenopathy Musculoskeletal: contracted Last 24 Hour Vital Signs Date Time Temp Pulse Resp B/P (MAP) Pulse Ox O2 Delivery O2 Flow Rate FiO2 01/31/19 08:44 80 20 99 Nasal Cannula 2.0 28 01/31/19 06:54 130/77 01/31/19 04:00 97.2 85 18 127/79 (95) 95 01/31/19 04:00 87 01/31/19 01:46 138/87 01/31/19 00:00 97.2 80 19 138/87 (104) 100 01/31/19 00:00 79 01/30/19 23:37 Nasal Cannula 2.0 01/30/19 21:30 82 01/30/19 21:30 96.8 89 16 117/69 (85) 97 01/30/19 21:25 98.7 92 28 109/67 99 Nasal Cannula 2.0 01/30/19 21:25 98.7 92 28 109/67 99 Nasal Cannula 2.0 01/30/19 19:09 98.4 98 30 130/64 99 Nasal Cannula 4.0 01/30/19 18:35 98.4 01/30/19 18:23 125 31 Nasal Cannula 4.0 01/30/19 18:05 100.0 125 31 110/66 99 Nasal Cannula 4.0 01/30/19 17:16 100.0 125 18 115/57 (76) 97 Room Air Intake and Output 01/30/19 01/31/19 18:59 06:59 Intake Total 1411.25 ml Output Total 400 ml Balance 1011.25 ml Intake IV Total 1411.25 ml Output Urine Total 400 ml # Bowel Movements 3 Laboratory Tests Test 01/30/19 17:45 01/30/19 18:45 01/31/19 06:11 White Blood Count 16.0 K/UL (4.8-10.8) H 12.0 K/UL (4.8-10.8) H Red Blood Count 4.67 M/UL (4.70-6.10) L 3.92 M/UL (4.70-6.10) L Hemoglobin 12.2 G/DL (14.2-18.0) L 10.5 G/DL (14.2-18.0) L Hematocrit 40.8 % (42.0-52.0) L 34.5 % (42.0-52.0) L Mean Corpuscular Volume 87 FL (80-99) 88 FL (80-99) Mean Corpuscular Hemoglobin 26.1 PG (27.0-31.0) L 26.7 PG (27.0-31.0) L Mean Corpuscular Hemoglobin Concent 29.8 G/DL (32.0-36.0) L 30.3 G/DL (32.0-36.0) L Red Cell Distribution Width 18.1 % (11.6-14.8) H 18.3 % (11.6-14.8) H Platelet Count 299 K/UL (150-450) 192 K/UL (150-450) Mean Platelet Volume 10.0 FL (6.5-10.1) 10.7 FL (6.5-10.1) H Neutrophils (%) (Auto) 82.4 % (45.0-75.0) H 76.8 % (45.0-75.0) H Lymphocytes (%) (Auto) 11.7 % (20.0-45.0) L 15.5 % (20.0-45.0) L Monocytes (%) (Auto) 3.7 % (1.0-10.0) 3.6 % (1.0-10.0) Eosinophils (%) (Auto) 1.0 % (0.0-3.0) 2.8 % (0.0-3.0) Basophils (%) (Auto) 1.1 % (0.0-2.0) 1.3 % (0.0-2.0) Urine Color Yellow Urine Appearance Clear Urine pH 6 (4.5-8.0) Urine Specific [place] 1.015 (1.005-1.035) Urine Protein 4+ (NEGATIVE) H Urine Glucose (UA) 2+ (NEGATIVE) H Urine Ketones 1+ (NEGATIVE) H Urine Blood 4+ (NEGATIVE) H Urine Nitrite Negative (NEGATIVE) Urine Bilirubin Negative (NEGATIVE) Urine Urobilinogen 4 MG/DL (0.0-1.0) H Urine Leukocyte Esterase 3+ (NEGATIVE) H Urine RBC 5-10 /HPF (0 - 0) H Urine WBC 15-20 /HPF (0 - 0) H Urine Squamous Epithelial Cells None /LPF (NONE/OCC) Urine Bacteria Many /HPF (NONE) H Urine Fine Granular Casts 0-2 /LPF (NONE) H Sodium Level 164 MMOL/L (136-145) *H 140 MMOL/L (136-145) # Potassium Level 3.5 MMOL/L (3.5-5.1) 4.5 MMOL/L (3.5-5.1) Chloride Level 123 MMOL/L (98-107) H 105 MMOL/L (98-107) Carbon Dioxide Level 36 MMOL/L (21-32) H 33 MMOL/L (21-32) H Anion Gap 6 mmol/L (5-15) 2 mmol/L (5-15) L Blood Urea Nitrogen 60 mg/dL (7-18) H 11 mg/dL (7-18) Creatinine 1.0 MG/DL (0.55-1.30) 0.8 MG/DL (0.55-1.30) Estimat Glomerular Filtration Rate > 60 mL/min (>60) > 60 mL/min (>60) Glucose Level 402 MG/DL (74-106) H 235 MG/DL (74-106) #H Lactic Acid Level 2.60 mmol/L (0.4-2.0) H 2.30 mmol/L (0.66-2.22) H Calcium Level 9.4 MG/DL (8.5-10.1) 7.0 MG/DL (8.5-10.1) #L Magnesium Level 2.7 MG/DL (1.8-2.4) H Total Bilirubin 0.3 MG/DL (0.2-1.0) Aspartate Amino Transf (AST/SGOT) 14 U/L (15-37) L Alanine Aminotransferase (ALT/SGPT) 17 U/L (12-78) Alkaline Phosphatase 115 U/L (46-116) Total Protein 9.1 G/DL (6.4-8.2) H Albumin 2.3 G/DL (3.4-5.0) L Globulin 6.8 g/dL Albumin/Globulin Ratio 0.3 (1.0-2.7) L Acetone Level Negative (NEGATIVE) Microbiology Date/Time Source Procedure Growth Status 01/30/19 17:45 Urine,Clean Catch Urine Culture - Preliminary Gram Negative Bacillus 1 Resulted 01/30/19 19:47 Rectum Received Height (Feet): 5 Height (Inches): 5.00 Weight (Pounds): 126 Medications Current Medications Medications (Trade) Dose Ordered Sig/Patience Route PRN Reason Start Time Stop Time Status Last Admin Dose Admin Acetaminophen (Tylenol) 650 mg Q4H PRN GT HEADACHE AND OR TEMP > 101 01/30/19 23:45 03/01/19 23:44 Acetaminophen (Tylenol) 650 mg Q4H PRN GT PAIN SCALE 3 TO 5 01/30/19 23:45 03/01/19 23:44 Albuterol/ Ipratropium (Albuterol/ Ipratropium) 3 ml EVERY 6 HOURS PRN HHN Shortness of Breath 01/30/19 23:30 02/04/19 23:29 Ascorbic Acid (Vitamin C) 500 mg DAILY GT 01/31/19 09:00 03/02/19 08:59 Aspirin (ASA) 81 mg DAILY GT 01/31/19 09:00 03/02/19 08:59 Azithromycin 500 mg/Dextrose 275 ml @ 275 mls/hr Q24HRS IV 01/31/19 18:00 02/03/19 18:00 Bisacodyl (Dulcolax) 10 mg DAILYPRN PRN RECTAL Constipation 01/31/19 07:03 03/02/19 07:02 Clonidine HCl (Catapres Tab) 0.1 mg EVERY 6 HOURS GT 01/31/19 00:00 03/02/19 00:00 01/31/19 06:54 Dextrose (Dextrose 50%) 25 ml Q30M PRN IV Hypoglycemia 01/31/19 00:45 03/02/19 00:44 Dextrose (Dextrose 50%) 50 ml Q30M PRN IV Hypoglycemia 01/31/19 00:45 03/02/19 00:44 Diphenhydramine HCl (Benadryl) 25 mg Q6H PRN GT Itching 01/30/19 23:45 03/01/19 23:44 Docusate Sodium (Colace) 100 mg DAILY GT 01/31/19 09:00 03/02/19 08:59 Heparin Sodium (Porcine) (Heparin 5000 units/ml) 5,000 units EVERY 12 HOURS SUBQ 01/31/19 09:00 03/02/19 08:59 Insulin Aspart (NovoLOG) EVERY 6 HOURS SUBQ 01/31/19 00:00 03/02/19 00:00 01/31/19 06:18 Lansoprazole (Prevacid) 30 mg DAILY@0630 GT 01/31/19 06:30 03/02/19 06:29 01/31/19 06:50 Magnesium Hydroxide (Mom) 30 ml BID GT 01/31/19 09:00 03/02/19 08:59 Midodrine (Pro-Amatine) 10 mg THREE TIMES A DAY GT 01/31/19 09:00 03/02/19 08:59 Multivitamins (Multivitamins W/ Minerals 15ml Liquid) 15 ml DAILY GT 01/31/19 09:00 03/02/19 08:59 Piperacillin Sod/ Tazobactam Sod 3.375 gm/Sodium Chloride 110 ml @ 27.5 mls/hr Q8HR IVPB 01/31/19 14:00 02/07/19 13:59 Potassium Chloride (K-Dur) 20 meq DAILY GT 01/31/19 09:00 03/02/19 08:59 Sennosides (Senokot) 8.6 mg BEDTIME GT 01/31/19 21:00 03/02/19 20:59 Sodium Chloride 1,000 ml @ 75 mls/hr [id number] IV 01/31/19 05:30 03/02/19 05:29 01/31/19 05:39 Sodium Phosphate (Fleet's Sodium Phosl Enema) 133 ml DAILY RECTAL 01/31/19 09:00 03/02/19 08:59 Zinc Sulfate (Zinc Sulfate) 220 mg DAILY GT 01/31/19 09:00 03/02/19 08:59 Assessment/Plan Problem List: (1) Hyperosmolar non-ketotic state in patient with type 2 diabetes mellitus ICD Codes: E11.00 - Type 2 diabetes mellitus with hyperosmolarity without nonketotic hyperglycemic-hyperosmolar coma ([facility]) SNOMED: 34512878, 263879065 (2) Hypernatremia ICD Codes: E87.0 - Hyperosmolality and hypernatremia SNOMED: 724730543 (3) Sepsis ICD Codes: A41.9 - Sepsis, unspecified organism SNOMED: 20270039 Qualifiers: Qualified Codes: A41.9 - Sepsis, unspecified organism (4) UTI (urinary tract infection) ICD Codes: N39.0 - Urinary tract infection, site not specified SNOMED: 50535688 Qualifiers: Qualified Codes: N39.0 - Urinary tract infection, site not specified (5) Dehydration ICD Codes: E86.0 - Dehydration SNOMED: 03690929 (6) Protein-calorie malnutrition, severe ICD Codes: E43 - Unspecified severe protein-calorie malnutrition SNOMED: 547271409, 478640515, 603764551 (7) Acute kidney injury ICD Codes: N17.9 - Acute kidney failure, unspecified SNOMED: 41077879 (8) Stage IV decubitus ulcer ICD Codes: L89.94 - Pressure ulcer of unspecified site, stage 4 SNOMED: 573179032 (9) History of CVA (cerebrovascular accident) ICD Codes: Z86.73 - Personal history of transient ischemic attack (TIA), and cerebral infarction without residual deficits SNOMED: 434321546 Status: progressing Assessment/Plan: 63 year old diabetic man with above history admitted for sepsis secondary to gram negative UTI/pyelonephritis, severe dehydration, hyperosmolar hyperglycemic non ketotic state. Doubt sacral wounds are infected. Stop IV NS, free water deficit 2.7 L, increase free water via PEG to 450 @6hr, check Na q12 hr to avoid overcorrection IV zosyn and Azithromycin ID consult follow up cultures chest xray monitor bun/cr, avoid nephrotoxic medications wound care Monitor wbc, bun/cr, avoid nephrotoxic medications nutrition consult vte ppx; heparin Gi ppx: ppi Full code- attempt to find DPOA, or family to discuss case d/w rn, and consultants I spent 70 minutes on this encounter. >50% spent on counselling and care coordination I spent an additional 35 mins in reviewing previous hospitalization , records, labs and imagining. Frank Toribio M.D. Jan 31, 2019 08:51
[2019-01-31] MEDS ORDERED: Milk of Magnesia 30ml Ud ORAL SCH (09:00)
[2019-01-31] MEDS ORDERED: Mag Plus Protein 133mg Tab ORAL ONE (09:00)
[2019-01-31] MEDS: Zinc Sulfate 220mg cap GT SCH (10:11)
[2019-01-31] MEDS: Midodrine 10mg tab GT SCH ×3 (10:11→18:28)
[2019-01-31] MEDS: Docusate 100mg/10ml Liq GT SCH (10:11)
[2019-01-31] MEDS: Multivitamins W/Minerals 15 ML UDC GT SCH (10:11)
[2019-01-31] MEDS: Aspirin Baby 81mg GT SCH (10:11)
[2019-01-31] MEDS: Ascorbic Acid 500mg tab GT SCH (10:11)
[2019-01-31] MEDS: Milk of Magnesia 30ml Ud GT SCH ×2 (10:11→18:28)
[2019-01-31] MEDS: Heparin 5000 units/ml inj SUBQ SCH ×2 (10:12→21:27)
[2019-01-31] MEDS: Fleet's Enema 133ml RECTAL SCH (10:12)
--- NOTE | 2019-01-31 10:18 | NUR ---
*-* INSURANCE *-* ALL AVAILABLE CLINICALS HAVE BEEN FAXED TO: [facility] CM: SANDRA #[phone] FAX#[phone] REVIEWS/CLINICALS
--- NOTE | 2019-01-31 11:27 | NUR ---
RD ASSESSMENT & RECOMMENDATIONS SEE CARE ACTIVITY FOR COMPLETE ASSESSMENT DAILY ESTIMATED NEEDS: Needs based on Wounds, sepsis/ 66kg 30-35 kcals/kg 1307-2064 total kcals 1.5-2 g protein/kg 99-132 g total protein 25-30 mL/kg 2452-1466 total fluid mLs NUTRITION DIAGNOSIS: 1) Increased kcal and protein needs r/t wound healing, suspected progressive and significant wt loss as evidenced by pt adm w/ multiple wounds, including advanced sacral wound, pending eval, wt loss of 7lbs/4.6% in 1 month and 23lbs/13.7% in 10 months. 2) Swallowing difficulty r/t dysphagia and h/o CVA as evidenced by pt is PEG dep. CURRENT TF:Glucerna 1.5 @ 70ml/hr x 24 hrs -> excessive ENTERAL NUTRITION RECOMMENDATIONS: Glucerna 1.5 @ 60ml/hr x 24 hrs to provide 1440ml, 2160kcal, 119g prot, 1093ml free water - DECREASE goal rate to 60ml/hr x 24 hrs: meets 100% est kcal/prot needs - Without IVF, water flush of 200ml q 6 hrs - HOB over 30 degrees ADDITIONAL RECOMMENDATIONS: 1) Wound care: Add Rafael 1pkt BID, continue Vit C 2) Monitor BGs closely, need for long acting insulin BG 402 upon adm -> now POC 100's 3) Calibrated bedscale wt for accurate CBW -> Daily wt monitoring given h/o progressive and significant wt loss 4) Monitor lytes, replete as needed .
--- NOTE | 2019-01-31 11:42 | Infectious Diseases Prog Note ---
Assessment/Plan Assessment/Plan Full consult dictated: A) gram neg uti/pyelonephritis sepsis fevers leukocytosis sacral wound P) zosyn and azithromycin check cultures check labs check chest x-ray wound care thank you Subjective Allergies: Coded Allergies: No Known Allergies (Unverified , 09/29/17) Objective Vital Signs Last 24 Hour Vital Signs Date Time Temp Pulse Resp B/P (MAP) Pulse Ox O2 Delivery O2 Flow Rate FiO2 01/31/19 08:51 Nasal Cannula 2.0 01/31/19 08:44 80 20 99 Nasal Cannula 2.0 28 01/31/19 08:00 97.3 74 16 121/75 (90) 100 01/31/19 06:54 130/77 01/31/19 04:00 97.2 85 18 127/79 (95) 95 01/31/19 04:00 87 01/31/19 01:46 138/87 01/31/19 00:00 97.2 80 19 138/87 (104) 100 01/31/19 00:00 79 01/30/19 23:37 Nasal Cannula 2.0 01/30/19 21:30 82 01/30/19 21:30 96.8 89 16 117/69 (85) 97 01/30/19 21:25 98.7 92 28 109/67 99 Nasal Cannula 2.0 01/30/19 21:25 98.7 92 28 109/67 99 Nasal Cannula 2.0 01/30/19 19:09 98.4 98 30 130/64 99 Nasal Cannula 4.0 01/30/19 18:35 98.4 01/30/19 18:23 125 31 Nasal Cannula 4.0 01/30/19 18:05 100.0 125 31 110/66 99 Nasal Cannula 4.0 01/30/19 17:16 100.0 125 18 115/57 (76) 97 Room Air Height (Feet): 5 Height (Inches): 5.00 Weight (Pounds): 126 Microbiology Date/Time Source Procedure Growth Status 01/30/19 17:45 Urine,Clean Catch Urine Culture - Preliminary Gram Negative Bacillus 1 Resulted 01/30/19 19:47 Rectum Received Laboratory Tests Test 01/30/19 17:45 01/30/19 18:45 01/31/19 06:11 White Blood Count 16.0 K/UL (4.8-10.8) H 12.0 K/UL (4.8-10.8) H Red Blood Count 4.67 M/UL (4.70-6.10) L 3.92 M/UL (4.70-6.10) L Hemoglobin 12.2 G/DL (14.2-18.0) L 10.5 G/DL (14.2-18.0) L Hematocrit 40.8 % (42.0-52.0) L 34.5 % (42.0-52.0) L Mean Corpuscular Volume 87 FL (80-99) 88 FL (80-99) Mean Corpuscular Hemoglobin 26.1 PG (27.0-31.0) L 26.7 PG (27.0-31.0) L Mean Corpuscular Hemoglobin Concent 29.8 G/DL (32.0-36.0) L 30.3 G/DL (32.0-36.0) L Red Cell Distribution Width 18.1 % (11.6-14.8) H 18.3 % (11.6-14.8) H Platelet Count 299 K/UL (150-450) 192 K/UL (150-450) Mean Platelet Volume 10.0 FL (6.5-10.1) 10.7 FL (6.5-10.1) H Neutrophils (%) (Auto) 82.4 % (45.0-75.0) H 76.8 % (45.0-75.0) H Lymphocytes (%) (Auto) 11.7 % (20.0-45.0) L 15.5 % (20.0-45.0) L Monocytes (%) (Auto) 3.7 % (1.0-10.0) 3.6 % (1.0-10.0) Eosinophils (%) (Auto) 1.0 % (0.0-3.0) 2.8 % (0.0-3.0) Basophils (%) (Auto) 1.1 % (0.0-2.0) 1.3 % (0.0-2.0) Urine Color Yellow Urine Appearance Clear Urine pH 6 (4.5-8.0) Urine Specific [place] 1.015 (1.005-1.035) Urine Protein 4+ (NEGATIVE) H Urine Glucose (UA) 2+ (NEGATIVE) H Urine Ketones 1+ (NEGATIVE) H Urine Blood 4+ (NEGATIVE) H Urine Nitrite Negative (NEGATIVE) Urine Bilirubin Negative (NEGATIVE) Urine Urobilinogen 4 MG/DL (0.0-1.0) H Urine Leukocyte Esterase 3+ (NEGATIVE) H Urine RBC 5-10 /HPF (0 - 0) H Urine WBC 15-20 /HPF (0 - 0) H Urine Squamous Epithelial Cells None /LPF (NONE/OCC) Urine Bacteria Many /HPF (NONE) H Urine Fine Granular Casts 0-2 /LPF (NONE) H Sodium Level 164 MMOL/L (136-145) *H 140 MMOL/L (136-145) # Potassium Level 3.5 MMOL/L (3.5-5.1) 4.5 MMOL/L (3.5-5.1) Chloride Level 123 MMOL/L (98-107) H 105 MMOL/L (98-107) Carbon Dioxide Level 36 MMOL/L (21-32) H 33 MMOL/L (21-32) H Anion Gap 6 mmol/L (5-15) 2 mmol/L (5-15) L Blood Urea Nitrogen 60 mg/dL (7-18) H 11 mg/dL (7-18) Creatinine 1.0 MG/DL (0.55-1.30) 0.8 MG/DL (0.55-1.30) Estimat Glomerular Filtration Rate > 60 mL/min (>60) > 60 mL/min (>60) Glucose Level 402 MG/DL (74-106) H 235 MG/DL (74-106) #H Lactic Acid Level 2.60 mmol/L (0.4-2.0) H 2.30 mmol/L (0.66-2.22) H Calcium Level 9.4 MG/DL (8.5-10.1) 7.0 MG/DL (8.5-10.1) #L Magnesium Level 2.7 MG/DL (1.8-2.4) H Total Bilirubin 0.3 MG/DL (0.2-1.0) Aspartate Amino Transf (AST/SGOT) 14 U/L (15-37) L Alanine Aminotransferase (ALT/SGPT) 17 U/L (12-78) Alkaline Phosphatase 115 U/L (46-116) Total Protein 9.1 G/DL (6.4-8.2) H Albumin 2.3 G/DL (3.4-5.0) L Globulin 6.8 g/dL Albumin/Globulin Ratio 0.3 (1.0-2.7) L Acetone Level Negative (NEGATIVE) Current Medications Medications (Trade) Dose Ordered Sig/Patience Route PRN Reason Start Time Stop Time Status Last Admin Dose Admin Acetaminophen (Tylenol) 650 mg Q4H PRN GT HEADACHE AND OR TEMP > 101 01/30/19 23:45 03/01/19 23:44 Acetaminophen (Tylenol) 650 mg Q4H PRN GT PAIN SCALE 3 TO 5 01/30/19 23:45 03/01/19 23:44 Albuterol/ Ipratropium (Albuterol/ Ipratropium) 3 ml EVERY 6 HOURS PRN HHN Shortness of Breath 01/30/19 23:30 02/04/19 23:29 Ascorbic Acid (Vitamin C) 500 mg DAILY GT 01/31/19 09:00 03/02/19 08:59 01/31/19 10:11 Aspirin (ASA) 81 mg DAILY GT 01/31/19 09:00 03/02/19 08:59 01/31/19 10:11 Azithromycin 500 mg/Dextrose 275 ml @ 275 mls/hr Q24HRS IV 01/31/19 18:00 02/03/19 18:00 Bisacodyl (Dulcolax) 10 mg DAILYPRN PRN RECTAL Constipation 01/31/19 07:03 03/02/19 07:02 Clonidine HCl (Catapres Tab) 0.1 mg EVERY 6 HOURS GT 01/31/19 00:00 03/02/19 00:00 01/31/19 06:54 Dextrose (Dextrose 50%) 25 ml Q30M PRN IV Hypoglycemia 01/31/19 00:45 03/02/19 00:44 Dextrose (Dextrose 50%) 50 ml Q30M PRN IV Hypoglycemia 01/31/19 00:45 03/02/19 00:44 Diphenhydramine HCl (Benadryl) 25 mg Q6H PRN GT Itching 01/30/19 23:45 03/01/19 23:44 Docusate Sodium (Colace) 100 mg DAILY GT 01/31/19 09:00 03/02/19 08:59 01/31/19 10:11 Heparin Sodium (Porcine) (Heparin 5000 units/ml) 5,000 units EVERY 12 HOURS SUBQ 01/31/19 09:00 03/02/19 08:59 01/31/19 10:12 Insulin Aspart (NovoLOG) EVERY 6 HOURS SUBQ 01/31/19 00:00 03/02/19 00:00 01/31/19 06:18 Lansoprazole (Prevacid) 30 mg DAILY@0630 GT 01/31/19 06:30 03/02/19 06:29 01/31/19 06:50 Magnesium Hydroxide (Mom) 30 ml BID GT 01/31/19 09:00 03/02/19 08:59 01/31/19 10:11 Midodrine (Pro-Amatine) 10 mg THREE TIMES A DAY GT 01/31/19 09:00 03/02/19 08:59 01/31/19 10:11 Multivitamins (Multivitamins W/ Minerals 15ml Liquid) 15 ml DAILY GT 01/31/19 09:00 03/02/19 08:59 01/31/19 10:11 Piperacillin Sod/ Tazobactam Sod 3.375 gm/Sodium Chloride 110 ml @ 27.5 mls/hr Q8HR IVPB 01/31/19 14:00 02/07/19 13:59 Potassium Chloride (K-Dur) 20 meq DAILY GT 01/31/19 09:00 03/02/19 08:59 01/31/19 10:11 Sennosides (Senokot) 8.6 mg BEDTIME GT 01/31/19 21:00 03/02/19 20:59 Sodium Chloride 1,000 ml @ 75 mls/hr [id number] IV 01/31/19 05:30 03/02/19 05:29 01/31/19 05:39 Sodium Phosphate (Fleet's Sodium Phosl Enema) 133 ml DAILY RECTAL 01/31/19 09:00 03/02/19 08:59 01/31/19 10:12 Zinc Sulfate (Zinc Sulfate) 220 mg DAILY GT 01/31/19 09:00 03/02/19 08:59 01/31/19 10:11 Gwendolyn Marquez MD Jan 31, 2019 11:42
[2019-01-31 12:00] VITALS: BP 96/62
--- NOTE | 2019-01-31 12:39 | Diagnostic Imaging Report ---
Indication: Dyspnea Comparison: 01/01/2019 A single view chest radiograph was obtained. Findings: Basilar infiltrates versus atelectasis demonstrated. Heart size remains normal. Bones are osteopenic. IMPRESSION: Development of basilar infiltrates versus atelectasis
[2019-01-31] MEDS ORDERED: CATAPRES0.1 MG GT (15:07)
[2019-01-31] MEDS ORDERED: BISACODYL10 M1 RC (15:23)
[2019-01-31] MEDS ORDERED: NOVOLOG100 UNIT/5 (15:23)
[2019-01-31] MEDS ORDERED: ASCORBIC ACID500 MG GT (15:35)
[2019-01-31] MEDS ORDERED: TRAMADOL HCL50 MG GT (15:38)
--- NOTE | 2019-01-31 15:56 | NUR ---
CASE MANAGEMENT: INITIAL REVIEW 63YR OLD MALE BIBA FROM [facility] CC: GENERALIZED WEAKNESS SI: SEPSIS . UTI/ PYELONEPHRITIS . PNA . DM 100.1 125 18 115/57 97% ON RA WBC 16.0 BUN 60 NA+164 MG 2.7 CL- 123 CO2 36 BG 402 H/H 12.2/40.8 LA 2.60 IS: IVF NS BOLUS X4 TYLENOL DE X1 IV ZOSYN X1 IV NOVOLOG X1 \: 2E TELE UNIT DCP: RETURN TO [facility] CASE MANAGEMENT: REVIEW 01/31/19 SI: SEPSIS . UTI . PNA . DM 97.3 74 16 121/75 100% 2L NC CA+ 7.0 WBC 12 CO2 33 BG 235 H/H 10.5/34.5 IS: IVF NS @75ML/HR IV ZOSYN Q8HR K-DUR PO QD ZINC SULFATE GT QD PRO-AMATINE GT TID NOVOLOG SQ Q6HR HEPARIN SQ BID ASA GT QD \: 2E TELE UNIT DCP: RETURN TO [facility] PLAN: CHECK CX WOUND CARE CONT ABX
[2019-01-31 16:00] VITALS: BP 110/62
[2019-01-31] MEDS: Vancomycin 1gm in D5W 275ml IVPB SCH (16:04)
--- NOTE | 2019-01-31 16:57 | NUR ---
NURSE NOTES:WOUND CARE NOTES:Pt presented on admission with multiple pressure injuries and contractures. Full thickness sacral pressure injury with undermined borders. Base of wound beefy red with small amt of biofilm.Small amt serous exudate noted. Mild odor noted. Erythematous and denuded borders and periwound. (L)7.5cm x (W)5cm x (D)3.8cm,undermining clockwise 10 - 5 by 6 cm @5o'clock. Full Thickness pressure injury R ischium. Base of wound 50% granular ,50% slough. Edges adherent to base of wound.No odor or exudate noted. Skin tone is darker without induration or erythema periwound. Resolving full thickness pressure injury L Ischium. [place] granulation at base of wound . Edges adhrent to base of wound with surrounding pink epithelial and hyperpigmentation.No odor or exudate noted. Historical scars noted to both heels . Both heels are soft but blanchable. Tx.Plan: Cleanse Sacral wound with Saline. Loosely pack with Hydrogel impregnated Kerlix.Apply Moisture Barrier Paste periwound. Cover with Optifoam drsg. Change Daily and prn. Cleanse R and L Ischial wounds with Saline. Apply Therahoney. Apply Moisture Barrier Paste periwound.Cover with Optifoam drsg.Change Daily and prn. Apply Moisture Barrier Paste to denuded areas on buttocks with each Incontinence care. Apply Cavilon Skin Barrier to both heels. Cover each heel with Optifoam drsg. Change Daily and prn. APM/SELENA Mattress overlay. Reposition at least every 2hours or as tolerated. Off-load heels with pillow.
--- NOTE | 2019-01-31 18:12 | Consultation ---
History of Present Illness General Date patient seen: Jan 31, 2019 Chief Complaint: Generalized Weakness Present Illness HPI 63-year-old male well known to me from prior admissions and care who presents to ED for evaluation from alf facility. Reported high blood sugar. History of diabetes. Also fever x1 day. Patient nonverbal at baseline. Unable to provide any additional history at this time. No reported cough or shortness of breath. No nausea or vomiting. No other aggravating relieving factors. No other associated symptoms. still with multiple large open wounds requiring care. labs noted. exam as below. surgery called to evaluate and assist with care. patient seen, chart reviewed, patient examined. Allergies: Coded Allergies: No Known Allergies (Unverified , 09/29/17) Medication History Scheduled Amino Acids/Protein Hydrolys (Pro-Stat Liquid), 30 ML GT BID, (Reported) Ascorbic Acid* (Ascorbic Acid*), 500 MG GT DAILY, (Reported) Aspirin* (Aspir 81*), 81 MG GT DAILY, (Reported) Clonidine Hcl* (Catapres*), 0.1 MG GT EVERY 6 HOURS, (Reported) Cran/Vitc/Mannose/Inulin/Brom (Uti-Stat Liquid), 3,875 MG GT EVERY 12 HOURS, ( Reported) Docusate Sodium* (Colace*), 100 MG GT DAILY, (Reported) Magnesium Hydroxide* (Milk Of Magnesia*), 30 ML GT QHS, (Reported) Midodrine (Midodrine HCl), 10 MG GT THREE TIMES A DAY, (Reported) Multivitamin with Minerals (Multivitamins with Minerals), 1 TAB GT DAILY, ( Reported) Pantoprazole* (Protonix*), 40 MG GT DAILY, (Reported) Potassium Chloride (K-Tab ER), 20 MEQ ORAL DAILY Sennosides (Senna), 17.2 MG GT BEDTIME, (Reported) Zinc Sulfate (Zinc Sulfate*), 220 MG GT DAILY, (Reported) Scheduled PRN Acetaminophen (Tylenol), 650 MG GT Q4HR PRN for Prn Headache/Temp > 101, ( Reported) Acetaminophen (Tylenol), 650 MG GT Q4HR PRN for Pain Scale (3-5), (Reported) Bisacodyl (Bisacodyl), 10 MG RC DAILY PRN for Constipation, (Reported) Ipratropium/Albuterol Sulfate (DuoNeb 0.5-3(2.5)mg/3ml), 3 ML HHN Q6HR PRN for Shortness of Breath, (Reported) Na Phos,M-B/Na Phos,Di-Ba* (Fleet Enema*), 133 ML RECTAL QOD PRN for Constipation, (Reported) Tramadol Hcl* (Ultram*), 50 MG GT DAILY PRN for For Pain, (Reported) Miscellaneous Medications Insulin Aspart (Novolog), (Reported) Discontinued Medications Bisacodyl* (Dulcolax*), 10 MG GT ONCE, (Reported) Discontinued Reason: Prescription changed Clonidine Hcl* (Catapres*), 0.1 MG ORAL EVERY 6 HOURS, (Reported) Discontinued Reason: Pt stopped taking med Diphenhydramine Hcl* (Benadryl*), 25 MG GT Q6H PRN for Itching, (Reported) Discontinued Reason: Pt stopped taking med Insulin Aspart (Novolog Flexpen), 0 UNITS SUBQ Q6HR Discontinued Reason: Pt stopped taking med Magnesium Hydroxide* (Milk Of Magnesia*), 30 ML ORAL DAILY, (Reported) Discontinued Reason: Pt stopped taking med Vit C/Ascorb Sod/Multivit-Min (Emergen-C 500 mg Chewable Tab), 500 MG GT DAILY, (Reported) Discontinued Reason: Pt stopped taking med Patient History Limited by: medical condition History Provided By: Medical Record, PMD Healthcare decision maker Resuscitation status Full Code Advanced Directive on File Past Medical/Surgical History Past Medical/Surgical History: (1) Hypokalemia (2) Hypocalcemia (3) Stage IV decubitus ulcer (4) History of CVA (cerebrovascular accident) (5) Septic shock (6) Leukocytosis (7) Acute kidney injury (8) Acute encephalopathy (9) Acute CVA (cerebrovascular accident) (10) Hypernatremia (11) UTI (urinary tract infection) (12) Pneumonia (13) Sacral decubitus ulcer (14) Sepsis (15) Fever (16) Hyperglycemia Review of Systems ROS Narrative cannot obtain given medical condition Physical Exam General Appearance: no apparent distress Lines, tubes and drains: peripheral HEENT: mucous membranes moist, PERRL Neck: normal alignment, supple, other - prior trach site still slighly open Respiratory/Chest: lungs clear, no respiratory distress, no accessory muscle use Cardiovascular/Chest: normal rate Abdomen: soft, no organomegaly, no mass, other Genitourinary/Rectal: other Extremities: normal capillary refill, other Skin Exam: warm/dry, other Neurologic: alert Last 24 Hour Vital Signs Date Time Temp Pulse Resp B/P (MAP) Pulse Ox O2 Delivery O2 Flow Rate FiO2 01/31/19 16:00 98.4 78 18 110/62 (78) 98 01/31/19 12:30 96/62 01/31/19 12:00 98.0 79 18 96/62 (73) 98 01/31/19 08:51 Nasal Cannula 2.0 01/31/19 08:44 80 20 99 Nasal Cannula 2.0 28 01/31/19 08:00 97.3 74 16 121/75 (90) 100 01/31/19 07:50 75 01/31/19 06:54 130/77 01/31/19 04:00 97.2 85 18 127/79 (95) 95 01/31/19 04:00 87 01/31/19 01:46 138/87 01/31/19 00:00 97.2 80 19 138/87 (104) 100 01/31/19 00:00 79 01/30/19 23:37 Nasal Cannula 2.0 01/30/19 21:30 82 01/30/19 21:30 96.8 89 16 117/69 (85) 97 01/30/19 21:25 98.7 92 28 109/67 99 Nasal Cannula 2.0 01/30/19 21:25 98.7 92 28 109/67 99 Nasal Cannula 2.0 01/30/19 19:09 98.4 98 30 130/64 99 Nasal Cannula 4.0 01/30/19 18:35 98.4 01/30/19 18:23 125 31 Nasal Cannula 4.0 Intake and Output 01/30/19 01/31/19 19:00 07:00 Intake Total 1486.25 ml Output Total 400 ml Balance 1086.25 ml Intake IV Total 1486.25 ml Output Urine Total 400 ml # Bowel Movements 3 Laboratory Tests Test 01/30/19 18:45 01/31/19 06:11 Lactic Acid Level 2.30 mmol/L (0.66-2.22) H White Blood Count 12.0 K/UL (4.8-10.8) H Red Blood Count 3.92 M/UL (4.70-6.10) L Hemoglobin 10.5 G/DL (14.2-18.0) L Hematocrit 34.5 % (42.0-52.0) L Mean Corpuscular Volume 88 FL (80-99) Mean Corpuscular Hemoglobin 26.7 PG (27.0-31.0) L Mean Corpuscular Hemoglobin Concent 30.3 G/DL (32.0-36.0) L Red Cell Distribution Width 18.3 % (11.6-14.8) H Platelet Count 192 K/UL (150-450) Mean Platelet Volume 10.7 FL (6.5-10.1) H Neutrophils (%) (Auto) 76.8 % (45.0-75.0) H Lymphocytes (%) (Auto) 15.5 % (20.0-45.0) L Monocytes (%) (Auto) 3.6 % (1.0-10.0) Eosinophils (%) (Auto) 2.8 % (0.0-3.0) Basophils (%) (Auto) 1.3 % (0.0-2.0) Sodium Level 140 MMOL/L (136-145) # Potassium Level 4.5 MMOL/L (3.5-5.1) Chloride Level 105 MMOL/L (98-107) Carbon Dioxide Level 33 MMOL/L (21-32) H Anion Gap 2 mmol/L (5-15) L Blood Urea Nitrogen 11 mg/dL (7-18) Creatinine 0.8 MG/DL (0.55-1.30) Estimat Glomerular Filtration Rate > 60 mL/min (>60) Glucose Level 235 MG/DL (74-106) #H Calcium Level 7.0 MG/DL (8.5-10.1) #L Microbiology Date/Time Source Procedure Growth Status 01/30/19 19:47 Rectum Received Height (Feet): 5 Height (Inches): 5.00 Weight (Pounds): 126 Medications Current Medications Medications (Trade) Dose Ordered Sig/Patience Route PRN Reason Start Time Stop Time Status Last Admin Dose Admin Acetaminophen (Tylenol) 650 mg Q4H PRN GT HEADACHE AND OR TEMP > 101 01/30/19 23:45 03/01/19 23:44 Acetaminophen (Tylenol) 650 mg Q4H PRN GT PAIN SCALE 3 TO 5 01/30/19 23:45 03/01/19 23:44 Albuterol/ Ipratropium (Albuterol/ Ipratropium) 3 ml EVERY 6 HOURS PRN HHN Shortness of Breath 01/30/19 23:30 02/04/19 23:29 Ascorbic Acid (Vitamin C) 500 mg DAILY GT 01/31/19 09:00 03/02/19 08:59 01/31/19 10:11 Aspirin (ASA) 81 mg DAILY GT 01/31/19 09:00 03/02/19 08:59 01/31/19 10:11 Azithromycin 500 mg/Dextrose 275 ml @ 275 mls/hr Q24HRS IV 01/31/19 18:00 02/03/19 18:00 Bisacodyl (Dulcolax) 10 mg DAILYPRN PRN RECTAL Constipation 01/31/19 07:03 03/02/19 07:02 Clonidine HCl (Catapres Tab) 0.1 mg EVERY 6 HOURS GT 01/31/19 00:00 03/02/19 00:00 01/31/19 06:54 Dextrose (Dextrose 50%) 25 ml Q30M PRN IV Hypoglycemia 01/31/19 17:15 03/02/19 17:14 Dextrose (Dextrose 50%) 50 ml Q30M PRN IV Hypoglycemia 01/31/19 17:15 03/02/19 17:14 Diphenhydramine HCl (Benadryl) 25 mg Q6H PRN GT Itching 01/30/19 23:45 03/01/19 23:44 Docusate Sodium (Colace) 100 mg DAILY GT 01/31/19 09:00 03/02/19 08:59 01/31/19 10:11 Heparin Sodium (Porcine) (Heparin 5000 units/ml) 5,000 units EVERY 12 HOURS SUBQ 01/31/19 09:00 03/02/19 08:59 01/31/19 10:12 Insulin Aspart (NovoLOG) Q6HR SUBQ 01/31/19 18:00 03/02/19 17:59 Lansoprazole (Prevacid) 30 mg DAILY@0630 GT 01/31/19 06:30 03/02/19 06:29 01/31/19 06:50 Magnesium Hydroxide (Mom) 30 ml BID GT 01/31/19 09:00 03/02/19 08:59 01/31/19 10:11 Midodrine (Pro-Amatine) 10 mg THREE TIMES A DAY GT 01/31/19 09:00 03/02/19 08:59 01/31/19 14:20 Multivitamins (Multivitamins W/ Minerals 15ml Liquid) 15 ml DAILY GT 01/31/19 09:00 03/02/19 08:59 01/31/19 10:11 Piperacillin Sod/ Tazobactam Sod 3.375 gm/Sodium Chloride 110 ml @ 27.5 mls/hr Q8HR IVPB 01/31/19 14:00 02/07/19 13:59 01/31/19 14:21 Potassium Chloride (K-Dur) 20 meq DAILY GT 01/31/19 09:00 03/02/19 08:59 01/31/19 10:11 Sennosides (Senokot) 8.6 mg BEDTIME GT 01/31/19 21:00 03/02/19 20:59 Sodium Chloride 1,000 ml @ 75 mls/hr [id number] IV 01/31/19 05:30 03/02/19 05:29 01/31/19 05:39 Sodium Phosphate (Fleet's Sodium Phosl Enema) 133 ml DAILY RECTAL 01/31/19 09:00 03/02/19 08:59 01/31/19 10:12 Vancomycin HCl (Vanco rx to dose) 1 ea DAILY PRN MISC Per rx protocol 01/31/19 11:45 03/02/19 11:44 Vancomycin HCl 1 gm/Dextrose 275 ml @ 183.708 mls/hr Q12HR@0300,1500 IVPB 01/31/19 15:00 02/05/19 14:59 01/31/19 16:04 Zinc Sulfate (Zinc Sulfate) 220 mg DAILY GT 01/31/19 09:00 03/02/19 08:59 01/31/19 10:11 Assessment/Plan Problem List: (1) Stage IV decubitus ulcer Assessment & Plan: Pt presented on admission with multiple pressure injuries and contractures. Full thickness stage 4 sacral pressure injury with undermined borders. Base of wound beefy red with small amt of biofilm.Small amt serous exudate noted. Mild odor noted. Erythematous and denuded borders and periwound. (L)7.5cm x (W)5cm x (D)3.8cm,undermining clockwise 10 - 5 by 6 cm @5o'clock. Full Thickness pressure injury R ischium. Base of wound 50% granular ,50% slough. Edges adherent to base of wound.No odor or exudate noted. Skin tone is darker without induration or erythema periwound. Resolving full thickness pressure injury L Ischium. [place] granulation at base of wound . Edges adhrent to base of wound with surrounding pink epithelial and hyperpigmentation.No odor or exudate noted. Historical scars noted to both heels . Both heels are soft but blanchable. Tx.Plan: Cleanse Sacral wound with Saline. Loosely pack with Hydrogel impregnated Kerlix.Apply Moisture Barrier Paste periwound. Cover with Optifoam drsg. Change Daily and prn. Cleanse R and L Ischial wounds with Saline. Apply Therahoney. Apply Moisture Barrier Paste periwound.Cover with Optifoam drsg.Change Daily and prn. Apply Moisture Barrier Paste to denuded areas on buttocks with each Incontinence care. Apply Cavilon Skin Barrier to both heels. Cover each heel with Optifoam drsg. Change Daily and prn. APM/SELENA Mattress overlay. Reposition at least every 2hours or as tolerated. Off-load heels with pillow. ICD Codes: L89.94 - Pressure ulcer of unspecified site, stage 4 SNOMED: 265083446 (2) Leukocytosis ICD Codes: D72.829 - Elevated white blood cell count, unspecified SNOMED: 134349940, 697785919 (3) Sepsis Assessment & Plan: 63-year-old male with leukocytosis, tachycardia, lactic acidosis. Abnormal labs. IV antibiotics as per infectious disease IV fluids local wound care as above Trend labs Wound is unlikely etiology of patient's infectious process is they are clean and chronic and healing will monitor and follow along with recommendations thank you for let me participate in patient's care ICD Codes: A41.9 - Sepsis, unspecified organism SNOMED: 42374262 Qualifiers: Qualified Codes: A41.9 - Sepsis, unspecified organism Tonio Raza Jan 31, 2019 18:12
--- NOTE | 2019-01-31 19:05 | NUR ---
NURSE NOTES: Received report from MARIA ELENA Corona. Patient in bed resting. No s/s of pain or distress noted. Patient not able to make need known. Flat affect IV noted with fluid ongoing. Feeding via G-tube. Patient on 2L NC. Will continue to monitor.
--- NOTE | 2019-01-31 19:14 | Cardiology Report ---
APPROVED REPORT EKG Measurement Heart [id number] Sinus tachycardia with occasional premature ventricular complexes Otherwise normal ECG
[2019-01-31] MEDS: Azithromycin 500 MG in D5W 275 ML IV SCH (19:16)
[2019-01-31 20:00] VITALS: BP 110/67
--- NOTE | 2019-01-31 20:04 | NUR ---
HAND-OFF: Report given to Marie calvo.
[2019-01-31] MEDS: Sennosides 8.6mg tab GT SCH (21:25)
[2019-02-01] VITALS: BP 114/65
[2019-02-01] MEDS: Vancomycin 1gm in D5W 275ml IVPB SCH ×2 (03:11→16:24)
[2019-02-01 04:00] VITALS: BP 116/63
[2019-02-01] MEDS: Piperacillin/Tazobactam 3.375 GM in NS 110 ML IVPB SCH ×4 (05:41→22:10)
[2019-02-01] MEDS: NovoLOG Insulin Flexpen SUBQ SCH ×3 (06:11→18:18)
[2019-02-01 07:17] LABS: BASOPHILS % (AUTO) 1.5 % (0.0-2.0); EOSINOPHILS % (AUTO) 5.9 % (0.0-3.0); LYMPHOCYTES % (AUTO) 19.4 % (20.0-45.0); MEAN CORPUSCULAR VOLUME 88 FL (80-99); MONOCYTES % (AUTO) 3.6 % (1.0-10.0); NEUTROPHILS % (AUTO) 69.5 % (45.0-75.0); PLATELET COUNT 190 K/UL (150-450); RED CELL DISTRIBUTION WIDTH 17.9 % (11.6-14.8); WHITE BLOOD COUNT 8.5 K/UL (4.8-10.8)
--- NOTE | 2019-02-01 07:25 | NUR ---
HAND-OFF: Report given to MARIA ELENA Corona. Patient in bed resting. No distress noted. Stable at hand-off.
[2019-02-01 07:35] LABS: ALANINE AMINOTRANSFERASE 13 U/L (12-78); ALBUMIN 1.6 G/DL (3.4-5.0); ALBUMIN/GLOBULIN RATIO 0.3 (1.0-2.7); ALKALINE PHOSPHATASE 74 U/L (46-116); ANION GAP 3 mmol/L (5-15); ASPARTATE AMINO TRANSFERASE 19 U/L (15-37); BILIRUBIN,TOTAL 0.2 MG/DL (0.2-1.0); BLOOD UREA NITROGEN 45 mg/dL (7-18); CALCIUM 7.9 MG/DL (8.5-10.1); CARBON DIOXIDE 35 MMOL/L (21-32); CHLORIDE 126 MMOL/L (98-107); CREATININE 0.7 MG/DL (0.55-1.30); POTASSIUM 3.4 MMOL/L (3.5-5.1); SODIUM 164 MMOL/L (136-145)
--- NOTE | 2019-02-01 07:48 | NUR ---
NURSE NOTES: Pt in low position, HOB in 30 degrees, bed alarm on, 2 side rails up, G-Tube running, IV running fluids and ABX, patent and asymptomatic, pt has no orientation, however, pt does respond when you communicate with him by nodding his head, G-Tube running with no residual, Glucerna 1.5 at 60ml flush Q6hr with H2O of 100. Na was called by lab to be at 164 and K is at 3.4, pt does not appear to be in pain, needs to be turned q2hR DUE TO sacral #4, no s/s of distress or sob noted.
[2019-02-01 08:00] VITALS: BP 94/58
--- NOTE | 2019-02-01 09:10 | Diagnostic Imaging Report ---
Indication: Shortness of breath Technique: One view of the chest Comparison: 01/30/2019 Findings: Atelectatic changes and/or consolidation and pleural effusions are demonstrated at both lung bases, left greater than right. This appears increased from the prior study. Heart size is normal. Impression: Increased bibasilar atelectasis and/or consolidation and pleural fluid, over 2 days
--- NOTE | 2019-02-01 09:17 | General Progress Note ---
Assessment/Plan Assessment/Plan: Subjective Allergies: Coded Allergies: No Known Allergies (Unverified , 09/29/17) Objective Last 24 Hour Vital Signs Date Time Temp Pulse Resp B/P (MAP) Pulse Ox O2 Delivery O2 Flow Rate FiO2 02/01/19 08:20 Nasal Cannula 2.0 02/01/19 08:00 98.4 78 18 94/58 (70) 99 02/01/19 06:07 116/63 02/01/19 04:00 97.8 77 18 116/63 (80) 97 02/01/19 04:00 85 02/01/19 00:00 98.0 87 18 114/65 (81) 97 02/01/19 00:00 85 01/31/19 23:27 114/65 01/31/19 21:00 Nasal Cannula 2.0 01/31/19 20:23 76 18 98 Nasal Cannula 2.0 28 01/31/19 20:00 73 01/31/19 20:00 98.0 79 16 110/67 (81) 99 01/31/19 18:00 110/62 01/31/19 16:00 98.4 78 18 110/62 (78) 98 01/31/19 15:16 77 01/31/19 15:16 77 01/31/19 12:30 96/62 01/31/19 12:00 98.0 79 18 96/62 (73) 98 01/31/19 11:39 72 Intake and Output 01/31/19 02/01/19 18:59 06:59 Intake Total 75 ml 2812.5 ml Output Total 800 ml 400 ml Balance -725 ml 2412.5 ml Intake Free Water 230 ml IV Total 75 ml 1862.5 ml Tube Feeding 720 ml Output Urine Total 800 ml 400 ml # Voids 1 1 # Bowel Movements 2 Laboratory Tests 02/01/19 06:25: White Blood Count 8.5, Red Blood Count 3.40L, Hemoglobin 9.0L, Hematocrit 30.0L , Mean Corpuscular Volume 88, Mean Corpuscular Hemoglobin 26.4L, Mean Corpuscular Hemoglobin Concent 29.9L, Red Cell Distribution Width 17.9H, Platelet Count 190, Mean Platelet Volume 10.1, Neutrophils (%) (Auto) 69.5, Lymphocytes (%) (Auto) 19.4L, Monocytes (%) (Auto) 3.6, Eosinophils (%) (Auto) 5.9H, Basophils (%) (Auto) 1.5, Sodium Level 164*H, Potassium Level 3.4L, Chloride Level 126H, Carbon Dioxide Level 35H, Anion Gap 3L, Blood Urea Nitrogen 45H, Creatinine 0.7, Estimat Glomerular Filtration Rate > 60, Glucose Level 290H, Calcium Level 7.9L, Total Bilirubin 0.2, Aspartate Amino Transf (AST /SGOT) 19, Alanine Aminotransferase (ALT/SGPT) 13, Alkaline Phosphatase 74, Total Protein 6.4, Albumin 1.6L, Globulin 4.8, Albumin/Globulin Ratio 0.3L Height (Feet): 5 Height (Inches): 5.00 Weight (Pounds): 126 Frank Toribio M.D. Feb 01, 2019 09:17
[2019-02-01] MEDS: Milk of Magnesia 30ml Ud GT SCH (10:00)
[2019-02-01] MEDS: Fleet's Enema 133ml RECTAL SCH (10:00)
[2019-02-01] MEDS: Midodrine 10mg tab GT SCH ×3 (10:05→18:16)
[2019-02-01] MEDS: Docusate 100mg/10ml Liq GT SCH (10:05)
[2019-02-01] MEDS: Aspirin Baby 81mg GT SCH (10:05)
[2019-02-01] MEDS: Multivitamins W/Minerals 15 ML UDC GT SCH (10:05)
[2019-02-01] MEDS: Zinc Sulfate 220mg cap GT SCH (10:05)
[2019-02-01] MEDS: Ascorbic Acid 500mg tab GT SCH (10:05)
[2019-02-01] MEDS: Heparin 5000 units/ml inj SUBQ SCH ×2 (10:06→22:09)
[2019-02-01 12:00] VITALS: BP 105/59
--- NOTE | 2019-02-01 14:25 | Surgery Progress Note ---
Surgery Progress Note Subjective Additional Comments comfortable appearing tolerating tube feeds no nn/v/f/c Objective Last 24 Hour Vital Signs Date Time Temp Pulse Resp B/P (MAP) Pulse Ox O2 Delivery O2 Flow Rate FiO2 02/01/19 12:00 98.0 73 16 105/59 (74) 100 02/01/19 12:00 105/59 02/01/19 08:20 Nasal Cannula 2.0 02/01/19 08:00 98.4 78 18 94/58 (70) 99 02/01/19 07:59 79 02/01/19 06:07 116/63 02/01/19 04:00 97.8 77 18 116/63 (80) 97 02/01/19 04:00 85 02/01/19 00:00 98.0 87 18 114/65 (81) 97 02/01/19 00:00 85 01/31/19 23:27 114/65 01/31/19 21:00 Nasal Cannula 2.0 01/31/19 20:23 76 18 98 Nasal Cannula 2.0 28 01/31/19 20:00 73 01/31/19 20:00 98.0 79 16 110/67 (81) 99 01/31/19 18:00 110/62 01/31/19 16:00 98.4 78 18 110/62 (78) 98 01/31/19 15:16 77 01/31/19 15:16 77 I&O Intake and Output 01/31/19 02/01/19 18:59 06:59 Intake Total 75 ml 2812.5 ml Output Total 800 ml 400 ml Balance -725 ml 2412.5 ml Intake Free Water 230 ml IV Total 75 ml 1862.5 ml Tube Feeding 720 ml Output Urine Total 800 ml 400 ml # Voids 1 1 # Bowel Movements 2 Dressing: other Wound: other Drains: other Cardiovascular: RSR Respiratory: decreased breath sounds Abdomen: soft, present bowel sounds Extremities: no edema, no tenderness, no cyanosis, other Laboratory Tests Test 02/01/19 06:25 White Blood Count 8.5 K/UL (4.8-10.8) Red Blood Count 3.40 M/UL (4.70-6.10) L Hemoglobin 9.0 G/DL (14.2-18.0) L Hematocrit 30.0 % (42.0-52.0) L Mean Corpuscular Volume 88 FL (80-99) Mean Corpuscular Hemoglobin 26.4 PG (27.0-31.0) L Mean Corpuscular Hemoglobin Concent 29.9 G/DL (32.0-36.0) L Red Cell Distribution Width 17.9 % (11.6-14.8) H Platelet Count 190 K/UL (150-450) Mean Platelet Volume 10.1 FL (6.5-10.1) Neutrophils (%) (Auto) 69.5 % (45.0-75.0) Lymphocytes (%) (Auto) 19.4 % (20.0-45.0) L Monocytes (%) (Auto) 3.6 % (1.0-10.0) Eosinophils (%) (Auto) 5.9 % (0.0-3.0) H Basophils (%) (Auto) 1.5 % (0.0-2.0) Sodium Level 164 MMOL/L (136-145) *H Potassium Level 3.4 MMOL/L (3.5-5.1) L Chloride Level 126 MMOL/L (98-107) H Carbon Dioxide Level 35 MMOL/L (21-32) H Anion Gap 3 mmol/L (5-15) L Blood Urea Nitrogen 45 mg/dL (7-18) H Creatinine 0.7 MG/DL (0.55-1.30) Estimat Glomerular Filtration Rate > 60 mL/min (>60) Glucose Level 290 MG/DL (74-106) H Calcium Level 7.9 MG/DL (8.5-10.1) L Total Bilirubin 0.2 MG/DL (0.2-1.0) Aspartate Amino Transf (AST/SGOT) 19 U/L (15-37) Alanine Aminotransferase (ALT/SGPT) 13 U/L (12-78) Alkaline Phosphatase 74 U/L (46-116) Total Protein 6.4 G/DL (6.4-8.2) Albumin 1.6 G/DL (3.4-5.0) L Globulin 4.8 g/dL Albumin/Globulin Ratio 0.3 (1.0-2.7) L Plan Problems: (1) Stage IV decubitus ulcer Assessment & Plan: Pt presented on admission with multiple pressure injuries and contractures. Full thickness stage 4 sacral pressure injury with undermined borders. Base of wound beefy red with small amt of biofilm.Small amt serous exudate noted. Mild odor noted. Erythematous and denuded borders and periwound. (L)7.5cm x (W)5cm x (D)3.8cm,undermining clockwise 10 - 5 by 6 cm @5o'clock. Full Thickness pressure injury R ischium. Base of wound 50% granular ,50% slough. Edges adherent to base of wound.No odor or exudate noted. Skin tone is darker without induration or erythema periwound. Resolving full thickness pressure injury L Ischium. [place] granulation at base of wound . Edges adhrent to base of wound with surrounding pink epithelial and hyperpigmentation.No odor or exudate noted. Historical scars noted to both heels . Both heels are soft but blanchable. Tx.Plan: Cleanse Sacral wound with Saline. Loosely pack with Hydrogel impregnated Kerlix.Apply Moisture Barrier Paste periwound. Cover with Optifoam drsg. Change Daily and prn. Cleanse R and L Ischial wounds with Saline. Apply Therahoney. Apply Moisture Barrier Paste periwound.Cover with Optifoam drsg.Change Daily and prn. Apply Moisture Barrier Paste to denuded areas on buttocks with each Incontinence care. Apply Cavilon Skin Barrier to both heels. Cover each heel with Optifoam drsg. Change Daily and prn. APM/SELENA Mattress overlay. Reposition at least every 2hours or as tolerated. Off-load heels with pillow. (2) Leukocytosis (3) Sepsis Assessment & Plan: 63-year-old male with leukocytosis, tachycardia, lactic acidosis. Abnormal labs. IV antibiotics as per infectious disease IV fluids local wound care as above Trend labs Wound is unlikely etiology of patient's infectious process is they are clean and chronic and healing will monitor and follow along with recommendations thank you for let me participate in patient's care Tonio Raza Feb 01, 2019 14:25
--- NOTE | 2019-02-01 14:51 | General Progress Note ---
Assessment/Plan Problem List: (1) Hyperosmolar non-ketotic state in patient with type 2 diabetes mellitus ICD Codes: E11.00 - Type 2 diabetes mellitus with hyperosmolarity without nonketotic hyperglycemic-hyperosmolar coma ([facility]) SNOMED: 10413886, 868551555 (2) Hypernatremia ICD Codes: E87.0 - Hyperosmolality and hypernatremia SNOMED: 651575381 (3) Sepsis ICD Codes: A41.9 - Sepsis, unspecified organism SNOMED: 92970022 Qualifiers: Qualified Codes: A41.9 - Sepsis, unspecified organism (4) UTI (urinary tract infection) ICD Codes: N39.0 - Urinary tract infection, site not specified SNOMED: 39437259 Qualifiers: Qualified Codes: N39.0 - Urinary tract infection, site not specified (5) Dehydration ICD Codes: E86.0 - Dehydration SNOMED: 63003145 (6) Protein-calorie malnutrition, severe ICD Codes: E43 - Unspecified severe protein-calorie malnutrition SNOMED: 373842890, 226895766, 353130318 (7) Acute kidney injury ICD Codes: N17.9 - Acute kidney failure, unspecified SNOMED: 53985933 (8) Stage IV decubitus ulcer ICD Codes: L89.94 - Pressure ulcer of unspecified site, stage 4 SNOMED: 283640936 (9) History of CVA (cerebrovascular accident) ICD Codes: Z86.73 - Personal history of transient ischemic attack (TIA), and cerebral infarction without residual deficits SNOMED: 016523063 Status: progressing Assessment/Plan: 63 year old diabetic man with above history admitted for sepsis secondary to gram negative UTI/pyelonephritis, severe dehydration, hyperosmolar hyperglycemic non ketotic state. Doubt sacral wounds are infected. Stop IV NS, free water deficit 2.7 L, increase free water via PEG to 450 @6hr, check Na q12 hr to avoid overcorrection IV zosyn and Azithromycin ID consult follow up cultures chest xray: Development of basilar infiltrates versus atelectasis monitor bun/cr, avoid nephrotoxic medications wound care Monitor wbc, bun/cr, avoid nephrotoxic medications Add Levemir 17 units qhs, sliding scale, increase as needed nutrition consult vte ppx; heparin Gi ppx: ppi Full code- attempt to find DPOA, or family to discuss case d/w rn, and consultants I spent 70 minutes on this encounter. >50% spent on counselling and care coordination I spent an additional 35 mins in reviewing previous hospitalization , records, labs and imagining. Subjective Date patient seen: Feb 01, 2019 ROS Limited/Unobtainable: Yes Allergies: Coded Allergies: No Known Allergies (Unverified , 09/29/17) Subjective awake and in no distress. Na worsening, vitals stable. Objective Last 24 Hour Vital Signs Date Time Temp Pulse Resp B/P (MAP) Pulse Ox O2 Delivery O2 Flow Rate FiO2 02/01/19 12:00 98.0 73 16 105/59 (74) 100 02/01/19 12:00 105/59 02/01/19 08:20 Nasal Cannula 2.0 02/01/19 08:00 98.4 78 18 94/58 (70) 99 02/01/19 07:59 79 02/01/19 06:07 116/63 02/01/19 04:00 97.8 77 18 116/63 (80) 97 02/01/19 04:00 85 02/01/19 00:00 98.0 87 18 114/65 (81) 97 02/01/19 00:00 85 01/31/19 23:27 114/65 01/31/19 21:00 Nasal Cannula 2.0 01/31/19 20:23 76 18 98 Nasal Cannula 2.0 28 01/31/19 20:00 73 01/31/19 20:00 98.0 79 16 110/67 (81) 99 01/31/19 18:00 110/62 01/31/19 16:00 98.4 78 18 110/62 (78) 98 01/31/19 15:16 77 01/31/19 15:16 77 Intake and Output 01/31/19 02/01/19 18:59 06:59 Intake Total 75 ml 2812.5 ml Output Total 800 ml 400 ml Balance -725 ml 2412.5 ml Intake Free Water 230 ml IV Total 75 ml 1862.5 ml Tube Feeding 720 ml Output Urine Total 800 ml 400 ml # Voids 1 1 # Bowel Movements 2 Laboratory Tests 02/01/19 06:25: White Blood Count 8.5, Red Blood Count 3.40L, Hemoglobin 9.0L, Hematocrit 30.0L , Mean Corpuscular Volume 88, Mean Corpuscular Hemoglobin 26.4L, Mean Corpuscular Hemoglobin Concent 29.9L, Red Cell Distribution Width 17.9H, Platelet Count 190, Mean Platelet Volume 10.1, Neutrophils (%) (Auto) 69.5, Lymphocytes (%) (Auto) 19.4L, Monocytes (%) (Auto) 3.6, Eosinophils (%) (Auto) 5.9H, Basophils (%) (Auto) 1.5, Sodium Level 164*H, Potassium Level 3.4L, Chloride Level 126H, Carbon Dioxide Level 35H, Anion Gap 3L, Blood Urea Nitrogen 45H, Creatinine 0.7, Estimat Glomerular Filtration Rate > 60, Glucose Level 290H, Calcium Level 7.9L, Total Bilirubin 0.2, Aspartate Amino Transf (AST /SGOT) 19, Alanine Aminotransferase (ALT/SGPT) 13, Alkaline Phosphatase 74, Total Protein 6.4, Albumin 1.6L, Globulin 4.8, Albumin/Globulin Ratio 0.3L Height (Feet): 5 Height (Inches): 5.00 Weight (Pounds): 126 Objective General Appearance: no distress , awake, Nonverbal Lines, tubes and drains: peripheral HEENT: normocephalic, atraumatic, anicteric Neck: non-tender, trach Respiratory/Chest: chest wall non-tender, lungs clear, normal breath sounds, other - Mild respiratory distress Cardiovascular/Chest: normal peripheral pulses, normal rate, regular rhythm, no JVD Abdomen: normal bowel sounds, non tender, soft, feeding tube, other - G-tube in place area is clean dry and intact Extremities: normal range of motion, non-tender, normal inspection, other - No lower extremity edema bilaterally Skin Exam: normal pigmentation, warm/dry, multiple pressure ulcers Neurologic: awake, Nonverbal Lymphatic: anterior cervical - No lymphadenopathy Musculoskeletal: contracted Frank Toribio M.D. Feb 01, 2019 14:51
--- NOTE | 2019-02-01 15:12 | Infectious Diseases Prog Note ---
Assessment/Plan Assessment/Plan Full consult dictated: A) providencia uti/pyelonephritis sepsis fevers leukocytosis sacral wound ? pna P) zosyn and azithromycin, vancomycin check cultures final check labs check chest x-ray wound care per surgery will f/u Subjective Constitutional: Denies: fever HEENT: Denies: congestion Respiratory: Denies: shortness of breath Gastrointestinal/Abdominal: Denies: nausea, vomiting, diarrhea Genitourinary: Reports: other - + parks Allergies: Coded Allergies: No Known Allergies (Unverified , 09/29/17) Objective Vital Signs Last 24 Hour Vital Signs Date Time Temp Pulse Resp B/P (MAP) Pulse Ox O2 Delivery O2 Flow Rate FiO2 02/01/19 12:00 98.0 73 16 105/59 (74) 100 02/01/19 12:00 105/59 02/01/19 08:20 Nasal Cannula 2.0 02/01/19 08:00 98.4 78 18 94/58 (70) 99 02/01/19 07:59 79 02/01/19 06:07 116/63 02/01/19 04:00 97.8 77 18 116/63 (80) 97 02/01/19 04:00 85 02/01/19 00:00 98.0 87 18 114/65 (81) 97 02/01/19 00:00 85 01/31/19 23:27 114/65 01/31/19 21:00 Nasal Cannula 2.0 01/31/19 20:23 76 18 98 Nasal Cannula 2.0 28 01/31/19 20:00 73 01/31/19 20:00 98.0 79 16 110/67 (81) 99 01/31/19 18:00 110/62 01/31/19 16:00 98.4 78 18 110/62 (78) 98 01/31/19 15:16 77 01/31/19 15:16 77 Height (Feet): 5 Height (Inches): 5.00 Weight (Pounds): 126 General Appearance: no acute distress HEENT: normocephalic, atraumatic, anicteric, mucous membranes moist, status post trach Respiratory/Chest: crackles/rales, rhonchi - bilaterally Cardiovascular: normal rate, regular rhythm, no gallop/murmur Abdomen: normal bowel sounds, soft, non tender, no organomegaly, non distended Microbiology Date/Time Source Procedure Growth Status 01/30/19 18:14 Blood Blood Culture - Preliminary NO GROWTH AFTER 24 HOURS Resulted 01/30/19 17:45 Blood Blood Culture - Preliminary NO GROWTH AFTER 24 HOURS Resulted 01/30/19 17:45 Urine,Clean Catch Urine Culture - Preliminary Providencia Stuartii Resulted 01/30/19 19:47 Rectum Received Laboratory Tests Test 02/01/19 06:25 White Blood Count 8.5 K/UL (4.8-10.8) Red Blood Count 3.40 M/UL (4.70-6.10) L Hemoglobin 9.0 G/DL (14.2-18.0) L Hematocrit 30.0 % (42.0-52.0) L Mean Corpuscular Volume 88 FL (80-99) Mean Corpuscular Hemoglobin 26.4 PG (27.0-31.0) L Mean Corpuscular Hemoglobin Concent 29.9 G/DL (32.0-36.0) L Red Cell Distribution Width 17.9 % (11.6-14.8) H Platelet Count 190 K/UL (150-450) Mean Platelet Volume 10.1 FL (6.5-10.1) Neutrophils (%) (Auto) 69.5 % (45.0-75.0) Lymphocytes (%) (Auto) 19.4 % (20.0-45.0) L Monocytes (%) (Auto) 3.6 % (1.0-10.0) Eosinophils (%) (Auto) 5.9 % (0.0-3.0) H Basophils (%) (Auto) 1.5 % (0.0-2.0) Sodium Level 164 MMOL/L (136-145) *H Potassium Level 3.4 MMOL/L (3.5-5.1) L Chloride Level 126 MMOL/L (98-107) H Carbon Dioxide Level 35 MMOL/L (21-32) H Anion Gap 3 mmol/L (5-15) L Blood Urea Nitrogen 45 mg/dL (7-18) H Creatinine 0.7 MG/DL (0.55-1.30) Estimat Glomerular Filtration Rate > 60 mL/min (>60) Glucose Level 290 MG/DL (74-106) H Calcium Level 7.9 MG/DL (8.5-10.1) L Total Bilirubin 0.2 MG/DL (0.2-1.0) Aspartate Amino Transf (AST/SGOT) 19 U/L (15-37) Alanine Aminotransferase (ALT/SGPT) 13 U/L (12-78) Alkaline Phosphatase 74 U/L (46-116) Total Protein 6.4 G/DL (6.4-8.2) Albumin 1.6 G/DL (3.4-5.0) L Globulin 4.8 g/dL Albumin/Globulin Ratio 0.3 (1.0-2.7) L Current Medications Medications (Trade) Dose Ordered Sig/Patience Route PRN Reason Start Time Stop Time Status Last Admin Dose Admin Acetaminophen (Tylenol) 650 mg Q4H PRN GT HEADACHE AND OR TEMP > 101 01/30/19 23:45 03/01/19 23:44 Acetaminophen (Tylenol) 650 mg Q4H PRN GT PAIN SCALE 3 TO 5 01/30/19 23:45 03/01/19 23:44 Albuterol/ Ipratropium (Albuterol/ Ipratropium) 3 ml EVERY 6 HOURS PRN HHN Shortness of Breath 01/30/19 23:30 02/04/19 23:29 Ascorbic Acid (Vitamin C) 500 mg DAILY GT 01/31/19 09:00 03/02/19 08:59 02/01/19 10:05 Aspirin (ASA) 81 mg DAILY GT 01/31/19 09:00 03/02/19 08:59 02/01/19 10:05 Azithromycin 500 mg/Dextrose 275 ml @ 275 mls/hr Q24HRS IV 01/31/19 18:00 02/03/19 18:00 01/31/19 19:16 Bisacodyl (Dulcolax) 10 mg DAILYPRN PRN RECTAL Constipation 01/31/19 07:03 03/02/19 07:02 Clonidine HCl (Catapres Tab) 0.1 mg EVERY 6 HOURS GT 01/31/19 00:00 03/02/19 00:00 02/01/19 06:07 Dextrose (Dextrose 50%) 25 ml Q30M PRN IV Hypoglycemia 01/31/19 17:15 03/02/19 17:14 Dextrose (Dextrose 50%) 50 ml Q30M PRN IV Hypoglycemia 01/31/19 17:15 03/02/19 17:14 Diphenhydramine HCl (Benadryl) 25 mg Q6H PRN GT Itching 01/30/19 23:45 03/01/19 23:44 Docusate Sodium (Colace) 100 mg DAILY GT 01/31/19 09:00 03/02/19 08:59 02/01/19 10:05 Heparin Sodium (Porcine) (Heparin 5000 units/ml) 5,000 units EVERY 12 HOURS SUBQ 01/31/19 09:00 03/02/19 08:59 02/01/19 10:06 Insulin Aspart (NovoLOG) Q6HR SUBQ 01/31/19 18:00 03/02/19 17:59 02/01/19 12:57 Insulin Detemir (Levemir) 17 units QHS SUBQ 02/01/19 21:00 03/03/19 20:59 Lansoprazole (Prevacid) 30 mg DAILY@0630 GT 01/31/19 06:30 03/02/19 06:29 02/01/19 05:42 Magnesium Hydroxide (Mom) 30 ml BID GT 01/31/19 09:00 03/02/19 08:59 01/31/19 18:28 Midodrine (Pro-Amatine) 10 mg THREE TIMES A DAY GT 01/31/19 09:00 03/02/19 08:59 02/01/19 13:58 Multivitamins (Multivitamins W/ Minerals 15ml Liquid) 15 ml DAILY GT 01/31/19 09:00 03/02/19 08:59 02/01/19 10:05 Piperacillin Sod/ Tazobactam Sod 3.375 gm/Sodium Chloride 110 ml @ 27.5 mls/hr Q8HR IVPB 01/31/19 14:00 02/07/19 13:59 02/01/19 13:58 Potassium Chloride (K-Dur) 20 meq DAILY GT 01/31/19 09:00 03/02/19 08:59 02/01/19 10:05 Sennosides (Senokot) 8.6 mg BEDTIME GT 01/31/19 21:00 03/02/19 20:59 01/31/19 21:25 Sodium Phosphate (Fleet's Sodium Phosl Enema) 133 ml DAILY RECTAL 01/31/19 09:00 03/02/19 08:59 01/31/19 10:12 Vancomycin HCl (Vanco rx to dose) 1 ea DAILY PRN MISC Per rx protocol 01/31/19 11:45 03/02/19 11:44 Vancomycin HCl 1 gm/Dextrose 275 ml @ 183.708 mls/hr Q12HR@0300,1500 IVPB 01/31/19 15:00 02/05/19 14:59 02/01/19 03:11 Zinc Sulfate (Zinc Sulfate) 220 mg DAILY GT 01/31/19 09:00 03/02/19 08:59 02/01/19 10:05 Gwendolyn Marquez MD Feb 01, 2019 15:12
[2019-02-01 16:00] VITALS: BP 94/57
--- NOTE | 2019-02-01 16:11 | NUR ---
CASE MANAGEMENT: REVIEW 02/01/19 SI: SEPSIS . UTI . PNA . DM 98.4 78 18 94/58 99% 2L NC NA+ 164 K+ 3.4 CL-126 CA+ 7.9 WBC 12 CO2 35 BG 235 H/H 11/29 BG 290 BUN 45 IS: IV VANCO BID IV ZITHROMAX Q24 IV ZOSYN Q8HR K-DUR PO QD ZINC SULFATE GT QD PRO-AMATINE GT TID NOVOLOG SQ Q6HR HEPARIN SQ BID ASA GT QD \: 2E TELE UNIT DCP: RETURN TO [facility] PLAN: SP CX-PENDING CXR IN AM
[2019-02-01] MEDS ORDERED: Fleet's Enema 133ml RECTAL PRN (17:45)
[2019-02-01] MEDS ORDERED: Milk of Magnesia 30ml Ud GT PRN (17:45)
[2019-02-01] MEDS: Azithromycin 500 MG in D5W 275 ML IV SCH (18:16)
--- NOTE | 2019-02-01 19:35 | NUR ---
HAND-OFF: Report given to Sudha Lund.
--- NOTE | 2019-02-01 19:48 | NUR ---
NURSE NOTES: Received report from MARIA ELENA Corona. Patient is awake lying semi-cormier's; resting comfortably. No signs of acute distress or pain noted at this time. On 2L nasal cannula. AOx0; unable to make needs known. Aphasic. Checked IV site; patent and flushed. No erythema, bleeding, or infiltration noted. Glucerna 1.5 running at 60 mls/hr. On low air loss mattress for appropriate wound management. Naik catheter draining well to gravity. Bed at lowest position, brakes on, siderails up x3. Call light within reach. Will continue to monitor.
[2019-02-01 20:00] VITALS: BP 108/55
--- NOTE | 2019-02-01 22:00 | Consultation ---
DATE OF CONSULTATION: 02/01/2019 INFECTIOUS DISEASE CONSULTATION CONSULTING PHYSICIAN: Gwendolyn Marquez M.D. ATTENDING PHYSICIAN: David Lindsey M.D. REFERRING PHYSICIAN: Frank Toribio M.D. REASON FOR CONSULTATION: Sepsis, Providencia urinary tract infection, pyelonephritis, possible pneumonia, sacral wound infection, fevers, and leukocytosis. CHIEF COMPLAINT: The patient's chief complaint coming in to the hospital is fevers, sepsis, leukocytosis. HISTORY OF PRESENT ILLNESS: This is a 63-year-old male, who has history of old trach it looks like. The patient presents to [facility] with fevers, leukocytosis, SIRS criteria, and likely sepsis. The patient has what looks like is a Providencia urinary tract infection. He has also a sacral wound stage IV unclear if that is pneumonia versus atelectasis. Infectious Disease consultation is requested. The patient currently is on vancomycin and Zosyn. He is also on azithromycin for 5-day course. The patient is also being followed by Surgery for the sacral wound. MAR was noted. Orders were noted. Notes and records were reviewed. REVIEW OF SYSTEMS: The patient currently is nonverbal and cannot give review of systems. It looks like he has an old trach site, it is covered. He opens his eyes. He is mildly congested. He came in with fevers.CARDIAC: No pressors. GASTROINTESTINAL: No nausea, vomiting, or diarrhea. GENITOURINARY: He has a Naik. PULMONARY: Mild congestion. SKIN: No obvious rash. He has sacral wound. NEUROLOGIC: No seizures. PAST MEDICAL HISTORY: The patient has a past medical history of the following. The patient has a past medical history of diabetes type 2, has hyperosmolar nonketotic state currently. He has hyponatremia. Other past medical history, he has history of old trach, no vent. He has history of malnutrition, acute kidney injury, sacral wound, CVA, weakness, and anemia. He has a history of cardiac disease, hemiplegia, transient ischemic attack. Other past medical history of diabetes and COPD. He has history of neuropathy, dysphagia, paralysis, hyperlipidemia, and hypertension. MEDICATIONS: Upon reviewing the MAR, he is on the following medications. He is on Senokot, insulin, azithromycin, Zosyn, and vancomycin. He is on aspirin and docusate. He is on multivitamins, , sodium phosphate, potassium, zinc sulfate, ascorbic acid, bisacodyl, lisinopril, clonidine, acetaminophen, and diphenhydramine. Outside medications were noted and reconciliated. ALLERGIES: He has no known drug allergies. No antibiotic allergies. SOCIAL HISTORY: Negative for smoking, alcohol, or drug abuse. FAMILY HISTORY: Noncontributory. PHYSICAL EXAMINATION: VITAL SIGNS: T-max 100, currently temperature 98. Other vital signs pulse rate 73, respiratory rate 16, blood pressure 105/59, and saturation 100%. Pulse rate was 125 on admission. Respiratory rate on admission was 31. GENERAL: Opens eyes. Nonverbal. HEAD AND NECK: He has old trach site. No icterus. Normocephalic. No JVD. Neck seems to be supple. HEART: Regular. No obvious gallop or murmur. ABDOMEN: Soft. Positive bowel sounds. Nontender. LUNGS: Few bilateral rhonchi. Possible rales at the bases. SKIN: No rash. There is a significant sacral wound that has possible areas of slough. He has some redness also. MUSCULOSKELETAL: No effusion. Legs are without cellulitis. PERIPHERAL VASCULAR: No cyanosis. GENITOURINARY: He has a Naik. Urine is slightly cloudy. LINE SITES: Without phlebitis. NEUROLOGIC: Generalized weakness. Opens eyes, otherwise nonverbal. LABORATORY AND DIAGNOSTIC DATA: Laboratory data is as follows. Blood cultures are negative to date. Urine culture had Providencia stuartii greater than 100,000. His UA had 3+ leukocyte esterase, 15 to 20 white blood cells, many bacteria. Creatinine is 0.7. Sodium 164. White count 8.5 and hemoglobin 9.0. White count on admission was 16.0. IMAGING STUDIES: Chest x-ray shows atelectasis versus consolidation. ASSESSMENT AND PLAN: 1. The patient has sepsis, Providencia urinary tract infection, and pyelonephritis. The patient has fevers and leukocytosis, SIRS criteria. Again, most likely from [place] urinary tract infection and pyelonephritis. The patient also has what looks like pneumonia, possible chest x-ray reveals atelectasis. The patient also has a sacral wound, which could be infected. At this time, we will continue vancomycin and azithromycin and Zosyn. Check cultures including final blood cultures. Check sputum culture, laboratories, and chest x-ray. Urine culture with Providencia. Continue vancomycin, Zosyn, and azithromycin for possible aspiration healthcare-acquired pneumonia versus community-acquired pneumonia and Providencia urinary tract infection and pyelonephritis and sepsis. Continue wound care per Surgery. 2. The patient has history of CVA and weakness. 3. Diabetes. 4. Hypertension. 5. Hyperlipidemia. 6. Blood sugar and blood pressure treatment for diabetes and hypertension per primary care team. 7. Wound care per Surgery and protocol. 8. Weakness secondary to CVA. 9. History of TIA. 10. G-tube dysphagia. 11. Old trach. 12. History of respiratory failure. 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 14. Paralysis. 15. Dysphagia. 16. Dementia. 17. No known allergies. 18. Social history is negative. 19. Family history is noncontributory. 20. MAR was noted. 21. Case was discussed with RN. 22. Case was discussed with Dr. Toribio. Gwendolyn Marquez M.D. DR: REMINGTON JOB#: [id number] CC: DAVE
[2019-02-01] MEDS: Levemir Flexpen SUBQ SCH (22:08)
[2019-02-01] MEDS: Sennosides 8.6mg tab GT SCH (22:09)
[2019-02-02] VITALS: BP 105/55
[2019-02-02] MEDS: NovoLOG Insulin Flexpen SUBQ SCH ×4 (01:26→17:29)
[2019-02-02 02:31] LABS: BASOPHILS % (AUTO) 1.7 % (0.0-2.0); EOSINOPHILS % (AUTO) 8.8 % (0.0-3.0); HEMATOCRIT 29.5 % (42.0-52.0); HEMOGLOBIN 8.9 G/DL (14.2-18.0); LYMPHOCYTES % (AUTO) 34.8 % (20.0-45.0); MEAN CORPUSCULAR VOLUME 87 FL (80-99); MONOCYTES % (AUTO) 4.2 % (1.0-10.0); NEUTROPHILS % (AUTO) 50.6 % (45.0-75.0); PLATELET COUNT 214 K/UL (150-450); RED CELL DISTRIBUTION WIDTH 17.5 % (11.6-14.8); WHITE BLOOD COUNT 7.3 K/UL (4.8-10.8)
[2019-02-02 02:47] LABS: ALANINE AMINOTRANSFERASE 11 U/L (12-78); ALBUMIN 1.6 G/DL (3.4-5.0); ALBUMIN/GLOBULIN RATIO 0.3 (1.0-2.7); ALKALINE PHOSPHATASE 72 U/L (46-116); ANION GAP 1 mmol/L (5-15); ASPARTATE AMINO TRANSFERASE 18 U/L (15-37); BILIRUBIN,TOTAL 0.2 MG/DL (0.2-1.0); BLOOD UREA NITROGEN 36 mg/dL (7-18); CALCIUM 8.3 MG/DL (8.5-10.1); CARBON DIOXIDE 38 MMOL/L (21-32); CHLORIDE 124 MMOL/L (98-107); CREATININE 0.6 MG/DL (0.55-1.30); POTASSIUM 3.9 MMOL/L (3.5-5.1)
[2019-02-02 02:49] LABS: SODIUM 161 MMOL/L (136-145)
[2019-02-02] MEDS: Vancomycin 1gm in D5W 275ml IVPB SCH ×2 (03:15→14:30)
[2019-02-02 04:00] VITALS: BP 106/55
[2019-02-02] MEDS: Piperacillin/Tazobactam 3.375 GM in NS 110 ML IVPB SCH ×3 (06:34→22:22)
--- NOTE | 2019-02-02 07:40 | NUR ---
NURSE NOTES: Received report from MARIA ELENA Haley. The patient is resting on the bed without acute distress or shortness of breath. The patient's bed in the lowest position, call light in reach, and fall and aspiration precaution reinforced. The patient is on air matress for stage IV sacrum pressure ulcer. IV site intact and patent. G tube intact and patent and running formula as ordered. Naik intact and draining well. Oxygen therapy per order. Will continue plan of care.
--- NOTE | 2019-02-02 07:50 | NUR ---
HAND-OFF: Report given to MARIA ELENA Bey. Patient is awake lying semi-cormier's; resting comfortably. Glucerna 1.5 running at 60 mls/hr. Naik catheter draining well to gravity. In stable condition.
[2019-02-02 08:00] VITALS: BP 104/59
[2019-02-02] MEDS: Aspirin Baby 81mg GT SCH (09:28)
[2019-02-02] MEDS: Docusate 100mg/10ml Liq GT SCH (09:28)
[2019-02-02] MEDS: Zinc Sulfate 220mg cap GT SCH (09:29)
[2019-02-02] MEDS: Midodrine 10mg tab GT SCH ×3 (09:29→17:31)
[2019-02-02] MEDS: Multivitamins W/Minerals 15 ML UDC GT SCH (09:29)
[2019-02-02] MEDS: Ascorbic Acid 500mg tab GT SCH (09:29)
[2019-02-02] MEDS: Heparin 5000 units/ml inj SUBQ SCH ×2 (09:30→22:21)
--- NOTE | 2019-02-02 09:30 | NUR ---
NURSE NOTES: Dr. Toribio at the bedside assessed the patient. Notified Dr. Toribio regarding abnormal lab result including sodium, hemoglobin, lactic acid, and blood culture. Dr. Toribio ordered BMP and lactic acid to repeat on 1700. The patient is stable without acute distress or shortness of breath. Will continue plan of care.
--- NOTE | 2019-02-02 09:51 | General Progress Note ---
Assessment/Plan Problem List: (1) Hyperosmolar non-ketotic state in patient with type 2 diabetes mellitus ICD Codes: E11.00 - Type 2 diabetes mellitus with hyperosmolarity without nonketotic hyperglycemic-hyperosmolar coma ([facility]) SNOMED: 94920055, 079204133 (2) Hypernatremia ICD Codes: E87.0 - Hyperosmolality and hypernatremia SNOMED: 355552146 (3) Sepsis ICD Codes: A41.9 - Sepsis, unspecified organism SNOMED: 02861434 Qualifiers: Qualified Codes: A41.9 - Sepsis, unspecified organism (4) UTI (urinary tract infection) ICD Codes: N39.0 - Urinary tract infection, site not specified SNOMED: 60938822 Qualifiers: Qualified Codes: N39.0 - Urinary tract infection, site not specified (5) Dehydration ICD Codes: E86.0 - Dehydration SNOMED: 16548644 (6) Protein-calorie malnutrition, severe ICD Codes: E43 - Unspecified severe protein-calorie malnutrition SNOMED: 599048083, 296506001, 354099507 (7) Acute kidney injury ICD Codes: N17.9 - Acute kidney failure, unspecified SNOMED: 01584005 (8) Stage IV decubitus ulcer ICD Codes: L89.94 - Pressure ulcer of unspecified site, stage 4 SNOMED: 122730581 (9) History of CVA (cerebrovascular accident) ICD Codes: Z86.73 - Personal history of transient ischemic attack (TIA), and cerebral infarction without residual deficits SNOMED: 852626431 Status: progressing Assessment/Plan: 63 year old diabetic man with above history admitted for sepsis secondary to gram negative UTI/pyelonephritis, severe dehydration, hyperosmolar hyperglycemic non ketotic state. Doubt sacral wounds are infected. Stop IV NS, free water deficit 2.5 L, increase free water via PEG to 450 ml q 4hr, check Na q12 hr to avoid overcorrection, ordered for 5 pm IV zosyn, Vancomycin and Azithromycin ID consult appreciated follow up cultures, urine cx grew Providencia Stuarti, sensitive to Zosyn chest xray: Development of basilar infiltrates versus atelectasis monitor bun/cr, avoid nephrotoxic medications wound care Monitor wbc, bun/cr, avoid nephrotoxic medications Continue Levemir 17 units qhs, sliding scale, increase as needed nutrition consult vte ppx; heparin Gi ppx: ppi Full code- attempt to find DPOA, or family to discuss case d/w rn, and consultants I spent 40 minutes on this encounter. >50% spent on counselling and care coordination Subjective Date patient seen: Feb 02, 2019 ROS Limited/Unobtainable: Yes Allergies: Coded Allergies: No Known Allergies (Unverified , 09/29/17) Subjective awake and in no distress. non verbal. Na mildly improved, still very high , vitals stable. Objective Last 24 Hour Vital Signs Date Time Temp Pulse Resp B/P (MAP) Pulse Ox O2 Delivery O2 Flow Rate FiO2 02/02/19 08:00 98.7 65 18 104/59 (74) 99 02/02/19 05:15 106/55 02/02/19 04:00 98.1 64 20 106/55 (72) 99 02/02/19 04:00 73 02/02/19 00:56 105/55 02/02/19 00:00 98.1 63 18 105/55 (72) 97 02/01/19 23:48 72 02/01/19 21:00 Nasal Cannula 2.0 02/01/19 20:36 68 02/01/19 20:14 74 18 95 Nasal Cannula 2.0 28 02/01/19 20:00 98.3 72 20 108/55 (72) 97 02/01/19 17:36 94/57 02/01/19 16:00 98.6 77 18 94/57 (69) 98 02/01/19 15:56 73 02/01/19 12:00 98.0 73 16 105/59 (74) 100 02/01/19 12:00 105/59 02/01/19 11:43 75 Intake and Output 02/01/19 02/02/19 19:00 07:00 Intake Total 60 ml 2000.4 ml Output Total 400 ml 800 ml Balance -340 ml 1200.4 ml Intake Free Water 900 ml IV Total 380.4 ml Tube Feeding 60 ml 720 ml Output Urine Total 400 ml 800 ml # Bowel Movements 2 1 Laboratory Tests 02/02/19 02:00: White Blood Count 7.3, Red Blood Count 3.40L, Hemoglobin 8.9L, Hematocrit 29.5L , Mean Corpuscular Volume 87, Mean Corpuscular Hemoglobin 26.3L, Mean Corpuscular Hemoglobin Concent 30.3L, Red Cell Distribution Width 17.5H, Platelet Count 214, Mean Platelet Volume 10.3H, Neutrophils (%) (Auto) 50.6, Lymphocytes (%) (Auto) 34.8, Monocytes (%) (Auto) 4.2, Eosinophils (%) (Auto) 8.8H, Basophils (%) (Auto) 1.7, Sodium Level 161*H, Potassium Level 3.9, Chloride Level 124H, Carbon Dioxide Level 38H, Anion Gap 1L, Blood Urea Nitrogen 36H, Creatinine 0.6, Estimat Glomerular Filtration Rate > 60, Glucose Level 154#H, Calcium Level 8.3L, Total Bilirubin 0.2, Aspartate Amino Transf ( AST/SGOT) 18, Alanine Aminotransferase (ALT/SGPT) 11L, Alkaline Phosphatase 72, Total Protein 6.5, Albumin 1.6L, Globulin 4.9, Albumin/Globulin Ratio 0.3L, Vancomycin Level Trough 14.2H Height (Feet): 5 Height (Inches): 5.00 Weight (Pounds): 168 Objective General Appearance: no distress , awake, Nonverbal Lines, tubes and drains: peripheral HEENT: normocephalic, atraumatic, anicteric Neck: non-tender, trach Respiratory/Chest: chest wall non-tender, lungs clear, normal breath sounds, other - Mild respiratory distress Cardiovascular/Chest: normal peripheral pulses, normal rate, regular rhythm, no JVD Abdomen: normal bowel sounds, non tender, soft, feeding tube, other - G-tube in place area is clean dry and intact Extremities: normal range of motion, non-tender, normal inspection, other - No lower extremity edema bilaterally Skin Exam: normal pigmentation, warm/dry, multiple pressure ulcers Neurologic: awake, Nonverbal Lymphatic: anterior cervical - No lymphadenopathy Musculoskeletal: contracted Frank Toribio M.D. Feb 02, 2019 09:51
--- NOTE | 2019-02-02 11:14 | NUR ---
ASE MANAGEMENT: REVIEW 02/02/19 SI: SEPSIS . PROVIDENCIA UTI . PYELONEPHRITIS . PNA . DM 98.7 65 18 104/59 99% 2L NC NA+ 161 CL-124 CA+ 8.3 BG 154 H/H 8.9/29.5 BUN 36 IS: IV VANCO BID IV ZITHROMAX Q24 IV ZOSYN Q8HR K-DUR PO QD ZINC SULFATE GT QD PRO-AMATINE GT TID NOVOLOG SQ Q6HR HEPARIN SQ BID ASA GT QD \: 2E TELE UNIT DCP: RETURN TO [facility] PLAN: INFECTED WOUND TREATMENT SP CX-PENDING CXR IN AM
[2019-02-02 12:00] VITALS: BP 114/69
--- NOTE | 2019-02-02 12:00 | NUR ---
NURSE NOTES: The patient is stable without acute distress or shortness of breath. Will continue plan of care.
--- NOTE | 2019-02-02 15:35 | Surgery Progress Note ---
Surgery Progress Note Subjective Additional Comments Patient seen and examined bedside. Labs improved. Exam stable. Tolerating feeds. Objective Last 24 Hour Vital Signs Date Time Temp Pulse Resp B/P (MAP) Pulse Ox O2 Delivery O2 Flow Rate FiO2 02/02/19 12:00 114/69 02/02/19 11:31 97 Nasal Cannula 2.0 28 02/02/19 11:30 69 20 97 Nasal Cannula 2.0 28 02/02/19 08:00 98.7 65 18 104/59 (74) 99 02/02/19 05:15 106/55 02/02/19 04:00 98.1 64 20 106/55 (72) 99 02/02/19 04:00 73 02/02/19 00:56 105/55 02/02/19 00:00 98.1 63 18 105/55 (72) 97 02/01/19 23:48 72 02/01/19 21:00 Nasal Cannula 2.0 02/01/19 20:36 68 02/01/19 20:14 74 18 95 Nasal Cannula 2.0 28 02/01/19 20:00 98.3 72 20 108/55 (72) 97 02/01/19 17:36 94/57 02/01/19 16:00 98.6 77 18 94/57 (69) 98 02/01/19 15:56 73 I&O Intake and Output 02/01/19 02/02/19 18:59 06:59 Intake Total 2000.4 ml Output Total 400 ml Balance -400 ml 2000.4 ml Intake Free Water 900 ml IV Total 380.4 ml Tube Feeding 720 ml Output Urine Total 400 ml # Bowel Movements 2 1 Dressing: saturated Wound: other Drains: other Cardiovascular: RSR, other Respiratory: clear, decreased breath sounds Abdomen: soft, present bowel sounds Extremities: no cyanosis, other Laboratory Tests Test 02/02/19 02:00 White Blood Count 7.3 K/UL (4.8-10.8) Red Blood Count 3.40 M/UL (4.70-6.10) L Hemoglobin 8.9 G/DL (14.2-18.0) L Hematocrit 29.5 % (42.0-52.0) L Mean Corpuscular Volume 87 FL (80-99) Mean Corpuscular Hemoglobin 26.3 PG (27.0-31.0) L Mean Corpuscular Hemoglobin Concent 30.3 G/DL (32.0-36.0) L Red Cell Distribution Width 17.5 % (11.6-14.8) H Platelet Count 214 K/UL (150-450) Mean Platelet Volume 10.3 FL (6.5-10.1) H Neutrophils (%) (Auto) 50.6 % (45.0-75.0) Lymphocytes (%) (Auto) 34.8 % (20.0-45.0) Monocytes (%) (Auto) 4.2 % (1.0-10.0) Eosinophils (%) (Auto) 8.8 % (0.0-3.0) H Basophils (%) (Auto) 1.7 % (0.0-2.0) Sodium Level 161 MMOL/L (136-145) *H Potassium Level 3.9 MMOL/L (3.5-5.1) Chloride Level 124 MMOL/L (98-107) H Carbon Dioxide Level 38 MMOL/L (21-32) H Anion Gap 1 mmol/L (5-15) L Blood Urea Nitrogen 36 mg/dL (7-18) H Creatinine 0.6 MG/DL (0.55-1.30) Estimat Glomerular Filtration Rate > 60 mL/min (>60) Glucose Level 154 MG/DL (74-106) #H Calcium Level 8.3 MG/DL (8.5-10.1) L Total Bilirubin 0.2 MG/DL (0.2-1.0) Aspartate Amino Transf (AST/SGOT) 18 U/L (15-37) Alanine Aminotransferase (ALT/SGPT) 11 U/L (12-78) L Alkaline Phosphatase 72 U/L (46-116) Total Protein 6.5 G/DL (6.4-8.2) Albumin 1.6 G/DL (3.4-5.0) L Globulin 4.9 g/dL Albumin/Globulin Ratio 0.3 (1.0-2.7) L Vancomycin Level Trough 14.2 ug/mL (5.0-12.0) H Plan Problems: (1) Stage IV decubitus ulcer Assessment & Plan: Pt presented on admission with multiple pressure injuries and contractures. Full thickness stage 4 sacral pressure injury with undermined borders. Base of wound beefy red with small amt of biofilm.Small amt serous exudate noted. Mild odor noted. Erythematous and denuded borders and periwound. (L)7.5cm x (W)5cm x (D)3.8cm,undermining clockwise 10 - 5 by 6 cm @5o'clock. Full Thickness pressure injury R ischium. Base of wound 50% granular ,50% slough. Edges adherent to base of wound.No odor or exudate noted. Skin tone is darker without induration or erythema periwound. Resolving full thickness pressure injury L Ischium. [place] granulation at base of wound . Edges adhrent to base of wound with surrounding pink epithelial and hyperpigmentation.No odor or exudate noted. Historical scars noted to both heels . Both heels are soft but blanchable. Tx.Plan: Cleanse Sacral wound with Saline. Loosely pack with Hydrogel impregnated Kerlix.Apply Moisture Barrier Paste periwound. Cover with Optifoam drsg. Change Daily and prn. Cleanse R and L Ischial wounds with Saline. Apply Therahoney. Apply Moisture Barrier Paste periwound.Cover with Optifoam drsg.Change Daily and prn. Apply Moisture Barrier Paste to denuded areas on buttocks with each Incontinence care. Apply Cavilon Skin Barrier to both heels. Cover each heel with Optifoam drsg. Change Daily and prn. APM/SELENA Mattress overlay. Reposition at least every 2hours or as tolerated. Off-load heels with pillow. (2) Leukocytosis (3) Sepsis Assessment & Plan: 63-year-old male with leukocytosis, tachycardia, lactic acidosis. Abnormal labs. IV antibiotics as per infectious disease IV fluids local wound care as above Trend labs Wound is unlikely etiology of patient's infectious process is they are clean and chronic and healing will monitor and follow along with recommendations thank you for let me participate in patient's care Tonio Raza Feb 02, 2019 15:35
[2019-02-02 16:00] VITALS: BP 115/61
--- NOTE | 2019-02-02 17:00 | NUR ---
NURSE NOTES: The patient is stable without acute distress or shortness of breath. Will continue plan of care.
[2019-02-02] MEDS: Azithromycin 500 MG in D5W 275 ML IV SCH (17:32)
[2019-02-02 18:16] LABS: ANION GAP 1 mmol/L (5-15); BLOOD UREA NITROGEN 34 mg/dL (7-18); CALCIUM 7.7 MG/DL (8.5-10.1); CARBON DIOXIDE 35 MMOL/L (21-32); CHLORIDE 119 MMOL/L (98-107); CREATININE 0.6 MG/DL (0.55-1.30); POTASSIUM 4.2 MMOL/L (3.5-5.1); SODIUM 155 MMOL/L (136-145)
--- NOTE | 2019-02-02 19:10 | NUR ---
HAND-OFF: Report given to MARIA ELENA Haley. The patient is resting on the bed without acute distress or shortness of breath. The patient's bed in the lowest position, call light in reach, and fall and aspiration precaution reinforced. IV sites intact and patent. Oxygen therapy per order. G tube intact and running formula as ordered. Naik intact and draining well. Endorsed plan of care.
--- NOTE | 2019-02-02 19:16 | NUR ---
NURSE NOTES: Received report from MARIA ELENA Bey. Patient is awake lying semi-cormier's; resting comfortably. No signs of acute distress or pain noted at this time. On 2L nasal cannula. AOx1; unable to make needs known. Aphasic. Checked IV site; patent and flushed. No erythema, bleeding, or infiltration noted. Glucerna 1.5 running at 60 mls/hr. On low air loss mattress for appropriate wound management. Naik catheter draining well to gravity. Bed at lowest position, brakes on, siderails up x3. Call light within reach. Will continue to monitor.
[2019-02-02 20:00] VITALS: BP 111/67
[2019-02-02] MEDS: Levemir Flexpen SUBQ SCH (22:20)
[2019-02-02] MEDS: Sennosides 8.6mg tab GT SCH (22:22)
[2019-02-03] VITALS: BP 105/63
[2019-02-03] MEDS: NovoLOG Insulin Flexpen SUBQ SCH ×4 (01:55→17:59)
[2019-02-03] MEDS: Vancomycin 1gm in D5W 275ml IVPB SCH ×2 (03:41→14:37)
[2019-02-03 04:00] VITALS: BP 100/50
[2019-02-03] MEDS: Piperacillin/Tazobactam 3.375 GM in NS 110 ML IVPB SCH ×3 (06:55→22:53)
--- NOTE | 2019-02-03 07:26 | NUR ---
HAND-OFF: Report given to MARIA ELENA Allen. Patient is awake lying high-cormier's; resting comfortably. Glucerna 1.5 running at 60 mls/hr. Naik catheter draining well to gravity. In stable condition.
--- NOTE | 2019-02-03 07:54 | NUR ---
NURSE NOTES: Received report from MARIA ELENA Haley. Pt in bed, awake, nonverbal, able to tract with eyes and follow commands to some degree, no apparent respiratory distress, respiration are regular and unlabored, bed in lowest position, call light within reach. pt on SELENA/AP mattress for noted wounds
[2019-02-03 08:00] VITALS: BP 138/65
--- NOTE | 2019-02-03 09:03 | Diagnostic Imaging Report ---
Indication: Infection Technique: One view of the chest Comparison: 02/01/2019 Findings: There is some pleural fluid at the right lung base, appearing increased. There appears to be decreased pleural fluid at the left lung base. Atelectatic changes are again demonstrated at both lung bases. The heart is borderline enlarged. There is minimal interstitial congestion Impression: Increased right and decreased left pleural fluid, over 2 days Otherwise stable findings as described
[2019-02-03] MEDS: Midodrine 10mg tab GT SCH ×3 (10:04→17:58)
[2019-02-03] MEDS: Zinc Sulfate 220mg cap GT SCH (10:04)
[2019-02-03] MEDS: Ascorbic Acid 500mg tab GT SCH (10:04)
[2019-02-03] MEDS: Multivitamins W/Minerals 15 ML UDC GT SCH (10:04)
[2019-02-03] MEDS: Docusate 100mg/10ml Liq GT SCH (10:04)
[2019-02-03] MEDS: Aspirin Baby 81mg GT SCH (10:04)
[2019-02-03] MEDS: Heparin 5000 units/ml inj SUBQ SCH ×2 (10:06→20:53)
--- NOTE | 2019-02-03 10:28 | General Progress Note ---
Assessment/Plan Problem List: (1) Hyperosmolar non-ketotic state in patient with type 2 diabetes mellitus ICD Codes: E11.00 - Type 2 diabetes mellitus with hyperosmolarity without nonketotic hyperglycemic-hyperosmolar coma (N[facility]) SNOMED: 94315876, 919460146 (2) Hypernatremia ICD Codes: E87.0 - Hyperosmolality and hypernatremia SNOMED: 836621923 (3) Sepsis ICD Codes: A41.9 - Sepsis, unspecified organism SNOMED: 70249550 Qualifiers: Qualified Codes: A41.9 - Sepsis, unspecified organism (4) UTI (urinary tract infection) ICD Codes: N39.0 - Urinary tract infection, site not specified SNOMED: 89925470 Qualifiers: Qualified Codes: N39.0 - Urinary tract infection, site not specified (5) Dehydration ICD Codes: E86.0 - Dehydration SNOMED: 31509007 (6) Protein-calorie malnutrition, severe ICD Codes: E43 - Unspecified severe protein-calorie malnutrition SNOMED: 544806959, 438148884, 113056933 (7) Acute kidney injury ICD Codes: N17.9 - Acute kidney failure, unspecified SNOMED: 47572000 (8) Stage IV decubitus ulcer ICD Codes: L89.94 - Pressure ulcer of unspecified site, stage 4 SNOMED: 835266038 (9) History of CVA (cerebrovascular accident) ICD Codes: Z86.73 - Personal history of transient ischemic attack (TIA), and cerebral infarction without residual deficits SNOMED: 631029589 Status: progressing Assessment/Plan: 63 year old diabetic man with above history admitted for sepsis secondary to gram negative UTI/pyelonephritis, severe dehydration, hyperosmolar hyperglycemic non ketotic state. Doubt sacral wounds are infected. Stop IV NS, free water deficit 2.5 L, increase free water via PEG to 450 ml q 4hr, check Na q12 hr to avoid overcorrection IV zosyn, Vancomycin and Azithromycin ID consult appreciated follow up cultures, urine cx grew Providencia Stuarti, sensitive to Zosyn chest xray: Development of basilar infiltrates versus atelectasis monitor bun/cr, avoid nephrotoxic medications wound care Monitor wbc, bun/cr, avoid nephrotoxic medications Increase Levemir 17 units qhs to 20 units , sliding scale as needed q6hr , increase as needed nutrition consult vte ppx; heparin Gi ppx: ppi Full code- attempt to find DPOA, or family to discuss case d/w rn, and consultants I spent 40 minutes on this encounter. >50% spent on counselling and care coordination Subjective Date patient seen: Feb 03, 2019 ROS Limited/Unobtainable: Yes Allergies: Coded Allergies: No Known Allergies (Unverified , 09/29/17) Subjective awake and in no distress. non verbal. vitals stable. Per nurse patient is more awake. Today's labs are pending. Glucose much better Objective Last 24 Hour Vital Signs Date Time Temp Pulse Resp B/P (MAP) Pulse Ox O2 Delivery O2 Flow Rate FiO2 02/03/19 08:00 98.1 79 20 138/65 (89) 100 02/03/19 05:09 100/50 02/03/19 04:00 97.2 70 20 100/50 (67) 97 02/03/19 04:00 71 02/03/19 00:00 105/63 02/03/19 00:00 70 02/03/19 00:00 98.1 74 20 105/63 (77) 98 02/02/19 21:00 Nasal Cannula 2.0 02/02/19 20:00 69 02/02/19 20:00 72 18 95 Nasal Cannula 2.0 28 02/02/19 20:00 97.5 67 20 111/67 (82) 98 02/02/19 20:00 95 Nasal Cannula 2.0 28 02/02/19 17:27 115/61 02/02/19 16:00 69 02/02/19 16:00 98.6 63 18 115/61 (79) 99 02/02/19 12:00 69 02/02/19 12:00 114/69 02/02/19 12:00 98.7 74 18 114/69 (84) 99 02/02/19 11:31 97 Nasal Cannula 2.0 28 02/02/19 11:30 69 20 97 Nasal Cannula 2.0 28 Intake and Output 02/02/19 02/03/19 19:00 07:00 Intake Total 2070 ml 2395.0 ml Output Total 1000 ml 1800 ml Balance 1070 ml 595.0 ml Intake Free Water 1350 ml 1350 ml IV Total 385.0 ml Tube Feeding 720 ml 660 ml Output Urine Total 1000 ml 1800 ml # Bowel Movements 1 Laboratory Tests 02/02/19 17:15: Sodium Level 155H, Potassium Level 4.2, Chloride Level 119H, Carbon Dioxide Level 35H, Anion Gap 1L, Blood Urea Nitrogen 34H, Creatinine 0.6, Estimat Glomerular Filtration Rate > 60, Glucose Level 187H, Lactic Acid Level 1.30, Calcium Level 7.7L Height (Feet): 5 Height (Inches): 5.00 Weight (Pounds): 168 Objective General Appearance: no distress , awake, Nonverbal Lines, tubes and drains: peripheral HEENT: normocephalic, atraumatic, anicteric Neck: non-tender, trach Respiratory/Chest: chest wall non-tender, lungs clear, normal breath sounds, other - Mild respiratory distress Cardiovascular/Chest: normal peripheral pulses, normal rate, regular rhythm, no JVD Abdomen: normal bowel sounds, non tender, soft, feeding tube, other - G-tube in place area is clean dry and intact Extremities: normal range of motion, non-tender, normal inspection, other - No lower extremity edema bilaterally Skin Exam: normal pigmentation, warm/dry, multiple stage Iv sacral pressure ulcers Neurologic: awake, Nonverbal Lymphatic: anterior cervical - No lymphadenopathy Musculoskeletal: contracted Frank Toribio M.D. Feb 03, 2019 10:28
[2019-02-03 12:00] VITALS: BP 108/61
[2019-02-03 12:05] LABS: ANION GAP 0 mmol/L (5-15); BLOOD UREA NITROGEN 29 mg/dL (7-18); CALCIUM 8.1 MG/DL (8.5-10.1); CARBON DIOXIDE 36 MMOL/L (21-32); CHLORIDE 111 MMOL/L (98-107); CREATININE 0.6 MG/DL (0.55-1.30); POTASSIUM 4.2 MMOL/L (3.5-5.1); SODIUM 147 MMOL/L (136-145)
--- NOTE | 2019-02-03 14:12 | NUR ---
DISCHARGE PLANNING: PATIENT HAS BEEN REFERRED BACK AND ACCEPTED TO [facility] T: [phone] ROOM#32C [facility] AT THIS TIME NO DISCHARGE ORDER WILL CALL TO SET UP TRANSPORTATION AT TIME OF DISCHARGE Addendum: 02/03/19 at 1417 by ELIU RESENDEZ LVN BED # GIVEN BY ADMISSION COORDINATOR DONALDO
--- NOTE | 2019-02-03 14:23 | Surgery Progress Note ---
Surgery Progress Note Subjective Additional Comments no acute events comfortable appearing labs noted exam stable Objective Last 24 Hour Vital Signs Date Time Temp Pulse Resp B/P (MAP) Pulse Ox O2 Delivery O2 Flow Rate FiO2 02/03/19 12:30 72 18 96 Nasal Cannula 2.0 28 02/03/19 12:30 96 Nasal Cannula 2.0 28 02/03/19 12:00 98.6 76 20 108/61 (77) 100 02/03/19 12:00 108/61 02/03/19 09:00 Nasal Cannula 2.0 02/03/19 08:00 98.1 79 20 138/65 (89) 100 02/03/19 07:46 78 02/03/19 05:09 100/50 02/03/19 04:00 97.2 70 20 100/50 (67) 97 02/03/19 04:00 71 02/03/19 00:00 105/63 02/03/19 00:00 70 02/03/19 00:00 98.1 74 20 105/63 (77) 98 02/02/19 21:00 Nasal Cannula 2.0 02/02/19 20:00 69 02/02/19 20:00 72 18 95 Nasal Cannula 2.0 28 02/02/19 20:00 97.5 67 20 111/67 (82) 98 02/02/19 20:00 95 Nasal Cannula 2.0 28 02/02/19 17:27 115/61 02/02/19 16:00 69 02/02/19 16:00 98.6 63 18 115/61 (79) 99 I&O Intake and Output 02/02/19 02/03/19 19:00 07:00 Intake Total 2070 ml 2395.0 ml Output Total 1000 ml 1800 ml Balance 1070 ml 595.0 ml Intake Free Water 1350 ml 1350 ml IV Total 385.0 ml Tube Feeding 720 ml 660 ml Output Urine Total 1000 ml 1800 ml # Bowel Movements 1 Dressing: saturated Wound: other Drains: other Cardiovascular: RSR Respiratory: decreased breath sounds Abdomen: soft, present bowel sounds Extremities: no cyanosis, other Laboratory Tests Test 02/02/19 17:15 02/03/19 11:30 Sodium Level 155 MMOL/L (136-145) H 147 MMOL/L (136-145) H Potassium Level 4.2 MMOL/L (3.5-5.1) 4.2 MMOL/L (3.5-5.1) Chloride Level 119 MMOL/L (98-107) H 111 MMOL/L (98-107) H Carbon Dioxide Level 35 MMOL/L (21-32) H 36 MMOL/L (21-32) H Anion Gap 1 mmol/L (5-15) L 0 mmol/L (5-15) L Blood Urea Nitrogen 34 mg/dL (7-18) H 29 mg/dL (7-18) H Creatinine 0.6 MG/DL (0.55-1.30) 0.6 MG/DL (0.55-1.30) Estimat Glomerular Filtration Rate > 60 mL/min (>60) > 60 mL/min (>60) Glucose Level 187 MG/DL (74-106) H 175 MG/DL (74-106) H Lactic Acid Level 1.30 mmol/L (0.4-2.0) Calcium Level 7.7 MG/DL (8.5-10.1) L 8.1 MG/DL (8.5-10.1) L Plan Problems: (1) Stage IV decubitus ulcer Assessment & Plan: Pt presented on admission with multiple pressure injuries and contractures. Full thickness stage 4 sacral pressure injury with undermined borders. Base of wound beefy red with small amt of biofilm.Small amt serous exudate noted. Mild odor noted. Erythematous and denuded borders and periwound. (L)7.5cm x (W)5cm x (D)3.8cm,undermining clockwise 10 - 5 by 6 cm @5o'clock. Full Thickness pressure injury R ischium. Base of wound 50% granular ,50% slough. Edges adherent to base of wound.No odor or exudate noted. Skin tone is darker without induration or erythema periwound. Resolving full thickness pressure injury L Ischium. [place] granulation at base of wound . Edges adhrent to base of wound with surrounding pink epithelial and hyperpigmentation.No odor or exudate noted. Historical scars noted to both heels . Both heels are soft but blanchable. Tx.Plan: Cleanse Sacral wound with Saline. Loosely pack with Hydrogel impregnated Kerlix.Apply Moisture Barrier Paste periwound. Cover with Optifoam drsg. Change Daily and prn. Cleanse R and L Ischial wounds with Saline. Apply Therahoney. Apply Moisture Barrier Paste periwound.Cover with Optifoam drsg.Change Daily and prn. Apply Moisture Barrier Paste to denuded areas on buttocks with each Incontinence care. Apply Cavilon Skin Barrier to both heels. Cover each heel with Optifoam drsg. Change Daily and prn. APM/SELENA Mattress overlay. Reposition at least every 2hours or as tolerated. Off-load heels with pillow. (2) Leukocytosis (3) Sepsis Assessment & Plan: 63-year-old male with leukocytosis, tachycardia, lactic acidosis. Abnormal labs. IV antibiotics as per infectious disease IV fluids local wound care as above Trend labs Wound is unlikely etiology of patient's infectious process is they are clean and chronic and healing will monitor and follow along with recommendations thank you for let me participate in patient's care cont with current care plan Tonio Raza Feb 03, 2019 14:23
--- NOTE | 2019-02-03 14:24 | NUR ---
RD ASSESSMENT & RECOMMENDATIONS SEE CARE ACTIVITY FOR COMPLETE ASSESSMENT DAILY ESTIMATED NEEDS: Needs based on Wounds, sepsis/ 66kg 30-35 kcals/kg 8857-8113 total kcals 1.5-2 g protein/kg 99-132 g total protein 25-35 mL/kg 6190-1735 total fluid mLs NUTRITION DIAGNOSIS: 1) Increased kcal and protein needs r/t wound healing, suspected progressive and significant wt loss as evidenced by pt adm w/ multiple full thickness wounds, including sacral stage 4 wound, refer to WC eval, wt loss of 7lbs/4.6% in 1 month and 23lbs/13.7% in 10 months. 2) Swallowing difficulty r/t dysphagia and h/o CVA as evidenced by pt is PEG dep. CURRENT TF:Glucerna 1.5 @ 60ml/hr x 24 hrs + Rafael 1pkt BID ENTERAL NUTRITION RECOMMENDATIONS: Glucerna 1.5 @ 60ml/hr x 24 hrs to provide 1440ml, 2160kcal, 119g prot, 1093ml free water - Maintain current TF - Water flush of 200ml q 4 hrs - HOB over 30 degrees ADDITIONAL RECOMMENDATIONS: 1) Wound care: Continue Vit C + ZnSO4 2) Monitor BGs closely BG 402 upon adm -> now improved, Levemir added 3) Calibrated bedscale wt for accurate CBW -> Daily wt monitoring given h/o progressive and significant wt loss 4) Monitor lytes, replete as needed 5) Monitor hydration status: Na and BUN trending down
[2019-02-03 16:00] VITALS: BP 109/63
--- NOTE | 2019-02-03 16:45 | Infectious Diseases Prog Note ---
Assessment/Plan Assessment/Plan ASSESSMENT AND PLAN: 1. providencia uti/pyelonephritis, sepsis, sirs, leukocytosis, fevers, ? pna vs atx, ? infected sacral wound, effusion - zosyn and vancomycin - day # 4 combination, discontinue azithromycin since s/p 5 days treatment - f/u on sputum culture - surgery f/u on sacral wound - monitor labs and chest x-ray - leukocytosis and fevers improved 2. The patient has history of CVA and weakness. 3. Diabetes. 4. Hypertension. 5. Hyperlipidemia. 6. Blood sugar and blood pressure treatment for diabetes and hypertension per primary care team. 7. Wound care per Surgery and protocol. 8. Weakness secondary to CVA. 9. History of TIA. 10. G-tube dysphagia. 11. Old trach. 12. History of respiratory failure. 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 14. Paralysis. 15. Dysphagia. 16. Dementia. 17. No known allergies. 18. Social history is negative. 19. Family history is noncontributory. 20. MAR was noted. 21. Case was discussed with RN. 22. Case was discussed with Dr. Toribio. 23. vre colonization, KPC colonization - isolation Subjective Constitutional: Denies: fever HEENT: Reports: congestion - mild Respiratory: Reports: shortness of breath - mild Cardiovascular: Denies: chest pain Gastrointestinal/Abdominal: Denies: nausea, vomiting, diarrhea Genitourinary: Reports: other - + parks - urine slt cloudy Neurologic: Denies: headache Psychiatric: Reports: other - NA Skin: Denies: rash Hematologic: Denies: bleeding Musculoskeletal: Reports: other - NA Allergies: Coded Allergies: No Known Allergies (Unverified , 09/29/17) Objective Vital Signs Last 24 Hour Vital Signs Date Time Temp Pulse Resp B/P (MAP) Pulse Ox O2 Delivery O2 Flow Rate FiO2 02/03/19 16:00 96.8 71 18 109/63 (78) 100 02/03/19 12:30 72 18 96 Nasal Cannula 2.0 28 02/03/19 12:30 96 Nasal Cannula 2.0 28 02/03/19 12:00 98.6 76 20 108/61 (77) 100 02/03/19 12:00 108/61 02/03/19 11:48 78 02/03/19 09:00 Nasal Cannula 2.0 02/03/19 08:00 98.1 79 20 138/65 (89) 100 02/03/19 07:46 78 02/03/19 05:09 100/50 02/03/19 04:00 97.2 70 20 100/50 (67) 97 02/03/19 04:00 71 02/03/19 00:00 105/63 02/03/19 00:00 70 02/03/19 00:00 98.1 74 20 105/63 (77) 98 02/02/19 21:00 Nasal Cannula 2.0 02/02/19 20:00 69 02/02/19 20:00 72 18 95 Nasal Cannula 2.0 28 02/02/19 20:00 97.5 67 20 111/67 (82) 98 02/02/19 20:00 95 Nasal Cannula 2.0 28 02/02/19 17:27 115/61 Height (Feet): 5 Height (Inches): 5.00 Weight (Pounds): 168 General Appearance: no acute distress HEENT: normocephalic, atraumatic, anicteric, supple, no JVD, status post trach Respiratory/Chest: no accessory muscle use, decreased breath sounds, crackles/ rales, rhonchi - bilaterally Cardiovascular: normal rate, regular rhythm, no gallop/murmur, no JVD Abdomen: normal bowel sounds, soft, non tender, no organomegaly, non distended Genitourinary: other - + parks - urine slt cloudy Extremities: no cyanosis Skin: no rash, ulcers - wounds - covered Neurologic/Psychiatric: sales vice president II-XII grossly normal, other - weak, lethargic, opens eyes Lymphatic: no neck adenopathy Musculoskeletal: no effusion Objective Chest x-ray - 02/03/19 - Procedure: XRAY Chest 1v Indication: Infection Technique: One view of the chest Comparison: 02/01/2019 Findings: There is some pleural fluid at the right lung base, appearing increased. There appears to be decreased pleural fluid at the left lung base. Atelectatic changes are again demonstrated at both lung bases. The heart is borderline enlarged. There is minimal interstitial congestion Impression: Increased right and decreased left pleural fluid, over 2 days Otherwise stable findings as described Chest x-ray - 02/01/19 - Procedure: XRAY Chest 1v Indication: Shortness of breath Technique: One view of the chest Comparison: 01/30/2019 Findings: Atelectatic changes and/or consolidation and pleural effusions are demonstrated at both lung bases, left greater than right. This appears increased from the prior study. Heart size is normal. Impression: Increased bibasilar atelectasis and/or consolidation and pleural fluid, over 2 days Microbiology Date/Time Source Procedure Growth Status 01/30/19 18:14 Blood Blood Culture - Preliminary NO GROWTH AFTER 72 HOURS Resulted 02/02/19 03:16 Sputum Gram Stain - Final Resulted 02/02/19 03:16 Sputum Sputum Culture Pending Resulted 01/30/19 17:45 Urine,Clean Catch Urine Culture - Final Providencia Stuartii Complete 01/30/19 19:47 Rectum - Preliminary K.pneumoniae Carbapenem Resist Resulted Microbiology Date/Time Source Procedure Growth Status 02/02/19 03:16 Sputum Gram Stain - Final Resulted 02/02/19 03:16 Sputum Sputum Culture Pending Resulted Labs Test 02/01/19 06:25 02/02/19 02:00 02/02/19 17:15 02/03/19 11:30 White Blood Count 8.5 K/UL (4.8-10.8) 7.3 K/UL (4.8-10.8) Red Blood Count 3.40 M/UL (4.70-6.10) 3.40 M/UL (4.70-6.10) Hemoglobin 9.0 G/DL (14.2-18.0) 8.9 G/DL (14.2-18.0) Hematocrit 30.0 % (42.0-52.0) 29.5 % (42.0-52.0) Mean Corpuscular Volume 88 FL (80-99) 87 FL (80-99) Mean Corpuscular Hemoglobin 26.4 PG (27.0-31.0) 26.3 PG (27.0-31.0) Mean Corpuscular Hemoglobin Concent 29.9 G/DL (32.0-36.0) 30.3 G/DL (32.0-36.0) Red Cell Distribution Width 17.9 % (11.6-14.8) 17.5 % (11.6-14.8) Platelet Count 190 K/UL (150-450) 214 K/UL (150-450) Mean Platelet Volume 10.1 FL (6.5-10.1) 10.3 FL (6.5-10.1) Neutrophils (%) (Auto) 69.5 % (45.0-75.0) 50.6 % (45.0-75.0) Lymphocytes (%) (Auto) 19.4 % (20.0-45.0) 34.8 % (20.0-45.0) Monocytes (%) (Auto) 3.6 % (1.0-10.0) 4.2 % (1.0-10.0) Eosinophils (%) (Auto) 5.9 % (0.0-3.0) 8.8 % (0.0-3.0) Basophils (%) (Auto) 1.5 % (0.0-2.0) 1.7 % (0.0-2.0) Sodium Level 164 MMOL/L (136-145) 161 MMOL/L (136-145) 155 MMOL/L (136-145) 147 MMOL/L (136-145) Potassium Level 3.4 MMOL/L (3.5-5.1) 3.9 MMOL/L (3.5-5.1) 4.2 MMOL/L (3.5-5.1) 4.2 MMOL/L (3.5-5.1) Chloride Level 126 MMOL/L (98-107) 124 MMOL/L (98-107) 119 MMOL/L (98-107) 111 MMOL/L (98-107) Carbon Dioxide Level 35 MMOL/L (21-32) 38 MMOL/L (21-32) 35 MMOL/L (21-32) 36 MMOL/L (21-32) Anion Gap 3 mmol/L (5-15) 1 mmol/L (5-15) 1 mmol/L (5-15) 0 mmol/L (5-15) Blood Urea Nitrogen 45 mg/dL (7-18) 36 mg/dL (7-18) 34 mg/dL (7-18) 29 mg/dL (7-18) Creatinine 0.7 MG/DL (0.55-1.30) 0.6 MG/DL (0.55-1.30) 0.6 MG/DL (0.55-1.30) 0.6 MG/DL (0.55-1.30) Estimat Glomerular Filtration Rate > 60 mL/min (>60) > 60 mL/min (>60) > 60 mL/min (>60) > 60 mL/min (>60) Glucose Level 290 MG/DL (74-106) 154 MG/DL (74-106) 187 MG/DL (74-106) 175 MG/DL (74-106) Calcium Level 7.9 MG/DL (8.5-10.1) 8.3 MG/DL (8.5-10.1) 7.7 MG/DL (8.5-10.1) 8.1 MG/DL (8.5-10.1) Total Bilirubin 0.2 MG/DL (0.2-1.0) 0.2 MG/DL (0.2-1.0) Aspartate Amino Transf (AST/SGOT) 19 U/L (15-37) 18 U/L (15-37) Alanine Aminotransferase (ALT/SGPT) 13 U/L (12-78) 11 U/L (12-78) Alkaline Phosphatase 74 U/L (46-116) 72 U/L (46-116) Total Protein 6.4 G/DL (6.4-8.2) 6.5 G/DL (6.4-8.2) Albumin 1.6 G/DL (3.4-5.0) 1.6 G/DL (3.4-5.0) Globulin 4.8 g/dL 4.9 g/dL Albumin/Globulin Ratio 0.3 (1.0-2.7) 0.3 (1.0-2.7) Vancomycin Level Trough 14.2 ug/mL (5.0-12.0) Lactic Acid Level 1.30 mmol/L (0.4-2.0) Laboratory Tests Test 02/02/19 17:15 02/03/19 11:30 Sodium Level 155 MMOL/L (136-145) H 147 MMOL/L (136-145) H Potassium Level 4.2 MMOL/L (3.5-5.1) 4.2 MMOL/L (3.5-5.1) Chloride Level 119 MMOL/L (98-107) H 111 MMOL/L (98-107) H Carbon Dioxide Level 35 MMOL/L (21-32) H 36 MMOL/L (21-32) H Anion Gap 1 mmol/L (5-15) L 0 mmol/L (5-15) L Blood Urea Nitrogen 34 mg/dL (7-18) H 29 mg/dL (7-18) H Creatinine 0.6 MG/DL (0.55-1.30) 0.6 MG/DL (0.55-1.30) Estimat Glomerular Filtration Rate > 60 mL/min (>60) > 60 mL/min (>60) Glucose Level 187 MG/DL (74-106) H 175 MG/DL (74-106) H Lactic Acid Level 1.30 mmol/L (0.4-2.0) Calcium Level 7.7 MG/DL (8.5-10.1) L 8.1 MG/DL (8.5-10.1) L Current Medications Medications (Trade) Dose Ordered Sig/Patience Route PRN Reason Start Time Stop Time Status Last Admin Dose Admin Acetaminophen (Tylenol) 650 mg Q4H PRN GT HEADACHE AND OR TEMP > 101 01/30/19 23:45 03/01/19 23:44 Acetaminophen (Tylenol) 650 mg Q4H PRN GT PAIN SCALE 3 TO 5 01/30/19 23:45 03/01/19 23:44 Albuterol/ Ipratropium (Albuterol/ Ipratropium) 3 ml EVERY 6 HOURS PRN HHN Shortness of Breath 01/30/19 23:30 02/04/19 23:29 Ascorbic Acid (Vitamin C) 500 mg DAILY GT 01/31/19 09:00 03/02/19 08:59 02/03/19 10:04 Aspirin (ASA) 81 mg DAILY GT 01/31/19 09:00 03/02/19 08:59 02/03/19 10:04 Azithromycin 500 mg/Dextrose 275 ml @ 275 mls/hr Q24HRS IV 01/31/19 18:00 02/03/19 18:00 02/02/19 17:32 Bisacodyl (Dulcolax) 10 mg DAILYPRN PRN RECTAL Constipation 01/31/19 07:03 03/02/19 07:02 Clonidine HCl (Catapres Tab) 0.1 mg EVERY 6 HOURS GT 01/31/19 00:00 03/02/19 00:00 02/01/19 06:07 Dextrose (Dextrose 50%) 25 ml Q30M PRN IV Hypoglycemia 01/31/19 17:15 03/02/19 17:14 Dextrose (Dextrose 50%) 50 ml Q30M PRN IV Hypoglycemia 01/31/19 17:15 03/02/19 17:14 Diphenhydramine HCl (Benadryl) 25 mg Q6H PRN GT Itching 01/30/19 23:45 03/01/19 23:44 Docusate Sodium (Colace) 100 mg DAILY GT 01/31/19 09:00 03/02/19 08:59 02/03/19 10:04 Heparin Sodium (Porcine) (Heparin 5000 units/ml) 5,000 units EVERY 12 HOURS SUBQ 01/31/19 09:00 03/02/19 08:59 02/03/19 10:06 Insulin Aspart (NovoLOG) Q6HR SUBQ 01/31/19 18:00 03/02/19 17:59 02/03/19 12:26 Insulin Detemir (Levemir) 20 units QHS SUBQ 02/03/19 21:00 03/03/19 20:59 Lansoprazole (Prevacid) 30 mg DAILY@0630 GT 01/31/19 06:30 03/02/19 06:29 02/03/19 06:25 Magnesium Hydroxide (Mom) 30 ml DAILYPRN PRN GT Constipation 02/01/19 17:45 03/03/19 17:44 Midodrine (Pro-Amatine) 10 mg THREE TIMES A DAY GT 01/31/19 09:00 03/02/19 08:59 02/03/19 12:25 Multivitamins (Multivitamins W/ Minerals 15ml Liquid) 15 ml DAILY GT 01/31/19 09:00 03/02/19 08:59 02/03/19 10:04 Piperacillin Sod/ Tazobactam Sod 3.375 gm/Sodium Chloride 110 ml @ 27.5 mls/hr Q8HR IVPB 01/31/19 14:00 02/07/19 13:59 02/03/19 14:37 Potassium Chloride (K-Dur) 20 meq DAILY GT 01/31/19 09:00 03/02/19 08:59 02/03/19 10:04 Sennosides (Senokot) 8.6 mg BEDTIME GT 01/31/19 21:00 03/02/19 20:59 02/02/19 22:22 Sodium Phosphate (Fleet's Sodium Phosl Enema) 133 ml DAILYPRN PRN RECTAL Constipation 02/01/19 17:45 03/03/19 17:44 Vancomycin HCl (Vanco rx to dose) 1 ea DAILY PRN MISC Per rx protocol 01/31/19 11:45 03/02/19 11:44 Vancomycin HCl 1 gm/Dextrose 275 ml @ 183.708 mls/hr Q12HR@0300,1500 IVPB 01/31/19 15:00 02/05/19 14:59 02/03/19 14:37 Zinc Sulfate (Zinc Sulfate) 220 mg DAILY GT 01/31/19 09:00 03/02/19 08:59 02/03/19 10:04 Gwendolyn Marquez MD Feb 03, 2019 16:45
[2019-02-03] MEDS: Azithromycin 500 MG in D5W 275 ML IV SCH (17:58)
--- NOTE | 2019-02-03 19:25 | NUR ---
HAND-OFF: Report given to MARIA ELENA Jim. Pt stable.
--- NOTE | 2019-02-03 19:26 | NUR ---
NURSE NOTES: Received report from Tiffany ARREDONDO. PT is AO x1 non verbal. No acute distress noted. Call light is within reach. Bed alarm is on. HOB >45 degree. Rails are up x3. ON P200 matrass.
[2019-02-03 20:00] VITALS: BP 116/66
[2019-02-03] MEDS: Sennosides 8.6mg tab GT SCH (20:52)
[2019-02-03] MEDS ORDERED: Levemir Flexpen SUBQ SCH (21:00)
[2019-02-04] VITALS: BP 104/60
--- NOTE | 2019-02-04 | NUR ---
NURSE NOTES: Wasted Clonidine since the BP is Low BP 104/60
[2019-02-04] MEDS: NovoLOG Insulin Flexpen SUBQ SCH ×3 (00:13→12:24)
[2019-02-04] MEDS: Vancomycin 1gm in D5W 275ml IVPB SCH (03:15)
[2019-02-04 04:00] VITALS: BP 117/71
[2019-02-04] MEDS: Piperacillin/Tazobactam 3.375 GM in NS 110 ML IVPB SCH (06:09)
--- NOTE | 2019-02-04 07:07 | NUR ---
HAND-OFF: Report given to Tiffany ARREDONDO.
--- NOTE | 2019-02-04 07:24 | NUR ---
NURSE NOTES: Received report from MARIA ELENA Jim. Pt in bed, asleep, respiration unlabored and regular, g-tube feeding running according to order, IV Zosyn running, bed in lowest position, call light within reach.
[2019-02-04 07:27] LABS: ANION GAP 5 mmol/L (5-15); BLOOD UREA NITROGEN 28 mg/dL (7-18); CALCIUM 9.1 MG/DL (8.5-10.1); CARBON DIOXIDE 28 MMOL/L (21-32); CHLORIDE 113 MMOL/L (98-107); CREATININE 0.5 MG/DL (0.55-1.30); POTASSIUM 4.3 MMOL/L (3.5-5.1); SODIUM 146 MMOL/L (136-145)
[2019-02-04 07:33] LABS: BASOPHILS % (AUTO) 1.2 % (0.0-2.0); EOSINOPHILS % (AUTO) 5.5 % (0.0-3.0); HEMATOCRIT 32.9 % (42.0-52.0); HEMOGLOBIN 10.2 G/DL (14.2-18.0); LYMPHOCYTES % (AUTO) 25.6 % (20.0-45.0); MEAN CORPUSCULAR VOLUME 86 FL (80-99); NEUTROPHILS % (AUTO) 63.7 % (45.0-75.0); PLATELET COUNT 264 K/UL (150-450); RED BLOOD COUNT 3.84 M/UL (4.70-6.10); RED CELL DISTRIBUTION WIDTH 17.5 % (11.6-14.8); WHITE BLOOD COUNT 9.1 K/UL (4.8-10.8)
[2019-02-04 08:00] VITALS: BP 103/57
[2019-02-04] MEDS: Zinc Sulfate 220mg cap GT SCH (09:11)
[2019-02-04] MEDS: Docusate 100mg/10ml Liq GT SCH (09:11)
[2019-02-04] MEDS: Multivitamins W/Minerals 15 ML UDC GT SCH (09:11)
[2019-02-04] MEDS: Aspirin Baby 81mg GT SCH (09:11)
[2019-02-04] MEDS: Ascorbic Acid 500mg tab GT SCH (09:11)
[2019-02-04] MEDS: Midodrine 10mg tab GT SCH ×2 (09:12→12:23)
[2019-02-04] MEDS: Heparin 5000 units/ml inj SUBQ SCH (09:13)
--- NOTE | 2019-02-04 09:23 | Discharge Summary ---
Discharge Summary Hospital Course Date of Admission Jan 30, 2019 at 18:30 Date of Discharge 02/04/2019 Admitting Diagnosis hyperglycemia/fever HPI Gerard Aldridge is a 63 year old male who was admitted on Jan 30, 2019 at 18:30 for Hyperglycemia/Fever Consultations General surgery: Dr. Raza, ID: Dr. Leach Hospital Course 63 year old diabetic man with above history admitted for sepsis secondary to gram negative UTI/pyelonephritis, severe dehydration, hyperosmolar hyperglycemic non ketotic state. Doubt sacral wounds are infected. Stop IV NS, free water deficit 2.5 L, increase free water via PEG to 450 ml q 4hr, check Na q12 hr to avoid overcorrection, sodium corrected. Decrease free water to 400 ml q 6hr IV zosyn, Vancomycin and Azithromycin. s/p 5 days of Azithromycin. Stop Vancomycin since to MRSA. Continue Zosyn for another 5 days. ID consult appreciated follow up cultures: urine cx grew Providencia Stuarti, sensitive to Zosyn. sputum with gram negative rods, pending sensitivities. d/w ID chest xray: Development of basilar infiltrates versus atelectasis monitor bun/cr, avoid nephrotoxic medications wound care Monitor wbc, bun/cr, avoid nephrotoxic medications Increased Levemir 17 units qhs to 20 units , sliding scale as needed q6hr nutrition consult vte ppx; heparin Gi ppx: ppi Full code- attempt to find DPOA, or family to discuss. Not successful case d/w rn, and consultants Exam on discharge: General Appearance: no distress , awake, Nonverbal Lines, tubes and drains: peripheral HEENT: normocephalic, atraumatic, anicteric Neck: non-tender, trach Respiratory/Chest: chest wall non-tender, lungs clear, normal breath sounds, other - Mild respiratory distress Cardiovascular/Chest: normal peripheral pulses, normal rate, regular rhythm, no JVD Abdomen: normal bowel sounds, non tender, soft, feeding tube, other - G-tube in place area is clean dry and intact Extremities: normal range of motion, non-tender, normal inspection, other - No lower extremity edema bilaterally Skin Exam: normal pigmentation, warm/dry, multiple stage Iv sacral pressure ulcers Neurologic: awake, Nonverbal Lymphatic: anterior cervical - No lymphadenopathy Musculoskeletal: contracted I spent 35 minutes on this encounter. >50% spent on counselling and care coordination Discharge Medications New Medications: Insulin Detemir (Levemir) 100 Unit/1 Ml Vial 20 UNITS SUBQ BEDTIME for 30 Days, #1 VIAL 3 Refills Votlqotcvvow-Edjo-Jwsqzidd,Iso (Zosyn 3.375 Gm Pre Mix-Bag) 3.375 Gm/50 Ml Froz.piggy 3.375 GM IVPB EVERY 8 HOURS for 5 Days, #5 BAG Continued Medications: Acetaminophen (Tylenol) 325 Mg Tablet 650 MG GT Q4HR PRN for Prn Headache/Temp > 101, #30 TAB 0 Refills Acetaminophen (Tylenol) 325 Mg Tablet 650 MG GT Q4HR PRN for Pain Scale (3-5), #30 TAB 0 Refills Amino Acids/Protein Hydrolys (Pro-Stat Liquid) 30 Ml Liquid.pkt 30 ML GT BID for wound management, ML Ascorbic Acid* (Ascorbic Acid*) 500 Mg Tablet 500 MG GT DAILY, TAB Aspirin* (Aspir 81*) 81 Mg Tablet.dr 81 MG GT DAILY for cva prophylaxis, TAB Bisacodyl (Bisacodyl) 10 Mg Supp.rect 10 MG RC DAILY PRN for Constipation, SUPP IF MOM IS INEFFECTIVE Clonidine Hcl* (Catapres*) 0.1 Mg Tablet 0.1 MG GT EVERY 6 HOURS for HTN (SBP>160), TAB Cran/Vitc/Mannose/Inulin/Brom (Uti-Stat Liquid) 3,875 Mg/30 Ml Liquid 3875 MG GT EVERY 12 HOURS for uti prophylaxis, ML Docusate Sodium* (Colace*) 100 Mg Capsule 100 MG GT DAILY for stool softener, CAP Insulin Aspart (Novolog) 100 Unit/1 Ml Vial BEFORE MEALS AND AT BEDTIME PER SLIDING SCALE Ipratropium/Albuterol Sulfate (DuoNeb 0.5-3(2.5)mg/3ml) 3 Ml Ampul.neb 3 ML HHN Q6HR PRN for Shortness of Breath, EA Magnesium Hydroxide* (Milk Of Magnesia*) 400 Mg/5 Ml Oral.susp 30 ML GT QHS for constipation, ML Midodrine (Midodrine HCl) 10 Mg Tablet 10 MG GT THREE TIMES A DAY for orthostatic hypotension, TAB Multivitamin with Minerals (Multivitamins with Minerals) 1 Each Tablet 1 TAB GT DAILY for wound healing , TAB Na Phos,M-B/Na Phos,Di-Ba* (Fleet Enema*) 133 Ml Enema 133 ML RECTAL QOD PRN for Constipation, ML 0 Refills USE IF BISACODYL INEFFECTIVE Pantoprazole* (Protonix*) 40 Mg Tablet.dr 40 MG GT DAILY for gerd, TAB Potassium Chloride (K-Tab ER) 20 Meq Tablet.er 20 MEQ ORAL DAILY for 30 Days, #30 TAB Sennosides (Senna) 8.6 Mg Tablet 17.2 MG GT BEDTIME for bowel movement, TAB Tramadol Hcl* (Ultram*) 50 Mg Tablet 50 MG GT DAILY PRN for For Pain, 0 Refills Zinc Sulfate (Zinc Sulfate*) 220 Mg Capsule 220 MG GT DAILY for wound healing, CAP 0 Refills Discharge Condition Upon Discharge: stable Discharge Disposition Patient was discharged to SNF Discharge Diagnoses: (1) Sepsis (2) Hyperosmolar non-ketotic state in patient with type 2 diabetes mellitus (3) Protein-calorie malnutrition, severe (4) Acute CVA (cerebrovascular accident) (5) Stage IV decubitus ulcer (6) Hypernatremia (7) UTI (urinary tract infection) (8) Pneumonia (9) Acute kidney injury Frank Toribio M.D. Feb 04, 2019 09:23
--- NOTE | 2019-02-04 10:12 | NUR ---
DISCHARGE PLANNING: PATIENT HAS BEEN REFERRED ACCEPTED BACK TO [facility] T: [phone] FOR NURSE TO NURSE REPORT ROOM#32C LONG-TERM BED # GIVEN BY ADMISSION COORDINATOR [facility] PICKUP TIME @1233
[2019-02-04] MEDS ORDERED: ZOSYN 3.373.375 GM/1 IVPB (11:00)
[2019-02-04] MEDS ORDERED: LEVEMIR100 UNIT/1 SUBQ (11:02)
[2019-02-04 12:00] VITALS: BP 102/80
--- NOTE | 2019-02-04 13:16 | NUR ---
NURSE NOTES: Pt discharged to [facility], no belongings, IV intact and patent for continuing IV Abx at [facility]. ID band removed, tele box removed, pt stable for discharge. Called Report to Soledad, nurse at [facility]
[2019-02-04] MEDS ORDERED: Tubing IV Secondary IV ONE ×2 (13:17)
--- NOTE | 2019-02-04 14:52 | NUR ---
*-* INSURANCE *-* ALL AVAILABLE CLINICALS HAVE BEEN FAXED TO: [facility] CM: SANDRA #[phone] FAX#[phone] REVIEWS/CLINICALS
== END 2019-02-04 13:18 | DRG 720 ==
LOC: EDBD 17:20 → EMR 18:19 → 2E 18:30 → EDBEDREQ 20:41
DX: A41.9 Sepsis, unspecified organism (principal); E11.00 Type 2 diabetes mellitus with hyperosmolarity without nonketotic hyperglycemic-hyperosmolar coma (NKHHC); L89.154 Pressure ulcer of sacral region, stage 4; L89.214 Pressure ulcer of right hip, stage 4; L89.224 Pressure ulcer of left hip, stage 4; N39.0 Urinary tract infection, site not specified; E87.0 Hyperosmolality and hypernatremia; J18.9 Pneumonia, unspecified organism; N17.9 Acute kidney failure, unspecified; E86.0 Dehydration; F03.90 Unspecified dementia, unspecified severity, without behavioral disturbance, psychotic disturbance, mood disturbance, and anxiety; E43 Unspecified severe protein-calorie malnutrition; I69.359 Hemiplegia and hemiparesis following cerebral infarction affecting unspecified side; E78.5 Hyperlipidemia, unspecified; B96.89 Other specified bacterial agents as the cause of diseases classified elsewhere; R13.10 Dysphagia, unspecified; Z93.1 Gastrostomy status; E11.43 Type 2 diabetes mellitus with diabetic autonomic (poly)neuropathy; E11.65 Type 2 diabetes mellitus with hyperglycemia; Z79.4 Long term (current) use of insulin
CPT/HCPCS: 36415; 71045; 80048; 80053; 80202; 81003; 82009; 82962; 83605; 83735; 85025; 87040; 87070; 87081; 87086; 87181; 87205; 93005; 94664; 96361; 96365; 96368; 96375; 99291; J1815; J7030; J8499; S5561

== ENCOUNTER 2019-09-24 04:36 | Inpatient (IN) | payer OTHER ==
[~2019-09-24] VITALS: Ht 172.7 cm; Wt 68.1 kg
[~2019-09-24 04:36] MED LIST changes: +ASCORBIC ACID500 MG GT; +BISACODYL10 M1 RC; +CATAPRES0.1 MG GT; +LEVEMIR100 UNIT/1 SUBQ; +NOVOLOG100 UNIT/5; +TRAMADOL HCL50 MG GT; +ZINC SULFATE220 M1 GT; +ZOSYN 3.373.375 GM/1 IVPB
--- NOTE | 2019-09-24 04:40 | NUR ---
ED Nurse Note: BROUGHT IN BY MICKEY RA 67 FROM [facility] FOR COUGH AND CONGESTION. PER EMS, PT WAS TESTED POSITIVE 1 MONTH AGO AND IS "DUE FOR PNEUMONIA" STATED BY SNF STAFF. PT O2 AT 99% RA, VSS, NAD, AAOX1, NONAMBULATORY. ERMD AT BEDSIDE. PT PLACED IN DROPLET ISOLATION WITH A MASK.
--- NOTE | 2019-09-24 04:44 | Emergency Room Report ---
History of Present Illness General Chief Complaint: Upper Respiratory Illness Source: Medical Record, EMS Present Illness HPI This is a 64-year-old male who is nonverbal and has multiple medical problems. He resides in a fci. He has a history of diabetes, recurrent pneumonia who presents with chief complaint of cough and shortness of breath. Onset tonight. Unable to get any history from this patient because of his condition and nonverbal state. Per EMS, he had been coughing and get recurrent pneumonia. jail said he was hypoxic but he is 97% on room air per EMS. He tested positive for COVID last month. 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 COVID-19 Screening: Positive COVID-19 COVID-19 Testing Source: info on records Patient History Past Medical History: see triage record, old chart reviewed Past Surgical History: other Pertinent Family History: none Social History: Denies: smoking Immunizations: other Reviewed Nursing Documentation: PMH: Agreed; PSxH: Agreed Nursing Documentation-PMH Hx Cardiac Problems: Yes - cva LT side weakness, HF, hemiplegia, TIA, hyperlipidemia Hx Hypertension: Yes Hx COPD: Yes - pneumonia Hx Diabetes: Yes - DM II Hx Cancer: No Hx Gastrointestinal Problems: Yes - g-tube, uti Hx Neurological Problems: Yes - dysphagia, demenita, dysfunction of bladder Hx Cerebrovascular Accident: Yes Hx Transient Ischemic Attacks: Yes Hx Paralysis: Yes 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 Hx Dysphasia: Yes Review of Systems Respiratory: Reports: cough, shortness of breath All Other Systems: limited - Patient is nonverbal Physical Exam Vital Signs Date Time Temp Pulse Resp B/P (MAP) Pulse Ox O2 Delivery O2 Flow Rate FiO2 09/24/19 04:37 96.8 8 16 124/76 (92) 96 Room Air Vitals normal Sp02 EP Interpretation: reviewed, normal General Appearance: no apparent distress, Chronically Ill Head: normocephalic, atraumatic Eyes: bilateral eye PERRL, bilateral eye EOMI ENT: hearing grossly normal, normal pharynx Neck: full range of motion, supple, no meningismus Respiratory: chest non-tender, lungs clear, normal breath sounds Cardiovascular #1: regular rate, rhythm, no murmur Gastrointestinal: normal bowel sounds, non tender, no mass, no organomegaly, no bruit, non-distended Musculoskeletal: other - Contracted. Sacral ulcers. Heel ulcers. Psychiatric: mood/affect normal Medical Decision Making Diagnostic Impression: Primary Impression: Acute encephalopathy Additional Impression: Sacral decubitus ulcer Qualified Codes: L89.159 - Pressure ulcer of sacral region, unspecified stage ER Course This patient presents with cough and reported increasing weakness and hypoxia. There is no hypoxia. Chest x-ray is clear. Because of his multiple risk factors and previous Klebsiella pneumonia in the sputum which is multidrug- resistant will admit versus transfer. I discussed the case with Dr. Whitten who will admit EKG Diagnostic Results Rate: normal Rhythm: NSR ST Segments: no acute changes Rhythm Strip Diag. Results EP Interpretation: yes Rate: 65 Rhythm: NSR, no PVC's, no ectopy Last Vital Signs Date Time Temp Pulse Resp B/P (MAP) Pulse Ox O2 Delivery O2 Flow Rate FiO2 09/24/19 04:37 96.8 8 16 124/76 (92) 96 Room Air Status: improved Disposition: ADMITTED INPATIENT Condition: Serious Arsenio Blandon MD Sep 24, 2019 04:44
--- NOTE | 2019-09-24 04:50 | NUR ---
ED Nurse Note: BLOOD, COVID SWAB, URINE DRAWN AND SENT TO LAB. XR AT BEDSIDE
--- NOTE | 2019-09-24 05:00 | NUR ---
ED Nurse Note: COVID NEGATIVE PER RAPID COVID SWAB 09/24/2019 RESULTS
[2019-09-24 05:08] VITALS: BP 123/73
[2019-09-24] MEDS ORDERED: NORCO 5-325 TA1 EAC1 ORAL (05:08)
[2019-09-24] MEDS ORDERED: LANTUS SOL100 UNIT/1 SUBQ (05:08)
--- NOTE | 2019-09-24 05:11 | NUR ---
ED Nurse Note: GAVE REPORT TO SAQIB ARREDONDO. ENDORSED PLAN OF CARE OF PATIENT.
[2019-09-24 05:29] LABS: BASOPHILS % (AUTO) 1.6 % (0.0-2.0); EOSINOPHILS % (AUTO) 4.9 % (0.0-3.0); HEMATOCRIT 39.7 % (42.0-52.0); HEMOGLOBIN 12.2 G/DL (14.2-18.0); LYMPHOCYTES % (AUTO) 27.9 % (20.0-45.0); MEAN CORPUSCULAR VOLUME 80 FL (80-99); NEUTROPHILS % (AUTO) 61.7 % (45.0-75.0); PLATELET COUNT 365 K/UL (150-450); RED BLOOD COUNT 4.96 M/UL (4.70-6.10); RED CELL DISTRIBUTION WIDTH 16.4 % (11.6-14.8); WHITE BLOOD COUNT 8.7 K/UL (4.8-10.8)
[2019-09-24 05:33] LABS: APPEARANCE,URINE TURBID; BILIRUBIN, URINE NEGATIVE (NEGATIVE); GLUCOSE, URINE (UA) NEGATIVE (NEGATIVE); KETONES,URINE NEGATIVE (NEGATIVE); LEUKOCYTE ESTERASE ,URINE 2+ (NEGATIVE); NITRITE,URINE NEGATIVE (NEGATIVE); PH,URINE 8 (4.5-8.0); PROTEIN,URINE 2+ (NEGATIVE); UROBILINOGEN,URINE NORMAL MG/DL (0.0-1.0)
[2019-09-24 05:37] LABS: COLOR,URINE YELLOW
[2019-09-24 05:39] LABS: ANION GAP 2 mmol/L (5-15); BLOOD UREA NITROGEN 21 mg/dL (7-18); CALCIUM 9.3 MG/DL (8.5-10.1); CARBON DIOXIDE 34 MMOL/L (21-32); CHLORIDE 101 MMOL/L (98-107); CREATININE 0.8 MG/DL (0.55-1.30); POTASSIUM 4.2 MMOL/L (3.5-5.1); SODIUM 137 MMOL/L (136-145)
[2019-09-24 05:55] LABS: ALANINE AMINOTRANSFERASE 26 U/L (12-78); ALBUMIN 3.3 G/DL (3.4-5.0); ALBUMIN/GLOBULIN RATIO 0.6 (1.0-2.7); ALKALINE PHOSPHATASE 114 U/L (46-116); ASPARTATE AMINO TRANSFERASE 28 U/L (15-37); BILIRUBIN,TOTAL 0.3 MG/DL (0.2-1.0); CKMB 2.3 NG/ML (0.0-3.6); CREATINE KINASE 77 U/L (26-308)
--- NOTE | 2019-09-24 06:14 | NUR ---
ED Nurse Note: CRE/VRE AND MRSA SENT TO LAB. Pictures of pressure ulcer on coccyx taken and documented. Belongings list completed. Pt resting in bed, VSS no ss of distress noted. will continue to monitor.
--- NOTE | 2019-09-24 06:17 | Diagnostic Imaging Report ---
EXAM: XR Chest, 1 View CLINICAL HISTORY: SOB TECHNIQUE: Frontal view of the chest. COMPARISON: 02/03/19 FINDINGS: Lungs: There is mild pulmonary venous congestion. No consolidating infiltrate is identified. Pleural space: Unremarkable. No pneumothorax. Heart: There is mild cardiomegaly. Mediastinum: Unremarkable. Bones/joints: Unremarkable. IMPRESSION: Mild cardiomegaly and pulmonary venous congestion.
--- NOTE | 2019-09-24 07:04 | NUR ---
HAND-OFF: Report given to MARIA ELENA BENSON.
--- NOTE | 2019-09-24 07:05 | NUR ---
ED Nurse Note: Received report from Lucy ARREDONDO. Patient resting in bed, no s/s of acute distress. Breathing even and unlabored, SR on the satellite project site monitor, O2 sat 98% on room air. Bed in lowest position, call light within reach.
[2019-09-24 07:10] VITALS: BP 134/76
--- NOTE | 2019-09-24 09:00 | NUR ---
ED Nurse Note: Patient resting in bed, no s/s of acute distress. Breathing even and unlabored. Will continue to monitor.
--- NOTE | 2019-09-24 09:15 | History & Physical ---
History and Physical History & Physicial Full Dictation completed. Geo Whitten MD Sep 24, 2019 09:15
[2019-09-24 09:16] VITALS: BP 136/74
--- NOTE | 2019-09-24 09:45 | NUR ---
ED Nurse Note: Report given to Zoraida ARREDONDO on Med-Surg.
--- NOTE | 2019-09-24 10:00 | NUR ---
NURSE NOTES: patient was admitted to [facility] from ER via [facility] under care dx of metabolic encephalopathy and cough. alert. non verbal. disoriented. no respiratory distress noted on room air. no facial grimacing during care. GT site intact with short feeding tube. head to toe assessment done. positive bowel sound all four quadrant. lung sound clear. f/c draining with moderate sediment. tear on penile area. sacral pressure injury st 4 with serosangenious drainage. both heels redness. necrotic dry toes on both feet. foot drop noted. wound pictures were taken and uploaded. checked and counted belonging with ER nurse. patient was not able to sign on paper. bed in the lowest position and locked. HOB at all times. call light within reach. will continue to provide plan of care.
--- NOTE | 2019-09-24 10:30 | NUR ---
NURSE NOTES: notified Dr. Whitten and received admission orders. order noted and carried out.
--- NOTE | 2019-09-24 11:15 | History and Physical Report ---
DATE OF ADMISSION: 09/24/2019 SOURCE OF INFORMATION: The patient and EMR. HISTORY OF PRESENT ILLNESS: The patient is a 64-year-old male from care home, poor historian. The patient is not communicative verbally. The patient does not follow the commands. This is significantly limited evaluation. Based on the ER attending documentation, the patient had been referred from care home secondary to worsening of mental status and some shortness of breath. At the initial evaluation in the emergency room, the patient relatively hypothermia and the chest x-ray demonstrated some congestions in the lung. The remainder of information cannot be obtained. ALLERGIES: NKDA. FAMILY HISTORY: Noncontributory. PAST MEDICAL HISTORY: Including, but not limited to CVA, paraplegia, diabetes. CURRENT HOSPITAL MEDICATIONS: Including, but not limited to aspirin, clonidine, sliding scale insulin. PHYSICAL EXAMINATION: VITAL SIGNS: Blood pressure 120/80, temperature 96.8. HEAD AND NECK: Atraumatic and normocephalic. CHEST: Diffuse bronchial breathing sounds. HEART: S1 and S2. Regular rate and rhythm. ABDOMEN: Soft. PEG tube is in place. NEUROLOGIC: The patient is aphasic, however, is awake. MUSCULOSKELETAL: quadriparesis and paraplegic. LABORATORY DATA: Dated September 23, sodium 137, hemoglobin 12.2, platelets 365,000. Urine has few bacteria. ASSESSMENT: 1. General deconditioning. 2. History of CVA. 3. Dysphagia. 4. Debility, deconditioning, bedbound, quadriparesis. 5. Normocytic anemia. 6. Diabetes type 2. 7. GI and DVT prophylaxis. PLAN OF CARE: We will recheck the COVID test, this time with a PCR based, resume care home medication. Nephrology, Infectious Disease, Pulmonary services will be consulted. Geo Whitten M.D. DR: AKIRA JOB#: [id number] CC:
[2019-09-24] MEDS ORDERED: Milk of Magnesia 30ml Ud GT PRN (11:30)
[2019-09-24] MEDS ORDERED: Fleet's Enema 133ml RECTAL PRN (11:30)
[2019-09-24] MEDS ORDERED: HYDROcodone/Acetamin 5/325 tab GT PRN (11:30)
[2019-09-24] MEDS ORDERED: Acetaminophen 650mg/20.3ml GT PRN ×2 (11:30)
[2019-09-24 12:00] VITALS: BP 113/69
--- NOTE | 2019-09-24 12:00 | NUR ---
CHARGE NURSE NOTE: Pt - acuity 4, has a deep sacral wound, stage 4. notified about a consult. p200 mattress ordered (spoke with [facility]).
--- NOTE | 2019-09-24 12:32 | Consultation ---
History of Present Illness General Date patient seen: Sep 24, 2019 Chief Complaint: Upper Respiratory Illness Present Illness HPI 64-year-old male who is nonverbal and has multiple medical problems. He resides in a care home. He has a history of diabetes, recurrent pneumonia who presents with chief complaint of cough and shortness of breath. Onset tonight. Unable to get any history from this patient because of his condition and nonverbal state. Per EMS, he had been coughing and get recurrent pneumonia. alf said he was hypoxic but he is 97% on room air per EMS. He tested positive for COVID last month. Patient is well-known to me and admission surgery called to evaluate and assist with care as patient has malnutrition a slow healing sacral decubitus ulcer which has required extensive care and management. Patient seen, patient evaluated, chart reviewed Allergies: Coded Allergies: No Known Allergies (Unverified , 09/29/17) Medication History Scheduled Amino Acids/Protein Hydrolys (Pro-Stat Liquid), 30 ML GT BID, (Reported) Ascorbic Acid* (Ascorbic Acid*), 500 MG GT DAILY, (Reported) Aspirin* (Aspir 81*), 81 MG GT DAILY, (Reported) Clonidine Hcl* (Catapres*), 0.1 MG GT EVERY 6 HOURS, (Reported) Cran/Vitc/Mannose/Inulin/Brom (Uti-Stat Liquid), 3,875 MG GT EVERY 12 HOURS, ( Reported) Docusate Sodium* (Colace*), 100 MG GT DAILY, (Reported) Insulin Detemir (Levemir), 20 UNITS SUBQ BEDTIME Insulin Glargine (Lantus), 10 SUBQ BEDTIME, (Reported) Magnesium Hydroxide* (Milk Of Magnesia*), 30 ML GT QHS, (Reported) Midodrine (Midodrine HCl), 10 MG GT THREE TIMES A DAY, (Reported) Multivitamin with Minerals (Multivitamins with Minerals), 1 TAB GT DAILY, ( Reported) Pantoprazole* (Protonix*), 40 MG GT DAILY, (Reported) Vepqzcyjlqcc-Kwzf-Ykxtrbvq,Iso (Zosyn 3.375 Gm Pre Mix-Bag), 3.375 GM IVPB EVERY 8 HOURS Potassium Chloride (K-Tab ER), 20 MEQ ORAL DAILY Sennosides (Senna), 17.2 MG GT BEDTIME, (Reported) Zinc Sulfate (Zinc Sulfate*), 220 MG GT DAILY, (Reported) Scheduled PRN Acetaminophen (Tylenol), 650 MG GT Q4HR PRN for Prn Headache/Temp > 101, ( Reported) Acetaminophen (Tylenol), 650 MG GT Q4HR PRN for Pain Scale (3-5), (Reported) Bisacodyl (Bisacodyl), 10 MG RC DAILY PRN for Constipation, (Reported) Hydrocodone Bit/Acetaminophen 5-325* ([place] 5-325 Tablet*), 1 TAB ORAL Q6H PRN for FOR PAIN, (Reported) Ipratropium/Albuterol Sulfate (DuoNeb 0.5-3(2.5)mg/3ml), 3 ML HHN Q6HR PRN for Shortness of Breath, (Reported) Na Phos,M-B/Na Phos,Di-Ba* (Fleet Enema*), 133 ML RECTAL QOD PRN for Constipation, (Reported) Tramadol Hcl* (Ultram*), 50 MG GT DAILY PRN for For Pain, (Reported) Miscellaneous Medications Insulin Aspart (Novolog), (Reported) Patient History Limited by: medical condition Healthcare decision maker N Resuscitation status Advanced Directive on File Past Medical/Surgical History Past Medical/Surgical History: (1) Hypokalemia (2) Septic shock (3) Hypocalcemia (4) Fever (5) Leukocytosis (6) Sepsis (7) Stage IV decubitus ulcer (8) History of CVA (cerebrovascular accident) (9) Acute kidney injury (10) Acute CVA (cerebrovascular accident) (11) Dehydration (12) Protein-calorie malnutrition, severe (13) Hyperosmolar hyperglycemic coma due to diabetes mellitus without ketoacidosis (14) Hyperosmolar non-ketotic state in patient with type 2 diabetes mellitus (15) Acute encephalopathy (16) Sacral decubitus ulcer Review of Systems ROS Narrative Unable to obtain given patient's baseline medical condition Physical Exam General Appearance: no apparent distress Lines, tubes and drains: peripheral HEENT: normocephalic, atraumatic, anicteric, mucous membranes moist Neck: supple, normal inspection Respiratory/Chest: no respiratory distress, no accessory muscle use, decreased breath sounds Cardiovascular/Chest: normal rate, regular rhythm Abdomen: soft, no organomegaly, no mass, other Extremities: normal inspection, no calf tenderness, normal capillary refill Skin Exam: warm/dry, other Neurologic: alert, unresponsiveness Last 24 Hour Vital Signs Date Time Temp Pulse Resp B/P (MAP) Pulse Ox O2 Delivery O2 Flow Rate FiO2 09/24/19 09:45 97.3 75 16 136/74 99 Room Air 99 09/24/19 09:16 97.3 75 16 136/74 99 Room Air 09/24/19 07:10 97.3 78 17 134/76 98 Room Air 09/24/19 05:08 97.2 76 16 123/73 99 Room Air 09/24/19 05:08 76 16 Room Air 99 09/24/19 04:37 96.8 80 16 124/76 (92) 96 Room Air Laboratory Tests Test 09/24/19 04:45 09/24/19 05:00 White Blood Count 8.7 K/UL (4.8-10.8) Red Blood Count 4.96 M/UL (4.70-6.10) Hemoglobin 12.2 G/DL (14.2-18.0) L Hematocrit 39.7 % (42.0-52.0) L Mean Corpuscular Volume 80 FL (80-99) Mean Corpuscular Hemoglobin 24.6 PG (27.0-31.0) L Mean Corpuscular Hemoglobin Concent 30.7 G/DL (32.0-36.0) L Red Cell Distribution Width 16.4 % (11.6-14.8) H Platelet Count 365 K/UL (150-450) Mean Platelet Volume 9.9 FL (6.5-10.1) Neutrophils (%) (Auto) 61.7 % (45.0-75.0) Lymphocytes (%) (Auto) 27.9 % (20.0-45.0) Monocytes (%) (Auto) 4.0 % (1.0-10.0) Eosinophils (%) (Auto) 4.9 % (0.0-3.0) H Basophils (%) (Auto) 1.6 % (0.0-2.0) Sodium Level 137 MMOL/L (136-145) Potassium Level 4.2 MMOL/L (3.5-5.1) Chloride Level 101 MMOL/L (98-107) Carbon Dioxide Level 34 MMOL/L (21-32) H Anion Gap 2 mmol/L (5-15) L Blood Urea Nitrogen 21 mg/dL (7-18) H Creatinine 0.8 MG/DL (0.55-1.30) Estimat Glomerular Filtration Rate > 60 mL/min (>60) Glucose Level 108 MG/DL (74-106) H Lactic Acid Level 1.80 mmol/L (0.4-2.0) Calcium Level 9.3 MG/DL (8.5-10.1) Total Bilirubin 0.3 MG/DL (0.2-1.0) Aspartate Amino Transf (AST/SGOT) 28 U/L (15-37) Alanine Aminotransferase (ALT/SGPT) 26 U/L (12-78) Alkaline Phosphatase 114 U/L (46-116) Total Creatine Kinase 77 U/L (26-308) Creatine Kinase MB 2.3 NG/ML (0.0-3.6) Creatine Kinase MB Relative Index 2.9 Troponin I 0.000 ng/mL (0.000-0.056) Total Protein 9.0 G/DL (6.4-8.2) H Albumin 3.3 G/DL (3.4-5.0) L Globulin 5.7 g/dL Albumin/Globulin Ratio 0.6 (1.0-2.7) L Urine Color Yellow Urine Appearance Turbid Urine pH 8 (4.5-8.0) Urine Specific [place] 1.015 (1.005-1.035) Urine Protein 2+ (NEGATIVE) H Urine Glucose (UA) Negative (NEGATIVE) Urine Ketones Negative (NEGATIVE) Urine Blood Negative (NEGATIVE) Urine Nitrite Negative (NEGATIVE) Urine Bilirubin Negative (NEGATIVE) Urine Urobilinogen Normal MG/DL (0.0-1.0) Urine Leukocyte Esterase 2+ (NEGATIVE) H Urine RBC 0-2 /HPF (0 - 0) H Urine WBC 2-4 /HPF (0 - 0) Urine Squamous Epithelial Cells Occasional /LPF Urine Triple Phosphate Crystals Moderate /LPF (NONE) H Urine Amorphous Sediment Many /LPF (NONE) H Urine Bacteria Few /HPF (NONE) Microbiology Date/Time Source Procedure Growth Status 09/24/19 05:00 Nasopharynx SARS-CoV-2 RdRp Gene Assay - Final Complete 09/24/19 06:00 Rectum Received Height (Feet): 5 Height (Inches): 8.00 Weight (Pounds): 150 Medications Current Medications Medications (Trade) Dose Ordered Sig/Patience Route PRN Reason Start Time Stop Time Status Last Admin Dose Admin Acetaminophen (Tylenol) 650 mg Q4H PRN GT Mild Pain (Pain Scale 1-3) 09/24/19 11:30 10/24/19 11:29 Acetaminophen (Tylenol) 650 mg Q4H PRN GT Temp >100.5 09/24/19 11:30 10/24/19 11:29 Acetaminophen/ Hydrocodone Bitart ([place] 5/325) 1 tab Q6H PRN GT Pain Scale 4-10 09/24/19 11:30 10/01/19 11:29 Albuterol/ Ipratropium (Albuterol/ Ipratropium) 3 ml Q6HRT INH 09/24/19 13:00 09/29/19 12:59 UNV Ascorbic Acid (Vitamin C) 500 mg DAILY GT 09/25/19 09:00 10/25/19 08:59 Aspirin (ASA) 81 mg DAILY GT 09/25/19 09:00 11/09/19 08:59 Bisacodyl (Dulcolax) 10 mg DAILYPRN PRN RECTAL Constipation 09/24/19 11:30 12/23/19 11:29 UNV Clonidine HCl (Catapres Tab) 0.1 mg Q6H PRN GT hypertension 09/24/19 11:30 12/23/19 11:29 Dextrose (Dextrose 50%) 25 ml Q30M PRN IV Hypoglycemia 09/24/19 11:30 12/23/19 11:29 Dextrose (Dextrose 50%) 50 ml Q30M PRN IV Hypoglycemia 09/24/19 11:30 12/23/19 11:29 Docusate Sodium (Colace) 100 mg DAILY GT 09/25/19 09:00 10/25/19 08:59 Enoxaparin Sodium (Lovenox) 40 mg DAILY SUBQ 09/25/19 09:00 12/24/19 08:59 Insulin Aspart (NovoLOG) BEFORE MEALS AND HS SUBQ 09/24/19 16:30 12/23/19 16:29 Insulin Detemir (Levemir) 10 units BEDTIME SUBQ 09/24/19 21:00 12/23/19 20:59 Magnesium Hydroxide (Mom) 30 ml DAILYPRN PRN GT Constipation 09/24/19 11:30 10/24/19 11:29 Midodrine (Pro-Amatine) 10 mg THREE TIMES A DAY GT 09/24/19 13:00 12/23/19 12:59 Multivitamins (Multivitamins W/ Minerals 15ml Liquid) 15 ml DAILY GT 09/25/19 09:00 10/25/19 08:59 Pantoprazole (Protonix) 40 mg DAILY IVP 09/25/19 09:00 10/25/19 08:59 Sennosides (Senokot) 17.2 mg QHS GT 09/24/19 21:00 10/24/19 20:59 Sodium Phosphate (Fleet's Sodium Phosl Enema) 133 ml DAILY PRN RECTAL Constipation 09/24/19 11:30 10/24/19 11:29 UNV Zinc Sulfate (Zinc Sulfate) 220 mg DAILY GT 09/25/19 09:00 12/24/19 08:59 Assessment/Plan Problem List: (1) Septic shock ICD Codes: A41.9 - Sepsis, unspecified organism; R65.21 - Severe sepsis with septic shock SNOMED: 17129823 (2) Dehydration ICD Codes: E86.0 - Dehydration SNOMED: 77377459 (3) Hypokalemia ICD Codes: E87.6 - Hypokalemia SNOMED: 82005658 (4) Hypocalcemia ICD Codes: E83.51 - Hypocalcemia SNOMED: 7962080 (5) Fever ICD Codes: R50.9 - Fever, unspecified SNOMED: 051496695 (6) Leukocytosis ICD Codes: D72.829 - Elevated white blood cell count, unspecified SNOMED: 105705757, 037096299 (7) Sepsis ICD Codes: A41.9 - Sepsis, unspecified organism SNOMED: 95194508 (8) Sacral decubitus ulcer Assessment & Plan: 64-year-old male well-known to me from prior care plans who presents with stage IV sacral decubitus ulcer that has been poor and slow healing. Periwound does identify some scarring and prior healed tissue. The wound is palpable down to the sacrum bone. No active infection identified. Dressings with mild heme saturation. No active drainage. No significant foul odor. Incontinence identified which does occasionally involve the wound bed. Cleanse Sacral wound with Saline. Loosely pack with Hydrogel impregnated Kerlix.Apply Moisture Barrier Paste periwound. Cover with Optifoam drsg. Change Daily and prn. Cleanse R and L Ischial wounds with Saline. Apply Therahoney. Apply Moisture Barrier Paste periwound.Cover with Optifoam drsg.Change Daily and prn. Apply Moisture Barrier Paste to denuded areas on buttocks with each Incontinence care. Apply Cavilon Skin Barrier to both heels. Cover each heel with Optifoam drsg. Change Daily and prn. APM/SELENA Mattress overlay. Reposition at least every 2hours or as tolerated. Off-load heels with pillow. ICD Codes: L89.159 - Pressure ulcer of sacral region, unspecified stage SNOMED: 624372887 Qualifiers: Qualified Codes: L89.159 - Pressure ulcer of sacral region, unspecified stage (9) Stage IV decubitus ulcer ICD Codes: L89.94 - Pressure ulcer of unspecified site, stage 4 SNOMED: 815702845 (10) Protein-calorie malnutrition, severe Assessment & Plan: alb 3.3 bmi 22.8 skin turgor poor wounds slow healing mvi vit c nutritional optimization ICD Codes: E43 - Unspecified severe protein-calorie malnutrition SNOMED: 453979870, 590111382, 842845964 (11) History of CVA (cerebrovascular accident) ICD Codes: Z86.73 - Personal history of transient ischemic attack (TIA), and cerebral infarction without residual deficits SNOMED: 619515742 (12) Acute kidney injury ICD Codes: N17.9 - Acute kidney failure, unspecified SNOMED: 80089303 (13) Acute encephalopathy ICD Codes: G93.40 - Encephalopathy, unspecified SNOMED: 82280199, 793501611 (14) Hyperosmolar non-ketotic state in patient with type 2 diabetes mellitus ICD Codes: E11.00 - Type 2 diabetes mellitus with hyperosmolarity without nonketotic hyperglycemic-hyperosmolar coma ([facility]) SNOMED: 14601012, 074797795 (15) Acute CVA (cerebrovascular accident) ICD Codes: I63.9 - Cerebral infarction, unspecified SNOMED: 067987465, 987652287 (16) Hyperosmolar hyperglycemic coma due to diabetes mellitus without ketoacidosis ICD Codes: E11.01 - Type 2 diabetes mellitus with hyperosmolarity with coma SNOMED: 77664455, 779603104 Tonio Raza Sep 24, 2019 12:32
[2019-09-24] MEDS ORDERED: Albuterol/Ipratropium 3ml neb INH SCH (13:00)
[2019-09-24] MEDS: Albuterol/Ipratropium 3ml neb INH PRN (13:25)
[2019-09-24] MEDS: Midodrine 10mg tab GT SCH ×2 (13:37→17:35)
--- NOTE | 2019-09-24 13:37 | NUR ---
NURSE NOTES:WOUND CARE NOTES:Pt presented on admission with multiple Pressure Injuries. Full thickness Sacral Pressure Injury with undermined Borders and tunneling (L)6cm x(W)5.5cm x (D)2.5cm, undermining clockwise 10-11 by 2.8cm @10o'clock,tunneling clockwise @5o'clock by 4.9cm. Base of wound is beefy red. Additional shearing and hyperpigmentation periwound. Hyperpigmentation R and L ischial tuberosities. Tear noted to urinary Meatus . Resolving Full thickness Pressure injury. Base of injury 80% pink epithelial 20% dry eschar. .Hyperpigmentation periwound.(L)4cm x (W) 4.5cm. R Heel is boggy but pink./L 1s3, 2nd and 4th nail matrix are necrotic but dry. R 1st and R4th nail matrix are necrotic but dry. Tx.Plan:Cleanse Sacral wound with Saline. Loosely Pack wound with Hydrogel impregnated Kerlix. Apply Moisture Barrier Paste Periwound. Cover with Optifoam drsg. Change Daily and prn. Apply Betadine to L heel. Cover with Optifoam drsg. Change every3 days and prn. Apply Betadine to R 1st and 2nd metatarsals Daily. Leave Open to air. Apply Betadine to L 1st,2nd and 4th metatarsals.Leave open to air. Apply Cavilon Skin Barrier to R heel and Malleoli. Cover with Optifoam drsg. Change every 7 days and prn. Reposition at least every 2hours or as tolerated. Place Pillow between knees. Off-load heels with pillow. APM/SELENA Mattress overlay.
--- NOTE | 2019-09-24 14:46 | Pulmonology Progress Note ---
Subjective ROS Limited/Unobtainable: Yes Allergies: Coded Allergies: No Known Allergies (Unverified , 09/29/17) Objective Last 24 Hour Vital Signs Date Time Temp Pulse Resp B/P (MAP) Pulse Ox O2 Delivery O2 Flow Rate FiO2 09/24/19 13:23 68 20 99 Room Air 21 66 20 96 09/24/19 12:00 96.8 57 16 113/69 (84) 93 09/24/19 11:54 Room Air 09/24/19 09:45 97.3 75 16 136/74 99 Room Air 99 09/24/19 09:16 97.3 75 16 136/74 99 Room Air 09/24/19 07:10 97.3 78 17 134/76 98 Room Air 09/24/19 05:08 97.2 76 16 123/73 99 Room Air 09/24/19 05:08 76 16 Room Air 99 09/24/19 04:37 96.8 80 16 124/76 (92) 96 Room Air Microbiology Date/Time Source Procedure Growth Status 09/24/19 05:00 Nasopharynx SARS-CoV-2 RdRp Gene Assay - Final Complete 09/24/19 06:00 Rectum Received Laboratory Tests 09/24/19 04:45: White Blood Count 8.7, Red Blood Count 4.96, Hemoglobin 12.2L, Hematocrit 39.7L , Mean Corpuscular Volume 80, Mean Corpuscular Hemoglobin 24.6L, Mean Corpuscular Hemoglobin Concent 30.7L, Red Cell Distribution Width 16.4H, Platelet Count 365, Mean Platelet Volume 9.9, Neutrophils (%) (Auto) 61.7, Lymphocytes (%) (Auto) 27.9, Monocytes (%) (Auto) 4.0, Eosinophils (%) (Auto) 4.9H, Basophils (%) (Auto) 1.6, Sodium Level 137, Potassium Level 4.2, Chloride Level 101, Carbon Dioxide Level 34H, Anion Gap 2L, Blood Urea Nitrogen 21H, Creatinine 0.8, Estimat Glomerular Filtration Rate > 60, Glucose Level 108H, Lactic Acid Level 1.80, Calcium Level 9.3, Total Bilirubin 0.3, Aspartate Amino Transf (AST/SGOT) 28, Alanine Aminotransferase (ALT/SGPT) 26, Alkaline Phosphatase 114, Total Creatine Kinase 77, Creatine Kinase MB 2.3, Creatine Kinase MB Relative Index 2.9, Troponin I 0.000, Total Protein 9.0H, Albumin 3.3L , Globulin 5.7, Albumin/Globulin Ratio 0.6L 09/24/19 05:00: Urine Color Yellow, Urine Appearance Turbid, Urine pH 8, Urine Specific [place] 1.015, Urine Protein 2+H, Urine Glucose (UA) Negative, Urine Ketones Negative, Urine Blood Negative, Urine Nitrite Negative, Urine Bilirubin Negative, Urine Urobilinogen Normal, Urine Leukocyte Esterase 2+H, Urine RBC 0-2H, Urine WBC 2-4 , Urine Squamous Epithelial Cells Occasional, Urine Triple Phosphate Crystals ModerateH, Urine Amorphous Sediment ManyH, Urine Bacteria Few 09/24/19 12:50: POC Whole Blood Glucose 113H Current Medications Medications (Trade) Dose Ordered Sig/Patience Route PRN Reason Start Time Stop Time Status Last Admin Dose Admin Acetaminophen (Tylenol) 650 mg Q4H PRN GT Mild Pain (Pain Scale 1-3) 09/24/19 11:30 10/24/19 11:29 Acetaminophen (Tylenol) 650 mg Q4H PRN GT Temp >100.5 09/24/19 11:30 10/24/19 11:29 Acetaminophen/ Hydrocodone Bitart ([place] 5/325) 1 tab Q6H PRN GT Pain Scale 4-10 09/24/19 11:30 10/01/19 11:29 Albuterol/ Ipratropium (Albuterol/ Ipratropium) 3 ml Q6H PRN INH Shortness of Breath 09/24/19 13:15 09/29/19 13:14 09/24/19 13:25 Ascorbic Acid (Vitamin C) 500 mg DAILY GT 09/25/19 09:00 10/25/19 08:59 Aspirin (ASA) 81 mg DAILY GT 09/25/19 09:00 11/09/19 08:59 Bisacodyl (Dulcolax) 10 mg DAILYPRN PRN RECTAL Constipation 09/24/19 11:30 12/23/19 11:29 Clonidine HCl (Catapres Tab) 0.1 mg Q8H PRN GT hypertension 09/24/19 13:15 12/23/19 13:14 Dextrose (Dextrose 50%) 25 ml Q30M PRN IV Hypoglycemia 09/24/19 11:30 12/23/19 11:29 Dextrose (Dextrose 50%) 50 ml Q30M PRN IV Hypoglycemia 09/24/19 11:30 12/23/19 11:29 Docusate Sodium (Colace) 100 mg DAILY GT 09/25/19 09:00 10/25/19 08:59 Enoxaparin Sodium (Lovenox) 40 mg DAILY SUBQ 09/25/19 09:00 12/24/19 08:59 Insulin Aspart (NovoLOG) BEFORE MEALS AND HS SUBQ 09/24/19 16:30 12/23/19 16:29 Insulin Detemir (Levemir) 10 units BEDTIME SUBQ 09/24/19 21:00 12/23/19 20:59 Magnesium Hydroxide (Mom) 30 ml DAILYPRN PRN GT Constipation 09/24/19 11:30 10/24/19 11:29 Midodrine (Pro-Amatine) 10 mg THREE TIMES A DAY GT 09/24/19 13:00 12/23/19 12:59 09/24/19 13:37 Multivitamins (Multivitamins W/ Minerals 15ml Liquid) 15 ml DAILY GT 09/25/19 09:00 10/25/19 08:59 Pantoprazole (Protonix) 40 mg DAILY IVP 09/25/19 09:00 10/25/19 08:59 Sennosides (Senokot) 17.2 mg QHS GT 09/24/19 21:00 10/24/19 20:59 Sodium Phosphate (Fleet's Sodium Phosl Enema) 133 ml DAILYPRN PRN RECTAL Constipation 09/24/19 11:30 10/24/19 11:29 Zinc Sulfate (Zinc Sulfate) 220 mg DAILY GT 09/25/19 09:00 12/24/19 08:59 Assessment/Plan Assessment/Plan Pulmonary Consultation: HPI: The patient is a 64-year-old male from halfway, history unavailable as non verbal. Noted to have worsening of mental status, some shortness of breath and cough. Has a history of recurrent pneumonia, multiresistant organisms, chest x-ray negative for infiltrate, demonstrated some congestion in the lung. Previous Covid 19 infection. ALLERGIES: NKDA. FAMILY HISTORY: Noncontributory. PAST MEDICAL HISTORY: Recurrent Pneumonia CVA, paraplegia, diabetes, encephalopathy CURRENT HOSPITAL MEDICATIONS: Including, but not limited to aspirin, clonidine, sliding scale insulin. ROS: NA FH: NA SH: Lives in intermediate PHYSICAL EXAMINATION: VITAL SIGNS NOTED: Chronically ill appearing HEAD AND NECK: NCAT, moist mm CHEST: Diffuse bronchial breathing sounds. HEART: S1 and S2. Regular rate and rhythm. ABDOMEN: Soft. PEG tube is in place. NEUROLOGIC: The patient is aphasic, however, is awake. MUSCULOSKELETAL: functional quadriparesis, non verbal, no seizures LABORATORY NOTED: ASSESSMENT: 1. General deconditioning. 2. History of CVA. 3. H/o dysphagia. 4. Debility, deconditioning, bedbound, quadriparesis. 5. Normocytic anemia. 6. Diabetes type 2. 7. GI and DVT prophylaxis. 8. Stage 4 Sacral decubitus PLAN OF CARE: Await recheck COVID test O2 PRN Pulmonary care LE dupples r/o DVT PPX - Lovenox Monitor labs AB per Infectious Disease Inocente Hernadez MD Sep 24, 2019 14:46
[2019-09-24 16:00] VITALS: BP 107/63
--- NOTE | 2019-09-24 16:14 | Diagnostic Imaging Report ---
EXAM: US Duplex Bilateral Upper Extremities Veins CLINICAL HISTORY: DVT TECHNIQUE: Real-time duplex ultrasound scan of the bilateral upper extremity veins integrating B-mode two-dimensional vascular structure, Doppler spectral analysis, color flow Doppler imaging and compression. COMPARISON: Venous lower extremity ultrasound on 04/16/2018 FINDINGS: Right deep veins: Unremarkable. No DVT in the right internal jugular, subclavian, axillary, or brachial veins. The veins demonstrate normal color flow, are normally compressible, with normal phasic flow and/or augmentation response. Right superficial veins: Unremarkable. No thrombus in the visualized right basilic and cephalic veins. Left deep veins: Unremarkable. No DVT in the left internal jugular, subclavian, axillary, or brachial veins. The veins demonstrate normal color flow, are normally compressible, with normal phasic flow and/or augmentation response. Left superficial veins: Unremarkable. No thrombus in the visualized left basilic and cephalic veins. Soft tissues: No acute findings. IMPRESSION: No deep venous thrombosis identified in either lower extremity.
[2019-09-24] MEDS ORDERED: NovoLOG Insulin Flexpen SUBQ SCH (16:30)
[2019-09-24] MEDS: NovoLOG Insulin Flexpen SUBQ SCH (18:43)
--- NOTE | 2019-09-24 19:40 | NUR ---
HAND-OFF: Report given to MARIA ELENA Smith.
--- NOTE | 2019-09-24 19:45 | NUR ---
NURSE NOTES: Pt is awake, alert non verbal, disoriented. no respiratory distress noted on room air. no facial grimacing during care. GT site intact, dressing intact. Sacral pressure injury st 4 with serosangenious drainage. bilateral heel redness. necrotic dry toes on bilateral feet. foot drop also present. Previous shift uploaded wound pictures, Bed is locked, in the lowest position, bed alarm on, HOB elevated at all times for aspiration precautions. Call light within reach. will continue to provide plan of care.
[2019-09-24 20:00] VITALS: BP 126/85
--- NOTE | 2019-09-24 20:32 | Infectious Diseases Prog Note ---
Subjective Allergies: Coded Allergies: No Known Allergies (Unverified , 09/29/17) # [id number] Objective Last 24 Hour Vital Signs Date Time Temp Pulse Resp B/P (MAP) Pulse Ox O2 Delivery O2 Flow Rate FiO2 09/24/19 16:00 97.2 54 18 107/63 (78) 98 09/24/19 13:23 68 20 99 Room Air 21 66 20 96 09/24/19 12:00 96.8 57 16 113/69 (84) 93 09/24/19 11:54 Room Air 09/24/19 09:45 97.3 75 16 136/74 99 Room Air 99 09/24/19 09:16 97.3 75 16 136/74 99 Room Air 09/24/19 07:10 97.3 78 17 134/76 98 Room Air 09/24/19 05:08 97.2 76 16 123/73 99 Room Air 09/24/19 05:08 76 16 Room Air 99 09/24/19 04:37 96.8 80 16 124/76 (92) 96 Room Air Height (Feet): 5 Height (Inches): 8.00 Weight (Pounds): 150 Microbiology Date/Time Source Procedure Growth Status 09/24/19 05:00 Nasopharynx SARS-CoV-2 RdRp Gene Assay - Final Complete 09/24/19 06:00 Rectum Received Laboratory Tests Test 09/24/19 04:45 09/24/19 05:00 09/24/19 12:50 09/24/19 17:32 White Blood Count 8.7 K/UL (4.8-10.8) Red Blood Count 4.96 M/UL (4.70-6.10) Hemoglobin 12.2 G/DL (14.2-18.0) L Hematocrit 39.7 % (42.0-52.0) L Mean Corpuscular Volume 80 FL (80-99) Mean Corpuscular Hemoglobin 24.6 PG (27.0-31.0) L Mean Corpuscular Hemoglobin Concent 30.7 G/DL (32.0-36.0) L Red Cell Distribution Width 16.4 % (11.6-14.8) H Platelet Count 365 K/UL (150-450) Mean Platelet Volume 9.9 FL (6.5-10.1) Neutrophils (%) (Auto) 61.7 % (45.0-75.0) Lymphocytes (%) (Auto) 27.9 % (20.0-45.0) Monocytes (%) (Auto) 4.0 % (1.0-10.0) Eosinophils (%) (Auto) 4.9 % (0.0-3.0) H Basophils (%) (Auto) 1.6 % (0.0-2.0) Sodium Level 137 MMOL/L (136-145) Potassium Level 4.2 MMOL/L (3.5-5.1) Chloride Level 101 MMOL/L (98-107) Carbon Dioxide Level 34 MMOL/L (21-32) H Anion Gap 2 mmol/L (5-15) L Blood Urea Nitrogen 21 mg/dL (7-18) H Creatinine 0.8 MG/DL (0.55-1.30) Estimat Glomerular Filtration Rate > 60 mL/min (>60) Glucose Level 108 MG/DL (74-106) H Lactic Acid Level 1.80 mmol/L (0.4-2.0) Calcium Level 9.3 MG/DL (8.5-10.1) Total Bilirubin 0.3 MG/DL (0.2-1.0) Aspartate Amino Transf (AST/SGOT) 28 U/L (15-37) Alanine Aminotransferase (ALT/SGPT) 26 U/L (12-78) Alkaline Phosphatase 114 U/L (46-116) Total Creatine Kinase 77 U/L (26-308) Creatine Kinase MB 2.3 NG/ML (0.0-3.6) Creatine Kinase MB Relative Index 2.9 Troponin I 0.000 ng/mL (0.000-0.056) Total Protein 9.0 G/DL (6.4-8.2) H Albumin 3.3 G/DL (3.4-5.0) L Globulin 5.7 g/dL Albumin/Globulin Ratio 0.6 (1.0-2.7) L Urine Color Yellow Urine Appearance Turbid Urine pH 8 (4.5-8.0) Urine Specific [place] 1.015 (1.005-1.035) Urine Protein 2+ (NEGATIVE) H Urine Glucose (UA) Negative (NEGATIVE) Urine Ketones Negative (NEGATIVE) Urine Blood Negative (NEGATIVE) Urine Nitrite Negative (NEGATIVE) Urine Bilirubin Negative (NEGATIVE) Urine Urobilinogen Normal MG/DL (0.0-1.0) Urine Leukocyte Esterase 2+ (NEGATIVE) H Urine RBC 0-2 /HPF (0 - 0) H Urine WBC 2-4 /HPF (0 - 0) Urine Squamous Epithelial Cells Occasional /LPF Urine Triple Phosphate Crystals Moderate /LPF (NONE) H Urine Amorphous Sediment Many /LPF (NONE) H Urine Bacteria Few /HPF (NONE) POC Whole Blood Glucose 113 MG/DL (74-106) H 142 MG/DL (74-106) H Current Medications Medications (Trade) Dose Ordered Sig/Patience Route PRN Reason Start Time Stop Time Status Last Admin Dose Admin Acetaminophen (Tylenol) 650 mg Q4H PRN GT Mild Pain (Pain Scale 1-3) 09/24/19 11:30 10/24/19 11:29 Acetaminophen (Tylenol) 650 mg Q4H PRN GT Temp >100.5 09/24/19 11:30 10/24/19 11:29 Acetaminophen/ Hydrocodone Bitart ([place] 5/325) 1 tab Q6H PRN GT Pain Scale 4-10 09/24/19 11:30 10/01/19 11:29 Albuterol/ Ipratropium (Albuterol/ Ipratropium) 3 ml Q6H PRN INH Shortness of Breath 09/24/19 13:15 09/29/19 13:14 09/24/19 13:25 Ascorbic Acid (Vitamin C) 500 mg DAILY GT 09/25/19 09:00 10/25/19 08:59 Aspirin (ASA) 81 mg DAILY GT 09/25/19 09:00 11/09/19 08:59 Bisacodyl (Dulcolax) 10 mg DAILYPRN PRN RECTAL Constipation 09/24/19 11:30 12/23/19 11:29 Clonidine HCl (Catapres Tab) 0.1 mg Q8H PRN GT hypertension 09/24/19 13:15 12/23/19 13:14 Dextrose (Dextrose 50%) 25 ml Q30M PRN IV Hypoglycemia 09/24/19 11:30 12/23/19 11:29 Dextrose (Dextrose 50%) 50 ml Q30M PRN IV Hypoglycemia 09/24/19 11:30 12/23/19 11:29 Docusate Sodium (Colace) 100 mg DAILY GT 09/25/19 09:00 10/25/19 08:59 Enoxaparin Sodium (Lovenox) 40 mg DAILY SUBQ 09/25/19 09:00 12/24/19 08:59 Insulin Aspart (NovoLOG) Q6HR SUBQ 09/24/19 18:00 12/23/19 16:29 09/24/19 18:43 Insulin Detemir (Levemir) 10 units BEDTIME SUBQ 09/24/19 21:00 12/23/19 20:59 Magnesium Hydroxide (Mom) 30 ml DAILYPRN PRN GT Constipation 09/24/19 11:30 10/24/19 11:29 Midodrine (Pro-Amatine) 10 mg THREE TIMES A DAY GT 09/24/19 13:00 12/23/19 12:59 09/24/19 17:35 Multivitamins (Multivitamins W/ Minerals 15ml Liquid) 15 ml DAILY GT 09/25/19 09:00 10/25/19 08:59 Pantoprazole (Protonix) 40 mg DAILY IVP 09/25/19 09:00 10/25/19 08:59 Sennosides (Senokot) 17.2 mg QHS GT 09/24/19 21:00 10/24/19 20:59 Sodium Phosphate (Fleet's Sodium Phosl Enema) 133 ml DAILYPRN PRN RECTAL Constipation 09/24/19 11:30 10/24/19 11:29 Zinc Sulfate (Zinc Sulfate) 220 mg DAILY GT 09/25/19 09:00 12/24/19 08:59 Denton Tinoco MD Sep 24, 2019 20:32
--- NOTE | 2019-09-24 20:54 | Cardiology Progress Note ---
Assessment/Plan Assessment/Plan The patient is seen and examined, full consult note is dictated. Objective Last 24 Hour Vital Signs Date Time Temp Pulse Resp B/P (MAP) Pulse Ox O2 Delivery O2 Flow Rate FiO2 09/24/19 16:00 97.2 54 18 107/63 (78) 98 09/24/19 13:23 68 20 99 Room Air 21 66 20 96 09/24/19 12:00 96.8 57 16 113/69 (84) 93 09/24/19 11:54 Room Air 09/24/19 09:45 97.3 75 16 136/74 99 Room Air 99 09/24/19 09:16 97.3 75 16 136/74 99 Room Air 09/24/19 07:10 97.3 78 17 134/76 98 Room Air 09/24/19 05:08 97.2 76 16 123/73 99 Room Air 09/24/19 05:08 76 16 Room Air 99 09/24/19 04:37 96.8 80 16 124/76 (92) 96 Room Air Laboratory Tests Test 09/24/19 04:45 09/24/19 05:00 09/24/19 12:50 09/24/19 17:32 White Blood Count 8.7 K/UL (4.8-10.8) Red Blood Count 4.96 M/UL (4.70-6.10) Hemoglobin 12.2 G/DL (14.2-18.0) L Hematocrit 39.7 % (42.0-52.0) L Mean Corpuscular Volume 80 FL (80-99) Mean Corpuscular Hemoglobin 24.6 PG (27.0-31.0) L Mean Corpuscular Hemoglobin Concent 30.7 G/DL (32.0-36.0) L Red Cell Distribution Width 16.4 % (11.6-14.8) H Platelet Count 365 K/UL (150-450) Mean Platelet Volume 9.9 FL (6.5-10.1) Neutrophils (%) (Auto) 61.7 % (45.0-75.0) Lymphocytes (%) (Auto) 27.9 % (20.0-45.0) Monocytes (%) (Auto) 4.0 % (1.0-10.0) Eosinophils (%) (Auto) 4.9 % (0.0-3.0) H Basophils (%) (Auto) 1.6 % (0.0-2.0) Sodium Level 137 MMOL/L (136-145) Potassium Level 4.2 MMOL/L (3.5-5.1) Chloride Level 101 MMOL/L (98-107) Carbon Dioxide Level 34 MMOL/L (21-32) H Anion Gap 2 mmol/L (5-15) L Blood Urea Nitrogen 21 mg/dL (7-18) H Creatinine 0.8 MG/DL (0.55-1.30) Estimat Glomerular Filtration Rate > 60 mL/min (>60) Glucose Level 108 MG/DL (74-106) H Lactic Acid Level 1.80 mmol/L (0.4-2.0) Calcium Level 9.3 MG/DL (8.5-10.1) Total Bilirubin 0.3 MG/DL (0.2-1.0) Aspartate Amino Transf (AST/SGOT) 28 U/L (15-37) Alanine Aminotransferase (ALT/SGPT) 26 U/L (12-78) Alkaline Phosphatase 114 U/L (46-116) Total Creatine Kinase 77 U/L (26-308) Creatine Kinase MB 2.3 NG/ML (0.0-3.6) Creatine Kinase MB Relative Index 2.9 Troponin I 0.000 ng/mL (0.000-0.056) Total Protein 9.0 G/DL (6.4-8.2) H Albumin 3.3 G/DL (3.4-5.0) L Globulin 5.7 g/dL Albumin/Globulin Ratio 0.6 (1.0-2.7) L Urine Color Yellow Urine Appearance Turbid Urine pH 8 (4.5-8.0) Urine Specific [place] 1.015 (1.005-1.035) Urine Protein 2+ (NEGATIVE) H Urine Glucose (UA) Negative (NEGATIVE) Urine Ketones Negative (NEGATIVE) Urine Blood Negative (NEGATIVE) Urine Nitrite Negative (NEGATIVE) Urine Bilirubin Negative (NEGATIVE) Urine Urobilinogen Normal MG/DL (0.0-1.0) Urine Leukocyte Esterase 2+ (NEGATIVE) H Urine RBC 0-2 /HPF (0 - 0) H Urine WBC 2-4 /HPF (0 - 0) Urine Squamous Epithelial Cells Occasional /LPF Urine Triple Phosphate Crystals Moderate /LPF (NONE) H Urine Amorphous Sediment Many /LPF (NONE) H Urine Bacteria Few /HPF (NONE) POC Whole Blood Glucose 113 MG/DL (74-106) H 142 MG/DL (74-106) H Microbiology Date/Time Source Procedure Growth Status 09/24/19 05:00 Nasopharynx SARS-CoV-2 RdRp Gene Assay - Final Complete 09/24/19 06:00 Rectum Received Rickey Abraham MD Sep 24, 2019 20:54
[2019-09-24] MEDS: Levemir Flexpen SUBQ SCH (21:00)
--- NOTE | 2019-09-24 23:15 | Consultation ---
DATE OF CONSULTATION: 09/24/2019 INFECTIOUS DISEASE CONSULT CONSULTING PHYSICIAN: Denton Tinoco M.D. REFERRING PHYSICIAN: Geo Whitten M.D. REASON FOR CONSULTATION: The patient for possible sepsis, antibiotic management and probable pneumonia. HISTORY OF PRESENT ILLNESS: The patient is a 64-year-old male with multiple medical problems, poor historian, who was brought to this medical center due to the worsening of mental status and shortness of breath. Infectious Disease consultation has been requested for evaluation of the patient for possible sepsis. ALLERGIES: No known drug allergies. SOCIAL HISTORY: The patient lives in [facility]. FAMILY HISTORY: Not available. MEDICATIONS: Currently off of antibiotics. PAST MEDICAL HISTORY: 1. History of COVID-19 Jul 2019. 2. History of COPD. 3. Diabetes. 4. History of stage IV sacral decubitus. 5. History of peripheral neuropathy. 6. History of CVA. 7. Anemia. 8. History of hyperglycemia. 9. History of CHF. 10. History of achalasia. 11. History of DVT and pulmonary emboli. 12. History of dysphagia. 13. Hyperlipidemia. 14. History of hypertension. 15. History of GERD. PHYSICAL EXAMINATION: VITAL SIGNS: Temperature 97.2, pulse 86, respiratory rate 18, blood pressure 107/63. HEENT: Mild pale conjunctivae. No icterus. NECK: No lymphadenopathy. CHEST: Clear. HEART: S1 and S2. ABDOMEN: Soft, nontender. EXTREMITIES: No cyanosis. NEUROLOGIC: Nonverbal, awake. SKIN: Stage IV decubitus in sacral area, not grossly infected. No purulent discharge. LABORATORY AND DIAGNOSTIC DATA: White blood cells 8.7, hemoglobin 12, and platelets 365. BUN 31, creatinine 0.8. ALT, AST, and alkaline phosphatase unremarkable. COVID rapid test x1 negative. Venous Doppler, no evidence of DVT. Chest x-ray, negative pulmonary venous congestion. ASSESSMENT: The patient is a 64-year-old male with worsening mental status. 1. Rule out probable sepsis. 2. Rule out UTI. 3. Rule out probable pneumonia. 4. Rule out recurrent COVID, however, this is less likely (in view of history of COVID 2 months ago). PLAN: 1. We will start the patient on IV Rocephin empirically pending cultures. 2. Monitor CBC. No BMP. 3. Monitor cultures (blood, urine). 4. Repeat rapid COVID test 24 hours after the first one. 5. We will keep the patient in isolation for COVID for now. 6. Monitor CBC and chest x-ray. 7. Based on the patient's clinical course and laboratories, we will do further recommendations. Thank you for this consultation. I will follow the patient with you during this hospitalization. Denton Tinoco M.D. DR: JIMENA JOB#: [id number] CC:
[2019-09-25] VITALS: BP 123/70
[2019-09-25] MEDS: cefTRIAXone 2 GM in D5W 55 ML IVPB SCH ×2 (01:13→21:10)
[2019-09-25] MEDS: Sennosides 8.6mg tab GT SCH ×2 (01:13→20:49)
[2019-09-25] MEDS: NovoLOG Insulin Flexpen SUBQ SCH ×4 (01:15→17:51)
[2019-09-25 04:00] VITALS: BP 128/61
[2019-09-25 06:46] LABS: BASOPHILS % (AUTO) 1.1 % (0.0-2.0); EOSINOPHILS % (AUTO) 2.8 % (0.0-3.0); HEMATOCRIT 36.1 % (42.0-52.0); HEMOGLOBIN 10.9 G/DL (14.2-18.0); LYMPHOCYTES % (AUTO) 16.4 % (20.0-45.0); MEAN CORPUSCULAR VOLUME 81 FL (80-99); MONOCYTES % (AUTO) 4.3 % (1.0-10.0); NEUTROPHILS % (AUTO) 75.5 % (45.0-75.0); PLATELET COUNT 331 K/UL (150-450); RED BLOOD COUNT 4.46 M/UL (4.70-6.10); RED CELL DISTRIBUTION WIDTH 16.6 % (11.6-14.8); WHITE BLOOD COUNT 11.8 K/UL (4.8-10.8)
[2019-09-25 07:05] LABS: ALANINE AMINOTRANSFERASE 23 U/L (12-78); ALBUMIN 2.8 G/DL (3.4-5.0); ALBUMIN/GLOBULIN RATIO 0.5 (1.0-2.7); ALKALINE PHOSPHATASE 100 U/L (46-116); ANION GAP 3 mmol/L (5-15); ASPARTATE AMINO TRANSFERASE 24 U/L (15-37); BILIRUBIN,TOTAL 0.2 MG/DL (0.2-1.0); BLOOD UREA NITROGEN 19 mg/dL (7-18); CALCIUM 9.2 MG/DL (8.5-10.1); CARBON DIOXIDE 34 MMOL/L (21-32); CHLORIDE 105 MMOL/L (98-107); CREATININE 0.8 MG/DL (0.55-1.30); POTASSIUM 3.8 MMOL/L (3.5-5.1); SODIUM 142 MMOL/L (136-145)
[2019-09-25 08:00] VITALS: BP 111/60
--- NOTE | 2019-09-25 08:00 | NUR ---
NURSE NOTES: Received patient in bed, bedridden, no sign of distress noted. Patient has RFA IV access, saline locked, and a GT on upper abdomen, receives Glucerna 1.5 @ 60cc/hr. Flush order Q2hr 100cc. Naik catheter in place, inserted prior to admission. Bed locked at the lowest position possible, call light within easy reach, siderails up x3. Will continue to monitor patient and follow up with the plan of care.
--- NOTE | 2019-09-25 08:01 | NUR ---
HAND-OFF: Report given to MARIA ELENA Simpson.
[2019-09-25] MEDS ORDERED: Ascorbic Acid 500mg tab ORAL SCH (09:00)
--- NOTE | 2019-09-25 09:28 | General Progress Note ---
Assessment/Plan Assessment/Plan: S: not verbal O: seems comfortable, PHYSICAL EXAMINATION:HEAD AND NECK: Atraumatic and normocephalic. CHEST: Diffuse bronchial breathing sounds.HEART: S1 and S2. Regular rate and rhythm. ABDOMEN: Soft. PEG tube is in place.NEUROLOGIC: The patient is aphasic, however, is awake. MUSCULOSKELETAL:quadriparesis and paraplegic. LABORATORY DATA: Dated September 24 ASSESSMENT: 1. General deconditioning. 2. New Leukocytosis 3. History of CVA. 3. Dysphagia. 4. Debility, deconditioning, bedbound, quadriparesis. 5. Normocytic anemia. 6. Diabetes type 2. 7. GI and DVT prophylaxis. Plan: will monitor sig/sym of active infection off abx Subjective Allergies: Coded Allergies: No Known Allergies (Unverified , 09/29/17) Objective Last 24 Hour Vital Signs Date Time Temp Pulse Resp B/P (MAP) Pulse Ox O2 Delivery O2 Flow Rate FiO2 09/25/19 08:00 97.7 79 19 111/60 (77) 95 09/25/19 04:00 97.6 84 18 128/61 (83) 97 09/25/19 00:00 97.7 85 20 123/70 (87) 97 09/24/19 21:00 Room Air 09/24/19 20:00 98.7 87 20 126/85 (99) 97 09/24/19 16:00 97.2 54 18 107/63 (78) 98 09/24/19 13:23 68 20 99 Room Air 21 66 20 96 09/24/19 12:00 96.8 57 16 113/69 (84) 93 09/24/19 11:54 Room Air 09/24/19 09:45 97.3 75 16 136/74 99 Room Air 99 Intake and Output 09/24/19 09/25/19 19:00 07:00 Intake Total 820 ml Output Total 400 ml Balance 420 ml Intake Free Water 400 ml Tube Feeding 420 ml Output Urine Total 400 ml # Voids 2 # Bowel Movements 4 2 Laboratory Tests 09/24/19 12:50: POC Whole Blood Glucose 113H 09/24/19 17:32: POC Whole Blood Glucose 142H 09/24/19 21:15: Troponin I 0.000, Pro-B-Type Natriuretic Peptide 479H 09/25/19 01:11: POC Whole Blood Glucose 148H 09/25/19 05:40: White Blood Count 11.8H, Red Blood Count 4.46L, Hemoglobin 10.9L, Hematocrit 36.1L, Mean Corpuscular Volume 81, Mean Corpuscular Hemoglobin 24.5L, Mean Corpuscular Hemoglobin Concent 30.3L, Red Cell Distribution Width 16.6H, Platelet Count 331, Mean Platelet Volume 10.0, Neutrophils (%) (Auto) 75.5H, Lymphocytes (%) (Auto) 16.4L, Monocytes (%) (Auto) 4.3, Eosinophils (%) (Auto) 2.8, Basophils (%) (Auto) 1.1, Erythrocyte Sedimentation Rate 41H, Prothrombin Time 11.5, Prothromb Time International Ratio 1.0, Activated Partial Thromboplast Time 29, Sodium Level 142, Potassium Level 3.8, Chloride Level 105 , Carbon Dioxide Level 34H, Anion Gap 3L, Blood Urea Nitrogen 19H, Creatinine 0.8, Estimat Glomerular Filtration Rate > 60, Glucose Level 110H, Calcium Level 9.2, Total Bilirubin 0.2, Aspartate Amino Transf (AST/SGOT) 24, Alanine Aminotransferase (ALT/SGPT) 23, Alkaline Phosphatase 100, C-Reactive Protein, Quantitative 5.1H, Total Protein 8.1, Albumin 2.8L, Globulin 5.3, Albumin/ Globulin Ratio 0.5L 09/25/19 07:28: POC Whole Blood Glucose 139H Height (Feet): 5 Height (Inches): 8.00 Weight (Pounds): 150 Geo Whitten MD Sep 25, 2019 09:28
[2019-09-25] MEDS: Ascorbic Acid 500mg tab GT SCH (09:53)
[2019-09-25] MEDS: Docusate 100mg/10ml Liq GT SCH (09:53)
[2019-09-25] MEDS: Multivitamins W/Minerals 15 ML UDC GT SCH (09:53)
[2019-09-25] MEDS: Zinc Sulfate 220mg GT SCH (09:54)
[2019-09-25] MEDS: Aspirin Baby 81mg GT SCH (09:54)
[2019-09-25] MEDS: Pantoprazole Inj IVP SCH (09:55)
[2019-09-25] MEDS: Enoxaparin 40mg Inj SUBQ SCH (09:56)
[2019-09-25] MEDS: Midodrine 10mg tab GT SCH ×2 (09:57→12:50)
[2019-09-25 12:00] VITALS: BP 158/89
--- NOTE | 2019-09-25 12:19 | Surgery Progress Note ---
Surgery Progress Note Subjective Additional Comments no acute events labs noted comfortable dressings going well Objective Last 24 Hour Vital Signs Date Time Temp Pulse Resp B/P (MAP) Pulse Ox O2 Delivery O2 Flow Rate FiO2 09/25/19 12:00 96.8 80 16 158/89 (112) 94 09/25/19 09:00 Room Air 09/25/19 08:00 97.7 79 19 111/60 (77) 95 09/25/19 04:00 97.6 84 18 128/61 (83) 97 09/25/19 00:00 97.7 85 20 123/70 (87) 97 09/24/19 21:00 Room Air 09/24/19 20:00 98.7 87 20 126/85 (99) 97 09/24/19 16:00 97.2 54 18 107/63 (78) 98 09/24/19 13:23 68 20 99 Room Air 21 66 20 96 I&O Intake and Output 09/24/19 09/25/19 19:00 07:00 Intake Total 820 ml Output Total 400 ml Balance 420 ml Intake Free Water 400 ml Tube Feeding 420 ml Output Urine Total 400 ml # Voids 2 # Bowel Movements 4 2 Dressing: saturated Wound: other Cardiovascular: RSR Respiratory: decreased breath sounds Abdomen: soft, non-tender, present bowel sounds Extremities: no tenderness, no cyanosis Laboratory Tests Test 09/24/19 12:50 09/24/19 17:32 09/24/19 21:15 09/25/19 01:11 POC Whole Blood Glucose 113 MG/DL (74-106) H 142 MG/DL (74-106) H 148 MG/DL (74-106) H Troponin I 0.000 ng/mL (0.000-0.056) Pro-B-Type Natriuretic Peptide 479 pg/mL (0-125) H Test 09/25/19 05:40 09/25/19 07:28 White Blood Count 11.8 K/UL (4.8-10.8) H Red Blood Count 4.46 M/UL (4.70-6.10) L Hemoglobin 10.9 G/DL (14.2-18.0) L Hematocrit 36.1 % (42.0-52.0) L Mean Corpuscular Volume 81 FL (80-99) Mean Corpuscular Hemoglobin 24.5 PG (27.0-31.0) L Mean Corpuscular Hemoglobin Concent 30.3 G/DL (32.0-36.0) L Red Cell Distribution Width 16.6 % (11.6-14.8) H Platelet Count 331 K/UL (150-450) Mean Platelet Volume 10.0 FL (6.5-10.1) Neutrophils (%) (Auto) 75.5 % (45.0-75.0) H Lymphocytes (%) (Auto) 16.4 % (20.0-45.0) L Monocytes (%) (Auto) 4.3 % (1.0-10.0) Eosinophils (%) (Auto) 2.8 % (0.0-3.0) Basophils (%) (Auto) 1.1 % (0.0-2.0) Erythrocyte Sedimentation Rate 41 MM/HR (0-20) H Prothrombin Time 11.5 SEC (9.30-11.50) Prothromb Time International Ratio 1.0 (0.9-1.1) Activated Partial Thromboplast Time 29 SEC (23-33) Sodium Level 142 MMOL/L (136-145) Potassium Level 3.8 MMOL/L (3.5-5.1) Chloride Level 105 MMOL/L (98-107) Carbon Dioxide Level 34 MMOL/L (21-32) H Anion Gap 3 mmol/L (5-15) L Blood Urea Nitrogen 19 mg/dL (7-18) H Creatinine 0.8 MG/DL (0.55-1.30) Estimat Glomerular Filtration Rate > 60 mL/min (>60) Glucose Level 110 MG/DL (74-106) H Calcium Level 9.2 MG/DL (8.5-10.1) Total Bilirubin 0.2 MG/DL (0.2-1.0) Aspartate Amino Transf (AST/SGOT) 24 U/L (15-37) Alanine Aminotransferase (ALT/SGPT) 23 U/L (12-78) Alkaline Phosphatase 100 U/L (46-116) C-Reactive Protein, Quantitative 5.1 mg/dL (0.00-0.90) H Total Protein 8.1 G/DL (6.4-8.2) Albumin 2.8 G/DL (3.4-5.0) L Globulin 5.3 g/dL Albumin/Globulin Ratio 0.5 (1.0-2.7) L POC Whole Blood Glucose 139 MG/DL (74-106) H Plan Problems: (1) Septic shock (2) Dehydration (3) Hypokalemia (4) Hypocalcemia (5) Fever (6) Leukocytosis (7) Sepsis (8) Sacral decubitus ulcer Assessment & Plan: 64-year-old male well-known to me from prior care plans who presents with stage IV sacral decubitus ulcer that has been poor and slow healing. Periwound does identify some scarring and prior healed tissue. The wound is palpable down to the sacrum bone. No active infection identified. Dressings with mild heme saturation. No active drainage. No significant foul odor. Incontinence identified which does occasionally involve the wound bed. Borders and tunneling (L)6cm x(W)5.5cm x (D)2.5cm, undermining clockwise 10-11 by 2.8cm @10o'clock,tunneling clockwise @5o'clock by 4.9cm. Base of wound is beefy red. Additional shearing and hyperpigmentation periwound. Hyperpigmentation R and L ischial tuberosities. Tear noted to urinary Meatus . Resolving Full thickness Pressure injury. Base of injury 80% pink epithelial 20 % dry eschar. .Hyperpigmentation periwound.(L)4cm x (W) 4.5cm. R Heel is boggy but pink./L 1s3, 2nd and 4th nail matrix are necrotic but dry. R 1st and R4th nail matrix are necrotic but dry. Tx.Plan: Cleanse Sacral wound with Saline. Loosely Pack wound with Hydrogel impregnated Kerlix. Apply Moisture Barrier Paste Periwound. Cover with Optifoam drsg. Change Daily and prn. Apply Betadine to L heel. Cover with Optifoam drsg. Change every3 days and prn. Apply Betadine to R 1st and 2nd metatarsals Daily. Leave Open to air. Apply Betadine to L 1st,2nd and 4th metatarsals.Leave open to air. Apply Cavilon Skin Barrier to R heel and Malleoli. Cover with Optifoam drsg. Change every 7 days and prn. Reposition at least every 2hours or as tolerated. Place Pillow between knees. Off-load heels with pillow. APM/SELENA Mattress overlay. (9) Stage IV decubitus ulcer (10) Protein-calorie malnutrition, severe Assessment & Plan: alb 3.3 bmi 22.8 skin turgor poor wounds slow healing mvi vit c nutritional optimization (11) History of CVA (cerebrovascular accident) (12) Acute kidney injury (13) Acute encephalopathy (14) Hyperosmolar non-ketotic state in patient with type 2 diabetes mellitus (15) Acute CVA (cerebrovascular accident) (16) Hyperosmolar hyperglycemic coma due to diabetes mellitus without ketoacidosis Tonio Raza Sep 25, 2019 12:19
--- NOTE | 2019-09-25 13:00 | Pulmonology Progress Note ---
Subjective ROS Limited/Unobtainable: Yes Allergies: Coded Allergies: No Known Allergies (Unverified , 09/29/17) Objective Last 24 Hour Vital Signs Date Time Temp Pulse Resp B/P (MAP) Pulse Ox O2 Delivery O2 Flow Rate FiO2 09/25/19 12:00 96.8 80 16 158/89 (112) 94 09/25/19 09:00 Room Air 09/25/19 08:00 97.7 79 19 111/60 (77) 95 09/25/19 04:00 97.6 84 18 128/61 (83) 97 09/25/19 00:00 97.7 85 20 123/70 (87) 97 09/24/19 21:00 Room Air 09/24/19 20:00 98.7 87 20 126/85 (99) 97 09/24/19 16:00 97.2 54 18 107/63 (78) 98 09/24/19 13:23 68 20 99 Room Air 21 66 20 96 Intake and Output 09/24/19 09/25/19 19:00 07:00 Intake Total 820 ml Output Total 400 ml Balance 420 ml Intake Free Water 400 ml Tube Feeding 420 ml Output Urine Total 400 ml # Voids 2 # Bowel Movements 4 2 Microbiology Date/Time Source Procedure Growth Status 09/24/19 05:00 Blood Blood Culture - Preliminary NO GROWTH AFTER 24 HOURS Resulted 09/24/19 04:45 Blood Blood Culture - Preliminary NO GROWTH AFTER 24 HOURS Resulted 09/25/19 06:30 Nasopharynx SARS-CoV-2 RdRp Gene Assay - Final Complete 09/24/19 05:00 Nasopharynx SARS-CoV-2 RdRp Gene Assay - Final Complete 09/24/19 06:00 Rectum Received Laboratory Tests 09/24/19 17:32: POC Whole Blood Glucose 142H 09/24/19 21:15: Troponin I 0.000, Pro-B-Type Natriuretic Peptide 479H 09/25/19 01:11: POC Whole Blood Glucose 148H 09/25/19 05:40: White Blood Count 11.8H, Red Blood Count 4.46L, Hemoglobin 10.9L, Hematocrit 36.1L, Mean Corpuscular Volume 81, Mean Corpuscular Hemoglobin 24.5L, Mean Corpuscular Hemoglobin Concent 30.3L, Red Cell Distribution Width 16.6H, Platelet Count 331, Mean Platelet Volume 10.0, Neutrophils (%) (Auto) 75.5H, Lymphocytes (%) (Auto) 16.4L, Monocytes (%) (Auto) 4.3, Eosinophils (%) (Auto) 2.8, Basophils (%) (Auto) 1.1, Erythrocyte Sedimentation Rate 41H, Prothrombin Time 11.5, Prothromb Time International Ratio 1.0, Activated Partial Thromboplast Time 29, Sodium Level 142, Potassium Level 3.8, Chloride Level 105 , Carbon Dioxide Level 34H, Anion Gap 3L, Blood Urea Nitrogen 19H, Creatinine 0.8, Estimat Glomerular Filtration Rate > 60, Glucose Level 110H, Calcium Level 9.2, Total Bilirubin 0.2, Aspartate Amino Transf (AST/SGOT) 24, Alanine Aminotransferase (ALT/SGPT) 23, Alkaline Phosphatase 100, C-Reactive Protein, Quantitative 5.1H, Total Protein 8.1, Albumin 2.8L, Globulin 5.3, Albumin/ Globulin Ratio 0.5L 09/25/19 07:28: POC Whole Blood Glucose 139H Current Medications Medications (Trade) Dose Ordered Sig/Patience Route PRN Reason Start Time Stop Time Status Last Admin Dose Admin Acetaminophen (Tylenol) 650 mg Q4H PRN GT Mild Pain (Pain Scale 1-3) 09/24/19 11:30 10/24/19 11:29 Acetaminophen (Tylenol) 650 mg Q4H PRN GT Temp >100.5 09/24/19 11:30 10/24/19 11:29 Acetaminophen/ Hydrocodone Bitart ([place] 5/325) 1 tab Q6H PRN GT Pain Scale 4-10 09/24/19 11:30 10/01/19 11:29 Albuterol/ Ipratropium (Albuterol/ Ipratropium) 3 ml Q6H PRN INH Shortness of Breath 09/24/19 13:15 09/29/19 13:14 09/24/19 13:25 Ascorbic Acid (Vitamin C) 500 mg DAILY GT 09/25/19 09:00 10/25/19 08:59 09/25/19 09:53 Aspirin (ASA) 81 mg DAILY GT 09/25/19 09:00 11/09/19 08:59 09/25/19 09:54 Bisacodyl (Dulcolax) 10 mg DAILYPRN PRN RECTAL Constipation 09/24/19 11:30 12/23/19 11:29 Ceftriaxone Sodium 2 gm/ Dextrose 55 ml @ 110 mls/hr Q24H IVPB 09/24/19 22:00 10/01/19 21:59 09/25/19 01:13 Clonidine HCl (Catapres Tab) 0.1 mg Q8H PRN GT hypertension 09/24/19 13:15 12/23/19 13:14 Dextrose (Dextrose 50%) 25 ml Q30M PRN IV Hypoglycemia 09/24/19 11:30 12/23/19 11:29 Dextrose (Dextrose 50%) 50 ml Q30M PRN IV Hypoglycemia 09/24/19 11:30 12/23/19 11:29 Docusate Sodium (Colace) 100 mg DAILY GT 09/25/19 09:00 10/25/19 08:59 09/25/19 09:53 Enoxaparin Sodium (Lovenox) 40 mg DAILY SUBQ 09/25/19 09:00 12/24/19 08:59 09/25/19 09:56 Insulin Aspart (NovoLOG) Q6HR SUBQ 09/24/19 18:00 12/23/19 16:29 09/25/19 01:15 Insulin Detemir (Levemir) 10 units BEDTIME SUBQ 09/24/19 21:00 12/23/19 20:59 09/24/19 21:00 Magnesium Hydroxide (Mom) 30 ml DAILYPRN PRN GT Constipation 09/24/19 11:30 10/24/19 11:29 Midodrine (Pro-Amatine) 10 mg THREE TIMES A DAY GT 09/24/19 13:00 12/23/19 12:59 09/25/19 12:50 Multivitamins (Multivitamins W/ Minerals 15ml Liquid) 15 ml DAILY GT 09/25/19 09:00 10/25/19 08:59 09/25/19 09:53 Pantoprazole (Protonix) 40 mg DAILY IVP 09/25/19 09:00 10/25/19 08:59 09/25/19 09:55 Sennosides (Senokot) 17.2 mg QHS GT 09/24/19 21:00 10/24/19 20:59 7/26/20 01:13 Sodium Phosphate (Fleet's Sodium Phosl Enema) 133 ml DAILYPRN PRN RECTAL Constipation 09/24/19 11:30 10/24/19 11:29 Zinc Sulfate (Zinc Sulfate) 220 mg DAILY GT 09/25/19 09:00 12/24/19 08:59 09/25/19 09:54 Assessment/Plan Assessment/Plan Pulmonary Progress Note: HPI: The patient is a 64-year-old male from retirement, history unavailable as non verbal. Noted to have worsening of mental status, some shortness of breath and cough. Has a history of recurrent pneumonia, multiresistant organisms, chest x-ray negative for infiltrate, demonstrated some congestion in the lung. Previous Covid 19 infection. ALLERGIES: NKDA. FAMILY HISTORY: Noncontributory. PAST MEDICAL HISTORY: Recurrent Pneumonia CVA, paraplegia, diabetes, encephalopathy CURRENT HOSPITAL MEDICATIONS: Including, but not limited to aspirin, clonidine, sliding scale insulin. ROS: NA FH: NA SH: Lives in group home PHYSICAL EXAMINATION: VITAL SIGNS NOTED: Chronically ill appearing, non verbal HEAD AND NECK: NCAT, moist mm CHEST: Diffuse bronchial breathing sounds. HEART: S1 and S2. Regular rate and rhythm. ABDOMEN: Soft. PEG tube is in place. NEUROLOGIC: The patient is aphasic, however, is awake. MUSCULOSKELETAL: functional quadriparesis, non verbal, no seizures LABORATORY NOTED: ASSESSMENT: 1. General deconditioning. 2. History of CVA. 3. H/o dysphagia. 4. Debility, deconditioning, bedbound, quadriparesis. 5. Normocytic anemia. 6. Diabetes type 2. 7. GI and DVT prophylaxis. 8. Stage 4 Sacral decubitus 9. Covid 19 negative x 2 PLAN OF CARE: O2 PRN Pulmonary care LE [place] r/o DVT PPX - Lovenox Monitor labs AB per Infectious Disease nIocente Hernadez MD Sep 25, 2019 13:00
[2019-09-25 16:00] VITALS: BP 116/61
--- NOTE | 2019-09-25 16:00 | Consultation ---
DATE OF CONSULTATION: 09/24/2019 CARDIOLOGY CONSULTATION CONSULTING PHYSICIAN: Rickey Abraham MD. REFERRING PHYSICIAN: Geo Whitten MD. REASON FOR CONSULTATION: Management of shortness of breath. HISTORY OF PRESENT ILLNESS: Patient is a very unfortunate 64-year-old gentleman nonverbal due to prior history of stroke, dementia, left hemiparesis who is a resident of a nursing facility, brought in for complaints of cough and shortness of breath that happened just about a day prior to arrival to this hospital. Unfortunately, history could not be directly obtained from the patient given the nonverbal status. The patient apparently is a known COVID-19 positive individual, which was tested just about a month ago in the nursing facility. The patient apparently was also hypoxic. At the time of arrival to this facility, blood pressure was 124/76 mmHg and heart rate was 80. Laboratory finding in the emergency department revealed troponin I level of 0, BUN and creatinine of 21 and 28, and bicarbonate of 34. Chest x-ray in the emergency department also showed mild cardiomegaly with pulmonary venous congestion. Therefore, he was admitted in the Med/Surg unit for further evaluation and management of shortness of breath. A 12-lead electrocardiogram in the emergency department showed sinus rhythm at a rate of 65 with no acute ischemic changes. Cardiology consultation was made at request of Dr. Whitten to address shortness of breath from the cardiac standpoint. PAST MEDICAL HISTORY: CVA with left hemiparesis, history of congestive heart failure, history of TIA, history of hyperlipidemia, history of pneumonia with COVID-19 infection, history of hypertension, history of diabetes mellitus type 2, history of dysphagia status post G-tube placement, history of UTI, history of dementia, history of bladder dysfunction, history of autoimmune neuropathy. PAST SURGICAL HISTORY: G-tube placement. FAMILY HISTORY: No premature coronary artery disease in first-degree relatives. REVIEW OF SYSTEMS: A 12-system review could not be done given the patient's nonverbal status. SOCIAL HISTORY: There is no history of tobacco, alcohol, or illicit drug use. ALLERGIES: No known drug allergies. PHYSICAL EXAMINATION: VITAL SIGNS: Blood pressure is 124/76, pulse of 80, respirations 16, temperature 96.8 degrees Fahrenheit, O2 saturation 96% on room air. GENERAL: Patient is a very unfortunate 64-year-old gentleman, chronically ill appearing, in no apparent respiratory distress. HEENT: Atraumatic, and normocephalic. Anicteric. Pupils are equal, round, and reactive to light and accommodation. Extraocular muscles intact. NECK: JVP less than 5 cm. No carotid bruit. Carotid upstrokes 2+ bilaterally. CARDIOVASCULAR: Normal S1, S2. Regular rate and rhythm. No murmurs, gallops, or rubs. PMI is at fourth intercostal space in the midclavicular line. LUNGS: Bibasilar crackles. ABDOMEN: Soft, nontender, nondistended. Positive G-tube. MUSCULOSKELETAL: Contracted. Sacral ulcers and heel ulcers. LABORATORY FINDINGS: CBC - WBC is 8.7, hemoglobin 12.2, hematocrit of 39.7, platelet count 365. Chemistry - sodium 137, potassium 4.2, chloride 101, bicarb 34, BUN of 21, creatinine 0.8, glucose 108, calcium 9.3. Troponin I 0. INR is 1.0. ASSESSMENT AND PLAN: Patient is a very unfortunate 64-year-old gentleman seen in Cardiology consultation. 1. Dyspnea. Chest x-ray shows signs of congestive heart failure. We will obtain proBNP. The patient may benefit from low-dose diuretics. Another possibility for this condition would be a remnant of pneumonia from COVID-19 infection. The patient has been started on . 2. History of CVA with left hemiparesis. Patient will benefit from combination of aspirin and statin. 3. Dysphagia, status post PEG placement. 4. History of diabetes mellitus. 5. History of dementia. 6. History of neuropathy. I will obtain 2D echocardiography for assessment of his systolic and diastolic function to address hemodynamics in this patient. I would like to thank Dr. Whitten for the courtesy of this consultation. Rickey Abraham M.D. DR: RON JOB#: [id number] CC:
--- NOTE | 2019-09-25 17:34 | NUR ---
CASE MANAGEMENT:REVIEW 64 YR OLD MALE BIBA FROM [facility] PMH: COVID POSITIVE.....(NOW NEGATIVE) CC: COUGH AND CONGESTION SI:ACUTE ENCEPHALOPATHY. SACRAL DECUB 96.8 80 16 124/76 96% ON RA H/H-12.2/39.7 CO2+34 IS: 1L NS BOLUS 500CC NS BOLUS CHEST XRAY BLOOD CX COVID SWAB : TO MED/SURG 4 EAST IS:IV ROCEPHIN Q24
--- NOTE | 2019-09-25 19:35 | NUR ---
NURSE NOTES: received report from Tatiana ARREDONDO.
--- NOTE | 2019-09-25 19:40 | NUR ---
NURSE NOTES: Awake, alert and non verbal, in semi fowlers position. No sob noted. With GT patent and intact, no residual when checked. No facial grimacing noted. Not in any form of distress. Turned and repositioned for comfort and circulation. Wound dressing on sacral area done, kept clean and dry. BS checked. Will continue to monitor.
--- NOTE | 2019-09-25 19:45 | NUR ---
HAND-OFF: Report given to MARIA ELENA Cristobal.
[2019-09-25 20:00] VITALS: BP 140/63
[2019-09-25] MEDS: Levemir Flexpen SUBQ SCH (20:51)
--- NOTE | 2019-09-25 23:59 | Cardiology Progress Note ---
Assessment/Plan Assessment/Plan 1. Dyspnea. Chest x-ray shows signs of congestive heart failure, although pneumonitis of COVID-19 infection can cause it. ProBNP of 479 is also s/o CHF. The patient may benefit from low-dose diuretics. 2. History of CVA with left hemiparesis. Continue ASA and atorvastatin. 3. Dysphagia, status post PEG placement. 4. History of diabetes mellitus. 5. History of dementia. 6. History of neuropathy. Subjective Subjective No cardiac events reported. Objective Last 24 Hour Vital Signs Date Time Temp Pulse Resp B/P (MAP) Pulse Ox O2 Delivery O2 Flow Rate FiO2 09/25/19 20:00 98.0 59 18 140/63 (88) 94 09/25/19 16:00 97.7 69 19 116/61 (79) 93 09/25/19 12:00 96.8 80 16 158/89 (112) 94 09/25/19 09:00 Room Air 09/25/19 08:00 97.7 79 19 111/60 (77) 95 09/25/19 04:00 97.6 84 18 128/61 (83) 97 09/25/19 00:00 97.7 85 20 123/70 (87) 97 Intake and Output 09/24/19 09/25/19 19:00 07:00 Intake Total 820 ml Output Total 400 ml Balance 420 ml Intake Free Water 400 ml Tube Feeding 420 ml Output Urine Total 400 ml # Voids 2 # Bowel Movements 4 2 2D Echo: TDS, normal LV systolic function, Grade I LVDD. Laboratory Tests Test 09/25/19 01:11 09/25/19 05:40 09/25/19 07:28 POC Whole Blood Glucose 148 MG/DL (74-106) H 139 MG/DL (74-106) H White Blood Count 11.8 K/UL (4.8-10.8) H Red Blood Count 4.46 M/UL (4.70-6.10) L Hemoglobin 10.9 G/DL (14.2-18.0) L Hematocrit 36.1 % (42.0-52.0) L Mean Corpuscular Volume 81 FL (80-99) Mean Corpuscular Hemoglobin 24.5 PG (27.0-31.0) L Mean Corpuscular Hemoglobin Concent 30.3 G/DL (32.0-36.0) L Red Cell Distribution Width 16.6 % (11.6-14.8) H Platelet Count 331 K/UL (150-450) Mean Platelet Volume 10.0 FL (6.5-10.1) Neutrophils (%) (Auto) 75.5 % (45.0-75.0) H Lymphocytes (%) (Auto) 16.4 % (20.0-45.0) L Monocytes (%) (Auto) 4.3 % (1.0-10.0) Eosinophils (%) (Auto) 2.8 % (0.0-3.0) Basophils (%) (Auto) 1.1 % (0.0-2.0) Erythrocyte Sedimentation Rate 41 MM/HR (0-20) H Prothrombin Time 11.5 SEC (9.30-11.50) Prothromb Time International Ratio 1.0 (0.9-1.1) Activated Partial Thromboplast Time 29 SEC (23-33) Sodium Level 142 MMOL/L (136-145) Potassium Level 3.8 MMOL/L (3.5-5.1) Chloride Level 105 MMOL/L (98-107) Carbon Dioxide Level 34 MMOL/L (21-32) H Anion Gap 3 mmol/L (5-15) L Blood Urea Nitrogen 19 mg/dL (7-18) H Creatinine 0.8 MG/DL (0.55-1.30) Estimat Glomerular Filtration Rate > 60 mL/min (>60) Glucose Level 110 MG/DL (74-106) H Calcium Level 9.2 MG/DL (8.5-10.1) Total Bilirubin 0.2 MG/DL (0.2-1.0) Aspartate Amino Transf (AST/SGOT) 24 U/L (15-37) Alanine Aminotransferase (ALT/SGPT) 23 U/L (12-78) Alkaline Phosphatase 100 U/L (46-116) C-Reactive Protein, Quantitative 5.1 mg/dL (0.00-0.90) H Total Protein 8.1 G/DL (6.4-8.2) Albumin 2.8 G/DL (3.4-5.0) L Globulin 5.3 g/dL Albumin/Globulin Ratio 0.5 (1.0-2.7) L Microbiology Date/Time Source Procedure Growth Status 09/24/19 05:00 Blood Blood Culture - Preliminary NO GROWTH AFTER 24 HOURS Resulted 09/24/19 04:45 Blood Blood Culture - Preliminary NO GROWTH AFTER 24 HOURS Resulted 09/25/19 06:30 Nasopharynx SARS-CoV-2 RdRp Gene Assay - Final Complete 09/24/19 05:00 Nasopharynx SARS-CoV-2 RdRp Gene Assay - Final Complete 09/24/19 06:00 Rectum Received Objective HEENT: Atraumatic, and normocephalic. Anicteric. Pupils are equal, round, and reactive to light and accommodation. Extraocular muscles intact. NECK: JVP less than 5 cm. No carotid bruit. Carotid upstrokes 2+ bilaterally. CARDIOVASCULAR: Normal S1, S2. Regular rate and rhythm. No murmurs, gallops, or rubs. PMI is at fourth intercostal space in the midclavicular line. LUNGS: Bibasilar crackles. ABDOMEN: Soft, nontender, nondistended. Positive G-tube. MUSCULOSKELETAL: Contracted. Sacral ulcers and heel ulcers. Rickey Abraham MD Sep 25, 2019 23:59
[2019-09-26] VITALS: BP 108/55
[2019-09-26 04:00] VITALS: BP 120/69
[2019-09-26] MEDS: NovoLOG Insulin Flexpen SUBQ SCH ×5 (06:00→23:49)
--- NOTE | 2019-09-26 07:37 | NUR ---
NURSE NOTES: Received report from MARIA ELENA Prince. Pt received lying in hospital bed AAO x 1, nonverbal, primary language Macedonian. Pt is on RA in no apparent distress. TF with Glucerna 1.5 at 60 ml/hr. LBM on 09/25. Last AC 130 no coverage. Pt has ST 4 sacral wound with last dressing change done this am at 0400. Naik catheter [address] draining yellow urine. P IV on R FA saline lock with slight redness on site noted at this time. Pt has multiple toes with yellowish thickening of skin on toenails painted with betadine earlier. Bed in lowest position, bed alarm on, call light within reach. Will continue POC.
--- NOTE | 2019-09-26 07:37 | NUR ---
HAND-OFF: Report given to Tomeka ARREDONDO.
[2019-09-26 08:00] VITALS: BP 107/65
[2019-09-26 08:08] LABS: BASOPHILS % (AUTO) 1.9 % (0.0-2.0); EOSINOPHILS % (AUTO) 3.9 % (0.0-3.0); HEMATOCRIT 32.7 % (42.0-52.0); HEMOGLOBIN 10.1 G/DL (14.2-18.0); MEAN CORPUSCULAR VOLUME 80 FL (80-99); MONOCYTES % (AUTO) 4.7 % (1.0-10.0); NEUTROPHILS % (AUTO) 72.5 % (45.0-75.0); PLATELET COUNT 306 K/UL (150-450); RED BLOOD COUNT 4.08 M/UL (4.70-6.10); RED CELL DISTRIBUTION WIDTH 16.4 % (11.6-14.8)
[2019-09-26 08:31] LABS: ALANINE AMINOTRANSFERASE 32 U/L (12-78); ALBUMIN 2.5 G/DL (3.4-5.0); ALBUMIN/GLOBULIN RATIO 0.5 (1.0-2.7); ALKALINE PHOSPHATASE 90 U/L (46-116); ANION GAP 5 mmol/L (5-15); ASPARTATE AMINO TRANSFERASE 26 U/L (15-37); BILIRUBIN,TOTAL 0.2 MG/DL (0.2-1.0); BLOOD UREA NITROGEN 22 mg/dL (7-18); CALCIUM 8.5 MG/DL (8.5-10.1); CARBON DIOXIDE 31 MMOL/L (21-32); CHLORIDE 105 MMOL/L (98-107); CREATININE 0.6 MG/DL (0.55-1.30); POTASSIUM 3.7 MMOL/L (3.5-5.1); SODIUM 141 MMOL/L (136-145)
--- NOTE | 2019-09-26 08:40 | Pulmonology Progress Note ---
Subjective ROS Limited/Unobtainable: Yes Interval Events: None new Constitutional: Reports: no symptoms HEENT: Repors: no symptoms Respiratory: Reports: no symptoms Cardiovascular: Reports: no symptoms Allergies: Coded Allergies: No Known Allergies (Unverified , 09/29/17) Objective Last 24 Hour Vital Signs Date Time Temp Pulse Resp B/P (MAP) Pulse Ox O2 Delivery O2 Flow Rate FiO2 09/26/19 04:00 98.4 89 18 120/69 (86) 94 09/26/19 00:00 98.5 68 20 108/55 (72) 95 09/25/19 21:00 Room Air 09/25/19 20:00 98.0 59 18 140/63 (88) 94 09/25/19 16:00 97.7 69 19 116/61 (79) 93 09/25/19 12:00 96.8 80 16 158/89 (112) 94 09/25/19 09:00 Room Air Intake and Output 09/25/19 09/26/19 19:00 07:00 Output Total 500 ml 500 ml Balance -500 ml -500 ml Output Urine Total 500 ml 500 ml # Voids 1 # Bowel Movements 1 1 General Appearance: no acute distress HEENT: normocephalic Respiratory: chest wall non-tender Cardiovascular: normal peripheral pulses Abdomen: normal bowel sounds Microbiology Date/Time Source Procedure Growth Status 09/24/19 05:00 Blood Blood Culture - Preliminary NO GROWTH AFTER 48 HOURS Resulted 09/24/19 04:45 Blood Blood Culture - Preliminary NO GROWTH AFTER 48 HOURS Resulted 09/25/19 06:30 Nasopharynx SARS-CoV-2 RdRp Gene Assay - Final Complete 09/24/19 05:00 Nasopharynx SARS-CoV-2 RdRp Gene Assay - Final Complete 09/25/19 06:30 Urine,Clean Catch Urine Culture - Preliminary Gram Negative Bacillus 1 Resulted 09/24/19 06:00 Rectum Received Laboratory Tests 09/26/19 07:15: White Blood Count 9.0, Red Blood Count 4.08L, Hemoglobin 10.1L, Hematocrit 32.7L , Mean Corpuscular Volume 80, Mean Corpuscular Hemoglobin 24.7L, Mean Corpuscular Hemoglobin Concent 30.7L, Red Cell Distribution Width 16.4H, Platelet Count 306, Mean Platelet Volume 9.5, Neutrophils (%) (Auto) 72.5, Lymphocytes (%) (Auto) 17.0L, Monocytes (%) (Auto) 4.7, Eosinophils (%) (Auto) 3.9H, Basophils (%) (Auto) 1.9, Sodium Level 141, Potassium Level 3.7, Chloride Level 105, Carbon Dioxide Level 31, Anion Gap 5, Blood Urea Nitrogen 22H, Creatinine 0.6, Estimat Glomerular Filtration Rate > 60, Glucose Level 128H, Calcium Level 8.5, Total Bilirubin 0.2, Aspartate Amino Transf (AST/SGOT) 26, Alanine Aminotransferase (ALT/SGPT) 32, Alkaline Phosphatase 90, Total Protein 7.3, Albumin 2.5L, Globulin 4.8, Albumin/Globulin Ratio 0.5L Current Medications Medications (Trade) Dose Ordered Sig/Patience Route PRN Reason Start Time Stop Time Status Last Admin Dose Admin Acetaminophen (Tylenol) 650 mg Q4H PRN GT Mild Pain (Pain Scale 1-3) 09/24/19 11:30 10/24/19 11:29 Acetaminophen (Tylenol) 650 mg Q4H PRN GT Temp >100.5 09/24/19 11:30 10/24/19 11:29 Acetaminophen/ Hydrocodone Bitart ([place] 5/325) 1 tab Q6H PRN GT Pain Scale 4-10 09/24/19 11:30 10/01/19 11:29 Albuterol/ Ipratropium (Albuterol/ Ipratropium) 3 ml Q6H PRN INH Shortness of Breath 09/24/19 13:15 09/29/19 13:14 09/24/19 13:25 Ascorbic Acid (Vitamin C) 500 mg DAILY GT 09/25/19 09:00 10/25/19 08:59 09/25/19 09:53 Aspirin (ASA) 81 mg DAILY GT 09/25/19 09:00 11/09/19 08:59 09/25/19 09:54 Bisacodyl (Dulcolax) 10 mg DAILYPRN PRN RECTAL Constipation 09/24/19 11:30 12/23/19 11:29 Ceftriaxone Sodium 2 gm/ Dextrose 55 ml @ 110 mls/hr Q24H IVPB 09/24/19 22:00 10/01/19 21:59 09/25/19 21:10 Clonidine HCl (Catapres Tab) 0.1 mg Q8H PRN GT hypertension 09/24/19 13:15 12/23/19 13:14 Dextrose (Dextrose 50%) 25 ml Q30M PRN IV Hypoglycemia 09/24/19 11:30 12/23/19 11:29 Dextrose (Dextrose 50%) 50 ml Q30M PRN IV Hypoglycemia 09/24/19 11:30 12/23/19 11:29 Docusate Sodium (Colace) 100 mg DAILY GT 09/25/19 09:00 10/25/19 08:59 09/25/19 09:53 Enoxaparin Sodium (Lovenox) 40 mg DAILY SUBQ 09/25/19 09:00 12/24/19 08:59 09/25/19 09:56 Insulin Aspart (NovoLOG) Q6HR SUBQ 09/24/19 18:00 12/23/19 16:29 09/25/19 01:15 Insulin Detemir (Levemir) 10 units BEDTIME SUBQ 09/24/19 21:00 12/23/19 20:59 09/25/19 20:51 Magnesium Hydroxide (Mom) 30 ml DAILYPRN PRN GT Constipation 09/24/19 11:30 10/24/19 11:29 Multivitamins (Multivitamins W/ Minerals 15ml Liquid) 15 ml DAILY GT 09/25/19 09:00 10/25/19 08:59 09/25/19 09:53 Pantoprazole (Protonix) 40 mg DAILY IVP 09/25/19 09:00 10/25/19 08:59 09/25/19 09:55 Sennosides (Senokot) 17.2 mg QHS GT 09/24/19 21:00 10/24/19 20:59 09/25/19 20:49 Sodium Phosphate (Fleet's Sodium Phosl Enema) 133 ml DAILYPRN PRN RECTAL Constipation 09/24/19 11:30 10/24/19 11:29 Zinc Sulfate (Zinc Sulfate) 220 mg DAILY GT 09/25/19 09:00 12/24/19 08:59 09/25/19 09:54 Assessment/Plan Assessment/Plan ASSESSMENT: 1. General deconditioning. 2. History of CVA. 3. H/o dysphagia. 4. Debility, deconditioning, bedbound, quadriparesis. 5. Normocytic anemia. 6. Diabetes type 2. 7. GI and DVT prophylaxis. 8. Stage 4 Sacral decubitus 9. Covid 19 negative x 2 PLAN OF CARE: O2 PRN Pulmonary care LE [place] r/o DVT PPX - Lovenox Monitor labs AB per Infectious Disease Ulisses Bunch MD Sep 26, 2019 08:40
[2019-09-26] MEDS: Multivitamins W/Minerals 15 ML UDC GT SCH (09:33)
[2019-09-26] MEDS: Pantoprazole Inj IVP SCH (09:33)
[2019-09-26] MEDS: Zinc Sulfate 220mg GT SCH (09:33)
[2019-09-26] MEDS: Aspirin Baby 81mg GT SCH (09:33)
[2019-09-26] MEDS: Enoxaparin 40mg Inj SUBQ SCH (09:33)
[2019-09-26] MEDS: Ascorbic Acid 500mg tab GT SCH (09:33)
[2019-09-26] MEDS: Docusate 100mg/10ml Liq GT SCH (09:33)
--- NOTE | 2019-09-26 10:15 | NUR ---
RD ASSESSMENT & RECOMMENDATIONS SEE CARE ACTIVITY FOR COMPLETE ASSESSMENT DAILY ESTIMATED NEEDS: Needs based on Wound, bedbound 66kg 27-32 kcals/kg 1969-0465 total kcals 1.25-2 g protein/kg 83-132 g total protein 27-32ml/kcal mL/kg 7300-6734 total fluid mLs NUTRITION DIAGNOSIS: 1) Increased kcal and protein needs r/t wound healing, as evidenced by pt adm w/ multiple full thickness wounds, including sacral stage 4 wound, refer to WC eval 2) Swallowing difficulty r/t dysphagia and h/o CVA as evidenced by pt is PEG dep. CURRENT TF:Glucerna 1.5 @ 60ml/hr x 20 hrs ENTERAL NUTRITION RECOMMENDATIONS: Glucerna 1.5 @ 65ml/hr x 20 hrs to provide 1300ml, 1950kcal, 107g prot, 987ml free water - Increased goal by 5ml/hr to goal of 65ml/hr to better meet est needs - HOB over 30 degrees, flush per MD. ADDITIONAL RECOMMENDATIONS: 1) Wound care: Continue Vit C + ZnSO4; Add MIRELLA BID via PEG 2) Monitor BGs closely, watch for hypoglycemia when TF is held 3) Per SNF: 5'10", 146lbs -> Calibrated bedscale wt for accurate CBW 4) Monitor lytes, replete as needed . .
[2019-09-26 12:00] VITALS: BP 117/64
--- NOTE | 2019-09-26 12:24 | Infectious Diseases Prog Note ---
Assessment/Plan ASSESSMENT: The patient is a 64-year-old male with worsening mental status. 1. probable sepsis. Afebrile Leukocytosis, SP 2. UTI. -u/a wbc 2-4, nit neg, leuk +3; ucx >100k GNR -09/23 Bcx NTD 3. Pulmonary congestion -CXR: Mild cardiomegaly and pulmonary venous congestion. 4. Hx of COVID19 July 2019 -09/23, 09/24 Rapid COVID PCR neg x2 5. Acute encephalopathy COPD. Diabetes. stage IV sacral decubitus. peripheral neuropathy. History of CVA. Anemia. History of hyperglycemia. CHF. dysphagya/achalasia. History of DVT and pulmonary emboli. Hyperlipidemia. hypertension. GERD. MRSA and VRE colonized PLAN: 1. We will start the patient on IV Rocephin #3 empirically pending ucx culture. 2. Monitor CBC. No BMP. 3. Monitor cultures (blood, urine). 4.COVID neg x2; ok to dc isolation 6. Monitor CBC and chest x-ray. 7. Based on the patient's clinical course and laboratories, we will do further recommendations. Thank you for this consultation. I will follow the patient with you during this hospitalization. Subjective Allergies: Coded Allergies: No Known Allergies (Unverified , 09/29/17) afebrile at RA leukocytosis resolved COVID PCR (rapid) neg x2 Bcx NTD Objective Last 24 Hour Vital Signs Date Time Temp Pulse Resp B/P (MAP) Pulse Ox O2 Delivery O2 Flow Rate FiO2 09/26/19 09:00 Room Air 09/26/19 08:00 97.8 78 18 107/65 (79) 96 09/26/19 04:00 98.4 89 18 120/69 (86) 94 09/26/19 00:00 98.5 68 20 108/55 (72) 95 09/25/19 21:00 Room Air 09/25/19 20:00 98.0 59 18 140/63 (88) 94 09/25/19 16:00 97.7 69 19 116/61 (79) 93 Height (Feet): 5 Height (Inches): 8.00 Weight (Pounds): 150 HEENT: Mild pale conjunctivae. No icterus. NECK: No lymphadenopathy. CHEST: Clear. HEART: S1 and S2. ABDOMEN: Soft, nontender. EXTREMITIES: No cyanosis. NEUROLOGIC: Nonverbal, awake. SKIN: Stage IV decubitus in sacral area, not grossly infected. No purulent discharge. Microbiology Date/Time Source Procedure Growth Status 09/24/19 05:00 Blood Blood Culture - Preliminary NO GROWTH AFTER 48 HOURS Resulted 09/24/19 04:45 Blood Blood Culture - Preliminary NO GROWTH AFTER 48 HOURS Resulted 09/25/19 06:30 Nasopharynx SARS-CoV-2 RdRp Gene Assay - Final Complete 09/24/19 06:00 Nasal Nares MRSA Culture - Final Staphylococcus Aureus - Mrsa Complete 09/24/19 05:00 Nasopharynx SARS-CoV-2 RdRp Gene Assay - Final Complete 09/25/19 06:30 Urine,Clean Catch Urine Culture - Preliminary Gram Negative Bacillus 1 Resulted 09/24/19 06:00 Rectum VRE Culture - Final Enterococcus Faecalis - Vre Complete 09/24/19 06:00 Rectum - Final NO CARBAPENEM-RESISTANT ENTEROBACTERI... Complete Laboratory Tests Test 09/26/19 07:15 White Blood Count 9.0 K/UL (4.8-10.8) Red Blood Count 4.08 M/UL (4.70-6.10) L Hemoglobin 10.1 G/DL (14.2-18.0) L Hematocrit 32.7 % (42.0-52.0) L Mean Corpuscular Volume 80 FL (80-99) Mean Corpuscular Hemoglobin 24.7 PG (27.0-31.0) L Mean Corpuscular Hemoglobin Concent 30.7 G/DL (32.0-36.0) L Red Cell Distribution Width 16.4 % (11.6-14.8) H Platelet Count 306 K/UL (150-450) Mean Platelet Volume 9.5 FL (6.5-10.1) Neutrophils (%) (Auto) 72.5 % (45.0-75.0) Lymphocytes (%) (Auto) 17.0 % (20.0-45.0) L Monocytes (%) (Auto) 4.7 % (1.0-10.0) Eosinophils (%) (Auto) 3.9 % (0.0-3.0) H Basophils (%) (Auto) 1.9 % (0.0-2.0) Sodium Level 141 MMOL/L (136-145) Potassium Level 3.7 MMOL/L (3.5-5.1) Chloride Level 105 MMOL/L (98-107) Carbon Dioxide Level 31 MMOL/L (21-32) Anion Gap 5 mmol/L (5-15) Blood Urea Nitrogen 22 mg/dL (7-18) H Creatinine 0.6 MG/DL (0.55-1.30) Estimat Glomerular Filtration Rate > 60 mL/min (>60) Glucose Level 128 MG/DL (74-106) H Calcium Level 8.5 MG/DL (8.5-10.1) Total Bilirubin 0.2 MG/DL (0.2-1.0) Aspartate Amino Transf (AST/SGOT) 26 U/L (15-37) Alanine Aminotransferase (ALT/SGPT) 32 U/L (12-78) Alkaline Phosphatase 90 U/L (46-116) Total Protein 7.3 G/DL (6.4-8.2) Albumin 2.5 G/DL (3.4-5.0) L Globulin 4.8 g/dL Albumin/Globulin Ratio 0.5 (1.0-2.7) L Current Medications Medications (Trade) Dose Ordered Sig/Patience Route PRN Reason Start Time Stop Time Status Last Admin Dose Admin Acetaminophen (Tylenol) 650 mg Q4H PRN GT Mild Pain (Pain Scale 1-3) 09/24/19 11:30 10/24/19 11:29 Acetaminophen (Tylenol) 650 mg Q4H PRN GT Temp >100.5 09/24/19 11:30 10/24/19 11:29 Acetaminophen/ Hydrocodone Bitart ([place] 5/325) 1 tab Q6H PRN GT Pain Scale 4-10 09/24/19 11:30 10/01/19 11:29 Albuterol/ Ipratropium (Albuterol/ Ipratropium) 3 ml Q6H PRN INH Shortness of Breath 09/24/19 13:15 09/29/19 13:14 09/24/19 13:25 Ascorbic Acid (Vitamin C) 500 mg DAILY GT 09/25/19 09:00 10/25/19 08:59 09/26/19 09:33 Aspirin (ASA) 81 mg DAILY GT 09/25/19 09:00 11/09/19 08:59 09/26/19 09:33 Bisacodyl (Dulcolax) 10 mg DAILYPRN PRN RECTAL Constipation 09/24/19 11:30 12/23/19 11:29 Ceftriaxone Sodium 2 gm/ Dextrose 55 ml @ 110 mls/hr Q24H IVPB 09/24/19 22:00 10/01/19 21:59 09/25/19 21:10 Clonidine HCl (Catapres Tab) 0.1 mg Q8H PRN GT hypertension 09/24/19 13:15 12/23/19 13:14 Dextrose (Dextrose 50%) 25 ml Q30M PRN IV Hypoglycemia 09/24/19 11:30 12/23/19 11:29 Dextrose (Dextrose 50%) 50 ml Q30M PRN IV Hypoglycemia 09/24/19 11:30 12/23/19 11:29 Docusate Sodium (Colace) 100 mg DAILY GT 09/25/19 09:00 10/25/19 08:59 09/26/19 09:33 Enoxaparin Sodium (Lovenox) 40 mg DAILY SUBQ 09/25/19 09:00 12/24/19 08:59 09/26/19 09:33 Insulin Aspart (NovoLOG) Q6HR SUBQ 09/24/19 18:00 12/23/19 16:29 09/26/19 11:53 Insulin Detemir (Levemir) 10 units BEDTIME SUBQ 09/24/19 21:00 12/23/19 20:59 09/25/19 20:51 Magnesium Hydroxide (Mom) 30 ml DAILYPRN PRN GT Constipation 09/24/19 11:30 10/24/19 11:29 Multivitamins (Multivitamins W/ Minerals 15ml Liquid) 15 ml DAILY GT 09/25/19 09:00 10/25/19 08:59 09/26/19 09:33 Pantoprazole (Protonix) 40 mg DAILY IVP 09/25/19 09:00 10/25/19 08:59 09/26/19 09:33 Sennosides (Senokot) 17.2 mg QHS GT 09/24/19 21:00 10/24/19 20:59 09/25/19 20:49 Sodium Phosphate (Fleet's Sodium Phosl Enema) 133 ml DAILYPRN PRN RECTAL Constipation 09/24/19 11:30 10/24/19 11:29 Zinc Sulfate (Zinc Sulfate) 220 mg DAILY GT 09/25/19 09:00 12/24/19 08:59 09/26/19 09:33 Nallely Rasheed M.D. Sep 26, 2019 12:24
--- NOTE | 2019-09-26 12:28 | Surgery Progress Note ---
Surgery Progress Note Subjective Additional Comments comfortable stable labs noted exam unchanged dressings going well Objective Last 24 Hour Vital Signs Date Time Temp Pulse Resp B/P (MAP) Pulse Ox O2 Delivery O2 Flow Rate FiO2 09/26/19 09:00 Room Air 09/26/19 08:00 97.8 78 18 107/65 (79) 96 09/26/19 04:00 98.4 89 18 120/69 (86) 94 09/26/19 00:00 98.5 68 20 108/55 (72) 95 09/25/19 21:00 Room Air 09/25/19 20:00 98.0 59 18 140/63 (88) 94 09/25/19 16:00 97.7 69 19 116/61 (79) 93 I&O Intake and Output 09/25/19 09/26/19 19:00 07:00 Output Total 500 ml 500 ml Balance -500 ml -500 ml Output Urine Total 500 ml 500 ml # Voids 1 # Bowel Movements 1 1 Dressing: other Wound: other Cardiovascular: RSR Respiratory: decreased breath sounds Abdomen: soft, non-tender, present bowel sounds Extremities: no tenderness, no cyanosis Laboratory Tests Test 09/26/19 07:15 White Blood Count 9.0 K/UL (4.8-10.8) Red Blood Count 4.08 M/UL (4.70-6.10) L Hemoglobin 10.1 G/DL (14.2-18.0) L Hematocrit 32.7 % (42.0-52.0) L Mean Corpuscular Volume 80 FL (80-99) Mean Corpuscular Hemoglobin 24.7 PG (27.0-31.0) L Mean Corpuscular Hemoglobin Concent 30.7 G/DL (32.0-36.0) L Red Cell Distribution Width 16.4 % (11.6-14.8) H Platelet Count 306 K/UL (150-450) Mean Platelet Volume 9.5 FL (6.5-10.1) Neutrophils (%) (Auto) 72.5 % (45.0-75.0) Lymphocytes (%) (Auto) 17.0 % (20.0-45.0) L Monocytes (%) (Auto) 4.7 % (1.0-10.0) Eosinophils (%) (Auto) 3.9 % (0.0-3.0) H Basophils (%) (Auto) 1.9 % (0.0-2.0) Sodium Level 141 MMOL/L (136-145) Potassium Level 3.7 MMOL/L (3.5-5.1) Chloride Level 105 MMOL/L (98-107) Carbon Dioxide Level 31 MMOL/L (21-32) Anion Gap 5 mmol/L (5-15) Blood Urea Nitrogen 22 mg/dL (7-18) H Creatinine 0.6 MG/DL (0.55-1.30) Estimat Glomerular Filtration Rate > 60 mL/min (>60) Glucose Level 128 MG/DL (74-106) H Calcium Level 8.5 MG/DL (8.5-10.1) Total Bilirubin 0.2 MG/DL (0.2-1.0) Aspartate Amino Transf (AST/SGOT) 26 U/L (15-37) Alanine Aminotransferase (ALT/SGPT) 32 U/L (12-78) Alkaline Phosphatase 90 U/L (46-116) Total Protein 7.3 G/DL (6.4-8.2) Albumin 2.5 G/DL (3.4-5.0) L Globulin 4.8 g/dL Albumin/Globulin Ratio 0.5 (1.0-2.7) L Plan Problems: (1) Septic shock (2) Dehydration (3) Hypokalemia (4) Hypocalcemia (5) Fever (6) Leukocytosis (7) Sepsis (8) Sacral decubitus ulcer Assessment & Plan: 64-year-old male well-known to me from prior care plans who presents with stage IV sacral decubitus ulcer that has been poor and slow healing. Periwound does identify some scarring and prior healed tissue. The wound is palpable down to the sacrum bone. No active infection identified. Dressings with mild heme saturation. No active drainage. No significant foul odor. Incontinence identified which does occasionally involve the wound bed. Borders and tunneling (L)6cm x(W)5.5cm x (D)2.5cm, undermining clockwise 10-11 by 2.8cm @10o'clock,tunneling clockwise @5o'clock by 4.9cm. Base of wound is beefy red. Additional shearing and hyperpigmentation periwound. Hyperpigmentation R and L ischial tuberosities. Tear noted to urinary Meatus . Resolving Full thickness Pressure injury. Base of injury 80% pink epithelial 20 % dry eschar. .Hyperpigmentation periwound.(L)4cm x (W) 4.5cm. R Heel is boggy but pink./L 1s3, 2nd and 4th nail matrix are necrotic but dry. R 1st and R4th nail matrix are necrotic but dry. Tx.Plan: Cleanse Sacral wound with Saline. Loosely Pack wound with Hydrogel impregnated Kerlix. Apply Moisture Barrier Paste Periwound. Cover with Optifoam drsg. Change Daily and prn. Apply Betadine to L heel. Cover with Optifoam drsg. Change every3 days and prn. Apply Betadine to R 1st and 2nd metatarsals Daily. Leave Open to air. Apply Betadine to L 1st,2nd and 4th metatarsals.Leave open to air. Apply Cavilon Skin Barrier to R heel and Malleoli. Cover with Optifoam drsg. Change every 7 days and prn. Reposition at least every 2hours or as tolerated. Place Pillow between knees. Off-load heels with pillow. APM/SELENA Mattress overlay. (9) Stage IV decubitus ulcer (10) Protein-calorie malnutrition, severe Assessment & Plan: alb 3.3 bmi 22.8 skin turgor poor wounds slow healing mvi vit c nutritional optimization (11) History of CVA (cerebrovascular accident) (12) Acute kidney injury (13) Acute encephalopathy (14) Hyperosmolar non-ketotic state in patient with type 2 diabetes mellitus (15) Acute CVA (cerebrovascular accident) (16) Hyperosmolar hyperglycemic coma due to diabetes mellitus without ketoacidosis Tonio Raza Sep 26, 2019 12:28
--- NOTE | 2019-09-26 12:29 | General Progress Note ---
Assessment/Plan Status: stable Assessment/Plan: S: not verbal O: seems comfortable, PEG tube, urinary Naik in place PHYSICAL EXAMINATION:HEAD AND NECK: Atraumatic and normocephalic. CHEST: Diffuse bronchial breathing sounds.HEART: S1 and S2. Regular rate and rhythm. ABDOMEN: Soft. PEG tube is in place.NEUROLOGIC: The patient is aphasic, however, is awake. MUSCULOSKELETAL:quadriparesis and paraplegic. LABORATORY DATA: Dated September 25 ASSESSMENT: 1. General deconditioning. 2. SIRS 3. UTI 3. History of CVA. 3. Dysphagia. 4. Debility, deconditioning, bedbound, quadriparesis. 5. Normocytic anemia. 6. Diabetes type 2. 7. GI and DVT prophylaxis. Plan: Pending U/C c/w current abx Subjective Allergies: Coded Allergies: No Known Allergies (Unverified , 09/29/17) Objective Last 24 Hour Vital Signs Date Time Temp Pulse Resp B/P (MAP) Pulse Ox O2 Delivery O2 Flow Rate FiO2 09/26/19 09:00 Room Air 09/26/19 08:00 97.8 78 18 107/65 (79) 96 09/26/19 04:00 98.4 89 18 120/69 (86) 94 09/26/19 00:00 98.5 68 20 108/55 (72) 95 09/25/19 21:00 Room Air 09/25/19 20:00 98.0 59 18 140/63 (88) 94 09/25/19 16:00 97.7 69 19 116/61 (79) 93 Intake and Output 09/25/19 09/26/19 19:00 07:00 Output Total 500 ml 500 ml Balance -500 ml -500 ml Output Urine Total 500 ml 500 ml # Voids 1 # Bowel Movements 1 1 Laboratory Tests 09/26/19 07:15: White Blood Count 9.0, Red Blood Count 4.08L, Hemoglobin 10.1L, Hematocrit 32.7L , Mean Corpuscular Volume 80, Mean Corpuscular Hemoglobin 24.7L, Mean Corpuscular Hemoglobin Concent 30.7L, Red Cell Distribution Width 16.4H, Platelet Count 306, Mean Platelet Volume 9.5, Neutrophils (%) (Auto) 72.5, Lymphocytes (%) (Auto) 17.0L, Monocytes (%) (Auto) 4.7, Eosinophils (%) (Auto) 3.9H, Basophils (%) (Auto) 1.9, Sodium Level 141, Potassium Level 3.7, Chloride Level 105, Carbon Dioxide Level 31, Anion Gap 5, Blood Urea Nitrogen 22H, Creatinine 0.6, Estimat Glomerular Filtration Rate > 60, Glucose Level 128H, Calcium Level 8.5, Total Bilirubin 0.2, Aspartate Amino Transf (AST/SGOT) 26, Alanine Aminotransferase (ALT/SGPT) 32, Alkaline Phosphatase 90, Total Protein 7.3, Albumin 2.5L, Globulin 4.8, Albumin/Globulin Ratio 0.5L Height (Feet): 5 Height (Inches): 8.00 Weight (Pounds): 150 Geo Whitten MD Sep 26, 2019 12:29
[2019-09-26 16:00] VITALS: BP 132/86
--- NOTE | 2019-09-26 16:21 | NUR ---
CASE MANAGEMENT:REVIEW 09/26/19 SI: SIRS. UTI 97.9 90 18 117/64 95% ON RA H/H-10.1/32.7 BUN+22 IS: IV ROCEPHIN Q24 LOVENOX SQ QD VIT C GT QD ASA GT QD IV ROCEPHIN Q24 LEVEMIR SQ QHS : MED/SURG STATUS 4 EAST DCP: FROM [facility]
--- NOTE | 2019-09-26 19:35 | NUR ---
NURSE NOTES: Patient in bed, no signs of pain, no SOB noted. With Gtube feeding. Call light in reach. Bed in lowest, lock engaged and alarm on. Will continue plan of care.
--- NOTE | 2019-09-26 19:35 | NUR ---
HAND-OFF: Report given to MARIA ELENA Bowden. Endorsed POC.
[2019-09-26 20:00] VITALS: BP 147/83
--- NOTE | 2019-09-26 20:10 | Cardiology Progress Note ---
Assessment/Plan Assessment/Plan 1. Dyspnea. Chest x-ray shows signs of congestive heart failure, although pneumonitis of COVID-19 infection can cause more or less the same CXR pattern. ProBNP of 479 is s/o CHF. Will review echo images. 2. History of CVA with left hemiparesis. Continue ASA and atorvastatin. 3. Dysphagia, status post PEG placement. 4. History of diabetes mellitus. 5. History of dementia. 6. History of neuropathy. Subjective Subjective No cardiac events reported. Objective Last 24 Hour Vital Signs Date Time Temp Pulse Resp B/P (MAP) Pulse Ox O2 Delivery O2 Flow Rate FiO2 09/26/19 16:00 98.8 83 18 132/86 (101) 100 09/26/19 12:00 97.9 90 18 117/64 (81) 95 09/26/19 09:00 Room Air 09/26/19 08:00 97.8 78 18 107/65 (79) 96 09/26/19 04:00 98.4 89 18 120/69 (86) 94 09/26/19 00:00 98.5 68 20 108/55 (72) 95 09/25/19 21:00 Room Air Intake and Output 09/25/19 09/26/19 19:00 07:00 Output Total 500 ml 500 ml Balance -500 ml -500 ml Output Urine Total 500 ml 500 ml # Voids 1 # Bowel Movements 1 1 2D Echo: TDS, normal LV systolic function, Grade I LVDD. Laboratory Tests Test 09/26/19 07:15 White Blood Count 9.0 K/UL (4.8-10.8) Red Blood Count 4.08 M/UL (4.70-6.10) L Hemoglobin 10.1 G/DL (14.2-18.0) L Hematocrit 32.7 % (42.0-52.0) L Mean Corpuscular Volume 80 FL (80-99) Mean Corpuscular Hemoglobin 24.7 PG (27.0-31.0) L Mean Corpuscular Hemoglobin Concent 30.7 G/DL (32.0-36.0) L Red Cell Distribution Width 16.4 % (11.6-14.8) H Platelet Count 306 K/UL (150-450) Mean Platelet Volume 9.5 FL (6.5-10.1) Neutrophils (%) (Auto) 72.5 % (45.0-75.0) Lymphocytes (%) (Auto) 17.0 % (20.0-45.0) L Monocytes (%) (Auto) 4.7 % (1.0-10.0) Eosinophils (%) (Auto) 3.9 % (0.0-3.0) H Basophils (%) (Auto) 1.9 % (0.0-2.0) Sodium Level 141 MMOL/L (136-145) Potassium Level 3.7 MMOL/L (3.5-5.1) Chloride Level 105 MMOL/L (98-107) Carbon Dioxide Level 31 MMOL/L (21-32) Anion Gap 5 mmol/L (5-15) Blood Urea Nitrogen 22 mg/dL (7-18) H Creatinine 0.6 MG/DL (0.55-1.30) Estimat Glomerular Filtration Rate > 60 mL/min (>60) Glucose Level 128 MG/DL (74-106) H Calcium Level 8.5 MG/DL (8.5-10.1) Total Bilirubin 0.2 MG/DL (0.2-1.0) Aspartate Amino Transf (AST/SGOT) 26 U/L (15-37) Alanine Aminotransferase (ALT/SGPT) 32 U/L (12-78) Alkaline Phosphatase 90 U/L (46-116) Total Protein 7.3 G/DL (6.4-8.2) Albumin 2.5 G/DL (3.4-5.0) L Globulin 4.8 g/dL Albumin/Globulin Ratio 0.5 (1.0-2.7) L Microbiology Date/Time Source Procedure Growth Status 09/24/19 05:00 Blood Blood Culture - Preliminary NO GROWTH AFTER 48 HOURS Resulted 09/24/19 04:45 Blood Blood Culture - Preliminary NO GROWTH AFTER 48 HOURS Resulted 09/25/19 06:30 Nasopharynx SARS-CoV-2 RdRp Gene Assay - Final Complete 09/24/19 06:00 Nasal Nares MRSA Culture - Final Staphylococcus Aureus - Mrsa Complete 09/24/19 05:00 Nasopharynx SARS-CoV-2 RdRp Gene Assay - Final Complete 09/25/19 06:30 Urine,Clean Catch Urine Culture - Preliminary Gram Negative Bacillus 1 Resulted 09/24/19 06:00 Rectum VRE Culture - Final Enterococcus Faecalis - Vre Complete 09/24/19 06:00 Rectum - Final NO CARBAPENEM-RESISTANT ENTEROBACTERI... Complete Objective HEENT: Atraumatic, and normocephalic. Anicteric. Pupils are equal, round, and reactive to light and accommodation. Extraocular muscles intact. NECK: JVP less than 5 cm. No carotid bruit. Carotid upstrokes 2+ bilaterally. CARDIOVASCULAR: Normal S1, S2. Regular rate and rhythm. No murmurs, gallops, or rubs. PMI is at fourth intercostal space in the midclavicular line. LUNGS: Bibasilar crackles. ABDOMEN: Soft, nontender, nondistended. Positive G-tube. MUSCULOSKELETAL: Contracted. Sacral ulcers and heel ulcers. Rickey Abraham MD Sep 26, 2019 20:10
[2019-09-26] MEDS: Sennosides 8.6mg tab GT SCH (20:38)
[2019-09-26] MEDS: Levemir Flexpen SUBQ SCH (20:50)
[2019-09-26] MEDS: cefTRIAXone 2 GM in D5W 55 ML IVPB SCH (21:00)
[2019-09-27] VITALS: BP 128/69
[2019-09-27 04:00] VITALS: BP 108/68
[2019-09-27] MEDS: NovoLOG Insulin Flexpen SUBQ SCH ×4 (05:13→23:38)
--- NOTE | 2019-09-27 06:08 | NUR ---
NURSE NOTES: Charge nurse received a call from [facility] for blood culture result of 1 bottle, gram positive cocci. Called Dr. Tinoco, spoke with exchange waiting for call back.
--- NOTE | 2019-09-27 07:36 | NUR ---
HAND-OFF: Report given to MARIA ELENA Tolbert.
--- NOTE | 2019-09-27 07:40 | NUR ---
NURSE NOTES: RECEIVED PATIENT A/A/OX1, NONVERBAL. ABLE TO RESPONSE BY NAME AND TACTILE STIMULI. HOB ELEVATED FOR ASPIRATION PRECAUTIONS. GT INPLACED AND TOLERATING WELL. NO GASTRIC RESIDUAL NOTED. F/C INPLACED AND DRAINING WELL BY GRAVITY. KEPT BED IN THE LOWEST POSITION FOR SAFETY. SIDERAILS ARE UPX3. BED BRAKES AND LOCK ENGAGED. CALL LIGHT IS WITHIN REACH. WILL CONT TO MONITOR.
[2019-09-27 08:00] VITALS: BP 109/68
[2019-09-27] MEDS: Ascorbic Acid 500mg tab GT SCH (08:35)
[2019-09-27] MEDS: Aspirin Baby 81mg GT SCH (08:35)
[2019-09-27] MEDS: Docusate 100mg/10ml Liq GT SCH (08:35)
[2019-09-27] MEDS: Multivitamins W/Minerals 15 ML UDC GT SCH (08:36)
[2019-09-27] MEDS: Zinc Sulfate 220mg GT SCH (08:36)
[2019-09-27] MEDS: Enoxaparin 40mg Inj SUBQ SCH (08:42)
--- NOTE | 2019-09-27 09:55 | NUR ---
NURSE NOTES: DR WORTHINGTON CALLED BACK AND OBTAINED NEW ORDER FOR THE BLOOD CULTURE RESULT. WILL CONT TO MONITOR.
[2019-09-27] MEDS: Pantoprazole Inj IVP SCH (10:05)
--- NOTE | 2019-09-27 10:59 | Surgery Progress Note ---
Surgery Progress Note Subjective Additional Comments no acute events no n/v/f/c tf tolerated comfortable today Objective Last 24 Hour Vital Signs Date Time Temp Pulse Resp B/P (MAP) Pulse Ox O2 Delivery O2 Flow Rate FiO2 09/27/19 08:00 98.2 90 18 109/68 (82) 95 09/27/19 04:44 99.0 09/27/19 04:00 100.2 100 20 108/68 (81) 95 09/27/19 00:00 99.7 110 24 128/69 (88) 94 09/26/19 21:00 Room Air 09/26/19 20:00 98.8 99 20 147/83 (104) 96 09/26/19 16:00 98.8 83 18 132/86 (101) 100 09/26/19 12:00 97.9 90 18 117/64 (81) 95 I&O Intake and Output 09/26/19 09/27/19 19:00 07:00 Intake Total 60 ml 935 ml Output Total 600 ml Balance -540 ml 935 ml Intake Free Water 400 ml IV Total 55 ml Tube Feeding 60 ml 480 ml Output Urine Total 600 ml # Bowel Movements 1 Dressing: saturated Wound: clean Cardiovascular: RSR Respiratory: clear Abdomen: soft, non-tender, present bowel sounds Extremities: no edema, no tenderness, no cyanosis Laboratory Tests Test 09/27/19 06:09 Pro-B-Type Natriuretic Peptide 507 pg/mL (0-125) H Plan Problems: (1) Septic shock (2) Dehydration (3) Hypokalemia (4) Hypocalcemia (5) Fever (6) Leukocytosis (7) Sepsis (8) Sacral decubitus ulcer Assessment & Plan: 64-year-old male well-known to me from prior care plans who presents with stage IV sacral decubitus ulcer that has been poor and slow healing. Periwound does identify some scarring and prior healed tissue. The wound is palpable down to the sacrum bone. No active infection identified. Dressings with mild heme saturation. No active drainage. No significant foul odor. Incontinence identified which does occasionally involve the wound bed. Borders and tunneling (L)6cm x(W)5.5cm x (D)2.5cm, undermining clockwise 10-11 by 2.8cm @10o'clock,tunneling clockwise @5o'clock by 4.9cm. Base of wound is beefy red. Additional shearing and hyperpigmentation periwound. Hyperpigmentation R and L ischial tuberosities. Tear noted to urinary Meatus . Resolving Full thickness Pressure injury. Base of injury 80% pink epithelial 20 % dry eschar. .Hyperpigmentation periwound.(L)4cm x (W) 4.5cm. R Heel is boggy but pink./L 1s3, 2nd and 4th nail matrix are necrotic but dry. R 1st and R4th nail matrix are necrotic but dry. Tx.Plan: Cleanse Sacral wound with Saline. Loosely Pack wound with Hydrogel impregnated Kerlix. Apply Moisture Barrier Paste Periwound. Cover with Optifoam drsg. Change Daily and prn. Apply Betadine to L heel. Cover with Optifoam drsg. Change every3 days and prn. Apply Betadine to R 1st and 2nd metatarsals Daily. Leave Open to air. Apply Betadine to L 1st,2nd and 4th metatarsals.Leave open to air. Apply Cavilon Skin Barrier to R heel and Malleoli. Cover with Optifoam drsg. Change every 7 days and prn. Reposition at least every 2hours or as tolerated. Place Pillow between knees. Off-load heels with pillow. APM/SELENA Mattress overlay. labs improved cont abx cont tf (9) Stage IV decubitus ulcer (10) Protein-calorie malnutrition, severe Assessment & Plan: alb 3.3 bmi 22.8 skin turgor poor wounds slow healing mvi vit c nutritional optimization (11) History of CVA (cerebrovascular accident) (12) Acute kidney injury (13) Acute encephalopathy (14) Hyperosmolar non-ketotic state in patient with type 2 diabetes mellitus (15) Acute CVA (cerebrovascular accident) (16) Hyperosmolar hyperglycemic coma due to diabetes mellitus without ketoacidosis Tonio Raza Sep 27, 2019 10:59
--- NOTE | 2019-09-27 10:59 | Infectious Diseases Prog Note ---
Assessment/Plan ASSESSMENT: The patient is a 64-year-old male with worsening mental status. 1. Sepsis. Afebrile Leukocytosis, SP 2. UTI. -u/a wbc 2-4, nit neg, leuk +3; ucx >100k ESBL E.coli Gram positive bacteremia- contaminant vs real -09/23 Bcx 1/4 GPC clustres 3. Pulmonary congestion -CXR: Mild cardiomegaly and pulmonary venous congestion. 4. Hx of COVID19 July 2019 -09/23, 09/24 Rapid COVID PCR neg x2 5. Acute encephalopathy COPD. Diabetes. stage IV sacral decubitus. peripheral neuropathy. History of CVA. Anemia. History of hyperglycemia. CHF. dysphagya/achalasia. History of DVT and pulmonary emboli. Hyperlipidemia. hypertension. GERD. MRSA and VRE colonized PLAN: 1. Switch IV Rocephin #4 to Ertapenem for ESBL UTI and add IV Vancomycin for GPC bacteremia 2. Monitor CBC/CMP; CBC and CMP am 3. Monitor cultures (blood, urine). 4.COVID neg x2; ok to dc isolation 6. Bc x2 7. Based on the patient's clinical course and laboratories, we will do further recommendations. Thank you for this consultation. I will follow the patient with you during this hospitalization. Discussed with RN. Subjective Allergies: Coded Allergies: No Known Allergies (Unverified , 09/29/17) Tm 100.2 bacteremic no leukocytosis Objective Last 24 Hour Vital Signs Date Time Temp Pulse Resp B/P (MAP) Pulse Ox O2 Delivery O2 Flow Rate FiO2 09/27/19 08:00 98.2 90 18 109/68 (82) 95 09/27/19 04:44 99.0 09/27/19 04:00 100.2 100 20 108/68 (81) 95 09/27/19 00:00 99.7 110 24 128/69 (88) 94 09/26/19 21:00 Room Air 09/26/19 20:00 98.8 99 20 147/83 (104) 96 09/26/19 16:00 98.8 83 18 132/86 (101) 100 09/26/19 12:00 97.9 90 18 117/64 (81) 95 Height (Feet): 5 Height (Inches): 8.00 Weight (Pounds): 150 HEENT: Mild pale conjunctivae. NECK: No lymphadenopathy. CHEST: Clear. HEART: S1 and S2. ABDOMEN: Soft, nontender. EXTREMITIES: No cyanosis. NEUROLOGIC: Nonverbal, awake. SKIN: Stage IV decubitus in sacral area, not grossly infected. No purulent discharge. Microbiology Date/Time Source Procedure Growth Status 09/25/19 06:30 Nasopharynx SARS-CoV-2 RdRp Gene Assay - Final Complete 09/25/19 06:30 Urine,Clean Catch Urine Culture - Final Escherichia Coli - Esbl Complete Laboratory Tests Test 09/27/19 06:09 Pro-B-Type Natriuretic Peptide 507 pg/mL (0-125) H Current Medications Medications (Trade) Dose Ordered Sig/Patience Route PRN Reason Start Time Stop Time Status Last Admin Dose Admin Acetaminophen (Tylenol) 650 mg Q4H PRN GT Mild Pain (Pain Scale 1-3) 09/24/19 11:30 10/24/19 11:29 Acetaminophen (Tylenol) 650 mg Q4H PRN GT Temp >100.5 09/24/19 11:30 10/24/19 11:29 Acetaminophen/ Hydrocodone Bitart ([place] 5/325) 1 tab Q6H PRN GT Pain Scale 4-10 09/24/19 11:30 10/01/19 11:29 Albuterol/ Ipratropium (Albuterol/ Ipratropium) 3 ml Q6H PRN INH Shortness of Breath 09/24/19 13:15 09/29/19 13:14 09/24/19 13:25 Ascorbic Acid (Vitamin C) 500 mg DAILY GT 09/25/19 09:00 10/25/19 08:59 09/27/19 08:35 Aspirin (ASA) 81 mg DAILY GT 09/25/19 09:00 11/09/19 08:59 09/27/19 08:35 Bisacodyl (Dulcolax) 10 mg DAILYPRN PRN RECTAL Constipation 09/24/19 11:30 12/23/19 11:29 Ceftriaxone Sodium 2 gm/ Dextrose 55 ml @ 110 mls/hr Q24H IVPB 09/24/19 22:00 10/01/19 21:59 09/26/19 21:00 Clonidine HCl (Catapres Tab) 0.1 mg Q8H PRN GT hypertension 09/24/19 13:15 12/23/19 13:14 Dextrose (Dextrose 50%) 25 ml Q30M PRN IV Hypoglycemia 09/24/19 11:30 12/23/19 11:29 Dextrose (Dextrose 50%) 50 ml Q30M PRN IV Hypoglycemia 09/24/19 11:30 12/23/19 11:29 Docusate Sodium (Colace) 100 mg DAILY GT 09/25/19 09:00 10/25/19 08:59 09/27/19 08:35 Enoxaparin Sodium (Lovenox) 40 mg DAILY SUBQ 09/25/19 09:00 12/24/19 08:59 09/27/19 08:42 Insulin Aspart (NovoLOG) Q6HR SUBQ 09/24/19 18:00 12/23/19 16:29 09/27/19 05:13 Insulin Detemir (Levemir) 10 units BEDTIME SUBQ 09/24/19 21:00 12/23/19 20:59 09/26/19 20:50 Magnesium Hydroxide (Mom) 30 ml DAILYPRN PRN GT Constipation 09/24/19 11:30 10/24/19 11:29 Multivitamins (Multivitamins W/ Minerals 15ml Liquid) 15 ml DAILY GT 09/25/19 09:00 10/25/19 08:59 09/27/19 08:36 Pantoprazole (Protonix) 40 mg DAILY IVP 09/25/19 09:00 10/25/19 08:59 09/27/19 10:05 Sennosides (Senokot) 17.2 mg QHS GT 09/24/19 21:00 10/24/19 20:59 09/26/19 20:38 Sodium Phosphate (Fleet's Sodium Phosl Enema) 133 ml DAILYPRN PRN RECTAL Constipation 09/24/19 11:30 10/24/19 11:29 Vancomycin HCl (Vanco pharmacy to dose) 1 ea DAILY PRN MISC Per rx protocol 09/27/19 10:00 10/27/19 09:59 Vancomycin HCl 1 gm/Dextrose 275 ml @ 183.708 mls/hr Q8H IVPB 09/27/19 12:00 10/02/19 11:59 Zinc Sulfate (Zinc Sulfate) 220 mg DAILY GT 09/25/19 09:00 12/24/19 08:59 09/27/19 08:36 Nallely Rasheed M.D. Sep 27, 2019 10:59
--- NOTE | 2019-09-27 11:38 | General Progress Note ---
Assessment/Plan Status: stable Assessment/Plan: S: not verbal O: seems comfortable, PEG tube, urinary Naik in place PHYSICAL EXAMINATION:HEAD AND NECK: Atraumatic and normocephalic. CHEST: Diffuse bronchial breathing sounds.HEART: S1 and S2. Regular rate and rhythm. ABDOMEN: Soft. PEG tube is in place.NEUROLOGIC: The patient is aphasic, however, is awake. MUSCULOSKELETAL:quadriparesis and paraplegic. LABORATORY DATA: Dated September 26 ASSESSMENT: 1. General deconditioning. 2. SIRS 3. UTI 3. History of CVA. 3. Dysphagia. 4. Debility, deconditioning, bedbound, quadriparesis. 5. Normocytic anemia. 6. Diabetes type 2. 7. GI and DVT prophylaxis. Plan: Targeted abx. c/w current abx Subjective Allergies: Coded Allergies: No Known Allergies (Unverified , 09/29/17) Objective Last 24 Hour Vital Signs Date Time Temp Pulse Resp B/P (MAP) Pulse Ox O2 Delivery O2 Flow Rate FiO2 09/27/19 08:00 98.2 90 18 109/68 (82) 95 09/27/19 04:44 99.0 09/27/19 04:00 100.2 100 20 108/68 (81) 95 09/27/19 00:00 99.7 110 24 128/69 (88) 94 09/26/19 21:00 Room Air 09/26/19 20:00 98.8 99 20 147/83 (104) 96 09/26/19 16:00 98.8 83 18 132/86 (101) 100 09/26/19 12:00 97.9 90 18 117/64 (81) 95 Intake and Output 09/26/19 09/27/19 19:00 07:00 Intake Total 60 ml 935 ml Output Total 600 ml Balance -540 ml 935 ml Intake Free Water 400 ml IV Total 55 ml Tube Feeding 60 ml 480 ml Output Urine Total 600 ml # Bowel Movements 1 Laboratory Tests 09/27/19 06:09: Pro-B-Type Natriuretic Peptide 507H Height (Feet): 5 Height (Inches): 8.00 Weight (Pounds): 150 Geo Whitten MD Sep 27, 2019 11:38
--- NOTE | 2019-09-27 12:05 | Pulmonology Progress Note ---
Subjective ROS Limited/Unobtainable: Yes Interval Events: None new Constitutional: Reports: no symptoms HEENT: Repors: no symptoms Respiratory: Reports: no symptoms Cardiovascular: Reports: no symptoms Allergies: Coded Allergies: No Known Allergies (Unverified , 09/29/17) Objective Last 24 Hour Vital Signs Date Time Temp Pulse Resp B/P (MAP) Pulse Ox O2 Delivery O2 Flow Rate FiO2 09/27/19 08:00 98.2 90 18 109/68 (82) 95 09/27/19 04:44 99.0 09/27/19 04:00 100.2 100 20 108/68 (81) 95 09/27/19 00:00 99.7 110 24 128/69 (88) 94 09/26/19 21:00 Room Air 09/26/19 20:00 98.8 99 20 147/83 (104) 96 09/26/19 16:00 98.8 83 18 132/86 (101) 100 Intake and Output 09/26/19 09/27/19 19:00 07:00 Intake Total 60 ml 935 ml Output Total 600 ml Balance -540 ml 935 ml Intake Free Water 400 ml IV Total 55 ml Tube Feeding 60 ml 480 ml Output Urine Total 600 ml # Bowel Movements 1 General Appearance: no acute distress HEENT: normocephalic Respiratory: chest wall non-tender Cardiovascular: normal peripheral pulses Abdomen: normal bowel sounds Microbiology Date/Time Source Procedure Growth Status 09/25/19 06:30 Nasopharynx SARS-CoV-2 RdRp Gene Assay - Final Complete 09/25/19 06:30 Urine,Clean Catch Urine Culture - Final Escherichia Coli - Esbl Complete Laboratory Tests 09/27/19 06:09: Pro-B-Type Natriuretic Peptide 507H Current Medications Medications (Trade) Dose Ordered Sig/Patience Route PRN Reason Start Time Stop Time Status Last Admin Dose Admin Acetaminophen (Tylenol) 650 mg Q4H PRN GT Mild Pain (Pain Scale 1-3) 09/24/19 11:30 10/24/19 11:29 Acetaminophen (Tylenol) 650 mg Q4H PRN GT Temp >100.5 09/24/19 11:30 10/24/19 11:29 Acetaminophen/ Hydrocodone Bitart ([place] 5/325) 1 tab Q6H PRN GT Pain Scale 4-10 09/24/19 11:30 10/01/19 11:29 Albuterol/ Ipratropium (Albuterol/ Ipratropium) 3 ml Q6H PRN INH Shortness of Breath 09/24/19 13:15 09/29/19 13:14 09/24/19 13:25 Ascorbic Acid (Vitamin C) 500 mg DAILY GT 09/25/19 09:00 10/25/19 08:59 09/27/19 08:35 Aspirin (ASA) 81 mg DAILY GT 09/25/19 09:00 11/09/19 08:59 09/27/19 08:35 Bisacodyl (Dulcolax) 10 mg DAILYPRN PRN RECTAL Constipation 09/24/19 11:30 12/23/19 11:29 Clonidine HCl (Catapres Tab) 0.1 mg Q8H PRN GT hypertension 09/24/19 13:15 12/23/19 13:14 Dextrose (Dextrose 50%) 25 ml Q30M PRN IV Hypoglycemia 09/24/19 11:30 12/23/19 11:29 Dextrose (Dextrose 50%) 50 ml Q30M PRN IV Hypoglycemia 09/24/19 11:30 12/23/19 11:29 Docusate Sodium (Colace) 100 mg DAILY GT 09/25/19 09:00 10/25/19 08:59 09/27/19 08:35 Enoxaparin Sodium (Lovenox) 40 mg DAILY SUBQ 09/25/19 09:00 12/24/19 08:59 09/27/19 08:42 Ertapenem 1 gm/ Sodium Chloride 55 ml @ 110 mls/hr Q24H IVPB 09/27/19 13:00 10/02/19 12:59 Insulin Aspart (NovoLOG) Q6HR SUBQ 09/24/19 18:00 12/23/19 16:29 09/27/19 05:13 Insulin Detemir (Levemir) 10 units BEDTIME SUBQ 09/24/19 21:00 12/23/19 20:59 09/26/19 20:50 Magnesium Hydroxide (Mom) 30 ml DAILYPRN PRN GT Constipation 09/24/19 11:30 10/24/19 11:29 Multivitamins (Multivitamins W/ Minerals 15ml Liquid) 15 ml DAILY GT 09/25/19 09:00 10/25/19 08:59 09/27/19 08:36 Pantoprazole (Protonix) 40 mg DAILY IVP 09/25/19 09:00 10/25/19 08:59 09/27/19 10:05 Sennosides (Senokot) 17.2 mg QHS GT 09/24/19 21:00 10/24/19 20:59 09/26/19 20:38 Sodium Phosphate (Fleet's Sodium Phosl Enema) 133 ml DAILYPRN PRN RECTAL Constipation 09/24/19 11:30 10/24/19 11:29 Vancomycin HCl (Vanco pharmacy to dose) 1 ea DAILY PRN MISC Per rx protocol 09/27/19 10:00 10/27/19 09:59 Vancomycin HCl 1 gm/Dextrose 275 ml @ 183.708 mls/hr Q8H IVPB 09/27/19 12:00 10/02/19 11:59 Zinc Sulfate (Zinc Sulfate) 220 mg DAILY GT 09/25/19 09:00 12/24/19 08:59 09/27/19 08:36 Assessment/Plan Assessment/Plan ASSESSMENT: 1. General deconditioning. 2. History of CVA. 3. H/o dysphagia. 4. Debility, deconditioning, bedbound, quadriparesis. 5. Normocytic anemia. 6. Diabetes type 2. 7. GI and DVT prophylaxis. 8. Stage 4 Sacral decubitus 9. Covid 19 negative x 2 PLAN OF CARE: O2 PRN Pulmonary care LE dupples r/o DVT PPX - Lovenox Monitor labs AB per Infectious Disease Ulisses Bunch MD Sep 27, 2019 12:05
[2019-09-27 12:08] VITALS: BP 117/71
[2019-09-27] MEDS: Vancomycin 1gm/D5W 275ml IVPB SCH ×4 (12:22→21:04)
[2019-09-27] MEDS: Albuterol/Ipratropium 3ml neb INH PRN (13:01)
[2019-09-27] MEDS: Ertapenem 1 GM in NS 55 ML IVPB SCH (13:45)
[2019-09-27 16:02] VITALS: BP 102/65
--- NOTE | 2019-09-27 16:34 | NUR ---
CASE MANAGEMENT:REVIEW 09/27/19 SI: SIRS. E COLI UTI. DECUB 100.2 100 20 108/68 95% ON RA BNP+507 IS: IV ERTAPENEM Q24 IV VANCOMYCIN Q8HRS LOVENOX SQ QD ASA GT QD IV PROTONIX QD ZINC GT QD : MED/SURG STATUS 4 EAST DCP: PATIENT IS FROM [facility] PLAN: BLOOD CX CHEST XRAY IN AM
--- NOTE | 2019-09-27 16:45 | NUR ---
INSURANCE CLINICALS AND REVIEWS FAXED TO [employer] T: [phone] F: [phone] REF # [id number]
--- NOTE | 2019-09-27 16:57 | NUR ---
NURSE NOTES: AWAITING FOR THE P200 MATTRESS. WOUND TREATMENT RENDERED OF THE SACRAL TODAY. REPOSITIONED. KEPT HOB ELEVATED FOR ASPIRATION PRECAUTION. WILL CONT TO MONITOR
--- NOTE | 2019-09-27 19:03 | NUR ---
HAND-OFF: Report given to
--- NOTE | 2019-09-27 19:49 | NUR ---
NURSE NOTES: Patient in bed, awake, nonverbal. Right side weakness. Iv site noted, iv fluid is infusing. GT feeding noted, continued during rounds. Flushed. Respiration is even and unlabored. Abdomen is soft. No s/s of pain or discomfort noted. GT clamp/valve an inch away from skin, darkened tubing. Will reassess. Call light is at bedside. Will continue plan of care.
[2019-09-27 20:00] VITALS: BP 115/68
--- NOTE | 2019-09-27 20:42 | Cardiology Progress Note ---
Assessment/Plan Assessment/Plan 1. Dyspnea likely due to pneumonitis due to COVID-19 infection, 2D echo reveals normal LV systolic and diastolic function with LVEF at 65%. 2. History of CVA with left hemiparesis. Continue ASA and atorvastatin. 3. Dysphagia, status post PEG placement. 4. History of diabetes mellitus. 5. History of dementia. 6. History of neuropathy. Subjective Subjective No cardiac events reported. Objective Last 24 Hour Vital Signs Date Time Temp Pulse Resp B/P (MAP) Pulse Ox O2 Delivery O2 Flow Rate FiO2 09/27/19 20:00 98.1 66 16 115/68 (84) 98 09/27/19 16:02 97.7 80 18 102/65 (77) 95 09/27/19 13:01 72 22 98 Room Air 21 76 18 96 09/27/19 12:08 98.2 73 18 117/71 (86) 97 09/27/19 09:00 Room Air 09/27/19 08:00 98.2 90 18 109/68 (82) 95 09/27/19 04:44 99.0 09/27/19 04:00 100.2 100 20 108/68 (81) 95 09/27/19 00:00 99.7 110 24 128/69 (88) 94 09/26/19 21:00 Room Air Intake and Output 09/26/19 09/27/19 19:00 07:00 Intake Total 60 ml 1095 ml Output Total 600 ml Balance -540 ml 1095 ml Intake Free Water 500 ml IV Total 55 ml Tube Feeding 60 ml 540 ml Output Urine Total 600 ml # Bowel Movements 1 2D Echo: TDS, normal LV systolic function, Grade I LVDD. Laboratory Tests Test 09/27/19 06:09 Pro-B-Type Natriuretic Peptide 507 pg/mL (0-125) H Microbiology Date/Time Source Procedure Growth Status 09/25/19 06:30 Nasopharynx SARS-CoV-2 RdRp Gene Assay - Final Complete 09/25/19 06:30 Urine,Clean Catch Urine Culture - Final Escherichia Coli - Esbl Complete Objective HEENT: Atraumatic, and normocephalic. Anicteric. Pupils are equal, round, and reactive to light and accommodation. Extraocular muscles intact. NECK: JVP less than 5 cm. No carotid bruit. Carotid upstrokes 2+ bilaterally. CARDIOVASCULAR: Normal S1, S2. Regular rate and rhythm. No murmurs, gallops, or rubs. PMI is at fourth intercostal space in the midclavicular line. LUNGS: Bibasilar crackles. ABDOMEN: Soft, nontender, nondistended. Positive G-tube. MUSCULOSKELETAL: Contracted. Sacral ulcers and heel ulcers. Rickey Abraham MD Sep 27, 2019 20:42
[2019-09-27] MEDS: Sennosides 8.6mg tab GT SCH (20:57)
[2019-09-27] MEDS: Levemir Flexpen SUBQ SCH (21:02)
[2019-09-28] VITALS: BP 112/69
[2019-09-28 04:00] VITALS: BP 121/70
[2019-09-28] MEDS: Vancomycin 1gm/D5W 275ml IVPB SCH ×6 (04:43→19:52)
[2019-09-28 06:06] LABS: BASOPHILS % (AUTO) 2.1 % (0.0-2.0); EOSINOPHILS % (AUTO) 7.8 % (0.0-3.0); HEMATOCRIT 33.4 % (42.0-52.0); HEMOGLOBIN 10.2 G/DL (14.2-18.0); MEAN CORPUSCULAR VOLUME 80 FL (80-99); MONOCYTES % (AUTO) 4.2 % (1.0-10.0); NEUTROPHILS % (AUTO) 60.1 % (45.0-75.0); PLATELET COUNT 232 K/UL (150-450); RED BLOOD COUNT 4.15 M/UL (4.70-6.10); RED CELL DISTRIBUTION WIDTH 16.4 % (11.6-14.8)
[2019-09-28] MEDS: NovoLOG Insulin Flexpen SUBQ SCH ×3 (06:06→17:25)
[2019-09-28 06:40] LABS: ALANINE AMINOTRANSFERASE 35 U/L (12-78); ALBUMIN 2.6 G/DL (3.4-5.0); ALBUMIN/GLOBULIN RATIO 0.5 (1.0-2.7); ALKALINE PHOSPHATASE 102 U/L (46-116); ASPARTATE AMINO TRANSFERASE 45 U/L (15-37); BILIRUBIN,TOTAL 0.2 MG/DL (0.2-1.0); BLOOD UREA NITROGEN 25 mg/dL (7-18); CALCIUM 8.9 MG/DL (8.5-10.1); CARBON DIOXIDE 32 MMOL/L (21-32); CREATININE 0.7 MG/DL (0.55-1.30)
--- NOTE | 2019-09-28 07:13 | NUR ---
HAND-OFF: Report given to ANGEL Bazan.
--- NOTE | 2019-09-28 07:20 | NUR ---
NURSE NOTES: RECEIVED PATIENT A/A/OX1, NONVERBAL. RESPONSIVE TO TACTILE STIMULI. HOB ELEVATED FOR ASPIRATION PRECAUTIONS. GT INPLACED AND TOLERATING WELL. NO GASTRIC RESIDUAL NOTED. PIV PATENT AND INTACT. NO ACUTE RESP DISTRESS NOTED. F/C INPLACED AND DRAINING WELL BY GRAVITY. KEPT BED IN THE LOWEST POSITION FOR SAFETY. SIDERAILS ARE UPX3. BED BRAKES AND LOCK ENGAGED. CALL LIGHT IS WITHIN REACH. WILL CONT TO MONITOR.
[2019-09-28 07:22] LABS: CHLORIDE 102 MMOL/L (98-107); POTASSIUM 3.7 MMOL/L (3.5-5.1); SODIUM 139 MMOL/L (136-145)
[2019-09-28 08:00] VITALS: BP 106/61
[2019-09-28] MEDS: Aspirin Baby 81mg GT SCH (08:31)
[2019-09-28] MEDS: Multivitamins W/Minerals 15 ML UDC GT SCH (08:31)
[2019-09-28] MEDS: Zinc Sulfate 220mg GT SCH (08:31)
[2019-09-28] MEDS: Ascorbic Acid 500mg tab GT SCH (08:31)
[2019-09-28] MEDS: Docusate 100mg/10ml Liq GT SCH (08:31)
[2019-09-28] MEDS: Enoxaparin 40mg Inj SUBQ SCH (08:32)
--- NOTE | 2019-09-28 08:54 | General Progress Note ---
Assessment/Plan Status: stable Assessment/Plan: S: not verbal O: seems comfortable, PEG tube, urinary Naik in place PHYSICAL EXAMINATION:HEAD AND NECK: Atraumatic and normocephalic. CHEST: Diffuse bronchial breathing sounds.HEART: S1 and S2. Regular rate and rhythm. ABDOMEN: Soft. PEG tube is in place.NEUROLOGIC: The patient is aphasic, however, is awake. MUSCULOSKELETAL:quadriparesis and paraplegic. LABORATORY DATA: Dated September 27 ASSESSMENT: 1. General deconditioning. 2. SIRS 3. UTI- Gram negatibe 3. History of CVA. 3. Dysphagia. 4. Debility, deconditioning, bedbound, quadriparesis. 5. Normocytic anemia. 6. Diabetes type 2. 7. GI and DVT prophylaxis. Plan: Targeted abx. c/w current abx Subjective Allergies: Coded Allergies: No Known Allergies (Unverified , 09/29/17) Objective Last 24 Hour Vital Signs Date Time Temp Pulse Resp B/P (MAP) Pulse Ox O2 Delivery O2 Flow Rate FiO2 09/28/19 08:00 97.2 70 18 106/61 (76) 97 09/28/19 04:00 97.3 71 16 121/70 (87) 95 09/28/19 00:00 96.8 77 16 112/69 (83) 98 09/27/19 21:00 Room Air 09/27/19 20:00 98.1 66 16 115/68 (84) 98 09/27/19 16:02 97.7 80 18 102/65 (77) 95 09/27/19 13:01 72 22 98 Room Air 21 76 18 96 09/27/19 12:08 98.2 73 18 117/71 (86) 97 09/27/19 09:00 Room Air Intake and Output 09/27/19 09/28/19 19:00 07:00 Intake Total 825.000 ml 1535.000 ml Output Total 600 ml 300 ml Balance 225.000 ml 1235.000 ml Intake Free Water 200 ml 600 ml IV Total 385.000 ml 275.000 ml Tube Feeding 240 ml 660 ml Output Urine Total 600 ml 300 ml # Bowel Movements 1 Laboratory Tests 09/28/19 04:26: White Blood Count 5.0, Red Blood Count 4.15L, Hemoglobin 10.2L, Hematocrit 33.4L , Mean Corpuscular Volume 80, Mean Corpuscular Hemoglobin 24.5L, Mean Corpuscular Hemoglobin Concent 30.5L, Red Cell Distribution Width 16.4H, Platelet Count 232, Mean Platelet Volume 9.2, Neutrophils (%) (Auto) 60.1, Lymphocytes (%) (Auto) 26.0, Monocytes (%) (Auto) 4.2, Eosinophils (%) (Auto) 7.8H, Basophils (%) (Auto) 2.1H, Sodium Level 139, Potassium Level 3.7, Chloride Level 102, Carbon Dioxide Level 32, Blood Urea Nitrogen 25H, Creatinine 0.7, Estimat Glomerular Filtration Rate > 60, Glucose Level 112H, Calcium Level 8.9, Total Bilirubin 0.2, Aspartate Amino Transf (AST/SGOT) 45H, Alanine Aminotransferase (ALT/SGPT) 35, Alkaline Phosphatase 102, Total Protein 7.7, Albumin 2.6L, Globulin 5.1, Albumin/Globulin Ratio 0.5L Height (Feet): 5 Height (Inches): 8.00 Weight (Pounds): 150 Geo Whitten MD Sep 28, 2019 08:54
--- NOTE | 2019-09-28 10:02 | NUR ---
NURSE NOTES: DR CRAVEN SEEN PATIENT AND LEAVE TOES OPEN TO AIR UNTIL XRAY WILL BE DONE AND GO
--- NOTE | 2019-09-28 10:36 | Pulmonology Progress Note ---
Subjective ROS Limited/Unobtainable: Yes Interval Events: None new Constitutional: Reports: no symptoms HEENT: Repors: no symptoms Respiratory: Reports: no symptoms Cardiovascular: Reports: no symptoms Allergies: Coded Allergies: No Known Allergies (Unverified , 09/29/17) Objective Last 24 Hour Vital Signs Date Time Temp Pulse Resp B/P (MAP) Pulse Ox O2 Delivery O2 Flow Rate FiO2 09/28/19 08:00 97.2 70 18 106/61 (76) 97 09/28/19 04:00 97.3 71 16 121/70 (87) 95 09/28/19 00:00 96.8 77 16 112/69 (83) 98 09/27/19 21:00 Room Air 09/27/19 20:00 98.1 66 16 115/68 (84) 98 09/27/19 16:02 97.7 80 18 102/65 (77) 95 09/27/19 13:01 72 22 98 Room Air 21 76 18 96 09/27/19 12:08 98.2 73 18 117/71 (86) 97 Intake and Output 09/27/19 09/28/19 19:00 07:00 Intake Total 825.000 ml 1535.000 ml Output Total 600 ml 300 ml Balance 225.000 ml 1235.000 ml Intake Free Water 200 ml 600 ml IV Total 385.000 ml 275.000 ml Tube Feeding 240 ml 660 ml Output Urine Total 600 ml 300 ml # Bowel Movements 1 General Appearance: no acute distress HEENT: normocephalic Respiratory: chest wall non-tender Cardiovascular: normal peripheral pulses Abdomen: normal bowel sounds Laboratory Tests 09/27/19 11:40: POC Whole Blood Glucose 127H 09/27/19 17:08: POC Whole Blood Glucose 137H 09/27/19 20:28: POC Whole Blood Glucose 106 09/27/19 23:24: POC Whole Blood Glucose 154H 09/28/19 04:26: White Blood Count 5.0, Red Blood Count 4.15L, Hemoglobin 10.2L, Hematocrit 33.4L , Mean Corpuscular Volume 80, Mean Corpuscular Hemoglobin 24.5L, Mean Corpuscular Hemoglobin Concent 30.5L, Red Cell Distribution Width 16.4H, Platelet Count 232, Mean Platelet Volume 9.2, Neutrophils (%) (Auto) 60.1, Lymphocytes (%) (Auto) 26.0, Monocytes (%) (Auto) 4.2, Eosinophils (%) (Auto) 7.8H, Basophils (%) (Auto) 2.1H, Sodium Level 139, Potassium Level 3.7, Chloride Level 102, Carbon Dioxide Level 32, Blood Urea Nitrogen 25H, Creatinine 0.7, Estimat Glomerular Filtration Rate > 60, Glucose Level 112H, Calcium Level 8.9, Total Bilirubin 0.2, Aspartate Amino Transf (AST/SGOT) 45H, Alanine Aminotransferase (ALT/SGPT) 35, Alkaline Phosphatase 102, Total Protein 7.7, Albumin 2.6L, Globulin 5.1, Albumin/Globulin Ratio 0.5L 09/28/19 05:54: POC Whole Blood Glucose 153H Current Medications Medications (Trade) Dose Ordered Sig/Patience Route PRN Reason Start Time Stop Time Status Last Admin Dose Admin Acetaminophen (Tylenol) 650 mg Q4H PRN GT Mild Pain (Pain Scale 1-3) 09/24/19 11:30 10/24/19 11:29 Acetaminophen (Tylenol) 650 mg Q4H PRN GT Temp >100.5 09/24/19 11:30 10/24/19 11:29 Acetaminophen/ Hydrocodone Bitart ([place] 5/325) 1 tab Q6H PRN GT Pain Scale 4-10 09/24/19 11:30 10/01/19 11:29 Albuterol/ Ipratropium (Albuterol/ Ipratropium) 3 ml Q6H PRN INH Shortness of Breath 09/24/19 13:15 09/29/19 13:14 09/27/19 13:01 Ascorbic Acid (Vitamin C) 500 mg DAILY GT 09/25/19 09:00 10/25/19 08:59 09/28/19 08:31 Aspirin (ASA) 81 mg DAILY GT 09/25/19 09:00 11/09/19 08:59 09/28/19 08:31 Bisacodyl (Dulcolax) 10 mg DAILYPRN PRN RECTAL Constipation 09/24/19 11:30 12/23/19 11:29 Clonidine HCl (Catapres Tab) 0.1 mg Q8H PRN GT hypertension 09/24/19 13:15 12/23/19 13:14 Dextrose (Dextrose 50%) 25 ml Q30M PRN IV Hypoglycemia 09/24/19 11:30 12/23/19 11:29 Dextrose (Dextrose 50%) 50 ml Q30M PRN IV Hypoglycemia 09/24/19 11:30 12/23/19 11:29 Docusate Sodium (Colace) 100 mg DAILY GT 09/25/19 09:00 10/25/19 08:59 09/28/19 08:31 Enoxaparin Sodium (Lovenox) 40 mg DAILY SUBQ 09/25/19 09:00 12/24/19 08:59 09/28/19 08:32 Ertapenem 1 gm/ Sodium Chloride 55 ml @ 110 mls/hr Q24H IVPB 09/27/19 13:00 10/02/19 12:59 09/27/19 13:45 Insulin Aspart (NovoLOG) Q6HR SUBQ 09/24/19 18:00 12/23/19 16:29 09/28/19 06:06 Insulin Detemir (Levemir) 10 units BEDTIME SUBQ 09/24/19 21:00 12/23/19 20:59 09/27/19 21:02 Magnesium Hydroxide (Mom) 30 ml DAILYPRN PRN GT Constipation 09/24/19 11:30 10/24/19 11:29 Multivitamins (Multivitamins W/ Minerals 15ml Liquid) 15 ml DAILY GT 09/25/19 09:00 10/25/19 08:59 09/28/19 08:31 Pantoprazole (Protonix) 40 mg DAILY IVP 09/25/19 09:00 10/25/19 08:59 09/27/19 10:05 Sennosides (Senokot) 17.2 mg QHS GT 09/24/19 21:00 10/24/19 20:59 09/27/19 20:57 Sodium Phosphate (Fleet's Sodium Phosl Enema) 133 ml DAILYPRN PRN RECTAL Constipation 09/24/19 11:30 10/24/19 11:29 Vancomycin HCl (Vanco pharmacy to dose) 1 ea DAILY PRN MISC Per rx protocol 09/27/19 10:00 10/27/19 09:59 Vancomycin HCl 1 gm/Dextrose 275 ml @ 183.708 mls/hr Q8H IVPB 09/27/19 12:00 10/02/19 11:59 09/28/19 04:43 Zinc Sulfate (Zinc Sulfate) 220 mg DAILY GT 09/25/19 09:00 12/24/19 08:59 09/28/19 08:31 Assessment/Plan Assessment/Plan ASSESSMENT: 1. General deconditioning. 2. History of CVA. 3. H/o dysphagia. 4. Debility, deconditioning, bedbound, quadriparesis. 5. Normocytic anemia. 6. Diabetes type 2. 7. GI and DVT prophylaxis. 8. Stage 4 Sacral decubitus 9. Covid 19 negative x 2 PLAN OF CARE: O2 PRN Pulmonary care LE dupples r/o DVT PPX - Lovenox Monitor labs AB per Infectious Disease Ulisses Bunch MD Sep 28, 2019 10:36
--- NOTE | 2019-09-28 11:05 | NUR ---
RADIOLOGY DEPT., CHEST X-RAY DONE.-P.DYE
[2019-09-28 11:43] VITALS: BP 110/65
--- NOTE | 2019-09-28 12:02 | Diagnostic Imaging Report ---
Indication: Cough Technique: One view of the chest Comparison: 09/24/2019 Findings: Lungs and pleural spaces are clear. The heart size is upper limits of normal. Impression: No acute process
[2019-09-28] MEDS: Pantoprazole Inj IVP SCH (12:42)
--- NOTE | 2019-09-28 14:03 | Surgery Progress Note ---
Surgery Progress Note Subjective Additional Comments no acute events exam stable comfortable labs noted Objective Last 24 Hour Vital Signs Date Time Temp Pulse Resp B/P (MAP) Pulse Ox O2 Delivery O2 Flow Rate FiO2 09/28/19 11:43 98.0 73 18 110/65 (80) 97 09/28/19 08:00 97.2 70 18 106/61 (76) 97 09/28/19 04:00 97.3 71 16 121/70 (87) 95 09/28/19 00:00 96.8 77 16 112/69 (83) 98 09/27/19 21:00 Room Air 09/27/19 20:00 98.1 66 16 115/68 (84) 98 09/27/19 16:02 97.7 80 18 102/65 (77) 95 I&O Intake and Output 09/27/19 09/28/19 19:00 07:00 Intake Total 825.000 ml 1625.000 ml Output Total 600 ml 300 ml Balance 225.000 ml 1325.000 ml Intake Free Water 200 ml 630 ml IV Total 385.000 ml 275.000 ml Tube Feeding 240 ml 720 ml Output Urine Total 600 ml 300 ml # Bowel Movements 1 Dressing: saturated Cardiovascular: RSR Respiratory: decreased breath sounds Abdomen: soft, non-tender, present bowel sounds Extremities: no cyanosis Laboratory Tests Test 09/27/19 17:08 09/27/19 20:28 09/27/19 23:24 09/28/19 04:26 POC Whole Blood Glucose 137 MG/DL (74-106) H 106 MG/DL (74-106) 154 MG/DL (74-106) H White Blood Count 5.0 K/UL (4.8-10.8) Red Blood Count 4.15 M/UL (4.70-6.10) L Hemoglobin 10.2 G/DL (14.2-18.0) L Hematocrit 33.4 % (42.0-52.0) L Mean Corpuscular Volume 80 FL (80-99) Mean Corpuscular Hemoglobin 24.5 PG (27.0-31.0) L Mean Corpuscular Hemoglobin Concent 30.5 G/DL (32.0-36.0) L Red Cell Distribution Width 16.4 % (11.6-14.8) H Platelet Count 232 K/UL (150-450) Mean Platelet Volume 9.2 FL (6.5-10.1) Neutrophils (%) (Auto) 60.1 % (45.0-75.0) Lymphocytes (%) (Auto) 26.0 % (20.0-45.0) Monocytes (%) (Auto) 4.2 % (1.0-10.0) Eosinophils (%) (Auto) 7.8 % (0.0-3.0) H Basophils (%) (Auto) 2.1 % (0.0-2.0) H Sodium Level 139 MMOL/L (136-145) Potassium Level 3.7 MMOL/L (3.5-5.1) Chloride Level 102 MMOL/L (98-107) Carbon Dioxide Level 32 MMOL/L (21-32) Blood Urea Nitrogen 25 mg/dL (7-18) H Creatinine 0.7 MG/DL (0.55-1.30) Estimat Glomerular Filtration Rate > 60 mL/min (>60) Glucose Level 112 MG/DL (74-106) H Calcium Level 8.9 MG/DL (8.5-10.1) Total Bilirubin 0.2 MG/DL (0.2-1.0) Aspartate Amino Transf (AST/SGOT) 45 U/L (15-37) H Alanine Aminotransferase (ALT/SGPT) 35 U/L (12-78) Alkaline Phosphatase 102 U/L (46-116) Total Protein 7.7 G/DL (6.4-8.2) Albumin 2.6 G/DL (3.4-5.0) L Globulin 5.1 g/dL Albumin/Globulin Ratio 0.5 (1.0-2.7) L Test 09/28/19 05:54 09/28/19 11:00 09/28/19 11:34 POC Whole Blood Glucose 153 MG/DL (74-106) H Pending Vancomycin Level Trough 17.7 ug/mL (5.0-12.0) H Plan Problems: (1) Septic shock (2) Dehydration (3) Hypokalemia (4) Hypocalcemia (5) Fever (6) Leukocytosis (7) Sepsis (8) Sacral decubitus ulcer Assessment & Plan: 64-year-old male well-known to me from prior care plans who presents with stage IV sacral decubitus ulcer that has been poor and slow healing. Periwound does identify some scarring and prior healed tissue. The wound is palpable down to the sacrum bone. No active infection identified. Dressings with mild heme saturation. No active drainage. No significant foul odor. Incontinence identified which does occasionally involve the wound bed. Borders and tunneling (L)6cm x(W)5.5cm x (D)2.5cm, undermining clockwise 10-11 by 2.8cm @10o'clock,tunneling clockwise @5o'clock by 4.9cm. Base of wound is beefy red. Additional shearing and hyperpigmentation periwound. Hyperpigmentation R and L ischial tuberosities. Tear noted to urinary Meatus . Resolving Full thickness Pressure injury. Base of injury 80% pink epithelial 20 % dry eschar. .Hyperpigmentation periwound.(L)4cm x (W) 4.5cm. R Heel is boggy but pink./L 1s3, 2nd and 4th nail matrix are necrotic but dry. R 1st and R4th nail matrix are necrotic but dry. Tx.Plan: Cleanse Sacral wound with Saline. Loosely Pack wound with Hydrogel impregnated Kerlix. Apply Moisture Barrier Paste Periwound. Cover with Optifoam drsg. Change Daily and prn. Apply Betadine to L heel. Cover with Optifoam drsg. Change every3 days and prn. Apply Betadine to R 1st and 2nd metatarsals Daily. Leave Open to air. Apply Betadine to L 1st,2nd and 4th metatarsals.Leave open to air. Apply Cavilon Skin Barrier to R heel and Malleoli. Cover with Optifoam drsg. Change every 7 days and prn. Reposition at least every 2hours or as tolerated. Place Pillow between knees. Off-load heels with pillow. APM/SELENA Mattress overlay. labs improved cont abx cont tf (9) Stage IV decubitus ulcer (10) Protein-calorie malnutrition, severe Assessment & Plan: alb 3.3 bmi 22.8 skin turgor poor wounds slow healing mvi vit c nutritional optimization (11) History of CVA (cerebrovascular accident) (12) Acute kidney injury (13) Acute encephalopathy (14) Hyperosmolar non-ketotic state in patient with type 2 diabetes mellitus (15) Acute CVA (cerebrovascular accident) (16) Hyperosmolar hyperglycemic coma due to diabetes mellitus without ketoacidosis Tonio Raza Sep 28, 2019 14:03
--- NOTE | 2019-09-28 14:26 | General Progress Note ---
Assessment/Plan Status: stable Assessment/Plan: 1. Dyspnea. 2. History of CVA with left hemiparesis. Continue ASA and atorvastatin. 3. Dysphagia, status post GJT placement. 4. History of diabetes mellitus. 5. History of dementia. 6. History of neuropathy 7. anemia JTF anemia work up fu cardiology note will fu Subjective ROS Limited/Unobtainable: No Allergies: Coded Allergies: No Known Allergies (Unverified , 09/29/17) Objective Last 24 Hour Vital Signs Date Time Temp Pulse Resp B/P (MAP) Pulse Ox O2 Delivery O2 Flow Rate FiO2 09/28/19 11:43 98.0 73 18 110/65 (80) 97 09/28/19 08:00 97.2 70 18 106/61 (76) 97 09/28/19 04:00 97.3 71 16 121/70 (87) 95 09/28/19 00:00 96.8 77 16 112/69 (83) 98 09/27/19 21:00 Room Air 09/27/19 20:00 98.1 66 16 115/68 (84) 98 09/27/19 16:02 97.7 80 18 102/65 (77) 95 Intake and Output 09/27/19 09/28/19 19:00 07:00 Intake Total 825.000 ml 1625.000 ml Output Total 600 ml 300 ml Balance 225.000 ml 1325.000 ml Intake Free Water 200 ml 630 ml IV Total 385.000 ml 275.000 ml Tube Feeding 240 ml 720 ml Output Urine Total 600 ml 300 ml # Bowel Movements 1 Laboratory Tests 09/27/19 17:08: POC Whole Blood Glucose 137H 09/27/19 20:28: POC Whole Blood Glucose 106 09/27/19 23:24: POC Whole Blood Glucose 154H 09/28/19 04:26: White Blood Count 5.0, Red Blood Count 4.15L, Hemoglobin 10.2L, Hematocrit 33.4L , Mean Corpuscular Volume 80, Mean Corpuscular Hemoglobin 24.5L, Mean Corpuscular Hemoglobin Concent 30.5L, Red Cell Distribution Width 16.4H, Platelet Count 232, Mean Platelet Volume 9.2, Neutrophils (%) (Auto) 60.1, Lymphocytes (%) (Auto) 26.0, Monocytes (%) (Auto) 4.2, Eosinophils (%) (Auto) 7.8H, Basophils (%) (Auto) 2.1H, Sodium Level 139, Potassium Level 3.7, Chloride Level 102, Carbon Dioxide Level 32, Blood Urea Nitrogen 25H, Creatinine 0.7, Estimat Glomerular Filtration Rate > 60, Glucose Level 112H, Calcium Level 8.9, Total Bilirubin 0.2, Aspartate Amino Transf (AST/SGOT) 45H, Alanine Aminotransferase (ALT/SGPT) 35, Alkaline Phosphatase 102, Total Protein 7.7, Albumin 2.6L, Globulin 5.1, Albumin/Globulin Ratio 0.5L 09/28/19 05:54: POC Whole Blood Glucose 153H 09/28/19 11:00: Vancomycin Level Trough 17.7H 09/28/19 11:34: POC Whole Blood Glucose [Pending] Height (Feet): 5 Height (Inches): 8.00 Weight (Pounds): 150 General Appearance: no apparent distress EENT: normal ENT inspection Neck: supple Cardiovascular: normal rate Respiratory/Chest: decreased breath sounds Abdomen: normal bowel sounds, non tender, soft Extremities: non-tender Alexis Constantino MD Sep 28, 2019 14:26
--- NOTE | 2019-09-28 14:37 | NUR ---
NURSE NOTES: PATIENT ON P200 MATTRESS NOW. WILL CONT TO MONITOR
--- NOTE | 2019-09-28 15:57 | Infectious Diseases Prog Note ---
Assessment/Plan ASSESSMENT: The patient is a 64-year-old male with worsening mental status. 1. Sepsis. Low grade fever; improving Leukocytosis, SP 2. UTI. -u/a wbc 2-4, nit neg, leuk +3; ucx >100k ESBL E.coli Gram positive bacteremia- contaminant vs real -09/23 Bcx 1/ GPC clustres; 09/26 Bcx p 3. Pulmonary congestion -09/27 CXR: No acute process -CXR: Mild cardiomegaly and pulmonary venous congestion. 4. Hx of COVID19 July 2019 -09/23, 09/24 Rapid COVID PCR neg x2 5. Acute encephalopathy COPD. Diabetes. stage IV sacral decubitus. peripheral neuropathy. History of CVA. Anemia. History of hyperglycemia. CHF. dysphagya/achalasia. History of DVT and pulmonary emboli. Hyperlipidemia. hypertension. GERD. MRSA and VRE colonized PLAN: 1.Ertapenem #2 /5-7 for ESBL UTI and IV Vancomycin #2 for GPC bacteremia -09/26 SP CEftriaxone #4 2. Monitor CBC/CMP 3. Monitor cultures (blood, urine). 4.COVID neg x2; ok to dc isolation 6. f/u Bc x2 7. Based on the patient's clinical course and laboratories, we will do further recommendations. Thank you for this consultation. I will follow the patient with you during this hospitalization. Discussed with RN. Subjective Allergies: Coded Allergies: No Known Allergies (Unverified , 09/29/17) afebrile >24hrs at RA no leukocytosis Objective Last 24 Hour Vital Signs Date Time Temp Pulse Resp B/P (MAP) Pulse Ox O2 Delivery O2 Flow Rate FiO2 09/28/19 11:43 98.0 73 18 110/65 (80) 97 09/28/19 08:00 97.2 70 18 106/61 (76) 97 09/28/19 04:00 97.3 71 16 121/70 (87) 95 09/28/19 00:00 96.8 77 16 112/69 (83) 98 09/27/19 21:00 Room Air 09/27/19 20:00 98.1 66 16 115/68 (84) 98 09/27/19 16:02 97.7 80 18 102/65 (77) 95 Height (Feet): 5 Height (Inches): 8.00 Weight (Pounds): 150 NECK: No lymphadenopathy. CHEST: Clear. HEART: S1 and S2. ABDOMEN: Soft, nontender. EXTREMITIES: No cyanosis. NEUROLOGIC: Nonverbal, awake. SKIN: Stage IV decubitus in sacral area, not grossly infected. No purulent discharge. Laboratory Tests Test 09/27/19 17:08 09/27/19 20:28 09/27/19 23:24 09/28/19 04:26 POC Whole Blood Glucose 137 MG/DL (74-106) H 106 MG/DL (74-106) 154 MG/DL (74-106) H White Blood Count 5.0 K/UL (4.8-10.8) Red Blood Count 4.15 M/UL (4.70-6.10) L Hemoglobin 10.2 G/DL (14.2-18.0) L Hematocrit 33.4 % (42.0-52.0) L Mean Corpuscular Volume 80 FL (80-99) Mean Corpuscular Hemoglobin 24.5 PG (27.0-31.0) L Mean Corpuscular Hemoglobin Concent 30.5 G/DL (32.0-36.0) L Red Cell Distribution Width 16.4 % (11.6-14.8) H Platelet Count 232 K/UL (150-450) Mean Platelet Volume 9.2 FL (6.5-10.1) Neutrophils (%) (Auto) 60.1 % (45.0-75.0) Lymphocytes (%) (Auto) 26.0 % (20.0-45.0) Monocytes (%) (Auto) 4.2 % (1.0-10.0) Eosinophils (%) (Auto) 7.8 % (0.0-3.0) H Basophils (%) (Auto) 2.1 % (0.0-2.0) H Sodium Level 139 MMOL/L (136-145) Potassium Level 3.7 MMOL/L (3.5-5.1) Chloride Level 102 MMOL/L (98-107) Carbon Dioxide Level 32 MMOL/L (21-32) Blood Urea Nitrogen 25 mg/dL (7-18) H Creatinine 0.7 MG/DL (0.55-1.30) Estimat Glomerular Filtration Rate > 60 mL/min (>60) Glucose Level 112 MG/DL (74-106) H Calcium Level 8.9 MG/DL (8.5-10.1) Total Bilirubin 0.2 MG/DL (0.2-1.0) Aspartate Amino Transf (AST/SGOT) 45 U/L (15-37) H Alanine Aminotransferase (ALT/SGPT) 35 U/L (12-78) Alkaline Phosphatase 102 U/L (46-116) Total Protein 7.7 G/DL (6.4-8.2) Albumin 2.6 G/DL (3.4-5.0) L Globulin 5.1 g/dL Albumin/Globulin Ratio 0.5 (1.0-2.7) L Test 09/28/19 05:54 09/28/19 11:00 09/28/19 11:34 POC Whole Blood Glucose 153 MG/DL (74-106) H Pending Vancomycin Level Trough 17.7 ug/mL (5.0-12.0) H Current Medications Medications (Trade) Dose Ordered Sig/Patience Route PRN Reason Start Time Stop Time Status Last Admin Dose Admin Acetaminophen (Tylenol) 650 mg Q4H PRN GT Mild Pain (Pain Scale 1-3) 09/24/19 11:30 10/24/19 11:29 Acetaminophen (Tylenol) 650 mg Q4H PRN GT Temp >100.5 09/24/19 11:30 10/24/19 11:29 Acetaminophen/ Hydrocodone Bitart (Lagrange 5/325) 1 tab Q6H PRN GT Pain Scale 4-10 09/24/19 11:30 10/01/19 11:29 Albuterol/ Ipratropium (Albuterol/ Ipratropium) 3 ml Q6H PRN INH Shortness of Breath 09/24/19 13:15 09/29/19 13:14 09/27/19 13:01 Ascorbic Acid (Vitamin C) 500 mg DAILY GT 09/25/19 09:00 10/25/19 08:59 09/28/19 08:31 Aspirin (ASA) 81 mg DAILY GT 09/25/19 09:00 11/09/19 08:59 09/28/19 08:31 Bisacodyl (Dulcolax) 10 mg DAILYPRN PRN RECTAL Constipation 09/24/19 11:30 12/23/19 11:29 Clonidine HCl (Catapres Tab) 0.1 mg Q8H PRN GT hypertension 09/24/19 13:15 12/23/19 13:14 Dextrose (Dextrose 50%) 25 ml Q30M PRN IV Hypoglycemia 09/24/19 11:30 12/23/19 11:29 Dextrose (Dextrose 50%) 50 ml Q30M PRN IV Hypoglycemia 09/24/19 11:30 12/23/19 11:29 Docusate Sodium (Colace) 100 mg DAILY GT 09/25/19 09:00 10/25/19 08:59 09/28/19 08:31 Enoxaparin Sodium (Lovenox) 40 mg DAILY SUBQ 09/25/19 09:00 12/24/19 08:59 09/28/19 08:32 Ertapenem 1 gm/ Sodium Chloride 55 ml @ 110 mls/hr Q24H IVPB 09/27/19 13:00 10/02/19 12:59 09/27/19 13:45 Insulin Aspart (NovoLOG) Q6HR SUBQ 09/24/19 18:00 12/23/19 16:29 09/28/19 06:06 Insulin Detemir (Levemir) 10 units BEDTIME SUBQ 09/24/19 21:00 12/23/19 20:59 09/27/19 21:02 Magnesium Hydroxide (Mom) 30 ml DAILYPRN PRN GT Constipation 09/24/19 11:30 10/24/19 11:29 Multivitamins (Multivitamins W/ Minerals 15ml Liquid) 15 ml DAILY GT 09/25/19 09:00 10/25/19 08:59 09/28/19 08:31 Pantoprazole (Protonix) 40 mg DAILY IVP 09/25/19 09:00 10/25/19 08:59 09/28/19 12:42 Sennosides (Senokot) 17.2 mg QHS GT 09/24/19 21:00 10/24/19 20:59 09/27/19 20:57 Sodium Phosphate (Fleet's Sodium Phosl Enema) 133 ml DAILYPRN PRN RECTAL Constipation 09/24/19 11:30 10/24/19 11:29 Vancomycin HCl (Vanco pharmacy to dose) 1 ea DAILY PRN MISC Per rx protocol 09/27/19 10:00 10/27/19 09:59 Vancomycin HCl 1 gm/Dextrose 275 ml @ 183.708 mls/hr Q8H IVPB 09/27/19 12:00 10/02/19 11:59 09/28/19 12:42 Zinc Sulfate (Zinc Sulfate) 220 mg DAILY GT 09/25/19 09:00 12/24/19 08:59 09/28/19 08:31 Nallely Rasheed M.D. Sep 28, 2019 15:57
[2019-09-28 16:05] VITALS: BP 110/64
[2019-09-28] MEDS: Ertapenem 1 GM in NS 55 ML IVPB SCH (16:15)
--- NOTE | 2019-09-28 16:22 | NUR ---
INSURANCE CLINICALS AND REVIEWS FAXED TO [employer] T: [phone] F: [phone] REF # [id number]
--- NOTE | 2019-09-28 16:42 | NUR ---
CASE MANAGEMENT:REVIEW SI;SIRS. E COLI UTI. DECUB. 97.3 77 18 121/70 95% ON RA BUN 25 BG 153 AST 45 ALB 2.6 IS;IV ERTAPENEM Q24 IV VANCOMYCIN Q8HRS LOVENOX SQ QD ASA GT QD IV PROTONIX QD ZINC GT QD MED/SURG STATUS 4 EAST DCP: PATIENT IS FROM [facility]
--- NOTE | 2019-09-28 19:22 | NUR ---
HAND-OFF: Report given to Juan Diego.
[2019-09-28 20:00] VITALS: BP 128/66
--- NOTE | 2019-09-28 20:00 | NUR ---
NURSE NOTES: Patient received in bed, awake, nonverbal. IV is intact and patent. FC draining via gravity. GTF tolerating well, 5cc residual. HOB elevated, aspiration precautions. Will continue plan of care.
[2019-09-28] MEDS: Levemir Flexpen SUBQ SCH (20:30)
[2019-09-28] MEDS: Sennosides 8.6mg tab GT SCH (20:34)
--- NOTE | 2019-09-28 23:56 | Cardiology Progress Note ---
Assessment/Plan Assessment/Plan 1. Dyspnea likely due to pneumonitis due to COVID-19 infection, 2D echo reveals normal LV systolic and diastolic function with LVEF at 65%. 2. History of CVA with left hemiparesis. Continue ASA and atorvastatin. 3. Dysphagia, status post PEG placement. 4. History of diabetes mellitus. 5. History of dementia. 6. History of neuropathy. Subjective Subjective No cardiac events reported. Objective Last 24 Hour Vital Signs Date Time Temp Pulse Resp B/P (MAP) Pulse Ox O2 Delivery O2 Flow Rate FiO2 09/28/19 21:00 Room Air 09/28/19 20:00 97.5 55 18 128/66 (86) 100 09/28/19 19:19 70 18 98 Room Air 21 09/28/19 16:05 97.2 68 18 110/64 (79) 98 09/28/19 11:43 98.0 73 18 110/65 (80) 97 09/28/19 09:00 Room Air 09/28/19 08:00 97.2 70 18 106/61 (76) 97 09/28/19 04:00 97.3 71 16 121/70 (87) 95 09/28/19 00:00 96.8 77 16 112/69 (83) 98 Intake and Output 09/27/19 09/28/19 19:00 07:00 Intake Total 825.000 ml 1625.000 ml Output Total 600 ml 300 ml Balance 225.000 ml 1325.000 ml Intake Free Water 200 ml 630 ml IV Total 385.000 ml 275.000 ml Tube Feeding 240 ml 720 ml Output Urine Total 600 ml 300 ml # Bowel Movements 1 2D Echo: TDS, normal LV systolic function, Grade I LVDD. Laboratory Tests Test 09/28/19 04:26 09/28/19 05:54 09/28/19 11:00 09/28/19 11:34 White Blood Count 5.0 K/UL (4.8-10.8) Red Blood Count 4.15 M/UL (4.70-6.10) L Hemoglobin 10.2 G/DL (14.2-18.0) L Hematocrit 33.4 % (42.0-52.0) L Mean Corpuscular Volume 80 FL (80-99) Mean Corpuscular Hemoglobin 24.5 PG (27.0-31.0) L Mean Corpuscular Hemoglobin Concent 30.5 G/DL (32.0-36.0) L Red Cell Distribution Width 16.4 % (11.6-14.8) H Platelet Count 232 K/UL (150-450) Mean Platelet Volume 9.2 FL (6.5-10.1) Neutrophils (%) (Auto) 60.1 % (45.0-75.0) Lymphocytes (%) (Auto) 26.0 % (20.0-45.0) Monocytes (%) (Auto) 4.2 % (1.0-10.0) Eosinophils (%) (Auto) 7.8 % (0.0-3.0) H Basophils (%) (Auto) 2.1 % (0.0-2.0) H Sodium Level 139 MMOL/L (136-145) Potassium Level 3.7 MMOL/L (3.5-5.1) Chloride Level 102 MMOL/L (98-107) Carbon Dioxide Level 32 MMOL/L (21-32) Blood Urea Nitrogen 25 mg/dL (7-18) H Creatinine 0.7 MG/DL (0.55-1.30) Estimat Glomerular Filtration Rate > 60 mL/min (>60) Glucose Level 112 MG/DL (74-106) H Calcium Level 8.9 MG/DL (8.5-10.1) Total Bilirubin 0.2 MG/DL (0.2-1.0) Aspartate Amino Transf (AST/SGOT) 45 U/L (15-37) H Alanine Aminotransferase (ALT/SGPT) 35 U/L (12-78) Alkaline Phosphatase 102 U/L (46-116) Total Protein 7.7 G/DL (6.4-8.2) Albumin 2.6 G/DL (3.4-5.0) L Globulin 5.1 g/dL Albumin/Globulin Ratio 0.5 (1.0-2.7) L POC Whole Blood Glucose 153 MG/DL (74-106) H Pending Vancomycin Level Trough 17.7 ug/mL (5.0-12.0) H Test 09/28/19 17:24 09/28/19 20:28 POC Whole Blood Glucose 105 MG/DL (74-106) 124 MG/DL (74-106) H Objective HEENT: Atraumatic, and normocephalic. Anicteric. Pupils are equal, round, and reactive to light and accommodation. Extraocular muscles intact. NECK: JVP less than 5 cm. No carotid bruit. Carotid upstrokes 2+ bilaterally. CARDIOVASCULAR: Normal S1, S2. Regular rate and rhythm. No murmurs, gallops, or rubs. PMI is at fourth intercostal space in the midclavicular line. LUNGS: Bibasilar crackles. ABDOMEN: Soft, nontender, nondistended. Positive G-tube. MUSCULOSKELETAL: Contracted. Sacral ulcers and heel ulcers. Rickey Abraham MD Sep 28, 2019 23:56
[2019-09-29] VITALS: BP 115/64
[2019-09-29] MEDS: Vancomycin 1gm/D5W 275ml IVPB SCH ×4 (03:40→13:18)
[2019-09-29 04:00] VITALS: BP 125/71
[2019-09-29] MEDS: NovoLOG Insulin Flexpen SUBQ SCH ×4 (05:01→17:55)
--- NOTE | 2019-09-29 05:19 | NUR ---
NURSE NOTES: Dressing changed on sacrum. Tolerated well.
--- NOTE | 2019-09-29 06:25 | NUR ---
RD ASSESSMENT & RECOMMENDATIONS SEE CARE ACTIVITY FOR COMPLETE ASSESSMENT DAILY ESTIMATED NEEDS: Needs based on Wound, bedbound 66kg 27-32 kcals/kg 7409-6009 total kcals 1.25-2 g protein/kg 83-132 g total protein 27-32ml/kcal mL/kg 9338-8590 total fluid mLs NUTRITION DIAGNOSIS: 1) Increased kcal and protein needs r/t wound healing, as evidenced by pt adm w/ multiple full thickness wounds, including sacral stage 4 wound, refer to WC eval 2) Swallowing difficulty r/t dysphagia and h/o CVA as evidenced by pt is PEG dep. CURRENT TF:Glucerna 1.5 @ 60ml/hr x 20 hrs ENTERAL NUTRITION RECOMMENDATIONS: Glucerna 1.5 @ 65ml/hr x 20 hrs to provide 1300ml, 1950kcal, 107g prot, 987ml free water - Increased goal by 5ml/hr to goal of 65ml/hr to better meet est needs - HOB over 30 degrees, flush per MD. ADDITIONAL RECOMMENDATIONS: 1) Wound care: Continue Vit C + ZnSO4; Add MIRELLA BID via PEG 2) Monitor BGs closely, watch for hypoglycemia when TF is held 3) Per SNF: 5'10", 146lbs -> Calibrated bedscale wt for accurate CBW 4) Monitor lytes, replete as needed . .
--- NOTE | 2019-09-29 07:29 | NUR ---
HAND-OFF: Report given to Cabrera ARREDONDO.
--- NOTE | 2019-09-29 07:50 | NUR ---
NURSE NOTES: PT RESTING IN BED IN HIGH PACK'S POSITION. IN NO APPARENT DISTRESS AT THIS TIME. JTUBE RUNNING GLUCERNA 1.5 AT 60ML/HR. TO BE TURNED OFF AT 0800HR. SIDDIQI CATH DRAINING CLEAR YELLOW URINE BY GRAVITY. PT ABLE TO OPEN EYES SPONTANEOUSLY. NO S/S PAIN USING FLACC PAIN SCALE. ABDOMEN IS ROUND AND SOFT. PT ON P200 MATTRESS. SUCTION SET-UP AT BEDSIDE. BED IN LOWEST POSITION WITH BEDSIDE RAILS X3 RAISED. BED ALARM ON. WILL CONTINUE TO MONITOR.
[2019-09-29 08:00] VITALS: BP 135/58
[2019-09-29 08:19] LABS: BASOPHILS % (AUTO) 2.1 % (0.0-2.0); EOSINOPHILS % (AUTO) 8.5 % (0.0-3.0); HEMATOCRIT 34.8 % (42.0-52.0); HEMOGLOBIN 10.8 G/DL (14.2-18.0); LYMPHOCYTES % (AUTO) 29.1 % (20.0-45.0); MEAN CORPUSCULAR VOLUME 79 FL (80-99); MONOCYTES % (AUTO) 5.7 % (1.0-10.0); NEUTROPHILS % (AUTO) 54.6 % (45.0-75.0); PLATELET COUNT 265 K/UL (150-450); RED BLOOD COUNT 4.37 M/UL (4.70-6.10); RED CELL DISTRIBUTION WIDTH 16.3 % (11.6-14.8); WHITE BLOOD COUNT 5.8 K/UL (4.8-10.8)
[2019-09-29 08:36] LABS: % IRON SATURATION 13 % (15-50); IRON 33 ug/dL (50-175); TOTAL IRON BINDING CAPACITY 254 ug/dL (250-450)
[2019-09-29] MEDS: Docusate 100mg/10ml Liq GT SCH (08:47)
[2019-09-29] MEDS: Zinc Sulfate 220mg GT SCH (08:47)
[2019-09-29] MEDS: Multivitamins W/Minerals 15 ML UDC GT SCH (08:47)
[2019-09-29] MEDS: Pantoprazole Inj IVP SCH (08:47)
[2019-09-29] MEDS: Aspirin Baby 81mg GT SCH (08:48)
[2019-09-29] MEDS: Ascorbic Acid 500mg tab GT SCH (08:48)
[2019-09-29] MEDS: Enoxaparin 40mg Inj SUBQ SCH (09:01)
--- NOTE | 2019-09-29 10:13 | Pulmonology Progress Note ---
Subjective ROS Limited/Unobtainable: No Interval Events: None new Constitutional: Reports: no symptoms HEENT: Repors: no symptoms Respiratory: Reports: no symptoms Cardiovascular: Reports: no symptoms Allergies: Coded Allergies: No Known Allergies (Unverified , 09/29/17) Objective Last 24 Hour Vital Signs Date Time Temp Pulse Resp B/P (MAP) Pulse Ox O2 Delivery O2 Flow Rate FiO2 09/29/19 09:00 Room Air 09/29/19 08:00 97.5 64 19 135/58 (83) 97 09/29/19 04:00 97.4 62 20 125/71 (89) 100 09/29/19 00:00 97.7 60 20 115/64 (81) 99 09/28/19 21:00 Room Air 09/28/19 20:00 97.5 55 18 128/66 (86) 100 09/28/19 19:19 70 18 98 Room Air 21 09/28/19 16:05 97.2 68 18 110/64 (79) 98 09/28/19 11:43 98.0 73 18 110/65 (80) 97 Intake and Output 09/28/19 09/29/19 19:00 07:00 Intake Total 1255.000 ml 1870.000 ml Output Total 600 ml 800 ml Balance 655.000 ml 1070.000 ml Intake Free Water 400 ml 600 ml IV Total 375.000 ml 550.000 ml Tube Feeding 480 ml 720 ml Output Urine Total 600 ml 800 ml # Bowel Movements 1 1 General Appearance: no acute distress HEENT: normocephalic Respiratory: chest wall non-tender Cardiovascular: normal peripheral pulses Abdomen: normal bowel sounds Microbiology Date/Time Source Procedure Growth Status 09/27/19 13:50 Blood Blood Culture - Preliminary NO GROWTH AFTER 24 HOURS Resulted 09/27/19 13:40 Blood Blood Culture - Preliminary NO GROWTH AFTER 24 HOURS Resulted Laboratory Tests 09/28/19 11:00: Vancomycin Level Trough 17.7H 09/28/19 11:34: POC Whole Blood Glucose [Pending] 09/28/19 17:24: POC Whole Blood Glucose 105 09/28/19 20:28: POC Whole Blood Glucose 124H 09/28/19 23:55: POC Whole Blood Glucose 117H 09/29/19 04:45: Stool Occult Blood [Pending] 09/29/19 04:56: POC Whole Blood Glucose 119H 09/29/19 07:30: White Blood Count 5.8, Red Blood Count 4.37L, Hemoglobin 10.8L, Hematocrit 34.8L , Mean Corpuscular Volume 79L, Mean Corpuscular Hemoglobin 24.6L, Mean Corpuscular Hemoglobin Concent 31.0L, Red Cell Distribution Width 16.3H, Platelet Count 265, Mean Platelet Volume 9.8, Neutrophils (%) (Auto) 54.6, Lymphocytes (%) (Auto) 29.1, Monocytes (%) (Auto) 5.7, Eosinophils (%) (Auto) 8.5H, Basophils (%) (Auto) 2.1H, Iron Level 33L, Total Iron Binding Capacity 254 , Percent Iron Saturation 13L, Unsaturated Iron Binding 221 Current Medications Medications (Trade) Dose Ordered Sig/Patience Route PRN Reason Start Time Stop Time Status Last Admin Dose Admin Acetaminophen (Tylenol) 650 mg Q4H PRN GT Mild Pain (Pain Scale 1-3) 09/24/19 11:30 10/24/19 11:29 Acetaminophen (Tylenol) 650 mg Q4H PRN GT Temp >100.5 09/24/19 11:30 10/24/19 11:29 Acetaminophen/ Hydrocodone Bitart ([place] 5/325) 1 tab Q6H PRN GT Pain Scale 4-10 09/24/19 11:30 10/01/19 11:29 Albuterol/ Ipratropium (Albuterol/ Ipratropium) 3 ml Q6H PRN INH Shortness of Breath 09/24/19 13:15 09/29/19 13:14 09/27/19 13:01 Ascorbic Acid (Vitamin C) 500 mg DAILY GT 09/25/19 09:00 10/25/19 08:59 09/29/19 08:48 Aspirin (ASA) 81 mg DAILY GT 09/25/19 09:00 11/09/19 08:59 09/29/19 08:48 Bisacodyl (Dulcolax) 10 mg DAILYPRN PRN RECTAL Constipation 09/24/19 11:30 12/23/19 11:29 Clonidine HCl (Catapres Tab) 0.1 mg Q8H PRN GT hypertension 09/24/19 13:15 12/23/19 13:14 Dextrose (Dextrose 50%) 25 ml Q30M PRN IV Hypoglycemia 09/24/19 11:30 12/23/19 11:29 Dextrose (Dextrose 50%) 50 ml Q30M PRN IV Hypoglycemia 09/24/19 11:30 12/23/19 11:29 Docusate Sodium (Colace) 100 mg DAILY GT 09/25/19 09:00 10/25/19 08:59 09/29/19 08:47 Enoxaparin Sodium (Lovenox) 40 mg DAILY SUBQ 09/25/19 09:00 12/24/19 08:59 09/29/19 09:01 Ertapenem 1 gm/ Sodium Chloride 55 ml @ 110 mls/hr Q24H IVPB 09/27/19 13:00 10/02/19 12:59 09/28/19 16:15 Insulin Aspart (NovoLOG) Q6HR SUBQ 09/24/19 18:00 12/23/19 16:29 09/28/19 06:06 Insulin Detemir (Levemir) 10 units BEDTIME SUBQ 09/24/19 21:00 12/23/19 20:59 09/28/19 20:30 Magnesium Hydroxide (Mom) 30 ml DAILYPRN PRN GT Constipation 09/24/19 11:30 10/24/19 11:29 Multivitamins (Multivitamins W/ Minerals 15ml Liquid) 15 ml DAILY GT 09/25/19 09:00 10/25/19 08:59 09/29/19 08:47 Pantoprazole (Protonix) 40 mg DAILY IVP 09/25/19 09:00 10/25/19 08:59 09/29/19 08:47 Sennosides (Senokot) 17.2 mg QHS GT 09/24/19 21:00 10/24/19 20:59 09/28/19 20:34 Sodium Phosphate (Fleet's Sodium Phosl Enema) 133 ml DAILYPRN PRN RECTAL Constipation 09/24/19 11:30 10/24/19 11:29 Vancomycin HCl (Vanco pharmacy to dose) 1 ea DAILY PRN MISC Per rx protocol 09/27/19 10:00 10/27/19 09:59 Vancomycin HCl 1 gm/Dextrose 275 ml @ 183.708 mls/hr Q8H IVPB 09/27/19 12:00 10/02/19 11:59 09/29/19 03:40 Zinc Sulfate (Zinc Sulfate) 220 mg DAILY GT 09/25/19 09:00 12/24/19 08:59 09/29/19 08:47 Assessment/Plan Assessment/Plan ASSESSMENT: 1. General deconditioning. 2. History of CVA. 3. H/o dysphagia. 4. Debility, deconditioning, bedbound, quadriparesis. 5. Normocytic anemia. 6. Diabetes type 2. 7. GI and DVT prophylaxis. 8. Stage 4 Sacral decubitus 9. Covid 19 negative x 2 PLAN OF CARE: O2 PRN Currently on RA Pulmonary care PPX - Lovenox Monitor labs AB per Infectious Disease Ulisses Bunch MD Sep 29, 2019 10:13
--- NOTE | 2019-09-29 10:21 | General Progress Note ---
Assessment/Plan Status: stable Assessment/Plan: S: not verbal O: seems comfortable, PEG tube, urinary Naik in place PHYSICAL EXAMINATION:HEAD AND NECK: Atraumatic and normocephalic. CHEST: Diffuse bronchial breathing sounds.HEART: S1 and S2. Regular rate and rhythm. ABDOMEN: Soft. PEG tube is in place.NEUROLOGIC: The patient is aphasic, however, is awake. MUSCULOSKELETAL:quadriparesis and paraplegic. LABORATORY DATA: Dated September 28 ASSESSMENT: 1. General deconditioning. 2. SIRS 3. UTI- Gram negatibe 3. History of CVA. 3. Dysphagia. 4. Debility, deconditioning, bedbound, quadriparesis. 5. Normocytic anemia. 6. Diabetes type 2. 7. GI and DVT prophylaxis. Plan: Targeted abx. c/w current abx Subjective Allergies: Coded Allergies: No Known Allergies (Unverified , 09/29/17) Objective Last 24 Hour Vital Signs Date Time Temp Pulse Resp B/P (MAP) Pulse Ox O2 Delivery O2 Flow Rate FiO2 09/29/19 09:00 Room Air 09/29/19 08:00 97.5 64 19 135/58 (83) 97 09/29/19 04:00 97.4 62 20 125/71 (89) 100 09/29/19 00:00 97.7 60 20 115/64 (81) 99 09/28/19 21:00 Room Air 09/28/19 20:00 97.5 55 18 128/66 (86) 100 09/28/19 19:19 70 18 98 Room Air 21 09/28/19 16:05 97.2 68 18 110/64 (79) 98 09/28/19 11:43 98.0 73 18 110/65 (80) 97 Intake and Output 09/28/19 09/29/19 19:00 07:00 Intake Total 1255.000 ml 1870.000 ml Output Total 600 ml 800 ml Balance 655.000 ml 1070.000 ml Intake Free Water 400 ml 600 ml IV Total 375.000 ml 550.000 ml Tube Feeding 480 ml 720 ml Output Urine Total 600 ml 800 ml # Bowel Movements 1 1 Laboratory Tests 09/28/19 11:00: Vancomycin Level Trough 17.7H 09/28/19 11:34: POC Whole Blood Glucose [Pending] 09/28/19 17:24: POC Whole Blood Glucose 105 09/28/19 20:28: POC Whole Blood Glucose 124H 09/28/19 23:55: POC Whole Blood Glucose 117H 09/29/19 04:45: Stool Occult Blood [Pending] 09/29/19 04:56: POC Whole Blood Glucose 119H 09/29/19 07:30: White Blood Count 5.8, Red Blood Count 4.37L, Hemoglobin 10.8L, Hematocrit 34.8L , Mean Corpuscular Volume 79L, Mean Corpuscular Hemoglobin 24.6L, Mean Corpuscular Hemoglobin Concent 31.0L, Red Cell Distribution Width 16.3H, Platelet Count 265, Mean Platelet Volume 9.8, Neutrophils (%) (Auto) 54.6, Lymphocytes (%) (Auto) 29.1, Monocytes (%) (Auto) 5.7, Eosinophils (%) (Auto) 8.5H, Basophils (%) (Auto) 2.1H, Iron Level 33L, Total Iron Binding Capacity 254 , Percent Iron Saturation 13L, Unsaturated Iron Binding 221 Height (Feet): 5 Height (Inches): 8.00 Weight (Pounds): 150 Geo Whitten MD Sep 29, 2019 10:21
--- NOTE | 2019-09-29 10:49 | NUR ---
NURSE NOTES: DISCHARGE ORDER NOTED. RN MADE MARTITA TARANGO AWARE. RN LEFT MESSAGE FOR DR CANALES'S OFFICE REGARDING DISCHARGE ANTIBIOTICS. AWAITING NEW ORDERS.
[2019-09-29] MEDS ORDERED: INVANZ1 G1 IV (10:56)
--- NOTE | 2019-09-29 11:01 | NUR ---
NURSE NOTES: PER REX DE [facility] VE[facility] TO STOP IV VANCOMYCIN. PT TO CONTINUE IV ERTAPENEM 1GM DAILY X 5 DAYS.
[2019-09-29] MEDS ORDERED: VITAMIN C500 M1 ORAL (11:07)
[2019-09-29] MEDS ORDERED: MULTIVITAMINS1 EAC8 ORAL (11:08)
[2019-09-29] MEDS ORDERED: ASPIRIN81 MG ORAL (11:08)
[2019-09-29] MEDS ORDERED: PROTONIX40 MG ORAL (11:09)
[2019-09-29] MEDS ORDERED: COLACE100 MG ORAL (11:09)
[2019-09-29] MEDS ORDERED: ZINC SULFATE220 M1 ORAL (11:10)
[2019-09-29] MEDS ORDERED: ACETAMINOPHEN500 M5 GT ×2 (11:11→11:12)
[2019-09-29] MEDS ORDERED: SENNA8.6 M2 PO (11:12)
[2019-09-29] MEDS ORDERED: MILK OF MA400 MG/51 ORAL (11:13)
[2019-09-29] MEDS ORDERED: NORCO 5-325 TA1 EAC1 ORAL (11:13)
[2019-09-29] MEDS ORDERED: CLONIDINE0.1 MG GT (11:14)
[2019-09-29] MEDS ORDERED: WAT IV (11:15)
[2019-09-29] MEDS ORDERED: DEXTROSE 5% IV (11:15)
[2019-09-29] MEDS ORDERED: D5W 50ML50 ML IV (11:15)
--- NOTE | 2019-09-29 11:28 | General Progress Note ---
Assessment/Plan Status: stable Assessment/Plan: 1. Dyspnea. 2. History of CVA with left hemiparesis. Continue ASA and atorvastatin. 3. Dysphagia, status post GJT placement. 4. History of diabetes mellitus. 5. History of dementia. 6. History of neuropathy 7. anemia JTF anemia work up>>iron def>> add venofer fu cardiology note will fu Subjective ROS Limited/Unobtainable: No Allergies: Coded Allergies: No Known Allergies (Unverified , 09/29/17) Objective Last 24 Hour Vital Signs Date Time Temp Pulse Resp B/P (MAP) Pulse Ox O2 Delivery O2 Flow Rate FiO2 09/29/19 09:00 Room Air 09/29/19 08:00 97.5 64 19 135/58 (83) 97 09/29/19 04:00 97.4 62 20 125/71 (89) 100 09/29/19 00:00 97.7 60 20 115/64 (81) 99 09/28/19 21:00 Room Air 09/28/19 20:00 97.5 55 18 128/66 (86) 100 09/28/19 19:19 70 18 98 Room Air 21 09/28/19 16:05 97.2 68 18 110/64 (79) 98 09/28/19 11:43 98.0 73 18 110/65 (80) 97 Intake and Output 09/28/19 09/29/19 19:00 07:00 Intake Total 1255.000 ml 1870.000 ml Output Total 600 ml 800 ml Balance 655.000 ml 1070.000 ml Intake Free Water 400 ml 600 ml IV Total 375.000 ml 550.000 ml Tube Feeding 480 ml 720 ml Output Urine Total 600 ml 800 ml # Bowel Movements 1 1 Laboratory Tests 09/28/19 11:34: POC Whole Blood Glucose [Pending] 09/28/19 17:24: POC Whole Blood Glucose 105 09/28/19 20:28: POC Whole Blood Glucose 124H 09/28/19 23:55: POC Whole Blood Glucose 117H 09/29/19 04:45: Stool Occult Blood [Pending] 09/29/19 04:56: POC Whole Blood Glucose 119H 09/29/19 07:30: White Blood Count 5.8, Red Blood Count 4.37L, Hemoglobin 10.8L, Hematocrit 34.8L , Mean Corpuscular Volume 79L, Mean Corpuscular Hemoglobin 24.6L, Mean Corpuscular Hemoglobin Concent 31.0L, Red Cell Distribution Width 16.3H, Platelet Count 265, Mean Platelet Volume 9.8, Neutrophils (%) (Auto) 54.6, Lymphocytes (%) (Auto) 29.1, Monocytes (%) (Auto) 5.7, Eosinophils (%) (Auto) 8.5H, Basophils (%) (Auto) 2.1H, Iron Level 33L, Total Iron Binding Capacity 254 , Percent Iron Saturation 13L, Unsaturated Iron Binding 221 Height (Feet): 5 Height (Inches): 8.00 Weight (Pounds): 150 General Appearance: lethargic EENT: normal ENT inspection Neck: supple Cardiovascular: normal rate Respiratory/Chest: decreased breath sounds Abdomen: soft, hypoactive bowel sounds Extremities: non-tender Alexis Constantino MD Sep 29, 2019 11:28
[2019-09-29 11:57] VITALS: BP 137/61
--- NOTE | 2019-09-29 12:54 | NUR ---
NURSE NOTES: RN SPOKE TO PHARMACY REGARDING MISSING IV VANCO AND IV ERTAPENEM.
--- NOTE | 2019-09-29 13:15 | Cardiology Progress Note ---
Assessment/Plan Assessment/Plan 1. Dyspnea likely due to pneumonitis due to COVID-19 infection, 2D echo reveals normal LV systolic and diastolic function with LVEF at 65%. 2. History of CVA with left hemiparesis. Continue ASA and atorvastatin. 3. Dysphagia, status post PEG placement. 4. History of diabetes mellitus. 5. History of dementia. 6. History of neuropathy. Subjective Subjective No cardiac events reported. Objective Last 24 Hour Vital Signs Date Time Temp Pulse Resp B/P (MAP) Pulse Ox O2 Delivery O2 Flow Rate FiO2 09/29/19 11:57 98.5 70 19 137/61 (86) 98 09/29/19 09:00 Room Air 09/29/19 08:00 97.5 64 19 135/58 (83) 97 09/29/19 04:00 97.4 62 20 125/71 (89) 100 09/29/19 00:00 97.7 60 20 115/64 (81) 99 09/28/19 21:00 Room Air 09/28/19 20:00 97.5 55 18 128/66 (86) 100 09/28/19 19:19 70 18 98 Room Air 21 09/28/19 16:05 97.2 68 18 110/64 (79) 98 Intake and Output 09/28/19 09/29/19 19:00 07:00 Intake Total 1255.000 ml 1870.000 ml Output Total 600 ml 800 ml Balance 655.000 ml 1070.000 ml Intake Free Water 400 ml 600 ml IV Total 375.000 ml 550.000 ml Tube Feeding 480 ml 720 ml Output Urine Total 600 ml 800 ml # Bowel Movements 1 1 2D Echo: TDS, normal LV systolic function, Grade I LVDD. Laboratory Tests Test 09/28/19 17:24 09/28/19 20:28 09/28/19 23:55 09/29/19 04:45 POC Whole Blood Glucose 105 MG/DL (74-106) 124 MG/DL (74-106) H 117 MG/DL (74-106) H Stool Occult Blood Negative (NEGATIVE) Test 09/29/19 04:56 09/29/19 07:30 09/29/19 11:43 POC Whole Blood Glucose 119 MG/DL (74-106) H 86 MG/DL (74-106) White Blood Count 5.8 K/UL (4.8-10.8) Red Blood Count 4.37 M/UL (4.70-6.10) L Hemoglobin 10.8 G/DL (14.2-18.0) L Hematocrit 34.8 % (42.0-52.0) L Mean Corpuscular Volume 79 FL (80-99) L Mean Corpuscular Hemoglobin 24.6 PG (27.0-31.0) L Mean Corpuscular Hemoglobin Concent 31.0 G/DL (32.0-36.0) L Red Cell Distribution Width 16.3 % (11.6-14.8) H Platelet Count 265 K/UL (150-450) Mean Platelet Volume 9.8 FL (6.5-10.1) Neutrophils (%) (Auto) 54.6 % (45.0-75.0) Lymphocytes (%) (Auto) 29.1 % (20.0-45.0) Monocytes (%) (Auto) 5.7 % (1.0-10.0) Eosinophils (%) (Auto) 8.5 % (0.0-3.0) H Basophils (%) (Auto) 2.1 % (0.0-2.0) H Iron Level 33 ug/dL (50-175) L Total Iron Binding Capacity 254 ug/dL (250-450) Percent Iron Saturation 13 % (15-50) L Unsaturated Iron Binding 221 ug/dL (112-346) Microbiology Date/Time Source Procedure Growth Status 09/27/19 13:50 Blood Blood Culture - Preliminary NO GROWTH AFTER 24 HOURS Resulted 09/27/19 13:40 Blood Blood Culture - Preliminary NO GROWTH AFTER 24 HOURS Resulted Objective HEENT: Atraumatic, and normocephalic. Anicteric. Pupils are equal, round, and reactive to light and accommodation. Extraocular muscles intact. NECK: JVP less than 5 cm. No carotid bruit. Carotid upstrokes 2+ bilaterally. CARDIOVASCULAR: Normal S1, S2. Regular rate and rhythm. No murmurs, gallops, or rubs. PMI is at fourth intercostal space in the midclavicular line. LUNGS: Bibasilar crackles. ABDOMEN: Soft, nontender, nondistended. Positive G-tube. MUSCULOSKELETAL: Contracted. Sacral ulcers and heel ulcers. Rickey Abraham MD Sep 29, 2019 13:15
--- NOTE | 2019-09-29 13:42 | Surgery Progress Note ---
Surgery Progress Note Subjective Symptoms: improved, tolerating diet, voiding well, passing flatus Objective Last 24 Hour Vital Signs Date Time Temp Pulse Resp B/P (MAP) Pulse Ox O2 Delivery O2 Flow Rate FiO2 09/29/19 11:57 98.5 70 19 137/61 (86) 98 09/29/19 09:00 Room Air 09/29/19 08:00 97.5 64 19 135/58 (83) 97 09/29/19 04:00 97.4 62 20 125/71 (89) 100 09/29/19 00:00 97.7 60 20 115/64 (81) 99 09/28/19 21:00 Room Air 09/28/19 20:00 97.5 55 18 128/66 (86) 100 09/28/19 19:19 70 18 98 Room Air 21 09/28/19 16:05 97.2 68 18 110/64 (79) 98 I&O Intake and Output 09/28/19 09/29/19 19:00 07:00 Intake Total 1255.000 ml 1870.000 ml Output Total 600 ml 800 ml Balance 655.000 ml 1070.000 ml Intake Free Water 400 ml 600 ml IV Total 375.000 ml 550.000 ml Tube Feeding 480 ml 720 ml Output Urine Total 600 ml 800 ml # Bowel Movements 1 1 Dressing: saturated Wound: clean Cardiovascular: RSR Respiratory: clear, decreased breath sounds Abdomen: soft, non-tender, present bowel sounds Extremities: edema, no tenderness, no cyanosis Laboratory Tests Test 09/28/19 17:24 09/28/19 20:28 09/28/19 23:55 09/29/19 04:45 POC Whole Blood Glucose 105 MG/DL (74-106) 124 MG/DL (74-106) H 117 MG/DL (74-106) H Stool Occult Blood Negative (NEGATIVE) Test 09/29/19 04:56 09/29/19 07:30 09/29/19 11:43 POC Whole Blood Glucose 119 MG/DL (74-106) H 86 MG/DL (74-106) White Blood Count 5.8 K/UL (4.8-10.8) Red Blood Count 4.37 M/UL (4.70-6.10) L Hemoglobin 10.8 G/DL (14.2-18.0) L Hematocrit 34.8 % (42.0-52.0) L Mean Corpuscular Volume 79 FL (80-99) L Mean Corpuscular Hemoglobin 24.6 PG (27.0-31.0) L Mean Corpuscular Hemoglobin Concent 31.0 G/DL (32.0-36.0) L Red Cell Distribution Width 16.3 % (11.6-14.8) H Platelet Count 265 K/UL (150-450) Mean Platelet Volume 9.8 FL (6.5-10.1) Neutrophils (%) (Auto) 54.6 % (45.0-75.0) Lymphocytes (%) (Auto) 29.1 % (20.0-45.0) Monocytes (%) (Auto) 5.7 % (1.0-10.0) Eosinophils (%) (Auto) 8.5 % (0.0-3.0) H Basophils (%) (Auto) 2.1 % (0.0-2.0) H Iron Level 33 ug/dL (50-175) L Total Iron Binding Capacity 254 ug/dL (250-450) Percent Iron Saturation 13 % (15-50) L Unsaturated Iron Binding 221 ug/dL (112-346) Plan Problems: (1) Septic shock (2) Dehydration (3) Hypokalemia (4) Hypocalcemia (5) Fever (6) Leukocytosis (7) Sepsis (8) Sacral decubitus ulcer Assessment & Plan: 64-year-old male well-known to me from prior care plans who presents with stage IV sacral decubitus ulcer that has been poor and slow healing. Periwound does identify some scarring and prior healed tissue. The wound is palpable down to the sacrum bone. No active infection identified. Dressings with mild heme saturation. No active drainage. No significant foul odor. Incontinence identified which does occasionally involve the wound bed. Borders and tunneling (L)6cm x(W)5.5cm x (D)2.5cm, undermining clockwise 10-11 by 2.8cm @10o'clock,tunneling clockwise @5o'clock by 4.9cm. Base of wound is beefy red. Additional shearing and hyperpigmentation periwound. Hyperpigmentation R and L ischial tuberosities. Tear noted to urinary Meatus . Resolving Full thickness Pressure injury. Base of injury 80% pink epithelial 20 % dry eschar. .Hyperpigmentation periwound.(L)4cm x (W) 4.5cm. R Heel is boggy but pink./L 1s3, 2nd and 4th nail matrix are necrotic but dry. R 1st and R4th nail matrix are necrotic but dry. Tx.Plan: Cleanse Sacral wound with Saline. Loosely Pack wound with Hydrogel impregnated Kerlix. Apply Moisture Barrier Paste Periwound. Cover with Optifoam drsg. Change Daily and prn. Apply Betadine to L heel. Cover with Optifoam drsg. Change every3 days and prn. Apply Betadine to R 1st and 2nd metatarsals Daily. Leave Open to air. Apply Betadine to L 1st,2nd and 4th metatarsals.Leave open to air. Apply Cavilon Skin Barrier to R heel and Malleoli. Cover with Optifoam drsg. Change every 7 days and prn. Reposition at least every 2hours or as tolerated. Place Pillow between knees. Off-load heels with pillow. APM/SELENA Mattress overlay. labs improved cont abx cont tf (9) Stage IV decubitus ulcer (10) Protein-calorie malnutrition, severe Assessment & Plan: alb 3.3 bmi 22.8 skin turgor poor wounds slow healing mvi vit c nutritional optimization (11) History of CVA (cerebrovascular accident) (12) Acute kidney injury (13) Acute encephalopathy (14) Hyperosmolar non-ketotic state in patient with type 2 diabetes mellitus (15) Acute CVA (cerebrovascular accident) (16) Hyperosmolar hyperglycemic coma due to diabetes mellitus without ketoacidosis Tonio Raza Sep 29, 2019 13:42
--- NOTE | 2019-09-29 13:59 | Infectious Diseases Prog Note ---
Assessment/Plan ASSESSMENT: The patient is a 64-year-old male with worsening mental status. 1. Sepsis. Low grade fever; SP Leukocytosis, SP 2. UTI. -u/a wbc 2-4, nit neg, leuk +3; ucx >100k ESBL E.coli Gram positive bacteremia- contaminant -09/23 Bcx 1/ S. capitis; 09/26 Bcx NTD 3. Pulmonary congestion -09/27 CXR: No acute process -CXR: Mild cardiomegaly and pulmonary venous congestion. 4. Hx of COVID19 July 2019 -09/23, 09/24 Rapid COVID PCR neg x2 5. Acute encephalopathy COPD. Diabetes. stage IV sacral decubitus. peripheral neuropathy. History of CVA. Anemia. History of hyperglycemia. CHF. dysphagya/achalasia. History of DVT and pulmonary emboli. Hyperlipidemia. hypertension. GERD. MRSA and VRE colonized PLAN: 1.Ertapenem #3 / for ESBL UTI Dc empiric IV Vancomycin #3 -09/26 SP CEftriaxone #4 2. Monitor CBC/CMP 3. Monitor cultures (blood, urine). 4.COVID neg x2; ok to dc isolation 6. f/u Bc x2 7. Ok to discharge on above regimen Thank you for this consultation. I will follow the patient with you during this hospitalization. Discussed with RN. Subjective Allergies: Coded Allergies: No Known Allergies (Unverified , 09/29/17) afebrile >24hrs at RA no leukocytosis Objective Last 24 Hour Vital Signs Date Time Temp Pulse Resp B/P (MAP) Pulse Ox O2 Delivery O2 Flow Rate FiO2 09/29/19 11:57 98.5 70 19 137/61 (86) 98 09/29/19 09:00 Room Air 09/29/19 08:00 97.5 64 19 135/58 (83) 97 09/29/19 04:00 97.4 62 20 125/71 (89) 100 09/29/19 00:00 97.7 60 20 115/64 (81) 99 09/28/19 21:00 Room Air 09/28/19 20:00 97.5 55 18 128/66 (86) 100 09/28/19 19:19 70 18 98 Room Air 21 09/28/19 16:05 97.2 68 18 110/64 (79) 98 Height (Feet): 5 Height (Inches): 8.00 Weight (Pounds): 150 NECK: No lymphadenopathy. CHEST: Clear. HEART: S1 and S2. ABDOMEN: Soft, nontender. EXTREMITIES: No cyanosis. NEUROLOGIC: Nonverbal, awake. SKIN: Stage IV decubitus in sacral area, not grossly infected. No purulent discharge. Microbiology Date/Time Source Procedure Growth Status 09/27/19 13:50 Blood Blood Culture - Preliminary NO GROWTH AFTER 24 HOURS Resulted 09/27/19 13:40 Blood Blood Culture - Preliminary NO GROWTH AFTER 24 HOURS Resulted Laboratory Tests Test 09/28/19 17:24 09/28/19 20:28 09/28/19 23:55 09/29/19 04:45 POC Whole Blood Glucose 105 MG/DL (74-106) 124 MG/DL (74-106) H 117 MG/DL (74-106) H Stool Occult Blood Negative (NEGATIVE) Test 09/29/19 04:56 09/29/19 07:30 09/29/19 11:43 POC Whole Blood Glucose 119 MG/DL (74-106) H 86 MG/DL (74-106) White Blood Count 5.8 K/UL (4.8-10.8) Red Blood Count 4.37 M/UL (4.70-6.10) L Hemoglobin 10.8 G/DL (14.2-18.0) L Hematocrit 34.8 % (42.0-52.0) L Mean Corpuscular Volume 79 FL (80-99) L Mean Corpuscular Hemoglobin 24.6 PG (27.0-31.0) L Mean Corpuscular Hemoglobin Concent 31.0 G/DL (32.0-36.0) L Red Cell Distribution Width 16.3 % (11.6-14.8) H Platelet Count 265 K/UL (150-450) Mean Platelet Volume 9.8 FL (6.5-10.1) Neutrophils (%) (Auto) 54.6 % (45.0-75.0) Lymphocytes (%) (Auto) 29.1 % (20.0-45.0) Monocytes (%) (Auto) 5.7 % (1.0-10.0) Eosinophils (%) (Auto) 8.5 % (0.0-3.0) H Basophils (%) (Auto) 2.1 % (0.0-2.0) H Iron Level 33 ug/dL (50-175) L Total Iron Binding Capacity 254 ug/dL (250-450) Percent Iron Saturation 13 % (15-50) L Unsaturated Iron Binding 221 ug/dL (112-346) Current Medications Medications (Trade) Dose Ordered Sig/Patience Route PRN Reason Start Time Stop Time Status Last Admin Dose Admin Acetaminophen (Tylenol) 650 mg Q4H PRN GT Mild Pain (Pain Scale 1-3) 09/24/19 11:30 10/24/19 11:29 Acetaminophen (Tylenol) 650 mg Q4H PRN GT Temp >100.5 09/24/19 11:30 10/24/19 11:29 Acetaminophen/ Hydrocodone Bitart ([place] 5/325) 1 tab Q6H PRN GT Pain Scale 4-10 09/24/19 11:30 10/01/19 11:29 Ascorbic Acid (Vitamin C) 500 mg DAILY GT 09/25/19 09:00 10/25/19 08:59 09/29/19 08:48 Aspirin (ASA) 81 mg DAILY GT 09/25/19 09:00 11/09/19 08:59 09/29/19 08:48 Bisacodyl (Dulcolax) 10 mg DAILYPRN PRN RECTAL Constipation 09/24/19 11:30 12/23/19 11:29 Clonidine HCl (Catapres Tab) 0.1 mg Q8H PRN GT hypertension 09/24/19 13:15 12/23/19 13:14 Dextrose (Dextrose 50%) 25 ml Q30M PRN IV Hypoglycemia 09/24/19 11:30 12/23/19 11:29 Dextrose (Dextrose 50%) 50 ml Q30M PRN IV Hypoglycemia 09/24/19 11:30 12/23/19 11:29 Docusate Sodium (Colace) 100 mg DAILY GT 09/25/19 09:00 10/25/19 08:59 09/29/19 08:47 Enoxaparin Sodium (Lovenox) 40 mg DAILY SUBQ 09/25/19 09:00 12/24/19 08:59 09/29/19 09:01 Ertapenem 1 gm/ Sodium Chloride 55 ml @ 110 mls/hr Q24H IVPB 09/27/19 13:00 10/02/19 12:59 09/28/19 16:15 Insulin Aspart (NovoLOG) Q6HR SUBQ 09/24/19 18:00 12/23/19 16:29 09/28/19 06:06 Insulin Detemir (Levemir) 10 units BEDTIME SUBQ 09/24/19 21:00 12/23/19 20:59 09/28/19 20:30 Iron Sucrose 100 mg/Sodium Chloride 60 ml @ 240 mls/hr BEDTIME IV 09/29/19 21:00 10/03/19 21:14 Magnesium Hydroxide (Mom) 30 ml DAILYPRN PRN GT Constipation 09/24/19 11:30 10/24/19 11:29 Multivitamins (Multivitamins W/ Minerals 15ml Liquid) 15 ml DAILY GT 09/25/19 09:00 10/25/19 08:59 09/29/19 08:47 Pantoprazole (Protonix) 40 mg DAILY IVP 09/25/19 09:00 10/25/19 08:59 09/29/19 08:47 Sennosides (Senokot) 17.2 mg QHS GT 09/24/19 21:00 10/24/19 20:59 09/28/19 20:34 Sodium Phosphate (Fleet's Sodium Phosl Enema) 133 ml DAILYPRN PRN RECTAL Constipation 09/24/19 11:30 10/24/19 11:29 Vancomycin HCl (Vanco pharmacy to dose) 1 ea DAILY PRN MISC Per rx protocol 09/27/19 10:00 10/27/19 09:59 Vancomycin HCl 1 gm/Dextrose 275 ml @ 183.708 mls/hr Q8H IVPB 09/27/19 12:00 10/02/19 11:59 09/29/19 13:18 Zinc Sulfate (Zinc Sulfate) 220 mg DAILY GT 09/25/19 09:00 12/24/19 08:59 09/29/19 08:47 Nallely Rasheed M.D. Sep 29, 2019 13:59
--- NOTE | 2019-09-29 14:33 | NUR ---
INSURANCE CLINICALS AND REVIEWS FAXED TO [facility] T: [phone] F: [phone] REF # [id number]
[2019-09-29] MEDS: Ertapenem 1 GM in NS 55 ML IVPB SCH (15:38)
[2019-09-29 16:00] VITALS: BP 131/67
--- NOTE | 2019-09-29 17:27 | NUR ---
*-*DISCHARGE PLANNED*-* PATIENT HAS BEEN ACCEPTED AND WILL BE DISCHARGED TO: [facility] P: [phone] FOR NURSE TO NURSE REPORT ROOM# 32.[facility] SET FOR NEXT AVAILABLE THROUGH CALL A CAR S/W WILLIE, PER RAJNI WILL CALL BACK WITH ETA . S/W PATIENTS CARO WINKLER , WHO IS IN AGREEMENT WITH DISCHARGE PLAN.
--- NOTE | 2019-09-29 17:29 | NUR ---
NURSE NOTES: CLARIFIED WITH DR ALDRICH TO STOP LOVENOX INJECTIONS AND REVIEWED DISCHARGE MEDICATIONS. REPORT GIVEN TO NAE AT [facility]. WOUND PICTURES TAKEN AND UPLOADED. RN REVIEWED BELONGINGS LIST. ONLY BELONGING IS GOWN, BUT NOT FOUND IN PT'S ROOM. RN SPOKE TO LIANNE WINKLER AND MADE AWARE OF DISCHARGE BACK TO [facility].
--- NOTE | 2019-09-29 17:50 | NUR ---
NURSE NOTES: RN SPOKE TO LAYNE AND CM. EMELINA LIFELINE (CALL THE CAR) TO CALL WITH ETA. PETR MADE AWARE.
--- NOTE | 2019-09-29 18:17 | NUR ---
HAND-OFF: Report given to KARI PERES RN.
--- NOTE | 2019-09-29 19:34 | NUR ---
NURSE NOTES: Patient discharged to [facility] via ambulance transfer. As per Nurse Cabrera Ruiz report given to Genesis ARREDONDO at [place]. All discharge instructions, medication list and paperwork endorsed to ambulance personnel. Jtube patent and intact. Naik cath secured and emptied. PIV intact as pt is to received IV meds at [facility]. Wound photos taken. Pt has no belongings. Pt left in stable condition.
[2019-09-29] MEDS ORDERED: Iron Sucrose 100 MG in NS 55 ML IV SCH (21:00)
--- NOTE | 2019-10-03 14:25 | Discharge Summary ---
Discharge Summary Discharge Summary _ DATE OF ADMISSION: 09/24/2019 DATE OF DISCHARGE: 09/29/2019 DISCHARGED BY: Dr. Whitten REASON FOR ADMISSION: 64 years old male, resident of assisted facility, with past medical history of diabetes mellitus, recent pneumonia, peripheral neuropathy, history of CVA, nonverbal, hypertension, COPD, dysphagia, feeding by G-tube, sent for evaluation due to cough and shortness of breath. Patient was hypoxic on room air. Patient was tested positive for COVID last month. Upon evaluation in emergency department vital signs were stable : no fever, pulse oximetry was stable on room air. Rapid COVID-19 in ED was negative. Laboratory work-up revealed no leukocytosis ,hemoglobin 12.2, hematocrit 39.7, platelet count 365. Glucose 108. Lactic acid 1.8. BUN 21, creatinine 0.8. Stable electrolytes. Troponin negative, pro BNP 479. Stool for occult blood was negative. Chest x-ray revealed mild cardiomegaly, pulmonary venous congestion. Urinalysis revealed +2 protein , +2 leukocyte esterase ,no pyuria and few bacteria. EKG revealed sinus rhythm , no acute ischemic changes. Patient subsequently admitted for further management CONSULTANTS: fingerprint expert Dr. Abraham pulmonary Dr. Bunch ID specialist Dr. Rasheed GI specialist Dr. Constantino surgery Dr. Raza [facility] COURSE: Patient admitted initially to isolation room. Repeated rapid COVID-19 was negative as well. senior living medications were resumed. Initial blood culture revealed Staph capitis. Repeated blood culture 09/26 were negative. Initial blood culture was most likely contaminant as per ID specialist Urine culture revealed E. coli ESBL. Patient started on meropenem based on sensitivity. Jet Operator followed. Per cardiology , dyspnea was likely due to pneumonitis secondary to COVID-19 infection. Echocardiogram revealed preserved ejection fraction 65% , no evidence of wall motion abnormality. Aspirin and statin continued. Strict aspiration precaution maintained. Supplemental oxygen provided and titrated to keep pulse oximetry above 92%. Pulmonary toilet provided. DVT and GI prophylaxis provided. Blood sugar was managed with sliding scale of insulin. Patient presented with stage IV sacral decubitus ulcer. Wound care provided per surgeon recommendation. Continue wound care at the facility. Protein supplements provided as per registered dietitian recommendation. Hemoglobin and hematocrit were closely monitored with goal to keep hemoglobin above 7. Hemoglobin and hematocrit remained at baseline , and prior to discharge hemoglobin 10.8, hematocrit 24.8. Supportive care provided. Bowel regimen instituted. Patient clinically stabilized and was ready for discharge back to assisted facility for continuation of care Patient will need to continue antibiotic at the facility to complete the course as per ID specialist recommendation. FINAL DIAGNOSES: Sepsis UTI with E. coli ESBL Recent history of COVID-19 / in July 2019 Acute encephalopathy Dyspnea, likely due to pneumonitis secondary to COVID-19 infection COPD Diabetes mellitus Peripheral neuropathy History of CVA with left hemiparesis Anemia History of DVT and pulmonary emboli Hypertension Dementia Severe protein calorie malnutrition Stage IV sacral decubitus ulcer , present on admission DISCHARGE MEDICATIONS: See Medication Reconciliation list. DISCHARGE INSTRUCTIONS: Patient was discharged to the assisted facility. Follow up with medical doctor at the facility. I have been assigned to dictate discharge summary for this account. I was not involved in the patient's management. Cyndee Hess NP Oct 03, 2019 14:25
== END 2019-09-29 19:10 | DRG 720 ==
LOC: EDBD 04:36 → EDUNIT# 04:36 → EMR 04:49 → EDBEDREQ 09:20 → 4E 09:24
DX: A41.9 Sepsis, unspecified organism (principal); G93.40 Encephalopathy, unspecified; R65.21 Severe sepsis with septic shock; R53.2 Functional quadriplegia; E86.0 Dehydration; E83.51 Hypocalcemia; L89.154 Pressure ulcer of sacral region, stage 4; E43 Unspecified severe protein-calorie malnutrition; I11.0 Hypertensive heart disease with heart failure; I50.9 Heart failure, unspecified; Z68.22 Body mass index [BMI] 22.0-22.9, adult; N17.9 Acute kidney failure, unspecified; E11.00 Type 2 diabetes mellitus with hyperosmolarity without nonketotic hyperglycemic-hyperosmolar coma (NKHHC); I69.354 Hemiplegia and hemiparesis following cerebral infarction affecting left non-dominant side; J12.89 Other viral pneumonia; B94.8 Sequelae of other specified infectious and parasitic diseases; G62.9 Polyneuropathy, unspecified; E87.6 Hypokalemia; J44.9 Chronic obstructive pulmonary disease, unspecified; R13.10 Dysphagia, unspecified; Z22.322 Carrier or suspected carrier of Methicillin resistant Staphylococcus aureus; N39.0 Urinary tract infection, site not specified; B96.20 Unspecified Escherichia coli [E. coli] as the cause of diseases classified elsewhere; Z16.12 Extended spectrum beta lactamase (ESBL) resistance
CPT/HCPCS: 36415; 71045; 80053; 80202; 81003; 82270; 82550; 82553; 82962; 83540; 83550; 83605; 83880; 84484; 85025; 85610; 85651; 85730; 86140; 87040; 87081; 87086; 87181; 93005; 93306; 93970; 94640; 94664; 96360; 96361; 99285; J1815; J7620; S5561; U0002